=== PATIENT | female | born 1945 | race Caucasian/White ===

== ENCOUNTER 2019-05-08 01:31 | Inpatient (IN) | payer MEDICARE, MEDICAID, SELFPAY ==
[2019-05-08] VITALS (20 sets, daily range): BP systolic 103–153; BP diastolic 54–97; PULSE 61–120; RESP 16–25; TEMP 36.4–37.5; O2SAT 92–98; BMI 39.3
--- NOTE | 2019-05-08 01:41 | XR_ITS ---
WS: [id number] ONE VIEW CHEST HISTORY: 74 years old Female with SOB AP upright chest comparison 11/25/2018 FINDINGS: Interval left perihilar and lower lung zone consolidation and small pleural thickening and/or effusio n. No pneumothorax or right pleural effusion. Lung hyperexpansion. Cardiomegaly and pulmonary venous congestion unchanged. Thoracic or atherosclerosis. No subdiaphragmatic free air seen. XR/XR chest 1V portable [id number] IMPRESSION: 1. Interval left perihilar and lower lung zone consolidation with small effusio n. Differential considerations include left perihilar and lower lung zone pneum onia or neoplasm with postobstructive pneumonia. Suggest continued radiographic follow-up to confirm resolution. 2. Chronic emphysema. 3. Cardiomegaly and atherosclerosis.
--- NOTE | 2019-05-08 01:42 | ECG_ITS ---
Measurements Intervals [place] Rate: 99 P: WI: 0 QRS: -10 QRSD: 82 T: 53 QT: 333 QTc: 427 ATRIAL FIBRILLATION ABNORMAL RHYTHM ECG Compared to ECG 12/10/2018 16:06:40 Sinus rhythm no longer present Electronically Signed On 05-08-2019 22:23:19 FINISH REPAIR WORKER by Eddie Avery M.D. [id number]
--- NOTE | 2019-05-08 01:43 | USCV_ITS ---
Michelle Becerra Age: 74 Gender: F : 1945 Exam Date: 05/08/2019 02:14 Ordering Phys: Sekou Navarro KNITTER OPERATOR Technologist: Agustín Antunez Exam Location: [facility] – [place] Indication: LT LEG PAIN AND SWELLING HISTORY: Lower extremity swelling. Lower extremity pain. PROCEDURES: The venous duplex Doppler examination of both lower extremities was performed in the standard fashion. The following venous structures were evaluated: common femoral vein, profunda vein, proximal portion of the greater saphenous vein, superficial femoral vein, and the popliteal vein. In addition, the posterior tibial and peroneal trunk were evaluated. Bilaterally, the common femoral, superficial femoral, profunda femoral, popliteal, posterior tibial, greater saphenous veins, and the peroneal trunk were identified and interrogated in the standard fashion. These veins were found to be easily compressible with spontaneous blood flow. No evidence of insufficiency or thrombus noted. FINDINGS: Normal 2-D Doppler and augmentation and compressibility throughout the lower extremity venous structures. Additional imaging through the proximal calf veins also reveals no thrombus. Limited evaluation of the greater saphenous vein is patent with no thrombus.. CONCLUSIONS 1. No evidence of bilateral lower extremity occlusive or obvious non occlusive DVT. 2. Extensive left calf edema and/or cellulitis. Hayder Britton MD (Electronically Signed) Final Date: 08 May 2019 08:37 S
--- NOTE | 2019-05-08 01:44 | ED_ITS ---
Documented by User: Sekou Navarro NP 05/09/19 00:56 HPI - SOB/Dyspnea General: Chief Complaint: Shortness of Breath/Dyspnea Stated Complaint: GENERAL ILLNESS Time Seen by Provider: 05/08/19 01:32 History of Present Illness: HPI Narrative: Patient is a 74-year-old female who presents to the emergency department complaint of shortness breath for 1 week. Worse laying on side. She denies any known fever. She does admit to increasing edema to the right lower extremity. She has chronic swelling to the left lower extremity ever since surgery. She admits to cough and body aches. Denies any new watering of the eyes. She denies any chest pain, pressure, tightness. She states she is ambulatory at home with a walker. EMS reports O2 sat was 92% she is a COPD patient and uses 2 L chronically. She states she did use her albute rol MDI prior to arrival. Denies history of CHF. History for DVT to the left lower extremity. She also has dyslipidemia diabetes and thyroid issues. Denies any hypertension. She denies ever smoking. Status post partial hysterectomy thyroid surgery. She is allergic to Zosyn but can take penicillin. Denies any pain currently. MD elicited complaint: shortness of breath and cough Pertinent past history: COPD Timing: progressively worsening Severity: moderate Exacerbating factors: lying flat, exertion, movement and coughing Relieving factors: nothing Known history of: COPD and DVT Associated symptoms: Reports cough; Deny abdominal pain, fever(s) or polyuria Review of Systems Const: Denies: fever Eyes: Denies: change in vision ENMT: Denies: dry mouth Card: Reports: edema and shortness of breath on exertion Resp: Reports: shortness of breath and productive cough GI: Denies: abdominal pain : Denies: flank pain, difficulty urinating or painful urination Musc: Denies: extremity swelling or redness Skin/Breast: Denies: rash or skin swelling Neuro: Denies: headache or weakness in extremities Psych: Denies: anxiety Endo: Denies: excessive urination Wai/Lymph: Denies: purpura All/Imm: Denies: hives PFS ED PFSH: Statuses (acute, chronic, etc) shown below reflect problem list status as previously entered and may not be historically accurate Medical History (Updated 05/08/19 @ 04:23 by Gagan Albright MD) GERD (gastroesophageal reflux disease) (Acute) Hypertension (Acute) Hypothyroidism (Acute) Lymphedema (Acute) Non-insulin dependent type 2 diabetes mellitus (Acute) Weight loss (Acute) Surgical History (Updated 05/08/19 @ 04:23 by Gagan Albright MD) H/O thyroidectomy (Acute) History of ankle surgery (Acute) Family History (Updated 05/08/19 @ 04:24 by Gagan Albright MD) Other Breast cancer CAD (coronary artery disease) Diabetes Hypertension Social History (Updated 05/08/19 @ 04:24 by Gagan Albright MD) Smoking and tobacco status: never smoked Alcohol intake: never Substance/Drug Use: never Physical Exam Const: COMMON NORMALS: no apparent distress, oriented x3 and alert ORIENTATION/CONSCIOUSNESS: Yes oriented to person and Yes oriented to place HENMT: COMMON NORMALS: normocephalic HEAD & SCALP: normal to inspection and normocephalic Eye: COMMON NORMALS: PERRL, EOMs intact bilaterally and conjunctivae normal GENERAL EYE: normal appearance of both eyes CONJUNCTIVA: Yes conjunctivae normal PUPIL: Yes PERRL Neck/C-Spine: COMMON NORMALS: full ROM, no lymphadenopathy, supple, no meningeal signs and no JVD GENERAL: Yes normal visual inspection and Yes trachea midline Lymph: LYMPHATIC: no lymphadenopathy noted Chest: COMMONS NORMALS: inspection of chest normal Resp: COMMON NORMALS: no retractions EFFORT & INSPECTION: Yes able to speak in complete sentences and Yes respiratory distress (Mild labored breathing) AUSCULTATION: diminished lung sounds Cardio: COMMON NORMALS: no JVD, regular rate and regular rhythm RATE: regular rate RHYTHM: regular rhythm GI: INSPECTION: Yes normal to inspection AUSCULTATION: Yes normoactive bowel sounds : COMMON NORMALS: Yes no CVA tenderness BLADDER/KIDNEY EXAM: Yes no CVA tenderness Back/Pelvis: COMMON NORMALS: no CVA tenderness THORACIC SPINE/UPPER BACK: Yes normal to inspection LUMBAR SPINE/LOWER BACK: Yes normal to inspection Extremity: COMMON NORMALS: full ROM and normal capillary refill GENERAL: Yes normal exam except as noted and Yes edema (2+ edema right lower extremity 4+ edema to left lower extremity) Neuro: COMMON NORMALS: oriented x3, CN's II-XII intact bilaterally, moves all extremities, no focal motor deficits and no sensory deficits noted SENSORIUM/ORIENTATION: Yes alert, Yes oriented to person and Yes oriented to place MENINGEAL SIGNS: Yes no meningeal signs SPEECH: speech normal GAI T: Yes normal gait Psych: COMMON NORMALS: mental status grossly normal, thought process normal, cooperative, affect normal and speech normal APPEARANCE: Yes grossly normal SPEECH: Yes normal speech THOUGHT PROCESS: normal thought process Skin: COMMON NORMALS: no rashes or lesions noted, no wounds and skin turgor normal GENERAL SKIN EXAM: no rashes or lesions noted, elasticity normal and turgor normal Course ED course: Medical screening examination initiated. Will obtain bilateral lower extremity venous ultrasound and evaluate for COPD exacerbation versus CHF. Vital Signs: Vital signs: Vital Signs Temperature 98 F 05/09/19 00:00 Pulse Rate 88 05/09/19 00:31 Respiratory Rate 22 H 05/09/19 00:31 Blood Pressure 146/69 05/09/19 00:00 Pulse Oximetry 95 05/09/19 00:31 MDM - SOB/Dyspnea Lab Data: Labs: Lab Results 05/08/19 05/08/19 05/08/19 Range/Units 02:05 02:05 02:05 WBC 5.4 (4.0-10.0) 10^3/ uL RBC 2.46 L (4.1-5.3) 10^6/u L Hgb 8.1 L (11.5-15.3) g/dL Hct 26.0 L (37.0-47.0) % MCV 105.7 H (81-99) fL MCH 32.9 (28.0-34.0) pg MCHC 31.2 (30.0-36.0) g/dL RDW 19.6 H (12.1-15.1) % Plt Count 240 (130-400) 10^3/c mm MPV 9.5 (7.4-10.4) fL Neut % (Auto) 88.5 % Lymph % (Auto) 5.6 % [place] % (Auto) 4.7 % Eos % (Auto) 0.6 % Baso % (Auto) 0.0 % Reticulocyte % (Au to) % Neut # (Auto) 4.7 (1.8-7.7) 10^3/u L Lymph # (Auto) 0.3 L (0.8-4.8) 10^3/u L [place] # (Auto) 0.3 (0.2-0.9) 10^3/u L Eos # (Auto) 0.0 (0.0-0.8) 10^3/u L Baso # (Auto) 0.0 (0.0-0.1) 10^3/u L Nucleated RBC % (a uto) 0 % Nucleated RBCs # 0.0 /100WBC D-Dimer 2.27 H (0-0.59) ug/mIFE U Sodium 135 L (136-145) mmol/L Potassium 3.6 (3.5-5.1) mmol/L Chloride 101 (98-107) mmol/L Carbon Dioxide 22 (22-29) mmol/L Anion Gap 15.6 (5-19) BUN 8 (8-23) mg/dL Creatinine 1.2 H (0.5-0.9) mg/dL Glucose 107 (65-115) mg/dL Lactic Acid (Sepsi s) (0.5-2.2) mmol/L Calcium 7.4 L (8.5-10.5) mg/dL Magnesium 1.6 L (1.7-2.3) mg/dL Iron (37-145) ug/dL TIBC mcg/dl % Saturation (20-50) % Unsat Iron Binding (112-347) ug/dL Ferritin (15-150) ng/mL Total Bilirubin 0.6 (0.15-1.2) mg/dL AST 13 (0-32) U/L ALT < 5 (0-33) U/L Alkaline Phosphata se 55 (35-105) IU/L Troponin T Baselin e (0-10) ng/mL Troponin T 120 Min [place] (0-10) ng/mL Delta Troponin T (0-10) ABS# NT-Pro-B Natriuret Pep 1382 H (0-450) pg/mL Total Protein 5.6 L (6.6-8.7) g/dL Albumin 2.7 L (3.5-5.2) g/dL Globulin 2.9 (1.3-4.6) g/dL Vitamin B12 (232-1245) pg/mL Folate (4.8-37.3) ng/mL Procalcitonin (0-0.5) ng/mL TSH (0.27-4.20) uIU/ mL Influenza Type A A g (Negative) POC Influenza B Ag (Negative) 05/08/19 05/08/19 05/08/19 Range/Units 02:05 02:05 02:05 WBC (4.0-10.0) 10^3/ uL RBC (4.1-5.3) 10^6/u L Hgb (11.5-15.3) g/dL Hct (37.0-47.0) % MCV (81-99) fL MCH (28.0-34.0) pg MCHC (30.0-36.0) g/dL RDW (12.1-15.1) % Plt Count (130-400) 10^3/c mm MPV (7.4-10.4) fL Neut % (Auto) % Lymph % (Auto) % [place] % (Auto) % Eos % (Auto) % Baso % (Auto) % Reticulocyte % (Au to) 3.4200 % Neut # (Auto) (1.8-7.7) 10^3/u L Lymph # (Auto) (0.8-4.8) 10^3/u L [place] # (Auto) (0.2-0.9) 10^3/u L Eos # (Auto) (0.0-0.8) 10^3/u L Baso # (Auto) (0.0-0.1) 10^3/u L Nucleated RBC % (a uto) % Nucleated RBCs # /100WBC D-Dimer (0-0.59) ug/mIFE U Sodium (136-145) mmol/L Potassium (3.5-5.1) mmol/L Chloride (98-107) mmol/L Carbon Dioxide (22-29) mmol/L Anion Gap (5-19) BUN (8-23) mg/dL Creatinine (0.5-0.9) mg/dL Glucose (65-115) mg/dL Lactic Acid (Sepsi s) 0.9 (0.5-2.2) mmol/L Calcium (8.5-10.5) mg/dL Magnesium (1.7-2.3) mg/dL Iron (37-145) ug/dL TIBC mcg/dl % Saturation (20-50) % Unsat Iron Binding (112-347) ug/dL Ferritin (15-150) ng/mL Total Bilirubin (0.15-1.2) mg/dL AST (0-32) U/L ALT (0-33) U/L Alkaline Phosphata se (35-105) IU/L Troponin T Baselin e 34 H (0-10) ng/mL Troponin T 120 Min [place] (0-10) ng/mL Delta Troponin T (0-10) ABS# NT-Pro-B Natriuret Pep (0-450) pg/mL Total Protein (6.6-8.7) g/dL Albumin (3.5-5.2) g/dL Globulin (1.3-4.6) g/dL Vitamin B12 (232-1245) pg/mL Folate (4.8-37.3) ng/mL Procalcitonin (0-0.5) ng/mL TSH (0.27-4.20) uIU/ mL Influenza Type A A g (Negative) POC Influenza B Ag (Negative) 05/08/19 05/08/19 05/08/19 Range/Units 02:05 02:05 02:05 WBC (4.0-10.0) 10^3/ uL RBC (4.1-5.3) 10^6/u L Hgb (11.5-15.3) g/dL Hct (37.0-47.0) % MCV (81-99) fL MCH (28.0-34.0) pg MCHC (30.0-36.0) g/dL RDW (12.1-15.1) % Plt Count (130-400) 10^3/c mm MPV (7.4-10.4) fL Neut % (Auto) % Lymph % (Auto) % [place] % (Auto) % Eos % (Auto) % Baso % (Auto) % Reticulocyte % (Au to) % Neut # (Auto) (1.8-7.7) 10^3/u L Lymph # (Auto) (0.8-4.8) 10^3/u L [place] # (Auto) (0.2-0.9) 10^3/u L Eos # (Auto) (0.0-0.8) 10^3/u L Baso # (Auto) (0.0-0.1) 10^3/u L Nucleated RBC % (a uto) % Nucleated RBCs # /100WBC D-Dimer (0-0.59) ug/mIFE U Sodium (136-145) mmol/L Potassium (3.5-5.1) mmol/L Chloride (98-107) mmol/L Carbon Dioxide (22-29) mmol/L Anion Gap (5-19) BUN (8-23) mg/dL Creatinine (0.5-0.9) mg/dL Glucose (65-115) mg/dL Lactic Acid (Sepsi s) (0.5-2.2) mmol/L Calcium (8.5-10.5) mg/dL Magnesium (1.7-2.3) mg/dL Iron 17 L (37-145) ug/dL TIBC 180 mcg/dl % Saturation 9.4 L (20-50) % Unsat Iron Binding 163 (112-347) ug/dL Ferritin 94 (15-150) ng/mL Total Bilirubin (0.15-1.2) mg/dL AST (0-32) U/L ALT (0-33) U/L Alkaline Phosphata se (35-105) IU/L Troponin T Baselin e (0-10) ng/mL Troponin T 120 Min [place] (0-10) ng/mL Delta Troponin T (0-10) ABS# NT-Pro-B Natriuret Pep (0-450) pg/mL Total Protein (6.6-8.7) g/dL Albumin (3.5-5.2) g/dL Globulin (1.3-4.6) g/dL Vitamin B12 150 L (232-1245) pg/mL Folate 3.9 L (4.8-37.3) ng/mL Procalcitonin 0.20 (0-0.5) ng/mL TSH 0.50 (0.27-4.20) uIU/ mL Influenza Type A A g (Negative) POC Influenza B Ag (Negative) 05/08/19 05/08/19 Range/Units 03:27 04:04 WBC (4.0-10.0) 10^3/ uL RBC (4.1-5.3) 10^6/u L Hgb (11.5-15.3) g/dL Hct (37.0-47.0) % MCV (81-99) fL MCH (28.0-34.0) pg MCHC (30.0-36.0) g/dL RDW (12.1-15.1) % Plt Count (130-400) 10^3/c mm MPV (7.4-10.4) fL Neut % (Auto) % Lymph % (Auto) % [place] % (Auto) % Eos % (Auto) % Baso % (Auto) % Reticulocyte % (Au to) % Neut # (Auto) (1.8-7.7) 10^3/u L Lymph # (Auto) (0.8-4.8) 10^3/u L [place] # (Auto) (0.2-0.9) 10^3/u L Eos # (Auto) (0.0-0.8) 10^3/u L Baso # (Auto) (0.0-0.1) 10^3/u L Nucleated RBC % (a uto) % Nucleated RBCs # /100WBC D-Dimer (0-0.59) ug/mIFE U Sodium (136-145) mmol/L Potassium (3.5-5.1) mmol/L Chloride (98-107) mmol/L Carbon Dioxide (22-29) mmol/L Anion Gap (5-19) BUN (8-23) mg/dL Creatinine (0.5-0.9) mg/dL Glucose (65-115) mg/dL Lactic Acid (Sepsi s) (0.5-2.2) mmol/L Calcium (8.5-10.5) mg/dL Magnesium (1.7-2.3) mg/dL Iron (37-145) ug/dL TIBC mcg/dl % Saturation (20-50) % Unsat Iron Binding (112-347) ug/dL Ferritin (15-150) ng/mL Total Bilirubin (0.15-1.2) mg/dL AST (0-32) U/L ALT (0-33) U/L Alkaline Phosphata se (35-105) IU/L Troponin T Baselin e (0-10) ng/mL Troponin T 120 Min [place] 35.90 H (0-10) ng/mL Delta Troponin T 1.90 (0-10) ABS# NT-Pro-B Natriuret Pep (0-450) pg/mL Total Protein (6.6-8.7) g/dL Albumin (3.5-5.2) g/dL Globulin (1.3-4.6) g/dL Vitamin B12 (232-1245) pg/mL Folate (4.8-37.3) ng/mL Procalcitonin (0-0.5) ng/mL TSH (0.27-4.20) uIU/ mL Influenza Type A A g Negative (Negative) POC Influenza B Ag Negative (Negative) Discharge Plan Discharge Admit Provider: Gagan Albright Discharge Date/Time: 05/08/19 05:29 Coding Level of Care Code ED Commercial 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 Documented by User: Juwan Garcia DO 05/08/19 19:49 HPI - SOB/Dyspnea General: Chief Complaint: Shortness of Breath/Dyspnea Stated Complaint: GENERAL ILLNESS Time Seen by Provider: 05/08/19 01:32 PFSH ED PFSH: Statuses (acute, chronic, etc) shown below reflect problem list status as previously entered and may not be historically accurate Medical History (Updated 05/08/19 @ 04:23 by Gagan Albright MD) GERD (gastroesophageal reflux disease) (Acute) Hypertension (Acute) Hypothyroidism (Acute) Lymphedema (Acute) Non-insulin dependent type 2 diabetes mellitus (Acute) Weight loss (Acute) Surgical History (Updated 05/08/19 @ 04:23 by Gagan Albright MD) H/O thyroidectomy (Acute) History of ankle surgery (Acute) Family History (Updated 05/08/19 @ 04:24 by Gagan Albright MD) Other Breast cancer CAD (coronary artery disease) Diabetes Hypertension Social History (Updated 05/08/19 @ 04:24 by Gagan Albright MD) Smoking and tobacco status: never smoked Alcohol intake: never Substance/Drug Use: never Course Vital Signs: Vital signs: Vital Signs Temperature 98 F 05/09/19 00:00 Pulse Rate 88 05/09/19 00:31 Respiratory Rate 22 H 05/09/19 00:31 Blood Pressure 146/69 05/09/19 00:00 Pulse Oximetry 95 05/09/19 00:31 MDM - SOB/Dyspnea MDM Narrative: Medical decision making narrative: This patient was originally seen by JAIDA Walters. I agree with his history, evaluation, and work-up. He checked her out to me. She was a 74-year-old female presenting with shortness of breath. Her blood pressure was low initially, but improved. She has a significant left-sided pleural effusion. Her BNP is elevated. There is no leukocytosis. She does have an elevated d-dimer as well. CTA has been ordered and is pending. She will go to the floor Lab Data: Labs: Lab Results 05/08/19 05/08/19 05/08/19 Range/Units 02:05 02:05 02:05 WBC 5.4 (4.0-10.0) 10^3/ uL RBC 2.46 L (4.1-5.3) 10^6/u L Hgb 8.1 L (11.5-15.3) g/dL Hct 26.0 L (37.0-47.0) % MCV 105.7 H (81-99) fL MCH 32.9 (28.0-34.0) pg MCHC 31.2 (30.0-36.0) g/dL RDW 19.6 H (12.1-15.1) % Plt Count 240 (130-400) 10^3/c mm MPV 9.5 (7.4-10.4) fL Neut % (Auto) 88.5 % Lymph % (Auto) 5.6 % [place] % (Auto) 4.7 % Eos % (Auto) 0.6 % Baso % (Auto) 0.0 % Reticulocyte % (Au to) % Neut # (Auto) 4.7 (1.8-7.7) 10^3/u L Lymph # (Auto) 0.3 L (0.8-4.8) 10^3/u L [place] # (Auto) 0.3 (0.2-0.9) 10^3/u L Eos # (Auto) 0.0 (0.0-0.8) 10^3/u L Baso # (Auto) 0.0 (0.0-0.1) 10^3/u L Nucleated RBC % (a uto) 0 % Nucleated RBCs # 0.0 /100WBC D-Dimer 2.27 H (0-0.59) ug/mIFE U Sodium 135 L (136-145) mmol/L Potassium 3.6 (3.5-5.1) mmol/L Chloride 101 (98-107) mmol/L Carbon Dioxide 22 (22-29) mmol/L Anion Gap 15.6 (5-19) BUN 8 (8-23) mg/dL Creatinine 1.2 H (0.5-0.9) mg/dL Glucose 107 (65-115) mg/dL Lactic Acid (Sepsi s) (0.5-2.2) mmol/L Calcium 7.4 L (8.5-10.5) mg/dL Magnesium 1.6 L (1.7-2.3) mg/dL Iron (37-145) ug/dL TIBC mcg/dl % Saturation (20-50) % Unsat Iron Binding (112-347) ug/dL Ferritin (15-150) ng/mL Total Bilirubin 0.6 (0.15-1.2) mg/dL AST 13 (0-32) U/L ALT < 5 (0-33) U/L Alkaline Phosphata se 55 (35-105) IU/L Troponin T Baselin e (0-10) ng/mL Troponin T 120 Min [place] (0-10) ng/mL Delta Troponin T (0-10) ABS# NT-Pro-B Natriuret Pep 1382 H (0-450) pg/mL Total Protein 5.6 L (6.6-8.7) g/dL Albumin 2.7 L (3.5-5.2) g/dL Globulin 2.9 (1.3-4.6) g/dL Vitamin B12 (232-1245) pg/mL Folate (4.8-37.3) ng/mL Procalcitonin (0-0.5) ng/mL TSH (0.27-4.20) uIU/ mL Influenza Type A A g (Negative) POC Influenza B Ag (Negative) 05/08/19 05/08/19 05/08/19 Range/Units 02:05 02:05 02:05 WBC (4.0-10.0) 10^3/ uL RBC (4.1-5.3) 10^6/u L Hgb (11.5-15.3) g/dL Hct (37.0-47.0) % MCV (81-99) fL MCH (28.0-34.0) pg MCHC (30.0-36.0) g/dL RDW (12.1-15.1) % Plt Count (130-400) 10^3/c mm MPV (7.4-10.4) fL Neut % (Auto) % Lymph % (Auto) % [place] % (Auto) % Eos % (Auto) % Baso % (Auto) % Reticulocyte % (Au to) 3.4200 % Neut # (Auto) (1.8-7.7) 10^3/u L Lymph # (Auto) (0.8-4.8) 10^3/u L [place] # (Auto) (0.2-0.9) 10^3/u L Eos # (Auto) (0.0-0.8) 10^3/u L Baso # (Auto) (0.0-0.1) 10^3/u L Nucleated RBC % (a uto) % Nucleated RBCs # /100WBC D-Dimer (0-0.59) ug/mIFE U Sodium (136-145) mmol/L Potassium (3.5-5.1) mmol/L Chloride (98-107) mmol/L Carbon Dioxide (22-29) mmol/L Anion Gap (5-19) BUN (8-23) mg/dL Creatinine (0.5-0.9) mg/dL Glucose (65-115) mg/dL Lactic Acid (Sepsi s) 0.9 (0.5-2.2) mmol/L Calcium (8.5-10.5) mg/dL Magnesium (1.7-2.3) mg/dL Iron (37-145) ug/dL TIBC mcg/dl % Saturation (20-50) % Unsat Iron Binding (112-347) ug/dL Ferritin (15-150) ng/mL Total Bilirubin (0.15-1.2) mg/dL AST (0-32) U/L ALT (0-33) U/L Alkaline Phosphata se (35-105) IU/L Troponin T Baselin e 34 H (0-10) ng/mL Troponin T 120 Min [place] (0-10) ng/mL Delta Troponin T (0-10) ABS# NT-Pro-B Natriuret Pep (0-450) pg/mL Total Protein (6.6-8.7) g/dL Albumin (3.5-5.2) g/dL Globulin (1.3-4.6) g/dL Vitamin B12 (232-1245) pg/mL Folate (4.8-37.3) ng/mL Procalcitonin (0-0.5) ng/mL TSH (0.27-4.20) uIU/ mL Influenza Type A A g (Negative) POC Influenza B Ag (Negative) 05/08/19 05/08/19 05/08/19 Range/Units 02:05 02:05 02:05 WBC (4.0-10.0) 10^3/ uL RBC (4.1-5.3) 10^6/u L Hgb (11.5-15.3) g/dL Hct (37.0-47.0) % MCV (81-99) fL MCH (28.0-34.0) pg MCHC (30.0-36.0) g/dL RDW (12.1-15.1) % Plt Count (130-400) 10^3/c mm MPV (7.4-10.4) fL Neut % (Auto) % Lymph % (Auto) % [place] % (Auto) % Eos % (Auto) % Baso % (Auto) % Reticulocyte % (Au to) % Neut # (Auto) (1.8-7.7) 10^3/u L Lymph # (Auto) (0.8-4.8) 10^3/u L [place] # (Auto) (0.2-0.9) 10^3/u L Eos # (Auto) (0.0-0.8) 10^3/u L Baso # (Auto) (0.0-0.1) 10^3/u L Nucleated RBC % (a uto) % Nucleated RBCs # /100WBC D-Dimer (0-0.59) ug/mIFE U Sodium (136-145) mmol/L Potassium (3.5-5.1) mmol/L Chloride (98-107) mmol/L Carbon Dioxide (22-29) mmol/L Anion Gap (5-19) BUN (8-23) mg/dL Creatinine (0.5-0.9) mg/dL Glucose (65-115) mg/dL Lactic Acid (Sepsi s) (0.5-2.2) mmol/L Calcium (8.5-10.5) mg/dL Magnesium (1.7-2.3) mg/dL Iron 17 L (37-145) ug/dL TIBC 180 mcg/dl % Saturation 9.4 L (20-50) % Unsat Iron Binding 163 (112-347) ug/dL Ferritin 94 (15-150) ng/mL Total Bilirubin (0.15-1.2) mg/dL AST (0-32) U/L ALT (0-33) U/L Alkaline Phosphata se (35-105) IU/L Troponin T Baselin e (0-10) ng/mL Troponin T 120 Min [place] (0-10) ng/mL Delta Troponin T (0-10) ABS# NT-Pro-B Natriuret Pep (0-450) pg/mL Total Protein (6.6-8.7) g/dL Albumin (3.5-5.2) g/dL Globulin (1.3-4.6) g/dL Vitamin B12 150 L (232-1245) pg/mL Folate 3.9 L (4.8-37.3) ng/mL Procalcitonin 0.20 (0-0.5) ng/mL TSH 0.50 (0.27-4.20) uIU/ mL Influenza Type A A g (Negative) POC Influenza B Ag (Negative) 05/08/19 05/08/19 Range/Units 03:27 04:04 WBC (4.0-10.0) 10^3/ uL RBC (4.1-5.3) 10^6/u L Hgb (11.5-15.3) g/dL Hct (37.0-47.0) % MCV (81-99) fL MCH (28.0-34.0) pg MCHC (30.0-36.0) g/dL RDW (12.1-15.1) % Plt Count (130-400) 10^3/c mm MPV (7.4-10.4) fL Neut % (Auto) % Lymph % (Auto) % [place] % (Auto) % Eos % (Auto) % Baso % (Auto) % Reticulocyte % (Au to) % Neut # (Auto) (1.8-7.7) 10^3/u L Lymph # (Auto) (0.8-4.8) 10^3/u L [place] # (Auto) (0.2-0.9) 10^3/u L Eos # (Auto) (0.0-0.8) 10^3/u L Baso # (Auto) (0.0-0.1) 10^3/u L Nucleated RBC % (a uto) % Nucleated RBCs # /100WBC D-Dimer (0-0.59) ug/mIFE U Sodium (136-145) mmol/L Potassium (3.5-5.1) mmol/L Chloride (98-107) mmol/L Carbon Dioxide (22-29) mmol/L Anion Gap (5-19) BUN (8-23) mg/dL Creatinine (0.5-0.9) mg/dL Glucose (65-115) mg/dL Lactic Acid (Sepsi s) (0.5-2.2) mmol/L Calcium (8.5-10.5) mg/dL Magnesium (1.7-2.3) mg/dL Iron (37-145) ug/dL TIBC mcg/dl % Saturation (20-50) % Unsat Iron Binding (112-347) ug/dL Ferritin (15-150) ng/mL Total Bilirubin (0.15-1.2) mg/dL AST (0-32) U/L ALT (0-33) U/L Alkaline Phosphata se (35-105) IU/L Troponin T Baselin e (0-10) ng/mL Troponin T 120 Min [place] 35.90 H (0-10) ng/mL Delta Troponin T 1.90 (0-10) ABS# NT-Pro-B Natriuret Pep (0-450) pg/mL Total Protein (6.6-8.7) g/dL Albumin (3.5-5.2) g/dL Globulin (1.3-4.6) g/dL Vitamin B12 (232-1245) pg/mL Folate (4.8-37.3) ng/mL Procalcitonin (0-0.5) ng/mL TSH (0.27-4.20) uIU/ mL Influenza Type A A g Negative (Negative) POC Influenza B Ag Negative (Negative) Discharge Plan Discharge Admit Provider: Gagan Albright Discharge Date/Time: 05/08/19 05:29 Coding Level of Care Code ED [employer] 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
[2019-05-08 02:14] LABS: Eosinophils % 0.6 %; Hemoglobin 8.1 g/dL (11.5-15.3); Lymphocytes # 0.3 10^3/uL (0.8-4.8); Lymphocytes % 5.6 %; Mean Corpuscular HGB Conc 31.2 g/dL (30.0-36.0); Mean Corpuscular Hemoglobin 32.9 pg (28.0-34.0); Mean Corpuscular Volume 105.7 fL (81-99); Mean Platelet Volume 9.5 fL (7.4-10.4); Monocytes # 0.3 10^3/uL (0.2-0.9); Monocytes % 4.7 %; Neutrophils # 4.7 10^3/uL (1.8-7.7); Neutrophils % 88.5 %; Nucleated Red Blood Cells % 0 %; Platelet Count 240 10^3/cmm (130-400); Red Blood Count 2.46 10^6/uL (4.1-5.3); Red Cell Distribution Width 19.6 % (12.1-15.1); White Blood Count 5.4 10^3/uL (4.0-10.0)
--- NOTE | 2019-05-08 02:39 | PC.NURSE ---
Before performing the EKG stated she needed to use the restroom, I had already placed a bedside commode in the room for her. I assisted her to and from the commode with little assistance. Hooked patient up to the quality coordinator, patient stated that she felt more comfortable sitting and that she would like to sit in a chair. I assisted the patient to the chair and put call light in reach and informed her that if she needed help moving at anytime to call for me or the nurse. Patient understood this.
[2019-05-08 02:40] LABS: D Dimer 2.27 ug/mIFEU (0-0.59)
[2019-05-08 02:55] LABS: Alanine Aminotransferase < 5 U/L (0-33); Albumin Level 2.7 g/dL (3.5-5.2); Alkaline Phosphatase 55 IU/L (35-105); Anion Gap 15.6 (5-19); Aspartate Amino Transferase 13 U/L (0-32); Blood Urea Nitrogen 8 mg/dL (8-23); Calcium 7.4 mg/dL (8.5-10.5); Carbon Dioxide 22 mmol/L (22-29); Chloride 101 mmol/L (98-107); Globulin 2.9 g/dL (1.3-4.6); Glucose 107 mg/dL (65-115); Magnesium 1.6 mg/dL (1.7-2.3); NT Pro B Type Natriuretic Pept 1382 pg/mL (0-450); Potassium 3.6 mmol/L (3.5-5.1); Sodium 135 mmol/L (136-145); Total Bilirubin 0.6 mg/dL (0.15-1.2); Total Protein 5.6 g/dL (6.6-8.7)
[2019-05-08] MEDS: FUROsemide 10 mg/mL SDV 4mL 40 MG IVP ×3 (02:58→20:38)
--- NOTE | 2019-05-08 02:59 | CTR_ITS ---
PROCEDURE INFORMATION: Exam: CT Angiography Chest With Contrast Exam date and time: 05/08/2019 3:17 AM Age: 74 years old Clinical indication: Dyspnea; Additional info: SOB, + d dimer, left pleural effusion TECHNIQUE: Imaging protocol: Computed tomographic angiography of the chest with intravenous contrast. 3D rendering: MIP and/or 3D reconstructed images were created by the technologist. Total DLP: 1912.55 mGy-cm Radiation optimization: All CT scans at this facility use at least one of these dose optimization techniques: automated exposure control; mA and/or kV adjustment per patient size (includes targeted exams where dose is matched to clinical indication); or iterative reconstruction. Contrast material: VISI; Contrast volume: 95 ml; Contrast route: IV; COMPARISON: CTA Chest-Pulmonary Emb [id number] 10/05/2018 11:55 AM FINDINGS: Pulmonary arteries: Normal. No pulmonary emboli. Aorta: Unremarkable. No aortic aneurysm. No aortic dissection. Lungs: There are patchy and strandy opacities and some consolidation seen within the lingula compatible with atelectasis. Superimposed pneumonia cannot be excluded. Pleural space: There is a tiny left pleural effusion. Heart: Unremarkable. No cardiomegaly. No pericardial effusion. Stomach and bowel: The there is a small hiatal hernia containing a small portion of the proximal stomach. Lymph nodes: Unremarkable. No enlarged lymph nodes. Bones/joints: Unremarkable. No acute fracture. Soft tissues: Unremarkable. CT/CT angio chest w abd pel w con IMPRESSION: 1. There is no evidence for pulmonary emboli. 2. Strandy and patchy opacities and some consolidation is seen within the lingula compatible with atelectasis. Superimposed pneumonia cannot be excluded. 3. Small hiatal hernia Radiation Dose CTDIVOL = (mGy): DLP = 1912.55 (mGy-cm)
[2019-05-08] MEDS: magnesium sulfate premix 2 GM/50 ML PIGGYBACK IV (03:01)
[2019-05-08 03:02] LABS: Lactic Acid level (Lactate) 0.9 mmol/L (0.5-2.2)
[2019-05-08] MEDS: ipratropium-albuterol 3 mL Neb INHALATION ×5 (03:07→19:30)
[2019-05-08 03:11] LABS: Troponin(5th) Baseline 34 ng/mL (0-10)
--- NOTE | 2019-05-08 03:34 | PC.NURSE ---
Assisted patient to the commode and back to chair. Patient did soil herself, with the help of the nurse we cleaned her up, cleaned the chair and placed a kirby on the chair. Patient had a spare pair of pants and was promptly changed.
--- NOTE | 2019-05-08 03:42 | ECG_ITS ---
Measurements Intervals [place] Rate: 101 P: 56 SC: 141 QRS: -2 QRSD: 77 T: 52 QT: 351 QTc: 456 SINUS TACHYCARDIA WITH FREQUENT SUPRAVENTRICULAR PREMATURE COMPLEXES ABNORMAL RHYTHM ECG Compared to ECG 12/10/2018 16:06:40 Sinus rhythm no longer present Electronically Signed On 05-08-2019 22:25:08 ASSOCIATE DIRECTOR FINANCE by Eddie Avery M.D. [id number]
[2019-05-08 03:52] LABS: Influenza A by IFA Negative (Negative); Influenza B by IFA Negative (Negative)
--- NOTE | 2019-05-08 04:13 | PM.HP ---
Providers/Chief Complaint Chief Complaint: GENERAL ILLNESS History of Present Illness Michelle Becerra is a 74 year old female with a past medical history of thyroid cancer status post thyroidectomy, hypothyroidism, type 2 diabetes mellitus, hypertension, obstructive sleep apnea not on any medications, GERD, who presents to the emergency room due to complaints of a 1-1/2-week history of shortness of breath, cough, orthopnea, paroxysmal nocturnal dyspnea. Patient states that she lives in a independent care living facility, ambulates with a walker, had a has a daughter who helps her out. Patient states that she has been doing well, but for the last week and a half she is felt more short of breath with minimal exertion, shortness of breath at rest, has orthopnea, paroxysmal nocturnal dyspnea, she has to sit up in a chair or lie on her side in order to fall asleep. She denies a history of CAD, denies a history of CHF, but does have lower extremity edema on top of lymphedema. Denies chest pain, denies palpitations, does report lightheadedness and dizziness at times. Denies a history of lung disease, denies a history of smoking, denies history of hemoptysis. Patient states the cough is nonproductive. No fevers. No chills. No sick contacts. No recent travel. She did have PFTs in 12/17/2014 which showed an FEV1 over FVC of 67.92, FEV1 of 1.09, FVC of 1.6. Patient states that also for the last week and a half she has had severe constipation, has had only one bowel movement, no bloody stools, but has had black stools, she also reports that she is lost over 70 pounds in the last year or so, without trying, she originally was 293 pounds, she is down to 216 pounds. She also reports weakness, fatigue. Does have a history of thyroid cancer status post thyroidectomy. No history of breast cancer. No history of colon cancer. Review of Systems Const: Denies: fever, chills, fatigue or malaise Eyes: Denies: change in vision or blurry vision ENMT: Denies: nasal congestion Resp: Reports: shortness of breath and non-productive cough; Denies: productive cough or wheezing GI: Reports: change in bowel habits; Denies: abdominal pain, nausea, vomiting, vomiting blood, diarrhea, constipation, blood in stool or black tarry stool : Denies: flank pain, painful urination or urinary frequency Musc: Denies: neck pain or back pain Skin/Breast: Denies: rash Neuro: Denies: headache, dizziness or vertigo Psych: Denies: anxiety or depression Endo: Denies: excessive urination or excessive thirst Medications/Allergies Home Medications Medication Instructions Recorded Confirmed Last Taken Type Aspir-81 81 mg PO DAILY 05/08/19 05/08/19 Unknown History Januvia 100 mg PO DAILY 05/08/19 05/08/19 Unknown History acetaminophen 500 mg PO 05/08/19 Unknown History fenofibrate 48 mg PO DAILY 05/08/19 05/08/19 Unknown History levothyroxine 175 mcg PO DAILY 05/08/19 05/08/19 Unknown History omeprazole 40 mg PO DAILY 05/08/19 05/08/19 Unknown History Allergies Allergy/AdvReac Type Severity Reaction Status Date / Time piperacillin [From Zosyn] Allergy ALGY-Rash Verified 05/08/19 01:41 tazobactam [From Zosyn] Allergy ALGY-Rash Verified 05/08/19 01:41 PFSH Acute PFSH: Statuses (acute, chronic, etc) shown below reflect problem list status as previously entered and may not be historically accurate Medical History (Updated 05/08/19 @ 04:23 by Gagan Albright MD) GERD (gastroesophageal reflux disease) (Acute) Hypertension (Acute) Hypothyroidism (Acute) Lymphedema (Acute) Non-insulin dependent type 2 diabetes mellitus (Acute) Weight loss (Acute) Surgical History (Updated 05/08/19 @ 04:23 by Gagan Albright MD) H/O thyroidectomy (Acute) History of ankle surgery (Acute) Family History (Updated 05/08/19 @ 04:24 by Gagan Albright MD) Other Breast cancer CAD (coronary artery disease) Diabetes Hypertension Social History (Updated 05/08/19 @ 04:24 by Gagan Albright MD) Smoking and tobacco status: never smoked Alcohol intake: never Substance/Drug Use: never Vitals/I&O/Wt Last Vital Signs Temp 99.5 F 05/08/19 01:32 Pulse 81 05/08/19 03:10 Resp 20 H 05/08/19 03:10 BP 149/97 05/08/19 02:44 Pulse Ox 93 05/08/19 03:10 Weight last 48 hrs Weight 97.522 kg Physical Exam Const: COMMON NORMALS: no apparent distress and oriented x3 GENERAL APPEARANCE: cooperative and comfortable HENMT: COMMON NORMALS: normocephalic HEAD & SCALP: normocephalic Eye: COMMON NORMALS: PERRL and EOMs intact bilaterally GENERAL EYE: normal appearance of both eyes PUPIL: Yes PERRL Neck/C-Spine: COMMON NORMALS: full ROM, no lymphadenopathy and no JVD Lymph: LYMPHATIC: no lymphadenopathy noted Resp: COMMON NORMALS: normal respiratory effort, no retractions, no use of accessory muscles and clear to auscultation bilaterally AUSCULTATION: breath sounds absent on th left Cardio: COMMON NORMALS: no JVD, regular rate, regular rhythm, S1 normal heart sound, S2 normal heart sound, no gallops, no clicks and no murmurs RATE: regular rate RHYTHM: regular rhythm HEART SOUNDS: S1 normal and S2 normal GI: COMMON NORMALS: normal to inspection, nondistended, normoactive bowel sounds, soft to palpation, non-tender and no hepatosplenomegaly PALPATION: Yes soft and Yes no hepatosplenomegaly : COMMON NORMALS: Yes no CVA tenderness Back/Pelvis: COMMON NORMALS: no CVA tenderness and thoracic and lumbar spine normal to inspection Extremity: COMMON NORMALS: normal to inspection and full ROM NARRATIVE EXTREMITY EXAM: Bilateral lower extremity lymphedema Bilateral 1+ pitting edema Neuro: COMMON NORMALS: oriented x3, CN's II-XII intact bilaterally, moves all extremities and no focal motor deficits Psych: COMMON NORMALS: mental status grossly normal, thought process normal and cooperative THOUGHT PROCESS: normal thought process Skin: COMMON NORMALS: no rashes or lesions noted Data : 05/08/19 02:05 05/08/19 02:05 Micro: Microbiology 05/08/19 02:08 Blood Culture - Preliminary Blood SPECIMEN COLLECTED 05/08/19 02:05 Blood Culture - Preliminary Blood SPECIMEN COLLECTED A&P Assessment and plan (1) Acute respiratory failure with hypoxia: -Chest x-ray shows large left pleural effusion -BNP 1382, with 1+ pitting edema, no JVD, no crackles -Findings concerning for CHF exacerbation -Possible malignant pleural effusion? Given weight loss, fatigue, malaise anemia -Patient has been afebrile, no leukocytosis, lactic acid 0.9, flu negative, unlikely pneumonia Plan: -CT chest abdomen pending -Received 1 dose of 40 mg Lasix, will leave up to the morning team to daily dose -Echocardiogram pending -Continue oxygen therapy -Duo nebs -Follow blood cultures -Pro-Sterling -Continue doxycycline until CT findings become available Status: Acute Code(s): J96.01 - Acute respiratory failure with hypoxia (2) Weight loss: Status: Acute Code(s): R63.4 - Abnormal weight loss (3) Macrocytic anemia: -B12, folate, iron, TIBC, reticulocyte, ferritin, Hemoccult stool -Trend hemoglobins Status: Acute Code(s): D53.9 - Nutritional anemia, unspecified (4) Non-insulin dependent type 2 diabetes mellitus: Low-dose sliding scale Status: Acute Code(s): E11.9 - Type 2 diabetes mellitus without complications (5) Lymphedema: Status: Acute Code(s): I89.0 - Lymphedema, not elsewhere classified (6) GERD (gastroesophageal reflux disease): Status: Acute Code(s): K21.9 - Gastro-esophageal reflux disease without esophagitis (7) Hypertension: Status: Acute Code(s): I10 - Essential (primary) hypertension (8) Hypothyroidism: Status: Acute Code(s): E03.9 - Hypothyroidism, unspecified Attestations Medical Necessity Statement*: Patient requires hospitalization, inpatient, greater than 2 midnights, for acute respiratory failure Coding Level of Care Code Acute High 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
[2019-05-08] MEDS: azithromycin 500 MG in sodium chloride 0.9% 250 ML 250 MG IV (04:48)
--- NOTE | 2019-05-08 05:56 | USCV_ITS ---
Michelle Becerra Age: 74 Gender: F : 1945 Exam Date: 05/08/2019 14:58 Ordering Phys: Gagan Albright MD Technologist: Agustín Antunez Exam Location: [facility] [place] Indication: SOB BP: 143 / 74 HR: 89 Rhythm: Sinus Technical Quality: Fair MEASUREMENTS (Male / Female) Normal Values 2D ECHO LV Diastolic Diameter PLAX 5.0 cm 4.2 - 5.9 / 3.9 - 5.3 cm LV Systolic Diameter PLAX 2.9 cm IVS Diastolic Thickness 1.0 cm 0.6 - 1.0 / 0.6 - 0.9 cm IVS Systolic Thickness 1.5 cm LVPW Diastolic Thickness 1.0 cm 0.6 - 1.0 / 0.6 - 0.9 cm LVPW Systolic Thickness 1.5 cm LVOT Diameter 2.0 cm LV Ejection Fraction 2D Teich 74.0 % LV Ejection Fraction MOD 2C 73.2 % LV Ejection Fraction 2C AL 75.0 % LA Diameter 4.8 cm LA Width 3.4 cm LA Height 3.9 cm RA Width 2.8 cm RA Height 4.7 cm M-MODE LV Diastolic Diameter MM 4.9 cm 4.2 - 5.9 / 3.9 - 5.3 cm LV Systolic Diameter MM 3.2 cm LV Ejection Fraction MM Teich 64.6 % IVS Diastolic Thickness MM 1.3 cm 0.6 - 1.0 / 0.6 - 0.9 cm IVS Systolic Thickness MM 1.8 cm LVPW Diastolic Thickness MM 1.0 cm 0.6 - 1.0 / 0.6 - 0.9 cm LVPW Systolic Thickness MM 1.8 cm RV Diastolic Diameter MM 1.5 cm Aortic Annulus Diameter 2.9 cm LA Ao Ratio MM 1.6 MV E Point Septal Separation 0.8 cm DOPPLER AV Peak Velocity 247.0 cm/s LVOT Peak Velocity 121.0 cm/s AV Area Cont Eq vti 2.0 cm squared AV Area Cont Eq pk 1.6 cm squared MV Area PHT 5.0 cm squared Mitral E to A Ratio 1.0 MV E' Velocity 9.0 cm/s Mitral E to MV E' Ratio 13.3 Mitral E to LV E' Lateral Ratio 15.9 Mitral E to LV E' Septal Ratio 11.5 TR Peak Velocity 289.0 cm/s TR Peak Gradient 33.4 mmHg TV Peak E Velocity 94.0 cm/s Right Atrial Pressure 3.0 mmHg Pulmonary Artery Systolic Pressu 36.4 mmHg PV Peak Velocity 104.0 cm/s FINDINGS Left Ventricle Normal left ventricular cavity size. Normal left ventricular systolic function. No regional wall motion abnormalities. Left ventricular ejection fraction is estimated at 64 %. Grade I/IV diastolic dysfunction (abnormal relaxation filling pattern), normal to mildly elevated filling pressures. Right Ventricle The right ventricle is normal in size and function. Right Atrium The right atrium is normal in size. Left Atrium Moderately increased left atrial size. Mitral Valve Moderately thickened mitral valve. No mitral valve stenosis. Mild mitral valve regurgitation. Aortic Valve Mild aortic valve calcification. No aortic valve stenosis. Trace aortic valve regurgitation. Tricuspid Valve Trace tricuspid valve regurgitation. Pulmonic Valve Structurally normal pulmonic valve without significant stenosis. There is no pulmonic regurgitation. Pericardium Normal pericardium without effusion. Aorta Normal ascending aorta dimension. CONCLUSIONS 1-Normal left ventricular cavity size. Normal left ventricular systolic function. No regional wall motion abnormalities. Left ventricular ejection fraction is estimated at 64 %. Grade I/IV diastolic dysfunction (abnormal relaxation filling pattern), normal to mildly elevated filling pressures. 2-Moderately increased left atrial size. 3-Moderately thickened mitral valve. No mitral valve stenosis. Mild mitral valve regurgitation. 4-Mild aortic valve calcification. No aortic valve stenosis. Trace aortic valve regurgitation. 5-Trace tricuspid valve regurgitation. 6-There is no pericardial effusion. 7-Pulmonary artery systolic pressure is within normal limits. 8-No significant change since the prior echocardiogram study of 06/22/2014. Eddie Avery MD (Electronically Signed) Final Date: 08 May 2019 17:09 S
[2019-05-08 06:25] LABS: Vitamin B12 150 pg/mL (232-1245)
[2019-05-08 06:35] LABS: Ferritin 94 ng/mL (15-150); Iron 17 ug/dL (37-145); Percent Saturation 9.4 % (20-50); Total Iron Binding Capacity 180 mcg/dl; Unsaturated Iron Binding 163 ug/dL (112-347)
[2019-05-08] MEDS: pantoprazole 40 mg SDV IVP ×2 (07:13→20:38)
[2019-05-08 07:20] LABS: Folate Level 3.9 ng/mL (4.8-37.3)
--- NOTE | 2019-05-08 07:42 | ECG_ITS ---
Measurements Intervals [place] Rate: 84 P: 70 CA: 139 QRS: 19 QRSD: 84 T: 72 QT: 359 QTc: 425 SINUS RHYTHM WITH OCCASIONAL ECTOPIC PREMATURE COMPLEXES Compared to ECG 12/10/2018 16:06:40 No significant changes Electronically Signed On 05-08-2019 22:24:58 MACHINE FANCY STITCHER by Eddie Avery M.D. [email or web address]
[2019-05-08 08:15] LABS: Glucose Point of Care 175 mg/dL (70-110)
[2019-05-08] MEDS: levothyroxine 150 mcg Tablet PO (08:33)
[2019-05-08] MEDS: heparin 5,000 unit/mL INJ 1 mL 5000 UNIT SUBCUT ×2 (08:33→17:33)
[2019-05-08] MEDS: levothyroxine 25 mcg Tablet PO (08:34)
[2019-05-08] MEDS: levofloxacin-dextrose 5 % 750 MG/150 ML PREMIX 150 MG IV (08:34)
[2019-05-08 09:07] LABS: Troponin 5 6HR 33.09 ng/L (0-10)
[2019-05-08 09:09] LABS: Troponin 5 6HR Delta -0.91 ng/L (0-12)
[2019-05-08 09:37] LABS: Erythrocyte Sedimentation Rate 74 mm/hr (0-15)
--- NOTE | 2019-05-08 09:53 | PM.PN ---
Subjective Subjective: Interval history: Chart reviewed, including labs, imaging, [facility] records. Patient seen and examined, family member at bedside, sitting up at the edge of the bed, reports feeling better compared to when she first got to the hospital. Still has shortness of breath with exertion and when trying to lay down. Medications: Reviewed: Yes Medication Review Details: Current Medications Generic Name Dose Route Start Last Admin Trade Name Willamq PRN Reason Stop Dose Admin Albuterol/Ipratrop ium 3 ml 05/08/19 05:56 05/08/19 09:02 Duoneb INHALATION 3 ml Q4H KELLY Administration Furosemide 40 mg 05/08/19 09:00 05/08/19 08:34 Lasix IVP 40 mg Q12H KELLY Administration Heparin Sodium (Be ef Lung) 5,000 unit 05/08/19 08:00 05/08/19 08:33 Heparin SUBCUT 5,000 unit Q8H KELLY Administration Levofloxacin/Dextr ose 750 mg in 150 mls @ 150 mls/hr 05/08/19 09:00 05/08/19 08:34 Levaquin-D5w IV 150 mls/hr Q24H KELLY Administration Protocol Insulin Aspart 0 unit 05/08/19 08:00 05/08/19 08:32 Novolog SUBCUT 2 unit TIDWM KELLY Administration Protocol Levothyroxine Sodi um 150 mcg 05/08/19 09:00 05/08/19 08:33 Synthroid PO 150 mcg DAILY KELLY Administration Levothyroxine Sodi um 25 mcg 05/08/19 09:00 05/08/19 08:34 Synthroid PO 25 mcg DAILY KELLY Administration Pantoprazole Sodiu m 40 mg 05/08/19 07:00 05/08/19 07:13 Protonix IVP 40 mg Q12H KELLY Administration Vitals/I&O/Wt Last Vital Signs Temp 98.3 F 05/08/19 07:51 Pulse 80 05/08/19 09:09 Resp 18 05/08/19 09:04 BP 153/65 05/08/19 07:51 Pulse Ox 97 05/08/19 09:04 05/07/19 05/08/19 05/08/19 22:59 06:59 14:59 Intake Total 250 / 250 240 / 240 Balance 250 / 250 240 / 240 Weight last 48 hrs Weight 97.522 kg Physical Exam Const: COMMON NORMALS: no apparent distress and oriented x3 GENERAL APPEARANCE: cooperative, comfortable and disheveled NUTRITIONAL APPEARANCE: obese morbidly obese ORIENTATION/CONSCIOUSNESS: Yes awake HENMT: COMMON NORMALS: normocephalic, head/scalp atraumatic, hearing grossly normal bilaterally and moist oral mucous membranes HEAD & SCALP: normocephalic and atraumatic Eye: COMMON NORMALS: PERRL, EOMs intact bilaterally and conjunctivae normal CONJUNCTIVA: Yes conjunctivae normal PUPIL: Yes PERRL Neck/C-Spine: COMMON NORMALS: full ROM GENERAL: Yes normal visual inspection and Yes trachea midline Lymph: LYMPHATIC: lymphedema bilateral lower extremity severe Resp: COMMON NORMALS: normal respiratory effort, no retractions, no use of accessory muscles and clear to auscultation bilaterally EFFORT & INSPECTION: Yes able to speak in complete sentences, Yes symmetric chest movement and No tachypneic AUSCULTATION: clear to auscultation bilaterally Cardio: COMMON NORMALS: regular rate, regular rhythm, S1 normal heart sound, S2 normal heart sound and no murmurs RATE: regular rate RHYTHM: regular rhythm HEART SOUNDS: S1 normal and S2 normal GI: COMMON NORMALS: normal to inspection, nondistended, normoactive bowel sounds, soft to palpation and non-tender INSPECTION: Yes central obesity PALPATION: Yes soft Extremity: COMMON NORMALS: normal to inspection and full ROM GENERAL: Yes edema Neuro: COMMON NORMALS: oriented x3, moves all extremities, no focal motor deficits and no sensory deficits noted Psych: COMMON NORMALS: mental status grossly normal, thought process normal, cooperative, affect normal and speech normal SPEECH: Yes normal speech THOUGHT PROCESS: normal thought process Skin: COMMON NORMALS: no rashes or lesions noted, no jaundice, no petechiae and no mottling GENERAL SKIN EXAM: no rashes or lesions noted Data : 05/08/19 12:02 05/08/19 02:05 Micro: Microbiology 05/08/19 02:08 Blood Culture - Preliminary Blood SPECIMEN COLLECTED 05/08/19 02:05 Blood Culture - Preliminary Blood SPECIMEN COLLECTED A&P Assessment and plan (1) Acute respiratory failure with hypoxia: -likely secondary to acute diastolic CHF exacerbation as evidenced by SOB, orthopnea, PND, elevated BNP (1382), evidence of fluid overload on imaging; as well as pneumonia -continue IV diuresis with Lasix -monitor renal function, lytes with diuresis -monitor Is & Os, daily weights -telemetry monitoring -reviewed imaging, showing evidence of small L pleural effusion, possible consolidation within lingula which could be atelectasis with superimposed pneumonia -on abx with Levaquin -no leukocytosis, afebrile -f/u blood cx -lactic acid, pro-calcitonin negative -last Echo on record (2014): EF=62%, G1DD, moderate LVH. Repeat Echo: EF=64%, no RWMA, G1DD, mild MR, trace AR -continue to monitor respiratory status -supplemental oxygen as needed -Neb treatments as needed -noted D-dimer elevation, negative PE, negative DVT Status: Acute Code(s): J96.01 - Acute respiratory failure with hypoxia (2) Macrocytic anemia: -has chronic macrocytic anemia; has evidence of vitamin B12 and folate deficiency -replace vitamin B12, folate -also noted evidence of low iron though ferritin is normal -f/u FOBT; had reported black stools -baseline Hg is around 11; continue to monitor H/H closely -on PPI Status: Acute Code(s): D53.9 - Nutritional anemia, unspecified Additional A&P Information -Morbid obesity: BMI-39 kg/m2 -Hx of thyroid cancer s/p thyroidectomy with acquired hypothyroidism; continue levothyroxine -HTN -GEOVANNI -GERD; on PPI -NIDDM type II; A1c in AM; accuchecks, ISS -has significant bilateral LE lymphedema; ask PT about lymphedema wraps -cardiac diet as tolerated -PT/OT evaluations -GI ppx with PPI -DVT ppx with SCDs; no AC due to bleeding risk -Dispo: home -Code status: FULL code Attestations Medical Necessity Statement*: Patient requires hospitalization for continued IV diuresis, IV antibiotics, monitoring of H/H. Time Spent in Patient Care: Greater than 35 minutes (>than 50% of time spent in counselling and/or direct pt care on unit). 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
[2019-05-08 10:56] LABS: Glucose Point of Care 338 mg/dL (70-110)
[2019-05-08] MEDS: folic acid 1 mg Tablet PO (11:27)
[2019-05-08] MEDS: cyanocobalamin 1,000 mcg Tablet 1000 MCG PO (11:27)
[2019-05-08 12:12] LABS: Hematocrit 29.7 % (37.0-47.0); Hemoglobin 9.7 g/dL (11.5-15.3)
--- NOTE | 2019-05-08 15:00 | PC.CHAP ---
Pastoral Care Encounter/Spiritual Assessment Type of Contact [] Declined building trades instructor visit [] Patient/Family/Request visit [] Outpatient visit [] Follow-up visit [] Physician referral [] Code/Alert [] Routine visit [] Staff referral [] Actively dying [] Patient sleeping [] Family support [] [] Out of room [] Palliative care [] [] Receiving care in room [] Pre-surgical visit [] Trauma [] Long length of stay [] ICU visit [] Other: Relational/Emotional Strength [] Patient feels connected with others/family/visitors/staff [] Distress [] Loneliness/isolation [] Abandonment Spirituality of Patient [x] Person of Jaky [] Attends Cheondoism of their Jaky [] Believes in Prayer [] Reads Bible or Sikh materials [] There are Spiritual issues to be addressed Inventory Worker Interventions [x] Prayer [x] Active listening [x] Non-anxious presence [] Spiritual/emotional support [] Crisis/trauma care [] Spiritual counseling [] Bereavement support [] Provided bereavement packet [] Provided Bible/devotional materials [] Provided toy/stuffed animal, coloring book to patient or family member [] Provided Communion [] Anointing/Elmo [] Salvation [x] Completed spiritual assessment [] Other: Impact on Illness or Injury [] Angry [] Fearful [] Anxious [] Often cries [] Exhaustion [] Unable to work [] Unable to attend adventism [] Unable to walk/stand [] Unable to read [] Unable to drive [] Unable to eat/drink [] Unable to sleep [] Unable to be with family [] Patient intubated [] Other: Summary \feeling better Time spent with patient 10 min
[2019-05-08 16:44] LABS: Glucose Point of Care 179 mg/dL (70-110)
[2019-05-08 18:51] LABS: Hematocrit 26.4 % (37.0-47.0); Hemoglobin 8.5 g/dL (11.5-15.3)
[2019-05-09] VITALS (17 sets, daily range): BP systolic 112–146; BP diastolic 47–69; PULSE 84–112; RESP 17–24; TEMP 36.4–37.1; O2SAT 90–98
[2019-05-09] MEDS: ipratropium-albuterol 3 mL Neb INHALATION ×6 (00:24→20:44)
[2019-05-09 07:23] LABS: Basophils % 0.1 %; Hematocrit 26.3 % (37.0-47.0); Hemoglobin 8.6 g/dL (11.5-15.3); Lymphocytes # 0.2 10^3/uL (0.8-4.8); Lymphocytes % 2.7 %; Mean Corpuscular HGB Conc 32.7 g/dL (30.0-36.0); Mean Corpuscular Volume 100.8 fL (81-99); Mean Platelet Volume 9.7 fL (7.4-10.4); Monocytes # 0.3 10^3/uL (0.2-0.9); Neutrophils # 8.3 10^3/uL (1.8-7.7); Neutrophils % 93.9 %; Nucleated Red Blood Cells % 0 %; Platelet Count 296 10^3/cmm (130-400); Red Blood Count 2.61 10^6/uL (4.1-5.3); Red Cell Distribution Width 19.7 % (12.1-15.1); White Blood Count 8.8 10^3/uL (4.0-10.0)
[2019-05-09 07:34] LABS: INR 1.24 (0.8-1.2)
[2019-05-09 07:43] LABS: Alanine Aminotransferase 6 U/L (0-33); Alkaline Phosphatase 57 IU/L (35-105); Anion Gap 20.3 (5-19); Aspartate Amino Transferase 16 U/L (0-32); Blood Urea Nitrogen 12 mg/dL (8-23); Calcium 7.8 mg/dL (8.5-10.5); Carbon Dioxide 24 mmol/L (22-29); Chloride 97 mmol/L (98-107); Globulin 3.1 g/dL (1.3-4.6); Glucose 121 mg/dL (65-115); Magnesium 1.8 mg/dL (1.7-2.3); Phosphorus 4.2 mg/dL (2.5-4.5); Potassium 3.3 mmol/L (3.5-5.1); Sodium 138 mmol/L (136-145); Total Bilirubin 0.5 mg/dL (0.15-1.2); Total Protein 6.1 g/dL (6.6-8.7)
[2019-05-09 07:45] LABS: Chol HDL Ratio 2.92 mg/dL (0.0-4.40); Cholesterol 140 mg/dL (0-200); HDL Cholesterol 48 mg/dL (60-100); LDL Cholesterol Calculated 66 mg/dL (50-129); LDL HDL Ratio 1.38 RATIO (0.00-3.22); Triglycerides 128 mg/dL (0-150)
[2019-05-09] MEDS: cyanocobalamin 1,000 mcg Tablet 1000 MCG PO (08:04)
[2019-05-09] MEDS: FUROsemide 10 mg/mL SDV 4mL 40 MG IVP ×2 (08:04→20:16)
[2019-05-09] MEDS: levothyroxine 25 mcg Tablet PO (08:04)
[2019-05-09] MEDS: folic acid 1 mg Tablet PO (08:04)
[2019-05-09] MEDS: levothyroxine 150 mcg Tablet PO (08:04)
[2019-05-09] MEDS: heparin 5,000 unit/mL INJ 1 mL 5000 UNIT SUBCUT ×2 (08:04→15:38)
[2019-05-09] MEDS: levofloxacin-dextrose 5 % 750 MG/150 ML PREMIX 150 MG IV (08:05)
[2019-05-09 08:08] LABS: Glucose Point of Care 100 mg/dL (70-110)
[2019-05-09] MEDS: pantoprazole 40 mg SDV IVP ×2 (08:10→20:16)
[2019-05-09 08:48] LABS: Estmated Average Glucose 111; Hemoglobin A1C 5.5 % (4.0-6.0)
--- NOTE | 2019-05-09 10:20 | PM.PN ---
Subjective Subjective: Interval history: Had 650 mL urine output overnight. AM labs noted. Isi Bari. Patient seen and examined, seems to be able to lay supine, currently complaining of some nausea. Feels like she has increased swelling in her left lower extremity today. Medications: Reviewed: Yes Medication Review Details: Current Medications Generic Name Dose Route Start Last Admin Trade Name Freq PRN Reason Stop Dose Admin Albuterol/Ipratrop ium 3 ml 05/08/19 05:56 05/09/19 00:24 Duoneb INHALATION 3 ml Q2H PRN Administration SHORTNESS OF BELINDA TH Albuterol/Ipratrop ium 3 ml 05/09/19 00:00 05/09/19 08:14 Duoneb INHALATION 3 ml Q4H.RESPIRATORY S CH Administration Cyanocobalamin 1,000 mcg 05/08/19 10:00 05/09/19 08:04 Vitamin B-12 PO 1,000 mcg DAILY KELLY Administration Folic Acid 1 mg 05/08/19 10:00 05/09/19 08:04 Folic Acid PO 1 mg DAILY KELLY Administration Furosemide 40 mg 05/08/19 09:00 05/09/19 08:04 Lasix IVP 40 mg Q12H KELLY Administration Heparin Sodium (Be ef Lung) 5,000 unit 05/08/19 08:00 05/09/19 08:04 Heparin SUBCUT 5,000 unit Q8H KELLY Administration Levofloxacin/Dextr ose 750 mg in 150 mls @ 150 mls/hr 05/08/19 09:00 05/09/19 08:05 Levaquin-D5w IV 150 mls/hr Q24H KELLY Administration Protocol Insulin Aspart 0 unit 05/08/19 08:00 05/09/19 08:03 Novolog SUBCUT Not Given TIDWM KELLY Protocol Levothyroxine Sodi um 150 mcg 05/08/19 09:00 05/09/19 08:04 Synthroid PO 150 mcg DAILY KELLY Administration Levothyroxine Sodi um 25 mcg 05/08/19 09:00 05/09/19 08:04 Synthroid PO 25 mcg DAILY KELLY Administration Pantoprazole Sodiu m 40 mg 05/08/19 07:00 05/09/19 08:10 Protonix IVP 40 mg Q12H KELLY Administration Vitals/I&O/Wt Last Vital Signs Temp 98.6 F 05/09/19 07:16 Pulse 85 05/09/19 08:20 Resp 18 05/09/19 08:16 BP 120/67 05/09/19 07:16 Pulse Ox 94 05/09/19 08:16 05/08/19 05/09/19 05/09/19 22:59 06:59 14:59 Intake Total 30 / 660 200 / 860 300 / 300 Output Total 650 / 650 Balance 30 / 660 -450 / 210 300 / 300 Weight last 48 hrs Weight 102.603 kg Weight 97.522 kg Physical Exam Const: COMMON NORMALS: no apparent distress and oriented x3 GENERAL APPEARANCE: cooperative, comfortable and disheveled NUTRITIONAL APPEARANCE: obese morbidly obese ORIENTATION/CONSCIOUSNESS: Yes awake HENMT: COMMON NORMALS: normocephalic, head/scalp atraumatic, hearing grossly normal bilaterally and moist oral mucous membranes HEAD & SCALP: normocephalic and atraumatic Eye: COMMON NORMALS: PERRL, EOMs intact bilaterally and conjunctivae normal CONJUNCTIVA: Yes conjunctivae normal PUPIL: Yes PERRL Neck/C-Spine: COMMON NORMALS: full ROM GENERAL: Yes normal visual inspection and Yes trachea midline Lymph: LYMPHATIC: lymphedema Resp: COMMON NORMALS: normal respiratory effort, no retractions, no use of accessory muscles and clear to auscultation bilaterally EFFORT & INSPECTION: Yes able to speak in complete sentences, Yes symmetric chest movement and No tachypneic AUSCULTATION: clear to auscultation bilaterally Cardio: COMMON NORMALS: regular rate, regular rhythm, S1 normal heart sound, S2 normal heart sound and no murmurs RATE: regular rate RHYTHM: regular rhythm HEART SOUNDS: S1 normal and S2 normal GI: COMMON NORMALS: normal to inspection, nondistended, normoactive bowel sounds, soft to palpation and non-tender INSPECTION: Yes central obesity PALPATION: Yes soft Extremity: COMMON NORMALS: normal to inspection and full ROM GENERAL: Yes edema Neuro: COMMON NORMALS: oriented x3, moves all extremities, no focal motor deficits and no sensory deficits noted Psych: COMMON NORMALS: mental status grossly normal, thought process normal, cooperative, affect normal and speech normal SPEECH: Yes normal speech THOUGHT PROCESS: normal thought process Skin: COMMON NORMALS: no rashes or lesions noted, no jaundice, no petechiae and no mottling GENERAL SKIN EXAM: no rashes or lesions noted Data : 05/09/19 06:59 05/09/19 06:59 Micro: Microbiology 05/08/19 02:08 Blood Culture - Preliminary Blood NEGATIVE TO DATE 05/08/19 02:05 Blood Culture - Preliminary Blood NEGATIVE TO DATE A&P Assessment and plan (1) Acute respiratory failure with hypoxia: -likely secondary to acute diastolic CHF exacerbation as evidenced by SOB, orthopnea, PND, elevated BNP (1382), evidence of fluid overload on imaging; as well as pneumonia -continue IV diuresis with Lasix -continue to monitor renal function, lytes with diuresis -continue to monitor Is & Os, daily weights -telemetry monitoring -reviewed imaging, showing evidence of small L pleural effusion, possible consolidation within lingula which could be atelectasis with superimposed pneumonia -on abx with Levaquin -no leukocytosis, afebrile -blood cx: prelim negative -lactic acid, pro-calcitonin negative -last Echo on record (2014): EF=62%, G1DD, moderate LVH. Repeat Echo: EF=64%, no RWMA, G1DD, mild MR, trace AR -continue to monitor respiratory status -supplemental oxygen as needed -Neb treatments as needed -noted D-dimer elevation, negative PE, negative DVT Status: Acute Code(s): J96.01 - Acute respiratory failure with hypoxia (2) Macrocytic anemia: -has chronic macrocytic anemia; has evidence of vitamin B12 and folate deficiency -replace vitamin B12, folate -also noted evidence of low iron though ferritin is normal -f/u FOBT; had reported black stools -baseline Hg is around 11; continue to monitor H/H closely; has been stable so far -on PPI Status: Acute Code(s): D53.9 - Nutritional anemia, unspecified Additional A&P Information -Morbid obesity: BMI-41 kg/m2 -Hx of thyroid cancer s/p thyroidectomy with acquired hypothyroidism; continue levothyroxine -HTN -GEOVANNI -GERD; on PPI -NIDDM type II; A1c-5.5; accuchecks, ISS -has significant bilateral LE lymphedema; ask PT about lymphedema wraps -cardiac diet as tolerated -PT/OT evaluations -GI ppx with PPI -DVT ppx with SCDs; no AC due to bleeding risk -Dispo: home -Code status: FULL code Attestations Medical Necessity Statement*: Patient requires hospitalization for continued IV diuresis for acutely decompensated CHF. Time Spent in Patient Care: Greater than 35 minutes (>than 50% of time spent in counselling and/or direct pt care on unit). Coding Level of Care Code Acute Registered Clinical Dietitian for Babarg Fwd Exam Problem Focused Diagnoses Acute respiratory failure with hypoxia J96.01 Macrocytic anemia D53.9
--- NOTE | 2019-05-09 10:39 | PC.CHAP ---
Pastoral Care Encounter/Spiritual Assessment Type of Contact [] Declined leather goods i assembler visit [] Patient/Family/Request visit [] Outpatient visit [] Follow-up visit [] Physician referral [] Code/Alert [xx] Routine visit [] Staff referral [] Actively dying [] Patient sleeping [] Family support [] [] Out of room [] Palliative care [] [] Receiving care in room [] Pre-surgical visit [] Trauma [] Long length of stay [] ICU visit [] Other: Relational/Emotional Strength [x] Patient feels connected with others/family/visitors/staff [] Distress [] Loneliness/isolation [] Abandonment Spirituality of Patient [x] Person of Jaky [x] Attends Denominational of their Jaky [x] Believes in Prayer [] Reads Bible or Protestant materials [] There are Spiritual issues to be addressed Inspector Rag Sorting Interventions [x] Prayer [x] Active listening [x] Non-anxious presence [x] Spiritual/emotional support [] Crisis/trauma care [] Spiritual counseling [] Bereavement support [] Provided bereavement packet [] Provided Bible/devotional materials [] Provided toy/stuffed animal, coloring book to patient or family member [] Provided Communion [] Anointing/[place] [] Salvation [x] Completed spiritual assessment [] Other: Impact on Illness or Injury [] Angry [] Fearful [] Anxious [] Often cries [] Exhaustion [] Unable to work [] Unable to attend buddhism [] Unable to walk/stand [] Unable to read [] Unable to drive [] Unable to eat/drink [] Unable to sleep [] Unable to be with family [] Patient intubated [x] Other: older retired lady who has age-related weaknesses Summary Pt stated she has had lots of company yesterday and this AM and is tired. Her b ack hurts and she stays chilled. She wanted prayer but not conversation. Inspector Rag Sorting Ester De La Rosa Time spent with patient 5 minutes
[2019-05-09 11:32] LABS: Glucose Point of Care 248 mg/dL (70-110)
[2019-05-09] MEDS: acetaminophen 325 mg Tablet 650 MG PO ×2 (11:46→19:15)
[2019-05-09 16:18] LABS: Glucose Point of Care 204 mg/dL (70-110)
[2019-05-09 20:39] LABS: Glucose Point of Care 97 mg/dL (70-110)
[2019-05-10] VITALS (26 sets, daily range): BP systolic 89–147; BP diastolic 36–75; PULSE 90–121; RESP 16–32; TEMP 36.9–38.8; O2SAT 90–100
[2019-05-10] MEDS: heparin 5,000 unit/mL INJ 1 mL 5000 UNIT SUBCUT ×3 (00:01→15:38)
[2019-05-10] MEDS: ipratropium-albuterol 3 mL Neb INHALATION ×3 (00:54→20:03)
[2019-05-10 04:19] LABS: Basophils % 0.1 %; Eosinophils % 0.1 %; Hematocrit 40.3 % (37.0-47.0); Hemoglobin 13.2 g/dL (11.5-15.3); Lymphocytes # 0.2 10^3/uL (0.8-4.8); Lymphocytes % 2.4 %; Mean Corpuscular HGB Conc 32.8 g/dL (30.0-36.0); Mean Corpuscular Hemoglobin 33.7 pg (28.0-34.0); Mean Corpuscular Volume 102.8 fL (81-99); Mean Platelet Volume 9.8 fL (7.4-10.4); Monocytes # 0.2 10^3/uL (0.2-0.9); Monocytes % 2.1 %; Neutrophils # 7.8 10^3/uL (1.8-7.7); Neutrophils % 94.9 %; Nucleated Red Blood Cells % 0 %; Platelet Count 169 10^3/cmm (130-400); Red Blood Count 3.92 10^6/uL (4.1-5.3); Red Cell Distribution Width 19.9 % (12.1-15.1); White Blood Count 8.2 10^3/uL (4.0-10.0)
[2019-05-10] MEDS: acetaminophen 325 mg Tablet 650 MG PO ×2 (04:22→13:00)
[2019-05-10 07:09] LABS: Glucose Point of Care 123 mg/dL (70-110)
[2019-05-10] MEDS: FUROsemide 10 mg/mL SDV 4mL 40 MG IVP (08:09)
[2019-05-10] MEDS: pantoprazole 40 mg SDV IVP ×2 (08:09→21:29)
[2019-05-10] MEDS: levothyroxine 25 mcg Tablet PO (08:10)
[2019-05-10] MEDS: levothyroxine 150 mcg Tablet PO (08:10)
[2019-05-10] MEDS: cyanocobalamin 1,000 mcg Tablet 1000 MCG PO (08:10)
[2019-05-10] MEDS: folic acid 1 mg Tablet PO (08:10)
[2019-05-10 10:27] LABS: Alanine Aminotransferase 9 U/L (0-33); Albumin Level 3.3 g/dL (3.5-5.2); Alkaline Phosphatase 56 IU/L (35-105); Anion Gap 20.7 (5-19); Blood Urea Nitrogen 16 mg/dL (8-23); Calcium 7.5 mg/dL (8.5-10.5); Carbon Dioxide 24 mmol/L (22-29); Chloride 98 mmol/L (98-107); Globulin 3.4 g/dL (1.3-4.6); Glucose 117 mg/dL (65-115); Potassium 3.7 mmol/L (3.5-5.1); Sodium 139 mmol/L (136-145); Total Bilirubin 0.4 mg/dL (0.15-1.2); Total Protein 6.7 g/dL (6.6-8.7)
[2019-05-10 10:58] LABS: Aspartate Amino Transferase 28 U/L (0-32)
--- NOTE | 2019-05-10 11:12 | P.PN_ITS ---
Subjective Subjective: Interval history: AM labs noted, had 1050 mL urine output overnight. Worsening renal function so will discontinue Lasix. Patient seen and examined, at bedside, sitting in chair, complains of shortness of breath even while at rest. Lymphedema wraps placed on left. Medications: Reviewed: Yes Medication Review Details: Current Medications Generic Name Dose Route Start Last Admin Trade Name Freq PRN Reason Stop Dose Admin Acetaminophen 650 mg 05/08/19 05:56 05/10/19 04:22 Tylenol PO 650 mg Q6H PRN Administration Mild/Mod Pain Or Temp >/= 101 Albuterol/Ipratrop ium 3 ml 05/09/19 15:00 05/10/19 10:55 Duoneb INHALATION 3 ml Q6H.RESPIRATORY P RN Administration SHORTNESS OF BELINDA TH Cyanocobalamin 1,000 mcg 05/08/19 10:00 05/10/19 08:10 Vitamin B-12 PO 1,000 mcg DAILY KELLY Administration Folic Acid 1 mg 05/08/19 10:00 05/10/19 08:10 Folic Acid PO 1 mg DAILY KELLY Administration Heparin Sodium (Be ef Lung) 5,000 unit 05/08/19 08:00 05/10/19 08:09 Heparin SUBCUT 5,000 unit Q8H KELLY Administration Insulin Aspart 0 unit 05/08/19 08:00 05/10/19 08:09 Novolog SUBCUT Not Given TIDWM [facility] Protocol Levothyroxine Sodi um 150 mcg 05/08/19 09:00 05/10/19 08:10 Synthroid PO 150 mcg DAILY KELLY Administration Levothyroxine Sodi um 25 mcg 05/08/19 09:00 05/10/19 08:10 Synthroid PO 25 mcg DAILY KELLY Administration Pantoprazole Sodiu m 40 mg 05/08/19 07:00 05/10/19 08:09 Protonix IVP 40 mg Q12H KELLY Administration Potassium Chloride 40 meq 05/10/19 09:00 05/10/19 08:10 Potassium Chlori de Oral Liquid PO Not Given DAILY KELLY Vitals/I&O/Wt Last Vital Signs Temp 98.7 F 05/10/19 08:00 Pulse 90 05/10/19 10:50 Resp 18 05/10/19 10:50 BP 123/69 05/10/19 08:00 Pulse Ox 95 05/10/19 10:50 05/09/19 05/10/19 05/10/19 22:59 06:59 14:59 Intake Total 90 / 390 30 / 420 460 / 460 Output Total 700 / 700 850 / 1550 100 / 100 Balance -610 / -310 -820 / -1130 360 / 360 Weight last 48 hrs Weight 99.875 kg Weight 99.926 kg Weight 102.603 kg Physical Exam Const: COMMON NORMALS: no apparent distress and oriented x3 GENERAL APPEARANCE: cooperative, comfortable and appears older than stated age NUTRITIONAL APPEARANCE: obese morbidly obese ORIENTATION/CONSCIOUSNESS: Yes awake HENMT: COMMON NORMALS: normocephalic, head/scalp atraumatic, hearing grossly normal bilaterally and moist oral mucous membranes HEAD & SCALP: normocephalic and atraumatic Eye: COMMON NORMALS: PERRL, EOMs intact bilaterally and conjunctivae normal CONJUNCTIVA: Yes conjunctivae normal PUPIL: Yes PERRL Neck/C-Spine: COMMON NORMALS: full ROM GENERAL: Yes normal visual inspection and Yes trachea midline Lymph: LYMPHATIC: lymphedema Resp: COMMON NORMALS: normal respiratory effort, no retractions, no use of accessory muscles and clear to auscultation bilaterally EFFORT & INSPECTION: Yes able to speak in complete sentences, Yes symmetric chest movement and No tachypneic AUSCULTATION: clear to auscultation bilaterally Cardio: COMMON NORMALS: regular rate, regular rhythm, S1 normal heart sound, S2 normal heart sound and no murmurs RATE: regular rate RHYTHM: regular rhythm HEART SOUNDS: S1 normal and S2 normal GI: COMMON NORMALS: normal to inspection, nondistended, normoactive bowel sounds, soft to palpation and non-tender INSPECTION: Yes central obesity PALPATION: Yes soft Extremity: COMMON NORMALS: normal to inspection and full ROM GENERAL: Yes edema Neuro: COMMON NORMALS: oriented x3, moves all extremities, no focal motor deficits and no sensory deficits noted Psych: COMMON NORMALS: mental status grossly normal, thought process normal, c ooperative, affect normal and speech normal SPEECH: Yes normal speech THOUGHT PROCESS: normal thought process Skin: COMMON NORMALS: no rashes or lesions noted, no jaundice, no petechiae and no mottling GENERAL SKIN EXAM: no rashes or lesions noted Data : 05/10/19 02:45 05/10/19 09:13 A&P Assessment and plan (1) Acute respiratory failure with hypoxia: -likely secondary to acute diastolic CHF exacerbation as evidenced by SOB, orthopnea, PND, elevated BNP (1382), evidence of fluid overload on imaging; as well as pneumonia -hold diuretics due to noted renal impairment today; due to complaints of persistent SOB, will give dose of Bumex -continue to monitor renal function, lytes with diuresis -continue to monitor Is & Os, daily weights -telemetry monitoring -reviewed imaging, showing evidence of small L pleural effusion, possible consolidation within lingula which could be atelectasis with superimposed pneumonia -on abx with Levaquin -no leukocytosis, afebrile -blood cx: prelim negative -lactic acid, pro-calcitonin negative -last Echo on record (2014): EF=62%, G1DD, moderate LVH. Repeat Echo: EF=64%, no RWMA, G1DD, mild MR, trace AR -continue to monitor respiratory status -supplemental oxygen as needed -Neb treatments as needed -noted D-dimer elevation, negative PE, negative DVT Status: Acute Code(s): J96.01 - Acute respiratory failure with hypoxia (2) Macrocytic anemia: -has chronic macrocytic anemia; has evidence of vitamin B12 and folate deficiency -replacing vitamin B12, folate -also noted evidence of low iron though ferritin is normal -f/u FOBT; had reported black stools -baseline Hg is around 11; continue to monitor H/H closely; has been stable so far -on PPI Status: Acute Code(s): D53.9 - Nutritional anemia, unspecified Additional A&P Information -Morbid obesity: BMI-41 kg/m2 -Hx of thyroid cancer s/p thyroidectomy with acquired hypothyroidism; continue levothyroxine -HTN -GEOVANNI -GERD; on PPI -NIDDM type II; A1c-5.5; accuchecks, ISS -has significant bilateral LE lymphedema; lymphedema wraps -DELLA on CKD stage 2; baseline Cr around 0.9; likely due to diuresis. Continue to monitor renal function -cardiac diet as tolerated -PT/OT evaluations appreciated -GI ppx with PPI -DVT ppx with SCDs; no AC due to bleeding risk -Dispo: home -Code status: FULL code Attestations Medical Necessity Statement*: Patient requires hospitalization for continued management of DELLA, needs continued monitoring of renal function. Time Spent in Patient Care: Greater than 35 minutes (>than 50% of time spent in counselling and/or direct pt care on unit) . Coding Level of Care Code Acute Rn Cardiovascular for Idania Allison Exam Problem Focused Diagnoses Acute respiratory failure with hypoxia J96.01 Macrocytic anemia D53.9
[2019-05-10 12:02] LABS: Glucose Point of Care 138 mg/dL (70-110)
--- NOTE | 2019-05-10 15:02 | XR_ITS ---
WS: [id number] Portable AP upright chest, 05/10/2019 Clinical Data: follow up on pleural effusion and pneumonia Comparison: Portable chest, 05/08/2019 Findings: The left lower lobe consolidation has partly cleared. Right lung remains clear. The heart i s at the upper limits of normal. The aortic arch and descending aorta show calcification and tortuosi ty. No pneumothorax is seen. The pulmonary vascularity is not increased. XR/XR chest 1V portable [id number] Impression: 1. Decrease in amount of left lower lobe consolidation. 2. No change in cardiomegaly and atherosclerosis.
[2019-05-10] MEDS: metoprolol tartrate 25 mg Tablet PO (15:38)
[2019-05-10] MEDS: polyethylene glycol 3350 Pkt 17 gm PO (15:38)
[2019-05-10] MEDS: succinylcholine 20 mg/mL SDV 10mL IVP (18:30)
[2019-05-10] MEDS: propofol 1,000 MG/100 ML INJ 30.3 MG IV ×2 (18:50→21:43)
--- NOTE | 2019-05-10 18:54 | XRR_ITS ---
PROCEDURE INFORMATION: Exam: XR Chest, 1 View Exam date and time: 05/10/2019 6:55 PM Age: 74 years old Clinical indication: Other: Post code; Additional info: S/P code TECHNIQUE: Imaging protocol: XR of the chest Views: 1 view. COMPARISON: CR XR chest 1V portable [id number] 05/10/2019 3:50 PM FINDINGS: Tubes, catheters and devices: There is an ET tube with tip below the clavicular heads but above the carmen an orogastric tube with tip off the film. Lungs: There is vascular congestion with cephalization of flow, interstitial edema and ground-glass opacities compatible with CHF. Patchy airspace opacities are also noted in the perihilar lung parenchyma concerning for early airspace edema versus pneumonic infiltrates. Pleural space: Unremarkable. No pleural effusion. No pneumothorax. Heart/Mediastinum: The heart is enlarged. Bones/joints: No acute abnormality. XR/XR chest 1V portable [id number] IMPRESSION: 1. There is an ET tube with tip below the clavicular heads but above the carmen an orogastric tube with tip off the film. 2. There is vascular congestion with cephalization of flow, interstitial edema and ground-glass opacities compatible with CHF. Patchy airspace opacities are also noted in the perihilar lung parenchyma concerning for early airspace edema versus pneumonic infiltrates.
--- NOTE | 2019-05-10 19:05 | PM.MISC ---
Miscellaneous Note Purpose of Documentation: Angie gonsalez called at approximately 1828 due to patient being noted to have decreased responsiveness. I arrived at bedside quickly after the code was called, patient was lying in bed, being bagged by Dr. Parra, noted mottling of face, not verbally responsive, tachycardic on monitor with heart rates in the 120s to 140s; agonal breathing. Unable to get blood pressure with an automatic cuff; on manual cuff blood pressure is 184/102. Patient intubated shortly thereafter by Dr. Simms from the ER. Additional peripheral IV access established. Patient received an 80 mg dose of IV Lasix secondary to suspicion for fluid overload. Patient had a pulse throughout the entire event so no need for chest compressions. Mann catheter placed. Patient then promptly moved to ICU once bed available. NG tube placed, blood pressure remains high, started on sedation with propofol due to noted movement, stat chest x-ray ordered. Also ordered d-dimer, troponin and EKG. Unclear what may have precipitated the event at this time. We will continue Levaquin though changed to IV route, add vancomycin for increased coverage. Per my review of chest x-ray looks like pulmonary vascular congestion and decreased consolidation of the left lower lobe, overall aeration appears to be better than on comparison chest x-ray from 05/08. Patient received etomidate 20 mg and rocuronium pre-intubation. I was present during the entire event including accompanying the patient down to ICU. Patient started on sedation with propofol; vent settings: 100%/450/8; ETT-26 cm Current BP 108/52, HR-110 ABG pending. contacted by nursing staff.
--- NOTE | 2019-05-10 19:37 | ECG_ITS ---
Measurements Intervals [place] Rate: 95 P: 62 ID: [id number] QRS: -23 QRSD: 96 T: 44 QT: 363 QTc: 458 SINUS RHYTHM BORDERLINE LEFT AXIS DEVIATION [QRS AXIS < -20] WARNING: DATA QUALITY MAY AFFECT INTERPRETATION Compared to ECG 05/08/2019 10:10:20 Atrial fibrillation no longer present Electronically Signed On 05-11-2019 20:52:48 ELECTRIC KNIFE OPERATOR by Yulissa Colon M.D. [email or web address]
[2019-05-10] MEDS: bumetanide 0.25 mg/mL SDV 10 mL 1 MG IV (20:13)
--- NOTE | 2019-05-10 20:19 | PC.NURSE ---
Patient was found non responsive and blue in color by aid and the Code Blue button was pressed. A Code blue was called overhead and a code team responded comprising of house cleaner supervisor, ER doctor , respitory therapist, ER nurse, ICU nurse and attending physician, DR. Goodman as well as Dr. Parra. Patient was found to have a pulse but not breathing. Ventilation with the ambu bag was initiated. ER doctor intubated and patient was transferred to ICU bed 9. Report was called to ICU nurse JOSEFINA. was notified and stated he was on the way.
[2019-05-10 20:59] LABS: Troponin T (5th) Once 286 ng/mL (0-10)
[2019-05-10 21:15] LABS: Glucose Point of Care 146 mg/dL (70-110)
[2019-05-10 21:18] LABS: Glucose Point of Care 144 mg/dL (70-110)
[2019-05-10 21:33] LABS: D Dimer 3.99 ug/mIFEU (0-0.59)
--- NOTE | 2019-05-10 22:38 | P.EN_ITS ---
Event Note Event Note: limited in ability to evaluate. Troponin is elevated. Given the events not surprising. Review of EKG from earlier did not show ST segment elevation though there were some nonspecific changes. I will go on and switch her over to a heparin drip from the subcutaneous heparin that she has been rec eiving. Current hemoglobin and platelet count are stable. PE is within the differential though she had a CTA of her chest on May 08 that did not show any evidence of PE. Will go on and treat as an NSTEMI and order aspirin, statin, lipid panel in the morning and Plavix. She is already on beta-blockade per current medication list. Echocardiogram was done a couple of days ago. Ejection fraction was 64% with no regional wall motion abnormalities identified.
[2019-05-10] MEDS: clopidogrel 300 mg Tablet PO (23:16)
[2019-05-10] MEDS: atorvastatin 40 mg Tablet 20 MG PO (23:16)
[2019-05-10] MEDS: heparin 5,000 unit/mL INJ 1 mL IV (23:16)
[2019-05-10] MEDS: aspirin 325 mg Tablet PO (23:16)
[2019-05-10] MEDS: heparin drip 25,000 UNIT/500 ML PREMIX 29 UNIT IV (23:17)
[2019-05-11] VITALS (31 sets, daily range): BP systolic 89–113; BP diastolic 43–75; PULSE 82–105; RESP 16–29; TEMP 37.1–37.3; O2SAT 84–100
--- NOTE | 2019-05-11 00:21 | ECG_ITS ---
Measurements Intervals [place] Rate: 81 P: 84 AK: 143 QRS: 19 QRSD: 86 T: 48 QT: 421 QTc: 490 SINUS RHYTHM WITH FREQUENT SUPRAVENTRICULAR PREMATURE COMPLEXES MODERATE ST DEPRESSION [0.05+ mV ST DEPRESSION] Compared to ECG 05/08/2019 10:10:20 ST (T wave) deviation now present Atrial fibrillation no longer present Electronically Signed On 05-11-2019 20:58:04 BUSINESS OBJECTS CONSULTANT by Yulissa Colon M.D. [email or web address]
[2019-05-11 01:21] LABS: Troponin(5th) Baseline 1007 ng/mL (0-10)
[2019-05-11] MEDS: propofol 1,000 MG/100 ML INJ 21.2 MG IV ×3 (02:06→23:35)
[2019-05-11] MEDS: ipratropium-albuterol 3 mL Neb INHALATION ×4 (02:45→20:07)
--- NOTE | 2019-05-11 04:21 | ECG_ITS ---
Measurements Intervals [place] Rate: 93 P: 88 DC: 128 QRS: -15 QRSD: 94 T: 39 QT: 386 QTc: 482 SINUS RHYTHM WITH FREQUENT SUPRAVENTRICULAR PREMATURE COMPLEXES ABNORMAL RHYTHM ECG Compared to ECG 05/08/2019 10:10:20 Atrial fibrillation no longer present Electronically Signed On 05-11-2019 20:57:33 INSTALLER HELPER by Yulissa Colon M.D. [id number]
[2019-05-11 05:51] LABS: ABG PCO2 41.6 mmHg (35-45); ABG PH Result 7.42 (7.35-7.45); Arterial Blood Gas Hematocrit 26.5 % (37-47); Base Excess ABG 2.3 mmol/L (-2.0-2.0); Blood Gas Sample Site Brachial, left; Blood Gas Sample Type Arterial; Blood Gas Tidal Volume 0.45; Oxygen Device VENT; PO2 ABG 88.2 mmHg (80.0-100.0)
[2019-05-11 06:43] LABS: Basophils % 0.2 %; Eosinophils % 0.6 %; Hematocrit 27.4 % (37.0-47.0); Hemoglobin 8.6 g/dL (11.5-15.3); Lymphocytes # 0.3 10^3/uL (0.8-4.8); Lymphocytes % 4.5 %; Mean Corpuscular HGB Conc 31.4 g/dL (30.0-36.0); Mean Corpuscular Hemoglobin 33.5 pg (28.0-34.0); Mean Corpuscular Volume 106.6 fL (81-99); Mean Platelet Volume 9.8 fL (7.4-10.4); Monocytes # 0.1 10^3/uL (0.2-0.9); Monocytes % 2.2 %; Neutrophils # 5.9 10^3/uL (1.8-7.7); Neutrophils % 92.2 %; Nucleated Red Blood Cells % 0 %; Platelet Count 229 10^3/cmm (130-400); Red Blood Count 2.57 10^6/uL (4.1-5.3); Red Cell Distribution Width 19.8 % (12.1-15.1); White Blood Count 6.4 10^3/uL (4.0-10.0)
[2019-05-11 06:55] LABS: Alanine Aminotransferase 9 U/L (0-33); Albumin Level 2.7 g/dL (3.5-5.2); Alkaline Phosphatase 57 IU/L (35-105); Anion Gap 20.3 (5-19); Aspartate Amino Transferase 35 U/L (0-32); Blood Urea Nitrogen 20 mg/dL (8-23); Carbon Dioxide 23 mmol/L (22-29); Chloride 96 mmol/L (98-107); Globulin 3.1 g/dL (1.3-4.6); Glucose 99 mg/dL (65-115); Potassium 3.3 mmol/L (3.5-5.1); Sodium 136 mmol/L (136-145); Total Bilirubin 0.4 mg/dL (0.15-1.2); Total Protein 5.8 g/dL (6.6-8.7)
[2019-05-11 06:57] LABS: Chol HDL Ratio 2.21 mg/dL (0.0-4.40); Cholesterol 104 mg/dL (0-200); HDL Cholesterol 47 mg/dL (60-100); LDL Cholesterol Calculated 35 mg/dL (50-129); LDL HDL Ratio 0.74 RATIO (0.00-3.22); Triglycerides 109 mg/dL (0-150)
[2019-05-11 07:00] LABS: Troponin 5 6HR 730.5 ng/L (0-10)
--- NOTE | 2019-05-11 07:27 | PC.NURSE ---
gross abd. breathing. responds to command to squeeze my fingers
[2019-05-11 07:30] LABS: Partial Thromboplastin Time > 250.0 SECONDS (23.9-36.7)
[2019-05-11] MEDS: pantoprazole 40 mg SDV IVP ×2 (07:48→19:37)
--- NOTE | 2019-05-11 08:15 | PC.NURSE ---
dr. denise high
[2019-05-11] MEDS: levothyroxine 25 mcg Tablet PO (09:11)
[2019-05-11] MEDS: folic acid 1 mg Tablet PO (09:11)
[2019-05-11] MEDS: levothyroxine 150 mcg Tablet PO (09:11)
[2019-05-11] MEDS: clopidogrel 75 mg Tablet PO (09:11)
[2019-05-11] MEDS: potassium chloride oral liq 20 mEq/15 mL UDC 40 MEQ PO (09:11)
[2019-05-11] MEDS: polyethylene glycol 3350 Pkt 17 gm PO (09:12)
[2019-05-11] MEDS: sennosides-docusate Tablet 2 TAB PO ×2 (09:12→17:12)
[2019-05-11] MEDS: levofloxacin-dextrose 5 % 750 MG/150 ML PREMIX 150 MG IV (09:13)
--- NOTE | 2019-05-11 09:19 | PC.CHAP ---
Pastoral Care Encounter/Spiritual Assessment Type of Contact [] Declined x ray consultant visit [] Patient/Family/Request visit [] Outpatient visit [] Follow-up visit [] Physician referral [] Code/Alert [x] Routine visit [] Staff referral [] Actively dying [x] Patient sleeping [] Family support [] [] Out of room [] Palliative care [] [] Receiving care in room [] Pre-surgical visit [] Trauma [] Long length of stay [x] ICU visit [] Other: Relational/Emotional Strength [] Patient feels connected with others/family/visitors/staff [] Distress [] Loneliness/isolation [] Abandonment Spirituality of Patient [] Person of Jaky [] Attends Mosque of their Jaky [] Believes in Prayer [] Reads Bible or Faith materials [] There are Spiritual issues to be addressed Cash Office Worker Interventions [] Prayer [] Active listening [] Non-anxious presence [] Spiritual/emotional support [] Crisis/trauma care [] Spiritual counseling [] Bereavement support [] Provided bereavement packet [] Provided Bible/devotional materials [] Provided toy/stuffed animal, coloring book to patient or family member [] Provided Communion [] Anointing/[place] [] Salvation [x] Completed spiritual assessment [] Other: Impact on Illness or Injury [] Angry [] Fearful [] Anxious [] Often cries [] Exhaustion [] Unable to work [] Unable to attend baptist [] Unable to walk/stand [] Unable to read [] Unable to drive [] Unable to eat/drink [] Unable to sleep [] Unable to be with family [] Patient intubated [] Other: Summary patient resting. Patient on ventilator. Time spent with patient
--- NOTE | 2019-05-11 09:42 | PC.OT ---
OT NOTE: OT TREATMENT HELD DUE TO INTUBATION AND SEDATION
[2019-05-11] MEDS: propofol 1,000 MG/100 ML INJ 30.3 MG IV ×4 (10:39→19:35)
[2019-05-11] MEDS: aspirin 325 mg Tablet PO (10:42)
[2019-05-11] MEDS: cyanocobalamin 1,000 mcg Tablet 1000 MCG PO (10:43)
--- NOTE | 2019-05-11 10:54 | PC.NURSE ---
resting quietly. abd. breathing not as exaggerated as she was.
--- NOTE | 2019-05-11 11:30 | PM.PN ---
Subjective Subjective: Interval history: Follow-up labs sent during code indicate significantly elevated troponin with a delta over 90, no acute ischemic changes noted on EKG. started on medical treatment with heparin drip, full dose aspirin, statin and Plavix. Noted ABG, FiO2 down to 40%. My initial evaluation earlier this morning patient noted to have abdominal breathing with respiratory rates in the 30s to 40s. Requested increase in sedation. Due to noted to be over 250 so heparin drip on hold until repeat this afternoon. Febrile with a temp of 101.8 yesterday, currently afebrile. Had urine output of 600 mL. Noted continued renal impairment likely due to diuretics given during code. Poor peripheral IV access requested PICC line placement. Patient's blood pressure trending down with increase in sedation but she still somewhat restless and abdominal breathing continues so we will need to increase this with addition of Precedex. Anticipate need for pressor support for maintenance of map above 65. Medications: Reviewed: Yes Medication Review Details: Current Medications Generic Name Dose Route Start Last Admin Trade Name Freq PRN Reason Stop Dose Admin Acetaminophen 650 mg 05/08/19 05:56 05/10/19 13:00 Tylenol PO 650 mg Q6H PRN Administration Mild/Mod Pain Or Temp >/= 101 Albuterol/Ipratrop ium 3 ml 05/09/19 15:00 05/11/19 14:07 Duoneb INHALATION 3 ml Q6H.RESPIRATORY P RN Administration SHORTNESS OF BELINDA TH Aspirin 325 mg 05/10/19 22:40 05/11/19 10:42 Aspirin PO 325 mg DAILY KELLY Administration Atorvastatin Calci um 20 mg 05/10/19 22:40 05/10/19 23:16 Lipitor PO 20 mg BEDTIME KELLY Administration Clopidogrel Bisulf ate 75 mg 05/11/19 09:00 05/11/19 09:11 Plavix PO 75 mg DAILY KELLY Administration Cyanocobalamin 1,000 mcg 05/08/19 10:00 05/11/19 10:43 Vitamin B-12 PO 1,000 mcg DAILY KELLY Administration Folic Acid 1 mg 05/08/19 10:00 05/11/19 09:11 Folic Acid PO 1 mg DAILY KELLY Administration Heparin Sodium (Be ef Lung) 0 unit 05/10/19 22:35 05/10/19 23:16 Heparin IV 5,300 unit PRN PRN Administration Heparin weight-ba se protocol Protocol Levofloxacin/Dextr ose 750 mg in 150 mls @ 150 mls/hr 05/11/19 09:00 05/11/19 09:13 Levaquin-D5w IV 150 mls/hr Q48H KELLY Administration Protocol Propofol 1,000 mg in 100 m ls @ 0 mls/hr 05/10/19 19:37 05/11/19 16:42 Diprivan IV 50 mcg/kg/min .Q0M KELLY 30.3 mls/hr Administration Protocol Per Protocol Vancomycin HCl 1,5 00 mg/ 250 mls @ 166.667 mls/hr 05/10/19 22:00 05/10/19 22:10 Sodium Chloride IV 166.7 mls/hr Q24H KELLY Administration Heparin Sodium/Sod ium Chloride 25,000 unit in 50 0 mls @ 0 mls/hr 05/10/19 22:45 05/11/19 16:37 Heparin Drip IV 9.89 unit/kg/hr .Q0M KELLY 20 mls/hr Titration Protocol Per Protocol Dexmedetomidine HC l 400 mcg/ 104 mls @ 0 mls/h r 05/11/19 16:15 05/11/19 16:26 Sodium Chloride IV 0.2 mcg/kg/hr .Q0M KELLY 5.3 mls/hr Administration Protocol Per Protocol Insulin Aspart 0 unit 05/08/19 08:00 05/11/19 18:09 Novolog SUBCUT Not Given TIDWM KELLY Protocol Levothyroxine Sodi um 150 mcg 05/08/19 09:00 05/11/19 09:11 Synthroid PO 150 mcg DAILY KELLY Administration Levothyroxine Sodi um 25 mcg 05/08/19 09:00 05/11/19 09:11 Synthroid PO 25 mcg DAILY KELLY Administration Metoprolol Tartrat e 25 mg 05/10/19 14:45 05/11/19 14:12 Lopressor PO Not Given BID KELLY Pantoprazole Sodiu m 40 mg 05/08/19 07:00 05/11/19 07:48 Protonix IVP 40 mg Q12H KELLY Administration Polyethylene Glyco l 17 gm 05/10/19 15:05 05/11/19 09:12 Miralax PO 17 gm DAILY KELLY Administration Potassium Chloride 40 meq 05/10/19 09:00 05/11/19 09:11 Potassium Chlori de Oral Liquid PO 40 meq DAILY KELLY Administration Senna/Docusate Sod ium 2 tab 05/10/19 18:00 05/11/19 17:12 Senna-S PO 2 tab BID KELLY Administration Vitals/I&O/Wt Last Vital Signs Temp 99.2 F 05/11/19 06:00 Pulse 94 05/11/19 07:53 Resp 19 H 05/11/19 10:20 BP 101/75 05/11/19 06:00 Pulse Ox 96 05/11/19 07:53 05/10/19 05/11/19 05/11/19 22:59 06:59 14:59 Intake Total 87.870 / 787.870 193.128 / 980.998 338.283 / 338.283 Output Total 600 / 700 Balance 87.870 / 687.870 -406.872 / 280.998 338.283 / 338.283 Weight last 48 hrs Weight 101.106 kg Weight 99.875 kg Physical Exam Const: COMMON NORMALS: no apparent distress GENERAL APPEARANCE: appears older than stated age NUTRITIONAL APPEARANCE: obese morbidly obese OTHER: -Sedated but awakens easily to verbal and tactile stimulation HENMT: COMMON NORMALS: normocephalic and head/scalp atraumatic HEAD & SCALP: normocephalic and atraumatic OTHER: -Orally intubated Eye: COMMON NORMALS: PERRL, EOMs intact bilaterally and conjunctivae normal CONJUNCTIVA: Yes conjunctivae normal PUPIL: Yes PERRL Neck/C-Spine: COMMON NORMALS: full ROM GENERAL: Yes normal visual inspection and Yes trachea midline Lymph: LYMPHATIC: lymphedema Resp: OTHER: -Abdominal breathing with tachypnea; intubated (40%/450/8) and breathing over vent. Coarse breath sounds bilaterally though improved air entry today; ETT-26 cm at lip Cardio: COMMON NORMALS: regular rate, regular rhythm, S1 normal heart sound, S2 normal heart sound and no murmurs RATE: regular rate RHYTHM: regular rhythm HEART SOUNDS: S1 normal and S2 normal GI: COMMON NORMALS: normal to inspection, nondistended, normoactive bowel sounds, soft to palpation and non-tender INSPECTION: Yes central obesity PALPATION: Yes soft : BLADDER/KIDNEY EXAM: Yes catheter in place Catheter type (Female): urethral Extremity: COMMON NORMALS: normal to inspection and full ROM GENERAL: Yes edema Neuro: OTHER: sedated Psych: COMMON NORMALS: mental status grossly normal, thought process normal, cooperative, affect normal and speech normal SPEECH: Yes normal speech THOUGHT PROCESS: normal thought process Skin: COMMON NORMALS: no rashes or lesions noted, no jaundice, no petechiae and no mottling GENERAL SKIN EXAM: no rashes or lesions noted Urinary Catheter Management^: Mann: Cath Placed During This Visit: yes Urethral Indwelling: Yes Reason for Continuing Indwelling Catheter: Accurate Measurement of Urinary Output in Critically Ill Patients Urinary Catheter Date of Insertion: 05/10/19 Urinary Catheter Time of Insertion: 18:00 Data : 05/11/19 06:30 05/11/19 06:30 Micro: Microbiology 05/10/19 21:10 Gram Stain - Final Sputum - Expectorated Sputum A&P Assessment and plan (1) NSTEMI (non-ST elevated myocardial infarction): -Noted to have significantly elevated troponins with a delta over 90 which may have precipitated code from yesterday -Given current need for continued ventilator support will continue medical management, was already started on a heparin drip, statin, full dose aspirin and Plavix -No acute ischemic changes noted on EKG -Echo done previously as noted below with no noted regional wall motion abnormalities -Continue telemetry monitoring -Will need cardiology evaluation Status: Acute Code(s): I21.4 - Non-ST elevation (NSTEMI) myocardial infarction (2) Acute respiratory failure with hypoxia: -Required intubation following CODE BLUE yesterday, remains on vent support. Not ready for weaning trial today -ABG appropriate; daily ABGs while on vent -Continue sedation, currently on propofol, requested increase in rate this morning due to noted tachypnea and abdominal breathing -Hold off on diuresis given noted continued renal impairment -Has Mann catheter in place, continue to monitor urine output -Continue antibiotic treatment with vancomycin and Levaquin; has noted allergy to Zosyn -Imaging consistent with fluid overload; repeat chest x-ray in a.m. -Echo: EF=64%, no RWMA, G1DD, mild MR, trace AR -febrile with Tmax-101.8 F yesterday; currently afebrile -Vital signs otherwise stable -continue to monitor renal function, lytes with diuresis -continue to monitor Is & Os, daily weights -telemetry monitoring -f/u sputum cx; gram stain negative, noted WBCs -blood cx: prelim negative -continue to monitor respiratory status closely -supplemental oxygen as needed -Neb treatments as needed -noted D-dimer elevation, negative PE, negative DVT Status: Acute Code(s): J96.01 - Acute respiratory failure with hypoxia (3) Macrocytic anemia: -has chronic macrocytic anemia; has evidence of vitamin B12 and folate deficiency -replacing vitamin B12, folate -also noted evidence of low iron though ferritin is normal -f/u FOBT; had reported black stools -baseline Hg is around 11; continue to monitor H/H closely; has been stable so far -on PPI Status: Acute Code(s): D53.9 - Nutritional anemia, unspecified Additional A&P Information -Morbid obesity: BMI-41 kg/m2 -Hx of thyroid cancer s/p thyroidectomy with acquired hypothyroidism; continue levothyroxine -HTN -GEOVANNI -GERD; on PPI -NIDDM type II; A1c-5.5; accuchecks, ISS -has significant bilateral LE lymphedema; lymphedema wraps -DELLA on CKD stage 2; baseline Cr around 0.9; likely due to diuresis. Continue to monitor renal function -cardiac diet as tolerated -PT/OT evaluations appreciated -GI ppx with PPI -DVT ppx with SCDs; no AC due to bleeding risk -Dispo: home -Code status: FULL code -continue ICU care due to vent support Attestations Medical Necessity Statement*: Patient requires hospitalization for continued management of acute hypoxic respiratory failure, on vent support, management of NSTEMI. Time Spent in Patient Care: Greater than 35 minutes (>than 50% of time spent in counselling and/or direct pt care on unit). Critical Care Time: The high probability of a clinically significant, sudden or life threatening deterioration of the patient's [cardiovascular, respiratory] system(s) required my full and direct attention, intervention and personal management. The critical care time is as shown. This time is in addition to time spent performing any reported procedures but includes the following: [x] Data and vital sign review and interpretation [x] Patient assessment, examination and intervention [x] Documentation [x] Medication orders and management Critical Care Time (min): 30 Coding Level of Care Code Acute Renal Dialysis Technician for Chg Fwd Exam Problem Focused Diagnoses NSTEMI (non-ST elevated myocardial infarction) I21.4 Acute respiratory failure with hypoxia J96.01 Macrocytic anemia D53.9
--- NOTE | 2019-05-11 15:28 | XR_ITS ---
WS: [id number] PORTABLE CHEST HISTORY: picc placement COMPARISON: 05/10/2019 Right-sided PICC line terminates in the mid SVC. Hyperexpanded lungs. Multifocal consolidations throughout the LEFT lung. Consistent with pneumonia. P atient is intubated. Nasogastric tube in good position. Cardiac size: Normal. Mediastinum/Aorta: Normal mediastinum. No osseous abnormality seen. XR/XR chest 1V portable [id number] IMPRESSION: 1. RIGHT PICC line terminates in the mid SVC in good position. 2. Nasogastric and endotracheal tubes in good position. 3. Multifocal LEFT lung pneumonia.
--- NOTE | 2019-05-11 16:04 | PC.NURSE ---
picc line inserted by michael. deep abd. breathing started. notified. will start precedex.
--- NOTE | 2019-05-11 17:21 | PC.PT ---
PT note; patient coded last evening, now intubated and sedated, PT on hold awaiting improvements, will follow
[2019-05-11 17:29] LABS: ABG PCO2 37.4 mmHg (35-45); ABG PH Result 7.44 (7.35-7.45); Arterial Blood Gas Hematocrit 26.5 % (37-47); Base Excess ABG 1.5 mmol/L (-2.0-2.0); Blood Gas Allen Test Pos; Blood Gas Sample Site Radial, right; Blood Gas Sample Type Arterial; Blood Gas Tidal Volume 0.45; HCO3 ABG 25.7 mmol/L (22-26); Oxygen Device VENT; PO2 ABG 71.2 mmHg (80.0-100.0)
[2019-05-11 18:19] LABS: Glucose Point of Care 64 mg/dL (70-110)
[2019-05-11 18:19] LABS: Glucose Point of Care 82 mg/dL (70-110)
[2019-05-11 18:19] LABS: Glucose Point of Care 80 mg/dL (70-110)
[2019-05-11 18:19] LABS: Glucose Point of Care 84 mg/dL (70-110)
[2019-05-11 18:19] LABS: Glucose Point of Care 119 mg/dL (70-110)
[2019-05-11] MEDS: atorvastatin 40 mg Tablet 20 MG PO (19:38)
[2019-05-11 23:08] LABS: Partial Thromboplastin Time 101.3 SECONDS (23.9-36.7)
[2019-05-12] VITALS (36 sets, daily range): BP systolic 83–125; BP diastolic 41–71; PULSE 70–96; RESP 14–22; TEMP 36.7–38; O2SAT 93–98
[2019-05-12] MEDS: ipratropium-albuterol 3 mL Neb INHALATION ×4 (02:11→20:11)
[2019-05-12] MEDS: propofol 1,000 MG/100 ML INJ 21.2 MG IV (03:53)
[2019-05-12 04:43] LABS: Eosinophils % 0.3 %; Hematocrit 24.1 % (37.0-47.0); Hemoglobin 7.4 g/dL (11.5-15.3); Lymphocytes # 0.2 10^3/uL (0.8-4.8); Lymphocytes % 6.2 %; Mean Corpuscular HGB Conc 30.7 g/dL (30.0-36.0); Mean Corpuscular Hemoglobin 32.7 pg (28.0-34.0); Mean Corpuscular Volume 106.6 fL (81-99); Monocytes # 0.1 10^3/uL (0.2-0.9); Monocytes % 2.9 %; Neutrophils # 3.4 10^3/uL (1.8-7.7); Neutrophils % 89.8 %; Nucleated Red Blood Cells % 0 %; Platelet Count 222 10^3/cmm (130-400); Red Blood Count 2.26 10^6/uL (4.1-5.3); White Blood Count 3.7 10^3/uL (4.0-10.0)
[2019-05-12 04:59] LABS: Anion Gap 20.4 (5-19); Blood Urea Nitrogen 29 mg/dL (8-23); Calcium 6.6 mg/dL (8.5-10.5); Carbon Dioxide 21 mmol/L (22-29); Chloride 95 mmol/L (98-107); Glucose 123 mg/dL (65-115); Osmolality Calculated 274 mOsm/kg (285-295); Potassium 3.4 mmol/L (3.5-5.1); Sodium 133 mmol/L (136-145)
[2019-05-12 05:35] LABS: ABG PCO2 39.3 mmHg (35-45); ABG PH Result 7.42 (7.35-7.45); Arterial Blood Gas Hematocrit 25.9 % (37-47); Base Excess ABG 1.1 mmol/L (-2.0-2.0); Blood Gas Allen Test Pos; Blood Gas Sample Site Radial, right; Blood Gas Sample Type Arterial; Blood Gas Tidal Volume 0.45; HCO3 ABG 25.6 mmol/L (22-26); Oxygen Device VENT; PO2 ABG 74.7 mmHg (80.0-100.0)
--- NOTE | 2019-05-12 06:00 | XRR_ITS ---
PROCEDURE INFORMATION: Exam: XR Chest, 1 View Exam date and time: 05/12/2019 5:11 AM Age: 74 years old Clinical indication: Shortness of breath; Additional info: Patient on vent support, SOB, cough TECHNIQUE: Imaging protocol: XR of the chest Views: Frontal portable supine view of the chest. COMPARISON: CR XR chest 1V portable [id number] 05/11/2019 3:27 PM FINDINGS: Tubes, catheters and devices: The RIGHT upper extremity PICC line tip is in the mid SVC. The endotracheal tube tip is approximately 3.5 cm above the carmen. The feeding tube enters the stomach with the tip off the limits of the image. EKG leads are present overlying the chest. Lungs: Left-sided pulmonary infiltrates, stable. Mild RIGHT lateral basilar subsegmental atelectasis. The pulmonary vasculature is slightly more congested and ill-defined. Pleural space: No definite pleural effusion. No pneumothorax. Heart/Mediastinum: Stable borderline cardiomegaly. Mediastinum: Stable. Bones/joints: Stable. XR/XR chest 1V portable [id number] IMPRESSION: 1. Left-sided pulmonary infiltrates, stable. 2. Mild RIGHT lateral basilar subsegmental atelectasis. 3. Slightly increased pulmonary vascular congestion.
[2019-05-12 07:19] LABS: Partial Thromboplastin Time 71.8 SECONDS (23.9-36.7)
[2019-05-12] MEDS: propofol 1,000 MG/100 ML INJ 24.3 MG IV ×2 (08:55→13:24)
[2019-05-12] MEDS: heparin drip 25,000 UNIT/500 ML PREMIX 14 UNIT IV (08:57)
[2019-05-12] MEDS: sennosides-docusate Tablet 2 TAB PO ×2 (08:59→21:03)
[2019-05-12] MEDS: levothyroxine 25 mcg Tablet PO (08:59)
[2019-05-12] MEDS: potassium chloride oral liq 20 mEq/15 mL UDC 40 MEQ PO (08:59)
[2019-05-12] MEDS: pantoprazole 40 mg SDV IVP ×2 (08:59→21:03)
[2019-05-12] MEDS: polyethylene glycol 3350 Pkt 17 gm PO (08:59)
[2019-05-12] MEDS: levothyroxine 150 mcg Tablet PO (09:00)
[2019-05-12] MEDS: folic acid 1 mg Tablet PO (09:00)
[2019-05-12] MEDS: clopidogrel 75 mg Tablet PO (09:00)
[2019-05-12] MEDS: aspirin 325 mg Tablet PO (09:00)
[2019-05-12] MEDS: cyanocobalamin 1,000 mcg Tablet 1000 MCG PO (09:07)
--- NOTE | 2019-05-12 10:08 | PM.PN ---
Subjective Subjective: Interval history: AM labs noted, remains on vent support, noted low grade temp of 100.4 F this AM. Had 300 mL urine output overnight. Noted continued renal impairment and worsening anemia. Will repeat H/H this afternoon to determine if need for transfusion. Urine output has been mediocre though she does look a little less edematous in her bilateral lower extremities particularly on the right. Has been tolerating tube feeds appropriately, currently requiring dual sedation with Precedex and propofol. Blood pressure has continued to be low normal, MAP is down to 53 so we will start on pressor support. Medications: Reviewed: Yes Medication Review Details: Current Medications Generic Name Dose Route Start Last Admin Trade Name Freq PRN Reason Stop Dose Admin Acetaminophen 650 mg 05/08/19 05:56 05/10/19 13:00 Tylenol PO 650 mg Q6H PRN Administration Mild/Mod Pain Or Temp >/= 101 Albuterol/Ipratrop ium 3 ml 05/09/19 15:00 05/12/19 07:47 Duoneb INHALATION 3 ml Q6H.RESPIRATORY P RN Administration SHORTNESS OF BELINDA TH Aspirin 325 mg 05/10/19 22:40 05/12/19 09:00 Aspirin PO 325 mg DAILY KELLY Administration Atorvastatin Calci um 20 mg 05/10/19 22:40 05/11/19 19:38 Lipitor PO 20 mg BEDTIME KELLY Administration Clopidogrel Bisulf ate 75 mg 05/11/19 09:00 05/12/19 09:00 Plavix PO 75 mg DAILY KELLY Administration Cyanocobalamin 1,000 mcg 05/08/19 10:00 05/12/19 09:07 Vitamin B-12 PO 1,000 mcg DAILY KELLY Administration Folic Acid 1 mg 05/08/19 10:00 05/12/19 09:00 Folic Acid PO 1 mg DAILY KELLY Administration Heparin Sodium (Be ef Lung) 0 unit 05/10/19 22:35 05/10/19 23:16 Heparin IV 5,300 unit PRN PRN Administration Heparin weight-ba se protocol Protocol Levofloxacin/Dextr ose 750 mg in 150 mls @ 150 mls/hr 05/11/19 09:00 05/11/19 18:10 Levaquin-D5w IV Infused Q48H KELLY Infusion Protocol Propofol 1,000 mg in 100 m ls @ 0 mls/hr 05/10/19 19:37 05/12/19 08:55 Diprivan IV 40 mcg/kg/min .Q0M KELLY 24.3 mls/hr Administration Protocol Per Protocol Vancomycin HCl 1,5 00 mg/ 250 mls @ 166.667 mls/hr 05/10/19 22:00 05/12/19 00:36 Sodium Chloride IV Infused Q24H KELLY Infusion Heparin Sodium/Sod ium Chloride 25,000 unit in 50 0 mls @ 0 mls/hr 05/10/19 22:45 05/12/19 08:57 Heparin Drip IV 6.92 unit/kg/hr .Q0M KELLY 14 mls/hr Administration Protocol Per Protocol Dexmedetomidine HC l 400 mcg/ 104 mls @ 0 mls/h r 05/11/19 16:15 05/12/19 06:20 Sodium Chloride IV 0.3 mcg/kg/hr .Q0M KELLY 7.9 mls/hr Administration Protocol Per Protocol Insulin Aspart 0 unit 05/08/19 08:00 05/12/19 07:26 Novolog SUBCUT Not Given TIDWM KELLY Protocol Levothyroxine Sodi um 150 mcg 05/08/19 09:00 05/12/19 09:00 Synthroid PO 150 mcg DAILY KELLY Administration Levothyroxine Sodi um 25 mcg 05/08/19 09:00 05/12/19 08:59 Synthroid PO 25 mcg DAILY KELLY Administration Metoprolol Tartrat e 25 mg 05/10/19 14:45 05/11/19 19:02 Lopressor PO Not Given BID KELLY Pantoprazole Sodiu m 40 mg 05/08/19 07:00 05/12/19 08:59 Protonix IVP 40 mg Q12H KELLY Administration Polyethylene Glyco l 17 gm 05/10/19 15:05 05/12/19 08:59 Miralax PO 17 gm DAILY KELLY Administration Potassium Chloride 40 meq 05/10/19 09:00 05/12/19 08:59 Potassium Chlori de Oral Liquid PO 40 meq DAILY KELLY Administration Senna/Docusate Sod ium 2 tab 05/10/19 18:00 05/12/19 08:59 Senna-S PO 2 tab BID KELLY Administration Vitals/I&O/Wt Last Vital Signs Temp 100.4 F H 05/12/19 07:35 Pulse 96 05/12/19 08:15 Resp 21 H 05/12/19 09:47 BP 83/46 05/12/19 07:35 Pulse Ox 97 05/12/19 07:48 05/11/19 05/12/19 05/12/19 22:59 06:59 14:59 Intake Total 679.490 / 1094.533 602.504 / 1697.037 381.117 / 381.117 Output Total 650 / 650 300 / 950 Balance 29.490 / 444.533 302.504 / 747.037 381.117 / 381.117 Weight last 48 hrs Weight 101.106 kg Physical Exam Const: COMMON NORMALS: no apparent distress GENERAL APPEARANCE: appears older than stated age NUTRITIONAL APPEARANCE: obese morbidly obese ORIENTATION/CONSCIOUSNESS: Yes awake OTHER: -Sedated HENMT: COMMON NORMALS: normocephalic and head/scalp atraumatic HEAD & SCALP: normocephalic and atraumatic OTHER: -Orally intubated Eye: COMMON NORMALS: PERRL, EOMs intact bilaterally and conjunctivae normal CONJUNCTIVA: Yes conjunctivae normal PUPIL: Yes PERRL Neck/C-Spine: COMMON NORMALS: full ROM GENERAL: Yes normal visual inspection and Yes trachea midline Lymph: LYMPHATIC: lymphedema Resp: COMMON NORMALS: normal respiratory effort, no retractions, no use of accessory muscles and clear to auscultation bilaterally EFFORT & INSPECTION: Yes able to speak in complete sentences, Yes symmetric chest movement and No tachypneic AUSCULTATION: clear to auscultation bilaterally OTHER: -Abdominal breathing with tachypnea; intubated (35%/450/8) and breathing over vent. Coarse breath sounds bilaterally ; ETT-26 cm at lip Cardio: COMMON NORMALS: regular rate, regular rhythm, S1 normal heart sound, S2 normal heart sound and no murmurs RATE: regular rate RHYTHM: regular rhythm HEART SOUNDS: S1 normal and S2 normal GI: COMMON NORMALS: normal to inspection, nondistended, normoactive bowel sounds, soft to palpation and non-tender INSPECTION: Yes central obesity PALPATION: Yes soft : BLADDER/KIDNEY EXAM: Yes catheter in place Catheter type (Female): urethral Extremity: COMMON NORMALS: normal to inspection and full ROM GENERAL: Yes edema Neuro: COMMON NORMALS: moves all extremities, no focal motor deficits and no sensory deficits noted OTHER: sedated Psych: OTHER: sedated Skin: COMMON NORMALS: no jaundice, no petechiae and no mottling OTHER: -Noted intertrigo in pannus, bilateral inguinal areas, gluteal cleft Urinary Catheter Management^: Mann: Cath Placed During This Visit: yes Urethral Indwelling: Yes Reason for Continuing Indwelling Catheter: Accurate Measurement of Urinary Output in Critically Ill Patients Urinary Catheter Date of Insertion: 05/10/19 Urinary Catheter Time of Insertion: 18:00 Data : 05/12/19 13:03 05/12/19 04:00 A&P Assessment and plan (1) Acute respiratory failure with hypoxia: -Required intubation following CODE BLUE, remains on vent support. Not ready for weaning trial today -ABG appropriate; daily ABGs while on vent -Continue sedation, currently on propofol and precedex, requested increase in rate this morning due to noted tachypnea and abdominal breathing -Hold off on diuresis given continued renal impairment -Has Mann catheter in place, continue to monitor urine output -Continue antibiotic treatment with vancomycin and Levaquin; has noted allergy to Zosyn -Imaging consistent with fluid overload; repeat chest x-ray in a.m. showed slightly increased pulmonary vascular congestion and stable left-sided pulmonary infiltrates -Echo: EF=64%, no RWMA, G1DD, mild MR, trace AR -febrile with Tmax-101.8 F yesterday; currently afebrile -Vital signs otherwise stable -continue to monitor renal function, lytes with diuresis -continue to monitor Is & Os, daily weights -telemetry monitoring -f/u sputum cx; gram stain negative, noted WBCs -blood cx: prelim negative -continue to monitor respiratory status closely -supplemental oxygen as needed -Neb treatments as needed -noted D-dimer elevation, negative PE, negative DVT -very low suspicion for possible aspiration but if continued fever and/or hemodynamic instability may need to include anaerobic coverage Status: Acute Code(s): J96.01 - Acute respiratory failure with hypoxia (2) NSTEMI (non-ST elevated myocardial infarction): -Noted to have significantly elevated troponins with a delta over 90 which may have precipitated code -Given current need for continued ventilator support, will continue medical management, was already started on a heparin drip, statin, full dose aspirin and Plavix -No acute ischemic changes noted on EKG -Echo done previously as noted below with no noted regional wall motion abnormalities -Continue telemetry monitoring -Will need cardiology evaluation once more stable Status: Acute Code(s): I21.4 - Non-ST elevation (NSTEMI) myocardial infarction (3) Macrocytic anemia: -has chronic macrocytic anemia; has evidence of vitamin B12 and folate deficiency -replacing vitamin B12, folate -also noted evidence of low iron though ferritin is normal -f/u FOBT; had reported black stools -baseline Hg is around 11; continue to monitor H/H closely; has been stable so far -on PPI Status: Acute Code(s): D53.9 - Nutritional anemia, unspecified Additional A&P Information -Morbid obesity: BMI-41 kg/m2 -Hx of thyroid cancer s/p thyroidectomy with acquired hypothyroidism; continue levothyroxine -HTN -GEOVANNI -GERD; on PPI -NIDDM type II; A1c-5.5; accuchecks, ISS -has significant bilateral LE lymphedema; lymphedema wraps -DELLA on CKD stage 2; baseline Cr around 0.9; likely due to diuresis. Continue to monitor renal function -Intertrigo involving pannus, bilateral inguinal areas, gluteal cleft; interdry, frequent repositioning, keep areas clean and dry -cardiac diet as tolerated -PT/OT evaluations appreciated -GI ppx with PPI -DVT ppx with SCDs; no AC due to bleeding risk -Dispo: home -Code status: FULL code -continue ICU care due to vent support Attestations Medical Necessity Statement*: Patient requires hospitalization for continued management of acute hypoxic respiratory failure, on vent support, as well as medical management of NSTEMI. Time Spent in Patient Care: Greater than 35 minutes (>than 50% of time spent in counselling and/or direct pt care on unit). Critical Care Time: The high probability of a clinically significant, sudden or life threatening deterioration of the patient's [cardiovascular, respiratory] system(s) required my full and direct attention, intervention and personal management. The critical care time is as shown. This time is in addition to time spent performing any reported procedures but includes the following: [x] Data and vital sign review and interpretation [x] Patient assessment, examination and intervention [x] Documentation [x] Medication orders and management Critical Care Time (min): 15 Coding Level of Care Code Acute Quality Checker for Idanai Allison Exam Problem Focused Diagnoses Acute respiratory failure with hypoxia J96.01 NSTEMI (non-ST elevated myocardial infarction) I21.4 Macrocytic anemia D53.9
--- NOTE | 2019-05-12 10:13 | PC.OT ---
OT TREATMENT WITHHELD DUE TO PATIENT INTUBATION AND SEDATION
[2019-05-12 13:10] LABS: Hematocrit 22.9 % (37.0-47.0); Hemoglobin 7.4 g/dL (11.5-15.3)
--- NOTE | 2019-05-12 13:49 | PC.PT ---
PT note; patient remains intubated and sedated, PT on hold awaiting improvements, will follow
[2019-05-12] MEDS: heparin 5,000 unit/mL INJ 1 mL IV (13:54)
[2019-05-12 16:54] LABS: Glucose Point of Care 121 mg/dL (70-110)
[2019-05-12 16:54] LABS: Glucose Point of Care 155 mg/dL (70-110)
[2019-05-12 16:54] LABS: Glucose Point of Care 159 mg/dL (70-110)
[2019-05-12] MEDS: propofol 1,000 MG/100 ML INJ 18.2 MG IV ×2 (17:00→21:15)
[2019-05-12 19:04] LABS: Partial Thromboplastin Time 58.4 SECONDS (23.9-36.7)
--- NOTE | 2019-05-12 19:08 | PC.NURSE ---
lab notified about PTT due. Brigette RN
[2019-05-12 20:59] LABS: Vancomycin Trough 23.3 ug/mL (10-15)
[2019-05-12] MEDS: atorvastatin 40 mg Tablet 20 MG PO (21:04)
[2019-05-12 21:22] LABS: Glucose Point of Care 146 mg/dL (70-110)
--- NOTE | 2019-05-12 22:39 | PC.NURSE ---
VANC TROUGH OF 23.3, 2200 DOSE OF VANCOMYCIN HELD PER PHARMACY. MMORGAN RN
[2019-05-13] VITALS (55 sets, daily range): BP systolic 84–178; BP diastolic 41–125; PULSE 71–93; RESP 14–27; TEMP 36.8; O2SAT 94–100; BMI 41.9
[2019-05-13] MEDS: propofol 1,000 MG/100 ML INJ 18.2 MG IV (01:53)
[2019-05-13 02:17] LABS: Eosinophils # 0.1 10^3/uL (0.0-0.8); Eosinophils % 2.1 %; Hematocrit 24.7 % (37.0-47.0); Hemoglobin 7.9 g/dL (11.5-15.3); Lymphocytes # 0.2 10^3/uL (0.8-4.8); Lymphocytes % 5.7 %; Mean Corpuscular Hemoglobin 32.2 pg (28.0-34.0); Mean Corpuscular Volume 100.8 fL (81-99); Mean Platelet Volume 10.3 fL (7.4-10.4); Monocytes # 0.2 10^3/uL (0.2-0.9); Monocytes % 4.1 %; Neutrophils # 3.4 10^3/uL (1.8-7.7); Neutrophils % 87.6 %; Nucleated Red Blood Cells % 0 %; Platelet Count 252 10^3/cmm (130-400); Red Blood Count 2.45 10^6/uL (4.1-5.3); Red Cell Distribution Width 19.9 % (12.1-15.1); White Blood Count 3.9 10^3/uL (4.0-10.0)
[2019-05-13 02:38] LABS: Partial Thromboplastin Time 62.1 SECONDS (23.9-36.7)
[2019-05-13 02:48] LABS: Anion Gap 18.9 (5-19); Blood Urea Nitrogen 36 mg/dL (8-23); Calcium 6.8 mg/dL (8.5-10.5); Carbon Dioxide 24 mmol/L (22-29); Chloride 97 mmol/L (98-107); Glucose 130 mg/dL (65-115); Osmolality Calculated 281 mOsm/kg (285-295); Potassium 3.9 mmol/L (3.5-5.1); Sodium 136 mmol/L (136-145)
[2019-05-13] MEDS: ipratropium-albuterol 3 mL Neb INHALATION ×4 (03:01→20:24)
[2019-05-13 04:51] LABS: ABG PCO2 39.7 mmHg (35-45); ABG PH Result 7.41 (7.35-7.45); Arterial Blood Gas Hematocrit 34.7 % (37-47); Base Excess ABG 0.7 mmol/L (-2.0-2.0); Blood Gas Allen Test Pos; Blood Gas Sample Site Radial, right; Blood Gas Sample Type Arterial; Blood Gas Tidal Volume 0.45; HCO3 ABG 25.3 mmol/L (22-26); Oxygen Device VENT; PO2 ABG 82.1 mmHg (80.0-100.0)
[2019-05-13] MEDS: propofol 1,000 MG/100 ML INJ 21.2 MG IV ×2 (06:30→13:10)
[2019-05-13 07:18] LABS: Glucose Point of Care 139 mg/dL (70-110)
[2019-05-13] MEDS: potassium chloride oral liq 20 mEq/15 mL UDC 40 MEQ PO (08:59)
[2019-05-13] MEDS: levofloxacin-dextrose 5 % 750 MG/150 ML PREMIX 150 MG IV (08:59)
[2019-05-13] MEDS: sennosides-docusate Tablet 2 TAB PO ×2 (09:00→17:43)
[2019-05-13] MEDS: pantoprazole 40 mg SDV IVP ×2 (09:00→21:02)
[2019-05-13] MEDS: folic acid 1 mg Tablet PO (09:00)
[2019-05-13] MEDS: metoprolol tartrate 25 mg Tablet PO ×2 (09:00→17:43)
[2019-05-13] MEDS: aspirin 325 mg Tablet PO (09:00)
[2019-05-13] MEDS: levothyroxine 25 mcg Tablet PO (09:00)
[2019-05-13] MEDS: levothyroxine 150 mcg Tablet PO (09:01)
[2019-05-13] MEDS: clopidogrel 75 mg Tablet PO (09:01)
[2019-05-13] MEDS: cyanocobalamin 1,000 mcg Tablet 1000 MCG PO (09:08)
--- NOTE | 2019-05-13 10:05 | PC.NURSE ---
patient weined off of levophed, maintaing blood pressure
--- NOTE | 2019-05-13 10:18 | PC.NUTR ---
NUTR TF RECOMMENDATIONS: Glucerna with goal rate of 55 ml/hr providing 1584 kcal (64%), 77 g PRO (97%), and 1063 ml fluid (43%)(%NEEDS). Suggest increasing TF by 10 ml as tolerated until goal is reached. Suggest 200 ml H2O flushes Q4H to approach fluid needs or per physician.
--- NOTE | 2019-05-13 11:05 | PC.NURSE ---
tube feeding decreased and sedation decreased attempting to wean ventilator
--- NOTE | 2019-05-13 11:18 | P.PN_ITS ---
Subjective Subjective: Interval history: Mildly improved urine output overnight of 700 mL, AM labs noted, creatinine stable, ABG appropriate. Afebrile overnight. Chest x-ray shows mild improvement. Able to wean off levo fed. Remains on Precedex and propofol for sedation though rates have been decreased. Patient is easily arousable to verbal and tactile stimulation. Family at bedside updated. Down to FiO2 of 30% on the ventilator. Attempted to decrease sedation and patient caught quite anxious and noted increase in respiratory rate. Medications: Reviewed: Yes Medication Review Details: Current Medications Generic Name Dose Route Start Last Admin Trade Name Freq PRN Reason Stop Dose Admin Acetaminophen 650 mg 05/08/19 05:56 05/10/19 13:00 Tylenol PO 650 mg Q6H PRN Administration Mild/Mod Pain Or Temp >/= 101 Albuterol/Ipratrop ium 3 ml 05/09/19 15:00 05/13/19 08:13 Duoneb INHALATION 3 ml Q6H.RESPIRATORY P RN Administration SHORTNESS OF BELINDA TH Aspirin 325 mg 05/10/19 22:40 05/13/19 09:00 Aspirin PO 325 mg DAILY KELLY Administration Atorvastatin Calci um 20 mg 05/10/19 22:40 05/12/19 21:04 Lipitor PO 20 mg BEDTIME KELLY Administration Clopidogrel Bisulf ate 75 mg 05/11/19 09:00 05/13/19 09:01 Plavix PO 75 mg DAILY KELLY Administration Cyanocobalamin 1,000 mcg 05/08/19 10:00 05/13/19 09:08 Vitamin B-12 PO 1,000 mcg DAILY KELLY Administration Folic Acid 1 mg 05/08/19 10:00 05/13/19 09:00 Folic Acid PO 1 mg DAILY KELLY Administration Heparin Sodium (Be ef Lung) 0 unit 05/10/19 22:35 05/12/19 13:54 Heparin IV 2,100 unit PRN PRN Administration Heparin weight-ba se protocol Protocol Levofloxacin/Dextr ose 750 mg in 150 mls @ 150 mls/hr 05/11/19 09:00 05/13/19 08:59 Levaquin-D5w IV 150 mls/hr Q48H KELLY Administration Protocol Propofol 1,000 mg in 100 m ls @ 0 mls/hr 05/10/19 19:37 05/13/19 06:30 Diprivan IV 35 mcg/kg/min .Q0M KELLY 21.2 mls/hr Administration Protocol Per Protocol Heparin Sodium/Sod ium Chloride 25,000 unit in 50 0 mls @ 0 mls/hr 05/10/19 22:45 05/12/19 13:50 Heparin Drip IV 7.91 unit/kg/hr .Q0M KELLY 16 mls/hr Titration Protocol Per Protocol Dexmedetomidine HC l 400 mcg/ 104 mls @ 0 mls/h r 05/11/19 16:15 05/13/19 06:41 Sodium Chloride IV 0.4 mcg/kg/hr .Q0M KELLY 10.5 mls/hr Administration Protocol Per Protocol Norepinephrine Bit artrate 4 mg 254 mls @ 0 mls/h r 05/11/19 18:15 05/13/19 04:30 / Dextrose IV 4 mcg/min .Q0M KELLY 15.2 mls/hr Titration Protocol Per Protocol Insulin Aspart 0 unit 05/08/19 08:00 05/13/19 11:03 Novolog SUBCUT Not Given TIDWM KELLY Protocol Levothyroxine Sodi um 150 mcg 05/08/19 09:00 05/13/19 09:01 Synthroid PO 150 mcg DAILY KELLY Administration Levothyroxine Sodi um 25 mcg 05/08/19 09:00 05/13/19 09:00 Synthroid PO 25 mcg DAILY KELLY Administration Metoprolol Tartrat e 25 mg 05/10/19 14:45 05/13/19 09:00 Lopressor PO 25 mg BID KELLY Administration Pantoprazole Sodiu m 40 mg 05/08/19 07:00 05/13/19 09:00 Protonix IVP 40 mg Q12H KELLY Administration Polyethylene Glyco l 17 gm 05/10/19 15:05 05/13/19 09:20 Miralax PO Not Given DAILY KELLY Potassium Chloride 40 meq 05/10/19 09:00 05/13/19 08:59 Potassium Chlori de Oral Liquid PO 40 meq DAILY KELLY Administration Senna/Docusate Sod ium 2 tab 05/10/19 18:00 05/13/19 09:00 Senna-S PO 2 tab BID KELLY Administration Vitals/I&O/Wt Last Vital Signs Temp 98.2 F 05/13/19 04:00 Pulse 93 05/13/19 10:00 Resp 19 H 05/13/19 08:14 BP 112/56 05/13/19 10:00 Pulse Ox 96 05/13/19 10:00 05/12/19 05/13/19 05/13/19 22:59 06:59 14:59 Intake Total 618.533 / 1246.497 534.983 / 1781.480 0 / 0 Output Total 250 / 250 700 / 950 Balance 368.533 / 996.497 -165.017 / 831.480 0 / 0 Weight last 48 hrs Weight 103.958 kg Weight 103.958 kg Physical Exam Const: COMMON NORMALS: no apparent distress GENERAL APPEARANCE: appears older than stated age and grossly edematous NUTRITIONAL APPEARANCE: obese morbidly obese ORIENTATION/CONSCIOUSNESS: Yes awake OTHER: -Sedated HENMT: COMMON NORMALS: normocephalic and head/scalp atraumatic HEAD & SCALP: normocephalic and atraumatic OTHER: -Orally intubated Eye: COMMON NORMALS: PERRL, EOMs intact bilaterally and conjunctivae normal CONJUNCTIVA: Yes conjunctivae normal PUPIL: Yes PERRL Neck/C-Spine: COMMON NORMALS: full ROM GENERAL: Yes normal visual inspection and Yes trachea midline Lymph: LYMPHATIC: lymphedema Resp: COMMON NORMALS: normal respiratory effort, no retractions, no use of accessory muscles and clear to auscultation bilaterally EFFORT & INSPECTION: Yes able to speak in complete sentences, Yes symmetric chest movement and No tachypneic AUSCULTATION: clear to auscultation bilaterally OTHER: - intubated (30%/450/8) and breathing over vent. Coarse breath sounds bilaterally though improving air entry; ETT-26 cm at lip Cardio: COMMON NORMALS: regular rate, regular rhythm, S1 normal heart sound, S2 normal heart sound and no murmurs RATE: regular rate RHYTHM: regular rhythm HEART SOUNDS: S1 normal and S2 normal GI: COMMON NORMALS: normal to inspection, nondistended, normoactive bowel sounds, soft to palpation and non-tender INSPECTION: Yes central obesity PALPATION: Yes soft : BLADDER/KIDNEY EXAM: Yes catheter in place Catheter type (Female): urethral Extremity: COMMON NORMALS: normal to inspection and full ROM GENERAL: Yes edema ( chronic lymphedema, worse on L; gradually improving) Neuro: COMMON NORMALS: moves all extremities, no focal motor deficits and no sensory deficits noted OTHER: sedated Psych: COMMON NORMALS: mental status grossly normal, thought process normal, cooperative, affect normal and speech normal SPEECH: Yes normal speech THOUGHT PROCESS: normal thought process OTHER: sedated Skin: COMMON NORMALS: no jaundice, no petechiae and no mottling OTHER: - Noted intertrigo in pannus, bilateral inguinal areas, gluteal cleft Urinary Catheter Management^: Mann: Cath Placed During This Visit: yes Urethral Indwelling: Yes Reason for Continuing Indwelling Catheter: Chronic Indwelling Urinary Catheter on Admission Urinary Catheter Date of Insertion: 05/10/19 Urinary Catheter Time of Insertion: 18:00 Data : 05/13/19 01:50 05/13/19 01:50 Micro: Microbiology 05/10/19 21:10 Gram Stain - Final Sputum - Expectorated Sputum Sputum Culture - Final 05/08/19 02:08 Blood Culture - Final Blood NO GROWTH AFTER 5 DAYS 05/08/19 02:05 Blood Culture - Final Blood NO GROWTH AFTER 5 DAYS A&P Assessment and plan (1) Acute respiratory failure with hypoxia: -Required intubation following CODE BLUE, remains on vent support. Not ready for weaning trial today -ABG appropriate; daily ABGs while on vent -Continue sedation, currently on propofol and precedex, requested increase in rate this morning due to noted tachypnea and abdominal breathing -Hold off on diuresis given continued renal impairment -Has Mann catheter in place, continue to monitor urine output -Continue antibiotic treatment with vancomycin and Levaquin; has noted allergy to Zosyn -Imaging consistent with L lung opacity suggestive of pneumonia; repeat chest x- ray in a.m. -Echo: EF=64%, no RWMA, G1DD, mild MR, trace AR -febrile with Tmax-100.4 F yesterday; currently afebrile -Vital signs otherwise stable -continue to monitor renal function, lytes with diuresis -continue to monitor Is & Os, daily weights -telemetry monitoring -sputum cx: mixed nicho; gram stain negative, noted WBCs -blood cx: prelim negative -continue to monitor respiratory status closely -supplemental oxygen as needed -Neb treatments as needed -noted D-dimer elevation, negative PE, negative DVT -very low suspicion for possible aspiration but if continued fever and/or hemodynamic instability may need to include anaerobic coverage Status: Acute Code(s): J96.01 - Acute respiratory failure with hypoxia (2) NSTEMI (non-ST elevated myocardial infarction): -Noted to have significantly elevated troponins with a delta over 90 which may have precipitated code -Given current need for continued ventilator support, will continue medical management, was already started on a heparin drip, statin, full dose aspirin and Plavix -No acute ischemic changes noted on EKG -Echo done previously as noted below with no noted regional wall motion abnormalities -Continue telemetry monitoring -Will need cardiology evaluation once more stable Status: Acute Code(s): I21.4 - Non-ST elevation (NSTEMI) myocardial infarction (3) Macrocytic anemia: -has chronic macrocytic anemia; has evidence of vitamin B12 and folate deficiency -replacing vitamin B12, folate -also noted evidence of low iron though ferritin is normal -f/u FOBT; had reported black stools -baseline Hg is around 11; continue to monitor H/H closely; has been stable so far -on PPI Status: Acute Code(s): D53.9 - Nutritional anemia, unspecified Additional A&P Information -Morbid obesity: BMI-42 kg/m2 -Hx of thyroid cancer s/p thyroidectomy with acquired hypothyroidism; continue levothyroxine -HTN -GEOVANNI -GERD; on PPI -NIDDM type II; A1c-5.5; accuchecks, ISS -has significant bilateral LE lymphedema; lymphedema wraps -DELLA on CKD stage 2; baseline Cr around 0.9; likely due to diuresis. Continue to monitor renal function -Intertrigo involving pannus, bilateral inguinal areas, gluteal cleft; interdry, frequent repositioning, keep areas clean and dry -cardiac diet as tolerated -PT/OT evaluations appreciated -GI ppx with PPI -DVT ppx with SCDs; no AC due to bleeding risk -Dispo: home -Code status: FULL code -continue ICU care due to vent support Attestations Medical Necessity Statement*: Patient requires hospitalization for continued management of acute hypoxic respiratory failure, remains on ventilator support, IV antibiotics, intermittent IV diuresis. Time Spent in Patient Care: Greater than 35 minutes (>than 50% of time spent in counselling and/or direct pt care on unit) . Critical Care Time: The high probability of a clinically significant, sudden or life threatening deterioration of the patient's [cardiovascular, respiratory] system(s) required my full and direct attention, intervention and personal management. The critical care time is as shown. This time is in addition to time spent performing any reported procedures but includes the following: [x] Data and vital sign review and interpretation [x] Patient assessment, examination and intervention [x] Documentation [x] Medication orders and management Critical Care Time (min): 25 Coding Level of Care Code Acute Insurance Account Manager for Idania Fwmarysol Exam Problem Focused Diagnoses Acute respiratory failure with hypoxia J96.01 NSTEMI (non-ST elevated myocardial infarction) I21.4 Macrocytic anemia D53.9
--- NOTE | 2019-05-13 11:21 | XR_ITS ---
WS: [id number] Portable AP upright chest, 05/13/2019 Clinical Data: progression of infiltrates, vascular congestion Comparison: Portable chest, 05/12/2019 Findings: The endotracheal tube, right PICC line, nasogastric tube and monitor leads remain the same. There is a patchy opacity in the left lung which is unchanged. The atelectasis in the right lower lo be has cleared. The heart is at the upper limits of normal. The pulmonary vascularity is not remarkab le. The aortic arch shows mild calcification. XR/XR chest 1V portable [id number] Impression: 1. Right basilar atelectasis has cleared. 2. No change in left lung opacity which may represent pneumonia. 3. No change in multiple tubes.
[2019-05-13] MEDS: bumetanide 0.25 mg/mL SDV 10 mL 1 MG IV (11:38)
[2019-05-13] MEDS: vancomycin 1,000 MG in sodium chloride 0.9% 250 ML 250 MG IV (13:49)
--- NOTE | 2019-05-13 15:38 | PC.SOCIAL ---
IMM Update IMM given and explained to patient's Benjamin, as patient remains on the vent. verbalized understanding. Copy provided to patient.
--- NOTE | 2019-05-13 15:44 | PC.CHAP ---
Pastoral Care Encounter/Spiritual Assessment Type of Contact [] Declined tub rider visit [] Patient/Family/Request visit [] Outpatient visit [] Follow-up visit [] Physician referral [] Code/Alert [x] Routine visit [] Staff referral [] Actively dying [] Patient sleeping [] Family support [] [] Out of room [] Palliative care [] [] Receiving care in room [] Pre-surgical visit [] Trauma [] Long length of stay [x] ICU visit [] Other: Relational/Emotional Strength [] Patient feels connected with others/family/visitors/staff [] Distress [] Loneliness/isolation [] Abandonment Spirituality of Patient [] Person of Jaky [] Attends Pentecostal of their Jaky [] Believes in Prayer [] Reads Bible or Hindu materials [] There are Spiritual issues to be addressed Policy Advisor Interventions [] Prayer [] Active listening [] Non-anxious presence [] Spiritual/emotional support [] Crisis/trauma care [] Spiritual counseling [] Bereavement support [] Provided bereavement packet [] Provided Bible/devotional materials [] Provided toy/stuffed animal, coloring book to patient or family member [] Provided Communion [] Anointing/[place] [] Salvation [] Completed spiritual assessment [] Other: Impact on Illness or Injury [] Angry [] Fearful [] Anxious [] Often cries [] Exhaustion [] Unable to work [] Unable to attend episcopal [] Unable to walk/stand [] Unable to read [] Unable to drive [] Unable to eat/drink [] Unable to sleep [] Unable to be with family [] Patient intubated [] Other: Summary Follow up is requested Time spent with patient
[2019-05-13 16:07] LABS: Partial Thromboplastin Time 60.1 SECONDS (23.9-36.7)
[2019-05-13 17:13] LABS: Glucose Point of Care 141 mg/dL (70-110)
[2019-05-13 17:30] LABS: Glucose Point of Care 123 mg/dL (70-110)
[2019-05-13] MEDS: heparin drip 25,000 UNIT/500 ML PREMIX 16 UNIT IV (17:51)
--- NOTE | 2019-05-13 18:48 | PC.PT ---
Patient remains on hold per nursing, hoping to extubate soon
[2019-05-13] MEDS: atorvastatin 40 mg Tablet 20 MG PO (21:03)
[2019-05-14] VITALS (61 sets, daily range): BP systolic 70–149; BP diastolic 45–88; PULSE 74–97; RESP 18–40; TEMP 36.6; O2SAT 87–100; BMI 41.9
--- NOTE | 2019-05-14 00:37 | PC.NURSE ---
PATIENT IS CURRENTLY ON VENT SUPPORT. VACATION SEDATION DONE AND PATIENT DID FOLLOW COMMANDS . LUNGS STILL HAVE CRACKLES BILATERAL TELE SHOWS SR SATS WNL. ON Q 2 HOUR TURN SCHEDULE, SOFT LIMB RESTRAINTS INTACT RELEASED FOR CHECK TO SEE IF ABLE TO RELEASE. FAILED PATIENT TRIED TOPULL VENT AND LINES OUT.
[2019-05-14] MEDS: ipratropium-albuterol 3 mL Neb INHALATION ×4 (02:41→20:38)
[2019-05-14 06:29] LABS: Eosinophils # 0.1 10^3/uL (0.0-0.8); Eosinophils % 2.6 %; Hematocrit 23.5 % (37.0-47.0); Hemoglobin 7.4 g/dL (11.5-15.3); Lymphocytes # 0.3 10^3/uL (0.8-4.8); Lymphocytes % 9.9 %; Mean Corpuscular HGB Conc 31.5 g/dL (30.0-36.0); Mean Corpuscular Hemoglobin 32.2 pg (28.0-34.0); Mean Corpuscular Volume 102.2 fL (81-99); Monocytes # 0.2 10^3/uL (0.2-0.9); Monocytes % 6.4 %; Neutrophils # 2.8 10^3/uL (1.8-7.7); Neutrophils % 80.8 %; Nucleated Red Blood Cells % 0 %; Platelet Count 243 10^3/cmm (130-400); Red Cell Distribution Width 20.6 % (12.1-15.1); White Blood Count 3.4 10^3/uL (4.0-10.0)
[2019-05-14 06:48] LABS: Anion Gap 18.7 (5-19); Blood Urea Nitrogen 32 mg/dL (8-23); Calcium 6.7 mg/dL (8.5-10.5); Carbon Dioxide 23 mmol/L (22-29); Chloride 102 mmol/L (98-107); Glucose 100 mg/dL (65-115); Osmolality Calculated 285 mOsm/kg (285-295); Potassium 4.7 mmol/L (3.5-5.1); Sodium 139 mmol/L (136-145)
[2019-05-14 07:37] LABS: Glucose Point of Care 107 mg/dL (70-110)
--- NOTE | 2019-05-14 08:51 | PC.PT ---
Patient remains on hold per nursing as she remains intubated.
[2019-05-14] MEDS: levothyroxine 25 mcg Tablet PO (08:53)
[2019-05-14] MEDS: clopidogrel 75 mg Tablet PO (08:53)
[2019-05-14] MEDS: folic acid 1 mg Tablet PO (08:53)
[2019-05-14] MEDS: aspirin 325 mg Tablet PO (08:53)
[2019-05-14] MEDS: sennosides-docusate Tablet 2 TAB PO (08:53)
[2019-05-14] MEDS: metoprolol tartrate 25 mg Tablet PO ×2 (08:53→17:22)
[2019-05-14] MEDS: pantoprazole 40 mg SDV IVP ×2 (08:54→21:01)
[2019-05-14] MEDS: potassium chloride oral liq 20 mEq/15 mL UDC 40 MEQ PO (08:54)
[2019-05-14] MEDS: levothyroxine 150 mcg Tablet PO (08:54)
[2019-05-14] MEDS: cyanocobalamin 1,000 mcg Tablet 1000 MCG PO (08:59)
--- NOTE | 2019-05-14 09:24 | PC.OT ---
OT note: Will hold at this time, discussed with nursing and they are working on weaning from vent.
--- NOTE | 2019-05-14 09:33 | PC.CHAP ---
Pastoral Care Encounter/Spiritual Assessment Type of Contact [] Declined university counselor visit [] Patient/Family/Request visit [] Outpatient visit [] Follow-up visit [] Physician referral [] Code/Alert [x] Routine visit [] Staff referral [] Actively dying [] Patient sleeping [] Family support [] [] Out of room [] Palliative care [] [] Receiving care in room [] Pre-surgical visit [] Trauma [] Long length of stay [x ICU visit [x] Other:patient on respirator Relational/Emotional Strength [] Patient feels connected with others/family/visitors/staff [] Distress [] Loneliness/isolation [] Abandonment Spirituality of Patient [] Person of Jaky [] Attends Amish of their Jaky [x Believes in Prayer [] Reads Bible or Yarsani materials [] There are Spiritual issues to be addressed Assistant In Nursing Interventions [x] Prayer [] Active listening [] Non-anxious presence [] Spiritual/emotional support [] Crisis/trauma care [] Spiritual counseling [] Bereavement support [] Provided bereavement packet [] Provided Bible/devotional materials [] Provided toy/stuffed animal, coloring book to patient or family member [] Provided Communion [] Anointing/[place] [] Salvation [x] Completed spiritual assessment [] Other: Impact on Illness or Injury [] Angry [] Fearful [] Anxious [] Often cries [] Exhaustion [] Unable to work [] Unable to attend sikhism [] Unable to walk/stand [] Unable to read [] Unable to drive [] Unable to eat/drink [] Unable to sleep [] Unable to be with family [] Patient intubated [] Other: Summary present Time spent with patient 5min
--- NOTE | 2019-05-14 10:05 | P.PN_ITS ---
Subjective Subjective: Interval history: Remains on vent support, weaning trial today. Had 2100 mL urine output overnight. AM labs noted. Patient seen and examined, at bedside, weaning trial ongoing. Has done well with weaning trial, able to consistently follow commands. Extubated to BiPAP. Seems a little anxious so may need anxiolytics particularly to maintain BiPAP. Medications: Reviewed: Yes Medication Review Details: Current Medications Generic Name Dose Route Start Last Admin Trade Name Freq PRN Reason Stop Dose Admin Acetaminophen 650 mg 05/08/19 05:56 05/10/19 13:00 Tylenol PO 650 mg Q6H PRN Administration Mild/Mod Pain Or Temp >/= 101 Albuterol/Ipratrop ium 3 ml 05/09/19 15:00 05/14/19 08:02 Duoneb INHALATION 3 ml Q6H.RESPIRATORY P RN Administration SHORTNESS OF BELINDA TH Aspirin 325 mg 05/10/19 22:40 05/14/19 08:53 Aspirin PO 325 mg DAILY KELLY Administration Atorvastatin Calci um 20 mg 05/10/19 22:40 05/13/19 21:03 Lipitor PO 20 mg BEDTIME KELLY Administration Clopidogrel Bisulf ate 75 mg 05/11/19 09:00 05/14/19 08:53 Plavix PO 75 mg DAILY KELLY Administration Cyanocobalamin 1,000 mcg 05/08/19 10:00 05/14/19 08:59 Vitamin B-12 PO 1,000 mcg DAILY KELLY Administration Folic Acid 1 mg 05/08/19 10:00 05/14/19 08:53 Folic Acid PO 1 mg DAILY KELLY Administration Heparin Sodium (Be ef Lung) 0 unit 05/10/19 22:35 05/12/19 13:54 Heparin IV 2,100 unit PRN PRN Administration Heparin weight-ba se protocol Protocol Levofloxacin/Dextr ose 750 mg in 150 mls @ 150 mls/hr 05/11/19 09:00 05/13/19 18:57 Levaquin-D5w IV Infused Q48H KELLY Infusion Protocol Propofol 1,000 mg in 100 m ls @ 0 mls/hr 05/10/19 19:37 05/13/19 13:10 Diprivan IV 35 mcg/kg/min .Q0M KELLY 21.2 mls/hr Administration Protocol Per Protocol Heparin Sodium/Sod ium Chloride 25,000 unit in 50 0 mls @ 0 mls/hr 05/10/19 22:45 05/13/19 17:51 Heparin Drip IV 7.91 unit/kg/hr .Q0M KELLY 16 mls/hr Administration Protocol Per Protocol Dexmedetomidine HC l 400 mcg/ 104 mls @ 0 mls/h r 05/11/19 16:15 05/13/19 20:59 Sodium Chloride IV 0.4 mcg/kg/hr .Q0M KELLY 10.5 mls/hr Administration Protocol Per Protocol Norepinephrine Bit artrate 4 mg 254 mls @ 0 mls/h r 05/11/19 18:15 05/13/19 04:30 / Dextrose IV 4 mcg/min .Q0M KELLY 15.2 mls/hr Titration Protocol Per Protocol Vancomycin HCl 1,0 00 mg/ 250 mls @ 250 mls /hr 05/13/19 14:00 05/13/19 18:57 Sodium Chloride IV Infused Q24H KELLY Infusion Insulin Aspart 0 unit 05/08/19 08:00 05/14/19 09:05 Novolog SUBCUT Not Given [facility]ID[facility]1983 Protocol Levothyroxine Sodi um 150 mcg 05/08/19 09:00 05/14/19 08:54 Synthroid PO 150 mcg DAILY KELLY Administration Levothyroxine Sodi um 25 mcg 05/08/19 09:00 05/14/19 08:53 Synthroid PO 25 mcg DAILY KELLY Administration Metoprolol Tartrat e 25 mg 05/10/19 14:45 05/14/19 08:53 Lopressor PO 25 mg BID KELLY Administration Pantoprazole Sodiu m 40 mg 05/08/19 07:00 05/14/19 08:54 Protonix IVP 40 mg Q12H KELLY Administration Polyethylene Glyco l 17 gm 05/10/19 15:05 05/14/19 09:05 Miralax PO Not Given DAILY KELLY Potassium Chloride 40 meq 05/10/19 09:00 05/14/19 08:54 Potassium Chlori de Oral Liquid PO 40 meq DAILY KELLY Administration Senna/Docusate Sod ium 2 tab 05/10/19 18:00 05/14/19 08:53 Senna-S PO 2 tab BID KELLY Administration Vitals/I&O/Wt Last Vital Signs Temp 98.2 F 05/13/19 18:00 Pulse 81 05/14/19 08:00 Resp 20 H 05/14/19 09:31 BP 113/57 05/14/19 08:00 Pulse Ox 97 05/14/19 08:00 05/13/19 05/14/19 05/14/19 22:59 06:59 14:59 Intake Total 1696.008 / 1796.008 200 / 1996.008 400 / 400 Output Total 1900 / 1900 1000 / 2900 600 / 600 Balance -203.992 / -103.992 -800 / -903.992 -200 / -200 Weight last 48 hrs Weight 103.958 kg Weight 103.958 kg Physical Exam Const: COMMON NORMALS: no apparent distress and alert GENERAL APPEARANCE: appears older than stated age, grossly edematous and patient mechanically ventilated NUTRITIONAL APPEARANCE: obese morbidly obese ORIENTATI ON/CONSCIOUSNESS: Yes awake OTHER: -Able to consistently follow commands HENMT: COMMON NORMALS: normocephalic and head/scalp atraumatic HEAD & SCA LP: normocephalic and atraumatic OTHER: -Orally intubated Eye: COMMON NORMALS: PERRL, EOMs intact bilaterally and conjunctivae normal CONJUNCTIVA: Yes conjunctivae normal PUPIL: Yes PERRL Neck/C-Spine: COMMON NORMALS: full ROM GENERAL: Yes normal visual inspection and Yes trachea midline Lymph: LYMPHATIC: lymphedema Resp: COMMON NORMALS: normal respiratory effort, no retractions, no use of accessory muscles and clear to auscultation bilaterally EFFORT & INSPECTION: Yes able to speak in complete sentences, Yes symmetric chest movement and No tachypneic AUSCULTATION: clear to auscultation bilaterally OTHER: - intubated (30%/450/8) and breathing over vent. Coarse breath sounds bilaterally though improving air entry; ETT-26 cm at lip Cardio: COMMON NORMALS: regular rate, regular rhythm, S1 normal heart sound, S 2 normal heart sound and no murmurs RATE: regular rate RHYTHM: regular rhythm HEART SOUNDS: S1 normal and S2 normal GI: COMMON NORMALS: normal to inspection, nondistended, normoactive bowel sounds, soft to palpation and non-tender INSPECTION: Yes central obesity PALPATION: Yes soft : BLADDER/KIDNEY EXAM: Yes catheter in place Catheter type (Female): urethra l Extremity: COMMON NORMALS: normal to inspection and full ROM GENERAL: Yes edema ( chronic lymphedema, worse on L; gradually improving) Neuro: COMMON NORMALS: moves all extremities, no focal motor deficits and no sensory deficits noted SENSORIUM/ORIENTATION: Yes alert OTHER: sedated Psych: COMMON NORMALS: mental status grossly normal, thought process normal, cooperative, affect normal and speech normal SPEECH: Yes normal speech THOUGHT PROCESS: normal thought process OTHER: sedated Skin: COMMON NORMALS: no jaundice, no petechiae and no mottling OTHER: - Noted intertrigo in pannus, bilateral inguinal areas, gluteal cleft Urinary Catheter Management^: Mann: Cath Placed During This Visit: yes Urethral Indwelling: Yes Reason for Continuing Indwelling Catheter: Chronic Indwelling Urinary Catheter on Admission Urinary Catheter Date of Insertion: 05/10/19 Urinary Catheter Time of Insertion: 18:00 Data : 05/14/19 06:12 05/14/19 06:12 Micro: Microbiology 05/10/19 21:10 Gram Stain - Final Sputum - Expectorated Sputum Sputum Culture - Final A&P Assessment and plan (1) Acute respiratory failure with hypoxia: -Required intubation following CODE BLUE, remains on vent support. Not ready for weaning trial today -ABG appropriate; daily ABGs while on vent -Continue sedation, currently on propofol and precedex, requested increase in rate this morning due to noted tachypnea and abdominal breathing -resume gentle diuresis given continued renal impairment -Has Mann catheter in place, continue to monitor urine output -Continue antibiotic treatment with vancomycin and Levaquin; has noted allergy to Zosyn -Imaging consistent with L lung opacity suggestive of pneumonia -Echo: EF=64%, no RWMA, G1DD, mild MR, trace AR -afebrile x >24 hrs, vital signs otherwise stable; continue to monitor -continue to monitor renal function, lytes with diuresis -continue to monitor Is & Os, daily weights -telemetry monitoring -sputum cx: mixed nicho; gram stain negative, noted WBCs -blood cx: prelim negative -continue to monitor respiratory status closely -supplemental oxygen as needed -Neb treatments as needed -noted D-dimer elevation, negative PE, negative DVT -very low suspicion for possible aspiration but if continued fever and/or h emodynamic instability may need to include anaerobic coverage Status: Acute Code(s): J96.01 - Acute respiratory failure with hypoxia (2) NSTEMI (non-ST elevated myocardial infarction): -Noted to have significantly elevated troponins with a delta over 90 which may have precipitated code -Given current need for continued ventilator support, will continue medical management, was already started on a heparin drip, statin, full dose aspirin and Plavix -No acute ischemic changes noted on EKG -Echo done previously as noted below with no noted regional wall motion abnormalities -Continue telemetry monitoring -Will need cardiology evaluation once more stable Status: Acute Code(s): I21.4 - Non-ST elevation (NSTEMI) myocardial infarction (3) Macrocytic anemia: -has chronic macrocytic anemia; has evidence of vitamin B12 and folate deficiency -replacing vitamin B12, folate -also noted evidence of low iron though ferritin is normal -f/u FOBT; had reported black stools -baseline Hg is around 11; continue to monitor H/H closely; has been gradually trending down -on PPI Status: Acute Code(s): D53.9 - Nutritional anemia, unspecified Additional A&P Information -Morbid obesity: BMI-42 kg/m2 -Hx of thyroid cancer s/p thyroidectomy with acquired hypothyroidism; continue levothyroxine -HTN -GEOVANNI -GERD; on PPI -NIDDM type II; A1c-5.5; accuchecks, ISS -has significant bilateral LE lymphedema; lymphedema wraps -DELLA on CKD stage 2; baseline Cr around 0.9; likely due to diuresis. Continue to monitor renal function -Intertrigo involving pannus, bilateral inguinal areas, gluteal cleft; interdry, frequent repositioning, keep areas clean and dry -has been on tube feeding while intubated; if extubated, will have bedside dysphagia screening done then sips and chips can be started -PT/OT evaluations appreciated -GI ppx with PPI -DVT ppx with SCDs; no AC due to bleeding risk -Dispo: home -Code status: FULL code -continue ICU care due to vent support Attestations Medical Necessity Statement*: Patient requires hospitalization for continued management of NSTEMI, acute respiratory failure, on vent support, weaning trial today. Time Spent in Patient Care: Greater than 35 minutes (>than 50% of time spent in counselling and/or direct pt care on unit) . Critical Care Time: The high probability of a clinically significant, sudden or life threatening deterioration of the patient's [cardiovascular, respiratory] system(s) required my full and direct attention, intervention and personal management. The critical care time is as shown. This time is in addition to time spent performing any reported procedures but includes the following: [x] Data and vital sign review and interpretation [x] Patient assessment, examination and intervention [x] Documentation [x] Medication orders and management Critical Care Time (min): 30 Coding Level of Care Code Acute [facility] Cal[facility]ator for [facility] Fwd Exam Comprehensive Diagnoses Acute respiratory failure with hypoxia J96.01 NSTEMI (non-ST elevated myocardial infarction) I21.4 Macrocytic anemia D53.9
[2019-05-14] MEDS: bumetanide 0.25 mg/mL SDV 10 mL 1 MG IV ×2 (10:30→21:02)
[2019-05-14 11:57] LABS: Glucose Point of Care 104 mg/dL (70-110)
--- NOTE | 2019-05-14 13:23 | PC.RESP ---
extubated pt extubated and placed on 4lpm nc tolerated well
--- NOTE | 2019-05-14 13:50 | PC.NURSE ---
extabation placed on o2 2 liters, patient used the bathroom in bed, patient got upset breathing stats went down to 82 and heart rate went to 103 cleaned her up and changed bed linens, patient didnt handle it very well, went to bipap , heart rate is now at 97 and o2 is at 95
[2019-05-14] MEDS: vancomycin 1,000 MG in sodium chloride 0.9% 250 ML 250 MG IV (14:27)
[2019-05-14 18:14] LABS: Glucose Point of Care 103 mg/dL (70-110)
--- NOTE | 2019-05-14 19:18 | PC.NURSE ---
bedside report rcvd at this time. vss per cm. pt wearing bipap at this time . no distress noted. fariba lopez.
[2019-05-14] MEDS: atorvastatin 40 mg Tablet 20 MG PO (21:01)
[2019-05-15] VITALS (26 sets, daily range): BP systolic 107–194; BP diastolic 48–156; PULSE 73–102; RESP 19–40; TEMP 36.2–37.6; O2SAT 88–98; BMI 40.8
[2019-05-15] MEDS: ipratropium-albuterol 3 mL Neb INHALATION ×4 (01:58→20:19)
[2019-05-15] MEDS: heparin drip 25,000 UNIT/500 ML PREMIX 16 UNIT IV (03:58)
--- NOTE | 2019-05-15 04:01 | PC.NURSE ---
turned and positioned oral care done at this time. pt encouraged to t/c/d wet non productive cough noted. assessment per flowsheet. fariba lopez.
[2019-05-15 05:41] LABS: Anion Gap 24.8 (5-19); Blood Urea Nitrogen 34 mg/dL (8-23); Calcium 6.9 mg/dL (8.5-10.5); Carbon Dioxide 20 mmol/L (22-29); Chloride 103 mmol/L (98-107); Glucose 75 mg/dL (65-115); Osmolality Calculated 292 mOsm/kg (285-295); Partial Thromboplastin Time 40.2 SECONDS (23.9-36.7); Potassium 4.8 mmol/L (3.5-5.1); Sodium 143 mmol/L (136-145)
[2019-05-15 05:54] LABS: Basophils % 0.2 %; Eosinophils # 0.1 10^3/uL (0.0-0.8); Hematocrit 28.3 % (37.0-47.0); Hemoglobin 8.6 g/dL (11.5-15.3); Lymphocytes # 0.4 10^3/uL (0.8-4.8); Mean Corpuscular HGB Conc 30.4 g/dL (30.0-36.0); Mean Corpuscular Hemoglobin 33.5 pg (28.0-34.0); Mean Corpuscular Volume 110.1 fL (81-99); Monocytes # 0.3 10^3/uL (0.2-0.9); Monocytes % 5.8 %; Neutrophils # 4.2 10^3/uL (1.8-7.7); Neutrophils % 84.8 %; Nucleated Red Blood Cells % 0 %; Platelet Count 291 10^3/cmm (130-400); Red Blood Count 2.57 10^6/uL (4.1-5.3); Red Cell Distribution Width 20.9 % (12.1-15.1)
[2019-05-15] MEDS: heparin 5,000 unit/mL INJ 1 mL IV (06:07)
--- NOTE | 2019-05-15 10:25 | P.PN_ITS ---
Subjective Subjective: Interval history: Extubated yesterday, remains on BiPAP. Tachypneic with respiratory rates in the 20-30 range. Had 2200 mL urine output overnight. Patient seen and examined, will trial her on nasal cannula later today and see how she does. No acute overnight events reported. Medications: Reviewed: Yes Medication Review Details: Current Medications Generic Name Dose Route Start Last Admin Trade Name Freq PRN Reason Stop Dose Admin Acetaminophen 650 mg 05/08/19 05:56 05/10/19 13:00 Tylenol PO 650 mg Q6H PRN Administration Mild/Mod Pain Or Temp >/= 101 Albuterol/Ipratrop ium 3 ml 05/09/19 15:00 05/15/19 08:21 Duoneb INHALATION 3 ml Q6H.RESPIRATORY P RN Administration SHORTNESS OF BELINDA TH Aspirin 325 mg 05/10/19 22:40 05/14/19 08:53 Aspirin PO 325 mg DAILY KELLY Administration Atorvastatin Calci um 20 mg 05/10/19 22:40 05/14/19 21:01 Lipitor PO 20 mg BEDTIME KELLY Administration Bumetanide 1 mg 05/14/19 10:15 05/14/19 21:02 Bumex IV 1 mg Q12H KELLY Administration Clopidogrel Bisulf ate 75 mg 05/11/19 09:00 05/14/19 08:53 Plavix PO 75 mg DAILY KELLY Administration Cyanocobalamin 1,000 mcg 05/08/19 10:00 05/14/19 08:59 Vitamin B-12 PO 1,000 mcg DAILY KELLY Administration Folic Acid 1 mg 05/08/19 10:00 05/14/19 08:53 Folic Acid PO 1 mg DAILY KELLY Administration Heparin Sodium (Be ef Lung) 0 unit 05/10/19 22:35 05/15/19 06:07 Heparin IV 4,200 unit PRN PRN Administration Heparin weight-ba se protocol Protocol Levofloxacin/Dextr ose 750 mg in 150 mls @ 150 mls/hr 05/11/19 09:00 05/13/19 18:57 Levaquin-D5w IV Infused Q48H KELLY Infusion Protocol Propofol 1,000 mg in 100 m ls @ 0 mls/hr 05/10/19 19:37 05/13/19 13:10 Diprivan IV 35 mcg/kg/min .Q0M KELLY 21.2 mls/hr Administration Protocol Per Protocol Heparin Sodium/Sod ium Chloride 25,000 unit in 50 0 mls @ 0 mls/hr 05/10/19 22:45 05/15/19 06:12 Heparin Drip IV 9.89 unit/kg/hr .Q0M KELLY 20 mls/hr Titration Protocol Per Protocol Dexmedetomidine HC l 400 mcg/ 104 mls @ 0 mls/h r 05/11/19 16:15 05/13/19 20:59 Sodium Chloride IV 0.4 mcg/kg/hr .Q0M KELLY 10.5 mls/hr Administration Protocol Per Protocol Norepinephrine Bit artrate 4 mg 254 mls @ 0 mls/h r 05/11/19 18:15 05/13/19 04:30 / Dextrose IV 4 mcg/min .Q0M KELLY 15.2 mls/hr Titration Protocol Per Protocol Vancomycin HCl 1,0 00 mg/ 250 mls @ 250 mls /hr 05/13/19 14:00 05/14/19 14:27 Sodium Chloride IV 250 mls/hr Q24H KELLY Administration Insulin Aspart 0 unit 05/08/19 08:00 05/15/19 08:17 Novolog SUBCUT Not Given TIDWM KELLY Protocol Levothyroxine Sodi um 150 mcg 05/08/19 09:00 05/14/19 08:54 Synthroid PO 150 mcg DAILY KELLY Administration Levothyroxine Sodi um 25 mcg 05/08/19 09:00 05/14/19 08:53 Synthroid PO 25 mcg DAILY KELLY Administration Metoprolol Tartrat e 25 mg 05/10/19 14:45 05/14/19 17:22 Lopressor PO 25 mg BID KELLY Administration Pantoprazole Sodiu m 40 mg 05/08/19 07:00 05/14/19 21:01 Protonix IVP 40 mg Q12H KELLY Administration Polyethylene Glyco l 17 gm 05/10/19 15:05 05/14/19 09:05 Miralax PO Not Given DAILY KELLY Potassium Chloride 40 meq 05/10/19 09:00 05/14/19 08:54 Potassium Chlori de Oral Liquid PO 40 meq DAILY KELLY Administration Senna/Docusate Sod ium 2 tab 05/10/19 18:00 05/14/19 17:22 Senna-S PO Not Given BID KELLY Vitals/I&O/Wt Last Vital Signs Temp 98.4 F 05/15/19 08:00 Pulse 90 05/15/19 08:00 Resp 34 H 05/15/19 08:00 BP 155/68 05/15/19 08:00 Pulse Ox 97 05/15/19 08:00 05/14/19 05/15/19 05/15/19 22:59 06:59 14:59 Intake Total 0 / 800 535.733 / 1335.733 Output Total 1350 / 2550 2200 / 4750 Balance -1350 / -1750 -1664.267 / -3414.267 Weight last 48 hrs Weight 103.958 kg Physical Exam Const: COMMON NORMALS: no apparent distress, oriented x3 and alert GENERAL APPEARANCE: appears older than stated age and grossly edematous (Improving) NUTRITIONAL APPEARANCE: obese morbidly obese ORIENTATION/CONSCIOUSNESS: Yes awake HENMT: COMMON NORMALS: normocephalic and head/scalp atraumatic HEAD & SCALP: normocephalic and atraumatic Eye: COMMON NORMALS: PERRL, EOMs intact bilaterally and conjunctivae normal CONJUNCTIVA: Yes conjunctivae normal PUPIL: Yes PERRL Neck/C-Spine: COMMON NORMALS: full ROM GENERAL: Yes normal visual inspection and Yes trachea midline Lymph: LYMPHATIC: lymphedema Resp: COMMON NORMALS: normal respiratory effort, no retractions, no use of accessory muscles and clear to auscultation bilaterally EFFORT & INSPECTION: Yes symmetric chest movement and Yes tachypneic AUSCULTATION: clear to auscultation bilaterally Cardio: COMMON NORMALS: regular rate, regular rhythm, S1 normal heart sound, S2 normal heart sound and no murmurs RATE: regular rate RHYTHM: regular rhythm HEART SOUNDS: S1 normal and S2 normal GI: COMMON NORMALS: normal to inspection, nondistended, normoactive bowel sounds, soft to palpation and non-tender INSPECTION: Yes central obesity PALPATION: Yes soft : BLADDER/KIDNEY EXAM: Yes catheter in place Catheter type (Female): urethral Extremity: COMMON NORMALS: normal to inspection and full ROM GENERAL: Yes edema ( chronic lymphedema, worse on L; gradually improving) Neuro: COMMON NORMALS: oriented x3, moves all extremities, no focal motor deficits and no sensory deficits noted SENSORIUM/ORIENTATION: Yes alert Psych: COMMON NORMALS: mental status grossly normal, thought process normal, cooperative, affect normal and speech normal SPEECH: Yes normal speech THOUGHT PROCESS: normal thought process Skin: COMMON NORMALS: no jaundice, no petechiae and no mottling OTHER: - Noted intertrigo in pannus, bilateral inguinal areas, gluteal cleft Urinary Catheter Management^: Mann: Cath Placed During This Visit: yes Urethral Indwelling: Yes Reason for Continuing Indwelling Catheter: Accurate Measurement of Urinary Output in Critically Ill Patients Urinary Catheter Date of Insertion: 05/10/19 Urinary Catheter Time of Insertion: 18:00 Data : 05/15/19 04:40 05/15/19 04:40 A&P Assessment and plan (1) Acute respiratory failure with hypoxia: -Required intubation following CODE BLUE, extubated on 05/14 -on diuresis due to anasarca -Has Mann catheter in place, continue to monitor urine output; assess daily for removal -Continue antibiotic treatment with vancomycin and Levaquin; has noted allergy to Zosyn -Imaging consistent with L lung opacity suggestive of pneumonia -Echo: EF=64%, no RWMA, G1DD, mild MR, trace AR -afebrile x >24 hrs, vital signs otherwise stable; continue to monitor -continue to monitor renal function, lytes with diuresis -continue to monitor Is & Os, daily weights -telemetry monitoring -sputum cx: mixed nicho; gram stain negative, noted WBCs -blood cx: prelim negative -continue to monitor respiratory status closely -supplemental oxygen as needed -Neb treatments as needed -noted D-dimer elevation, negative PE, negative DVT -very low suspicion for possible aspiration but if continued fever and/or hemodynamic instability may need to include anaerobic coverage Status: Acute Code(s): J96.01 - Acute respiratory failure with hypoxia (2) NSTEMI (non-ST elevated myocardial infarction): -Noted to have significantly elevated troponins with a delta over 90 which may have precipitated code -Given current need for continued ventilator support, will continue medical man agement, was already started on a heparin drip, statin, full dose aspirin and Plavix -No acute ischemic changes noted on EKG -Echo done previously as noted below with no noted regional wall motion abn ormalities -Continue telemetry monitoring -Will need cardiology evaluation once more stable Status: Acute Code(s): I21.4 - Non-ST elevation (NSTEMI) myocardial infarction (3) Macrocytic anemia: -has chronic macrocytic anemia; has evidence of vitamin B12 and folate deficiency -replacing vitamin B12, folate -also noted evidence of low iron though ferritin is normal -f/u FOBT; had reported black stools -baseline Hg is around 11; continue to monitor H/H closely; has been gradually trending down -on PPI Status: Acute Code(s): D53.9 - Nutritional anemia, unspecified Additional A&P Information -Morbid obesity: BMI-42 kg/m2 -Hx of thyroid cancer s/p thyroidectomy with acquired hypothyroidism; continue levothyroxine -HTN -GEOVANNI -GERD; on PPI -NIDDM type II; A1c-5.5; accuchecks, ISS -has significant bilateral LE lymphedema; lymphedema wraps -DELLA on CKD stage 2; baseline Cr around 0.9; likely due to diuresis. Continue to monitor renal function -Intertrigo involving pannus, bilateral inguinal areas, gluteal cleft; interdry, frequent repositioning, keep areas clean and dry -has been on tube feeding while intubated; if extubated, will have bedside dysphagia screening done then sips and chips can be started -PT/OT evaluations appreciated -GI ppx with PPI -DVT ppx with SCDs; no AC due to bleeding risk -Dispo: home -Code status: FULL code -continue ICU care due to need for continued close monitoring of respiratory status; low threshold for decompensation Attestations Medical Necessity Statement*: Patient requires hospitalization for continued management of pneumonia, IV diuresis, treatment of NSTEMI. Time Spent in Patient Care: Greater than 35 minutes (>than 50% of time spent in counselling and/or direct pt care on unit) . Coding Level of Care Code Acute Accordion Maker for [facility] Fwd Exam Comprehensive Diagnoses Acute respiratory failure with hypoxia J96.01 NSTEMI (non-ST elevated myocardial infarction) I21.4 Macrocytic anemia D53.9
[2019-05-15 10:41] LABS: Glucose Point of Care 70 mg/dL (70-110)
[2019-05-15] MEDS: sennosides-docusate Tablet 2 TAB PO ×2 (10:51→16:43)
[2019-05-15] MEDS: clopidogrel 75 mg Tablet PO (10:52)
[2019-05-15] MEDS: metoprolol tartrate 25 mg Tablet PO ×2 (10:52→16:43)
[2019-05-15] MEDS: aspirin 325 mg Tablet PO (10:52)
[2019-05-15] MEDS: folic acid 1 mg Tablet PO (10:52)
[2019-05-15] MEDS: levothyroxine 25 mcg Tablet PO (10:52)
[2019-05-15] MEDS: pantoprazole 40 mg SDV IVP ×2 (10:53→21:05)
[2019-05-15] MEDS: levothyroxine 150 mcg Tablet PO (10:53)
[2019-05-15] MEDS: bumetanide 0.25 mg/mL SDV 10 mL 1 MG IV ×2 (10:53→21:05)
[2019-05-15] MEDS: levofloxacin-dextrose 5 % 750 MG/150 ML PREMIX 150 MG IV (10:54)
--- NOTE | 2019-05-15 10:54 | PC.SOCIAL ---
IMM Updated Updated pt on Pg 2 IMM. Pt verbally understands, no question voiced. Provided a copy to pt & left on bedside table. Signed, dated, & timed original in chart.
[2019-05-15 11:38] LABS: Partial Thromboplastin Time > 250.0 SECONDS (23.9-36.7)
[2019-05-15 13:14] LABS: Vancomycin Trough 19.9 ug/mL (10-15)
[2019-05-15 16:03] LABS: Partial Thromboplastin Time 33.7 SECONDS (23.9-36.7)
[2019-05-15] MEDS: vancomycin 1,000 MG in sodium chloride 0.9% 250 ML 250 MG IV (16:15)
[2019-05-15] MEDS: LORazepam 2 mg/mL INJ 1 mL 0.5 MG IVP ×2 (16:43→21:05)
[2019-05-15 17:01] LABS: Glucose Point of Care 69 mg/dL (70-110)
[2019-05-15 17:45] LABS: Glucose Point of Care 76 mg/dL (70-110)
[2019-05-15 17:45] LABS: Glucose Point of Care 85 mg/dL (70-110)
[2019-05-15 17:45] LABS: Glucose Point of Care 76 mg/dL (70-110)
[2019-05-15] MEDS: atorvastatin 40 mg Tablet 20 MG PO (21:05)
[2019-05-15 22:44] LABS: Partial Thromboplastin Time 51.7 SECONDS (23.9-36.7)
[2019-05-16] VITALS (25 sets, daily range): BP systolic 101–176; BP diastolic 52–105; PULSE 74–98; RESP 6–39; TEMP 36.3–36.8; O2SAT 85–99
[2019-05-16] MEDS: ipratropium-albuterol 3 mL Neb INHALATION ×4 (02:07→21:36)
[2019-05-16] MEDS: LORazepam 2 mg/mL INJ 1 mL 0.5 MG IVP ×2 (04:19→21:51)
--- NOTE | 2019-05-16 04:24 | PC.NURSE ---
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 sips given frequently . spo2 drops when bipap removed . 0.5 mg ativan given per may. yuko lopez.
[2019-05-16 05:34] LABS: Eosinophils # 0.1 10^3/uL (0.0-0.8); Eosinophils % 1.3 %; Hemoglobin 8.4 g/dL (11.5-15.3); Lymphocytes # 0.3 10^3/uL (0.8-4.8); Lymphocytes % 6.8 %; Mean Corpuscular Hemoglobin 31.9 pg (28.0-34.0); Mean Corpuscular Volume 106.5 fL (81-99); Mean Platelet Volume 9.3 fL (7.4-10.4); Monocytes # 0.3 10^3/uL (0.2-0.9); Monocytes % 7.2 %; Neutrophils % 83.2 %; Nucleated Red Blood Cells % 0 %; Platelet Count 290 10^3/cmm (130-400); Red Blood Count 2.63 10^6/uL (4.1-5.3); Red Cell Distribution Width 20.4 % (12.1-15.1); White Blood Count 4.7 10^3/uL (4.0-10.0)
[2019-05-16 05:45] LABS: Partial Thromboplastin Time 46.4 SECONDS (23.9-36.7)
[2019-05-16 05:50] LABS: Anion Gap 23.4 (5-19); Blood Urea Nitrogen 34 mg/dL (8-23); Calcium 7.1 mg/dL (8.5-10.5); Carbon Dioxide 22 mmol/L (22-29); Chloride 103 mmol/L (98-107); Glucose 109 mg/dL (65-115); Osmolality Calculated 296 mOsm/kg (285-295); Potassium 4.4 mmol/L (3.5-5.1); Sodium 144 mmol/L (136-145)
[2019-05-16] MEDS: heparin 5,000 unit/mL INJ 1 mL IV (06:00)
[2019-05-16 07:23] LABS: Glucose Point of Care 99 mg/dL (70-110)
[2019-05-16] MEDS: pantoprazole 40 mg SDV IVP ×2 (09:17→21:34)
[2019-05-16] MEDS: bumetanide 0.25 mg/mL SDV 10 mL 1 MG IV ×2 (09:17→21:33)
[2019-05-16] MEDS: metoprolol tartrate 25 mg Tablet PO ×2 (09:18→18:44)
[2019-05-16] MEDS: sennosides-docusate Tablet 2 TAB PO ×2 (09:18→18:45)
[2019-05-16] MEDS: aspirin 325 mg Tablet PO (09:18)
[2019-05-16] MEDS: folic acid 1 mg Tablet PO (09:19)
[2019-05-16] MEDS: clopidogrel 75 mg Tablet PO (09:19)
[2019-05-16] MEDS: levothyroxine 150 mcg Tablet PO (09:19)
[2019-05-16] MEDS: polyethylene glycol 3350 Pkt 17 gm PO (09:19)
[2019-05-16] MEDS: levothyroxine 25 mcg Tablet PO (09:19)
[2019-05-16 09:27] LABS: ABG PCO2 36.2 mmHg (35-45); ABG PH Result 7.45 (7.35-7.45); Alveolar-Arterial Oxygen Gradi 90.5 mmHg (5-10); Base Excess ABG 1.4 mmol/L (-2.0-2.0); Blood Gas Allen Test Pos; Blood Gas Sample Site Radial, right; Blood Gas Sample Type Arterial; Blood Gas Tidal Volume 0.45; HCO3 ABG 25.3 mmol/L (22-26); HGB O2 Sat 94.6 % (95-100); Ionized Calcium Level - ABG 0.9 mmol/L (1.1-1.4); Methemoglobin 0.9 % (0.4-1.5); Oxygen Device VENT; Oxygen Saturation ABG 96.4; PO2 ABG 77.6 mmHg (80.0-100.0); Potassium Level - ABG 4.4 mmol/L (3.5-5.0); Total Hemoglobin 7.8 g/dL (12-16)
[2019-05-16 11:14] LABS: Glucose Point of Care 128 mg/dL (70-110)
[2019-05-16] MEDS: heparin drip 25,000 UNIT/500 ML PREMIX 22 UNIT IV (11:14)
--- NOTE | 2019-05-16 11:18 | PC.NURSE ---
patient left AMA Patient left AMA, nurse instructed on risk of leaving AMA, patient refused to sign paperwork. IV removed from left hand. Patient left with significant other Amie.
--- NOTE | 2019-05-16 11:40 | P.PN_ITS ---
Subjective Subjective: Interval history: Was on BiPAP overnight, is on 5 L currently saturating at 96%, a.m. labs noted with continued improvement in renal function. Slight drop in hemoglobin to 8.4. Had 1500 mL urine output overnight. Patient seen and examined, seen by physical therapy, quite weak. Continues to complain of pain in her bottom, requiring frequent repositioning. Medications: Reviewed: Yes Medication Review Details: Current Medications Generic Name Dose Route Start Last Admin Trade Name Freq PRN Reason Stop Dose Admin Acetaminophen 650 mg 05/08/19 05:56 05/10/19 13:00 Tylenol PO 650 mg Q6H PRN Administration Mild/Mod Pain Or Temp >/= 101 Albuterol/Ipratrop ium 3 ml 05/09/19 15:00 05/16/19 09:48 Duoneb INHALATION 3 ml Q6H.RESPIRATORY P RN Administration SHORTNESS OF BELINDA TH Aspirin 325 mg 05/10/19 22:40 05/16/19 09:18 Aspirin PO 325 mg DAILY KELLY Administration Atorvastatin Calci um 20 mg 05/10/19 22:40 05/15/19 21:05 Lipitor PO 20 mg BEDTIME KELLY Administration Bumetanide 1 mg 05/14/19 10:15 05/16/19 09:17 Bumex IV 1 mg Q12H KELLY Administration Clopidogrel Bisulf ate 75 mg 05/11/19 09:00 05/16/19 09:19 Plavix PO 75 mg DAILY KELLY Administration Cyanocobalamin 1,000 mcg 05/08/19 10:00 05/16/19 09:53 Vitamin B-12 PO Not Given DAILY KELLY Folic Acid 1 mg 05/08/19 10:00 05/16/19 09:19 Folic Acid PO 1 mg DAILY KELLY Administration Heparin Sodium (Be ef Lung) 0 unit 05/10/19 22:35 05/16/19 06:00 Heparin IV 2,100 unit PRN PRN Administration Heparin weight-ba se protocol Protocol Levofloxacin/Dextr ose 750 mg in 150 mls @ 150 mls/hr 05/11/19 09:00 05/15/19 12:42 Levaquin-D5w IV Infused Q48H KELLY Infusion Protocol Heparin Sodium/Sod ium Chloride 25,000 unit in 50 0 mls @ 0 mls/hr 05/10/19 22:45 05/16/19 11:14 Heparin Drip IV 10.88 unit/kg/hr .Q0M KELLY 22 mls/hr Administration Protocol Per Protocol Dexmedetomidine HC l 400 mcg/ 104 mls @ 0 mls/h r 05/11/19 16:15 05/13/19 20:59 Sodium Chloride IV 0.4 mcg/kg/hr .Q0M KELLY 10.5 mls/hr Administration Protocol Per Protocol Norepinephrine Bit artrate 4 mg 254 mls @ 0 mls/h r 05/11/19 18:15 05/13/19 04:30 / Dextrose IV 4 mcg/min .Q0M KELLY 15.2 mls/hr Titration Protocol Per Protocol Vancomycin HCl 1,0 00 mg/ 250 mls @ 250 mls /hr 05/13/19 14:00 05/15/19 21:32 Sodium Chloride IV Infused Q24H KELLY Infusion Insulin Aspart 0 unit 05/08/19 08:00 05/16/19 11:31 Novolog SUBCUT Not Given TIDWM KELLY Protocol Levothyroxine Sodi um 150 mcg 05/08/19 09:00 05/16/19 09:19 Synthroid PO 150 mcg DAILY KELLY Administration Levothyroxine Sodi um 25 mcg 05/08/19 09:00 05/16/19 09:19 Synthroid PO 25 mcg DAILY KELLY Administration Lorazepam 0.5 mg 05/14/19 16:01 05/16/19 04:19 Ativan IVP 0.5 mg Q4H PRN Administration ANXIETY Metoprolol Tartrat e 25 mg 05/10/19 14:45 05/16/19 09:18 Lopressor PO 25 mg BID KELLY Administration Pantoprazole Sodiu m 40 mg 05/08/19 07:00 05/16/19 09:17 Protonix IVP 40 mg Q12H KELLY Administration Polyethylene Glyco l 17 gm 05/10/19 15:05 05/16/19 09:19 Miralax PO 17 gm DAILY KELLY Administration Potassium Chloride 40 meq 05/10/19 09:00 05/16/19 09:54 Potassium Chlori de Oral Liquid PO Not Given DAILY KELLY Senna/Docusate Sod ium 2 tab 05/10/19 18:00 05/16/19 09:18 Senna-S PO 2 tab BID KELLY Administration Vitals/I&O/Wt Last Vital Signs Temp 97.3 F L 05/16/19 09:03 Pulse 81 05/16/19 10:00 Resp 34 H 05/16/19 10:00 BP 101/52 05/16/19 10:00 Pulse Ox 96 05/16/19 10:00 05/15/19 05/16/19 05/16/19 22:59 06:59 14:59 Intake Total 1097.667 / 1307.667 256.6 / 1564.267 120 / 120 Output Total 1000 / 1000 1500 / 2500 Balance 97.667 / 307.667 -1243.4 / -935.733 120 / 120 Weight last 48 hrs Weight 102.058 kg Weight 101.151 kg Physical Exam Const: COMMON NORMALS: no apparent distress, oriented x3 and alert GENERAL APPEARANCE: appears older than stated age and grossly edematous (Improving) NUTRITIONAL APPEARANCE: obese morbidly obese ORIENTATION/CONSCIOUSNESS: Yes awake OTHER: HENMT: COMMON NORMALS: normocephalic and head/scalp atraumatic HEAD & S CALP: normocephalic and atraumatic Eye: COMMON NORMALS: PERRL, EOMs intact bilaterally and conjunctivae normal CONJUNCTIVA: Yes conjunctivae normal PUPIL: Yes PERRL Neck/C-Spine: COMMON NORMALS: full ROM GENERAL: Yes normal visual inspection and Yes trachea midline Lymph: LYMPHATIC: lymphedema Resp: COMMON NORMALS: normal respiratory effort, no retractions, no use of accessory muscles and clear to auscultation bilaterally EFFORT & INSPECTION: Yes symmetric chest movement and Yes tachypneic AUSCULTATION: clear to auscultation bilaterally Cardio: COMMON NORMALS: regular rate, regular rhythm, S1 normal heart sound and S2 normal heart sound RATE: regular rate RHYTHM: regular rhythm HEART SOUNDS: S1 normal, S2 normal and murmur GI: COMMON NORMALS: normal to inspection, nondistended, normoactive bowel sounds, soft to palpation and non-tender INSPECTION: Yes central obesity PALPATION: Yes soft : BLADDER/KIDNEY EXAM: Yes catheter in place Catheter type (Female): urethral Extremity: COMMON NORMALS: normal to inspection and full ROM GENERAL: Yes edema ( chronic lymphedema, worse on L; gradually improving) Neuro: COMMON NORMALS: oriented x3, moves all extremities, no focal motor deficits and no sensory deficits noted SENSORIUM/ORIENTATION: Yes alert OTHER: -Generally quite weak Psych: COMMON NORMALS: mental status grossly normal, thought process normal, cooperative, affect normal and speech normal SPEECH: Yes normal speech THOUGHT PROCESS: normal thought process Skin: COMMON NORMALS: no jaundice, no petechiae and no mottling OTHER: - Noted intertrigo in pannus, bilateral inguinal areas, gluteal cleft Urinary Catheter Management^: Mann: Cath Placed During This Visit: yes Urethral Indwelling: Yes Reason for Continuing Indwelling Catheter: Accurate Measurement of Urinary Output in Critically Ill Patients Urinary Catheter Date of Insertion: 05/10/19 Urinary Catheter Time of Insertion: 18:00 Data : 05/16/19 05:20 05/16/19 05:20 A&P Assessment and plan (1) Acute respiratory failure with hypoxia: -Required intubation following CODE BLUE, extubated on 05/14 -on diuresis due to anasarca -Has Mann catheter in place, continue to monitor urine output; assess daily for removal -Continue antibiotic treatment with vancomycin and Levaquin; has noted allergy to Zosyn -Imaging consistent with L lung opacity suggestive of pneumonia -Echo: EF=64%, no RWMA, G1DD, mild MR, trace AR -afebrile x >24 hrs, vital signs otherwise stable; continue to monitor -continue to monitor renal function, lytes with diuresis -continue to monitor Is & Os, daily weights -telemetry monitoring -sputum cx: mixed nicho; gram stain negative, noted WBCs -blood cx: prelim negative -continue to monitor respiratory status closely -supplemental oxygen as needed -Neb treatments as needed -noted D-dimer elevation, negative PE, negative DVT -very low suspicion for possible aspiration but if continued fever and/or hemodynamic instability may need to include anaerobic coverage Status: Acute Code(s): J96.01 - Acute respiratory failure with hypoxia (2) NSTEMI (non-ST elevated myocardial infarction): -Noted to have significantly elevated troponins with a delta over 90 which may have precipitated code -Given current need for continued ventilator support, will continue medical management, was already started on a heparin drip, statin, full dose aspirin and Plavix -No acute ischemic changes noted on EKG -Echo done previously as noted below with no noted regional wall motion abnormalities -Continue telemetry monitoring -Will need cardiology evaluation now that she is more stable Status: Acute Code(s): I21.4 - Non-ST elevation (NSTEMI) myocardial infarction (3) Macrocytic anemia: -has chronic macrocytic anemia; has evidence of vitamin B12 and folate deficiency -replacing vitamin B12, folate -also noted evidence of low iron though ferritin is normal -f/u FOBT; had reported black stools -baseline Hg is around 11; continue to monitor H/H closely; has been gradually trending down -on PPI Status: Acute Code(s): D53.9 - Nutritional anemia, unspecified Additional A&P Information -Morbid obesity: BMI-41 kg/m2 -Hx of thyroid cancer s/p thyroidectomy with acquired hypothyroidism; continue levothyroxine -HTN -GEOVANNI -GERD; on PPI -NIDDM type II; A1c-5.5; accuchecks, ISS -has significant bilateral LE lymphedema; lymphedema wraps -DELLA on CKD stage 2; baseline Cr around 0.9; likely due to diuresis. Continue to monitor renal function -Intertrigo involving pannus, bilateral inguinal areas, gluteal cleft; interdry, frequent repositioning, keep areas clean and dry -ST evaluation done for swallow; on mechanical soft diet with thin liquids -PT/OT evaluations appreciated -GI ppx with PPI -DVT ppx with SCDs; no AC due to bleeding risk -Dispo: home vs. SNF -Code status: FULL code -continue ICU care due to need for continued close monitoring of respiratory status; low threshold for decompensation Attestations Medical Necessity Statement*: Patient requires hospitalization for continued management of acute CHF exacerbation, pneumonia, NSTEMI. Time Spent in Patient Care: Greater than 35 minutes (>than 50% of time spent in counselling and/or direct pt care on unit) . Coding Level of Care Code Acute Lunch Truck Driver for Idania Fwd Exam Comprehensive Diagnoses Acute respiratory failure with hypoxia J96.01 NSTEMI (non-ST elevated myocardial infarction) I21.4 Macrocytic anemia D53.9
[2019-05-16 12:23] LABS: Partial Thromboplastin Time 55.4 SECONDS (23.9-36.7)
--- NOTE | 2019-05-16 13:43 | PC.CHAP ---
Pastoral Care Encounter/Spiritual Assessment Type of Contact [] Declined quick sketch artist visit [] Patient/Family/Request visit [] Outpatient visit [] Follow-up visit [] Physician referral [] Code/Alert [x] Routine visit [] Staff referral [] Actively dying [] Patient sleeping [] Family support [] [] Out of room [] Palliative care [] [] Receiving care in room [] Pre-surgical visit [] Trauma [x] Long length of stay [x] ICU visit [] Other: Relational/Emotional Strength [x] Patient feels connected with others/family/visitors/staff [] Distress [] Loneliness/isolation [] Abandonment Spirituality of Patient [] Person of Jaky [] Attends Latter-Day of their Jaky [] Believes in Prayer [] Reads Bible or Cheondoism materials [] There are Spiritual issues to be addressed Investment Representative Interventions [] Prayer [x] Active listening [x] Non-anxious presence [x] Spiritual/emotional support [] Crisis/trauma care [] Spiritual counseling [] Bereavement support [] Provided bereavement packet [] Provided Bible/devotional materials [] Provided toy/stuffed animal, coloring book to patient or family member [] Provided Communion [] Anointing/[place] [] Salvation [x] Completed spiritual assessment [] Other: Impact on Illness or Injury [] Angry [] Fearful [] Anxious [] Often cries [] Exhaustion [] Unable to work [] Unable to attend pentecostalism [] Unable to walk/stand [] Unable to read [] Unable to drive [] Unable to eat/drink [] Unable to sleep [] Unable to be with family [] Patient intubated [] Other: Summary Patient was being fed by a family member when quick sketch artist entered the room. She stated that her clinical research specialist had been there yesterday and prayed for her. Family also stated that they didn't need anything from the chaplains. Time spent with patient 8 minutes
[2019-05-16] MEDS: vancomycin 1,000 MG in sodium chloride 0.9% 250 ML 250 MG IV (13:49)
[2019-05-16 16:49] LABS: Glucose Point of Care 326 mg/dL (70-110)
[2019-05-16 17:33] LABS: Partial Thromboplastin Time 60.3 SECONDS (23.9-36.7)
[2019-05-16] MEDS: atorvastatin 40 mg Tablet 20 MG PO (21:33)
[2019-05-17] VITALS (19 sets, daily range): BP systolic 116–182; BP diastolic 49–105; PULSE 79–98; RESP 6–43; TEMP 36.6–36.8; O2SAT 93–100
[2019-05-17 00:08] LABS: Partial Thromboplastin Time 52.1 SECONDS (23.9-36.7)
[2019-05-17] MEDS: heparin 5,000 unit/mL INJ 1 mL IV (02:36)
--- NOTE | 2019-05-17 02:46 | PC.NURSE ---
pt refusing to wear bipap, requesting to go home of snf. respiratory at bedside. pt placed on 5 L nc at this time . nahed canela rn.
[2019-05-17] MEDS: LORazepam 2 mg/mL INJ 1 mL 0.5 MG IVP ×2 (03:02→20:57)
--- NOTE | 2019-05-17 03:02 | PC.ADMIT ---
NO [id number] Admission Note: The patient,Michelle Becerra,74 y/o, was given written information regarding hospital policies, unit procedures and contact persons. Patient's smoking status: never smoked. Vital Signs - 8 hr 05/16/19 20:00 05/16/19 21:37 05/16/19 22:00 Temperature 98.1 F Pulse Rate 83 82 78 Respiratory Rate 36 H 25 H 22 H Blood Pressure 153/54 134/82 Pulse Oximetry 93 97 98 05/16/19 23:30 05/17/19 00:00 05/17/19 02:00 Temperature 98.1 F 97.9 F Pulse Rate 98 98 88 Respiratory Rate 22 H 34 H Blood Pressure 134/82 157/105 Pulse Oximetry 98 98 98 [id number]
[2019-05-17] MEDS: ipratropium-albuterol 3 mL Neb INHALATION ×4 (04:23→20:38)
[2019-05-17 04:59] LABS: Basophils % 0.2 %; Eosinophils # 0.1 10^3/uL (0.0-0.8); Eosinophils % 2.2 %; Hematocrit 27.1 % (37.0-47.0); Hemoglobin 8.1 g/dL (11.5-15.3); Lymphocytes # 0.3 10^3/uL (0.8-4.8); Lymphocytes % 6.1 %; Mean Corpuscular HGB Conc 29.9 g/dL (30.0-36.0); Mean Corpuscular Hemoglobin 31.9 pg (28.0-34.0); Mean Corpuscular Volume 106.7 fL (81-99); Mean Platelet Volume 9.6 fL (7.4-10.4); Monocytes # 0.4 10^3/uL (0.2-0.9); Monocytes % 8.1 %; Neutrophils % 81.8 %; Nucleated Red Blood Cells % 0 %; Platelet Count 337 10^3/cmm (130-400); Red Blood Count 2.54 10^6/uL (4.1-5.3); Red Cell Distribution Width 20.3 % (12.1-15.1); White Blood Count 4.9 10^3/uL (4.0-10.0)
[2019-05-17 05:10] LABS: Blood Urea Nitrogen 26 mg/dL (8-23); Calcium 7.1 mg/dL (8.5-10.5); Carbon Dioxide 29 mmol/L (22-29); Chloride 105 mmol/L (98-107); Glucose 126 mg/dL (65-115); Osmolality Calculated 300 mOsm/kg (285-295); Sodium 146 mmol/L (136-145)
[2019-05-17 05:53] LABS: Partial Thromboplastin Time 88.4 SECONDS (23.9-36.7)
[2019-05-17 07:11] LABS: Glucose Point of Care 111 mg/dL (70-110)
[2019-05-17] MEDS: sennosides-docusate Tablet 2 TAB PO ×2 (08:01→17:24)
[2019-05-17] MEDS: bumetanide 0.25 mg/mL SDV 10 mL 1 MG IV ×2 (08:01→20:57)
[2019-05-17] MEDS: metoprolol tartrate 25 mg Tablet PO ×2 (08:01→17:24)
[2019-05-17] MEDS: folic acid 1 mg Tablet PO (08:01)
[2019-05-17] MEDS: levothyroxine 150 mcg Tablet PO (08:01)
[2019-05-17] MEDS: clopidogrel 75 mg Tablet PO (08:01)
[2019-05-17] MEDS: polyethylene glycol 3350 Pkt 17 gm PO (08:01)
[2019-05-17] MEDS: aspirin 325 mg Tablet PO (08:01)
[2019-05-17] MEDS: levothyroxine 25 mcg Tablet PO (08:01)
[2019-05-17] MEDS: pantoprazole 40 mg SDV IVP ×2 (08:02→20:56)
[2019-05-17] MEDS: levofloxacin-dextrose 5 % 750 MG/150 ML PREMIX 150 MG IV (08:15)
[2019-05-17] MEDS: cyanocobalamin 1,000 mcg Tablet 1000 MCG PO (09:21)
[2019-05-17 09:24] LABS: Partial Thromboplastin Time 72.7 SECONDS (23.9-36.7)
[2019-05-17 11:10] LABS: Glucose Point of Care 137 mg/dL (70-110)
--- NOTE | 2019-05-17 12:18 | P.PN_ITS ---
Subjective Subjective: Interval history: Patient had 1100 mL urine output overnight, has been maintained on 5 L nasal cannula with saturation in the high 90s. A.m. labs noted, renal function slowly improving. Slight drop in hemoglobin from 8.4-8.1 today. Patient seen earlier this morning, sitting in chair, family at bedside, seems to be in good spirits, appetite remains mediocre. Worked better with physical therapy today. Agreeable to SNF placement. Seen later in the afternoon, seems to be struggling to catch her breath, switched to BiPAP and breathing more comfortably. Case discussed with Dr. Turner who will see the patient later today. Medications: Reviewed: Yes Medication Review Details: Current Medications Generic Name Dose Route Start Last Admin Trade Name Freq PRN Reason Stop Dose Admin Acetaminophen 650 mg 05/08/19 05:56 05/10/19 13:00 Tylenol PO 650 mg Q6H PRN Administration Mild/Mod Pain Or Temp >/= 101 Albuterol/Ipratrop ium 3 ml 05/09/19 15:00 05/17/19 08:33 Duoneb INHALATION 3 ml Q6H.RESPIRATORY P RN Administration SHORTNESS OF BELINDA TH Aspirin 325 mg 05/10/19 22:40 05/17/19 08:01 Aspirin PO 325 mg DAILY KELLY Administration Atorvastatin Calci um 20 mg 05/10/19 22:40 05/16/19 21:33 Lipitor PO 20 mg BEDTIME KELLY Administration Bumetanide 1 mg 05/14/19 10:15 05/17/19 08:01 Bumex IV 1 mg Q12H KELLY Administration Clopidogrel Bisulf ate 75 mg 05/11/19 09:00 05/17/19 08:01 Plavix PO 75 mg DAILY KELLY Administration Cyanocobalamin 1,000 mcg 05/08/19 10:00 05/17/19 09:21 Vitamin B-12 PO 1,000 mcg DAILY KELLY Administration Folic Acid 1 mg 05/08/19 10:00 05/17/19 08:01 Folic Acid PO 1 mg DAILY KELLY Administration Heparin Sodium (Be ef Lung) 0 unit 05/10/19 22:35 05/17/19 02:36 Heparin IV 2,100 unit PRN PRN Administration Heparin weight-ba se protocol Protocol Levofloxacin/Dextr ose 750 mg in 150 mls @ 150 mls/hr 05/11/19 09:00 05/17/19 08:15 Levaquin-D5w IV 150 mls/hr Q48H KELLY Administration Protocol Heparin Sodium/Sod ium Chloride 25,000 unit in 50 0 mls @ 0 mls/hr 05/10/19 22:45 05/17/19 02:44 Heparin Drip IV 11.87 unit/kg/hr .Q0M KELLY 24 mls/hr Titration Protocol Per Protocol Dexmedetomidine HC l 400 mcg/ 104 mls @ 0 mls/h r 05/11/19 16:15 05/13/19 20:59 Sodium Chloride IV 0.4 mcg/kg/hr .Q0M KELLY 10.5 mls/hr Administration Protocol Per Protocol Norepinephrine Bit artrate 4 mg 254 mls @ 0 mls/h r 05/11/19 18:15 05/13/19 04:30 / Dextrose IV 4 mcg/min .Q0M KELLY 15.2 mls/hr Titration Protocol Per Protocol Vancomycin HCl 1,0 00 mg/ 250 mls @ 250 mls /hr 05/13/19 14:00 05/16/19 14:49 Sodium Chloride IV Infused Q24H KELLY Infusion Insulin Aspart 0 unit 05/08/19 08:00 05/17/19 11:09 Novolog SUBCUT Not Given TIDWM KELLY Protocol Levothyroxine Sodi um 150 mcg 05/08/19 09:00 05/17/19 08:01 Synthroid PO 150 mcg DAILY KELLY Administration Levothyroxine Sodi um 25 mcg 05/08/19 09:00 05/17/19 08:01 Synthroid PO 25 mcg DAILY KELLY Administration Lorazepam 0.5 mg 05/14/19 16:01 05/17/19 03:02 Ativan IVP 0.5 mg Q4H PRN Administration ANXIETY Metoprolol Tartrat e 25 mg 05/10/19 14:45 05/17/19 08:01 Lopressor PO 25 mg BID KELLY Administration Pantoprazole Sodiu m 40 mg 05/08/19 07:00 05/17/19 08:02 Protonix IVP 40 mg Q12H KELLY Administration Polyethylene Glyco l 17 gm 05/10/19 15:05 05/17/19 08:01 Miralax PO 17 gm DAILY KELLY Administration Potassium Chloride 40 meq 05/10/19 09:00 05/17/19 08:14 Potassium Chlori de Oral Liquid PO Not Given DAILY KELLY Senna/Docusate Sod ium 2 tab 05/10/19 18:00 05/17/19 08:01 Senna-S PO 2 tab BID KELLY Administration Vitals/I&O/Wt Last Vital Signs Temp 98.3 F 05/17/19 08:00 Pulse 83 05/17/19 10:00 Resp 28 H 05/17/19 10:00 BP 128/61 05/17/19 10:00 Pulse Ox 96 05/17/19 10:00 05/16/19 05/17/19 05/17/19 22:59 06:59 14:59 Intake Total 341 / 711 240 / 240 Output Total 750 / 750 1100 / 1850 Balance -750 / -380 -759 / -1139 240 / 240 Weight last 48 hrs Weight 101.877 kg Weight 102.058 kg Physical Exam Const: COMMON NORMALS: no apparent distress, oriented x3 and alert GENERAL APPEARANCE: appears older than stated age and grossly edematous (Improving) NUTRITIONAL APPEARANCE: obese morbidly obese ORIENTATION/CONSCIOUSNESS: Yes awake OTHER: HENMT: COMMON NORMALS: normocephalic and head/scalp atraumatic HEAD & SCALP: normocephalic and atraumatic Eye: COMMON NORMALS: PERRL, EOMs intact bilaterally and conjunctivae normal CONJUNCTIVA: Yes conjunctivae normal PUPIL: Yes PERRL Neck/C-Spine: COMMON NORMALS: full ROM GENERAL: Yes normal visual inspection and Yes trachea midline Lymph: LYMPHATIC: lymphedema Resp: COMMON NORMALS: normal respiratory effort, no retractions, no use of accessory muscles and clear to auscultation bilaterally EFFORT & INSPECTION: Yes symmetric chest movement and Yes tachypneic AUSCULTATION: clear to auscultation bilaterally and crackles Cardio: COMMON NORMALS: regular rate, regular rhythm, S1 normal heart sound and S2 normal heart sound RATE: regular rate RHYTHM: regular rhythm HEART SOUNDS: S1 normal, S2 normal and murmur GI: COMMON NORMALS: normal to inspection, nondistended, normoactive bowel sounds, soft to palpation and non-tender INSPECTION: Yes central obesity PALPATION: Yes soft : BLADDER/KIDNEY EXAM: Yes catheter in place Catheter type (Female): urethral Extremity: COMMON NORMALS: normal to inspection and full ROM GENERAL: Yes edema ( chronic lymphedema, worse on L; gradually improving) Neuro: COMMON NORMALS: oriented x3, moves all extremities, no focal motor deficits and no sensory deficits noted SENSORIUM/ORIENTATION: Yes alert OTHER: -Generally quite weak Psych: COMMON NORMALS: mental status grossly normal, thought process normal, cooperative, affect normal and speech normal SPEECH: Yes normal speech THOUGHT PROCESS: normal thought process Skin: COMMON NORMALS: no jaundice, no petechiae and no mottling OTHER: - Noted intertrigo in pannus, bilateral inguinal areas, gluteal cleft Urinary Catheter Management^: Mann: Cath Placed During This Visit: yes Urethral Indwelling: Yes Reason for Continuing Indwelling Catheter: Accurate Measurement of Urinary Output in Critically Ill Patients Urinary Catheter Date of Insertion: 05/10/19 Urinary Catheter Time of Insertion: 18:00 Data : 05/17/19 04:20 05/17/19 04:20 A&P Assessment and plan (1) Acute respiratory failure with hypoxia: -Required intubation following CODE BLUE, extubated on 05/14 -on diuresis due to anasarca -Has Mann catheter in place, continue to monitor urine output; assess daily for removal -Continue antibiotic treatment with vancomycin and Levaquin; has noted allergy to Zosyn -Imaging consistent with L lung opacity suggestive of pneumonia -Echo: EF=64%, no RWMA, G1DD, mild MR, trace AR -afebrile x >24 hrs, vital signs otherwise stable; continue to monitor -continue to monitor renal function, lytes with diuresis -continue to monitor Is & Os, daily weights -telemetry monitoring -sputum cx: mixed nicho; gram stain negative, noted WBCs -blood cx: prelim negative -continue to monitor respiratory status closely -supplemental oxygen as needed -Neb treatments as needed -noted D-dimer elevation, negative PE, negative DVT -very low suspicion for possible aspiration but if continued fever and/or hemodynamic instability may need to include anaerobic coverage Status: Acute Code(s): J96.01 - Acute respiratory failure with hypoxia (2) NSTEMI (non-ST elevated myocardial infarction): -Noted to have significantly elevated troponins with a delta over 90 which may have precipitated code -Given current need for continued ventilator support, will continue medical management, was already started on a heparin drip, statin, full dose aspirin and Plavix -No acute ischemic changes noted on EKG -Echo done previously as noted below with no noted regional wall motion abnormalities -Continue telemetry monitoring -Will need cardiology evaluation now that she is more stable Status: Acute Code(s): I21.4 - Non-ST elevation (NSTEMI) myocardial infarction (3) Macrocytic anemia: -has chronic macrocytic anemia; has evidence of vitamin B12 and folate deficiency -replacing vitamin B12, folate -also noted evidence of low iron though ferritin is normal -f/u FOBT; had reported black stools -baseline Hg is around 11; continue to monitor H/H closely; has been gradually trending down -on PPI Status: Acute Code(s): D53.9 - Nutritional anemia, unspecified Additional A&P Information -Morbid obesity: BMI-41 kg/m2 -Hx of thyroid cancer s/p thyroidectomy with acquired hypothyroidism; continue levothyroxine -HTN -GEOVANNI -GERD; on PPI -NIDDM type II; A1c-5.5; accuchecks, ISS -has significant bilateral LE lymphedema; lymphedema wraps -DELLA on CKD stage 2; baseline Cr around 0.9; likely due to diuresis. Continue to monitor renal function -Intertrigo involving pannus, bilateral inguinal areas, gluteal cleft; interdry, frequent repositioning, keep areas clean and dry -ST evaluation done for swallow; on mechanical soft diet with thin liquids -PT/OT evaluations appreciated -GI ppx with PPI -DVT ppx with SCDs; no AC due to bleeding risk -Dispo: home vs. SNF -Code status: FULL code -continue ICU care due to need for continued close monitoring of respiratory status; low threshold for decompensation Attestations Medical Necessity Statement*: Patient requires hospitalization for continued management of NSTEMI, pending cardiology evaluation, continue diuresis. Time Spent in Patient Care: Greater than 35 minutes (>than 50% of time spent in counselling and/or direct pt care on unit) . Critical Care Time: The high probability of a clinically significant, sudden or life threatening deterioration of the patient's [cardiovascular, respiratory] system(s) required my full and direct attention, intervention and personal management. The critical care time is as shown. This time is in addition to time spent performing any reported procedures but includes the following: [x] Data and vital sign review and interpretation [x] Patient assessment, examination and intervention [x] Documentation [x] Medication orders and management Critical Care Time (min): 20 Coding Level of Care Code Acute Customer Insight Analyst for g Fwd Exam Comprehensive Diagnoses Acute respiratory failure with hypoxia J96.01 NSTEMI (non-ST elevated myocardial infarction) I21.4 Macrocytic anemia D53.9
[2019-05-17] MEDS: heparin drip 25,000 UNIT/500 ML PREMIX 24 UNIT IV (13:20)
[2019-05-17] MEDS: vancomycin 1,000 MG in sodium chloride 0.9% 250 ML 250 MG IV (13:26)
[2019-05-17 15:00] LABS: Partial Thromboplastin Time 57.8 SECONDS (23.9-36.7)
--- NOTE | 2019-05-17 15:19 | DCPLANNER ---
Pg 2 of IM updated and reviewed with pt. She seems more concerned with going back to bed. Copy provided.
--- NOTE | 2019-05-17 15:21 | PC.CHAP ---
Pastoral Care Encounter/Spiritual Assessment Type of Contact [] Declined center medical and lab director visit [] Patient/Family/Request visit [] Outpatient visit [] Follow-up visit [] Physician referral [] Code/Alert [] Routine visit [] Staff referral [] Actively dying [x] Patient sleeping [] Family support [] [] Out of room [] Palliative care [] [] Receiving care in room [] Pre-surgical visit [] Trauma [] Long length of stay [] ICU visit [] Other: Relational/Emotional Strength [] Patient feels connected with others/family/visitors/staff [] Distress [] Loneliness/isolation [] Abandonment Spirituality of Patient [] Person of Jaky [] Attends Roman Catholic of their Jaky [] Believes in Prayer [] Reads Bible or Druze materials [] There are Spiritual issues to be addressed 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 [] Prayer [] Active listening [] Non-anxious presence [] Spiritual/emotional support [] Crisis/trauma care [] Spiritual counseling [] Bereavement support [] Provided bereavement packet [] Provided Bible/devotional materials [] Provided toy/stuffed animal, coloring book to patient or family member [] Provided Communion [] Anointing/[place] [] Salvation [] Completed spiritual assessment [] Other: Impact on Illness or Injury [] Angry [] Fearful [] Anxious [] Often cries [] Exhaustion [] Unable to work [] Unable to attend religious [] Unable to walk/stand [] Unable to read [] Unable to drive [] Unable to eat/drink [] Unable to sleep [] Unable to be with family [] Patient intubated [] Other: Summary Time spent with patient
[2019-05-17 17:20] LABS: Glucose Point of Care 125 mg/dL (70-110)
--- NOTE | 2019-05-17 19:52 | PC.NURSE ---
bedside report rcvd at this time. vss per cm . dr. castillo at bedside for assessment . pt encouraged to wear bipap per md. lungs c coarse wheezes and crackles noted. guillen to csd c dark yellow urine. fariba lopez.
--- NOTE | 2019-05-17 19:57 | PM.CONSULT ---
Providers/Reason For Consult Consulting Physican/Specialty*: Dr. Turner, Cardiology Reason for Consult*: NSTEMI Attending Physician: Maxine Edge MD History of Present Illness History of Present Illness Michelle Becerra is a 74 year old female with past medical history of thyroid cancer status post thyroidectomy, post surgical hypothyroidism, type 2 diabetes mellitus, hypertension, obstructive sleep apnea, GERD. She presented to the emergency room with complaints of shortness of breath, cough, orthopnea, paroxysmal nocturnal dyspnea. No past history of CAD, ME or CHF. CTA was negative for PE. She was admitted for CHF exacerbation and pneumonia. On 05/10/19, she went into respiratory distress. She was not verbally responsive, tachycardic on monitor with heart rates in the 120s to 140's with agonal breathing. Patient intubated shortly thereafter and was emperically started on ACS protocol. CXR with pulmonary congestion. She was moved to ICU and eventually extubated on 05/14/19. She is still requiring BiPaP and is volume overloaded. I have been asked to assisst in further management. Denies chest pain, denies palpitations. Patient lived in a independent care living facility prior to arrival, ambulates with a walker, had a has a daughter who helps her out.No significant ST-T wave changes on EKG. Review of Systems General: Reports: 10 or more systems reviewed and unremarkable except in HPI and below Resp: Reports: shortness of breath, non-productive cough and wheezing Meds/Allergies Home Medications and Allergies Home Medications Medication Instructions Recorded Confirmed Type Aspir-81 81 mg PO DAILY 05/08/19 05/08/19 History Januvia 100 mg PO DAILY 05/08/19 05/08/19 History acetaminophen 500 mg PO Q6H 05/08/19 05/09/19 History fenofibrate 48 mg PO DAILY 05/08/19 05/08/19 History levothyroxine 175 mcg PO DAILY 05/08/19 05/08/19 History omeprazole 40 mg PO DAILY 05/08/19 05/08/19 History Allergies Allergy/AdvReac Type Severity Reaction Status Date / Time piperacillin [From Zosyn] Allergy ALGY-Rash Verified 05/08/19 01:41 tazobactam [From Zosyn] Allergy ALGY-Rash Verified 05/08/19 01:41 Current Medications Current Medications Generic Name Dose Route Start Last Admin Trade Name Freq PRN Reason Stop Dose Admin Acetaminophen 650 mg 05/08/19 05:56 05/10/19 13:00 Tylenol PO 650 mg Q6H PRN Administration Mild/Mod Pain Or Temp >/= 101 Albuterol/Ipratropium 3 ml 05/09/19 15:00 05/17/19 14:30 Duoneb INHALATION 3 ml Q6H.RESPIRATORY PRN Administration SHORTNESS OF BREATH Aspirin 325 mg 05/10/19 22:40 05/17/19 08:01 Aspirin PO 325 mg DAILY KELLY Administration Atorvastatin Calcium 20 mg 05/10/19 22:40 05/16/19 21:33 Lipitor PO 20 mg BEDTIME KELLY Administration Bumetanide 1 mg 05/14/19 10:15 05/17/19 08:01 Bumex IV 1 mg Q12H KELLY Administration Clopidogrel Bisulfate 75 mg 05/11/19 09:00 05/17/19 08:01 Plavix PO 75 mg DAILY KELLY Administration Cyanocobalamin 1,000 mcg 05/08/19 10:00 05/17/19 09:21 Vitamin B-12 PO 1,000 mcg DAILY KELLY Administration Folic Acid 1 mg 05/08/19 10:00 05/17/19 08:01 Folic Acid PO 1 mg DAILY KELLY Administration Heparin Sodium (Beef Lung) 0 unit 05/10/19 22:35 05/17/19 02:36 Heparin IV 2,100 unit PRN PRN Administration Heparin weight-base protocol Protocol Levofloxacin/Dextrose 750 mg in 150 mls @ 150 mls/hr 05/11/19 09:00 05/17/19 08:15 Levaquin-D5w IV 150 mls/hr Q48H KELLY Administration Protocol Heparin Sodium/Sodium Chloride 25,000 unit in 500 mls @ 0 mls/hr 05/10/19 22:45 05/17/19 13:20 Heparin Drip IV 11.87 unit/kg/hr .Q0M KELLY 24 mls/hr Administration Protocol Per Protocol Dexmedetomidine HCl 400 mcg/ 104 mls @ 0 mls/hr 05/11/19 16:15 05/13/19 20:59 Sodium Chloride IV 0.4 mcg/kg/hr .Q0M KELLY 10.5 mls/hr Administration Protocol Per Protocol Norepinephrine Bitartrate 4 mg 254 mls @ 0 mls/hr 05/11/19 18:15 05/13/19 04:30 / Dextrose IV 4 mcg/min .Q0M KELLY 15.2 mls/hr Titration Protocol Per Protocol Vancomycin HCl 1,000 mg/ 250 mls @ 250 mls/hr 05/13/19 14:00 05/17/19 13:26 Sodium Chloride IV 250 mls/hr Q24H KELLY Administration Insulin Aspart 0 unit 05/08/19 08:00 05/17/19 17:18 Novolog SUBCUT Not Given TIDWM KELLY Protocol Levothyroxine Sodium 150 mcg 05/08/19 09:00 05/17/19 08:01 Synthroid PO 150 mcg DAILY KELLY Administration Levothyroxine Sodium 25 mcg 05/08/19 09:00 05/17/19 08:01 Synthroid PO 25 mcg DAILY KELLY Administration Lorazepam 0.5 mg 05/14/19 16:01 05/17/19 03:02 Ativan IVP 0.5 mg Q4H PRN Administration ANXIETY Metoprolol Tartrate 25 mg 05/10/19 14:45 05/17/19 17:24 Lopressor PO 25 mg BID KELLY Administration Pantoprazole Sodium 40 mg 05/08/19 07:00 05/17/19 08:02 Protonix IVP 40 mg Q12H KELLY Administration Polyethylene Glycol 17 gm 05/10/19 15:05 05/17/19 08:01 Miralax PO 17 gm DAILY KELLY Administration Potassium Chloride 40 meq 05/10/19 09:00 05/17/19 08:14 Potassium Chloride Oral Liquid PO Not Given DAILY KELLY Senna/Docusate Sodium 2 tab 05/10/19 18:00 05/17/19 17:24 Senna-S PO 2 tab BID KELLY Administration PFSH Acute PFSH: Social History Smoking and tobacco status: never smoked Alcohol intake: never Substance/Drug Use: never Vitals/I&O/Wt Last Vital Signs Temp 98.3 F 05/17/19 08:00 Pulse 91 05/17/19 18:00 Resp 34 H 05/17/19 18:00 BP 127/87 05/17/19 18:00 Pulse Ox 96 05/17/19 18:00 0205/17/19 05/17/19 06:59 14:59 22:59 Intake Total 341 / 711 499 / 499 Output Total 1100 / 1850 700 / 700 Balance -759 / -1139 499 / 499 -700 / -201 Weight last 48 hrs Weight 224 lb 9.6 oz Weight 225 lb Physical Exam Const: COMMON NORMALS: alert (in respiratory distress with frequent coughing and tachypnia) GENERAL APPEARANCE: cooperative and comfortable HENMT: COMMON NORMALS: normocephalic, head/scalp atraumatic and moist oral mucous membranes HEAD & SCALP: normocephalic and atraumatic FACE & SINUS: no facial edema NOSE: septum normal and no nasal discharge; no epistaxis Eye: COMMON NORMALS: PERRL, EOMs intact bilaterally, conjunctivae normal and no scleral icterus GENERAL EYE: normal appearance of both eyes CONJUNCTIVA: Yes conjunctivae normal SCLERA: sclerae normal PUPIL: Yes PERRL Neck/C-Spine: COMMON NORMALS: supple and no JVD GENERAL: No mass CAROTIDS: Yes normal carotid upstroke Chest: CHEST: No rash Resp: EFFORT & INSPECTION: Yes tachypneic, Yes respiratory distress, No pursed lip breathing, No labored and Yes actively coughing AUSCULTATION: no crackles, no rales, no rhonchi, no wheezes and vesicular breath sounds Cardio: COMMON NORMALS: no JVD, regular rate, regular rhythm, S1 normal heart sound, S2 normal heart sound and peripheral pulses 2+ throughout PALPATION: normal PMI RATE: regular rate RHYTHM: regular rhythm HEART SOUNDS: S1 normal, S2 normal, no click, no gallops and no murmurs BRUITS: no carotid bruits PERIPHERAL PULSES: pulses 2+ throughout, radial pulses present, posterior tibial pulses present and dorsalis pedis pulses present GI: COMMON NORMALS: soft to palpation AUSCULTATION: Yes normoactive bowel sounds PALPATION: Yes soft, No tender, No guarding, No rigid and No ascites present PERCUSSION: tympanic to percussion Extremity: GENERAL: No calf tenderness, No clubbing, No cyanosis, Yes edema and No pallor Neuro: COMMON NORMALS: CN's II-XII intact bilaterally and no focal motor deficits SENSORIUM/ORIENTATION: Yes alert (in respiratory distress with frequent coughing and tachypnia) Psych: COMMON NORMALS: speech normal SPEECH: Yes normal speech Urinary Catheter Management^: Mann: Cath Placed During This Visit: yes Urethral Indwelling: Yes Reason for Continuing Indwelling Catheter: Accurate Measurement of Urinary Output in Critically Ill Patients Urinary Catheter Date of Insertion: 05/10/19 Urinary Catheter Time of Insertion: 18:00 Data Other Data: Other data: PFTs in 12/17/2014 which showed an FEV1 over FVC of 67.92, FEV1 of 1.09, FVC of 1.6. Laboratory Tests 05/08/19 05/08/19 05/08/19 02:05 02:05 04:04 Hemoglobin A1c Troponin T Gen 5 n g/L Troponin T Baselin e 34 H Troponin T 120 Min [place] 35.90 H NT-Pro-B Natriuret Pep 1382 H Triglycerides Cholesterol LDL Cholesterol, C alc HDL Cholesterol 05/09/19 05/09/19 05/10/19 06:59 06:59 20:04 Hemoglobin A1c 5.5 Troponin T Gen 5 n g/L 286 H* Troponin T Baselin e Troponin T 120 Min [place] NT-Pro-B Natriuret Pep Triglycerides 128 Cholesterol 140 LDL Cholesterol, C alc 66 HDL Cholesterol 48 L 05/11/19 05/11/19 00:50 02:40 Hemoglobin A1c Troponin T Gen 5 n g/L Troponin T Baselin e 1007 H* Troponin T 120 Min [place] 915.00 H NT-Pro-B Natriuret Pep Triglycerides Cholesterol LDL Cholesterol, C alc HDL Cholesterol TTE (05/08/2019) CONCLUSIONS 1-Normal left ventricular cavity size. Normal left ventricular systolic function. No regional wall motion abnormalities. Left ventricular ejection fraction is estimated at 64 %. Grade I/IV diastolic dysfunction (abnormal relaxation filling pattern), normal to mildly elevated filling pressures. 2-Moderately increased left atrial size. 3-Moderately thickened mitral valve. No mitral valve stenosis. Mild mitral valve regurgitation. 4-Mild aortic valve calcification. No aortic valve stenosis. Trace aortic valve regurgitation. 5-Trace tricuspid valve regurgitation. 6-There is no pericardial effusion. 7-Pulmonary artery systolic pressure is within normal limits. 8-No significant change since the prior echocardiogram study of 06/22/2014. CXR (05/13/19) 1. Right basilar atelectasis has cleared. 2. No change in left lung opacity which may represent pneumonia. 3. No change in multiple tubes. EKG SINUS RHYTHM WITH FREQUENT SUPRAVENTRICULAR PREMATURE COMPLEXES MODERATE ST DEPRESSION [0.05+ mV ST DEPRESSION] Compared to ECG 05/08/2019 10:10:20 ST (T wave) deviation now present Atrial fibrillation no longer present A&P Assessment and plan (1) Acute respiratory failure with hypoxia: Extubated to BiPaP. BiPaP dependent presently. -Management as per Dr. edge. Status: Acute Code(s): J96.01 - Acute respiratory failure with hypoxia (2) NSTEMI (non-ST elevated myocardial infarction): She has already been treated for NSTEMI for last 9-10 days. In setting of significant respiratory distress type 2 NSTEMI is a possibility as well. -Continue ASA, plavix, statin and beta masha. May stop heparin now (already been on it for a week now). -Plan for stress test as an outpatient. Status: Acute Code(s): I21.4 - Non-ST elevation (NSTEMI) myocardial infarction (3) Hypertension: Status: Acute Qualifiers: Hypertension type: essential hypertension Qualified Code(s): I10 - Essential (primary) hypertension Code(s): I10 - Essential (primary) hypertension (4) Hypothyroidism: Status: Acute Qualifiers: Hypothyroidism type: postoperative Qualified Code(s): E89.0 - Postprocedural hypothyroidism Code(s): E03.9 - Hypothyroidism, unspecified (5) Macrocytic anemia: Hb dropped from 11.7 to 8.3. -No active bleed. Status: Acute Code(s): D53.9 - Nutritional anemia, unspecified (6) Acute kidney injury: Renal function worsened and is improving now. Status: Acute Code(s): N17.9 - Acute kidney failure, unspecified Additional A&P Information Thank you for allowing me to participate in patient's care. Please feel free to call with questions or concerns. Consult Attestations Medical Necessity Statement: Discharge planning as per primary team. Coding Level of Care Code Acute Strategic Analyst for Chg Fwd Exam Comprehensive Diagnoses Acute respiratory failure with hypoxia J96.01 NSTEMI (non-ST elevated myocardial infarction) I21.4 Hypertension I10 Hypertension type: essential hypertension Hypothyroidism E89.0 Hypothyroidism type: postoperative Macrocytic anemia D53.9 Acute kidney injury N17.9
[2019-05-17 20:33] LABS: Partial Thromboplastin Time 69.6 SECONDS (23.9-36.7)
[2019-05-17 20:34] LABS: Glucose Point of Care 231 mg/dL (70-110)
[2019-05-17] MEDS: atorvastatin 40 mg Tablet 20 MG PO (20:57)
[2019-05-18] VITALS (21 sets, daily range): BP systolic 109–151; BP diastolic 40–95; PULSE 75–95; RESP 18–42; TEMP 36.6–37; O2SAT 91–100
[2019-05-18] MEDS: ipratropium-albuterol 3 mL Neb INHALATION ×4 (01:49→21:14)
[2019-05-18] MEDS: LORazepam 2 mg/mL INJ 1 mL 0.5 MG IVP ×2 (01:50→23:36)
[2019-05-18 03:14] LABS: Anion Gap 15.6 (5-19); Blood Urea Nitrogen 23 mg/dL (8-23); Calcium 7.1 mg/dL (8.5-10.5); Carbon Dioxide 30 mmol/L (22-29); Chloride 104 mmol/L (98-107); Glucose 133 mg/dL (65-115); Osmolality Calculated 301 mOsm/kg (285-295); Potassium 3.6 mmol/L (3.5-5.1); Sodium 146 mmol/L (136-145)
[2019-05-18 03:20] LABS: Partial Thromboplastin Time 64.7 SECONDS (23.9-36.7)
[2019-05-18 03:26] LABS: Basophils % 0.4 %; Eosinophils # 0.1 10^3/uL (0.0-0.8); Eosinophils % 1.9 %; Hemoglobin 8.2 g/dL (11.5-15.3); Lymphocytes # 0.2 10^3/uL (0.8-4.8); Lymphocytes % 5.1 %; Mean Corpuscular HGB Conc 30.4 g/dL (30.0-36.0); Mean Corpuscular Hemoglobin 31.9 pg (28.0-34.0); Mean Corpuscular Volume 105.1 fL (81-99); Mean Platelet Volume 9.9 fL (7.4-10.4); Monocytes # 0.3 10^3/uL (0.2-0.9); Monocytes % 7.1 %; Neutrophils # 3.9 10^3/uL (1.8-7.7); Neutrophils % 82.9 %; Nucleated Red Blood Cells % 0 %; Platelet Count 325 10^3/cmm (130-400); Red Blood Count 2.57 10^6/uL (4.1-5.3); Red Cell Distribution Width 20.1 % (12.1-15.1); White Blood Count 4.7 10^3/uL (4.0-10.0)
[2019-05-18 09:12] LABS: Glucose Point of Care 120 mg/dL (70-110)
[2019-05-18] MEDS: levothyroxine 150 mcg Tablet PO (09:23)
[2019-05-18] MEDS: sennosides-docusate Tablet 2 TAB PO ×2 (09:23→17:20)
[2019-05-18] MEDS: cyanocobalamin 1,000 mcg Tablet 1000 MCG PO (09:23)
[2019-05-18] MEDS: folic acid 1 mg Tablet PO (09:23)
[2019-05-18] MEDS: metoprolol tartrate 25 mg Tablet PO ×2 (09:23→17:20)
[2019-05-18] MEDS: aspirin 325 mg Tablet PO (09:23)
[2019-05-18] MEDS: polyethylene glycol 3350 Pkt 17 gm PO (09:24)
[2019-05-18] MEDS: clopidogrel 75 mg Tablet PO (09:24)
[2019-05-18] MEDS: levothyroxine 25 mcg Tablet PO (09:24)
[2019-05-18] MEDS: pantoprazole 40 mg SDV IVP (09:26)
[2019-05-18] MEDS: bumetanide 0.25 mg/mL SDV 10 mL 1 MG IV (09:26)
--- NOTE | 2019-05-18 11:01 | P.PN_ITS ---
Subjective Subjective: Interval history: AM labs noted, had 900 mL urine output overnight, discontinue heparin drip, vancomycin. Renal function continues to improve. Hemoglobin stable. Patient seen and examined, has maintained her saturation on nasal cannula through most of the day. Appetite has improved today, seems to be in better spirits. Seems excited about prospect of going to SNF. Will switch to oral diuretics. Medications: Reviewed: Yes Medication Review Details: Current Medications Generic Name Dose Route Start Last Admin Trade Name Freq PRN Reason Stop Dose Admin Acetaminophen 650 mg 05/08/19 05:56 05/10/19 13:00 Tylenol PO 650 mg Q6H PRN Administration Mild/Mod Pain Or Temp >/= 101 Albuterol/Ipratrop ium 3 ml 05/09/19 15:00 05/18/19 09:59 Duoneb INHALATION 3 ml Q6H.RESPIRATORY P RN Administration SHORTNESS OF BELINDA TH Aspirin 325 mg 05/10/19 22:40 05/18/19 09:23 Aspirin PO 325 mg DAILY KELLY Administration Atorvastatin Calci um 20 mg 05/10/19 22:40 05/17/19 20:57 Lipitor PO 20 mg BEDTIME KELLY Administration Bumetanide 1 mg 05/14/19 10:15 05/18/19 09:26 Bumex IV 1 mg Q12H KELLY Administration Clopidogrel Bisulf ate 75 mg 05/11/19 09:00 05/18/19 09:24 Plavix PO 75 mg DAILY KELLY Administration Cyanocobalamin 1,000 mcg 05/08/19 10:00 05/18/19 09:23 Vitamin B-12 PO 1,000 mcg DAILY KELLY Administration Folic Acid 1 mg 05/08/19 10:00 05/18/19 09:23 Folic Acid PO 1 mg DAILY KELLY Administration Levofloxacin/Dextr ose 750 mg in 150 mls @ 150 mls/hr 05/11/19 09:00 05/17/19 08:15 Levaquin-D5w IV 150 mls/hr Q48H KELLY Administration Protocol Insulin Aspart 0 unit 05/08/19 08:00 05/18/19 08:56 Novolog SUBCUT Not Given TIDWM KELLY Protocol Levothyroxine Sodi um 150 mcg 05/08/19 09:00 05/18/19 09:23 Synthroid PO 150 mcg DAILY KELLY Administration Levothyroxine Sodi um 25 mcg 05/08/19 09:00 05/18/19 09:24 Synthroid PO 25 mcg DAILY KELLY Administration Lorazepam 0.5 mg 05/14/19 16:01 05/18/19 01:50 Ativan IVP 0.5 mg Q4H PRN Administration ANXIETY Metoprolol Tartrat e 25 mg 05/10/19 14:45 05/18/19 09:23 Lopressor PO 25 mg BID KELLY Administration Pantoprazole [place] m 40 mg 05/08/19 07:00 05/18/19 09:26 Protonix IVP 40 mg Q12H KELLY Administration Polyethylene Glyco l 17 gm 05/10/19 15:05 05/18/19 09:24 Miralax PO 17 gm DAILY KELLY Administration Potassium Chloride 40 meq 05/10/19 09:00 05/17/19 08:14 Potassium Chlori de Oral Liquid PO Not Given DAILY KELLY Senna/Docusate Sod ium 2 tab 05/10/19 18:00 05/18/19 09:23 Senna-S PO 2 tab BID KELLY Administration Vitals/I&O/Wt Last Vital Signs Temp 98 F 05/18/19 08:00 Pulse 95 05/18/19 10:01 Resp 22 H 05/18/19 09:58 BP 128/56 05/18/19 08:00 Pulse Ox 96 05/18/19 09:58 05/17/19 05/18/19 05/18/19 22:59 06:59 14:59 Intake Total 120 / 619 60 / 60 Output Total 700 / 700 900 / 1600 Balance -580 / -81 -900 / -981 60 / 60 Weight last 48 hrs Weight 101.877 kg Physical Exam Const: COMMON NORMALS: no apparent distress, oriented x3 and alert GENERAL APPEARANCE: appears older than stated age NUTRITIONAL APPEARANCE: obese morbidly obese ORIENTATION/CONSCIOUSNESS: Yes awake OTHER: HENMT: COMMON NORMALS: normocephalic and head/scalp atraumatic HEAD & SCALP: normocephalic and atraumatic Eye: COMMON NORMALS: PERRL, EOMs intact bilaterally and conjunctivae normal CONJUNCTIVA: Yes conjunctivae normal PUPIL: Yes PERRL Neck/C-Spine: COMMON NORMALS: full ROM GENERAL: Yes normal visual inspection and Yes trachea midline Lymph: LYMPHATIC: lymphedema Resp: COMMON NORMALS: normal respiratory effort, no retractions and no use of accessory muscles EFFORT & INSPECTION: Yes symmetric chest movement and Yes tachypneic AUSCULTATION: diminished lung sounds Cardio: COMMON NORMALS: regular rate, regular rhythm, S1 normal heart sound and S2 normal heart sound RATE: regular rate RHYTHM: regular rhythm HEART SOUNDS: S1 normal, S2 normal and murmur systolic GI: COMMON NORMALS: normal to inspection, nondistended, normoactive bowel sounds, soft to palpation and non-tender INSPECTION: Yes central obesity PALPATION: Yes soft : BLADDER/KIDNEY EXAM: Yes catheter in place Catheter type (Female): urethral Extremity: COMMON NORMALS: normal to inspection and full ROM GENERAL: Yes edema ( chronic lymphedema, worse on L; gradually improving) Neuro: COMMON NORMALS: oriented x3, moves all extremities, no focal motor deficits and no sensory deficits noted SENSORIUM/ORIENTATION: Yes alert OTHER: -Generally quite weak Psych: COMMON NORMALS: mental status grossly normal, thought process normal, cooperative, affect normal and speech normal SPEECH: Yes normal speech THOUGHT PROCESS: normal thought process Skin: COMMON NORMALS: no jaundice, no petechiae and no mottling OTHER: - Noted intertrigo in pannus, bilateral inguinal areas, gluteal cleft (improving) Urinary Catheter Management^: Mann: Cath Placed During This Visit: yes Urethral Indwelling: Yes Reason for Continuing Indwelling Catheter: Accurate Measurement of Urinary Output in Critically Ill Patients Urinary Catheter Date of Insertion: 05/10/19 Urinary Catheter Time of Insertion: 18:00 Data : 05/18/19 02:40 05/18/19 02:40 A&P Assessment and plan (1) Acute respiratory failure with hypoxia: -Required intubation following CODE BLUE, extubated on 05/14 -on diuresis due to anasarca; switch to oral diuretics -Has Mann catheter in place, continue to monitor urine output; removal today -Continue antibiotic treatment with vancomycin and Levaquin; has noted allergy to Zosyn; d/c Vanc, switch to oral Levaquin -Imaging consistent with L lung opacity suggestive of pneumonia -Echo: EF=64%, no RWMA, G1DD, mild MR, trace AR -afebrile x >24 hrs, vital signs otherwise stable; continue to monitor -continue to monitor renal function, lytes with diuresis -continue to monitor Is & Os, daily weights -telemetry monitoring -sputum cx: mixed nicho; gram stain negative, noted WBCs -blood cx: prelim negative -continue to monitor respiratory status closely -supplemental oxygen as needed -Neb treatments as needed -noted D-dimer elevation, negative PE, negative DVT -very low suspicion for possible aspiration but if continued fever and/or hemodynamic instability may need to include anaerobic coverage; not needed Status: Acute Code(s): J96.01 - Acute respiratory failure with hypoxia (2) NSTEMI (non-ST elevated myocardial infarction): -Noted to have significantly elevated troponins with a delta over 90 which may have precipitated code -Given current need for continued ventilator support, will continue medical management, was already started on a heparin drip, statin, full dose aspirin and Plavix; d/c heparin drip -No acute ischemic changes noted on EKG -Echo done previously as noted below with no noted regional wall motion abnormalities -Continue telemetry monitoring -Cardiology consult by Dr. Turner appreciated; will need outpatient stress testing Status: Acute Code(s): I21.4 - Non-ST elevation (NSTEMI) myocardial infarction (3) Macrocytic anemia: -has chronic macrocytic anemia; has evidence of vitamin B12 and folate deficiency -replacing vitamin B12, folate -also noted evidence of low iron though ferritin is normal -f/u FOBT; had reported black stools -baseline Hg is around 11; continue to monitor H/H closely; has been gradually trending down -on PPI Status: Acute Code(s): D53.9 - Nutritional anemia, unspecified Additional A&P Information -Morbid obesity: BMI-41 kg/m2 -Hx of thyroid cancer s/p thyroidectomy with acquired hypothyroidism; continue levothyroxine -HTN -GEOVANNI -GERD; on PPI -NIDDM type II; A1c-5.5; accuchecks, ISS -has significant bilateral LE lymphedema; lymphedema wraps -DELLA on CKD stage 2; baseline Cr around 0.9; likely due to diuresis. Continue to monitor renal function -Intertrigo involving pannus, bilateral inguinal areas, gluteal cleft; interdry, frequent repositioning, keep areas clean and dry -Deconditioning and generalized weakness; prolonged hospitalization much of which she has spent in bed have led to significant generalized weakness -ST evaluation done for swallow; on mechanical soft diet with thin liquids -PT/OT evaluations appreciated: SNF recommended -GI ppx with PPI -DVT ppx with SCDs; had been on heparin drip which is discontinued -Dispo: has been accepted at [facility] -Code status: FULL code -may consider transfer to floor later today Attestations Medical Necessity Statement*: Patient requires hospitalization for continued management of CHF exacerbation, switched to oral diuretics today; pending appropriate disposition. Time Spent in Patient Care: Greater than 35 minutes (>than 50% of time spent in counselling and/or direct pt care on unit) . Coding Level of Care Code Acute Feed Crusher for g Fwd Exam Comprehensive Diagnoses Acute respiratory failure with hypoxia J96.01 NSTEMI (non-ST elevated myocardial infarction) I21.4 Macrocytic anemia D53.9
--- NOTE | 2019-05-18 11:07 | XR_ITS ---
WS: [id number] XR chest 1V portable [id number] REASON FOR EXAM: f/u on progression of pneumonia FINDINGS: Comparison to previous exam of May 13, 2019 the pneumonia in the left lower lung has c ompletely resolved. There is mild chronic changes from the infiltrates seen. This involves the lingul a segment but no acute pneumonia is noted. The endotracheal tube has been removed as well as the feeding tube. The heart is borderline enlarged with arteriosclerotic changes. A PICC line is seen with the tip in the upper superior vena cava. XR/XR chest 1V portable [id number] IMPRESSION: PICC line seen in the superior vena cava. Resolution of the pneumonia on the left with/residual chronic changes. Arteriosclerotic changes in the arch of the aorta. The endotracheal tube and the feeding tube have been removed.
[2019-05-18 11:18] LABS: Partial Thromboplastin Time 59.8 SECONDS (23.9-36.7)
[2019-05-18 11:51] LABS: Glucose Point of Care 108 mg/dL (70-110)
--- NOTE | 2019-05-18 12:06 | PC.CHAP ---
Pastoral Care Encounter/Spiritual Assessment Type of Contact [] Declined water main inspector visit [] Patient/Family/Request visit [] Outpatient visit [] Follow-up visit [] Physician referral [] Code/Alert [x] Routine visit [] Staff referral [] Actively dying [] Patient sleeping [] Family support [] [] Out of room [] Palliative care [] [] Receiving care in room [] Pre-surgical visit [] Trauma [] Long length of stay [x] ICU visit [] Other: Relational/Emotional Strength [] Patient feels connected with others/family/visitors/staff [] Distress [] Loneliness/isolation [] Abandonment Spirituality of Patient [] Person of Jaky [] Attends Mandaen of their Jaky [] Believes in Prayer [] Reads Bible or Voodoo materials [] There are Spiritual issues to be addressed 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 Interventions [x] Prayer [] Active listening [] Non-anxious presence [] Spiritual/emotional support [] Crisis/trauma care [] Spiritual counseling [] Bereavement support [] Provided bereavement packet [] Provided Bible/devotional materials [] Provided toy/stuffed animal, coloring book to patient or family member [] Provided Communion [] Anointing/Amonate [] Salvation [x] Completed spiritual assessment [] Other: Impact on Illness or Injury [] Angry [] Fearful [] Anxious [] Often cries [] Exhaustion [] Unable to work [] Unable to attend anglican [] Unable to walk/stand [] Unable to read [] Unable to drive [] Unable to eat/drink [] Unable to sleep [] Unable to be with family [] Patient intubated [] Other: Summary Patient looking stronger. Patients spouse on his way for visit. Time spent with patient 15min
[2019-05-18 13:56] LABS: Vancomycin Trough 20.1 ug/mL (10-15)
[2019-05-18] MEDS: FUROsemide 40 mg Tablet PO (15:52)
[2019-05-18 17:04] LABS: Glucose Point of Care 190 mg/dL (70-110)
[2019-05-18] MEDS: pantoprazole DR 40 mg Tablet PO (17:19)
--- NOTE | 2019-05-18 19:46 | P.PN_ITS ---
Subjective Subjective: Interval history: Doing better today, Used NC mostly today, short run of atrial tachycardia on telemetry Vitals/I&O/Wt Last Vital Signs Temp 98.6 F 05/18/19 18:00 Pulse 81 05/18/19 18:00 Resp 42 H 05/18/19 18:00 BP 110/63 05/18/19 18:00 Pulse Ox 93 05/18/19 18:00 05/18/19 05/18/19 05/18/19 06:59 14:59 22:59 Intake Total 300 / 300 240 / 540 Output Total 900 / 1600 Balance -900 / -981 300 / 300 240 / 540 Weight last 48 hrs Weight 216 lb 1.6 oz Weight 224 lb 9.6 oz Physical Exam Narrative: EXAM NARRATIVE: Const COMMON NORMALS: alert (in respiratory distress with frequent coughing and tachypnia) GENERAL APPEARANCE: cooperative and comfortable HENWI COMMON NORMALS: normocephalic, head/scalp atraumatic and moist oral mucous membranes HEAD & SCALP: normocephalic and atraumatic FACE & SINUS: no facial edema NOSE: septum normal and no nasal discharge; no epistaxis Eye COMMON NORMALS: PERRL, EOMs intact bilaterally, conjunctivae normal and no scleral icterus GENERAL EYE: normal appearance of both eyes CONJUNCTIVA: Yes conjunctivae normal SCLERA: sclerae normal PUPIL: Yes PERRL Neck/C-Spine COMMON NORMALS: supple and no JVD GENERAL: No mass CAROTIDS: Yes normal carotid upstroke Chest CHEST: No rash Resp EFFORT & INSPECTION: Yes tachypneic, Yes respiratory distress, No pursed lip breathing, No labored and Yes actively coughing AUSCULTATION: no crackles, no rales, no rhonchi, no wheezes and vesicular breath sounds, decreased bilateral breath sounds at bases Cardio COMMON NORMALS: no JVD, regular rate, regular rhythm, S1 normal heart sound, S2 normal heart sound and peripheral pulses 2+ throughout PALPATION: normal PMI RATE: regular rate RHYTHM: regular rhythm HEART SOUNDS: S1 normal, S2 normal, no click, no gallops and no murmurs BRUITS: no carotid bruits PERIPHERAL PULSES: pulses 2+ throughout, radial pulses present, posterior tibial pulses present and dorsalis pedis pulses present Extremity GENERAL: No calf tenderness, No clubbing, No cyanosis, Yes edema and No pallor Neuro COMMON NORMALS: CN's II-XII intact bilaterally and no focal motor deficits Urinary Catheter Management^: Mann: Cath Placed During This Visit: yes, but has since been removed by the nurse Urethral Indwelling: Yes Reason for Continuing Indwelling Catheter: Decision to DC Catheter Urinary Catheter Date of Insertion: 05/10/19 Urinary Catheter Time of Insertion: 18:00 Date Urinary Catheter Removed: 05/18/19 Time Urinary Catheter Discontinued: 17:12 Data : 05/18/19 02:40 05/18/19 02:40 A&P Assessment and plan (1) Acute respiratory failure with hypoxia: Extubated to BiPaP. BiPaP requirement improved. -Management as per Dr. edge. Status: Acute Code(s): J96.01 - Acute respiratory failure with hypoxia (2) NSTEMI (non-ST elevated myocardial infarction): She has already been treated for NSTEMI for last 9-10 days. In setting of significant respiratory distress type 2 NSTEMI is a possibility as well. -Continue ASA, plavix, statin and beta masha. May stop heparin now (already been on it for a week now). -Plan for stress test as an outpatient. -I will sign off. Follow up outpatient in 3-4 weeks. Status: Acute Code(s): I21.4 - Non-ST elevation (NSTEMI) myocardial infarction (3) Hypertension: Status: Acute Qualifiers: Hypertension type: essential hypertension Qualified Code(s): I10 - Essential (primary) hypertension Code(s): I10 - Essential (primary) hypertension (4) Hypothyroidism: Status: Acute Qualifiers: Hypothyroidism type: postoperative Qualified Code(s): E89.0 - Postp rocedural hypothyroidism Code(s): E03.9 - Hypothyroidism, unspecified (5) Macrocytic anemia: Hb dropped from 11.7 to 8.3. -No active bleed. Status: Acute Code(s): D53.9 - Nutritional anemia, unspecified (6) Acute kidney injury: Renal function worsened and is improving now. Status: Acute Code(s): N17.9 - Acute kidney failure, unspecified Additional A&P Information Thank you for allowing me to participate in patient's care. Please feel free to call with questions or concerns. Attestations Medical Necessity Statement*: Discharge planning as per primary team Coding Level of Care Code Acute Barrel Reamer for g Fwd Diagnoses Acute respiratory failure with hypoxia J96.01 NSTEMI (non-ST elevated myocardial infarction) I21.4 Hypertension I10 Hypertension type: essential hypertension Hypothyroidism E89.0 Hypothyroidism type: postoperative Macrocytic anemia D53.9 Acute kidney injury N17.9
[2019-05-18 20:21] LABS: Glucose Point of Care 116 mg/dL (70-110)
[2019-05-19] VITALS (18 sets, daily range): BP systolic 107–160; BP diastolic 46–88; PULSE 74–102; RESP 15–37; TEMP 36.8; O2SAT 86–99
--- NOTE | 2019-05-19 03:18 | PC.NURSE ---
Dr. Quiroz notified of PICC insertion site being bruised and arm swollen. Notified doctor that PICC line will not flush. Doppler ordered. Will continue to monitor.
--- NOTE | 2019-05-19 03:38 | USCV_ITS ---
Hernan Michelle Age: 74 Gender: F : 1945 Exam Date: 05/19/2019 06:12 Ordering Phys: Sultana Quiroz MD Technologist: Tammy Pineda [place] [facility] [place]ication: PICC OCCLUDED HISTORY: PICC occlusion. PROCEDURES: Examined were the right jugular, subclavian, axillary, brachial, basilic, radial, ulnar and cephalic veins. Serial compression, augmentation maneuvers, and spectral Doppler flow evaluation were performed. FINDINGS: SVT noted in the RIGHT basilic vein at PICC insertion site. All other vessels examined appear free of thrombus at this time. CONCLUSIONS Prelim called to Dr. Quiroz. Also gave verbal prelim to Tony BARROW. SVT RIGHT basilic vein at PICC insertion site. All other vessels RUE are patent. Valdemar Coleman MD (Electronically Signed) Final Date: 19 May 2019 10:23 S
[2019-05-19] MEDS: LORazepam 2 mg/mL INJ 1 mL 0.5 MG IVP ×2 (04:53→22:31)
[2019-05-19 05:49] LABS: Anion Gap 17.5 (5-19); Blood Urea Nitrogen 17 mg/dL (8-23); Calcium 7.2 mg/dL (8.5-10.5); Carbon Dioxide 31 mmol/L (22-29); Chloride 104 mmol/L (98-107); Glucose 112 mg/dL (65-115); Osmolality Calculated 305 mOsm/kg (285-295); Potassium 3.5 mmol/L (3.5-5.1); Sodium 149 mmol/L (136-145)
[2019-05-19 07:32] LABS: Glucose Point of Care 96 mg/dL (70-110)
[2019-05-19] MEDS: ipratropium-albuterol 3 mL Neb INHALATION ×3 (07:55→20:34)
[2019-05-19] MEDS: metoprolol tartrate 25 mg Tablet PO ×2 (09:22→17:42)
[2019-05-19] MEDS: cyanocobalamin 1,000 mcg Tablet 1000 MCG PO (09:22)
[2019-05-19] MEDS: levothyroxine 25 mcg Tablet PO (09:23)
[2019-05-19] MEDS: folic acid 1 mg Tablet PO (09:23)
[2019-05-19] MEDS: sennosides-docusate Tablet 2 TAB PO ×2 (09:23→17:43)
[2019-05-19] MEDS: polyethylene glycol 3350 Pkt 17 gm PO (09:23)
[2019-05-19] MEDS: pantoprazole DR 40 mg Tablet PO ×2 (09:23→17:42)
[2019-05-19] MEDS: aspirin 325 mg Tablet PO (09:23)
[2019-05-19] MEDS: clopidogrel 75 mg Tablet PO (09:23)
[2019-05-19] MEDS: levothyroxine 150 mcg Tablet PO (09:23)
[2019-05-19] MEDS: FUROsemide 40 mg Tablet PO ×2 (09:24→17:42)
--- NOTE | 2019-05-19 10:27 | PC.SOCIAL ---
IMM Updated Updated pt on Pg 2 IMM. Pt verbally understands, no questions voiced. Provided pt a copy & left on pt's bedside table. Signed, dated, & timed original in chart.
--- NOTE | 2019-05-19 11:29 | PM.PN ---
Subjective Subjective: Interval history: Overnight was noted to have non-functioning PICC line, ultrasound done revealing DVT in right basilic vein. Will start on anticoagulation with Eliquis. Discontinue PICC line. Documented urine output of 100 mL overnight though has been voiding and is incontinent per nursing staff. Sitting up in chair by bedside during my visit. Seems to be in good spirits. No complaints currently. Will transfer to floor. Medications: Reviewed: Yes Medication Review Details: Active Medications Generic Name Dose Route Start Last Admin Trade Name Freq PRN Reason Stop Dose Admin Acetaminophen 650 mg 05/08/19 05:56 05/10/19 13:00 Tylenol PO 650 mg Q6H PRN Administration Mild/Mod Pain Or Temp >/= 101 Albuterol/Ipratrop ium 3 ml 05/09/19 15:00 05/19/19 07:55 Duoneb INHALATION 3 ml Q6H.RESPIRATORY P RN Administration SHORTNESS OF BELINDA TH Apixaban 10 mg 05/19/19 11:30 Eliquis PO BID KELLY Aspirin 325 mg 05/10/19 22:40 05/19/19 09:23 Aspirin PO 325 mg DAILY KELLY Administration Atorvastatin Calci um 20 mg 05/10/19 22:40 05/18/19 20:24 Lipitor PO Not Given BEDTIME KELLY Cyanocobalamin 1,000 mcg 05/08/19 10:00 05/19/19 09:22 Vitamin B-12 PO 1,000 mcg DAILY KELLY Administration Dextrose 25 ml 05/08/19 05:56 D50w IVP ONCE PRN hypoglycemia prot ocol Protocol Dextrose 50 ml 05/08/19 05:56 D50w IVP PRN PRN hypoglycemia prot ocol Protocol Folic Acid 1 mg 05/08/19 10:00 05/19/19 09:23 Folic Acid PO 1 mg DAILY KELLY Administration Furosemide 40 mg 05/18/19 16:00 05/19/19 09:24 Lasix PO 40 mg BID@08,16 KELLY Administration Glucagon 1 mg 05/08/19 05:56 Glucagen IM ONCE PRN Adult Acute Hypog lycemia Prot. Protocol Dextrose 500 mls @ 100 mls /hr 05/08/19 05:56 D5w IV ONCE PRN Adult Acute Hypog lycemia Prot Protocol Insulin Aspart 0 unit 05/08/19 08:00 05/19/19 08:04 Novolog SUBCUT Not Given TIDWM [facility] Protocol Levothyroxine Sodi um 150 mcg 05/08/19 09:00 05/19/19 09:23 Synthroid PO 150 mcg DAILY KELLY Administration Levothyroxine Sodi um 25 mcg 05/08/19 09:00 05/19/19 09:23 Synthroid PO 25 mcg DAILY KELLY Administration Lorazepam 0.5 mg 05/14/19 16:01 05/19/19 04:53 Ativan IVP 0.5 mg Q4H PRN Administration ANXIETY Metoprolol Tartrat e 25 mg 05/10/19 14:45 05/19/19 09:22 Lopressor PO 25 mg BID KELLY Administration Ondansetron HCl 4 mg 05/08/19 05:56 Zofran IVP Q8H PRN vomiting, or N/V if npo Pantoprazole Sodiu m 40 mg 05/18/19 18:00 05/19/19 09:23 Protonix PO 40 mg BID KELLY Administration Polyethylene Glyco l 17 gm 05/10/19 15:05 05/19/19 09:23 Miralax PO 17 gm DAILY KELLY Administration Potassium Chloride 40 meq 05/10/19 09:00 05/19/19 10:06 Potassium Chlori de Oral Liquid PO Not Given DAILY KELLY Senna/Docusate Sod ium 2 tab 05/10/19 18:00 05/19/19 09:23 Senna-S PO 2 tab BID KELLY Administration piperacillin [From Zosyn] Allergy (Verified 05/08/19 01:41) ALGY-Rash tazobactam [From Zosyn] Allergy (Verified 05/08/19 01:41) ALGY-Rash Vitals/I&O/Wt Last Vital Signs Temp 98.4 F 05/18/19 20:00 Pulse 94 05/19/19 10:00 Resp 25 H 05/19/19 10:00 BP 138/73 05/19/19 10:00 Pulse Ox 94 05/19/19 10:00 05/18/19 05/19/19 05/19/19 22:59 06:59 14:59 Intake Total 240 / 540 100 / 100 Output Total 100 / 100 Balance 140 / 440 100 / 100 Weight last 48 hrs Weight 98.021 kg Physical Exam Const: COMMON NORMALS: no apparent distress, oriented x3 and alert GENERAL APPEARANCE: cooperative, comfortable and appears older than stated age; not ill appearing NUTRITIONAL APPEARANCE: obese morbidly obese ORIENTATION/CONSCIOUSNESS: Yes awake OTHER: HENMT: COMMON NORMALS: normocephalic and head/scalp atraumatic HEAD & SCALP: normocephalic and atraumatic Eye: COMMON NORMALS: PERRL, EOMs intact bilaterally and conjunctivae normal CONJUNCTIVA: Yes conjunctivae normal PUPIL: Yes PERRL Neck/C-Spine: COMMON NORMALS: full ROM GENERAL: Yes normal visual inspection and Yes trachea midline Lymph: LYMPHATIC: lymphedema Resp: COMMON NORMALS: normal respiratory effort, no retractions and no use of accessory muscles EFFORT & INSPECTION: Yes symmetric chest movement and Yes tachypneic AUSCULTATION: diminished lung sounds Cardio: COMMON NORMALS: regular rate, regular rhythm, S1 normal heart sound and S2 normal heart sound RATE: regular rate RHYTHM: regular rhythm HEART SOUNDS: S1 normal, S2 normal and murmur systolic GI: COMMON NORMALS: normal to inspection, nondistended, normoactive bowel sounds, soft to palpation and non-tender INSPECTION: Yes central obesity PALPATION: Yes soft Extremity: COMMON NORMALS: normal to inspection and full ROM GENERAL: Yes edema ( chronic lymphedema, worse on L; gradually improving) OTHER: -RUE: PICC line in place, clean dressing, some non-pitting edema noted, minimal erythema, no tenderness Neuro: COMMON NORMALS: oriented x3, moves all extremities, no focal motor deficits and no sensory deficits noted SENSORIUM/ORIENTATION: Yes alert OTHER: -Generally quite weak Psych: COMMON NORMALS: mental status grossly normal, thought process normal, cooperative, affect normal and speech normal SPEECH: Yes normal speech THOUGHT PROCESS: normal thought process OTHER: sedated Skin: COMMON NORMALS: no jaundice, no petechiae and no mottling OTHER: -Noted intertrigo in pannus, bilateral inguinal areas, gluteal cleft (improving) Urinary Catheter Management^: Mann: Cath Placed During This Visit: yes, but has since been removed by the nurse Urethral Indwelling: Yes Reason for Continuing Indwelling Catheter: Decision to DC Catheter Urinary Catheter Date of Insertion: 05/10/19 Urinary Catheter Time of Insertion: 18:00 Date Urinary Catheter Removed: 05/18/19 Time Urinary Catheter Discontinued: 17:12 Data : 05/18/19 02:40 05/19/19 05:15 A&P Assessment and plan (1) Acute respiratory failure with hypoxia: -Required intubation following CODE BLUE, extubated on 05/14 -on diuresis due to anasarca; switch to oral diuretics -Has Mann catheter in place, continue to monitor urine output; removal today -off antibiotic treatment; had been on vancomycin and Levaquin; has noted allergy to Zosyn -CXR (05/18) shows resolution of pneumonia -Echo: EF=64%, no RWMA, G1DD, mild MR, trace AR -afebrile x >24 hrs, vital signs otherwise stable; continue to monitor -continue to monitor renal function, lytes with diuresis -continue to monitor Is & Os, daily weights -telemetry monitoring -sputum cx: mixed nicho; gram stain negative, noted WBCs -blood cx: prelim negative -continue to monitor respiratory status closely -supplemental oxygen as needed -Neb treatments as needed -noted D-dimer elevation, negative PE, negative DVT -very low suspicion for possible aspiration but if continued fever and/or hemodynamic instability may need to include anaerobic coverage; not needed Status: Acute Code(s): J96.01 - Acute respiratory failure with hypoxia (2) NSTEMI (non-ST elevated myocardial infarction): -Noted to have significantly elevated troponins with a delta over 90 which may have precipitated code -Given current need for continued ventilator support, will continue medical management, was already started on a heparin drip, statin, full dose aspirin and Plavix; d/c heparin drip -No acute ischemic changes noted on EKG -Echo done previously as noted below with no noted regional wall motion abnormalities -Continue telemetry monitoring -Cardiology consult by Dr. Turner appreciated; will need outpatient stress testing Status: Acute Code(s): I21.4 - Non-ST elevation (NSTEMI) myocardial infarction (3) Macrocytic anemia: -has chronic macrocytic anemia; has evidence of vitamin B12 and folate deficiency -replacing vitamin B12, folate -also noted evidence of low iron though ferritin is normal -f/u FOBT; had reported black stools -baseline Hg is around 11; continue to monitor H/H closely; has been gradually trending down -on PPI Status: Chronic Code(s): D53.9 - Nutritional anemia, unspecified (4) DVT (deep venous thrombosis): -overnight, noted to have non-functioning PICC line -venous duplex: + DVT in R basilic vein at PICC line insertion site -d/c PICC line -RUE elevation -start on therapeutic anticoagulation with Eliquis; she does have baseline anemia but was on approximately 7 days of a heparin drip with minimal change in her hemoglobin -Will monitor for bleeding and continue to monitor her H&H Status: Acute Code(s): I82.409 - Acute embolism and thrombosis of unspecified deep veins of unspecified lower extremity Additional A&P Information -Morbid obesity: BMI-40 kg/m2 -Hx of thyroid cancer s/p thyroidectomy with acquired hypothyroidism; continue levothyroxine -HTN -GEOVANNI -GERD; on PPI -NIDDM type II; A1c-5.5; accuchecks, ISS -has significant bilateral LE lymphedema; lymphedema wraps -DELLA on CKD stage 2; baseline Cr around 0.9; likely due to diuresis. DELLA resolved -Intertrigo involving pannus, bilateral inguinal areas, gluteal cleft; interdry, frequent repositioning, keep areas clean and dry -Deconditioning and generalized weakness; prolonged hospitalization much of which she has spent in bed have led to significant generalized weakness -ST evaluation done for swallow; on mechanical soft diet with thin liquids -PT/OT evaluations appreciated: SNF recommended -GI ppx with PPI -DVT ppx with SCDs; had been on heparin drip which is discontinued -Dispo: has been accepted at [facility] -Code status: FULL code -transfer to floor once bed available Attestations Medical Necessity Statement*: Patient requires hospitalization for continued optimization of her medications and initiation of anticoagulation given right upper extremity DVT. Time Spent in Patient Care: Greater than 35 minutes (>than 50% of time spent in counselling and/or direct pt care on unit). Coding Level of Care Code Acute Hoop Maker Machine for Babarg Fwd Exam Comprehensive Diagnoses Acute respiratory failure with hypoxia J96.01 NSTEMI (non-ST elevated myocardial infarction) I21.4 Macrocytic anemia D53.9 DVT (deep venous thrombosis) I82.409
[2019-05-19] MEDS: apixaban 5 mg Tablet 10 MG PO ×2 (12:27→17:42)
[2019-05-19 18:25] LABS: Glucose Point of Care 157 mg/dL (70-110)
[2019-05-19 18:25] LABS: Glucose Point of Care 166 mg/dL (70-110)
[2019-05-19 20:55] LABS: Glucose Point of Care 132 mg/dL (70-110)
[2019-05-20] VITALS (12 sets, daily range): BP systolic 104–149; BP diastolic 50–70; PULSE 74–90; RESP 18–38; TEMP 36.4–36.9; O2SAT 90–97
[2019-05-20] MEDS: ipratropium-albuterol 3 mL Neb INHALATION ×2 (02:26→07:47)
[2019-05-20 04:55] LABS: Basophils % 0.4 %; Eosinophils # 0.1 10^3/uL (0.0-0.8); Eosinophils % 2.3 %; Hematocrit 28.9 % (37.0-47.0); Hemoglobin 8.8 g/dL (11.5-15.3); Lymphocytes # 0.3 10^3/uL (0.8-4.8); Lymphocytes % 5.7 %; Mean Corpuscular HGB Conc 30.4 g/dL (30.0-36.0); Mean Corpuscular Hemoglobin 33.2 pg (28.0-34.0); Mean Corpuscular Volume 109.1 fL (81-99); Monocytes # 0.4 10^3/uL (0.2-0.9); Monocytes % 6.8 %; Neutrophils # 4.4 10^3/uL (1.8-7.7); Neutrophils % 82.5 %; Nucleated Red Blood Cells % 0 %; Platelet Count 298 10^3/cmm (130-400); Red Blood Count 2.65 10^6/uL (4.1-5.3); Red Cell Distribution Width 19.9 % (12.1-15.1); White Blood Count 5.3 10^3/uL (4.0-10.0)
[2019-05-20 06:25] LABS: Glucose Point of Care 108 mg/dL (70-110)
--- NOTE | 2019-05-20 09:44 | P.DS_ITS ---
Discharge Providers Date of Admission: 05/08/19 04:37 Date of Discharge: May 20, 2019 Attending Provider at Admission: Gagan Albright MD Attending Provider at Discharge: Maxine Leroy MD Diagnoses at Discharge Discharge Diagnosis (1) Acute respiratory failure with hypoxia: Status: Acute Problem details: -Required intubation following CODE BLUE, extubated on 05/14 -on diuresis due to anasarca; switch to oral diuretics -Has Mann catheter in place, continue to monitor urine output; removal today -off antibiotic treatment; had been on vancomycin and Levaquin; has noted allergy to Zosyn -CXR (05/18) shows resolution of pneumonia -Echo: EF=64%, no RWMA, G1DD, mild MR, trace AR -afebrile x >24 hrs, vital signs otherwise stable; continue to monitor -continue to monitor renal function, lytes with diuresis -continue to monitor Is & Os, daily weights -telemetry monitoring -sputum cx: mixed nicho; gram stain negative, noted WBCs -blood cx: prelim negative -continue to monitor respiratory status closely -supplemental oxygen as needed -Neb treatments as needed -noted D-dimer elevation, negative PE, negative DVT -very low suspicion for possible aspiration but if continued fever and/or hemod ynamic instability may need to include anaerobic coverage; not needed (2) NSTEMI (non-ST elevated myocardial infarction): Status: Acute Problem details: -Noted to have significantly elevated troponins with a delta over 90 which may have precipitated code -Given current need for continued ventilator support, will continue medical management, was already started on a heparin drip, statin, full dose aspirin and Plavix; d/c heparin drip -No acute ischemic changes noted on EKG -Echo done previously as noted below with no noted regional wall motion abnormalities -Continue telemetry monitoring -Cardiology consult by Dr. Turner appreciated; will need outpatient stress testing (3) Macrocytic anemia: Status: Chronic Problem details: -has chronic macrocytic anemia; has evidence of vitamin B12 and folate de ficiency -replacing vitamin B12, folate -also noted evidence of low iron though ferritin is normal -had reported black stools -baseline Hg is around 11; continue to monitor H/H closely; has been gradually trending down -on PPI (4) DVT (deep venous thrombosis): Status: Acute Problem details: -overnight, noted to have non-functioning PICC line -venous duplex: + DVT in R basilic vein at PICC line insertion site -d/c PICC line -RUE elevation -started on therapeutic anticoagulation with Eliquis; she does have baseline anemia but was on approximately 7 days of a heparin drip with minimal change in her hemoglobin -Will monitor for bleeding and continue to monitor her H&H; hemoglobin stable Other Information Additional DC diagnoses/information: -Morbid obesity: BMI-40 kg/m2 -Hx of thyroid cancer s/p thyroidectomy with acquired hypothyroidism; continue levothyroxine -HTN -GEOVANNI -GERD; on PPI -NIDDM type II; A1c-5.5; accuchecks, ISS -has significant bilateral LE lymphedema; lymphedema wraps -DELLA on CKD stage 2; baseline Cr around 0.9; likely due to diuresis. DELLA resolved -Intertrigo involving pannus, bilateral inguinal areas, gluteal cleft; interdry, frequent repositioning, keep areas clean and dry -Deconditioning and generalized weakness; prolonged hospitalization much of which she has spent in bed have led to significant generalized weakness Reason for Visit Reason for Visit: Reason For Visit: SOB, COUGH Hospital Course Hospital Course: Patient was originally admitted to the medical surgical floor and started on IV diuretics secondary to acutely decompensated CHF. Diuresis was initially quite modest and medications were titrated as needed to optimize response. Unfortunately on day 2 of her admission her respiratory status decompensated and she became unresponsive. She was subsequently intubated and transferred to ICU. She did not lose her pulse so no CPR or medications were required. She remained intubated with continued diuresis and broad-spectrum IV antibiotics as well. She was found to have an NSTEMI that likely occurred during the aforementioned episode of decreased responsiveness. She was started on anticoagulation with a heparin drip, aspirin, Plavix, beta-masha, statin and remained on medical management while intubated. Due to anasarca she required mechanical ventilation for a few days then was successfully extubated on 05/14. She has intermittently required BiPAP versus supplemental oxygen since then. She has diuresed well and I have switched her from IV to oral diuretics. Once more stable cardiology was consulted and recommended outpatient stress testing to allow for complete recovery and as patient cannot tolerate procedure at this time. She has completed her antibiotic course and follow-up imaging has shown resolution of pneumonia. Due to poor peripheral IV access particularly while on mechanical ventilation patient had a PICC line placed. Unfortunately, she was noted to develop a left upper extremity basilic vein DVT at which point the PICC line was discontinued and she was started on therapeutic anticoa gulation. Patient has baseline macrocytic anemia, and has been getting replacement of folate and B12 as well as close monitoring of her hemoglobin. Her hemoglobin remained stable even while on heparin drip for over a week. It remained stable even with introduction of Eliquis though due to bleeding risk I have discontinued Plavix while she is on therapeutic Eliquis. She is to continue aspirin at this time. Mann catheter has been discontinued and she has been able to void independently. She was evaluated by speech therapy following extubation and has been on a mechanical soft diet with thin liquids. She is to continue aspiration precautions. She will continue supplemental oxygen, she is currently on 3 L nasal cannula which can be titrated to maintain her saturation at or above 92% or for symptomatic relief. She will also require BiPAP particularly at night. Due to her prolonged hospitalization she has become quite deconditioned and weak and physical therapy has been working with her. Patient is agreeable to SNF placement and once stabilized has been discharged to [facility] for continued therapy. She will follow-up with cardiology in about 2 weeks to determine timing of outpatient stress testing. Physical Exam Const: COMMON NORMALS: no apparent distress, oriented x3 and alert GENERAL APPEARANCE: cooperative, comfortable and appears older than stated age; not ill appearing NUTRITIONAL APPEARANCE: obese morbidly obese ORIENTATION/CONSCIOUSNESS: Yes awake OTHER: HENMT: COMMON NORMALS: normocephalic and head/scalp atraumatic HEAD & SCALP: normocephalic and atraumatic Eye: COMMON NORMALS: PERRL, EOMs intact bilaterally and conjunctivae normal CONJUNCTIVA: Yes conjunctivae normal PUPIL: Yes PERRL Neck/C-Spine: COMMON NORMALS: full ROM GENERAL: Yes normal visual inspection and Yes trachea midline Lymph: LYMPHATIC: lymphedema Resp: COMMON NORMALS: normal respiratory effort, no retractions and no use of accessory muscles EFFORT & INSPECTION: Yes symmetric chest movement and Yes tachypneic AUSCULTATION: diminished lung sounds Cardio: COMMON NORMALS: regular rate, regular rhythm, S1 normal heart sound and S2 normal heart sound RATE: regular rate RHYTHM: regular rhythm HEART SOUNDS: S1 normal, S2 normal and murmur systolic GI: COMMON NORMALS: normal to inspection, nondistended, normoactive bowel sounds, soft to palpation and non-tender INSPECTION: Yes central obesity PALPATION: Yes soft : BLADDER/KIDNEY EXAM: Yes catheter in place Catheter type (Female): urethral Extremity: COMMON NORMALS: normal to inspection and full ROM GENERAL: Yes edema ( chronic lymphedema, worse on L; gradually improving) OTHER: -RUE: some non-pitting edema noted, minimal erythema, no tenderness Neuro: COMMON NORMALS: oriented x3, moves all extremities, no focal motor deficits and no sensory deficits noted SENSORIUM/ORIENTATION: Yes alert OTHER: -Generally quite weak Psych: COMMON NORMALS: mental status grossly normal, thought process normal, cooperative, affect normal and speech normal SPEECH: Yes normal speech THOUGHT PROCESS: normal thought process Skin: COMMON NORMALS: no jaundice, no petechiae and no mottling OTHER: - Noted intertrigo in pannus, bilateral inguinal areas, gluteal cleft (improving) Urinary Catheter Management^: Mann: Cath Placed During This Visit: yes, but has since been removed by the nurse Urethral Indwelling: Yes Reason for Continuing Indwelling Catheter: Decision to DC Catheter Urinary Catheter Date of Insertion: 05/10/19 Urinary Catheter Time of Insertion: 18:00 Date Urinary Catheter Removed: 05/18/19 Time Urinary Catheter Discontinued: 17:12 Discharge Data Data Completed and Pending: Completed Studies During Hospitalization Category Date Time Status CT angio chest w abd pel w con Urge nt Cat Scan 05/08/19 02:59 Completed CXRP [XR chest 1V portable [id number]] S tat Exams 05/10/19 18:54 Completed CXRP [XR chest 1V portable [id number]] S tat Exams 05/11/19 15:28 Completed XR chest 1V elsa ble [id number] Routine Exams 05/10/19 15:02 Completed XR chest 1V elsa ble [id number] Routine Exams 05/12/19 06:00 Completed XR chest 1V elsa ble [id number] Routine Exams 05/13/19 11:21 Completed XR chest 1V elsa ble [id number] Routine Exams 05/18/19 11:07 Completed XR chest 1V elsa ble [id number] Urgent Exams 05/08/19 01:41 Completed CV echo complete* [id number] Routine Ultrasound 05/08/19 05:56 [place] [id number] Urgent Ultrasound 05/08/19 01:43 Completed US venous duplex upper extremity RT [CV venous duplex Ultrasound 05/19/19 03:38 [place] [id number]] Rout ine Pending at discharge Category Date Time Status Immunochemical Fe christina OCB Stat Lab 05/08/19 04:22 Uncollected Labs from last 24 hours 05/20/19 05/20/19 05/19/19 06:12 04:15 20:51 WBC 5.3 RBC 2.65 L Hgb 8.8 L Hct 28.9 L MCV 109.1 H MCH 33.2 MCHC 30.4 RDW 19.9 H Plt Count 298 MPV 10.0 Neut % (Auto) 82.5 Lymph % (Auto) 5.7 Bailey % (Auto) 6.8 Eos % (Auto) 2.3 Baso % (Auto) 0.4 Neut # (Auto) 4.4 Lymph # (Auto) 0.3 L Bailey # (Auto) 0.4 Eos # (Auto) 0.1 Baso # (Auto) 0.0 Nucleated RBC % (a uto) 0 Nucleated RBCs # 0.0 POC Glucose 108 132 05/19/19 05/19/19 17:28 11:27 WBC RBC Hgb Hct MCV MCH MCHC RDW Plt Count MPV Neut % (Auto) Lymph % (Auto) Bailey % (Auto) Eos % (Auto) Baso % (Auto) Neut # (Auto) Lymph # (Auto) Bailey # (Auto) Eos # (Auto) Baso # (Auto) Nucleated RBC % (a uto) Nucleated RBCs # POC Glucose 166 157 Vitals: Last Vital Signs Temp 97.6 F 05/20/19 07:34 Pulse 86 05/20/19 07:52 Resp 18 05/20/19 07:47 BP 149/65 05/20/19 07:34 Pulse Ox 96 05/20/19 07:47 Discharge Plan Discharge Patient Disposition: Xfer SNF Condition: Stable Prescriptions: New furosemide 40 mg Tablet 40 mg PO BID@08,16 30 Days Qty: 60 RF: 0 atorvastatin 40 mg Tablet 40 mg PO BEDTIME 30 Days Qty: 30 RF: 0 acetaminophen 325 mg Tablet 650 mg PO Q6H PRN (Reason: Mild/Mod Pain Or Temp >/= 101) Qty: 30 RF: 0 aspirin 325 mg Tablet 325 mg PO DAILY 30 Days Qty: 30 RF: 0 sennosides-docusate sodium 8.6-50 mg Tablet 2 tab PO BID 30 Days Qty: 120 RF: 0 Vitamin B-12 1,000 mcg Tablet 1,000 mcg PO DAILY 30 Days Qty: 30 RF: 0 folic acid 1 mg Tablet 1 mg PO DAILY 30 Days Qty: 30 RF: 0 metoprolol tartrate 25 mg Tablet 25 mg PO BID 30 Days Qty: 60 RF: 0 Eliquis DVT-PE Treat 30D Start 5 mg (74 tabs) tablets,dose pack See Rx Instructions .ROUTE .COMPLEX Qty: 74 RF: 0 potassium chloride 10 mEq capsule, extended release 10 meq PO BID 30 Days Qty: 60 RF: 0 Continued levothyroxine 175 mcg Tablet 175 mcg PO DAILY 30 Days Qty: 30 RF: 0 Januvia 100 mg PO DAILY 30 Days Qty: 30 RF: 0 fenofibrate 48 mg PO DAILY 30 Days Qty: 30 RF: 0 omeprazole 40 mg PO DAILY 30 Days Qty: 30 RF: 0 Discontinued Aspir-81 81 mg PO DAILY RF: 0 acetaminophen 500 mg PO Q6H RF: 0 Discharge Orders: Discharge Order (Routine); Ordered 05/20/19 Ordered By: Maxine Leroy Referrals: Viktor Baker MD [Family Provider] - 4-7 days (Post-hospital discharge follow up) Shawna Turner MD [Physician] - 2 weeks (Post-NSTEMI follow up. ) Discharge Diet: Cardiac and Diabetic Discharge Activity: Increase activity as tolerated, Oxygen as instructed and Cpap/Bipap as instructed Patient Instructions: Acute Kidney Injury (DC), Deep Venous Thrombosis (DC) Activity Restrictions/Additional Instructions: -Patient uses BiPAP at night or if symptomatically short of breath. Settings are FiO2-40%, Inspiratory pressure of 16 cm H2O, Expiratory pressure of 8 cm H2O -Patient uses supplemental oxygen, currently at 3 L NC, can be titrated as needed to maintain her saturation at or above 92% or for symptomatic relief -Patient should be maintained on a mechanical soft diet with thin liquids and be sitting up for all meals to avoid aspiration Discharge Date/Time: 05/20/19 14:00 Discharge Attestations Time Spent in Discharge Care*: greater than 30 min Specific Discharge Activities: Specific discharge activities: educating patient, educating and/or supporting family/caregiver, discussing with bilingual patient support caseworker/social workers/dc planners, documenting/other paperwork and evaluating patient/reviewing data Status at Discharge: Cognitive status at discharge: cognitively intact , Behavioral status at discharge: cooperative , Functional status at discharge: other assisted ambulation Overall status at discharge: patient is back to baseline Quality Metrics Clinical Quality Measures During this hospital stay, did patient experience: AMI (NSTEMI) Clinical Trial Participant: No Contraindication to aspirin (AMI): Aspirin given Contraindication to statin: Statin prescribed Coding Level of Care Code Acute [employer] Manager for [facility] Fwd Exam Comprehensive Diagnoses Acute respiratory failure with hypoxia J96.01 NSTEMI (non-ST elevated myocardial infarction) I21.4 Macrocytic anemia D53.9 DVT (deep venous thrombosis) I82.409
[2019-05-20] MEDS: sennosides-docusate Tablet 2 TAB PO (10:20)
[2019-05-20] MEDS: metoprolol tartrate 25 mg Tablet PO (10:21)
[2019-05-20] MEDS: FUROsemide 40 mg Tablet PO (10:21)
[2019-05-20] MEDS: levothyroxine 25 mcg Tablet PO (10:21)
[2019-05-20] MEDS: levothyroxine 150 mcg Tablet PO (10:21)
[2019-05-20] MEDS: cyanocobalamin 1,000 mcg Tablet 1000 MCG PO (10:22)
[2019-05-20] MEDS: folic acid 1 mg Tablet PO (10:22)
[2019-05-20] MEDS: pantoprazole DR 40 mg Tablet PO (10:22)
[2019-05-20] MEDS: apixaban 5 mg Tablet 10 MG PO (10:22)
[2019-05-20] MEDS: aspirin 325 mg Tablet PO (10:23)
[2019-05-20] MEDS: polyethylene glycol 3350 Pkt 17 gm PO (10:29)
[2019-05-20 10:58] LABS: Glucose Point of Care 196 mg/dL (70-110)
== END 2019-05-20 14:00 | disposition skilled nursing facility (03) | DRG 208 ==
LOC: ER 05:05 → MEDSURG 05:06 → ICU 05-10 19:11 → MEDSURG 05-20 04:16
PROVIDERS: Hospitalist; Admitting Provider Family Medicine; Emergency Provider Nurse Practitioner; Family Provider Family Medicine; Visit Provider Family Medicine
DX: J96.01 Acute respiratory failure with hypoxia (principal); I21.4 Non-ST elevation (NSTEMI) myocardial infarction; J18.9 Pneumonia, unspecified organism; I13.0 Hypertensive heart and chronic kidney disease with heart failure and stage 1 through stage 4 chronic kidney disease, or unspecified chronic kidney disease; Z68.41 Body mass index [BMI] 40.0-44.9, adult; N17.9 Acute kidney failure, unspecified; T82.514A Breakdown (mechanical) of infusion catheter, initial encounter; I82.621 Acute embolism and thrombosis of deep veins of right upper extremity; Z85.850 Personal history of malignant neoplasm of thyroid; E89.0 Postprocedural hypothyroidism; I50.9 Heart failure, unspecified; N18.2 Chronic kidney disease, stage 2 (mild); E11.22 Type 2 diabetes mellitus with diabetic chronic kidney disease; Z79.84 Long term (current) use of oral hypoglycemic drugs; G47.33 Obstructive sleep apnea (adult) (pediatric); K21.9 Gastro-esophageal reflux disease without esophagitis; K59.00 Constipation, unspecified; R63.4 Abnormal weight loss; D53.9 Nutritional anemia, unspecified; I89.0 Lymphedema, not elsewhere classified; E66.01 Morbid (severe) obesity due to excess calories; Y80.1 Therapeutic (nonsurgical) and rehabilitative physical medicine devices associated with adverse incidents
CPT/HCPCS: 12345; 36415; 36416; 36592; 36600; 51702; 71045; 71275; 74177; 80048; 80051; 80053; 80061; 80202; 82607; 82728; 82746; 82803; 82810; 82962; 83036; 83540; 83550; 83605; 83735; 83880; 83986; 84100; 84145; 84443; 84484; 85014; 85018; 85025; 85045; 85378; 85610; 85651; 85730; 86850; 86900; 87040; 87070; 87205; 87804; 92610; 93005; 93306; 93970; 93971; 94002; 94003; 94640; 94660; 94799; 96365; 96372; 96375; 97110; 97140; 97161; 97163; 97165; 97530; 97535; 99283; C1751; C9113; J0330; J0456; J1644; J1815; J1940; J1956; J2060; J2704; J2930; J3370; J3475; J3490; J7050

== ENCOUNTER 2019-06-17 00:59 | Inpatient (IN) | payer MEDICARE, MEDICAID, SELFPAY ==
[2019-06-17] VITALS (15 sets, daily range): BP systolic 94–146; BP diastolic 48–76; PULSE 69–90; RESP 10–29; TEMP 36.3–36.9; O2SAT 94–100; BMI 36.2; BMI 33.0
--- NOTE | 2019-06-17 00:58 | XR_ITS ---
WS: [id number] XR chest 1V portable [id number] REASON FOR EXAM: cough FINDINGS: The left lingula segment shows an infiltrate. The remaining lung mascorro are mildly hyper aerated. There is arteriosclerotic changes in the arch of the aorta. The hilum and apices normal. XR/XR chest 1V portable [id number] IMPRESSION: Low-grade lingula interstitial pneumonia.
--- NOTE | 2019-06-17 00:59 | ECG_ITS ---
Measurements Intervals [place] Rate: 91 P: 82 ME: 134 QRS: 25 QRSD: 86 T: 57 QT: 390 QTc: 480 SINUS RHYTHM WITH OCCASIONAL VENTRICULAR PREMATURE COMPLEXES WITH OCCASIONAL SUP SUPRAVENTRICULAR PREMATURE COMPLEXES MINIMAL ST DEPRESSION [0.025+ mV ST DEPRESSION] Compared to ECG 05/11/2019 04:19:34 Ventricular premature complex(es) now present ST (T wave) deviation still present Electronically Signed On 06-17-2019 8:46:03 CDT by Apollo Avery [email or web address]
--- NOTE | 2019-06-17 01:06 | ED_ITS ---
Entered by Jessica eLe, acting as scribe for Danielle Ramirez HPI - SOB/Dyspnea General: Chief Complaint: Shortness of Breath/Dyspnea Stated Complaint: SOB Time Seen by Provider: 06/17/19 01:06 Source: EMS Mode of arrival: EMS ([facility] ) Limitations: no limitations History of Present Illness: HPI Narrative: 74 yo f came to the er by [facility] for shortness of breath. Onset was 2 days ago. EMS states that she has had some increase of shortness of breath the last couple of days and has not improved. She has increasing leg edema and per EMS report rales on exam. She was given 80 mg of Lasix and placed on CPAP in route. EMS reports the CPAP seems to have helped more than anything. 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) Exacerbating factors: lying flat and exertion Relieving factors: oxygen and rest Associated symptoms: Reports no associated symptoms; Deny abdominal pain, chest pain, dizziness, extremity pain, fever(s), nausea, polydipsia or vomiting Treatment prior to arrival: none Related Data: Home oxygen amount: none Review of Systems General: Reports: other (negative unless marked) Const: Denies: fever Eyes: Denies: change in vision ENMT: Denies: throat pain, painful swallowing, hoarseness, ear pain, ear discharge, Change in hearing or nasal discharge Card: Denies: chest pain Resp: Reports: shortness of breath GI: Denies: abdominal pain, nausea, vomiting, vomiting blood, coffee grounds in vomit, diarrhea, constipation, cramping, blood in stool or black tarry stool : Denies: flank pain, painful urination, urinary frequency, urinary urgency, decreased urine ouput, urinary incontinence or blood in urine Musc: Denies: neck pain, back pain, extremity pain, extremity swelling, joint pain, joint swelling, joint warmth or joint stiffness Skin/Breast: Denies: rash, skin tenderness or yellow skin Neuro: Denies: headache, numbness in extremities, weakness in extremities, changes in sensation, lack of coordination, difficulty walking, dizziness, verti go or confusion Endo: Denies: excessive thirst, tired all the time, cold intolerance, excessive sweating, flushing or hot flashes Wai/Lymph: Denies: easy bruising, easy bleeding, petechiae or enlarged lymph nodes All/Imm: Denies: hives, throat swelling, tongue swelling, facial swelling or acute wheezing PFSH ED PFSH: Medical History GERD (gastroesophageal reflux disease) Hypertension Hypothyroidism Lymphedema Non-insulin dependent type 2 diabetes mellitus Weight loss Surgical History H/O thyroidectomy History of ankle surgery Family History Other Breast cancer CAD (coronary artery disease) Diabetes Hypertension Social History Smoking and tobacco status: never smoked Alcohol intake: never Physical Exam Const: COMMON NORMALS: oriented x3, no limitations, healthy appearing and well nourished EXAM LIMITATIONS: no altered mental status GENERAL APPEARANCE: cooperative, well kempt, well developed and in distress (Respiratory) ORIENTATION/CONSCIOUSNESS: Yes awake HENMT: COMMON NORMALS: normocephalic, head/scalp atraumatic, hearing grossly normal bilaterally, external ears normal, EAC's normal, external nose normal and moist oral mucous membranes HEAD & SCALP: normal to inspection, normocephalic and atraumatic FACE & SINUS: normal facial exam and face symmetric NOSE: external nose normal and nares normal EXTERNAL EAR: Yes external ears normal EXTERNAL AUDITORY CANAL: EAC's normal MOUTH: oral and palatal mucosa normal and tongue normal Eye: COMMON NORMALS: PERRL, EOMs intact bilaterally, conjunctivae normal and no scleral icterus GENERAL EYE: normal appearance of both eyes and normal light reflex CONJUNCTIVA: Yes conjunctivae normal SCLERA: sclerae normal CORNEA: Yes corneas normal PUPIL: Yes PERRL DIRECT OPHTHALMOSCOPY: Yes normal light reflex Neck/C-Spine: COMMON NORMALS: full ROM, no lymphadenopathy, supple, no meningeal signs and no JVD GENERAL: Yes normal visual inspection and Yes trachea midline CERVICAL SPINE: Yes cervical ROM normal Chest: COMMONS NORMALS: inspection of chest normal and palpation of chest normal Resp: EFFORT & INSPECTION: Yes tachypneic, Yes respiratory distress, Yes labored and Yes uses accessory muscles AUSCULTATION: rhonchi and wheezes Cardio: COMMON NORMALS: no JVD, regular rate, regular rhythm, S1 normal heart sound, S2 normal heart sound, no gallops, no clicks, no murmurs and no rub JUGULAR VENOUS DISTENTION: no JVD RATE: regular rate RHYTHM: regular rhythm HEART SOUNDS: S1 normal and S2 normal GI: COMMON NORMALS: soft to palpation, non-tender, no hepatosplenomegaly and no masses INSPECTION: Yes normal to inspection PALPATION: Yes soft and Yes no hepatosplenomegaly : COMMON NORMALS: Yes no CVA tenderness BLADDER/KIDNEY EXAM: Yes no CVA tenderness Back/Pelvis: COMMON NORMALS: no CVA tenderness, thoracic and lumbar spine normal to inspection, no thoracic nor lumbar tenderness and thoraco-lumbar ROM normal Extremity: COMMON NORMALS: normal to inspection, full ROM, normal capillary r efill, no joint enlargement, no clubbing, cyanosis or edema and no calf tenderness Neuro: COMMON NORMALS: oriented x3, CN's II-XII intact bilaterally, moves all extremities, no focal motor deficits and no sensory deficits noted MENINGEAL SIGNS: Yes no meningeal signs Psych: COMMON NORMALS: mental status grossly normal, thought process normal, cooperative, affect normal, speech normal and activity/motor behavior normal APPEARANCE: Yes well kempt SPEECH: Yes normal speech THOUGHT PROCESS: normal thought process Skin: COMMON NORMALS: no rashes or lesions noted, skin turgor normal, no jaundice, no petechiae and no mottling GENERAL SKIN EXAM: no rashes or lesions noted and turgor normal Course Vital Signs: Vital signs: Vital Signs Temperature 97.9 F 06/17/19 00:58 Pulse Rate 79 06/17/19 01:37 Respiratory Rate 20 H 06/17/19 01:37 Blood Pressure 133/53 06/17/19 00:58 Pulse Oximetry 100 06/17/19 01:37 MDM - SOB/Dyspnea MDM Narrative: Medical decision making narrative: The patient's chest x-ray appears clear. I see no sign of pneumothorax, pneumonia or severe congestive heart failure. I do not think that she has a pulmonary embolism as she is on Eliquis already. He does not have chest pain. The patient has improved with CHF treatment primarily initiated by EMS. I believe she will need to come in as she has continue diuresis that will be needed as well as multiple electrolyte abnormalities including hypocalcemia, hypokalemia and hypomagnesemia. The case was endorsed to Dr. Quiroz and she is agreeable to admission. Lab Data: Attestation: I reviewed the patient's lab results. Labs: Lab Results 06/17/19 06/17/19 06/17/19 Range/Units 01:03 01:17 01:17 WBC 5.7 (4.0-10.0) 10^3/ uL RBC 3.50 L (4.1-5.3) 10^6/u L Hgb 10.4 L (11.5-15.3) g/dL Hct 33.3 L (37.0-47.0) % MCV 95.1 (81-99) fL MCH 29.7 (28.0-34.0) pg MCHC 31.2 (30.0-36.0) g/dL RDW 15.9 H (12.1-15.1) % Plt Count 286 (130-400) 10^3/c mm MPV 9.8 (7.4-10.4) fL Neut % (Auto) 76.3 % Lymph % (Auto) 15.4 % [place] % (Auto) 6.7 % Eos % (Auto) 1.2 % Baso % (Auto) 0.2 % Neut # (Auto) 4.4 (1.8-7.7) 10^3/u L Lymph # (Auto) 0.9 (0.8-4.8) 10^3/u L [place] # (Auto) 0.4 (0.2-0.9) 10^3/u L Eos # (Auto) 0.1 (0.0-0.8) 10^3/u L Baso # (Auto) 0.0 (0.0-0.1) 10^3/u L Nucleated RBC % (a uto) 0 % Nucleated RBCs # 0.0 /100WBC PT (10.5-13.3) SECO NDS INR (0.8-1.2) Specimen Type Arterial Sample Site Radial, right ABG pH 7.47 H (7.35-7.45) ABG pCO2 38.6 (35-45) mmHg ABG pO2 156.0 H* (80.0-100.0) mmH g ABG HCO3 28.0 H (22-26) mmol/L ABG Base Excess 4.1 H (-2.0-2.0) mmol/ L Jordan Test Pos Hematocrit 31.4 L (37-47) % O2 Delivery Device Bipap FiO2 40.0 % Golf Club Manager ID yamila Sodium 136 (136-145) mmol/L Potassium 3.2 L (3.5-5.1) mmol/L Chloride 93 L (98-107) mmol/L Carbon Dioxide 27 (22-29) mmol/L Anion Gap 19.2 H (5-19) BUN 6 L (8-23) mg/dL Creatinine 1.2 H (0.5-0.9) mg/dL Glucose 111 (65-115) mg/dL Calculated Osmolal ity 278 L (285-295) mOsm/k g Calcium 5.9 L (8.5-10.5) mg/dL Magnesium 1.1 L (1.7-2.3) mg/dL Total Bilirubin 0.6 (0.15-1.2) mg/dL AST 15 (0-32) U/L ALT 7 (0-33) U/L Alkaline Phosphata se 82 (35-105) IU/L Troponin T Baselin e (0-10) ng/mL NT-Pro-B Natriuret Pep 625 H (0-450) pg/mL Total Protein 6.6 (6.6-8.7) g/dL Albumin 3.1 L (3.5-5.2) g/dL Globulin 3.5 (1.3-4.6) g/dL Urine Color (Yellow) Urine Appearance (CLEAR) Urine pH (5-7) Ur Specific Gravit y (1.005-1.030) Urine Protein (Negative) Urine Glucose (UA) (Normal) Urine Ketones (Negative) Urine Blood (Negative) Urine Nitrate (Negative) Urine Bilirubin (NEGATIVE) Urine Urobilinogen (Negative) mg/dL Ur Leukocyte Lisa ase (Negative) Urine RBC (0-2) /hpf Urine WBC (0-5) /hpf Ur Squamous Epith Cells (0-5) Urine Bacteria (NONE) Hyaline Casts 06/17/19 06/17/19 06/17/19 Range/Units 01:17 01:17 02:06 WBC (4.0-10.0) 10^3/ uL RBC (4.1-5.3) 10^6/u L Hgb (11.5-15.3) g/dL Hct (37.0-47.0) % MCV (81-99) fL MCH (28.0-34.0) pg MCHC (30.0-36.0) g/dL RDW (12.1-15.1) % Plt Count (130-400) 10^3/c mm MPV (7.4-10.4) fL Neut % (Auto) % Lymph % (Auto) % [place] % (Auto) % Eos % (Auto) % Baso % (Auto) % Neut # (Auto) (1.8-7.7) 10^3/u L Lymph # (Auto) (0.8-4.8) 10^3/u L [place] # (Auto) (0.2-0.9) 10^3/u L Eos # (Auto) (0.0-0.8) 10^3/u L Baso # (Auto) (0.0-0.1) 10^3/u L Nucleated RBC % (a uto) % Nucleated RBCs # /100WBC PT 19.80 H (10.5-13.3) SECO NDS INR 1.62 H (0.8-1.2) Specimen Type Sample Site ABG pH (7.35-7.45) ABG pCO2 (35-45) mmHg ABG pO2 (80.0-100.0) mmH g ABG HCO3 (22-26) mmol/L ABG Base Excess (-2.0-2.0) mmol/ L Jordan Test Hematocrit (37-47) % O2 Delivery Device FiO2 % Golf Club Manager ID Sodium (136-145) mmol/L Potassium (3.5-5.1) mmol/L Chloride (98-107) mmol/L Carbon Dioxide (22-29) mmol/L Anion Gap (5-19) BUN (8-23) mg/dL Creatinine (0.5-0.9) mg/dL Glucose (65-115) mg/dL Calculated Osmolal ity (285-295) mOsm/k g Calcium (8.5-10.5) mg/dL Magnesium (1.7-2.3) mg/dL Total Bilirubin (0.15-1.2) mg/dL AST (0-32) U/L ALT (0-33) U/L Alkaline Phosphata se (35-105) IU/L Troponin T Baselin e 66 H (0-10) ng/mL NT-Pro-B Natriuret Pep (0-450) pg/mL Total Protein (6.6-8.7) g/dL Albumin (3.5-5.2) g/dL Globulin (1.3-4.6) g/dL Urine Color Yellow (Yellow) Urine Appearance Hazy A (CLEAR) Urine pH 6 (5-7) Ur Specific Gravit y 1.010 (1.005-1.030) Urine Protein Neg (Negative) Urine Glucose (UA) Norm (Normal) Urine Ketones Negative (Negative) Urine Blood Neg (Negative) Urine Nitrate Negative (Negative) Urine Bilirubin Neg (NEGATIVE) Urine Urobilinogen Norm (Negative) mg/dL Ur Leukocyte Lisa ase Negative (Negative) Urine RBC 0-4 H (0-2) /hpf Urine WBC None (0-5) /hpf Ur Squamous Epith Cells 5-10 H (0-5) Urine Bacteria 2+ H (NONE) Hyaline Casts 0-4 H Imaging Data^: CXR: My impression: No acute cardiopulmonary findings. EKG Data^: EKG 1: Attestation: I personally reviewed and interpreted this EKG as follows: EKG Interpretation Date: 06/17/19 EKG interpretation time: 01:03 Interpretation: Normal sinus rhythm at 91 beats a minute, nonspecific ST and T wave changes. Baseline artifact present. PACs. Discharge Plan Discharge Patient Disposition: Placed in Observation Clinical Impression: Congestive heart failure Condition: Stable Prescriptions: No Action furosemide 40 mg Tablet 40 mg PO BID@08,16 30 Days Qty: 60 RF: 0 atorvastatin 40 mg Tablet 40 mg PO BEDTIME 30 Days Qty: 30 RF: 0 acetaminophen 325 mg Tablet 650 mg PO Q6H PRN (Reason: Mild/Mod Pain Or Temp >/= 101) Qty: 30 RF: 0 aspirin 325 mg Tablet 325 mg PO DAILY 30 Days Qty: 30 RF: 0 sennosides-docusate sodium 8.6-50 mg Tablet 2 tab PO BID 30 Days Qty: 120 RF: 0 Vitamin B-12 1,000 mcg Tablet 1,000 mcg PO DAILY 30 Days Qty: 30 RF: 0 folic acid 1 mg Tablet 1 mg PO DAILY 30 Days Qty: 30 RF: 0 metoprolol tartrate 25 mg Tablet 25 mg PO BID 30 Days Qty: 60 RF: 0 Eliquis DVT-PE Treat 30D Start 5 mg (74 tabs) tablets,dose pack See Rx Instructions .ROUTE .COMPLEX Qty: 74 RF: 0 potassium chloride 10 mEq capsule, extended release 10 meq PO BID 30 Days Qty: 60 RF: 0 levothyroxine 175 mcg Tablet 175 mcg PO DAILY 30 Days Qty: 30 RF: 0 Januvia 100 mg PO DAILY 30 Days Qty: 30 RF: 0 fenofibrate 48 mg PO DAILY 30 Days Qty: 30 RF: 0 omeprazole 40 mg PO DAILY 30 Days Qty: 30 RF: 0 Referrals: Viktor Baker MD [Family Provider] - Coding Level of Care Code ED Retail Asset Protection Specialist for Chg Fwd Exam Comprehensive The documentation recorded by the Jesus rodriguez Stephanie Lyn, accurately reflects the service I personally performed and the decisions made by Ashley mckeon Eli N Jun 17, 2019 00:59
[2019-06-17 01:15] LABS: ABG PCO2 38.6 mmHg (35-45); ABG PH Result 7.47 (7.35-7.45); Arterial Blood Gas Hematocrit 31.4 % (37-47); Base Excess ABG 4.1 mmol/L (-2.0-2.0); Blood Gas Allen Test Pos; Blood Gas Sample Site Radial, right; Blood Gas Sample Type Arterial; Oxygen Device BIPAP
[2019-06-17 01:30] LABS: Basophils % 0.2 %; Eosinophils # 0.1 10^3/uL (0.0-0.8); Eosinophils % 1.2 %; Hematocrit 33.3 % (37.0-47.0); Hemoglobin 10.4 g/dL (11.5-15.3); Lymphocytes # 0.9 10^3/uL (0.8-4.8); Lymphocytes % 15.4 %; Mean Corpuscular HGB Conc 31.2 g/dL (30.0-36.0); Mean Corpuscular Hemoglobin 29.7 pg (28.0-34.0); Mean Corpuscular Volume 95.1 fL (81-99); Mean Platelet Volume 9.8 fL (7.4-10.4); Monocytes # 0.4 10^3/uL (0.2-0.9); Monocytes % 6.7 %; Neutrophils # 4.4 10^3/uL (1.8-7.7); Neutrophils % 76.3 %; Nucleated Red Blood Cells % 0 %; Platelet Count 286 10^3/cmm (130-400); Red Cell Distribution Width 15.9 % (12.1-15.1); White Blood Count 5.7 10^3/uL (4.0-10.0)
[2019-06-17] MEDS: ipratropium-albuterol 3 mL Neb INHALATION ×4 (01:35→21:19)
[2019-06-17 01:50] LABS: INR 1.62 (0.8-1.2)
[2019-06-17] MEDS: diphenhydrAMINE 50 mg/mL SDV 1mL 25 MG IVP (01:58)
[2019-06-17 02:03] LABS: Troponin(5th) Baseline 66 ng/mL (0-10)
[2019-06-17 02:11] LABS: Alanine Aminotransferase 7 U/L (0-33); Albumin Level 3.1 g/dL (3.5-5.2); Alkaline Phosphatase 82 IU/L (35-105); Anion Gap 19.2 (5-19); Aspartate Amino Transferase 15 U/L (0-32); Blood Urea Nitrogen 6 mg/dL (8-23); Carbon Dioxide 27 mmol/L (22-29); Chloride 93 mmol/L (98-107); Creatinine Clr Calc Pharmacy 42.1949; Globulin 3.5 g/dL (1.3-4.6); Glucose 111 mg/dL (65-115); Magnesium 1.1 mg/dL (1.7-2.3); NT Pro B Type Natriuretic Pept 625 pg/mL (0-450); Osmolality Calculated 278 mOsm/kg (285-295); Potassium 3.2 mmol/L (3.5-5.1); Sodium 136 mmol/L (136-145); Total Bilirubin 0.6 mg/dL (0.15-1.2); Total Protein 6.6 g/dL (6.6-8.7)
[2019-06-17] MEDS: nitroglycerin 1 gm/inch oint Pkt 1 INCH TOPICAL (02:12)
[2019-06-17 02:16] LABS: Calcium 5.9 mg/dL (8.5-10.5)
--- NOTE | 2019-06-17 02:17 | PC.NURSE ---
Calcium 5.9, notified DR. Ramirez, no orders given at this time
[2019-06-17] MEDS: calcium gluconate 0.1 gm/mL 10% SDV 10mL 1 GM IVP (02:21)
[2019-06-17 02:36] LABS: Urine Appearance Hazy (CLEAR); Urine Color Yellow (Yellow)
[2019-06-17 02:37] LABS: Bilirubin Urine Neg (NEGATIVE); Blood Urine Neg (Negative); Glucose Urine UA Norm (Normal); Ketones Urine Negative (Negative); Leukocyte Esterase Urine Negative (Negative); Nitrate Urine Negative (Negative); Protein Urine Neg (Negative); Urobilinogen Urine Norm (Negative); pH Urine 6 (5-7)
[2019-06-17 02:38] LABS: RBC Urine 0-4 /hpf (0-2)
[2019-06-17 02:39] LABS: Add Urine Culture? No; Bacteria Urine 2+; Hyaline Casts Urine 0-4
--- NOTE | 2019-06-17 02:41 | PC.NURSE ---
Patient complained of itching and redness after IV solu-medrol, dr harper notified, verbal order for Benadryl 25 mg IVP
--- NOTE | 2019-06-17 02:59 | ECG_ITS ---
Measurements Intervals [place] Rate: 64 P: 79 VA: 158 QRS: 13 QRSD: 85 T: 57 QT: 465 QTc: 481 SINUS RHYTHM PROLONGED QT INTERVAL Compared to ECG 05/11/2019 04:19:34 Prolonged QT interval now present ST (T wave) deviation no longer present Electronically Signed On 06-17-2019 8:49:48 CDT by Apollo Avery [id number] f
[2019-06-17] MEDS: magnesium sulfate premix 2 GM/50 ML PIGGYBACK IV (03:20)
[2019-06-17 03:25] LABS: Troponin 5 2HR 61.45 ng/mL (0-10)
[2019-06-17 03:46] LABS: Troponin 5 2HR Delta -4.55 ABS# (0-10)
--- NOTE | 2019-06-17 06:09 | PM.HP ---
Providers/Chief Complaint Admitting Physician: Sultana Quiroz MD Chief Complaint: SOB History of Present Illness Michelle Becerra is a 74 year old female with recent admission between 05/08-05/20. 74 year old female with a past medical history of thyroid cancer status post thyroidectomy, hypothyroidism, type 2 diabetes mellitus, hypertension, obstructive sleep apnea not on any medications, GERD recently admitted for decompensated CHF. Unfortunately on day 2 of her admission her respiratory status decompensated and she became unresponsive. She was subsequently intubated and transferred to ICU. She remained intubated with continued diuresis and broad-spectrum IV antibiotics as well. She was found to have an NSTEMI that likely occurred during the aforementioned episode of decreased responsiveness. She was started on anticoagulation with a heparin drip, aspirin, Plavix, beta-masha, statin and remained on medical management while intubated. She was extubated 05/14. Cardiology was consulted and recommended outpatient stress testing to allow for complete recovery and as patient cannot tolerate procedure at this time. She has completed her antibiotic course and follow-up imaging has shown resolution of pneumonia. Due to poor peripheral IV access particularly while on mechanical ventilation patient had a PICC line placed. Unfortunately, she was noted to develop a left upper extremity basilic vein DVT at which point the PICC line was discontinued and she was started on therapeutic anticoagulation. She was evaluated by speech therapy following extubation and has been on a mechanical soft diet with thin liquids. She is to continue aspiration precautions. She was discharged with 3 L nasal cannula and was discharged to SNF. She returns today brought by EMS with worsening SOB and leg swelling. She has received 80mg iv lasix by EMS en route. She is currently on 2lpm NC and saturating 98%. She had some chest pain and received topical nitro with relief of symptoms. ABG shows pH of 7.47/CO2 30.6/PO2 156/28 on bipap, hypokalemia K 3.2, cr 1.2, ca 5.9, mag 1.1. Hypokalemia, hypomagnesemia and hypocalcemia has been supplemented in the ED. Baseline troponin is 66, of note on May 11 this was greater than 1000. BNP 625, better than previous admission. Review of Systems General: Reports: 10 or more systems reviewed and unremarkable except in HPI and below Const: Denies: fever, chills or body aches Eyes: Denies: change in vision, blurry vision or photophobia ENMT: Reports: hoarseness; Denies: throat pain, enlarged tonsils, painful swallowing or nasal congestion Card: Reports: chest pain, swelling of feet/ankles, shortness of breath on exertion and shortness of breath when lying down; Denies: palpitations, irregular heart rhythm, edema, lightheadedness or pre-syncope Resp: Denies: shortness of breath, productive cough, non-productive cough, wheezing, stridor, pain on inspiration, change in phlegm color, coughing up blood or chest congestion GI: Denies: abdominal pain, nausea, vomiting, vomiting blood, coffee grounds in vomit, difficulty swallowing, heartburn/indigestion, diarrhea, constipation, cramping, change in stool character, blood in stool or black tarry stool : Denies: flank pain, difficulty urinating, painful urination, urinary frequency, urinary urgency, urinary hesitancy or blood in urine Musc: Denies: neck pain, back pain, extremity pain, joint swelling, joint warmth or deformity Neuro: Denies: headache, numbness in extremities, weakness in extremities, changes in sensation, difficulty walking, frequent falls, dizziness, vertigo, behavioral changes, slurred speech or seizure-like activity Psych: Denies: anxiety, depression, suicidal ideation or homicidal ideation Endo: Denies: excessive urination, excessive thirst, tired all the time, cold intolerance or hot flashes Wai/Lymph: Denies: easy bruising or easy bleeding Medications/Allergies Allergies Allergy/AdvReac Type Severity Reaction Status Date / Time methylprednisolone Allergy ALGY-Rash Verified 06/17/19 02:42 [From Solu-Medrol] piperacillin [From Zosyn] Allergy ALGY-Rash Verified 05/08/19 01:41 tazobactam [From Zosyn] Allergy ALGY-Rash Verified 05/08/19 01:41 PFSH Acute PFSH: Medical History GERD (gastroesophageal reflux disease) Hypertension Hypothyroidism Lymphedema Non-insulin dependent type 2 diabetes mellitus Weight loss Surgical History H/O thyroidectomy History of ankle surgery Family History Other Breast cancer CAD (coronary artery disease) Diabetes Hypertension Social History Smoking and tobacco status: never smoked Alcohol intake: never Vitals/I&O/Wt Last Vital Signs Temp 97.9 F 06/17/19 00:58 Pulse 84 06/17/19 03:58 Resp 20 H 06/17/19 03:58 BP 133/53 06/17/19 00:58 Pulse Ox 96 06/17/19 03:58 Weight last 48 hrs Weight 89.811 kg Physical Exam Narrative: EXAM NARRATIVE: GEN: Awake, alert and oriented, no acute distress CVS: S1S2 N RS: B/L basal crepts on exam. Abd: Soft, nt/nd , bs+ GOVERNMENT SERVICES PROFESSIONAL: no focal neuro deficits EXT: Data : 06/17/19 01:17 06/17/19 01:17 A&P Assessment and plan (1) Congestive heart failure: Status: Acute Qualifiers: Heart failure chronicity: acute on chronic Heart failure type: unspecified Qualified Code(s): I50.9 - Heart failure, unspecified Code(s): I50.9 - Heart failure, unspecified (2) Non-insulin dependent type 2 diabetes mellitus: Status: Acute Code(s): E11.9 - Type 2 diabetes mellitus without complications (3) Hypertension: Status: Acute Qualifiers: Hypertension type: essential hypertension Qualified Code(s): I10 - Essential (primary) hypertension Code(s): I10 - Essential (primary) hypertension (4) Hypothyroidism: Status: Acute Qualifiers: Hypothyroidism type: postoperative Qualified Code(s): E89.0 - Postprocedural hypothyroidism Code(s): E03.9 - Hypothyroidism, unspecified (5) Lymphedema: Status: Acute Code(s): I89.0 - Lymphedema, not elsewhere classified (6) Hypokalemia: Status: Acute Code(s): E87.6 - Hypokalemia (7) Hypomagnesemia: Status: Acute Code(s): E83.42 - Hypomagnesemia (8) Hypocalcemia: Status: Acute Code(s): E83.51 - Hypocalcemia Additional A&P Information Admit to [facility] Acute respiratory failure likely 2/2 CHf exacerbation: -Received 1 dose of 80 mg iv Lasix, will order 40mg iv q12h for now, to be titrated based on urine output. - supplemental 02 -Duo nebs - elevated troponin, trending down from previous, doubt current ACS, however patient still endorsing chest pain yesterday, may need stress test now - continue ASA and eliquis Doubt PE since patient on eliquis, improved respiratory status after giving lasix - h/o sleep apnea, does not use CPAP anymore Dvt ppx: eliquis Full code Attestations Medical Necessity Statement*: anticpate >2midnight admission for above Coding Level of Care Code Acute Box Car Loader for [facility] Fwd Diagnoses Congestive heart failure I50.9 Heart failure chronicity: acute on chronic Heart failure type: unspecified Non-insulin dependent type 2 diabetes mellitus E11.9 Hypertension I10 Hypertension type: essential hypertension Hypothyroidism E89.0 Hypothyroidism type: postoperative Lymphedema I89.0 Hypokalemia E87.6 Hypomagnesemia E83.42 Hypocalcemia E83.51
--- NOTE | 2019-06-17 06:53 | PC.NURSE ---
EKG done at 0650 and shown to ER doctor
--- NOTE | 2019-06-17 06:59 | ECG_ITS ---
Measurements Intervals [place] Rate: 68 P: 86 UT: 148 QRS: 26 QRSD: 77 T: 63 QT: 449 QTc: 478 SINUS RHYTHM Compared to ECG 05/11/2019 04:19:34 ST (T wave) deviation no longer present Electronically Signed On 06-17-2019 8:49:35 CDT by Apollo Avery [id number]
[2019-06-17 07:38] LABS: Troponin 5 6HR 49.08 ng/mL (0-10)
[2019-06-17 08:16] LABS: Ionized Calcium 0.7 mmol/L (1.1-1.4)
[2019-06-17] MEDS: enoxaparin 40 mg/0.4 mL Syringe SUBCUT (09:37)
[2019-06-17] MEDS: FUROsemide 10 mg/mL SDV 4mL 40 MG IVP ×2 (09:38→21:27)
[2019-06-17] MEDS: apixaban 5 mg Tablet PO ×2 (09:40→17:18)
[2019-06-17] MEDS: fenofibrate 48 mg Tablet PO (09:41)
[2019-06-17] MEDS: metoprolol tartrate 25 mg Tablet PO ×2 (09:41→17:14)
[2019-06-17] MEDS: levothyroxine 50 mcg Tablet PO (09:41)
[2019-06-17] MEDS: aspirin 325 mg Tablet PO (09:41)
[2019-06-17] MEDS: sennosides-docusate Tablet 2 TAB PO ×2 (09:42→17:13)
[2019-06-17] MEDS: levothyroxine 125 mcg Tablet PO (09:42)
[2019-06-17] MEDS: pantoprazole DR 40 mg Tablet PO (09:42)
--- NOTE | 2019-06-17 10:31 | ECG_ITS ---
Measurements Intervals [place] Rate: 72 P: 97 AR: 156 QRS: -12 QRSD: 90 T: 66 QT: 451 QTc: 495 SINUS RHYTHM PROLONGED QT INTERVAL Compared to ECG 06/17/2019 06:55:48 Prolonged QT interval now present Electronically Signed On 06-17-2019 10:59:46 CDT by Apollo Avery [id number]
--- NOTE | 2019-06-17 10:46 | PC.RESP ---
Patient does not have a qualifying hx of lung disease at this time.
--- NOTE | 2019-06-17 11:33 | P.PN_ITS ---
Subjective Subjective: Interval history: Patient was examined this morning, daughters at bedside, patient stated that she was discharged from [facility] on June 01, states that she lives at home by herself, but her daughter lives in the same apartment complex. Patient states for the last few days she has been having more shortness of breath with exertion, more orthopnea, paroxysmal nocturnal dyspnea, her bilateral lower extremity swelling is minimal today, Patient was found to be hypocalcemic, hypokalemic, hypomagnesemia, patient states that she had a thyroidectomy many years ago for thyroid cancer, she is not sure about of parathyroid gland transplantation, states that she has been having diarrhea for the last few days, has had a poor appetite Vitals/I&O/Wt Last Vital Signs Temp 98.5 F 06/17/19 08:00 Pulse 80 06/17/19 11:27 Resp 20 H 06/17/19 11:27 BP 138/64 06/17/19 11:27 Pulse Ox 94 06/17/19 11:27 06/16/19 06/17/19 06/17/19 22:59 06:59 14:59 Intake Total 150 / 150 140 / 140 Balance 150 / 150 140 / 140 Weight last 48 hrs Weight 89.811 kg Physical Exam Const: COMMON NORMALS: no apparent distress and oriented x3 HENMT: COMMON NORMALS: normocephalic HEAD & SCALP: normocephalic Neck/C-Spine: COMMON NORMALS: no JVD Resp: COMMON NORMALS: normal respiratory effort, no retractions, no use of accessory muscles and clear to auscultation bilaterally AUSCULTATION: clear to auscultation bilaterally Cardio: COMMON NORMALS: no JVD, regular rate, regular rhythm, S1 normal heart sound and S2 normal heart sound RATE: regular rate RHYTHM: regular rhythm HEART SOUNDS: S1 normal and S2 normal GI: COMMON NORMALS: normal to inspection, nondistended, normoactive bowel sounds, soft to palpation, non-tender, no hepatosplenomegaly, no masses and no bruits PALPATION: Yes soft and Yes no hepatosplenomegaly Extremity: COMMON NORMALS: normal capillary refill, no clubbing, cyanosis or edema, no calf tenderness and no pedal edema Neuro: COMMON NORMALS: oriented x3 Psych: COMMON NORMALS: mental status grossly normal Data : 06/17/19 01:17 06/17/19 01:17 A&P Assessment and plan (1) Congestive heart failure: -BNP is elevated, at 625, chest x-ray shows minimal pulmonary vascular congestion, minimal lower extremity edema -Continue Lasix 40 mg every 12 hours, monitor urine output Status: Acute Qualifiers: Heart failure chronicity: acute on chronic Heart failure type: unspecified Qualified Code(s): I50.9 - Heart failure, unspecified Code(s): I50.9 - Heart failure, unspecified (2) Non-insulin dependent type 2 diabetes mellitus: Continue sliding-scale Status: Acute Code(s): E11.9 - Type 2 diabetes mellitus without complications (3) Hypertension: Status: Acute Qualifiers: Hypertension type: essential hypertension Qualified Code(s): I10 - E ssential (primary) hypertension Code(s): I10 - Essential (primary) hypertension (4) Hypothyroidism: Will check TSH, continue levothyroxine 175 Status: Acute Qualifiers: Hypothyroidism type: postoperative Qualified Code(s): E89.0 - Postprocedural hypothyroidism Code(s): E03.9 - Hypothyroidism, unspecified (5) Lymphedema: Status: Acute Code(s): I89.0 - Lymphedema, not elsewhere classified (6) Hypokalemia: Received potassium replacement, recheck potassium Status: Acute Code(s): E87.6 - Hypokalemia (7) Hypomagnesemia: QTC 475 ms, received magnesium replacement, recheck magnesium levels Status: Acute Code(s): E83.42 - Hypomagnesemia (8) Hypocalcemia: Calcium levels 5.9, QTC 475 ms, prolonged, received calcium replacement, repeat calcium levels pending, PTH, vitamin D Status: Acute Code(s): E83.51 - Hypocalcemia (9) NSTEMI (non-ST elevated myocardial infarction): -No active chest pain, baseline troponin 66, 6-hour 49.08, negative delta -No acute ST-T wave changes -Patient was supposed to have a stress test 2 weeks ago, for new onset CHF, however no appointment was made -Depending on how long patient's hospitalization, I will plan on keeping her till Thursday for her stress test -Continue aspirin, statin, Eliquis Status: Acute Code(s): I21.4 - Non-ST elevation (NSTEMI) myocardial infarction (10) DVT (deep venous thrombosis): Is on Eliquis Status: Acute Code(s): I82.409 - Acute embolism and thrombosis of unspecified deep veins of unspecified lower extremity Additional A&P Information Dvt ppx: eliquis Full code Attestations Medical Necessity Statement*: Patient requires continued hospitalization for CHF exacerbation, hypokalemia, hypomagnesemia, hypocalcemia Coding Level of Care Code Acute Quality Control Tester for Chg Fwd Diagnoses Congestive heart failure I50.9 Heart failure chronicity: acute on chronic Heart failure type: unspecified Non-insulin dependent type 2 diabetes mellitus E11.9 Hypertension I10 Hypertension type: essential hypertension Hypothyroidism E89.0 Hypothyroidism type: postoperative Lymphedema I89.0 Hypokalemia E87.6 Hypomagnesemia E83.42 Hypocalcemia E83.51 NSTEMI (non-ST elevated myocardial infarction) I21.4 DVT (deep venous thrombosis) I82.409
[2019-06-17 11:38] LABS: Glucose Point of Care 384 mg/dL (70-110)
[2019-06-17 12:32] LABS: Magnesium 1.6 mg/dL (1.7-2.3)
[2019-06-17 12:54] LABS: Erythrocyte Sedimentation Rate 83 mm/hr (0-15)
[2019-06-17 14:15] LABS: 25 Hydroxy Vitamin D 26 ng/mL (30-100)
--- NOTE | 2019-06-17 14:52 | PC.CHAP ---
Pastoral Care Encounter/Spiritual Assessment Type of Contact [] Declined supervisor reactor fueling visit [] Patient/Family/Request visit [] Outpatient visit [] Follow-up visit [] Physician referral [] Code/Alert [x] Routine visit [] Staff referral [] Actively dying [] Patient sleeping [] Family support [] [] Out of room [] Palliative care [] [] Receiving care in room [] Pre-surgical visit [] Trauma [] Long length of stay [] ICU visit [] Other: Relational/Emotional Strength [x] Patient feels connected with others/family/visitors/staff [] Distress [] Loneliness/isolation [] Abandonment Spirituality of Patient [x] Person of Jaky [] Attends Druze of their Jaky [] Believes in Prayer [] Reads Bible or Jain materials [] There are Spiritual issues to be addressed Live In Caregiver Interventions [x] Prayer [x] Active listening [x] Non-anxious presence [x] Spiritual/emotional support [] Crisis/trauma care [] Spiritual counseling [] Bereavement support [] Provided bereavement packet [] Provided Bible/devotional materials [] Provided toy/stuffed animal, coloring book to patient or family member [] Provided Communion [] Anointing/[place] [] Salvation [x] Completed spiritual assessment [] Other: Impact on Illness or Injury [] Angry [] Fearful [] Anxious [] Often cries [] Exhaustion [] Unable to work [] Unable to attend christianity [] Unable to walk/stand [] Unable to read [] Unable to drive [] Unable to eat/drink [] Unable to sleep [] Unable to be with family [] Patient intubated [x] Other: Patient is short of breath Summary Patient is doing well and catching her breath easier. Time spent with patient 10 min
[2019-06-17 16:58] LABS: Glucose Point of Care 186 mg/dL (70-110)
[2019-06-17 18:11] LABS: Alanine Aminotransferase 7 U/L (0-33); Albumin Level 3.3 g/dL (3.5-5.2); Alkaline Phosphatase 89 IU/L (35-105); Anion Gap 19.3 (5-19); Aspartate Amino Transferase 15 U/L (0-32); Blood Urea Nitrogen 10 mg/dL (8-23); Calcium 6.2 mg/dL (8.5-10.5); Carbon Dioxide 28 mmol/L (22-29); Chloride 90 mmol/L (98-107); Glucose 182 mg/dL (65-115); Lipase 62 U/L (13-60); Magnesium 1.7 mg/dL (1.7-2.3); Osmolality Calculated 279 mOsm/kg (285-295); Phosphorus 3.8 mg/dL (2.5-4.5); Potassium 3.3 mmol/L (3.5-5.1); Sodium 134 mmol/L (136-145); Thyroid Stimulating Hormone 0.39 uIU/mL (0.27-4.20); Total Bilirubin 0.4 mg/dL (0.15-1.2); Total Protein 7.3 g/dL (6.6-8.7)
[2019-06-17] MEDS: potassium chloride oral liq 20 mEq/15 mL UDC 10 MEQ PO (18:26)
[2019-06-17 18:48] LABS: Parathyroid Hormone 33.8 pg/mL (15-65)
[2019-06-17 20:46] LABS: Glucose Point of Care 149 mg/dL (70-110)
[2019-06-17] MEDS: atorvastatin 40 mg Tablet PO (21:27)
[2019-06-17] MEDS: calcium carbonate 500 mg Chew Tablet 1000 MG PO (21:27)
--- NOTE | 2019-06-17 23:27 | PC.NURSE ---
Patient refused K-rider due to burning to IV site. Informed Dr Quiroz and received order for one time dose of potassium 40mEq oral solution. K-rider wasted.
[2019-06-17] MEDS: potassium chloride oral liq 20 mEq/15 mL UDC 40 MEQ PO (23:32)
[2019-06-18] VITALS (15 sets, daily range): BP systolic 102–132; BP diastolic 38–73; PULSE 67–83; RESP 16–69; TEMP 36.5–36.8; O2SAT 96–100
[2019-06-18] MEDS: calcium carbonate 500 mg Chew Tablet 1000 MG PO ×4 (01:48→17:23)
[2019-06-18] MEDS: ipratropium-albuterol 3 mL Neb INHALATION ×4 (02:23→20:51)
[2019-06-18 05:04] LABS: Eosinophils % 0.1 %; Hemoglobin 10.3 g/dL (11.5-15.3); Lymphocytes # 0.5 10^3/uL (0.8-4.8); Lymphocytes % 5.8 %; Mean Corpuscular HGB Conc 31.2 g/dL (30.0-36.0); Mean Corpuscular Hemoglobin 29.8 pg (28.0-34.0); Mean Corpuscular Volume 95.4 fL (81-99); Mean Platelet Volume 10.1 fL (7.4-10.4); Monocytes # 0.4 10^3/uL (0.2-0.9); Monocytes % 4.4 %; Neutrophils # 8.2 10^3/uL (1.8-7.7); Neutrophils % 89.2 %; Nucleated Red Blood Cells % 0 %; Platelet Count 300 10^3/cmm (130-400); Red Blood Count 3.46 10^6/uL (4.1-5.3); Red Cell Distribution Width 15.8 % (12.1-15.1); White Blood Count 9.2 10^3/uL (4.0-10.0)
[2019-06-18 05:20] LABS: Alanine Aminotransferase 6 U/L (0-33); Albumin Level 3.3 g/dL (3.5-5.2); Alkaline Phosphatase 87 IU/L (35-105); Anion Gap 16.7 (5-19); Aspartate Amino Transferase 13 U/L (0-32); Blood Urea Nitrogen 12 mg/dL (8-23); Calcium 6.3 mg/dL (8.5-10.5); Carbon Dioxide 31 mmol/L (22-29); Chloride 93 mmol/L (98-107); Globulin 3.9 g/dL (1.3-4.6); Glucose 129 mg/dL (65-115); Magnesium 1.6 mg/dL (1.7-2.3); Osmolality Calculated 282 mOsm/kg (285-295); Phosphorus 4.5 mg/dL (2.5-4.5); Potassium 3.7 mmol/L (3.5-5.1); Sodium 137 mmol/L (136-145); Total Bilirubin 0.4 mg/dL (0.15-1.2); Total Protein 7.2 g/dL (6.6-8.7)
[2019-06-18] MEDS: FUROsemide 10 mg/mL SDV 4mL 40 MG IVP (06:24)
[2019-06-18] MEDS: enoxaparin 40 mg/0.4 mL Syringe SUBCUT (06:24)
[2019-06-18] MEDS: potassium chloride oral liq 20 mEq/15 mL UDC 10 MEQ PO (08:38)
[2019-06-18] MEDS: levothyroxine 125 mcg Tablet PO (08:40)
[2019-06-18] MEDS: metoprolol tartrate 25 mg Tablet PO ×2 (08:40→17:23)
[2019-06-18] MEDS: levothyroxine 50 mcg Tablet PO (08:40)
[2019-06-18] MEDS: apixaban 5 mg Tablet PO ×2 (08:40→17:23)
[2019-06-18] MEDS: pantoprazole DR 40 mg Tablet PO (08:40)
[2019-06-18] MEDS: sennosides-docusate Tablet 2 TAB PO ×2 (08:40→17:23)
[2019-06-18] MEDS: aspirin 325 mg Tablet PO (08:40)
[2019-06-18] MEDS: fenofibrate 48 mg Tablet PO (08:40)
[2019-06-18] MEDS: magnesium sulfate premix 2 GM/50 ML PIGGYBACK IV (09:58)
[2019-06-18 11:21] LABS: Glucose Point of Care 148 mg/dL (70-110)
--- NOTE | 2019-06-18 15:25 | PC.CHAP ---
Pastoral Care Encounter/Spiritual Assessment Type of Contact [] Declined student affairs vice president visit [] Patient/Family/Request visit [] Outpatient visit [] Follow-up visit [] Physician referral [] Code/Alert [X] Routine visit [] Staff referral [] Actively dying [] Patient sleeping [] Family support [] [] Out of room [] Palliative care [] [] Receiving care in room [] Pre-surgical visit [] Trauma [] Long length of stay [] ICU visit [] Other: Relational/Emotional Strength [] Patient feels connected with others/family/visitors/staff [] Distress [] Loneliness/isolation [] Abandonment Spirituality of Patient [] Person of Jaky [] Attends Tenriism of their Jaky [] Believes in Prayer [] Reads Bible or Baptist materials [] There are Spiritual issues to be addressed Manager Enterprise Content Management Interventions [] Prayer [] Active listening [] Non-anxious presence [] Spiritual/emotional support [] Crisis/trauma care [] Spiritual counseling [] Bereavement support [] Provided bereavement packet [] Provided Bible/devotional materials [] Provided toy/stuffed animal, coloring book to patient or family member [] Provided Communion [] Anointing/[place] [] Salvation [] Completed spiritual assessment [] Other: Impact on Illness or Injury [] Angry [] Fearful [] Anxious [] Often cries [] Exhaustion [] Unable to work [] Unable to attend restoration [] Unable to walk/stand [] Unable to read [] Unable to drive [] Unable to eat/drink [] Unable to sleep [] Unable to be with family [] Patient intubated [] Other: Summary Time spent with patient
--- NOTE | 2019-06-18 15:58 | PM.PN ---
Subjective Subjective: Interval history: Patient is sitting up into a chair today, states that she is doing well, is requiring 2 L oxygen, states that she only uses oxygen at night, no fevers, no chills, no cough, no chest pain Vitals/I&O/Wt Last Vital Signs Temp 97.9 F 06/18/19 15:34 Pulse 76 06/18/19 15:34 Resp 23 H 06/18/19 15:34 BP 130/73 06/18/19 15:34 Pulse Ox 99 06/18/19 15:34 06/18/19 06/18/19 06/18/19 06:59 14:59 22:59 Intake Total 120 / 760 720 / 720 Output Total 100 / 350 450 / 450 Balance 20 / 410 270 / 270 Weight last 48 hrs Weight 83.098 kg Weight 8392.366 kg Weight 82.01 kg Weight 89.811 kg Physical Exam Const: COMMON NORMALS: no apparent distress and oriented x3 HENMT: COMMON NORMALS: normocephalic HEAD & SCALP: normocephalic Neck/C-Spine: COMMON NORMALS: no JVD Resp: COMMON NORMALS: normal respiratory effort, no retractions, no use of accessory muscles and clear to auscultation bilaterally AUSCULTATION: clear to auscultation bilaterally Cardio: COMMON NORMALS: no JVD, regular rate, regular rhythm, S1 normal heart sound and S2 normal heart sound RATE: regular rate RHYTHM: regular rhythm HEART SOUNDS: S1 normal and S2 normal GI: COMMON NORMALS: normal to inspection, nondistended, normoactive bowel sounds, soft to palpation, non-tender, no hepatosplenomegaly, no masses and no bruits PALPATION: Yes soft and Yes no hepatosplenomegaly Extremity: COMMON NORMALS: normal capillary refill, no clubbing, cyanosis or edema, no calf tenderness and no pedal edema Neuro: COMMON NORMALS: oriented x3 Psych: COMMON NORMALS: mental status grossly normal Data : 06/18/19 04:24 06/18/19 04:24 Micro: Microbiology 06/17/19 14:16 C.difficile Toxin B Gene (PCR) - Final Stool A&P Assessment and plan (1) Congestive heart failure: -BNP is elevated, at 625, chest x-ray shows minimal pulmonary vascular congestion, minimal lower extremity edema -Continue Lasix 40 mg every 12 hours, monitor urine output Status: Acute Qualifiers: Heart failure chronicity: acute on chronic Heart failure type: unspecified Qualified Code(s): I50.9 - Heart failure, unspecified Code(s): I50.9 - Heart failure, unspecified (2) Non-insulin dependent type 2 diabetes mellitus: Continue sliding-scale Status: Acute Code(s): E11.9 - Type 2 diabetes mellitus without complications (3) Hypertension: Status: Acute Qualifiers: Hypertension type: essential hypertension Qualified Code(s): I10 - Essential (primary) hypertension Code(s): I10 - Essential (primary) hypertension (4) Hypothyroidism: Will check TSH, continue levothyroxine 175 Status: Acute Qualifiers: Hypothyroidism type: postoperative Qualified Code(s): E89.0 - Postprocedural hypothyroidism Code(s): E03.9 - Hypothyroidism, unspecified (5) Lymphedema: Status: Acute Code(s): I89.0 - Lymphedema, not elsewhere classified (6) Hypokalemia: Received potassium replacement, recheck potassium Status: Acute Code(s): E87.6 - Hypokalemia (7) Hypomagnesemia: QTC 475 ms, received magnesium replacement, recheck magnesium levels Status: Acute Code(s): E83.42 - Hypomagnesemia (8) Hypocalcemia: Calcium levels 5.9, QTC 475 ms, prolonged, received calcium replacement, repeat calcium levels pending, PTH, vitamin D Status: Acute Code(s): E83.51 - Hypocalcemia (9) NSTEMI (non-ST elevated myocardial infarction): -No active chest pain, baseline troponin 66, 6-hour 49.08, negative delta -No acute ST-T wave changes -Patient was supposed to have a stress test 2 weeks ago, for new onset CHF, however no appointment was made -Depending on how long patient's hospitalization, I will plan on keeping her till Thursday for her stress test -Continue aspirin, statin, Eliquis Status: Acute Code(s): I21.4 - Non-ST elevation (NSTEMI) myocardial infarction (10) DVT (deep venous thrombosis): Is on Eliquis Status: Acute Code(s): I82.409 - Acute embolism and thrombosis of unspecified deep veins of unspecified lower extremity Additional A&P Information Dvt ppx: eliquis Full code Attestations Medical Necessity Statement*: Patient requires continued hospitalization due to hypocalcemia, hypomagnesemia, CHF, and NSTEMI Coding Level of Care Code Acute Materials And Corrosion Engineer for Chg Fwd Diagnoses Congestive heart failure I50.9 Heart failure chronicity: acute on chronic Heart failure type: unspecified Non-insulin dependent type 2 diabetes mellitus E11.9 Hypertension I10 Hypertension type: essential hypertension Hypothyroidism E89.0 Hypothyroidism type: postoperative Lymphedema I89.0 Hypokalemia E87.6 Hypomagnesemia E83.42 Hypocalcemia E83.51 NSTEMI (non-ST elevated myocardial infarction) I21.4 DVT (deep venous thrombosis) I82.409
[2019-06-18 17:00] LABS: Glucose Point of Care 117 mg/dL (70-110)
[2019-06-18] MEDS: potassium chloride oral liq 20 mEq/15 mL UDC PO (17:22)
[2019-06-18] MEDS: magnesium oxide 400 mg tablet PO (17:23)
[2019-06-18] MEDS: doxycycline 100 mg Tablet PO (17:23)
[2019-06-18 20:45] LABS: Glucose Point of Care 172 mg/dL (70-110)
[2019-06-18] MEDS: atorvastatin 40 mg Tablet PO (21:01)
[2019-06-19] VITALS (11 sets, daily range): BP systolic 110–149; BP diastolic 52–64; PULSE 77–87; RESP 16–27; TEMP 36.6–37; O2SAT 94–99
[2019-06-19] MEDS: calcium carbonate 500 mg Chew Tablet 1000 MG PO ×4 (01:47→18:32)
[2019-06-19] MEDS: ipratropium-albuterol 3 mL Neb INHALATION ×4 (02:24→20:12)
[2019-06-19 05:41] LABS: Magnesium 2.1 mg/dL (1.7-2.3); Phosphorus 4.1 mg/dL (2.5-4.5)
[2019-06-19 05:42] LABS: Alanine Aminotransferase 6 U/L (0-33); Albumin Level 3.2 g/dL (3.5-5.2); Alkaline Phosphatase 77 IU/L (35-105); Anion Gap 19.1 (5-19); Aspartate Amino Transferase 13 U/L (0-32); Blood Urea Nitrogen 13 mg/dL (8-23); Calcium 6.5 mg/dL (8.5-10.5); Carbon Dioxide 25 mmol/L (22-29); Chloride 91 mmol/L (98-107); Globulin 3.4 g/dL (1.3-4.6); Glucose 109 mg/dL (65-115); Osmolality Calculated 269 mOsm/kg (285-295); Potassium 4.1 mmol/L (3.5-5.1); Sodium 131 mmol/L (136-145); Total Bilirubin 0.5 mg/dL (0.15-1.2); Total Protein 6.6 g/dL (6.6-8.7)
[2019-06-19 06:18] LABS: Glucose Point of Care 117 mg/dL (70-110)
[2019-06-19] MEDS: enoxaparin 40 mg/0.4 mL Syringe SUBCUT (06:30)
--- NOTE | 2019-06-19 08:41 | ECG_ITS ---
Measurements Intervals [place] Rate: 87 P: 69 TX: 139 QRS: -3 QRSD: 85 T: 53 QT: 370 QTc: 447 SINUS RHYTHM WARNING: DATA QUALITY MAY AFFECT INTERPRETATION Compared to ECG 06/17/2019 09:05:33 Prolonged QT interval no longer present Electronically Signed On 06-19-2019 9:11:44 CDT by Apollo Avery [email or web address]
[2019-06-19] MEDS: FUROsemide 10 mg/mL SDV 4mL 40 MG IVP (09:49)
[2019-06-19] MEDS: sennosides-docusate Tablet 2 TAB PO ×2 (09:49→18:32)
[2019-06-19] MEDS: cholecalciferol (vitamin D3) 1,000 unit Tablet 2000 UNIT PO (09:49)
[2019-06-19] MEDS: levothyroxine 125 mcg Tablet PO (09:49)
[2019-06-19] MEDS: magnesium oxide 400 mg tablet PO ×2 (09:49→18:32)
[2019-06-19] MEDS: levothyroxine 50 mcg Tablet PO (09:50)
[2019-06-19] MEDS: apixaban 5 mg Tablet PO ×2 (09:50→18:32)
[2019-06-19] MEDS: fenofibrate 48 mg Tablet PO (09:50)
[2019-06-19] MEDS: metoprolol tartrate 25 mg Tablet PO ×2 (09:50→18:32)
[2019-06-19] MEDS: aspirin 325 mg Tablet PO (09:50)
[2019-06-19] MEDS: doxycycline 100 mg Tablet PO ×2 (09:50→18:32)
[2019-06-19] MEDS: potassium chloride oral liq 20 mEq/15 mL UDC PO (09:50)
[2019-06-19] MEDS: pantoprazole DR 40 mg Tablet PO (09:50)
[2019-06-19 11:35] LABS: Glucose Point of Care 119 mg/dL (70-110)
--- NOTE | 2019-06-19 12:55 | PM.PN ---
Subjective Subjective: Interval history: This morning patient states that she is feeling well, shortness of breath is minimal, no chest pain, is off oxygen Vitals/I&O/Wt Last Vital Signs Temp 98.2 F 06/19/19 12:00 Pulse 82 06/19/19 12:00 Resp 19 H 06/19/19 12:00 BP 116/57 06/19/19 12:00 Pulse Ox 97 06/19/19 12:00 06/18/19 06/19/19 06/19/19 22:59 06:59 14:59 Intake Total 290 / 1010 220 / 1230 480 / 480 Output Total 600 / 1050 350 / 1400 500 / 500 Balance -310 / -40 -130 / -170 -20 / -20 Weight last 48 hrs Weight 85.729 kg Weight 83.098 kg Weight 8392.366 kg Physical Exam Const: COMMON NORMALS: no apparent distress and oriented x3 HENMT: COMMON NORMALS: normocephalic HEAD & SCALP: normocephalic Neck/C-Spine: COMMON NORMALS: no JVD Resp: COMMON NORMALS: normal respiratory effort, no retractions, no use of accessory muscles and clear to auscultation bilaterally AUSCULTATION: clear to auscultation bilaterally Cardio: COMMON NORMALS: no JVD, regular rate, regular rhythm, S1 normal heart sound and S2 normal heart sound RATE: regular rate RHYTHM: regular rhythm HEART SOUNDS: S1 normal and S2 normal GI: COMMON NORMALS: normal to inspection, nondistended, normoactive bowel sounds, soft to palpation, non-tender, no hepatosplenomegaly, no masses and no bruits PALPATION: Yes soft and Yes no hepatosplenomegaly Extremity: COMMON NORMALS: normal capillary refill, no clubbing, cyanosis or edema, no calf tenderness and no pedal edema Neuro: COMMON NORMALS: oriented x3 Psych: COMMON NORMALS: mental status grossly normal Data : 06/18/19 04:24 06/19/19 02:45 A&P Assessment and plan (1) Congestive heart failure: -BNP is elevated, at 625, chest x-ray shows minimal pulmonary vascular congestion, minimal lower extremity edema -Creatinine has increased to 1.5, decrease Lasix to 40 mg once daily, monitor urine output Status: Acute Qualifiers: Heart failure chronicity: acute on chronic Heart failure type: unspecified Qualified Code(s): I50.9 - Heart failure, unspecified Code(s): I50.9 - Heart failure, unspecified (2) Non-insulin dependent type 2 diabetes mellitus: Continue sliding-scale Status: Acute Code(s): E11.9 - Type 2 diabetes mellitus without complications (3) Hypertension: Status: Acute Qualifiers: Hypertension type: essential hypertension Qualified Code(s): I10 - Essential (primary) hypertension Code(s): I10 - Essential (primary) hypertension (4) Hypothyroidism: Will check TSH, continue levothyroxine 175 Status: Acute Qualifiers: Hypothyroidism type: postoperative Qualified Code(s): E89.0 - Postprocedural hypothyroidism Code(s): E03.9 - Hypothyroidism, unspecified (5) Lymphedema: Status: Acute Code(s): I89.0 - Lymphedema, not elsewhere classified (6) Hypokalemia: Received potassium replacement, recheck potassium Status: Acute Code(s): E87.6 - Hypokalemia (7) Hypomagnesemia: received magnesium replacement, recheck magnesium levels Status: Acute Code(s): E83.42 - Hypomagnesemia (8) Hypocalcemia: -Calcium levels remain 6.5 -Vitamin D levels are low -Interestingly patient's PTH levels 33.8 -Patient status post thyroidectomy for thyroid cancer, I presume she had transposition of her parathyroid glands -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 midnight, cardiac stress test tomorrow -Continue aspirin, statin, Eliquis Status: Acute Code(s): I21.4 - Non-ST elevation (NSTEMI) myocardial infarction (10) DVT (deep venous thrombosis): Is on Eliquis Status: Acute Code(s): I82.409 - Acute embolism and thrombosis of unspecified deep veins of unspecified lower extremity Additional A&P Information Dvt ppx: eliquis Full code Attestations Medical Necessity Statement*: Requesting hospitalization for chest pain, requiring stress test tomorrow, hypocalcemia, hypokalemia, hypomagnesemia Coding Level of Care Code Acute Printing And Stamping Supervisor for Chg Fwd Diagnoses Congestive heart failure I50.9 Heart failure chronicity: acute on chronic Heart failure type: unspecified Non-insulin dependent type 2 diabetes mellitus E11.9 Hypertension I10 Hypertension type: essential hypertension Hypothyroidism E89.0 Hypothyroidism type: postoperative Lymphedema I89.0 Hypokalemia E87.6 Hypomagnesemia E83.42 Hypocalcemia E83.51 NSTEMI (non-ST elevated myocardial infarction) I21.4 DVT (deep venous thrombosis) I82.409
--- NOTE | 2019-06-19 12:59 | ECG_ITS ---
NAME OF STUDY: LEXISCAN SESTAMIBI STRESS TEST INDICATION: Chest Pain, NOTE: Please note that this is the electrocardiogram portion of the Lexiscan/Sestamibi stress test. The perfusion scan will be documented separately. DATA: Baseline heart rate was 78 beats per minute. Baseline blood pressure was 121/53 millimeters of mercury. Target heart rate was 145. Maximum heart rate achieved was 112. which was 77 % of the predicted target heart rate. Maximum blood pressure was 179/81 millimeters of mercury. The reason for ending the test was completion of the protocol. The patient did not experience any symptoms. ELECTROCARDIOGRAM: BASELINE: Sinus rhythm. Normal axis. Otherwise, no ST-T changes suggestive of ischemia noted. No arrhythmia noted. EXERCISE: After Lexiscan injection, no ST-T changes suggestive of ischemic noted. No arrhythmia noted. Conclusion: 1. EKG not suggestive of ischemia 2. Lexiscan injection unremarkable. 3. Perfusion scan will be documented separately. Electronically Signed On 06-20-2019 21:04:25 CDT by Eddie Avery M.D. [id number]
[2019-06-19 16:26] LABS: Glucose Point of Care 132 mg/dL (70-110)
[2019-06-19 20:42] LABS: Glucose Point of Care 155 mg/dL (70-110)
[2019-06-19] MEDS: atorvastatin 40 mg Tablet PO (21:01)
[2019-06-20] VITALS (13 sets, daily range): BP systolic 101–157; BP diastolic 43–65; PULSE 67–92; RESP 16–31; TEMP 36.6–37; O2SAT 92–99
[2019-06-20] MEDS: calcium carbonate 500 mg Chew Tablet 1000 MG PO ×4 (01:19→18:12)
[2019-06-20] MEDS: ipratropium-albuterol 3 mL Neb INHALATION ×2 (02:13→14:13)
[2019-06-20 04:20] LABS: Alanine Aminotransferase < 5 U/L (0-33); Albumin Level 3.2 g/dL (3.5-5.2); Alkaline Phosphatase 71 IU/L (35-105); Anion Gap 15.6 (5-19); Aspartate Amino Transferase 12 U/L (0-32); Blood Urea Nitrogen 15 mg/dL (8-23); Calcium 6.9 mg/dL (8.5-10.5); Carbon Dioxide 30 mmol/L (22-29); Chloride 95 mmol/L (98-107); Globulin 3.2 g/dL (1.3-4.6); Glucose 120 mg/dL (65-115); Osmolality Calculated 279 mOsm/kg (285-295); Potassium 4.6 mmol/L (3.5-5.1); Sodium 136 mmol/L (136-145); Total Bilirubin 0.5 mg/dL (0.15-1.2); Total Protein 6.4 g/dL (6.6-8.7)
[2019-06-20] MEDS: enoxaparin 40 mg/0.4 mL Syringe SUBCUT (06:37)
[2019-06-20 06:46] LABS: Glucose Point of Care 116 mg/dL (70-110)
[2019-06-20] MEDS: regadenoson 0.4 Mg/5 ml Syringe IVP (07:58)
[2019-06-20] MEDS: ondansetron 2 mg/ML SDV 2 mL 4 MG IVP (08:15)
--- NOTE | 2019-06-20 08:51 | NMCV_ITS ---
NM leonidas perf SPECT r/s* [id number] Becerra Age: 74 Gender: F : 1945 Exam Date: 06/20/2019 07:07 Ordering Phys: Gagan Albright MD Technologist: KRYSTEN Don Exam Location: [facility] Indications: SOB STRESS TEST Please see separate stress test report in [facility] for full findings IMAGE PROTOCOL Rest/Stress 1 Lexiscan Day Radiopharmaceutical Dose (mCi) Administration Site Administered by Rest: Tc-99m 10.7 IV KRYSTEN Mccracken Sestamibi Stress:Tc-99m 33.0 IV KRYSTEN Don Sestamiclarke Rest: 20-Jun-2019 60 Discovery 630 Stress: 20-Jun-2019 30 Discovery 630 0.4mg Lexiscan. Supine position only as patient was unable to lay prone. SPECT RESULTS Technical Quality: Good Raw Data Analysis: Subdiaphragmatic activity Image Corrections: No attenuation or motion correction applied Summed Stress Score: 8 Summed Rest Score: 5 Summed Difference Score: 3 PERFUSION FINDINGS Moderate area for mildly decreased tracer uptake in the basal and mid inferolateral, mid and apical inferior, apical lateral and LV apex. There is some reversibility in the mid and apical inferior wall region. FUNCTIONAL RESULTS (calculated via Gated SPECT) Stress Image LV EF (%): 80 Stress EDV (mL):71 TID: 1.06 Stress ESV (mL):14 FUNCTIONAL FINDINGS: (Abnormal urinalysis revealing no gross wall motion abnormalities. IMPRESSIONS #1. Myocardial perfusion imaging revealing a moderate area of moderately decreased tracer uptake in the inferior, inferolateral and apical regions with some reversibility in the inferior wall region, suggestive of myocardial scarring in the distribution of the right coronary artery and circumflex artery with a small area of possible vi-infarction ischemia. #2. Normal LV ejection fraction of 80%. #3. LV wall motion analysis revealing no gross wall motion abnormalities. #4. Normal LV volume. No similar previous studies are available for comparison Dr Yulissa Colon MD FACC (Electronically Signed) Final Date: 20 June 2019 16:51 S
--- NOTE | 2019-06-20 09:08 | PC.NURSE ---
cardiac stress test completed.
[2019-06-20] MEDS: potassium chloride oral liq 20 mEq/15 mL UDC PO (09:16)
[2019-06-20] MEDS: FUROsemide 10 mg/mL SDV 4mL 40 MG IVP ×2 (09:16→17:15)
[2019-06-20] MEDS: levothyroxine 125 mcg Tablet PO (09:17)
[2019-06-20] MEDS: acetaminophen 325 mg Tablet 650 MG PO (09:17)
[2019-06-20] MEDS: levothyroxine 50 mcg Tablet PO (09:17)
[2019-06-20] MEDS: pantoprazole DR 40 mg Tablet PO (09:17)
[2019-06-20] MEDS: aspirin 325 mg Tablet PO (09:18)
[2019-06-20] MEDS: doxycycline 100 mg Tablet PO ×2 (09:18→17:14)
[2019-06-20] MEDS: apixaban 5 mg Tablet PO ×2 (09:18→17:12)
[2019-06-20] MEDS: cholecalciferol (vitamin D3) 1,000 unit Tablet 2000 UNIT PO (09:18)
[2019-06-20] MEDS: metoprolol tartrate 25 mg Tablet PO ×2 (09:18→17:12)
[2019-06-20] MEDS: fenofibrate 48 mg Tablet PO (09:18)
[2019-06-20] MEDS: magnesium oxide 400 mg tablet PO ×2 (09:18→17:12)
--- NOTE | 2019-06-20 10:08 | PC.SOCIAL ---
IMM Update. Pg 2 of IMM given and explained to patient who verbalized understanding. Copy provided to patient and copy in chart updated.
[2019-06-20 11:15] LABS: Glucose Point of Care 196 mg/dL (70-110)
[2019-06-20] MEDS: sennosides-docusate Tablet 2 TAB PO (17:12)
[2019-06-20 17:16] LABS: Glucose Point of Care 132 mg/dL (70-110)
--- NOTE | 2019-06-20 17:24 | P.DS_ITS ---
Discharge Providers Date of Admission: 06/17/19 06:25 Date of Discharge: June 20, 2019 Attending Provider at Admission: Sultana Quiroz MD Attending Provider at Discharge: Claude Parra MD Diagnoses at Discharge Discharge Diagnosis (1) Congestive heart failure: Status: Acute Problem details: Compensated currently. Qualifiers: Heart failure chronicity: acute on chronic Heart failure type: unspecified Qualified Code(s): I50.9 - Heart failure, unspecified (2) Non-insulin dependent type 2 diabetes mellitus: Status: Acute (3) Hypertension: Status: Acute Qualifiers: Hypertension type: essential hypertension Qualified Code(s): I10 - Essential (primary) hypertension (4) Hypothyroidism: Status: Acute Problem details: Well-controlled Qualifiers: Hypothyroidism type: postoperative Qualified Code(s): E89.0 - Postprocedural hypothyroidism (5) Lymphedema: Status: Acute (6) Hypokalemia: Status: Acute (7) Hypomagnesemia: Status: Acute (8) Hypocalcemia: Status: Acute Problem details: Consider outpatient follow-up (9) NSTEMI (non-ST elevated myocardial infarction): Status: Acute (10) DVT (deep venous thrombosis): Status: Acute Problem details: -overnight, noted to have non-functioning PICC line -venous duplex: + DVT in R basilic vein at PICC line insertion site -d/c PICC line -RUE elevation -started on therapeutic anticoagulation with Eliquis; she does have baseline anemia but was on approximately 7 days of a heparin drip with minimal change in her hemoglobin -Will monitor for bleeding and continue to monitor her H&H; hemoglobin stable Reason for Visit Reason for Visit: Reason For Visit: SOB Hospital Course Hospital Course: Michelle is a 74-year-old white female who presented to the hospital with shortness of breath. She had had a previous hospital stay for pneumonia, where non-ST elevation myocardial infarction was noted that was treated medically. During this hospitalization she received IV diuresis, seco ndary to acute diastolic heart failure. During her hospital stay she gradually improved. A nuclear stress test was performed on June 19, and follow-up to her last hospital stay. This demonstrated a normal ejection fraction, myocardial scarring in the region of the inferior wall, and a small area of vi-infarct ischemia. As she was not having any chest discomfort or EKG changes and was clinically stable it was thought she could follow-up as an outpatient for this with cardiology. During her hospital stay a low magnesium and calcium were also noted and she had previous history of thyroid surgery. Primary care provider can evaluate this further as an outpatient, and/or have endocrinology/ENT follow-up. Magnesium level was also low during her hospital stay and this was supplemented. Her Lasix dose was increased while in the hospital. Physical Exam Narrative: EXAM NARRATIVE: General exam is no apparent distress Cardiovascular regular in rhythm without murmur Lungs clear Abdomen is soft with positive bowel sounds Extremities no cyanosis clubbing or edema Discharge Data Data Completed and Pending: Completed Studies During Hospitalization Category Date Time Status XR chest 1V elsa ble [id number] Stat Exams 06/17/19 00:58 Completed NM leonidas perf SPECT r/s* [id number] Routin e Nuc Med 06/20/19 08:51 Completed Pending at discharge Category Date Time Status Sestamibi Stress Test Request Routi ne Exams 06/17/19 08:55 Ordered Sestamibi Stress Test Request Routi ne Exams 06/19/19 12:59 Ordered Comprehensive Met abolic Panel AM LA BS Lab 06/21/19 04:00 Ordered Labs from last 24 hours 06/20/19 06/20/19 06/20/19 16:58 11:10 06:41 Sodium Potassium Chloride Carbon Dioxide Anion Gap BUN Creatinine Glucose POC Glucose 132 196 116 Calculated Osmolal ity Calcium Phosphorus Magnesium Total Bilirubin AST ALT Alkaline Phosphata se Total Protein Albumin Globulin 06/20/19 06/20/19 06/19/19 03:32 03:32 20:35 Sodium 136 Potassium 4.6 Chloride 95 L Carbon Dioxide 30 H Anion Gap 15.6 BUN 15 Creatinine 1.4 H Glucose 120 H POC Glucose 155 Calculated Osmolal ity 279 L Calcium 6.9 L Phosphorus 4.0 Magnesium 2.0 Total Bilirubin 0.5 AST 12 ALT < 5 Alkaline Phosphata se 71 Total Protein 6.4 L Albumin 3.2 L Globulin 3.2 Vitals: Last Vital Signs Temp 97.9 F 06/20/19 16:00 Pulse 72 06/20/19 16:00 Resp 18 06/20/19 16:00 BP 119/55 06/20/19 16:00 Pulse Ox 95 06/20/19 16:00 Discharge Plan Discharge Patient Disposition: Home Health Service Condition: Stable Prescriptions: New calcium carbonate 390 mg calcium (1,000 mg) tablet 390 mg PO TID Qty: 90 RF: 0 magnesium oxide 400 mg magnesium capsule 400 mg PO BID Qty: 60 RF: 0 doxycycline monohydrate 100 mg Tablet 100 mg PO BID Qty: 14 RF: 0 furosemide [Lasix] 40 mg tablet 60 mg PO BID Qty: 90 RF: 0 Continued furosemide 40 mg Tablet 40 mg PO BID@08,16 30 Days Qty: 60 RF: 0 atorvastatin 40 mg Tablet 40 mg PO BEDTIME 30 Days Qty: 30 RF: 0 acetaminophen 325 mg Tablet 650 mg PO Q6H PRN (Reason: Mild/Mod Pain Or Temp >/= 101) Qty: 30 RF: 0 aspirin 325 mg Tablet 325 mg PO DAILY 30 Days Qty: 30 RF: 0 sennosides-docusate sodium 8.6-50 mg Tablet 2 tab PO BID 30 Days Qty: 120 RF: 0 Vitamin B-12 1,000 mcg Tablet 1,000 mcg PO DAILY 30 Days Qty: 30 RF: 0 folic acid 1 mg Tablet 1 mg PO DAILY 30 Days Qty: 30 RF: 0 metoprolol tartrate 25 mg Tablet 25 mg PO BID 30 Days Qty: 60 RF: 0 Eliquis DVT-PE Treat 30D Start 5 mg (74 tabs) tablets,dose pack See Rx Instructions .ROUTE .COMPLEX Qty: 74 RF: 0 potassium chloride 10 mEq capsule, extended release 10 meq PO BID 30 Days Qty: 60 RF: 0 levothyroxine 175 mcg Tablet 175 mcg PO DAILY 30 Days Qty: 30 RF: 0 Januvia 100 mg PO DAILY 30 Days Qty: 30 RF: 0 fenofibrate 48 mg PO DAILY 30 Days Qty: 30 RF: 0 omeprazole 40 mg PO DAILY 30 Days Qty: 30 RF: 0 Discharge Orders: Discharge Order (Routine); Ordered 06/20/19 Ordered By: Claude Parra Referrals: Viktor Baker MD [Family Provider] - 4-7 days Shawna Turner MD [Physician] - 7-10 days (Follow-up hospitalization for CHF) Discharge Diet: Cardiac Discharge Activity: Increase activity as tolerated Activity Restrictions/Additional Instructions: Home oxygen evaluation prior to discharge Follow-up with cardiology in 1 week BMP in 3 days, magnesium level in 3 days, with primary care provider. Consider further evaluation for hypocalcemia Discharge Attestations Time Spent in Discharge Care*: greater than 30 min Status at Discharge: Cognitive status at discharge: cognitively intact , Behavioral status at discharge: cooperative , Quality Metrics Clinical Quality Measures During this hospital stay, did patient experience: None Coding Level of Care Code Acute Spray Painter for Chg Fwd Diagnoses Congestive heart failure I50.9 Heart failure chronicity: acute on chronic Heart failure type: unspecified Non-insulin dependent type 2 diabetes mellitus E11.9 Hypertension I10 Hypertension type: essential hypertension Hypothyroidism E89.0 Hypothyroidism type: postoperative Lymphedema I89.0 Hypokalemia E87.6 Hypomagnesemia E83.42 Hypocalcemia E83.51 NSTEMI (non-ST elevated myocardial infarction) I21.4 DVT (deep venous thrombosis) I82.409
== END 2019-06-20 18:46 | disposition home health service (06) | DRG 280 ==
LOC: ER 07:28 → CSU 08:03
PROVIDERS: Family Medicine; Admitting Provider Student in an Organized Health Care Education/Training Program; Emergency Provider Emergency Medicine; Family Provider Family Medicine; Visit Provider Internal Medicine
DX: I11.0 Hypertensive heart disease with heart failure (principal); I21.4 Non-ST elevation (NSTEMI) myocardial infarction; I50.33 Acute on chronic diastolic (congestive) heart failure; J96.00 Acute respiratory failure, unspecified whether with hypoxia or hypercapnia; I82.409 Acute embolism and thrombosis of unspecified deep veins of unspecified lower extremity; E11.9 Type 2 diabetes mellitus without complications; E89.0 Postprocedural hypothyroidism; E87.6 Hypokalemia; E83.42 Hypomagnesemia; E83.51 Hypocalcemia; I99.8 Other disorder of circulatory system; Z79.82 Long term (current) use of aspirin; Z79.890 Hormone replacement therapy; Z99.81 Dependence on supplemental oxygen
CPT/HCPCS: 12345; 36415; 36416; 71045; 78452; 80053; 81001; 82306; 82310; 82330; 82803; 82962; 83690; 83735; 83880; 83970; 84100; 84443; 84484; 85025; 85610; 85651; 87493; 93005; 93010; 93017; 94640; 94660; 96372; 96374; 96375; 99283; A9270; A9500; J0610; J1200; J1650; J1815; J1940; J2405; J2785; J2930; J3475; J3480

== ENCOUNTER 2019-07-11 10:33 | Inpatient (IN) | payer MEDICARE, MEDICAID, SELFPAY ==
[2019-07-11] VITALS (14 sets, daily range): BP systolic 108–157; BP diastolic 45–84; PULSE 65–99; RESP 16–24; TEMP 36.6–36.8; O2SAT 96–100; BMI 32.7
--- NOTE | 2019-07-11 10:40 | ED_ITS ---
HPI - SOB/Dyspnea General: Chief Complaint: Shortness of Breath/Dyspnea Stated Complaint: SOB Time Seen by Provider: 07/11/19 10:35 History of Present Illness: HPI Narrative: 74yo female presents with shortness of breath and nonproductive cough. No fever at home she has had some swelling in her legs denies chest pain denies abdominal pain dysuria urgency or frequency. MD elicited complaint: shortness of breath Pertinent past history: COPD Associated symptoms: Reports chest pain; Deny abdominal pain, fever(s), nausea, orthopnea or vomiting Review of Systems Const: Denies: fever, chills, body aches, change in appetite, fatigue or malaise ENMT: Denies: throat pain, ear pain, nasal discharge or nasal congestion Card: Reports: chest pain; Denies: edema, shortness of breath on exertion or shortness of breath when lying down Resp: Reports: shortness of breath; Denies: productive cough or non-productive cough GI: Denies: abdominal pain, nausea, vomiting, vomiting blood, coffee grounds in vomit, diarrhea, constipation, bloating, blood in stool or black tarry stool : Denies: flank pain, difficulty urinating, painful urination, urinary frequency or urinary urgency Skin/Breast: Denies: rash or itching PFSH ED PFSH: Medical History Acute respiratory failure with hypoxia -Required intubation following CODE BLUE, extubated on 05/14 -on diuresis due to anasarca; switch to oral diuretics -Has Mann catheter in place, continue to monitor urine output; removal today -off antibiotic treatment; had been on vancomycin and Levaquin; has noted allergy to Zosyn -CXR (05/18) shows resolution of pneumonia -Echo: EF=64%, no RWMA, G1DD, mild MR, trace AR -afebrile x >24 hrs, vital signs otherwise stable; continue to monitor -continue to monitor renal function, lytes with diuresis -continue to monitor Is & Os, daily weights -telemetry monitoring -sputum cx: mixed nicho; gram stain negative, noted WBCs -blood cx: prelim negative -continue to monitor respiratory status closely -supplemental oxygen as needed -Neb treatments as needed -noted D-dimer elevation, negative PE, negative DVT -very low suspicion for possible aspiration but if continued fever and/or hemodynamic instability may need to include anaerobic coverage; not needed CAD (coronary artery disease) Hypertension Hypothyroidism Well-controlled Lymphedema Macrocytic anemia -has chronic macrocytic anemia; has evidence of vitamin B12 and folate deficiency -replacing vitamin B12, folate -also noted evidence of low iron though ferritin is normal -had reported black stools -baseline Hg is around 11; continue to monitor H/H closely; has been gradually trending down -on PPI Non-insulin dependent type 2 diabetes mellitus NSTEMI (non-ST elevated myocardial infarction) -Noted to have significantly elevated troponins with a delta over 90 which may have precipitated code -Given current need for continued ventilator support, will continue medical management, was already started on a heparin drip, statin, full dose aspirin and Plavix; d/c heparin drip -No acute ischemic changes noted on EKG -Echo done previously as noted below with no noted regional wall motion abnormalities -Continue telemetry monitoring -Cardiology consult by Dr. Turner appreciated; will need outpatient stress testing Surgical History H/O thyroidectomy History of ankle surgery Family History Other Breast cancer CAD (coronary artery disease) Diabetes Hypertension Social History Smoking and tobacco status: never smoked Alcohol intake: never Lives independently: Yes Household members: none Housing: Apartment Current occupational status: disabled History of recent travel: No Current gender identity: Female Physical Exam Const: COMMON NORMALS: no apparent distress GENERAL APPEARANCE: cooperative and comfortable ORIENTATION/CONSCIOUSNESS: Yes awake, Yes oriented to person, Yes oriented to place and Yes oriented to time HENMT: COMMON NORMALS: normocephalic, head/scalp atraumatic, hearing grossly normal bilaterally, external ears normal, EAC's normal, TM's normal bilaterally, nasal mucous membranes and turbinates normal, moist oral mucous membranes and oropharynx normal HEAD & SCALP: normocephalic and atraumatic NOSE: nasal mucous membranes and turbinates normal EXTERNAL EAR: Yes external ears normal EXTERNAL AUDITORY CANAL: EAC's normal TYMPANIC MEMBRANE: TM's normal bilaterally Eye: COMMON NORMALS: PERRL, EOMs intact bilaterally, conjunctivae normal and no scleral icterus CONJUNCTIVA: Yes conjunctivae normal PUPIL: Yes PERRL Neck/C-Spine: COMMON NORMALS: full ROM, no lymphadenopathy, supple and no JVD Lymph: LYMPHATIC: no lymphadenopathy noted and no lymphedema noted Resp: EFFORT & INSPECTION: Yes decreased respiratory effort AUSCULTATION: diminished lung sounds Cardio: COMMON NORMALS: no JVD, regular rate, regular rhythm and no murmurs RATE: regular rate RHYTHM: regular rhythm GI: COMMON NORMALS: soft to palpation and no hepatosplenomegaly AUSCULTATION: Yes normoactive bowel sounds PALPATION: Yes soft, No tender, No guarding and Yes no hepatosplenomegaly Extremity: COMMON NORMALS: normal to inspection, normal capillary refill, no clubbing, cyanosis or edema, no calf tenderness and no pedal edema Neuro: SENSORIUM/ORIENTATION: Yes oriented to person, Yes oriented to place and Yes oriented to time Skin: COMMON NORMALS: no rashes or lesions noted GENERAL SKIN EXAM: no rashes or lesions noted Course Vital Signs: Vital signs: Vital Signs Temperature 97.6 F 07/12/19 12:00 Pulse Rate 71 07/12/19 12:00 Respiratory Rate 21 H 07/12/19 12:00 Blood Pressure 128/68 07/12/19 12:00 Pulse Oximetry 96 07/12/19 12:00 MDM - SOB/Dyspnea MDM Narrative: Medical decision making narrative: Some shortness of breath with exertion. Recently she did have a nuclear stress test that showed some myocardial scarring with some question of vi-infarct ischemia and they decided to do medical management. She is having symptoms again now we will go ahead and put her in and reevaluate. She also little bit of mild congestive heart failure cardiology will see the patient and advise discussed Dr. Person. Lab Data: Labs: Lab Results 07/11/19 07/11/19 07/11/19 Range/Units 10:49 10:55 10:55 WBC 6.3 (4.0-10.0) 10^3/ uL RBC 3.63 L (4.1-5.3) 10^6/u L Hgb 10.4 L (11.5-15.3) g/dL Hct 32.8 L (37.0-47.0) % MCV 90.4 (81-99) fL MCH 28.7 (28.0-34.0) pg MCHC 31.7 (30.0-36.0) g/dL RDW 15.6 H (12.1-15.1) % Plt Count 352 (130-400) 10^3/c mm MPV 9.2 (7.4-10.4) fL Neut % (Auto) 83.5 % Lymph % (Auto) 7.9 % [place] % (Auto) 7.1 % Eos % (Auto) 0.8 % Baso % (Auto) 0.2 % Neut # (Auto) 5.3 (1.8-7.7) 10^3/u L Lymph # (Auto) 0.5 L (0.8-4.8) 10^3/u L [place] # (Auto) 0.5 (0.2-0.9) 10^3/u L Eos # (Auto) 0.1 (0.0-0.8) 10^3/u L Baso # (Auto) 0.0 (0.0-0.1) 10^3/u L Nucleated RBC % (a uto) 0 % Nucleated RBCs # 0.0 /100WBC Specimen Type Arterial Sample Site Brachial, left ABG pH 7.47 H (7.35-7.45) ABG pCO2 36.8 (35-45) mmHg ABG pO2 78.3 L (80.0-100.0) mmH g ABG HCO3 26.7 H (22-26) mmol/L ABG O2 Saturation 96.8 ABG Base Excess 2.9 H (-2.0-2.0) mmol/ L Jordan Test Pos A-a O2 Gradient 25.2 H (5-10) mmHg Hematocrit 32.4 L (37-47) % Hgb O2 Saturation 95.3 (95-100) % Carboxyhemoglobin 0.6 (0.4-20.1) %THgb Methemoglobin 0.9 (0.4-1.5) % Total Hemoglobin 10.6 L (12-16) g/dL Sodium 128.0 L 123 L (131-143) mmol/L Potassium 3.1 L 3.1 L (3.5-5.0) mmol/L Glucose 143.0 H 156 H (70-115) mg/dL Ionized Calcium 0.9 L (1.1-1.4) mmol/L O2 Delivery Device Room air FiO2 21.0 % Dance Therapist ID cak Chloride 83 L (98-107) mmol/L Carbon Dioxide 24 (22-29) mmol/L Anion Gap 19.1 H (5-19) BUN 5 L (8-23) mg/dL Creatinine 1.3 H (0.5-0.9) mg/dL Calculated Osmolal ity 255 L (285-295) mOsm/k g Calcium 7.5 L (8.5-10.5) mg/dL Total Bilirubin 0.4 (0.15-1.2) mg/dL AST 11 (0-32) U/L ALT < 5 (0-33) U/L Alkaline Phosphata se 71 (35-105) IU/L Troponin T Baselin e (0-10) ng/mL Troponin T 120 Min [place] (0-10) ng/mL Delta Troponin T (0-10) ABS# NT-Pro-B Natriuret Pep (0-450) pg/mL Total Protein 6.6 (6.6-8.7) g/dL Albumin 3.1 L (3.5-5.2) g/dL Globulin 3.5 (1.3-4.6) g/dL Lipase 36 (13-60) U/L Procalcitonin (0-0.5) ng/mL TSH (0.27-4.20) uIU/ mL Urine Color (Yellow) Urine Appearance (CLEAR) Urine pH (5-7) Ur Specific Gravit y (1.005-1.030) Urine Protein (Negative) Urine Glucose (UA) (Normal) Urine Ketones (Negative) Urine Blood (Negative) Urine Nitrate (Negative) Urine Bilirubin (NEGATIVE) Urine Urobilinogen (Negative) mg/dL Ur Leukocyte Lisa ase (Negative) Influenza Type A A g (Negative) Influenza Type B A g (Negative) 07/11/19 07/11/19 07/11/19 Range/Units 10:55 11:00 11:40 WBC (4.0-10.0) 10^3/ uL RBC (4.1-5.3) 10^6/u L Hgb (11.5-15.3) g/dL Hct (37.0-47.0) % MCV (81-99) fL MCH (28.0-34.0) pg MCHC (30.0-36.0) g/dL RDW (12.1-15.1) % Plt Count (130-400) 10^3/c mm MPV (7.4-10.4) fL Neut % (Auto) % Lymph % (Auto) % [place] % (Auto) % Eos % (Auto) % Baso % (Auto) % Neut # (Auto) (1.8-7.7) 10^3/u L Lymph # (Auto) (0.8-4.8) 10^3/u L [place] # (Auto) (0.2-0.9) 10^3/u L Eos # (Auto) (0.0-0.8) 10^3/u L Baso # (Auto) (0.0-0.1) 10^3/u L Nucleated RBC % (a uto) % Nucleated RBCs # /100WBC Specimen Type Sample Site ABG pH (7.35-7.45) ABG pCO2 (35-45) mmHg ABG pO2 (80.0-100.0) mmH g ABG HCO3 (22-26) mmol/L ABG O2 Saturation ABG Base Excess (-2.0-2.0) mmol/ L Jordan Test A-a O2 Gradient (5-10) mmHg Hematocrit (37-47) % Hgb O2 Saturation (95-100) % Carboxyhemoglobin (0.4-20.1) %THgb Methemoglobin (0.4-1.5) % Total Hemoglobin (12-16) g/dL Sodium (131-143) mmol/L Potassium (3.5-5.0) mmol/L Glucose (70-115) mg/dL Ionized Calcium (1.1-1.4) mmol/L O2 Delivery Device FiO2 % Dance Therapist ID Chloride (98-107) mmol/L Carbon Dioxide (22-29) mmol/L Anion Gap (5-19) BUN (8-23) mg/dL Creatinine (0.5-0.9) mg/dL Calculated Osmolal ity (285-295) mOsm/k g Calcium (8.5-10.5) mg/dL Total Bilirubin (0.15-1.2) mg/dL AST (0-32) U/L ALT (0-33) U/L Alkaline Phosphata se (35-105) IU/L Troponin T Baselin e 47 H (0-10) ng/mL Troponin T 120 Min [place] (0-10) ng/mL Delta Troponin T (0-10) ABS# NT-Pro-B Natriuret Pep (0-450) pg/mL Total Protein (6.6-8.7) g/dL Albumin (3.5-5.2) g/dL Globulin (1.3-4.6) g/dL Lipase (13-60) U/L Procalcitonin (0-0.5) ng/mL TSH (0.27-4.20) uIU/ mL Urine Color Straw (Yellow) Urine Appearance Clear (CLEAR) Urine pH 6 (5-7) Ur Specific Gravit y 1.005 (1.005-1.030) Urine Protein Neg (Negative) Urine Glucose (UA) Norm (Normal) Urine Ketones Negative (Negative) Urine Blood Neg (Negative) Urine Nitrate Negative (Negative) Urine Bilirubin Neg (NEGATIVE) Urine Urobilinogen Norm (Negative) mg/dL Ur Leukocyte Lisa ase Negative (Negative) Influenza Type A A g Negative (Negative) Influenza Type B A g Negative (Negative) 07/11/19 07/11/19 Range/Units 12:56 12:56 WBC (4.0-10.0) 10^3/ uL RBC (4.1-5.3) 10^6/u L Hgb (11.5-15.3) g/dL Hct (37.0-47.0) % MCV (81-99) fL MCH (28.0-34.0) pg MCHC (30.0-36.0) g/dL RDW (12.1-15.1) % Plt Count (130-400) 10^3/c mm MPV (7.4-10.4) fL Neut % (Auto) % Lymph % (Auto) % [place] % (Auto) % Eos % (Auto) % Baso % (Auto) % Neut # (Auto) (1.8-7.7) 10^3/u L Lymph # (Auto) (0.8-4.8) 10^3/u L [place] # (Auto) (0.2-0.9) 10^3/u L Eos # (Auto) (0.0-0.8) 10^3/u L Baso # (Auto) (0.0-0.1) 10^3/u L Nucleated RBC % (a uto) % Nucleated RBCs # /100WBC Specimen Type Sample Site ABG pH (7.35-7.45) ABG pCO2 (35-45) mmHg ABG pO2 (80.0-100.0) mmH g ABG HCO3 (22-26) mmol/L ABG O2 Saturation ABG Base Excess (-2.0-2.0) mmol/ L Jordan Test A-a O2 Gradient (5-10) mmHg Hematocrit (37-47) % Hgb O2 Saturation (95-100) % Carboxyhemoglobin (0.4-20.1) %THgb Methemoglobin (0.4-1.5) % Total Hemoglobin (12-16) g/dL Sodium (131-143) mmol/L Potassium (3.5-5.0) mmol/L Glucose (70-115) mg/dL Ionized Calcium (1.1-1.4) mmol/L O2 Delivery Device FiO2 % Dance Therapist ID Chloride (98-107) mmol/L Carbon Dioxide (22-29) mmol/L Anion Gap (5-19) BUN (8-23) mg/dL Creatinine (0.5-0.9) mg/dL Calculated Osmolal ity (285-295) mOsm/k g Calcium (8.5-10.5) mg/dL Total Bilirubin (0.15-1.2) mg/dL AST (0-32) U/L ALT (0-33) U/L Alkaline Phosphata se (35-105) IU/L Troponin T Baselin e (0-10) ng/mL Troponin T 120 Min [place] 49.10 H (0-10) ng/mL Delta Troponin T 2.10 (0-10) ABS# NT-Pro-B Natriuret Pep 570 H (0-450) pg/mL Total Protein (6.6-8.7) g/dL Albumin (3.5-5.2) g/dL Globulin (1.3-4.6) g/dL Lipase (13-60) U/L Procalcitonin 0.16 (0-0.5) ng/mL TSH 0.74 (0.27-4.20) uIU/ mL Urine Color (Yellow) Urine Appearance (CLEAR) Urine pH (5-7) Ur Specific Gravit y (1.005-1.030) Urine Protein (Negative) Urine Glucose (UA) (Normal) Urine Ketones (Negative) Urine Blood (Negative) Urine Nitrate (Negative) Urine Bilirubin (NEGATIVE) Urine Urobilinogen (Negative) mg/dL Ur Leukocyte Lisa ase (Negative) Influenza Type A A g (Negative) Influenza Type B A g (Negative) Discharge Plan Discharge Patient Disposition: Admitted As Inpatient Admit Provider: Kishan Riddle Clinical Impression: Congestive heart failure, CAD (coronary artery disease), Hyponatremia, SOB (shortness of breath) Condition: Stable Interventions: ED Discharge Assessment Last Done: 07/11/19 15:04 Discharge Date/Time: 07/11/19 15:24 Coding Level of Care Code ED Manager Part for Chg Fwd Exam Comprehensive
--- NOTE | 2019-07-11 10:42 | XR_ITS ---
WS: [id number] PORTABLE CHEST HISTORY: dyspnea/cough COMPARISON: 06/17/2019, 05/12/2019. Mild hyperinflated lungs. Lingular area of increasing opacification since 06/17/2019. Significant impr ovement in aeration as compared to 05/13/2019. No pleural effusion or pneumothorax. Cardiac size: Normal. Mediastinum/Aorta: Mild atherosclerosis aorta. No osseous abnormality seen. XR/XR chest 1V portable [id number] IMPRESSION: 1. Increasing opacification at the lingula. Mild progression of pneumonia or a telectasis. 2. Partially calcified aorta.
--- NOTE | 2019-07-11 10:43 | ECG_ITS ---
Measurements Intervals [place] Rate: 84 P: 104 [place]: 147 QRS: 15 QRSD: 97 T: 73 QT: 373 QTc: 443 SINUS RHYTHM WITH FREQUENT SUPRAVENTRICULAR PREMATURE COMPLEXES ABNORMAL RHYTHM ECG Compared to ECG 06/19/2019 08:47:48 No significant changes Electronically Signed On 07-11-2019 15:35:26 CDT by Adeel Barrios M.D. [id number] f
[2019-07-11 11:00] LABS: ABG PCO2 36.8 mmHg (35-45); ABG PH Result 7.47 (7.35-7.45); Alveolar-Arterial Oxygen Gradi 25.2 mmHg (5-10); Arterial Blood Gas Hematocrit 32.4 % (37-47); Base Excess ABG 2.9 mmol/L (-2.0-2.0); Blood Gas Allen Test Pos; Blood Gas Sample Site Brachial, left; Blood Gas Sample Type Arterial; Carboxyhemoglobin 0.6 %THgb (0.4-20.1); HCO3 ABG 26.7 mmol/L (22-26); HGB O2 Sat 95.3 % (95-100); Ionized Calcium Level - ABG 0.9 mmol/L (1.1-1.4); Methemoglobin 0.9 % (0.4-1.5); Oxygen Device ROOM AIR; Oxygen Saturation ABG 96.8; PO2 ABG 78.3 mmHg (80.0-100.0); Potassium Level - ABG 3.1 mmol/L (3.5-5.0); Total Hemoglobin 10.6 g/dL (12-16)
[2019-07-11 11:02] LABS: Basophils % 0.2 %; Eosinophils # 0.1 10^3/uL (0.0-0.8); Eosinophils % 0.8 %; Hematocrit 32.8 % (37.0-47.0); Hemoglobin 10.4 g/dL (11.5-15.3); Lymphocytes # 0.5 10^3/uL (0.8-4.8); Lymphocytes % 7.9 %; Mean Corpuscular HGB Conc 31.7 g/dL (30.0-36.0); Mean Corpuscular Hemoglobin 28.7 pg (28.0-34.0); Mean Corpuscular Volume 90.4 fL (81-99); Mean Platelet Volume 9.2 fL (7.4-10.4); Monocytes # 0.5 10^3/uL (0.2-0.9); Monocytes % 7.1 %; Neutrophils # 5.3 10^3/uL (1.8-7.7); Neutrophils % 83.5 %; Nucleated Red Blood Cells % 0 %; Platelet Count 352 10^3/cmm (130-400); Red Blood Count 3.63 10^6/uL (4.1-5.3); Red Cell Distribution Width 15.6 % (12.1-15.1); White Blood Count 6.3 10^3/uL (4.0-10.0)
[2019-07-11 11:22] LABS: Alanine Aminotransferase < 5 U/L (0-33); Albumin Level 3.1 g/dL (3.5-5.2); Alkaline Phosphatase 71 IU/L (35-105); Anion Gap 19.1 (5-19); Aspartate Amino Transferase 11 U/L (0-32); Blood Urea Nitrogen 5 mg/dL (8-23); Calcium 7.5 mg/dL (8.5-10.5); Carbon Dioxide 24 mmol/L (22-29); Chloride 83 mmol/L (98-107); Globulin 3.5 g/dL (1.3-4.6); Glucose 156 mg/dL (65-115); Lipase 36 U/L (13-60); Osmolality Calculated 255 mOsm/kg (285-295); Potassium 3.1 mmol/L (3.5-5.1); Sodium 123 mmol/L (136-145); Total Bilirubin 0.4 mg/dL (0.15-1.2); Total Protein 6.6 g/dL (6.6-8.7)
[2019-07-11 11:26] LABS: Troponin(5th) Baseline 47 ng/mL (0-10)
[2019-07-11 11:32] LABS: Influenza A by IFA Negative (Negative); Influenza B by IFA Negative (Negative)
[2019-07-11 11:52] LABS: Add Urine Microscopic? NO
[2019-07-11 11:55] LABS: Bilirubin Urine Neg (NEGATIVE); Blood Urine Neg (Negative); Glucose Urine UA Norm (Normal); Ketones Urine Negative (Negative); Leukocyte Esterase Urine Negative (Negative); Nitrate Urine Negative (Negative); Protein Urine Neg (Negative); Specific Gravity, Urine 1.005 (1.005-1.030); Urine Appearance Clear (CLEAR); Urine Color Straw (Yellow); Urobilinogen Urine Norm (Negative); pH Urine 6 (5-7)
--- NOTE | 2019-07-11 12:43 | ECG_ITS ---
Measurements Intervals [place] Rate: 87 P: 87 [place]: 158 QRS: 10 QRSD: 96 T: 51 QT: 374 QTc: 451 SINUS RHYTHM WITH OCCASIONAL SUPRAVENTRICULAR PREMATURE COMPLEXES Compared to ECG 07/11/2019 13:30:30 No significant changes Electronically Signed On 07-12-2019 10:59:11 CDT by Shawna Turner M.D. [email or web address]
[2019-07-11] MEDS: nitroglycerin 1 gm/inch oint Pkt 0.5 INCH TOPICAL (14:18)
--- NOTE | 2019-07-11 15:07 | CT_ITS ---
WS: [id number] CT CHEST WITHOUT INTRAVENOUS CONTRAST HISTORY: Lingular pneumonia. TECHNIQUE: Contiguous 5 mm axial imaging performed on the thorax. Coronal and sagittal reformats are submitted. All CT scans at [facility] use at least one of these dose optimization techniq ues: automated exposure control; mA and/or kV adjustment per patient size (includes targeted exams wh ere dose is matched to clinical indication); or iterative reconstruction. CONTRAST: None DLP: 724.81 mGy.cm COMPARISON: 05/08/2019, 10/05/2018 Lungs and central airway: Pulmonary hyperinflation. Groundglass attenuation centrally in the LEFT upp er lobe. Increased density seen in the lingula on the prior radiograph corresponds to an area of atel ectasis. The area of atelectasis has been present over multiple prior studies but appears slightly mo re prominent in size. Pleura: Normal. No pleural effusion. Heart and pericardium: Moderately enlarged cardiac silhouette. Increased pericardial fat. Mediastinum and carleen: No mediastinum or hilar adenopathy. Vessels: Mild atherosclerosis aorta. Pulmonary artery size is equal to the aorta. Chest wall and lower neck: No soft tissue masses. Upper abdomen: Negative. Osseous structures: Moderate increase in thoracic kyphosis. No osteoblastic or osteolytic bone diseas e. CT/CT chest wo con [id number] IMPRESSION: 1. Increased consolidation at the lingula corresponds to chronic atelectasis w hich has been previous the described. Appeared more prominent on the chest radi ograph as compared to prior studies. May be slight progression of atelectasis. 2. Groundglass attenuation LEFT upper lobe. Consider viral pneumonitis.
[2019-07-11 16:00] LABS: NT Pro B Type Natriuretic Pept 570 pg/mL (0-450); Procalcitonin 0.16 ng/mL (0-0.5); Thyroid Stimulating Hormone 0.74 uIU/mL (0.27-4.20)
--- NOTE | 2019-07-11 16:43 | ECG_ITS ---
Measurements Intervals [place] Rate: 89 P: 92 [place]: 149 QRS: 22 QRSD: 88 T: 68 QT: 363 QTc: 444 SINUS RHYTHM WITH OCCASIONAL SUPRAVENTRICULAR PREMATURE COMPLEXES Compared to ECG 06/19/2019 08:47:48 No significant changes Electronically Signed On 07-11-2019 15:36:19 CDT by Adeel Barrios M.D. [email or web address]
[2019-07-11 17:21] LABS: Troponin 5 6HR 47.13 ng/mL (0-10); Troponin 5 6HR Delta 0.13 ng/L (0-12)
[2019-07-11] MEDS: FUROsemide 40 mg Tablet 60 MG PO (17:47)
[2019-07-11] MEDS: metoprolol tartrate 25 mg Tablet PO (17:47)
[2019-07-11] MEDS: apixaban 5 mg Tablet PO (17:47)
--- NOTE | 2019-07-11 18:43 | P.HP_ITS ---
Providers/Chief Complaint Admitting Physician: Kishan Riddle MD Primary Care Provider: Viktor Baker MD Chief Complaint: CHEST PAIN, DYSPNEA History of Present Illness Michelle Becerra is a 74 year old female with PMH of thyroid cancer status post thyroidectomy, hypothyroidism, type 2 diabetes mellitus, hypertension, obstructive sleep apnea not on any medications, GERD, left upper limb DVT due to PICC line, on chronic eliquis, NSTEMI, A nuclear stress test was performed on M arch 23, that demonstrated a normal ejection fraction, myocardial scarring in the region of the inferior, inferolateral and apical regions, and a small area of vi-infarct ischemia on medical management f/u with Dr. Turner thrjulia tele consult on 06/30/2019, most recent ECHO showing an EF of 64% and grade 1 DD in 05/08/2019 presents to ER today complaining of difficulty in breathing that started today morning when she woke up along with sharp left-sided chest discomfort. She stated chest discomfort was more in the left side radiating to the arm. Patient states usually she is out of breath only on walking small distances but today morning she got out of breath at rest. This is what prompted her to come to the ER. Symptoms are also associated with mild nausea but no vomiting. She denies of having any dizziness, headache, palpitations, cough, flulike symptoms, fever. She thinks she was exposed to 1 of her friends who was having runny nose but is not really sure of the patient was exposed to anybody having flulike symptoms. Review of Systems Const: Denies: fever, chills, body aches, change in appetite, malaise, night sweats, diaphoresis, change in sleep pattern, daytime sleepiness or snoring Eyes: Denies: change in vision, blurry vision, photophobia, eye discomfort or eye discharge ENMT: Denies: throat pain, enlarged tonsils, hoarseness, mouth pain, oral sores/lesions, dry mouth, tinnitus, nasal congestion or post nasal drip Card: Denies: chest pain, palpitations, irregular heart rhythm, edema, swelling of feet/ankles, lightheadedness, syncope, pre-syncope, shortness of breath on exertion, shortness of breath when lying down, leg pain with exertion or bluish discoloration of hands/feet Resp: Denies: shortness of breath, productive cough, non-productive cough, wheezing, stridor, pain on inspiration, change in phlegm color, coughing up blood or chest congestion GI: Denies: abdominal pain, nausea, vomiting, vomiting blood, coffee grounds in vomit, difficulty swallowing, heartburn/indigestion, diarrhea, constipation, bloating, cramping, change in bowel habits, painful bowel movements, blood in stool or black tarry stool : Denies: flank pain, painful urination, urinary frequency, urinary urgency, urinary hesitancy, nighttime urination or blood in urine Musc: Denies: neck pain, back pain, extremity pain, joint pain, joint swelling, redness, joint stiffness or limited range of motion Neuro: Denies: headache, numbness in extremities, weakness in extremities, changes in sensation, lack of coordination, difficulty walking, frequent falls, dizziness, vertigo, confusion, slurred speech, difficulty communicating thoughts or seizure-like activity Psych: Denies: anxiety, depression, mood swings, panic attacks, hopelessness or irritability Endo: Denies: excessive urination, excessive thirst, tired all the time, cold intolerance, excessive sweating, flushing or heat intolerance Wai/Lymph: Denies: easy bruising or easy bleeding All/Imm: Denies: tongue swelling, facial swelling or acute wheezing Medications/Allergies Home Medications Medication Instructions Recorded Confirmed Last Taken Type apixaban [Eliquis] 5 mg PO BID 07/11/19 07/11/19 Unknown History mirabegron [Myrbetriq] 25 mg PO DAILY 07/11/19 07/11/19 Unknown History polyethylene glycol 3350 [Miralax] 17 g PO DAILY PRN 07/11/19 07/11/19 Unknown History simvastatin 40 mg PO DAILY 07/11/19 07/11/19 Unknown History Allergies Allergy/AdvReac Type Severity Reaction Status Date / Time methylprednisolone Allergy ALGY-Rash Verified 07/11/19 10:43 [From Solu-Medrol] piperacillin [From Zosyn] Allergy ALGY-Rash Verified 07/11/19 10:43 tazobactam [From Zosyn] Allergy ALGY-Rash Verified 07/11/19 10:43 PFSH Acute PFSH: Medical History Acute respiratory failure with hypoxia -Required intubation following CODE BLUE, extubated on 05/14 -on diuresis due to anasarca; switch to oral diuretics -Has Mann catheter in place, continue to monitor urine output; removal today -off antibiotic treatment; had been on vancomycin and Levaquin; has noted allergy to Zosyn -CXR (05/18) shows resolution of pneumonia -Echo: EF=64%, no RWMA, G1DD, mild MR, trace AR -afebrile x >24 hrs, vital signs otherwise stable; continue to monitor -continue to monitor renal function, lytes with diuresis -continue to monitor Is & Os, daily weights -telemetry monitoring -sputum cx: mixed nicho; gram stain negative, noted WBCs -blood cx: prelim negative -continue to monitor respiratory status closely -supplemental oxygen as needed -Neb treatments as needed -noted D-dimer elevation, negative PE, negative DVT -very low suspicion for possible aspiration but if continued fever and/or hemodynamic instability may need to include anaerobic coverage; not needed CAD (coronary artery disease) Hypertension Hypothyroidism Well-controlled Lymphedema Macrocytic anemia -has chronic macrocytic anemia; has evidence of vitamin B12 and folate deficiency -replacing vitamin B12, folate -also noted evidence of low iron though ferritin is normal -had reported black stools -baseline Hg is around 11; continue to monitor H/H closely; has been gradually trending down -on PPI Non-insulin dependent type 2 diabetes mellitus NSTEMI (non-ST elevated myocardial infarction) -Noted to have significantly elevated troponins with a delta over 90 which may have precipitated code -Given current need for continued ventilator support, will continue medical management, was already started on a heparin drip, statin, full dose aspirin and Plavix; d/c heparin drip -No acute ischemic changes noted on EKG -Echo done previously as noted below with no noted regional wall motion abnormalities -Continue telemetry monitoring -Cardiology consult by Dr. Turner appreciated; will need outpatient stress testing Surgical History H/O thyroidectomy History of ankle surgery Family History Other Breast cancer CAD (coronary artery disease) Diabetes Hypertension Social History Smoking and tobacco status: never smoked Alcohol intake: never Lives independently: Yes Household members: none Housing: Apartment Current occupational status: disabled History of recent travel: No Current gender identity: Female Vitals/I&O/Wt Last Vital Signs Temp 97.8 F 07/11/19 16:02 Pulse 99 07/11/19 16:02 Resp 18 07/11/19 16:02 BP 134/77 07/11/19 16:02 Pulse Ox 96 07/11/19 16:07 07/11/19 07/11/19 07/11/19 06:59 14:59 22:59 Intake Total 240 / 240 Balance 240 / 240 Weight last 48 hrs Weight 81.193 kg Physical Exam Narrative: EXAM NARRATIVE: General: No acute distress, AO x3 HEENT: PERRLA, pupils bilaterally equal and reactive Chest: Normal vesicular breath sounds, no added sounds, equal good air entry bilaterally CVS: S1-S2 regular, no murmurs, no tachycardia, no gallops, no rubs Abdomen: Soft, nontender, no organomegaly, bowel sounds present Neuro: No focal deficits, no facial deformity, AO x3, power 5/5 in all limbs Data : 07/12/19 03:35 07/12/19 03:35 A&P Assessment and plan (1) SOB (shortness of breath): Status: Acute (2) Congestive heart failure: Status: Acute Qualifiers: Heart failure chronicity: acute on chronic Heart failure type: unspecified Qualified Code(s): I50.9 - Heart failure, unspecified (3) CAD (coronary artery disease): Status: Acute Qualifiers: Associated angina: without angina Coronary Disease-Associated Artery/Lesion type: [place] artery [place] vs. transplanted heart: [place] heart Qualified Code(s): I25.10 - Atherosclerotic heart disease of [place] coronary artery without angina pectoris (4) Hyponatremia: Status: Acute (5) Hypertension: Status: Acute Qualifiers: Hypertension type: essential hypertension Qualified Code(s): I10 - Essential (primary) hypertension (6) Hypothyroidism: Status: Acute Qualifiers: Hypothyroidism type: postoperative Qualified Code(s): E89.0 - Postprocedural hypothyroidism (7) Non-insulin dependent type 2 diabetes mellitus: Status: Acute (8) DVT (deep venous thrombosis): Status: Acute (9) Acute kidney injury: Status: Acute (10) Lymphedema: Status: Acute Additional A&P Information Shortness of breath: Most likely because of congestive heart failure. Most recent echo done in April showed grade 1 diastolic dysfunction. Patient symptomatically on clinical examination looks a little fluid overloaded. We will change her home dose of Lasix from 60 mg twice daily to IV Lasix 40 twice daily. Strict input output charting. Daily weights. Head and elevation. Fluid restriction up to 1.5 L. We will check CT chest to rule out any infiltrate. Chest x-ray confirmed concerning for possible infiltrate in the left lingula. We will hold off on antibiotics for now as patient is not febrile. Check procalcitonin. For now we will hold off on COVID testing and will reassess after CT chest results. For now there are no concern of viral pneumonitis. Oxygen supplementation keeping saturation over 92%. ABG noted for mild alkalosis and mild hypoxia with PO2 of 78 while saturation is 95% on room air. CAD: With recent history of NSTEMI and most recent myocardial perfusion test as below. MPI (06/20/19) IMPRESSIONS #1. Myocardial perfusion imaging revealing a moderate area of moderately decreased tracer uptake in the inferior, inferolateral and apical regions with some reversibility in the inferior wall region, suggestive of myocardial scarring in the distribution of the right coronary artery and circumflex artery with a small area of possible vi-infarction ischemia. #2. Normal LV ejection fraction of 80%. #3. LV wall motion analysis revealing no gross wall motion abnormalities. #4. Normal LV volume. Troponins 47 at baseline. Seems to be trending down from her troponins in the past going up to thousand with 66 on her last admission in May. We will continue to monitor troponins at 2 hours and 6 hours. It is likely patient is having symptoms because of small area of vi-infarct ischemia. We will consult cardiology for further assistance. Continue with aspirin, statins, fenofibrate at current dose. Continue with home dose of Lopressor. Telemetry. Lipid panel recently checked in April so will not repeat. Nitrates as needed. Left upper arm DVT: Continue with Eliquis. Patient does not give any concerns for bleeding. Hemoglobin at baseline. CKD: Creatinine is better than baseline. 1.3 today. It seems her baseline creatinine seems to be running around 1.5. Medical reconciliation done for nephrotoxic drugs. Continue to monitor BMP daily. Hyponatremia: Most likely dilutional given mild CHF. Check urine lites, urine osmolarity. Calculated osmolality 255. Check BMP daily. Fluid restriction. Patient does not seem to be having any symptoms because of acute hyponatremia at present. Check TSH. Type 2 diabetes mellitus: A1c recently checked. Insulin sliding scale at moderate dose. Check a blood sugars before meals and at bedtime. Full code. Heparin for DVT prophylaxis. Cardiac diet. Attestations Medical Necessity Statement*: 2 midnights for CAD under evaluation and diastolic heart failure Time Spent in Patient Care: Greater than 35 minutes Coding Level of Care Code Acute Compensation And Benefits Analyst for [facility] Fwd Diagnoses SOB (shortness of breath) R06.02 Congestive heart failure I50.9 Heart failure chronicity: acute on chronic Heart failure type: unspecified CAD (coronary artery disease) I25.10 Associated angina: without angina Coronary Disease-Associated Artery/Lesion type: [place] artery [place] vs. transplanted heart: [place] heart Hyponatremia E87.1 Hypertension I10 Hypertension type: essential hypertension Hypothyroidism E89.0 Hypothyroidism type: postoperative Non-insulin dependent type 2 diabetes mellitus E11.9 DVT (deep venous thrombosis) I82.409 Acute kidney injury N17.9 Lymphedema I89.0
--- NOTE | 2019-07-11 19:36 | PC.NURSE ---
handoff report given to Davy BARROW to room 105.
[2019-07-11] MEDS: FUROsemide 10 mg/mL SDV 4mL 40 MG IVP (20:48)
[2019-07-12] VITALS (8 sets, daily range): BP systolic 102–128; BP diastolic 41–82; PULSE 65–82; RESP 18–24; TEMP 36.4–36.9; O2SAT 96–100
[2019-07-12 02:08] LABS: Potassium, Radom Urine 13 mmol/L; Urine Random Chloride 46 mmol/L; Urine Random Sodium 45 mmol/L
[2019-07-12 04:09] LABS: Basophils % 0.2 %; Eosinophils # 0.1 10^3/uL (0.0-0.8); Eosinophils % 1.4 %; Hematocrit 32.8 % (37.0-47.0); Hemoglobin 10.6 g/dL (11.5-15.3); Lymphocytes # 0.4 10^3/uL (0.8-4.8); Lymphocytes % 8.2 %; Mean Corpuscular HGB Conc 32.3 g/dL (30.0-36.0); Mean Corpuscular Hemoglobin 28.9 pg (28.0-34.0); Mean Corpuscular Volume 89.4 fL (81-99); Mean Platelet Volume 9.4 fL (7.4-10.4); Monocytes # 0.3 10^3/uL (0.2-0.9); Monocytes % 6.8 %; Neutrophils # 4.1 10^3/uL (1.8-7.7); Nucleated Red Blood Cells % 0 %; Platelet Count 333 10^3/cmm (130-400); Red Blood Count 3.67 10^6/uL (4.1-5.3); Red Cell Distribution Width 15.6 % (12.1-15.1)
[2019-07-12 04:31] LABS: Blood Urea Nitrogen 6 mg/dL (8-23); Calcium 7.7 mg/dL (8.5-10.5); Carbon Dioxide 30 mmol/L (22-29); Chloride 89 mmol/L (98-107); Glucose 142 mg/dL (65-115); Osmolality Calculated 274 mOsm/kg (285-295); Sodium 133 mmol/L (136-145)
[2019-07-12] MEDS: FUROsemide 10 mg/mL SDV 4mL 40 MG IVP ×2 (06:26→18:04)
[2019-07-12] MEDS: potassium chloride premix 40 MEQ/100 ML PREMIX 25 MEQ IV ×2 (06:26→10:46)
[2019-07-12] MEDS: atorvastatin 40 mg Tablet 20 MG PO (08:40)
[2019-07-12] MEDS: aspirin 81 mg EC Tablet PO (08:40)
[2019-07-12] MEDS: levothyroxine 125 mcg Tablet PO (08:40)
[2019-07-12] MEDS: fenofibrate 48 mg Tablet PO (08:40)
[2019-07-12] MEDS: apixaban 5 mg Tablet PO ×2 (08:40→18:04)
[2019-07-12] MEDS: metoprolol tartrate 25 mg Tablet PO ×2 (08:40→18:04)
--- NOTE | 2019-07-12 13:37 | PM.PN ---
Subjective Subjective: Interval history: No acute events overnight. Patient was tested for COVID [address] chest was concerning for possible viral pneumonitis. Today morning COVID-19 came back negative. Patient has not had any further chest pain since admission. States she is feeling better from her breathlessness point of view. Denies of having any cough, palpitations. Telemetry, labs noted. Vitals/I&O/Wt Last Vital Signs Temp 97.6 F 07/12/19 12:00 Pulse 71 07/12/19 12:00 Resp 21 H 07/12/19 12:00 BP 128/68 07/12/19 12:00 Pulse Ox 96 07/12/19 12:00 07/11/19 07/12/19 07/12/19 22:59 06:59 14:59 Intake Total 240 / 240 240 / 480 812 / 812 Output Total 950 / 950 550 / 1500 700 / 700 Balance -710 / -710 -310 / -1020 112 / 112 Weight last 48 hrs Weight 81.193 kg Physical Exam Narrative: EXAM NARRATIVE: General: No acute distress, AO x3 HEENT: PERRLA, pupils bilaterally equal and reactive Chest: Normal vesicular breath sounds, bilateral occasional fine crackles , equal good air entry bilaterally CVS: S1-S2 regular, no murmurs, no tachycardia, no gallops, no rubs Abdomen: Soft, nontender, no organomegaly, bowel sounds present Neuro: No focal deficits, no facial deformity, AO x3, power 5/5 in all limbs Extremities: Lymphedema present. Bilaterally equal. Data : 07/12/19 03:35 07/12/19 03:35 A&P Assessment and plan (1) SOB (shortness of breath): Status: Acute (2) Congestive heart failure: Status: Acute (3) CAD (coronary artery disease): Status: Acute (4) Hyponatremia: Status: Acute (5) Hypertension: Status: Acute Qualifiers: Hypertension type: essential hypertension Qualified Code(s): I10 - Essential (primary) hypertension (6) Hypothyroidism: Status: Acute Qualifiers: Hypothyroidism type: postoperative Qualified Code(s): E89.0 - Postprocedural hypothyroidism (7) Non-insulin dependent type 2 diabetes mellitus: Status: Acute (8) DVT (deep venous thrombosis): Status: Acute (9) Acute kidney injury: Status: Acute (10) Lymphedema: Status: Acute Additional A&P Information Shortness of breath: Most likely because of congestive heart failure. Most recent echo done in April showed grade 1 diastolic dysfunction. Patient symptomatically on clinical examination looks a little fluid overloaded. We will change her home dose of Lasix from 60 mg twice daily to IV Lasix 40 twice daily. Strict input output charting. Daily weights. Head and elevation. Fluid restriction up to 1.5 L. Oxygen supplementation keeping saturation over 92%. COVID-19 negative Continue with home dose of Advair twice daily, Spiriva daily along with albuterol as needed every 4 hourly. CAD/unstable angina: With recent history of NSTEMI and most recent myocardial perfusion test as below. MPI (06/20/19) IMPRESSIONS #1. Myocardial perfusion imaging revealing a moderate area of moderately decreased tracer uptake in the inferior, inferolateral and apical regions with some reversibility in the inferior wall region, suggestive of myocardial scarring in the distribution of the right coronary artery and circumflex artery with a small area of possible vi-infarction ischemia. #2. Normal LV ejection fraction of 80%. #3. LV wall motion analysis revealing no gross wall motion abnormalities. #4. Normal LV volume. Troponin trend have been stable. It is likely patient is having symptoms because of small area of vi-infarct ischemia. We will consult cardiology for further assistance because this is patient's third admission for similar symptoms.. Continue with aspirin, statins, fenofibrate at current dose. Continue with home dose of Lopressor. Telemetry. Lipid panel recently checked in April so will not repeat. Nitrates as needed. Left upper arm DVT: Continue with Eliquis. Patient does not give any concerns for bleeding. Hemoglobin at baseline. CKD: Creatinine is better than baseline. Went to today. It seems her baseline creatinine seems to be running around 1.5. Medical reconciliation done for nephrotoxic drugs. Continue to monitor BMP daily. Hyponatremia: Resolved. Most likely dilutional given mild CHF. Check BMP daily. Fluid restriction. Patient does not seem to be having any symptoms because of acute hyponatremia at present. TSH noted Type 2 diabetes mellitus: A1c recently checked. Insulin sliding scale at moderate dose. Check a blood sugars before meals and at bedtime. Full code. Heparin for DVT prophylaxis. Cardiac diet. Potassium repleted Attestations Medical Necessity Statement*: Diastolic heart failure, unstable angina Time Spent in Patient Care: 16 - 35 minutes Coding Level of Care Code Acute Senior Supplier Quality Engineer for [employer] Fwd Diagnoses SOB (shortness of breath) R06.02 Congestive heart failure I50.9 CAD (coronary artery disease) I25.10 Hyponatremia E87.1 Hypertension I10 Hypertension type: essential hypertension Hypothyroidism E89.0 Hypothyroidism type: postoperative Non-insulin dependent type 2 diabetes mellitus E11.9 DVT (deep venous thrombosis) I82.409 Acute kidney injury N17.9 Lymphedema I89.0
[2019-07-12 15:27] LABS: Coronavirus Lab Test PTC Negative
[2019-07-13] VITALS (9 sets, daily range): BP systolic 101–125; BP diastolic 51–69; PULSE 62–79; RESP 16–22; TEMP 36.4–36.6; O2SAT 96–100
[2019-07-13 04:29] LABS: Basophils % 0.2 %; Eosinophils # 0.1 10^3/uL (0.0-0.8); Eosinophils % 2.3 %; Hematocrit 29.1 % (37.0-47.0); Hemoglobin 9.3 g/dL (11.5-15.3); Lymphocytes # 0.4 10^3/uL (0.8-4.8); Lymphocytes % 9.5 %; Mean Corpuscular Hemoglobin 28.3 pg (28.0-34.0); Mean Corpuscular Volume 88.4 fL (81-99); Mean Platelet Volume 9.3 fL (7.4-10.4); Monocytes # 0.4 10^3/uL (0.2-0.9); Monocytes % 8.4 %; Neutrophils # 3.4 10^3/uL (1.8-7.7); Neutrophils % 79.1 %; Nucleated Red Blood Cells % 0 %; Platelet Count 289 10^3/cmm (130-400); Red Blood Count 3.29 10^6/uL (4.1-5.3); Red Cell Distribution Width 15.4 % (12.1-15.1); White Blood Count 4.3 10^3/uL (4.0-10.0)
[2019-07-13 04:49] LABS: Alanine Aminotransferase < 5 U/L (0-33); Alkaline Phosphatase 61 IU/L (35-105); Anion Gap 15.6 (5-19); Aspartate Amino Transferase 12 U/L (0-32); Blood Urea Nitrogen 8 mg/dL (8-23); Calcium 7.1 mg/dL (8.5-10.5); Carbon Dioxide 29 mmol/L (22-29); Chloride 89 mmol/L (98-107); Globulin 2.8 g/dL (1.3-4.6); Glucose 108 mg/dL (65-115); Osmolality Calculated 266 mOsm/kg (285-295); Potassium 3.6 mmol/L (3.5-5.1); Sodium 130 mmol/L (136-145); Total Bilirubin 0.5 mg/dL (0.15-1.2); Total Protein 5.8 g/dL (6.6-8.7)
[2019-07-13] MEDS: FUROsemide 10 mg/mL SDV 4mL 40 MG IVP ×2 (06:50→14:50)
--- NOTE | 2019-07-13 08:58 | P.PN_ITS ---
Subjective Subjective: Interval history: Michelle reports she is doing okay. Her shortness of breath is improved. She wonders when she will be able to go home. She does report she had significant chest discomfort at home associated with shortness of breath. She denies any discomfort now. Records reviewed. Medications: Reviewed: Yes Vitals/I&O/Wt Last Vital Signs Temp 97.5 F L 07/13/19 07:25 Pulse 79 07/13/19 08:15 Resp 16 07/13/19 08:13 BP 108/51 07/13/19 07:25 Pulse Ox 99 07/13/19 08:13 07/12/19 07/13/19 07/13/19 22:59 06:59 14:59 Intake Total 360 / 1272 240 / 1512 120 / 120 Output Total 50 / 750 Balance 310 / 522 240 / 762 120 / 120 Weight last 48 hrs Weight 81.465 kg Weight 81.193 kg Physical Exam Narrative: EXAM NARRATIVE: General exam is no apparent distress Cardiovascular regular rate and rhythm without murmur Lungs clear Abdomen is soft, positive bowel sounds Extremities no cyanosis clubbing. 1+ to 2+ lymphedema noted lower extremities Data : 07/13/19 03:55 07/13/19 03:55 A&P Assessment and plan (1) SOB (shortness of breath): Secondary to congestive heart failure, improved. Had concomitant chest discomfort. Cardiology consultation ordered. Status: Acute (2) Congestive heart failure: Status: Acute (3) CAD (coronary artery disease): Cardiology consultation. Continue aspirin, beta-masha, statin. Blood pressure under control. Previous nuclear stress testing May 2019 demonstrated normal EF, some reversibility inferior wall region with scar in this region as well. Troponin with no significant delta. Status: Acute (4) Hyponatremia: Still present. Secondary to CHF. Continue diuresis. Fluid restriction to 1200 cc Status: Acute (5) Hypertension: Status: Acute Qualifiers: Hypertension type: essential hypertension Qualified Code(s): I10 - Essential (primary) hypertension (6) Hypothyroidism: Status: Acute Qualifiers: Hypothyroidism type: postoperative Qualified Code(s): E89.0 - Postprocedural hypothyroidism (7) Non-insulin dependent type 2 diabetes mellitus: Status: Acute (8) DVT (deep venous thrombosis): On Eliquis for left upper extremity DVT. Will discontinue, in case cardiac procedure may be done tomorrow. Status: Acute (9) Acute kidney injury: Status: Acute (10) Lymphedema: Unchanged Status: Acute Additional A&P Information Hypocalcemia, to get outpatient endocrine follow-up Concern of Covid 19. Testing is negative. Chronic kidney disease, creatinine stable. Anemia, stable Type 2 diabetes. Sliding scale insulin. Full code Eliquis for DVT prophylaxis, but holding for potential procedure tomorrow Attestations Medical Necessity Statement*: Needs continued hospitalization for definitive evaluation of chest discomfort, and cardiology consultation regarding CHF. Coding Level of Care Code Acute Processing Analyst for [employer] Fwd Diagnoses SOB (shortness of breath) R06.02 Congestive heart failure I50.9 CAD (coronary artery disease) I25.10 Hyponatremia E87.1 Hypertension I10 Hypertension type: essential hypertension Hypothyroidism E89.0 Hypothyroidism type: postoperative Non-insulin dependent type 2 diabetes mellitus E11.9 DVT (deep venous thrombosis) I82.409 Acute kidney injury N17.9 Lymphedema I89.0
[2019-07-13] MEDS: atorvastatin 40 mg Tablet 20 MG PO (09:12)
[2019-07-13] MEDS: levothyroxine 125 mcg Tablet PO (09:12)
[2019-07-13] MEDS: aspirin 81 mg EC Tablet PO (09:12)
[2019-07-13] MEDS: fenofibrate 48 mg Tablet PO (09:13)
[2019-07-13] MEDS: metoprolol tartrate 25 mg Tablet PO ×2 (09:13→21:09)
[2019-07-13] MEDS: pantoprazole DR 40 mg Tablet PO ×2 (09:13→21:11)
[2019-07-13 09:35] LABS: Magnesium 1.6 mg/dL (1.7-2.3)
[2019-07-13 11:25] LABS: Glucose Point of Care 111 mg/dL (70-110)
[2019-07-13] MEDS: heparin 5,000 unit/mL INJ 1 mL 5000 UNIT SUBCUT ×2 (13:26→21:09)
--- NOTE | 2019-07-13 13:36 | P.CONIM_ITS ---
Providers/Reason For Consult Consulting Physican/Specialty*: Dr. Turner, cardiology Reason for Consult*: Chest pain elevated troponin and decompensated congestive heart failure Attending Physician: Claude Parra MD Primary Care Provider: Viktor Baker MD History of Present Illness History of Present Illness Michelle Becerra is a 74 year old female with past medical history of thyroid cancer status post thyroidectomy, post surgical hypothyroidism, type 2 diabetes mellitus, hypertension, obstructive sleep apnea, GERD. She was in the hospital with complaints of shortness of breath, cough, orthopnea, paroxysmal nocturnal dyspnea and recent right UE DVT. She was admitted for CHF exacerbation and pneumonia on 05/10/19 and went into respiratory distress and had to be intubated. She was emperically started on ACS protocol for elevated troponin. She was hospitalized again with decompensated CHF and diuresed. A nuclear stress test was performed on June 19, that demonstrated a normal ejection fraction, myocardial scarring in the region of the inferior, inferolateral and apical regions, and a small area of vi-infarct ischemia. She was hospitalized again for worsening chest discomfort and exertional shortness of breath and last to 3 days. On the day of presentation she woke up with sharp left-sided chest discomfort with radiation to her arm. She has diuresed well with IV Lasix. There was concern for viral pneumonitis on CT scan of her chest and she was tested and found to be COVID-19 negative. Influenza testing was negative as well. At the time of evaluation she is chest pain free and her breathing has improved. She does complain of some abdominal cramping and loose stool. No active bleeding. Review of Systems Const: Denies: fever, chills, body aches or malaise Eyes: Denies: change in vision ENMT: Denies: throat pain or hoarseness Card: Denies: palpitations, irregular heart rhythm, lightheadedness, syncope, shortness of breath on exertion or leg pain with exertion Resp: Denies: shortness of breath, productive cough, non-productive cough or pain on inspiration GI: Denies: abdominal pain, nausea, vomiting, heartburn/indigestion, diarrhea, constipation or blood in stool : Denies: flank pain, painful urination, urinary frequency, urinary urgency, urinary hesitancy or blood in urine Musc: Denies: joint pain or joint swelling Neuro: Denies: headache, numbness in extremities, weakness in extremities, changes in sensation, frequent falls, dizziness, vertigo, confusion or slurred speech Psych: Denies: anxiety, depression or panic attacks Endo: Denies: excessive thirst Wai/Lymph: Denies: easy bruising All/Imm: Denies: facial swelling or acute wheezing Meds/Allergies Home Medications and Allergies Home Medications Medication Instructions Recorded Confirmed Type Januvia 100 mg PO DAILY 30 Days #30 tab 05/20/19 07/11/19 Rx acetaminophen 650 mg PO Q6H PRN #30 tab 05/20/19 07/11/19 Rx fenofibrate 48 mg PO DAILY 30 Days #30 tab 05/20/19 07/11/19 Rx levothyroxine 175 mcg PO DAILY 30 Days #30 tab 05/20/19 07/11/19 Rx omeprazole 40 mg PO DAILY 30 Days #30 tab 05/20/19 07/11/19 Rx calcium carbonate 390 mg PO TID #90 tab 06/20/19 07/11/19 Rx furosemide [Lasix] 60 mg PO BID #90 tab 06/20/19 07/11/19 Rx magnesium oxide 400 mg PO BID #60 cap 06/20/19 07/11/19 Rx albuterol sulfate 2.5 mg/0.5 mL 2.5 mg INHALATION Q6H PRN each 06/30/19 07/11/19 History solution for nebulization aspirin 81 mg tablet,delayed 81 mg PO DAILY 06/30/19 07/11/19 History release cyanocobalamin (vitamin B-12) 500 1,000 mcg PO DAILY 06/30/19 07/11/19 History mcg tablet folic acid 1 mg tablet 1 mg PO DAILY 06/30/19 07/11/19 History metoprolol tartrate 25 mg tablet 25 mg PO BID 06/30/19 07/11/19 History potassium chloride 20 mEq 10 meq PO BID 06/30/19 07/11/19 History tablet,extended release albuterol sulfate 90 mcg/actuation 2 puff INHALATION Q6H PRN 07/06/19 07/11/19 History aerosol inhaler umeclidinium 62.5 mcg-vilanterol 1 inh INHALATION DAILY 07/06/19 07/11/19 History 25 mcg/actuation powdr for inhalation apixaban [Eliquis] 5 mg PO BID 07/11/19 07/11/19 History mirabegron [Myrbetriq] 25 mg PO DAILY 07/11/19 07/11/19 History polyethylene glycol 3350 [Miralax] 17 g PO DAILY PRN 07/11/19 07/11/19 History simvastatin 40 mg PO DAILY 07/11/19 07/11/19 History Allergies Allergy/AdvReac Type Severity Reaction Status Date / Time methylprednisolone Allergy ALGY-Rash Verified 07/11/19 10:43 [From Solu-Medrol] piperacillin [From Zosyn] Allergy ALGY-Rash Verified 07/11/19 10:43 tazobactam [From Zosyn] Allergy ALGY-Rash Verified 07/11/19 10:43 Current Medications Current Medications Generic Name Dose Route Start Last Admin Trade Name Freq PRN Reason Stop Dose Admin Aspirin 81 mg 07/12/19 09:00 07/13/19 09:12 Aspirin Ec PO 81 mg DAILY KELLY Administration Atorvastatin Calcium 20 mg 07/12/19 09:00 07/13/19 09:12 Lipitor PO 20 mg DAILY KELLY Administration Fenofibrate 48 mg 07/12/19 09:00 07/13/19 09:13 Tricor PO 48 mg DAILY KELLY Administration Furosemide 40 mg 07/11/19 19:00 07/13/19 06:50 Lasix IVP 40 mg Q12H KELLY Administration Heparin Sodium (Beef Lung) 5,000 unit 07/13/19 13:00 07/13/19 13:26 Heparin SUBCUT 5,000 unit Q8H KELLY Administration Insulin Aspart 0 unit 07/13/19 12:00 07/13/19 11:33 Novolog SUBCUT Not Given TIDWM [facility] Protocol Levothyroxine Sodium 125 mcg 07/12/19 09:00 07/13/19 09:12 Synthroid PO 125 mcg DAILY KELLY Administration Metoprolol Tartrate 25 mg 07/11/19 18:00 07/13/19 09:13 Lopressor PO 25 mg BID KELLY Administration Non-Formulary Medication 390 mg 07/11/19 21:00 07/13/19 09:18 Calcium Carbonate PO Not Given TID KELLY Pantoprazole Sodium 40 mg 07/13/19 09:00 07/13/19 09:13 Protonix PO 40 mg DAILY KELLY Administration Fluticasone/Salmeterol 1 puff 07/11/19 20:00 07/13/19 08:09 Advair Diskus 500-50 INHALATION 1 puff BID.RESPIRATORY KELLY Administration Tiotropium [place] 18 mcg 07/12/19 08:00 07/13/19 08:09 Spiriva INHALATION 18 mcg DAILY.RESPIRATORY KELLY Administration PFSH Acute PFSH: Medical History Acute respiratory failure with hypoxia -Required intubation following CODE BLUE, extubated on 05/14 -on diuresis due to anasarca; switch to oral diuretics -Has Mann catheter in place, continue to monitor urine output; removal today -off antibiotic treatment; had been on vancomycin and Levaquin; has noted allergy to Zosyn -CXR (05/18) shows resolution of pneumonia -Echo: EF=64%, no RWMA, G1DD, mild MR, trace AR -afebrile x >24 hrs, vital signs otherwise stable; continue to monitor -continue to monitor renal function, lytes with diuresis -continue to monitor Is & Os, daily weights -telemetry monitoring -sputum cx: mixed nicho; gram stain negative, noted WBCs -blood cx: prelim negative -continue to monitor respiratory status closely -supplemental oxygen as needed -Neb treatments as needed -noted D-dimer elevation, negative PE, negative DVT -very low suspicion for possible aspiration but if continued fever and/or hemodynamic instability may need to include anaerobic coverage; not needed CAD (coronary artery disease) Hypertension Hypothyroidism Well-controlled Lymphedema Macrocytic anemia -has chronic macrocytic anemia; has evidence of vitamin B12 and folate deficiency -replacing vitamin B12, folate -also noted evidence of low iron though ferritin is normal -had reported black stools -baseline Hg is around 11; continue to monitor H/H closely; has been gradually trending down -on PPI Non-insulin dependent type 2 diabetes mellitus NSTEMI (non-ST elevated myocardial infarction) -Noted to have significantly elevated troponins with a delta over 90 which may have precipitated code -Given current need for continued ventilator support, will continue medical management, was already started on a heparin drip, statin, full dose aspirin and Plavix; d/c heparin drip -No acute ischemic changes noted on EKG -Echo done previously as noted below with no noted regional wall motion abnormalities -Continue telemetry monitoring -Cardiology consult by Dr. Turner appreciated; will need outpatient stress testing Surgical History H/O thyroidectomy History of ankle surgery Family History Other Breast cancer CAD (coronary artery disease) Diabetes Hypertension Social History Smoking and tobacco status: never smoked Alcohol intake: never Lives independently: Yes Household members: none Housing: Apartment Current occupational status: disabled History of recent travel: No Current gender identity: Female Vitals/I&O/Wt Last Vital Signs Temp 97.6 F 07/13/19 11:18 Pulse 71 07/13/19 11:18 Resp 20 H 07/13/19 11:18 BP 105/67 07/13/19 11:18 Pulse Ox 100 07/13/19 11:18 07/12/19 07/13/19 07/13/19 22:59 06:59 14:59 Intake Total 360 / 1272 240 / 1512 120 / 120 Output Total 50 / 750 Balance 310 / 522 240 / 762 120 / 120 Weight last 48 hrs Weight 179 lb 9.6 oz Physical Exam Narrative: EXAM NARRATIVE: GENERAL: obese woman in no acute distress HEENT: Extraocular movement intact. Pupils equal round reactive to light. No icterus. NECK: central trachea, no JVD. CARDIOVASCULAR SYSTEM: S1-S2 regular. No murmur rubs or gallops. RESPIRATORY SYSTEM: Chest clear to auscultation. No wheezes rhonchi or rubs heard. ABDOMEN: Soft, nontender and nondistended. Normal bowel sounds present. EXTREMITIES: No cyanosis or clubbing. No pitting edema. No signs of chronic venous insufficiency. WOOD TECHNOLOGIST: Patient is alert oriented ?3. No focal neurological deficits. Cranial nerves intact. SKIN: Normal turgor and temperature. No breakdown, Data Labs: Other Labs: Baseline troponin T of 47, 2-hour troponin T of 49 and 6 are troponin I of 47. Imaging^: Other Imaging: Radiologist's impression: MPI (06/20/19) IMPRESSIONS #1. Myocardial perfusion imaging revealing a moderate area of moderately decreased tracer uptake in the inferior, inferolateral and apical regions with some reversibility in the inferior wall region, suggestive of myocardial scarring in the distribution of the right coronary artery and circumflex artery with a small area of possible vi-infarction ischemia. #2. Normal LV ejection fraction of 80%. #3. LV wall motion analysis revealing no gross wall motion abnormalities. #4. Normal LV volume. No similar previous studies are available for comparison CT chest (07/11/19) IMPRESSION: 1. Increased consolidation at the lingula corresponds to chronic atelectasis which has been previous the described. Appeared more prominent on the chest radiograph as compared to prior studies. May be slight progression of atelectasis. 2. Groundglass attenuation LEFT upper lobe. Consider viral pneumonitis. CXR (07/11/19) IMPRESSION: 1. Increasing opacification at the lingula. Mild progression of pneumonia or atelectasis. 2. Partially calcified aorta. TTE (05/08/19) CONCLUSIONS 1-Normal left ventricular cavity size. Normal left ventricular systolic function. No regional wall motion abnormalities. Left ventricular ejection fraction is estimated at 64 %. Grade I/IV diastolic dysfunction (abnormal relaxation filling pattern), normal to mildly elevated filling pressures. 2-Moderately increased left atrial size. 3-Moderately thickened mitral valve. No mitral valve stenosis. Mild mitral valve regurgitation. 4-Mild aortic valve calcification. No aortic valve stenosis. Trace aortic valve regurgitation. 5-Trace tricuspid valve regurgitation. 6-There is no pericardial effusion. 7-Pulmonary artery systolic pressure is within normal limits. 8-No significant change since the prior echocardiogram study of 06/22/2014. EKG^: EKG 1: I personally reviewed and interpreted this EKG as follows: My Interpretation: EKG showed sinus rhythm with occasional supraventricular complexes. A&P Assessment and plan (1) Chest pain: Patient has had recurrent episodes of chest pains as well as CHF exacerbations requiring hospitalization in spite of compliance with medications. -Stress test with moderate sized area of decreased tracer uptake in inferior inferolateral and apical regions with mild reversibility inferior wall. -Continue aspirin, statin and metoprolol tartrate. -No active bleeding. I will load her with 300 mg p.o. of Plavix and plan for coronary angiogram tomorrow with Dr. Avery. -Risks and benefits were discussed with the patient in detail. She expresses her understanding and would like to proceed with the same. Status: Acute Qualifiers: Ischemic chest pain type: unstable angina pectoris (2) Congestive heart failure: Currently on 40 mg IV every 12 hr. I do not think urine output has been adequately documented. Status: Acute Qualifiers: Heart failure type: diastolic Heart failure chronicity: acute on chronic Qualified Code(s): I50.33 - Acute on chronic diastolic (congestive) heart failure (3) CAD (coronary artery disease): Recent NSTEMI, initially treated medically. However, she continues to have recurrent CHF exacerbation and chest pains. -I will plan for [facility]. continue current medications. Status: Acute Qualifiers: Coronary Disease-Associated Artery/Lesion type: [place] artery [place] vs. transplanted heart: [place] heart Associated angina: with unstable angina Qualified Code(s): I25.110 - Atherosclerotic heart disease of [place] coronary artery with unstable angina pectoris (4) DVT (deep venous thrombosis): Venous duplex (05/19/19): SVT RIGHT basilic vein at PICC insertion site. On Eliquis at home Status: Acute Qualifiers: DVT location: upper extremity Affected thrombotic vein of extremity: other upper extremity vein Chronicity: unspecified Laterality: right Qualified Code(s): I82.621 - Acute embolism and thrombosis of deep veins of right upper extremity (5) Non-insulin dependent type 2 diabetes mellitus: Status: Acute (6) Hypertension: BP running low normal. continue to closely monitor. Status: Acute Qualifiers: Hypertension type: essential hypertension Qualified Code(s): I10 - Essential (primary) hypertension (7) Hypothyroidism: Status: Acute Qualifiers: Hypothyroidism type: postoperative Qualified Code(s): E89.0 - Postprocedural hypothyroidism Additional A&P Information Hyponatremia Anemia: No active bleed hemoglobin dropped from 10.6-9.3 today. However, her Hbhas ranged from 7.4-10.6 in last few weeks. Lymphedema Thank you for allowing me to participate in patient's care. Please feel free to call with questions or concerns. Consult Attestations Medical Necessity Statement: Needs hospital stay for management of CHF and CP. Coding Level of Care Code Acute [place] for Idania Allison Diagnoses Chest pain R07.9 Ischemic chest pain type: unstable angina pectoris Congestive heart failure I50.33 Heart failure type: diastolic Heart failure chronicity: acute on chronic CAD (coronary artery disease) I25.110 Coronary Disease-Associated Artery/Lesion type: [place] artery [place] vs. transplanted heart: [place] heart Associated angina: with unstable angina DVT (deep venous thrombosis) I82.621 DVT location: upper extremity Affected thrombotic vein of extremity: other upper extremity vein Chronicity: unspecified Laterality: right Non-insulin dependent type 2 diabetes mellitus E11.9 Hypertension I10 Hypertension type: essential hypertension Hypothyroidism E89.0 Hypothyroidism type: postoperative
[2019-07-13] MEDS: magnesium sulfate premix 2 GM/50 ML PIGGYBACK IV (14:50)
[2019-07-13] MEDS: clopidogrel 300 mg Tablet PO (14:50)
[2019-07-13] MEDS: potassium chloride oral liq 20 mEq/15 mL UDC PO (14:50)
[2019-07-13 15:35] LABS: Osmolality Urine 138 mOsm/kg (50-1200)
[2019-07-13 16:58] LABS: Glucose Point of Care 127 mg/dL (70-110)
--- NOTE | 2019-07-13 17:46 | PC.NURSE ---
called dr manley patient refusing medications at this time instructions given to change schedule of protonix and metoprolol to 0900,2100 and attempt to given meds later
[2019-07-13 21:26] LABS: Glucose Point of Care 134 mg/dL (70-110)
[2019-07-13] MEDS: acetaminophen 325 mg Tablet 650 MG PO (22:27)
[2019-07-14] VITALS (22 sets, daily range): BP systolic 82–116; BP diastolic 49–74; PULSE 63–89; RESP 16–22; TEMP 36.4–37.1; O2SAT 91–100
[2019-07-14 05:21] LABS: Anion Gap 18.4 (5-19); Blood Urea Nitrogen 8 mg/dL (8-23); Calcium 7.4 mg/dL (8.5-10.5); Carbon Dioxide 27 mmol/L (22-29); Chloride 85 mmol/L (98-107); Glucose 118 mg/dL (65-115); Osmolality Calculated 261 mOsm/kg (285-295); Potassium 3.4 mmol/L (3.5-5.1); Sodium 127 mmol/L (136-145)
[2019-07-14] MEDS: heparin 5,000 unit/mL INJ 1 mL 5000 UNIT SUBCUT ×2 (05:43→20:56)
[2019-07-14 06:54] LABS: Glucose Point of Care 104 mg/dL (70-110)
[2019-07-14 07:10] LABS: PROTEIN, TOTAL 5.2 g/dL (6.1-8.1)
--- NOTE | 2019-07-14 07:46 | PM.PN ---
Subjective Subjective: Interval history: Michelle reports she feels okay currently. No chest discomfort at this point. Shortness of breath is less. Medications: Reviewed: Yes Vitals/I&O/Wt Last Vital Signs Temp 97.5 F L 07/14/19 07:15 Pulse 67 07/14/19 07:15 Resp 20 H 07/14/19 07:15 BP 116/73 07/14/19 07:15 Pulse Ox 100 07/14/19 07:15 07/13/19 07/14/19 07/14/19 22:59 06:59 14:59 Intake Total 410 / 530 100 / 630 Output Total 500 / 500 300 / 800 Balance -90 / 30 -200 / -170 Weight last 48 hrs Weight 81.647 kg Weight 81.465 kg Physical Exam Narrative: EXAM NARRATIVE: General exam is no apparent distress Cardiovascular regular rate and rhythm without murmur Lungs clear Abdomen is soft, positive bowel sounds Extremities no cyanosis clubbing. 1+ to 2+ lymphedema noted lower extremities Data : 07/13/19 03:55 07/14/19 04:15 A&P Assessment and plan (1) SOB (shortness of breath): Secondary to congestive heart failure, improved. Had concomitant chest discomfort. Cardiology consultation ordered. Angiogram being considered today. Status: Acute (2) Congestive heart failure: Better compensated but sodium slightly lower. She did receive some saline yesterday in preparation for the angiogram and her evening dose of Lasix was held. Overall she is only about 500 cc down from admission and may require further diuresis. Her Lasix may need to be increased to 60 mg twice daily following the angiogram. Status: Acute Qualifiers: Heart failure chronicity: acute on chronic Heart failure type: diastolic Qualified Code(s): I50.33 - Acute on chronic diastolic (congestive) heart failure (3) CAD (coronary artery disease): Cardiology consultation. Continue aspirin, beta-masha, statin. Blood pressure under control. Previous nuclear stress testing May 2019 demonstrated normal EF, some reversibility inferior wall region with scar in this region as well. Troponin with no significant delta. Consideration of angiogram today Status: Acute Qualifiers: Coronary Disease-Associated Artery/Lesion type: [place] artery [place] vs. transplanted heart: [place] Associated angina: with unstable angina Qualified Code(s): I25.110 - Atherosclerotic heart disease of [place] coronary artery with unstable angina pectoris (4) Hyponatremia: Slightly worse. Continue fluid restriction to 1200 cc. May need increase in Lasix dose. See notation above, regarding CHF Status: Acute (5) Hypertension: Stable Status: Acute Qualifiers: Hypertension type: essential hypertension Qualified Code(s): I10 - Essential (primary) hypertension (6) Hypothyroidism: Status: Acute Qualifiers: Hypothyroidism type: postoperative Qualified Code(s): E89.0 - Postprocedural hypothyroidism (7) Non-insulin dependent type 2 diabetes mellitus: Status: Acute (8) DVT (deep venous thrombosis): On Eliquis for left upper extremity DVT. Eliquis currently held pending angiogram Status: Acute Qualifiers: DVT location: upper extremity Affected thrombotic vein of extremity: other upper extremity vein Chronicity: unspecified Laterality: right Qualified Code(s): I82.621 - Acute embolism and thrombosis of deep veins of right upper extremity (9) Acute kidney injury: Status: Acute (10) Lymphedema: Unchanged Status: Acute Additional A&P Information Hypocalcemia, to get outpatient endocrine follow-up Hypokalemia, will supplement Concern of Covid 19. Testing is negative. Chronic kidney disease, creatinine stable. Anemia, stable. Slight decrease likely delusional Type 2 diabetes. Sliding scale insulin. Full code Eliquis for DVT prophylaxis, but holding for potential procedure tomorrow. SCDs currently. Attestations Medical Necessity Statement*: Needs continued hospitalization for further exploration of chest pain and positive stress test Coding Level of Care Code Acute Roofing Layer for Chg Fwd Diagnoses SOB (shortness of breath) R06.02 Congestive heart failure I50.33 Heart failure chronicity: acute on chronic Heart failure type: diastolic CAD (coronary artery disease) I25.110 Coronary Disease-Associated Artery/Lesion type: [place] artery [place] vs. transplanted heart: [place] Associated angina: with unstable angina Hyponatremia E87.1 Hypertension I10 Hypertension type: essential hypertension Hypothyroidism E89.0 Hypothyroidism type: postoperative Non-insulin dependent type 2 diabetes mellitus E11.9 DVT (deep venous thrombosis) I82.621 DVT location: upper extremity Affected thrombotic vein of extremity: other upper extremity vein Chronicity: unspecified Laterality: right Acute kidney injury N17.9 Lymphedema I89.0
--- NOTE | 2019-07-14 08:00 | XACV_ITS ---
Exam Room: [facility] Ht: 157 cm Wt: 82 kg BSA: 1.92 m2 Gender: Female : 1945 Exam Priority: Routine Procedure(s): Procedure Description: Diagnostic procedure Procedure Description: Left Heart Catheterization Procedure Description: Coronary Angiography Diagnostic Cath Status: Elective Diagnostic Findings No significant disease noted in the Left Main, LAD, Circumflex, or RCA coronary arteries. Coronary angiography shows right dominance. Conclusions Reason and indication for left heart: Worsening of chest pain, worsening of heart failure, abnormal stress test. No significant disease noted in the Left Main, LAD, Circumflex, or RCA coronary arteries. Recommendations Continue current medical management and risk factor modification. Diagnostic RX Recommendation: none LV EDP: 15 mmHg Pressures Phase:Rest AO : 116 mmHg / 68 mmHg ( 88 mmHg ) @ 8:20:00 AM 165 mmHg / 94 mmHg ( 71 mmHg ) @ 8:21:00 AM 121 mmHg / 58 mmHg ( 82 mmHg ) @ 8:32:00 AM 119 mmHg / 57 mmHg ( 80 mmHg ) @ 8:33:00 AM LV : 1 mmHg / -4 mmHg / @ 8:30:00 AM 105 mmHg / 14 mmHg / @ 8:32:00 AM 123 mmHg / -3 mmHg / @ 8:32:00 AM 122 mmHg / -7 mmHg / @ 8:32:00 AM Valves Phase:DefaultPhase AV : 0.0 mmHg @ 1:45:42 PM AV Mean Gradient: 0.0 mmHg @ 1:45:42 PM Clinical Evaluation EBL: 5mL-10mL Procedural Details Procedure Consent Obtained. Pre-Procedure Time Out. Identified patient by full name and date of as verbalized by the patient/guarantor. Does the consent match the physician's order: Yes. Accurate & Complete Informed Consent: Yes. Inpatient/Outpatient History & Physical on Chart: Yes. The risks, benefits, and alternatives of sedation and/or procedure were discussed by physician. The patient agrees to continue. Procedure started. Correct patient, site and procedure confirmed by cath team. PERRLA. Strong, equal hand machine learning intern bilaterally. Lungs clear x 5 lobes. IV Site on Arrival: 20 gauge in the right anticubital. IV Fluids: 0.9% NaCl at KVO. 250 mL infused prior to mobile lab technician. Pre Procedural Pulses: bilateral dorsalis pedis was Doppled. Pre Procedural Pulses: right radial was 2+. Oxygen started at 2liters/min via nasal canula. bilateral groins was prepped with chloroprep then draped in the usual sterile fashion. right radial was prepped with chloroprep then draped in the usual sterile fashion. Physician notified. Baseline sample Acquired. HR: 76 BPM. Patient's family unavailable. Equipment: 6F - Radial. Physician arrived. Physician scrubbed in. [facility] Clinical Fraility Score: 4: Vulnerable. Csr Indications: Other recurrent CHF. Chest Pain Symptom Assessment: Atypical Angina. Current diagnosis: Unstable angina. Immediate Pre-Procedure Time Out. Correct Patient: Yes; Correct Procedure: Yes; Correct Site: Yes; Correct Patient Position: Yes; Correct Supplies: Yes; Dried Flammable Prep: Yes; Blood Products Available: N/A;. Lidocaine 1% infiltrated to the right radial. Allergies: Zosyn, methylpredisolone. Arterial access obtained. A 6 cypriot TIG catheter in over wire. Catheter inserted over the exchange wire. Multiple views taken of left coronary artery. Catheter redirected to the RCA. Multiple views taken of right coronary artery. Catheter out. A 5 cypriot Angled Pig catheter in over wire. EDP Sample taken: LV 105/14,15; HR: 72 BPM; SpO2: 100%. LV EDP: 15. EDP Sample taken: LV 123/-4,14; HR: 71 BPM; SpO2: 100%. Pullback taken: LV 122/-8,14; AO 121/58(82); Mean: 0mmHg, Peak to Peak: 0mmHg, SEP: 7sec/min; HR: 73 BPM; SpO2: 100%. TR band placed. Hemostasis obtained. Post Procedure: Pulses reassessed and unchanged. PERRLA. Strong, equal hand machine learning intern bilaterally. No VTE prophylaxis required. Medication's Wasted: Lidocaine 1% = 18 mL. Medication's Wasted: Nitro = 49.8 mL. Medication's Wasted: Versed = 4 mg. Medication's Wasted: Fentnyl = 50 mg. Medication's Wasted: Heparin = 2000 Units. Total IV fluids: 50 mL. Fluoro: 5:01. Contrast type used: Omnipaque 300 mgI/mL, 500 mL bottle. Contrast Material : Omnipaque 51 ml. Post-op diagnosis: normal coronaries. Complications: none. Estimated blood loss: 5mL-10mL. Procedure completed. Patient transferred by wheelchair to [address] [place] [address]. Site: Right Radial artery Sheath Size: 6 Fr Hemostasis Success: Unsuccessful Procedure Medications Start: 1:00 PM Stop: 1:00 PM Medication: Versed Amount: 1 mg Route: I.V. Start: 1:00 PM Stop: 1:00 PM Medication: Fentanyl Amount: 25 mcg Route: I.V. Start: 1:11 PM Stop: 1:11 PM Medication: Versed Amount: 1 mg Route: I.V. Start: 1:19 PM Stop: 1:19 PM Medication: Versed 1 mg and Fentanyl 25 mcg Amount: 1 Route: I.V. Start: 1:19 PM Stop: 1:19 PM Medication: Nitrogylcerin Amount: 200 mcg Route: I.A. Start: 1:20 PM Stop: 1:20 PM Medication: Heparin Amount: 4000 units Route: I.V. I, the attending physician, have reviewed and verified all procedure medications. Yes, all medications given per verbal order History/Risk Factors Hypertension: Yes Dyslipidemia: Yes Diabetic Therapy: Insulin Peripheral Arterial Disease (PAD): Yes Obesity: Yes Tobacco Use: Never Report Signatures Finalized by:Eddie Avery MD on 07/24/2019 5:40:03 PM
[2019-07-14 08:37] LABS: Basophils % 0.2 %; Eosinophils # 0.1 10^3/uL (0.0-0.8); Eosinophils % 1.4 %; Hematocrit 32.3 % (37.0-47.0); Hemoglobin 10.3 g/dL (11.5-15.3); Lymphocytes # 0.5 10^3/uL (0.8-4.8); Lymphocytes % 10.4 %; Mean Corpuscular HGB Conc 31.9 g/dL (30.0-36.0); Mean Corpuscular Hemoglobin 28.6 pg (28.0-34.0); Mean Corpuscular Volume 89.7 fL (81-99); Mean Platelet Volume 9.7 fL (7.4-10.4); Monocytes # 0.4 10^3/uL (0.2-0.9); Monocytes % 7.3 %; Neutrophils # 3.9 10^3/uL (1.8-7.7); Neutrophils % 80.3 %; Nucleated Red Blood Cells % 0 %; Platelet Count 375 10^3/cmm (130-400); Red Cell Distribution Width 15.6 % (12.1-15.1); White Blood Count 4.9 10^3/uL (4.0-10.0)
--- NOTE | 2019-07-14 08:58 | PC.SOCIAL ---
IM initialed, explained and copy provided. Pt verbalized understanding no questions.
[2019-07-14 09:11] LABS: Magnesium 2.3 mg/dL (1.7-2.3)
--- NOTE | 2019-07-14 09:40 | PC.CHAP ---
Pastoral Care Encounter/Spiritual Assessment Type of Contact [] Declined research and development chemist visit [] Patient/Family/Request visit [] Outpatient visit [] Follow-up visit [] Physician referral [] Code/Alert [x] Routine visit [] Staff referral [] Actively dying [] Patient sleeping [] Family support [] [] Out of room [] Palliative care [] [] Receiving care in room [] Pre-surgical visit [] Trauma [] Long length of stay [] ICU visit [] Other: Relational/Emotional Strength x[] Patient feels connected with others/family/visitors/staff [] Distress [] Loneliness/isolation [] Abandonment Spirituality of Patient [x] Person of Jaky [x] Attends Anglican of their Jaky [x] Believes in Prayer [] Reads Bible or Orthodox materials [] There are Spiritual issues to be addressed Rnp Interventions [x] Prayer [x] Active listening [x] Non-anxious presence [x] Spiritual/emotional support [] Crisis/trauma care [x] Spiritual counseling [] Bereavement support [] Provided bereavement packet [] Provided Bible/devotional materials [] Provided toy/stuffed animal, coloring book to patient or family member [] Provided Communion [] Anointing/[place] [] Salvation [] Completed spiritual assessment [] Other: Impact on Illness or Injury [] Angry [] Fearful [] Anxious [] Often cries [] Exhaustion [] Unable to work [] Unable to attend episcopalian [] Unable to walk/stand [] Unable to read [] Unable to drive [] Unable to eat/drink [] Unable to sleep [] Unable to be with family [] Patient intubated [x] Other: Summary Time spent with patient 5 minutes
[2019-07-14 10:59] LABS: Glucose Point of Care 105 mg/dL (70-110)
[2019-07-14] MEDS: sodium chloride 0.9% 1,000 ML 50 ML IV (11:32)
[2019-07-14] MEDS: diphenhydrAMINE 50 mg Capsule PO (11:44)
[2019-07-14] MEDS: aspirin 325 mg Tablet PO (11:44)
[2019-07-14] MEDS: clopidogrel 75 mg Tablet PO (11:44)
[2019-07-14 11:46] LABS: KAPPA LIGHT CHAIN, FREE, SERUM 33.9 mg/L (3.3-19.4); KAPPA/LAMBDA LIGHT CHAINS FREE 1.19 (0.26-1.65); LAMBDA LIGHT CHAIN, FREE, SERU 28.5 mg/L (5.7-26.3)
--- NOTE | 2019-07-14 12:39 | PC.NURSE ---
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
--- NOTE | 2019-07-14 13:04 | W.PM.OPSUD ---
Surgery/Procedure H&P Update DATE OF PROCEDURE: July 14, 2019 DATE H&P PERFORMED: 07/14/19 H&P UPDATE INFORMATION: I have reviewed H&P completed within last 30 days, I have examined patient prior to procedure and No changes to prior documentation PREOP DIAGNOSIS: Recurrent heart failure, angina PRIMARY INDICATION FOR PROCEDURE: Recurrent admission for worsening of heart failure, angina despite of optimization of medicine. PLANNED PROCEDURE: Operation Date: 07/14/19 12:30 Proposed Procedures p Cardiac Catheterization(Left) - Eddie Avery MD PATIENT REASSESSED PRIOR TO SEDATION, WITH NO CHANGE NOTED: Yes PHYSICAL EXAM: alert, oriented x 3 and clear to auscultation bilaterally AIRWAY EVAL/ANESTHESIA PLAN: ASA II
--- NOTE | 2019-07-14 13:43 | P.PN_ITS ---
Subjective Subjective: Interval history: No acute events. She underwent cath earlier today Medications: Reviewed: Yes Medication Review Details: Current Medications Acetaminophen (Tylenol) 650 mg PO Q6H PRN PRN Reason: Mild/Mod Pain Or Temp >/= 101 Last Admin: 07/13/19 22:27 Dose: 650 mg Documented by: Albuterol Sulfate (Albuterol) 2.5 mg INHALATION Q4H.RESPIRATORY PRN PRN Reason: SHORTNESS OF BREATH Last Admin: 07/14/19 08:37 Dose: 2.5 mg Documented by: Aspirin (Aspirin Ec) 81 mg PO DAILY [facility] Last Admin: 07/14/19 10:24 Dose: Not Given Documented by: Atorvastatin Calcium (Lipitor) 20 mg PO DAILY [facility] Last Admin: 07/14/19 10:23 Dose: Not Given Documented by: Bisacodyl (Dulcolax) 10 mg PO DAILY PRN PRN Reason: CONSTIPATION Dextrose (D50w) 25 ml IVP ONCE PRN; Protocol PRN Reason: hypoglycemia protocol Dextrose (D50w) 50 ml IVP PRN PRN; Protocol PRN Reason: hypoglycemia protocol Fenofibrate (Tricor) 48 mg PO DAILY [facility] Last Admin: 07/14/19 10:24 Dose: Not Given Documented by: Furosemide (Lasix) 40 mg IVP Q12H [facility] Last Admin: 07/13/19 06:50 Dose: 40 mg Documented by: Glucagon (Glucagen) 1 mg IM ONCE PRN; Protocol PRN Reason: Adult Acute Hypoglycemia Prot. Heparin Sodium (Beef Lung) (Heparin) 5,000 unit SUBCUT Q8H [facility] Last Admin: 07/14/19 05:43 Dose: 5,000 unit Documented by: Dextrose (D5w) 500 mls @ 100 mls/hr IV ONCE PRN; Protocol PRN Reason: Adult Acute Hypoglycemia Prot Sodium Chloride (Sodium Chloride 0.9%) 1,000 mls @ 50 mls/hr IV .Q20H ONE Stop: 07/15/19 03:59 Last Admin: 07/14/19 11:32 Dose: 50 mls/hr Documented by: Insulin Aspart (Novolog) 0 unit SUBCUT TIDWM KELLY; Protocol Last Admin: 07/14/19 12:35 Dose: Not Given Documented by: Levothyroxine Sodium (Synthroid) 125 mcg PO DAILY [facility] Last Admin: 07/14/19 10:24 Dose: Not Given Documented by: Metoprolol Tartrate (Lopressor) 25 mg PO 0900,2099 [facility] Last Admin: 07/14/19 10:23 Dose: Not Given Documented by: Non-Formulary Medication (Calcium Carbonate) 390 mg PO TID [facility] Last Admin: 07/14/19 10:19 Dose: Not Given Documented by: Pantoprazole Sodium (Protonix) 40 mg PO 0900,2099 [facility] Last Admin: 07/14/19 10:23 Dose: Not Given Documented by: Fluticasone/Salmeterol (Advair Diskus 500-50) 1 puff INHALATION BID.RESPIRATORY [facility] Last Admin: 07/14/19 08:37 Dose: 1 inhalation Documented by: Tiotropium [place] (Spiriva) 18 mcg INHALATION DAILY.RESPIRATORY [facility] Last Admin: 07/14/19 08:37 Dose: 18 mcg Documented by: Vitals/I&O/Wt Last Vital Signs Temp 98.5 F 07/14/19 11:11 Pulse 89 07/14/19 11:11 Resp 22 H 07/14/19 11:11 BP 108/58 07/14/19 11:11 Pulse Ox 91 07/14/19 11:11 07/13/19 07/14/19 07/14/19 22:59 06:59 14:59 Intake Total 410 / 530 100 / 630 Output Total 500 / 500 300 / 800 Balance -90 / 30 -200 / -170 Weight last 48 hrs Weight 180 lb Weight 179 lb 9.6 oz Physical Exam Narrative: EXAM NARRATIVE: GENERAL: obese woman in no acute distress HEENT: Extraocular movement intact. Pupils equal round reactive to light. No icterus. NECK: central trachea, no JVD. CARDIOVASCULAR SYSTEM: S1-S2 regular. No murmur rubs or gallops. RESPIRATORY SYSTEM: Chest clear to auscultation. No wheezes rhonchi or rubs heard. EXTREMITIES: No cyanosis or clubbing. trace leg pitting edema. + non pitting edema CHIP UNLOADER: Patient is alert oriented ?3. No focal neurological deficits. Cranial nerves intact. Data : 07/14/19 04:15 07/14/19 04:15 A&P Assessment and plan (1) Chest pain: Patient has had recurrent episodes of chest pains as well as CHF exacerbations requiring hospitalization in spite of compliance with medications. -Stress test with moderate sized area of decreased tracer uptake in inferior inferolateral and apical regions with mild reversibility inferior wall. -Continue aspirin, statin and metoprolol tartrate. -Normal coronaries on coronary angiogram today; LVEDP 15 mm Hg. Status: Acute Qualifiers: Ischemic chest pain type: unstable angina pectoris (2) Congestive heart failure: She did receive lasix 40 mg IV x 2 yesterday. No doses held. Clinically she does not look overtly fluid overloaded. I do not think urine output has been adequately documented. -As contrast use was just 50 ml, possibly will give her lasix 60 mg IV later this afternoon. - LVEDP of 15 on [facility]. Status: Acute Qualifiers: Heart failure chronicity: acute on chronic Heart failure type: diastolic Qualified Code(s): I50.33 - Acute on chronic diastolic (congestive) heart failure (3) CAD (coronary artery disease): Clean coronaries by [facility]. -continue ASA and statin for now. No plavix. Status: Acute Qualifiers: Coronary Disease-Associated Artery/Lesion type: [place] artery [place] vs. transplanted heart: [place] heart Associated angina: with unstable angina Qualified Code(s): I25.110 - Atherosclerotic heart disease of [place] coronary artery with unstable angina pectoris (4) DVT (deep venous thrombosis): Venous duplex (05/19/19): SVT RIGHT basilic vein at PICC insertion site. On Eliquis at home -was held for cath. Status: Acute Qualifiers: DVT location: upper extremity Affected thrombotic vein of extremity: other upper extremity vein Chronicity: unspecified Laterality: right Qualified Code(s): I82.621 - Acute embolism and thrombosis of deep veins of right upper extremity (5) Non-insulin dependent type 2 diabetes mellitus: Status: Acute (6) Hypertension: BP running low normal. continue to closely monitor. 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 However, her Hbhas ranged from 7.4-10.6 in last few weeks. Lymphedema Thank you for allowing me to participate in patient's care. Please feel free to call with questions or concerns. Attestations Medical Necessity Statement*: For CHF and DELLA Coding Level of Care Code Acute Broadcast Systems Engineer for Chg Fwd Diagnoses Chest pain R07.9 Ischemic chest pain type: unstable angina pectoris Congestive heart failure I50.33 Heart failure chronicity: acute on chronic Heart failure type: diastolic CAD (coronary artery disease) I25.110 Coronary Disease-Associated Artery/Lesion type: [place] artery [place] vs. transplanted heart: [place] heart Associated angina: with unstable angina DVT (deep venous thrombosis) I82.621 DVT location: upper extremity Affected thrombotic vein of extremity: other upper extremity vein Chronicity: unspecified Laterality: right Non-insulin dependent type 2 diabetes mellitus E11.9 Hypertension I10 Hypertension type: essential hypertension Hypothyroidism E89.0 Hypothyroidism type: postoperative
[2019-07-14 14:30] LABS: ALBUMIN 2.4 g/dL (3.8-4.8); ALPHA 1 GLOBULIN 0.4 g/dL (0.2-0.3); BETA 1 GLOBULIN 0.4 g/dL (0.4-0.6); BETA 2 GLOBULIN 0.3 g/dL (0.2-0.5); GAMMA GLOBULIN 0.8 g/dL (0.8-1.7)
[2019-07-14 16:31] LABS: Glucose Point of Care 109 mg/dL (70-110)
[2019-07-14] MEDS: FUROsemide 10 mg/mL SDV 10mL 60 MG IVP (17:35)
[2019-07-14 20:35] LABS: Glucose Point of Care 137 mg/dL (70-110)
[2019-07-14] MEDS: metoprolol tartrate 25 mg Tablet PO (20:57)
[2019-07-14] MEDS: pantoprazole DR 40 mg Tablet PO (20:57)
[2019-07-15] VITALS (8 sets, daily range): BP systolic 95–126; BP diastolic 50–84; PULSE 75–87; RESP 16–18; TEMP 36.6–36.8; O2SAT 85–99
[2019-07-15 05:42] LABS: Basophils % 0.2 %; Eosinophils % 0.8 %; Hematocrit 31.9 % (37.0-47.0); Hemoglobin 9.8 g/dL (11.5-15.3); Lymphocytes # 0.4 10^3/uL (0.8-4.8); Lymphocytes % 6.8 %; Mean Corpuscular HGB Conc 30.7 g/dL (30.0-36.0); Mean Corpuscular Hemoglobin 27.8 pg (28.0-34.0); Mean Corpuscular Volume 90.4 fL (81-99); Mean Platelet Volume 9.5 fL (7.4-10.4); Monocytes # 0.3 10^3/uL (0.2-0.9); Monocytes % 6.4 %; Neutrophils # 4.5 10^3/uL (1.8-7.7); Neutrophils % 85.4 %; Nucleated Red Blood Cells % 0 %; Platelet Count 337 10^3/cmm (130-400); Red Blood Count 3.53 10^6/uL (4.1-5.3); Red Cell Distribution Width 15.5 % (12.1-15.1); White Blood Count 5.3 10^3/uL (4.0-10.0)
[2019-07-15] MEDS: heparin 5,000 unit/mL INJ 1 mL 5000 UNIT SUBCUT ×2 (05:54→11:21)
[2019-07-15 06:28] LABS: Alanine Aminotransferase < 5 U/L (0-33); Albumin Level 3.1 g/dL (3.5-5.2); Alkaline Phosphatase 68 IU/L (35-105); Anion Gap 19.6 (5-19); Aspartate Amino Transferase 11 U/L (0-32); Blood Urea Nitrogen 8 mg/dL (8-23); Calcium 7.2 mg/dL (8.5-10.5); Carbon Dioxide 26 mmol/L (22-29); Chloride 86 mmol/L (98-107); Globulin 3.5 g/dL (1.3-4.6); Glucose 104 mg/dL (65-115); Osmolality Calculated 262 mOsm/kg (285-295); Potassium 3.6 mmol/L (3.5-5.1); Sodium 128 mmol/L (136-145); Total Bilirubin 0.4 mg/dL (0.15-1.2); Total Protein 6.6 g/dL (6.6-8.7)
[2019-07-15 06:41] LABS: Glucose Point of Care 126 mg/dL (70-110)
[2019-07-15] MEDS: FUROsemide 10 mg/mL SDV 4mL 40 MG IVP (08:10)
[2019-07-15] MEDS: aspirin 81 mg EC Tablet PO (08:10)
[2019-07-15] MEDS: levothyroxine 125 mcg Tablet PO (08:11)
[2019-07-15] MEDS: pantoprazole DR 40 mg Tablet PO (08:11)
[2019-07-15] MEDS: fenofibrate 48 mg Tablet PO (08:12)
[2019-07-15] MEDS: atorvastatin 40 mg Tablet 20 MG PO (08:12)
[2019-07-15 10:44] LABS: Glucose Point of Care 143 mg/dL (70-110)
--- NOTE | 2019-07-15 11:06 | PM.DCS ---
Discharge Providers Date of Admission: 07/11/19 13:48 Date of Discharge: July 15, 2019 Attending Provider at Admission: Kishan Riddle MD Attending Provider at Discharge: Claude Parra MD Primary Care Provider: Viktor Baker MD Diagnoses at Discharge Discharge Diagnosis (1) Chest pain: Status: Acute Problem details: Resolved. Angiogram negative. Qualifiers: Ischemic chest pain type: unstable angina pectoris (2) Congestive heart failure: Status: Acute Problem details: Diastolic type. Appears to be well compensated currently Qualifiers: Heart failure chronicity: acute on chronic Heart failure type: diastolic Qualified Code(s): I50.33 - Acute on chronic diastolic (congestive) heart failure (3) CAD (coronary artery disease): Status: Acute Problem details: Coronaries appeared normal on angiogram Qualifiers: Coronary Disease-Associated Artery/Lesion type: [place] artery [place] vs. transplanted heart: [place] heart Associated angina: with unstable angina Qualified Code(s): I25.110 - Atherosclerotic heart disease of [place] coronary artery with unstable angina pectoris (4) DVT (deep venous thrombosis): Status: Acute Problem details: Resume anticoagulant on discharge Qualifiers: DVT location: upper extremity Affected thrombotic vein of extremity: other upper extremity vein Chronicity: unspecified Laterality: right Qualified Code(s): I82.621 - Acute embolism and thrombosis of deep veins of right upper extremity (5) Non-insulin dependent type 2 diabetes mellitus: Status: Acute (6) Hypertension: Status: Acute Qualifiers: Hypertension type: essential hypertension Qualified Code(s): I10 - Essential (primary) hypertension (7) Hypothyroidism: Status: Acute Problem details: Well-controlled Qualifiers: Hypothyroidism type: postoperative Qualified Code(s): E89.0 - Postprocedural hypothyroidism Reason for Visit Reason for Visit: Reason For Visit: CHEST PAIN, DYSPNEA Hospital Course Hospital Course: Michelle presented to the hospital with shortness of breath, and chest discomfort. There was concern on admission that she had some acute diastolic heart failure. Previous echocardiogram demonstrated preserved EF. Diuresis was started with IV Lasix. Hyponatremia was noted on admission. She had had a previous myocardial perfusion scan that had mild abnormality. A CT of her chest was done while in the hospital, demonstrating possible chronic atelectasis and left upper lobe attenuation possible viral pneumonitis. Influenza a and COVID testing were done which were both negative. Secondary to her previous mild abnormality and stress testing cardiology consultation was obtained. Patient underwent a coronary angiogram, on July 13 demonstrating normal coronary arteries. The following day the patient wished to go home. During her hospital stay she did struggle with some hyponatremia, treated with fluid restriction and Lasix. This was thought to be mainly secondary to her diastolic heart failure. On day of discharge her sodium was 128, creatinine 1.2. She had no obvious confusion, was feeling strong, on her baseline oxygen, afebrile, and chest pain-free. Therefore she was sent home for further follow-up with cardiology and her outpatient physician. Her Eliquis for her upper extremity DVT which is been on hold for angiogram will be resumed. She has approximately 1 more month of therapy left. She will need a BMP on follow-up with her primary care provider. I also discussed with her primary her current laboratory and plans. There will be consideration of colonoscopy as her last one was in 2010 and she has anemia. However, when I mentioned this to patient on discharge she reported she did not want to have another colonoscopy done. She will also continue her fluid restriction at home, a 1500 cc. Physical Exam Narrative: EXAM NARRATIVE: General exam no apparent distress Cardiovascular regular rate and rhythm without murmur Lungs clear Abdomen is soft with positive bowel sounds Extremities no cyanosis clubbing or edema Discharge Data Data Completed and Pending: Completed Studies During Hospitalization Category Date Time Status CT chest wo con 7 1250 Urgent Cat Scan 07/11/19 15:07 Completed XR chest 1V elsa ble [id number] Stat Exams 07/11/19 10:42 Completed Pending at discharge Category Date Time Status POST ACUTE CARE NURSE request for service Routin e Exams 07/14/19 08:00 Taken Immunochemical Fe christina OCB Routine Lab 07/13/19 14:18 Uncollected Labs from last 24 hours 07/15/19 07/15/19 07/15/19 10:29 06:19 05:04 WBC RBC Hgb Hct MCV MCH MCHC RDW Plt Count MPV Neut % (Auto) Lymph % (Auto) [place] % (Auto) Eos % (Auto) Baso % (Auto) Neut # (Auto) Lymph # (Auto) [place] # (Auto) Eos # (Auto) Baso # (Auto) Nucleated RBC % (a uto) Nucleated RBCs # Sodium 128 L Potassium 3.6 Chloride 86 L Carbon Dioxide 26 Anion Gap 19.6 H BUN 8 Creatinine 1.2 H Glucose 104 POC Glucose 143 126 Calculated Osmolal ity 262 L Calcium 7.2 L Total Bilirubin 0.4 AST 11 ALT < 5 Alkaline Phosphata se 68 Total Protein 6.6 Albumin 3.1 L Globulin 3.5 Nkvzf-5-Vrzmfasqv Thcit-0-Nljksgvlu Nrjc-5-Uvabowjs Kbod-4-Nrbtbubj Gamma Globulins Pro Electrophoresi s Int Free [place]to[place] Light C hains Free Lambda Light Chain Free [place]/Lambda Ratio 07/15/19 07/14/19 07/14/19 05:04 20:16 16:16 WBC 5.3 RBC 3.53 L Hgb 9.8 L Hct 31.9 L MCV 90.4 MCH 27.8 L MCHC 30.7 RDW 15.5 H Plt Count 337 MPV 9.5 Neut % (Auto) 85.4 Lymph % (Auto) 6.8 [place] % (Auto) 6.4 Eos % (Auto) 0.8 Baso % (Auto) 0.2 Neut # (Auto) 4.5 Lymph # (Auto) 0.4 L [place] # (Auto) 0.3 Eos # (Auto) 0.0 Baso # (Auto) 0.0 Nucleated RBC % (a uto) 0 Nucleated RBCs # 0.0 Sodium Potassium Chloride Carbon Dioxide Anion Gap BUN Creatinine Glucose POC Glucose 137 109 Calculated Osmolal ity Calcium Total Bilirubin AST ALT Alkaline Phosphata se Total Protein Albumin Globulin Vepzl-7-Wpuflenpy Dokqi-5-Lpynpwiqv Afxu-0-Cjodmbvb Fjdc-9-Olkfxpfi Gamma Globulins Pro Electrophoresi s Int Free [place] Light C hains Free Lambda Light Chain Free [place]/Lambda Ratio 07/13/19 07/13/19 03:55 03:55 WBC RBC Hgb Hct MCV MCH MCHC RDW Plt Count MPV Neut % (Auto) Lymph % (Auto) [place] % (Auto) Eos % (Auto) Baso % (Auto) Neut # (Auto) Lymph # (Auto) [place] # (Auto) Eos # (Auto) Baso # (Auto) Nucleated RBC % (a uto) Nucleated RBCs # Sodium Potassium Chloride Carbon Dioxide Anion Gap BUN Creatinine Glucose POC Glucose Calculated Osmolal ity Calcium Total Bilirubin AST ALT Alkaline Phosphata se Total Protein Albumin 2.4 L Globulin Jtcik-2-Kbbxpujak 0.4 H Klmsu-4-Nxnnhjyfg 1.0 H Sikh-6-Qjnrbxjv 0.4 Meke-2-Yoqyjglk 0.3 Gamma Globulins 0.8 Pro Electrophoresi s Int See note Free [place] Light C hains 33.9 H Free Lambda Light Chain 28.5 H Free [place]/Lambda Ratio 1.19 Vitals: Last Vital Signs Temp 97.8 F 07/15/19 07:26 Pulse 82 07/15/19 08:07 Resp 18 07/15/19 08:03 BP 96/58 07/15/19 07:26 Pulse Ox 98 07/15/19 08:03 Discharge Plan Discharge Patient Disposition: Home Health Service Condition: Stable Prescriptions: Continued potassium chloride 20 mEq tablet extended release 10 meq PO BID RF: 0 cyanocobalamin (vitamin B-12) [B-12 DOTS] 500 mcg tablet 1,000 mcg PO DAILY RF: 0 metoprolol tartrate 25 mg tablet 25 mg PO BID RF: 0 folic acid 1 mg tablet 1 mg PO DAILY RF: 0 albuterol sulfate 2.5 mg/0.5 mL solution for nebulization 2.5 mg INHALATION Q6H PRN (Reason: unknown) RF: 0 Anoro Ellipta 62.5-25 mcg/actuation blister with device 1 inh INHALATION DAILY RF: 0 albuterol sulfate [Ventolin HFA] 90 mcg/actuation HFA aerosol inhaler 2 puff INHALATION Q6H PRN (Reason: unknown) RF: 0 acetaminophen 325 mg Tablet 650 mg PO Q6H PRN (Reason: Mild/Mod Pain Or Temp >/= 101) Qty: 30 RF: 0 levothyroxine 175 mcg Tablet 175 mcg PO DAILY 30 Days Qty: 30 RF: 0 Januvia 100 mg PO DAILY 30 Days Qty: 30 RF: 0 fenofibrate 48 mg PO DAILY 30 Days Qty: 30 RF: 0 omeprazole 40 mg PO DAILY 30 Days Qty: 30 RF: 0 furosemide [Lasix] 40 mg tablet 60 mg PO BID Qty: 90 RF: 0 magnesium oxide 400 mg magnesium capsule 400 mg PO BID Qty: 60 RF: 0 calcium carbonate 390 mg calcium (1,000 mg) tablet 390 mg PO TID Qty: 90 RF: 0 simvastatin 40 mg Tablet 40 mg PO DAILY RF: 0 Myrbetriq 25 mg tablet extended release 24 hr 25 mg PO DAILY RF: 0 Miralax 17 gram/dose Powder 17 g PO DAILY PRN (Reason: Constipation) RF: 0 Eliquis 5 mg Tablet 5 mg PO BID RF: 0 Discontinued aspirin 81 mg tablet,delayed release (DR/EC) 81 mg PO DAILY RF: 0 Discharge Orders: Discharge Order (Routine); Ordered 07/15/19 Ordered By: Claude Parra Referrals: Viktor Baker MD [Primary Care Provider] - 4-7 days (With CBC, BMP) Shawna Turner MD [Physician] - 1 week Discharge Diet: Cardiac and Diabetic Discharge Activity: Resume usual activity Activity Restrictions/Additional Instructions: Take all medicine as prescribed Resume her home oxygen Fluid restrict to 1500 cc Follow-up with Dr. Baker regarding other testing done at the hospital such as serum protein electrophoresis, further work-up of anemia including possible colonoscopy. Discharge Attestations Time Spent in Discharge Care*: greater than 30 min Status at Discharge: Cognitive status at discharge: cognitively intact, Behavioral status at discharge: cooperative, Quality Metrics Clinical Quality Measures During this hospital stay, did patient experience: None Coding Level of Care Code Acute Certified Medication Technician for Chg Fwd Diagnoses Chest pain R07.9 Ischemic chest pain type: unstable angina pectoris Congestive heart failure I50.33 Heart failure chronicity: acute on chronic Heart failure type: diastolic CAD (coronary artery disease) I25.110 Coronary Disease-Associated Artery/Lesion type: [place] artery [place] vs. transplanted heart: [place] heart Associated angina: with unstable angina DVT (deep venous thrombosis) I82.621 DVT location: upper extremity Affected thrombotic vein of extremity: other upper extremity vein Chronicity: unspecified Laterality: right Non-insulin dependent type 2 diabetes mellitus E11.9 Hypertension I10 Hypertension type: essential hypertension Hypothyroidism E89.0 Hypothyroidism type: postoperative
--- NOTE | 2019-07-15 12:52 | P.PN_ITS ---
Subjective Subjective: Interval history: No acute events overnight. Urine output 1.6 L and she is -6.7 mL from yesterday. Medications: Reviewed: Yes Vitals/I&O/Wt Last Vital Signs Temp 98.1 F 07/15/19 11:19 Pulse 78 07/15/19 11:19 Resp 16 07/15/19 11:19 BP 95/62 07/15/19 11:19 Pulse Ox 90 07/15/19 12:11 07/14/19 07/15/19 07/15/19 22:59 06:59 14:59 Intake Total 720 / 720 240 / 240 Output Total 730 / 730 350 / 1080 550 / 550 Balance -10 / -10 -350 / -360 -310 / -310 Weight last 48 hrs Weight 182 lb Weight 180 lb Physical Exam Narrative: EXAM NARRATIVE: GENERAL: obese woman in no acute distress HEENT: Extraocular movement intact. Pupils equal round reactive to light. No icterus. NECK: central trachea, no JVD. CARDIOVASCULAR SYSTEM: S1-S2 regular. No murmur rubs or gallops. RESPIRATORY SYSTEM: Chest clear to auscultation. No wheezes rhonchi or rubs heard. EXTREMITIES: No cyanosis or clubbing. trace lower leg pitting edema. + non pitting edema. Right wrist bruising noted however 2+ radial no hematoma. HYDRO STATION OPERATOR: Patient is alert oriented ?3. No focal neurological deficits. Cranial nerves intact. Data : 07/15/19 05:04 07/15/19 05:04 A&P Assessment and plan (1) Chest pain: Patient has had recurrent episodes of chest pains as well as CHF exacerbations requiring hospitalization in spite of compliance with medications. -Stress test with moderate sized area of decreased tracer uptake in inferior inferolateral and apical regions with mild reversibility inferior wall. -Continue aspirin, statin and metoprolol tartrate. -Normal coronaries on coronary angiogram today; LVEDP 15 mm Hg. Chest pains likely in setting of decompensated congestive heart failure and they have resolved. Status: Acute Qualifiers: Ischemic chest pain type: unstable angina pectoris (2) Congestive heart failure: She did receive lasix 60 mg IV yesterday and 40 mg IV this morning. No doses held. - LVEDP of 15 on [facility]. -Patient is to be discharged later today plan to discharge her on Lasix 80 mg p.o. every 12. -Follow-up in heart care services in 1 week for post cath follow-up Status: Acute Qualifiers: Heart failure chronicity: acute on chronic Heart failure type: diastolic Qualified Code(s): I50.33 - Acute on chronic diastolic (congestive) heart failure (3) CAD (coronary artery disease): Clean coronaries by [facility]. -continue ASA and statin for now. No plavix. Status: Acute Qualifiers: Coronary Disease-Associated Artery/Lesion type: [place] artery [place] vs. transplanted heart: [place] heart Associated angina: with unstable angina Qualified Code(s): I25.110 - Atherosclerotic heart disease of [place] coronary artery with unstable angina pectoris (4) DVT (deep venous thrombosis): Venous duplex (05/19/19): SVT RIGHT basilic vein at PICC insertion site. On Eliquis at home -was held for cath. Status: Acute Qualifiers: DVT location: upper extremity Affected thrombotic vein of extremity: other upper extremity vein Chronicity: unspecified Laterality: right Qualified Code(s): I82.621 - Acute embolism and thrombosis of deep veins of right upper extremity (5) Non-insulin dependent type 2 diabetes mellitus: Status: Acute (6) Hypertension: BP running low normal. continue to closely monitor. Status: Acute Qualifiers: Hypertension type: essential hypertension Qualified Code(s): I10 - Essential (primary) hypertension (7) Hypothyroidism: Status: Acute Qualifiers: Hypothyroidism type: postoperative Qualified Code(s): E89.0 - Postprocedural hypothyroidism Additional A&P Information DELLA: Cardiorenal in etiology; improving with diuresis Hyponatremia: Anemia: No active bleed, hemoglobin stable. Lymphedema Thank you for allowing me to participate in patient's care. Please feel free to call with questions or concerns. Attestations Medical Necessity Statement*: As per primary team. Coding Level of Care Code Acute Checking Department Supervisor for Idania Fwmarysol Diagnoses Chest pain R07.9 Ischemic chest pain type: unstable angina pectoris Congestive heart failure I50.33 Heart failure chronicity: acute on chronic Heart failure type: diastolic CAD (coronary artery disease) I25.110 Coronary Disease-Associated Artery/Lesion type: [place] artery [place] vs. transplanted heart: [place] heart Associated angina: with unstable angina DVT (deep venous thrombosis) I82.621 DVT location: upper extremity Affected thrombotic vein of extremity: other upper extremity vein Chronicity: unspecified Laterality: right Non-insulin dependent type 2 diabetes mellitus E11.9 Hypertension I10 Hypertension type: essential hypertension Hypothyroidism E89.0 Hypothyroidism type: postoperative
== END 2019-07-15 13:56 | disposition home health service (06) | DRG 286 ==
LOC: ER 14:47 → MEDSURG 14:48 → CSU 20:24 → MEDSURG 07-12 16:57
PROVIDERS: Internal Medicine Cardiovascular Disease; Admitting Provider Student in an Organized Health Care Education/Training Program; Emergency Provider Family Medicine; Family Provider Family Medicine; PCP Family Medicine; Visit Provider Internal Medicine
PROC: 4A023N7 Measurement of Cardiac Sampling and Pressure, Left Heart, Percutaneous Approach (ICD-10-PCS; principal; 2019-07-14 12:30)
DX: I13.0 Hypertensive heart and chronic kidney disease with heart failure and stage 1 through stage 4 chronic kidney disease, or unspecified chronic kidney disease (principal); I50.33 Acute on chronic diastolic (congestive) heart failure; I82.702 Chronic embolism and thrombosis of unspecified veins of left upper extremity; N17.9 Acute kidney failure, unspecified; E87.1 Hypo-osmolality and hyponatremia; N18.9 Chronic kidney disease, unspecified; E11.22 Type 2 diabetes mellitus with diabetic chronic kidney disease; Z85.850 Personal history of malignant neoplasm of thyroid; E89.0 Postprocedural hypothyroidism; G47.33 Obstructive sleep apnea (adult) (pediatric); K21.9 Gastro-esophageal reflux disease without esophagitis; Z79.01 Long term (current) use of anticoagulants; I25.2 Old myocardial infarction; I25.110 Atherosclerotic heart disease of native coronary artery with unstable angina pectoris; I89.0 Lymphedema, not elsewhere classified; D64.9 Anemia, unspecified; E53.8 Deficiency of other specified B group vitamins; Z87.01 Personal history of pneumonia (recurrent)
CPT/HCPCS: 12345; 36415; 36416; 36600; 71045; 71250; 80048; 80051; 80053; 81003; 82436; 82810; 82962; 83690; 83735; 83880; 83883; 83935; 83986; 84133; 84145; 84155; 84165; 84300; 84443; 84484; 85025; 87635; 87804; 93005; 93452; 94640; 94664; 96372; 96375; 99284; C1769; C1887; C1894; J1644; J1756; J1815; J1940; J2001; J2250; J3010; J3475; J3480; J3490; J7030; J7611; Q0163; Q9967

== ENCOUNTER 2019-07-26 10:36 | Emergency (ER) | payer MEDICARE, MEDICAID, SELFPAY ==
[2019-07-26 10:41] VITALS: BMI 30.5
--- NOTE | 2019-07-26 10:54 | XR_ITS ---
WS: [id number] PORTABLE CHEST HISTORY: angina COMPARISON: 07/11/2019 Hyperinflated lungs. Focal subsegmental opacification at the RIGHT lung base. Additional mild interstitial thickening at t he lingula similar to the prior study. No pleural effusion or pneumothorax. Cardiac size: Normal. Mediastinum/Aorta: Mild atherosclerosis aorta. AC joint arthritis. XR/XR chest 1V portable [id number] IMPRESSION: 1. New subsegmental opacification at the RIGHT lung base is probably an area o f atelectasis. 2. Mild thickening at the lingula is unchanged since the prior study.
--- NOTE | 2019-07-26 10:54 | ECG_ITS ---
Measurements Intervals [place] Rate: 76 P: 43 TN: 147 QRS: 0 QRSD: 96 T: 73 QT: 401 QTc: 454 SINUS RHYTHM NONSPECIFIC T-WAVE ABNORMALITY Compared to ECG 07/11/2019 17:00:55 T-wave abnormality now present Electronically Signed On 07-26-2019 13:37:46 CDT by Shawna Turner M.D. [email or web address]
--- NOTE | 2019-07-26 11:01 | ED_ITS ---
HPI - Chest Pain General: Chief Complaint: Chest Pain Stated Complaint: CHEST PAIN Time Seen by Provider: 07/26/19 10:39 Review of Systems General: Reports: 10 or more systems reviewed and unremarkable except in HPI and below Card: Reports: chest pain [facility] ED PFSH: Medical History Acute respiratory failure with hypoxia -Required intubation following CODE BLUE, extubated on 05/14 -on diuresis due to anasarca; switch to oral diuretics -Has Mann catheter in place, continue to monitor urine output; removal today -off antibiotic treatment; had been on vancomycin and Levaquin; has noted allergy to Zosyn -CXR (05/18) shows resolution of pneumonia -Echo: EF=64%, no RWMA, G1DD, mild MR, trace AR -afebrile x >24 hrs, vital signs otherwise stable; continue to monitor -continue to monitor renal function, lytes with diuresis -continue to monitor Is & Os, daily weights -telemetry monitoring -sputum cx: mixed nicho; gram stain negative, noted WBCs -blood cx: prelim negative -continue to monitor respiratory status closely -supplemental oxygen as needed -Neb treatments as needed -noted D-dimer elevation, negative PE, negative DVT -very low suspicion for possible aspiration but if continued fever and/or hemodynamic instability may need to include anaerobic coverage; not needed CAD (coronary artery disease) Coronaries appeared normal on angiogram Hypertension Hypothyroidism Well-controlled Lymphedema Macrocytic anemia -has chronic macrocytic anemia; has evidence of vitamin B12 and folate deficiency -replacing vitamin B12, folate -also noted evidence of low iron though ferritin is normal -had reported black stools -baseline Hg is around 11; continue to monitor H/H closely; has been gradually trending down -on PPI Non-insulin dependent type 2 diabetes mellitus NSTEMI (non-ST elevated myocardial infarction) -Noted to have significantly elevated troponins with a delta over 90 which may have precipitated code -Given current need for continued ventilator support, will continue medical management, was already started on a heparin drip, statin, full dose aspirin and Plavix; d/c heparin drip -No acute ischemic changes noted on EKG -Echo done previously as noted below with no noted regional wall motion abnormalities -Continue telemetry monitoring -Cardiology consult by Dr. Turner appreciated; will need outpatient stress testing Surgical History H/O thyroidectomy History of ankle surgery Family History Other Breast cancer CAD (coronary artery disease) Diabetes Hypertension Social History Smoking and tobacco status: never smoked Alcohol intake: never Lives independently: Yes Household members: none Housing: Apartment Current occupational status: disabled History of recent travel: No Current gender identity: Female Physical Exam Const: COMMON NORMALS: no apparent distress, oriented x3, alert and well nourished Neck/C-Spine: COMMON NORMALS: no JVD Resp: COMMON NORMALS: normal respiratory effort, no retractions and no use of accessory muscles AUSCULTATION: rales Cardio: COMMON NORMALS: no JVD Extremity: GENERAL: Yes edema Neuro: COMMON NORMALS: oriented x3 SENSORIUM/ORIENTATION: Yes alert Course Vital Signs: Vital signs: Vital Signs Pulse Rate 77 07/26/19 12:24 Respiratory Rate 20 H 07/26/19 12:24 Blood Pressure 114/55 07/26/19 12:24 Pulse Oximetry 100 07/26/19 12:24 MDM - Chest Pain Lab Data: Labs: Lab Results 07/26/19 07/26/19 07/26/19 Range/Units 11:25 11:25 11:25 WBC 7.9 (4.0-10.0) 10^3/ uL RBC 3.88 L (4.1-5.3) 10^6/u L Hgb 10.6 L (11.5-15.3) g/dL Hct 33.1 L (37.0-47.0) % MCV 85.3 (81-99) fL MCH 27.3 L (28.0-34.0) pg MCHC 32.0 (30.0-36.0) g/dL RDW 15.9 H (12.1-15.1) % Plt Count 406 H (130-400) 10^3/c mm MPV 9.3 (7.4-10.4) fL Neut % (Auto) 87.1 % Lymph % (Auto) 5.3 % [place] % (Auto) 6.3 % Eos % (Auto) 0.5 % Baso % (Auto) 0.3 % Neut # (Auto) 6.9 (1.8-7.7) 10^3/u L Lymph # (Auto) 0.4 L (0.8-4.8) 10^3/u L [place] # (Auto) 0.5 (0.2-0.9) 10^3/u L Eos # (Auto) 0.0 (0.0-0.8) 10^3/u L Baso # (Auto) 0.0 (0.0-0.1) 10^3/u L Nucleated RBC % (a uto) 0 % Nucleated RBCs # 0.0 /100WBC PT 21.90 H (10.5-13.3) SECO NDS INR 1.89 H (0.8-1.2) Sodium 129 L (136-145) mmol/L Potassium 3.1 L (3.5-5.1) mmol/L Chloride 84 L (98-107) mmol/L Carbon Dioxide 27 (22-29) mmol/L Anion Gap 21.1 H (5-19) BUN 12 (8-23) mg/dL Creatinine 1.1 H (0.5-0.9) mg/dL Glucose 138 H (65-115) mg/dL Calculated Osmolal ity 266 L (285-295) mOsm/k g Calcium 8.1 L (8.5-10.5) mg/dL Total Bilirubin 0.6 (0.15-1.2) mg/dL AST 12 (0-32) U/L ALT < 5 (0-33) U/L Alkaline Phosphata se 80 (35-105) IU/L Troponin T Baselin e (0-10) ng/mL Troponin T 120 Min natali[place] (0-10) ng/mL Delta Troponin T (0-10) ABS# NT-Pro-B Natriuret Pep 564 H (0-450) pg/mL Total Protein 7.1 (6.6-8.7) g/dL Albumin 3.5 (3.5-5.2) g/dL Globulin 3.6 (1.3-4.6) g/dL 07/26/19 07/26/19 Range/Units 11:25 13:24 WBC (4.0-10.0) 10^3/ uL RBC (4.1-5.3) 10^6/u L Hgb (11.5-15.3) g/dL Hct (37.0-47.0) % MCV (81-99) fL MCH (28.0-34.0) pg MCHC (30.0-36.0) g/dL RDW (12.1-15.1) % Plt Count (130-400) 10^3/c mm MPV (7.4-10.4) fL Neut % (Auto) % Lymph % (Auto) % [place] % (Auto) % Eos % (Auto) % Baso % (Auto) % Neut # (Auto) (1.8-7.7) 10^3/u L Lymph # (Auto) (0.8-4.8) 10^3/u L [place] # (Auto) (0.2-0.9) 10^3/u L Eos # (Auto) (0.0-0.8) 10^3/u L Baso # (Auto) (0.0-0.1) 10^3/u L Nucleated RBC % (a uto) % Nucleated RBCs # /100WBC PT (10.5-13.3) SECO NDS INR (0.8-1.2) Sodium (136-145) mmol/L Potassium (3.5-5.1) mmol/L Chloride (98-107) mmol/L Carbon Dioxide (22-29) mmol/L Anion Gap (5-19) BUN (8-23) mg/dL Creatinine (0.5-0.9) mg/dL Glucose (65-115) mg/dL Calculated Osmolal ity (285-295) mOsm/k g Calcium (8.5-10.5) mg/dL Total Bilirubin (0.15-1.2) mg/dL AST (0-32) U/L ALT (0-33) U/L Alkaline Phosphata se (35-105) IU/L Troponin T Baselin e 57 H (0-10) ng/mL Troponin T 120 Min nataliia 52.78 H (0-10) ng/mL Delta Troponin T -4.22 L (0-10) ABS# NT-Pro-B Natriuret Pep (0-450) pg/mL Total Protein (6.6-8.7) g/dL Albumin (3.5-5.2) g/dL Globulin (1.3-4.6) g/dL Discharge Plan Discharge Patient Disposition: Home, Self-Care Clinical Impression: Hyponatremia Chest pain Qualifiers: Chest pain type: unspecified Qualified Code(s): R07.9 - Chest pain, unspecified Condition: Stable Prescriptions: No Action potassium chloride 20 mEq tablet extended release 10 meq PO BID RF: 0 cyanocobalamin (vitamin B-12) [B-12 DOTS] 500 mcg tablet 1,000 mcg PO DAILY RF: 0 metoprolol tartrate 25 mg tablet 25 mg PO BID RF: 0 folic acid 1 mg tablet 1 mg PO DAILY RF: 0 albuterol sulfate 2.5 mg/0.5 mL solution for nebulization 2.5 mg INHALATION Q6H PRN (Reason: unknown) RF: 0 Anoro Ellipta 62.5-25 mcg/actuation blister with device 1 inh INHALATION DAILY RF: 0 albuterol sulfate [Ventolin HFA] 90 mcg/actuation HFA aerosol inhaler 2 puff INHALATION Q6H PRN (Reason: Shortness Of Breath) RF: 0 Eliquis 5 mg tablet 5 mg PO BID Qty: 180 RF: 3 magnesium oxide 400 mg magnesium capsule 400 mg PO BID Qty: 60 RF: 0 acetaminophen 325 mg Tablet 650 mg PO Q6H PRN (Reason: Mild/Mod Pain Or Temp >/= 101) Qty: 30 RF: 0 levothyroxine 175 mcg Tablet 175 mcg PO DAILY 30 Days Qty: 30 RF: 0 Januvia 100 mg PO DAILY 30 Days Qty: 30 RF: 0 fenofibrate 48 mg PO DAILY 30 Days Qty: 30 RF: 0 omeprazole 40 mg PO DAILY 30 Days Qty: 30 RF: 0 calcium carbonate 390 mg calcium (1,000 mg) tablet 390 mg PO TID Qty: 90 RF: 0 nitroglycerin 0.4 mg tablet, sublingual 0.4 mg SUBLINGUAL Q5M PRN (Reason: Chest Pain) RF: 0 simvastatin 40 mg Tablet 40 mg PO DAILY RF: 0 Myrbetriq 25 mg tablet extended release 24 hr 25 mg PO DAILY RF: 0 polyethylene glycol 3350 [Miralax] 17 gram/dose Powder 17 g PO DAILY PRN (Reason: Constipation) RF: 0 furosemide [Lasix] 80 mg tablet 80 mg PO BID Qty: 60 RF: 0 Referrals: Viktor Baker MD [Primary Care Provider] - Coding Level of Care Code ED Street Contractor for Chg Fwd Exam Detailed
[2019-07-26 11:38] LABS: Basophils % 0.3 %; Eosinophils % 0.5 %; Hematocrit 33.1 % (37.0-47.0); Hemoglobin 10.6 g/dL (11.5-15.3); Lymphocytes # 0.4 10^3/uL (0.8-4.8); Lymphocytes % 5.3 %; Mean Corpuscular Hemoglobin 27.3 pg (28.0-34.0); Mean Corpuscular Volume 85.3 fL (81-99); Mean Platelet Volume 9.3 fL (7.4-10.4); Monocytes # 0.5 10^3/uL (0.2-0.9); Monocytes % 6.3 %; Neutrophils # 6.9 10^3/uL (1.8-7.7); Neutrophils % 87.1 %; Nucleated Red Blood Cells % 0 %; Platelet Count 406 10^3/cmm (130-400); Red Blood Count 3.88 10^6/uL (4.1-5.3); Red Cell Distribution Width 15.9 % (12.1-15.1); White Blood Count 7.9 10^3/uL (4.0-10.0)
[2019-07-26 11:59] LABS: INR 1.89 (0.8-1.2)
[2019-07-26 12:09] LABS: Troponin(5th) Baseline 57 ng/mL (0-10)
[2019-07-26 12:16] LABS: Alanine Aminotransferase < 5 U/L (0-33); Albumin Level 3.5 g/dL (3.5-5.2); Alkaline Phosphatase 80 IU/L (35-105); Anion Gap 21.1 (5-19); Aspartate Amino Transferase 12 U/L (0-32); Blood Urea Nitrogen 12 mg/dL (8-23); Calcium 8.1 mg/dL (8.5-10.5); Carbon Dioxide 27 mmol/L (22-29); Chloride 84 mmol/L (98-107); Globulin 3.6 g/dL (1.3-4.6); Glucose 138 mg/dL (65-115); NT Pro B Type Natriuretic Pept 564 pg/mL (0-450); Osmolality Calculated 266 mOsm/kg (285-295); Potassium 3.1 mmol/L (3.5-5.1); Sodium 129 mmol/L (136-145); Total Bilirubin 0.6 mg/dL (0.15-1.2); Total Protein 7.1 g/dL (6.6-8.7)
[2019-07-26 12:24] VITALS: BP 114/55; PULSE 77; RESP 20; O2SAT 100
--- NOTE | 2019-07-26 12:33 | PC.NURSE ---
Pt sitting up on the side of the bed with legs in a chair doing a crossword puzzle, no chest pain or needs at this time.
--- NOTE | 2019-07-26 12:54 | ECG_ITS ---
Measurements Intervals [place] Rate: 69 P: 89 [place]: 140 QRS: 16 QRSD: 97 T: 80 QT: 407 QTc: 436 SINUS RHYTHM WITH OCCASIONAL SUPRAVENTRICULAR PREMATURE COMPLEXES Compared to ECG 07/11/2019 17:00:55 No significant changes Electronically Signed On 07-26-2019 13:38:01 CDT by Shawna Turner M.D. [id number]
[2019-07-26 13:42] LABS: Troponin 5 2HR 52.78 ng/mL (0-10)
[2019-07-26 14:42] VITALS: BP 103/67; PULSE 70; RESP 17; O2SAT 97
== END 2019-07-26 14:31 | disposition home or self-care (01) ==
PROVIDERS: Emergency Provider Family Medicine; Family Provider Family Medicine; PCP Family Medicine
DX: R07.9 Chest pain, unspecified (principal); E87.1 Hypo-osmolality and hyponatremia; Z79.01 Long term (current) use of anticoagulants; I25.10 Atherosclerotic heart disease of native coronary artery without angina pectoris; I10 Essential (primary) hypertension; E03.9 Hypothyroidism, unspecified; E11.9 Type 2 diabetes mellitus without complications; I25.2 Old myocardial infarction
CPT/HCPCS: 12345; 36415; 71045; 80053; 83880; 84484; 85025; 85610; 93005; 99282; 99283

== ENCOUNTER 2019-07-30 06:19 | Emergency (ER) | payer MEDICARE, MEDICAID, SELFPAY ==
[2019-07-30 06:20] VITALS: BP 114/62; PULSE 82; RESP 16; TEMP 36.7; O2SAT 100; BMI 30.5
--- NOTE | 2019-07-30 06:49 | ED_ITS ---
HPI - General Adult General: Chief complaint: General Medical Stated complaint: FEELS WEIRD Time Seen by Provider: 07/30/19 06:27 History of Present Illness: HPI narrative: 74-year-old male presents emergency room via EMS stating she just does not feel good . She cannot really is particularly tell me anything beyond that. States she just feels weird. She denies dyspnea or fever denies abdominal pain denies chest pain denies urinary tract symptoms. Denies any lightheadedness or dizziness denies any speech or swallowing difficulty denies any weakness on one side or another. She states she felt pulled to the left side but never could really identify any weakness and does not have any now. Onset (ago): hour(s) Severity: mild Relieving factors: none Exacerbating factors: none Associated symptoms: Reports no associated symptoms; Deny chest pain, confusion, cough, diaphoresis, decreased appetite, dyspnea, fevers/chills, headache(s), malaise, nausea, rash, palpitations, seizures, short of breath, syncope, vomiting or weakness Treatments prior to arrival: none Review of Systems Const: Denies: malaise or diaphoresis ENMT: Denies: throat pain, ear pain, nasal discharge or nasal congestion Card: Denies: chest pain, palpitations or syncope Resp: Denies: shortness of breath GI: Denies: nausea or vomiting : Denies: flank pain, difficulty urinating, painful urination, urinary frequency or urinary urgency Skin/Breast: Denies: rash Neuro: Denies: headache or confusion PFS ED PFSH: Medical History Acute respiratory failure with hypoxia -Required intubation following CODE BLUE, extubated on 05/14 -on diuresis due to anasarca; switch to oral diuretics -Has Mann catheter in place, continue to monitor urine output; removal today -off antibiotic treatment; had been on vancomycin and Levaquin; has noted allergy to Zosyn -CXR (05/18) shows resolution of pneumonia -Echo: EF=64%, no RWMA, G1DD, mild MR, trace AR -afebrile x >24 hrs, vital signs otherwise stable; continue to monitor -continue to monitor renal function, lytes with diuresis -continue to monitor Is & Os, daily weights -telemetry monitoring -sputum cx: mixed nicho; gram stain negative, noted WBCs -blood cx: prelim negative -continue to monitor respiratory status closely -supplemental oxygen as needed -Neb treatments as needed -noted D-dimer elevation, negative PE, negative DVT -very low suspicion for possible aspiration but if continued fever and/or hemodynamic instability may need to include anaerobic coverage; not needed CAD (coronary artery disease) Coronaries appeared normal on angiogram Hypertension Hypothyroidism Well-controlled Lymphedema Macrocytic anemia -has chronic macrocytic anemia; has evidence of vitamin B12 and folate deficiency -replacing vitamin B12, folate -also noted evidence of low iron though ferritin is normal -had reported black stools -baseline Hg is around 11; continue to monitor H/H closely; has been gradually trending down -on PPI Non-insulin dependent type 2 diabetes mellitus NSTEMI (non-ST elevated myocardial infarction) -Noted to have significantly elevated troponins with a delta over 90 which may have precipitated code -Given current need for continued ventilator support, will continue medical management, was already started on a heparin drip, statin, full dose aspirin and Plavix; d/c heparin drip -No acute ischemic changes noted on EKG -Echo done previously as noted below with no noted regional wall motion abnormalities -Continue telemetry monitoring -Cardiology consult by Dr. Turner appreciated; will need outpatient stress testing Surgical History H/O thyroidectomy History of ankle surgery Family History Other Breast cancer CAD (coronary artery disease) Diabetes Hypertension Social History Smoking and tobacco status: never smoked Alcohol intake: never Lives independently: Yes Household members: none Housing: Apartment Current occupational status: disabled History of recent travel: No Current gender identity: Female Physical Exam Const: COMMON NORMALS: no apparent distress GENERAL APPEARANCE: cooperative and comfortable ORIENTATION/CONSCIOUSNESS: Yes awake, Yes oriented to person, Yes oriented to place and Yes oriented to time HENMT: COMMON NORMALS: normocephalic, head/scalp atraumatic, hearing grossly normal bilaterally, external ears normal, EAC's normal, TM's normal bilaterally, nasal mucous membranes and turbinates normal, moist oral mucous membranes and oropharynx normal HEAD & SCALP: normocephalic and atraumatic NOSE: nasal mucous membranes and turbinates normal EXTERNAL EAR: Yes external ears normal EXTERNAL AUDITORY CANAL: EAC's normal TYMPANIC MEMBRANE: TM's normal bilaterally Eye: COMMON NORMALS: PERRL, EOMs intact bilaterally, conjunctivae normal and no scleral icterus CONJUNCTIVA: Yes conjunctivae normal PUPIL: Yes PERRL Neck/C-Spine: COMMON NORMALS: full ROM, no lymphadenopathy, supple and no JVD Lymph: LYMPHATIC: no lymphadenopathy noted and no lymphedema noted Resp: COMMON NORMALS: normal respiratory effort, no retractions, no use of accessory muscles and clear to auscultation bilaterally AUSCULTATION: clear to auscultation bilaterally Cardio: COMMON NORMALS: no JVD, regular rate, regular rhythm and no murmurs RATE: regular rate RHYTHM: regular rhythm GI: COMMON NORMALS: soft to palpation and no hepatosplenomegaly AUSCULTATION: Yes normoactive bowel sounds PALPATION: Yes soft, No tender, No guarding and Yes no hepatosplenomegaly Extremity: COMMON NORMALS: normal to inspection, normal capillary refill, no clubbing, cyanosis or edema, no calf tenderness and no pedal edema Neuro: SENSORIUM/ORIENTATION: Yes oriented to person, Yes oriented to place and Yes oriented to time Skin: COMMON NORMALS: no rashes or lesions noted GENERAL SKIN EXAM: no rashes or lesions noted Course Vital Signs: Vital signs: Vital Signs Temperature 98.0 F 07/30/19 06:20 Pulse Rate 87 07/30/19 10:20 Respiratory Rate 18 07/30/19 10:20 Blood Pressure 114/62 07/30/19 06:20 Pulse Oximetry 96 07/30/19 10:20 [facility] - General Adult Differential Diagnosis: Differential Diagnosis: Patient states she is feeling much better work-up was negative with the exception of mild hyponatremia she generally does run a little bit low but today was lower than normal did give her infuse some IV normal saline she is feeling better after that she would prefer to go home I think that is reasonable. I asked her to follow-up with Dr. Baker next week for recheck of her sodium if she has any worsening or changes symptoms she should return immediately. Lab Data: Labs: Lab Results 07/30/19 07/30/19 07/30/19 Range/Units 06:45 06:45 06:45 WBC 6.4 (4.0-10.0) 10^3/ uL RBC 3.65 L (4.1-5.3) 10^6/u L Hgb 10.0 L (11.5-15.3) g/dL Hct 31.5 L (37.0-47.0) % MCV 86.3 (81-99) fL MCH 27.4 L (28.0-34.0) pg MCHC 31.7 (30.0-36.0) g/dL RDW 15.9 H (12.1-15.1) % Plt Count 355 (130-400) 10^3/c mm MPV 9.5 (7.4-10.4) fL Neut % (Auto) 85.0 % Lymph % (Auto) 6.2 % [place] % (Auto) 7.2 % Eos % (Auto) 0.6 % Baso % (Auto) 0.5 % Neut # (Auto) 5.5 (1.8-7.7) 10^3/u L Lymph # (Auto) 0.4 L (0.8-4.8) 10^3/u L [place] # (Auto) 0.5 (0.2-0.9) 10^3/u L Eos # (Auto) 0.0 (0.0-0.8) 10^3/u L Baso # (Auto) 0.0 (0.0-0.1) 10^3/u L Nucleated RBC % (a uto) 0 % Nucleated RBCs # 0.0 /100WBC Sodium 125 L (136-145) mmol/L Potassium 3.5 (3.5-5.1) mmol/L Chloride 84 L (98-107) mmol/L Carbon Dioxide 26 (22-29) mmol/L Anion Gap 18.5 (5-19) BUN 17 (8-23) mg/dL Creatinine 1.5 H (0.5-0.9) mg/dL Glucose 165 H (65-115) mg/dL Calculated Osmolal ity 260 L (285-295) mOsm/k g Calcium 8.2 L (8.5-10.5) mg/dL Magnesium (1.7-2.3) mg/dL Total Bilirubin 0.6 (0.15-1.2) mg/dL AST 11 (0-32) U/L ALT < 5 (0-33) U/L Alkaline Phosphata se 72 (35-105) IU/L Troponin T Baselin e 61 H (0-10) ng/mL Troponin T 120 Min [place] (0-10) ng/mL Delta Troponin T (0-10) ABS# Total Protein 6.4 L (6.6-8.7) g/dL Albumin 3.1 L (3.5-5.2) g/dL Globulin 3.3 (1.3-4.6) g/dL Lipase 40 (13-60) U/L Urine Color (Yellow) Urine Appearance (CLEAR) Urine pH (5-7) Ur Specific Gravit y (1.005-1.030) Urine Protein (Negative) Urine Glucose (UA) (Normal) Urine Ketones (Negative) Urine Blood (Negative) Urine Nitrate (Negative) Urine Bilirubin (NEGATIVE) Urine Urobilinogen (Negative) mg/dL Ur Leukocyte Lisa ase (Negative) 07/30/19 07/30/19 07/30/19 Range/Units 07:13 09:20 09:20 WBC (4.0-10.0) 10^3/ uL RBC (4.1-5.3) 10^6/u L Hgb (11.5-15.3) g/dL Hct (37.0-47.0) % MCV (81-99) fL MCH (28.0-34.0) pg MCHC (30.0-36.0) g/dL RDW (12.1-15.1) % Plt Count (130-400) 10^3/c mm MPV (7.4-10.4) fL Neut % (Auto) % Lymph % (Auto) % [place] % (Auto) % Eos % (Auto) % Baso % (Auto) % Neut # (Auto) (1.8-7.7) 10^3/u L Lymph # (Auto) (0.8-4.8) 10^3/u L [place] # (Auto) (0.2-0.9) 10^3/u L Eos # (Auto) (0.0-0.8) 10^3/u L Baso # (Auto) (0.0-0.1) 10^3/u L Nucleated RBC % (a uto) % Nucleated RBCs # /100WBC Sodium (136-145) mmol/L Potassium (3.5-5.1) mmol/L Chloride (98-107) mmol/L Carbon Dioxide (22-29) mmol/L Anion Gap (5-19) BUN (8-23) mg/dL Creatinine (0.5-0.9) mg/dL Glucose (65-115) mg/dL Calculated Osmolal ity (285-295) mOsm/k g Calcium (8.5-10.5) mg/dL Magnesium 2.0 (1.7-2.3) mg/dL Total Bilirubin (0.15-1.2) mg/dL AST (0-32) U/L ALT (0-33) U/L Alkaline Phosphata se (35-105) IU/L Troponin T Baselin e (0-10) ng/mL Troponin T 120 Min [place] 59.47 H (0-10) ng/mL Delta Troponin T -1.53 L (0-10) ABS# Total Protein (6.6-8.7) g/dL Albumin (3.5-5.2) g/dL Globulin (1.3-4.6) g/dL Lipase (13-60) U/L Urine Color Yellow (Yellow) Urine Appearance Clear (CLEAR) Urine pH 5 (5-7) Ur Specific Gravit y 1.015 (1.005-1.030) Urine Protein Neg (Negative) Urine Glucose (UA) Norm (Normal) Urine Ketones Negative (Negative) Urine Blood Neg (Negative) Urine Nitrate Negative (Negative) Urine Bilirubin Neg (NEGATIVE) Urine Urobilinogen Norm (Negative) mg/dL Ur Leukocyte Lisa ase Negative (Negative) Discharge Plan Discharge Patient Disposition: Home, Self-Care Clinical Impression: Chronic hyponatremia Condition: Stable Prescriptions: No Action potassium chloride 20 mEq tablet extended release 10 meq PO BID RF: 0 cyanocobalamin (vitamin B-12) [B-12 DOTS] 500 mcg tablet 1,000 mcg PO DAILY RF: 0 metoprolol tartrate 25 mg tablet 25 mg PO BID RF: 0 folic acid 1 mg tablet 1 mg PO DAILY RF: 0 albuterol sulfate 2.5 mg/0.5 mL solution for nebulization 2.5 mg INHALATION Q6H PRN (Reason: unknown) RF: 0 Anoro Ellipta 62.5-25 mcg/actuation blister with device 1 inh INHALATION DAILY RF: 0 albuterol sulfate [Ventolin HFA] 90 mcg/actuation HFA aerosol inhaler 2 puff INHALATION Q6H PRN (Reason: Shortness Of Breath) RF: 0 Eliquis 5 mg tablet 5 mg PO BID Qty: 180 RF: 3 magnesium oxide 400 mg magnesium capsule 400 mg PO BID Qty: 60 RF: 0 acetaminophen 325 mg Tablet 650 mg PO Q6H PRN (Reason: Mild/Mod Pain Or Temp >/= 101) Qty: 30 RF: 0 levothyroxine 175 mcg Tablet 175 mcg PO DAILY 30 Days Qty: 30 RF: 0 Januvia 100 mg PO DAILY 30 Days Qty: 30 RF: 0 fenofibrate 48 mg PO DAILY 30 Days Qty: 30 RF: 0 omeprazole 40 mg PO DAILY 30 Days Qty: 30 RF: 0 calcium carbonate 390 mg calcium (1,000 mg) tablet 390 mg PO TID Qty: 90 RF: 0 nitroglycerin 0.4 mg tablet, sublingual 0.4 mg SUBLINGUAL Q5M PRN (Reason: Chest Pain) RF: 0 simvastatin 40 mg Tablet 40 mg PO DAILY RF: 0 Myrbetriq 25 mg tablet extended release 24 hr 25 mg PO DAILY RF: 0 polyethylene glycol 3350 [Miralax] 17 gram/dose Powder 17 g PO DAILY PRN (Reason: Constipation) RF: 0 furosemide [Lasix] 80 mg tablet 80 mg PO BID Qty: 60 RF: 0 Discharge Orders: Discharge Order (Routine); Ordered 07/30/19 Ordered By: Ramsey Jansen Referrals: Viktor Baker MD [Primary Care Provider] - Discharge Diet: Usual diet Discharge Activity: Resume usual activity Activity Restrictions/Additional Instructions: Follow-up with Dr. Baker next week to have your sodium rechecked Discharge Date/Time: 07/30/19 10:21 Coding Level of Care Code ED Operator Receptionist for Chg Fwd Exam Comprehensive
[2019-07-30 07:18] VITALS: RESP 16
[2019-07-30 07:18] LABS: Add Urine Microscopic? NO
[2019-07-30 07:30] LABS: Basophils % 0.5 %; Eosinophils % 0.6 %; Hematocrit 31.5 % (37.0-47.0); Lymphocytes # 0.4 10^3/uL (0.8-4.8); Lymphocytes % 6.2 %; Mean Corpuscular HGB Conc 31.7 g/dL (30.0-36.0); Mean Corpuscular Hemoglobin 27.4 pg (28.0-34.0); Mean Corpuscular Volume 86.3 fL (81-99); Mean Platelet Volume 9.5 fL (7.4-10.4); Monocytes # 0.5 10^3/uL (0.2-0.9); Monocytes % 7.2 %; Neutrophils # 5.5 10^3/uL (1.8-7.7); Nucleated Red Blood Cells % 0 %; Platelet Count 355 10^3/cmm (130-400); Red Blood Count 3.65 10^6/uL (4.1-5.3); Red Cell Distribution Width 15.9 % (12.1-15.1); White Blood Count 6.4 10^3/uL (4.0-10.0)
[2019-07-30 07:31] LABS: Urine Appearance Clear (CLEAR); Urine Color Yellow (Yellow); pH Urine 5 (5-7)
[2019-07-30 07:32] LABS: Bilirubin Urine Neg (NEGATIVE); Blood Urine Neg (Negative); Glucose Urine UA Norm (Normal); Ketones Urine Negative (Negative); Leukocyte Esterase Urine Negative (Negative); Nitrate Urine Negative (Negative); Protein Urine Neg (Negative); Specific Gravity, Urine 1.015 (1.005-1.030); Urobilinogen Urine Norm (Negative)
[2019-07-30 07:40] LABS: Alanine Aminotransferase < 5 U/L (0-33); Albumin Level 3.1 g/dL (3.5-5.2); Alkaline Phosphatase 72 IU/L (35-105); Anion Gap 18.5 (5-19); Aspartate Amino Transferase 11 U/L (0-32); Blood Urea Nitrogen 17 mg/dL (8-23); Calcium 8.2 mg/dL (8.5-10.5); Carbon Dioxide 26 mmol/L (22-29); Chloride 84 mmol/L (98-107); Globulin 3.3 g/dL (1.3-4.6); Glucose 165 mg/dL (65-115); Lipase 40 U/L (13-60); Osmolality Calculated 260 mOsm/kg (285-295); Potassium 3.5 mmol/L (3.5-5.1); Sodium 125 mmol/L (136-145); Total Bilirubin 0.6 mg/dL (0.15-1.2); Total Protein 6.4 g/dL (6.6-8.7)
[2019-07-30 07:42] LABS: Troponin(5th) Baseline 61 ng/mL (0-10)
[2019-07-30] MEDS: sodium chloride 0.9% 1,000 ML 999 ML IV (08:20)
--- NOTE | 2019-07-30 09:33 | PC.NURSE ---
pt iv that was started before my shift infiltrated. no redness to area, only swelling. no numbeness or tingling according to pt. distal pulses intact. applied warm compress to affected area. pt not in pain at this time.
[2019-07-30 09:47] LABS: Troponin 5 2HR 59.47 ng/mL (0-10)
[2019-07-30 09:51] LABS: Troponin 5 2HR Delta -1.53 ABS# (0-10)
[2019-07-30 10:20] VITALS: PULSE 87; RESP 18; O2SAT 96
== END 2019-07-30 10:21 | disposition home or self-care (01) ==
PROVIDERS: Emergency Provider Family Medicine; Family Provider Family Medicine; PCP Family Medicine
DX: E87.1 Hypo-osmolality and hyponatremia (principal); Z79.01 Long term (current) use of anticoagulants; I25.10 Atherosclerotic heart disease of native coronary artery without angina pectoris; I10 Essential (primary) hypertension; E11.9 Type 2 diabetes mellitus without complications; I25.2 Old myocardial infarction; E03.9 Hypothyroidism, unspecified
CPT/HCPCS: 12345; 80053; 81003; 83690; 83735; 84484; 85025; 96360; 99283; A9270; J7030

== ENCOUNTER 2019-08-02 14:12 | Observation (INO) | payer MEDICARE, MEDICAID, SELFPAY ==
[2019-08-02 14:16] VITALS: BP 104/50; PULSE 72; RESP 16; TEMP 36.5; O2SAT 97; BMI 30.5
--- NOTE | 2019-08-02 14:21 | CT_ITS ---
WS: [id number] CT HEAD NONCONTRAST HISTORY: fall TECHNIQUE: Contiguous axial imaging performed through the brain in 2.5 mm imaging. Bone and soft tiss ue windows. Sagittal and coronal reformats reviewed. All CT scans at [facility] use at ast one of these dose optimization techniques: automated exposure control; mA and/or kV adjustment pe r patient size (includes targeted exams where dose is matched to clinical indication); or iterative r econstruction. DLP: 863.9 mGy.cm COMPARISON: 10/08/2018 No acute intracranial hemorrhage, midline shift or mass effect. Mild atrophy and mild chronic microvascular ischemic disease. No prior infarcts. Ventricles: Normal size with no hydrocephalus. No inferior displacement of the cerebellar tonsils. Clivus and pituitary gland are negative. Paranasal sinuses: As visualized are clear. Mastoid air cells: Well pneumatized. Calvarium and scalp: Skull is intact with no soft tissue edema or swelling. CT/CT head wo con* [id number] IMPRESSION: 1. No acute intracranial hemorrhage or edema. 2. Mild atrophy and mild chronic ischemic disease.
--- NOTE | 2019-08-02 14:21 | XR_ITS ---
WS: [id number] XR chest 1V portable [id number] REASON FOR EXAM: fall FINDINGS: The heart and mediastinal interfaces were normal. There is mild hyperaeration changes suggesting emphysema. No definite rib fractures are noted. The clavicles and shoulders appear to be normal. No lung contusion changes. XR/XR chest 1V portable [id number] IMPRESSION: Mild hyper aerated lung suggesting emphysema. Multiple viridiana are seen along the superior mediastinum.
--- NOTE | 2019-08-02 14:33 | ED_ITS ---
HPI - Fall General: Chief Complaint: Fall Stated Complaint: WEAKNESS, VERTIGO, FALL Time Seen by Provider: 08/02/19 14:17 History of Present Illness: HPI Narrative: Patient states she was sitting on the commode and slid forward off onto the floor. She states that she was unable to get up on her own power. Patient was on the floor for approximately 15 minutes. Patient denies any injury other than a hematoma to her left elbow. complaint: fall Onset (ago): minute(s) Fall from: chair Fall witnessed: no Place fall occurred: home Loss of consciousness: None Prolonged down time: minute(s) (15 mins) Review of Systems General: Reports: 10 or more systems reviewed and unremarkable except in HPI and below PFSH ED PFSH: Medical History Acute respiratory failure with hypoxia -Required intubation following CODE BLUE, extubated on 05/14 -on diuresis due to anasarca; switch to oral diuretics -Has Mann catheter in place, continue to monitor urine output; removal today -off antibiotic treatment; had been on vancomycin and Levaquin; has noted allergy to Zosyn -CXR (05/18) shows resolution of pneumonia -Echo: EF=64%, no RWMA, G1DD, mild MR, trace AR -afebrile x >24 hrs, vital signs otherwise stable; continue to monitor -continue to monitor renal function, lytes with diuresis -continue to monitor Is & Os, daily weights -telemetry monitoring -sputum cx: mixed nicho; gram stain negative, noted WBCs -blood cx: prelim negative -continue to monitor respiratory status closely -supplemental oxygen as needed -Neb treatments as needed -noted D-dimer elevation, negative PE, negative DVT -very low suspicion for possible aspiration but if continued fever and/or hemodynamic instability may need to include anaerobic coverage; not needed CAD (coronary artery disease) Coronaries appeared normal on angiogram Hypertension Hypothyroidism Well-controlled Lymphedema Macrocytic anemia -has chronic macrocytic anemia; has evidence of vitamin B12 and folate deficiency -replacing vitamin B12, folate -also noted evidence of low iron though ferritin is normal -had reported black stools -baseline Hg is around 11; continue to monitor H/H closely; has been gradually trending down -on PPI Non-insulin dependent type 2 diabetes mellitus NSTEMI (non-ST elevated myocardial infarction) -Noted to have significantly elevated troponins with a delta over 90 which may have precipitated code -Given current need for continued ventilator support, will continue medical management, was already started on a heparin drip, statin, full dose aspirin and Plavix; d/c heparin drip -No acute ischemic changes noted on EKG -Echo done previously as noted below with no noted regional wall motion abnormalities -Continue telemetry monitoring -Cardiology consult by Dr. Turner appreciated; will need outpatient stress testing Surgical History H/O thyroidectomy History of ankle surgery Family History Other Breast cancer CAD (coronary artery disease) Diabetes Hypertension Social History Smoking and tobacco status: never smoked Alcohol intake: never Lives independently: Yes Household members: none Housing: Apartment Current occupational status: disabled History of recent travel: No Current gender identity: Female Physical Exam HENMT: COMMON NORMALS: normocephalic and head/scalp atraumatic HEAD & SCALP: normocephalic and atraumatic Neck/C-Spine: COMMON NORMALS: full ROM, no lymphadenopathy, supple, no meningeal signs, no JVD and thyroid normal GENERAL: Yes normal visual inspection THYROID: thyroid normal CERVICAL SPINE: Yes cervical ROM normal and Yes normal cervical lordosis Resp: COMMON NORMALS: normal respiratory effort, no retractions, no use of accessory muscles and clear to auscultation bilaterally AUSCULTATION: clear to auscultation bilaterally Cardio: COMMON NORMALS: no JVD, regular rate and regular rhythm RATE: regular rate RHYTHM: regular rhythm GI: COMMON NORMALS: normal to inspection, nondistended, normoactive bowel sounds Extremity: COMMON NORMALS: normal to inspection, full ROM and normal capillary refill GENERAL: Yes edema Neuro: MENINGEAL SIGNS: Yes no meningeal signs Course Vital Signs: Vital signs: Vital Signs Temperature 97.7 F 08/02/19 14:16 Pulse Rate 72 08/02/19 14:16 Respiratory Rate 16 08/02/19 14:16 Blood Pressure 104/50 08/02/19 14:16 Pulse Oximetry 97 08/02/19 14:16 MDM - Fall Lab Data: Labs: Lab Results 08/02/19 08/02/19 08/02/19 Range/Units 14:29 14:48 14:48 WBC 9.4 (4.0-10.0) 10^3/ uL RBC 3.48 L (4.1-5.3) 10^6/u L Hgb 9.5 L (11.5-15.3) g/dL Hct 30.4 L (37.0-47.0) % MCV 87.4 (81-99) fL MCH 27.3 L (28.0-34.0) pg MCHC 31.3 (30.0-36.0) g/dL RDW 15.9 H (12.1-15.1) % Plt Count 307 (130-400) 10^3/c mm MPV 9.6 (7.4-10.4) fL Neut % (Auto) 91.4 % Lymph % (Auto) 3.7 % [place] % (Auto) 4.2 % Eos % (Auto) 0.3 % Baso % (Auto) 0.2 % Neut # (Auto) 8.6 H (1.8-7.7) 10^3/u L Lymph # (Auto) 0.4 L (0.8-4.8) 10^3/u L [place] # (Auto) 0.4 (0.2-0.9) 10^3/u L Eos # (Auto) 0.0 (0.0-0.8) 10^3/u L Baso # (Auto) 0.0 (0.0-0.1) 10^3/u L Nucleated RBC % (a uto) 0 % Nucleated RBCs # 0.0 /100WBC Sodium 124 L (136-145) mmol/L Potassium 3.8 (3.5-5.1) mmol/L Chloride 85 L (98-107) mmol/L Carbon Dioxide 23 (22-29) mmol/L Anion Gap 19.8 H (5-19) BUN 22 (8-23) mg/dL Creatinine 1.6 H (0.5-0.9) mg/dL Glucose 166 H (65-115) mg/dL Calculated Osmolal ity 258 L (285-295) mOsm/k g Lactate (0.5-2.2) mmol/L Calcium 7.7 L (8.5-10.5) mg/dL Total Bilirubin 0.4 (0.15-1.2) mg/dL AST 11 (0-32) U/L ALT 6 (0-33) U/L Alkaline Phosphata se 71 (35-105) IU/L Creatine Kinase 78 (26-192) U/L NT-Pro-B Natriuret Pep 1163 H (0-450) pg/mL Total Protein 6.2 L (6.6-8.7) g/dL Albumin 3.0 L (3.5-5.2) g/dL Globulin 3.2 (1.3-4.6) g/dL Lipase 49 (13-60) U/L Urine Color Yellow (Yellow) Urine Appearance Clear (CLEAR) Urine pH 5 (5-7) Ur Specific Gravit y 1.010 (1.005-1.030) Urine Protein Neg (Negative) Urine Glucose (UA) Norm (Normal) Urine Ketones Negative (Negative) Urine Blood Neg (Negative) Urine Nitrate Negative (Negative) Urine Bilirubin Neg (NEGATIVE) Urine Urobilinogen Norm (Negative) mg/dL Ur Leukocyte Lisa ase Negative (Negative) 08/02/19 Range/Units 14:48 WBC (4.0-10.0) 10^3/ uL RBC (4.1-5.3) 10^6/u L Hgb (11.5-15.3) g/dL Hct (37.0-47.0) % MCV (81-99) fL MCH (28.0-34.0) pg MCHC (30.0-36.0) g/dL RDW (12.1-15.1) % Plt Count (130-400) 10^3/c mm MPV (7.4-10.4) fL Neut % (Auto) % Lymph % (Auto) % [place] % (Auto) % Eos % (Auto) % Baso % (Auto) % Neut # (Auto) (1.8-7.7) 10^3/u L Lymph # (Auto) (0.8-4.8) 10^3/u L [place] # (Auto) (0.2-0.9) 10^3/u L Eos # (Auto) (0.0-0.8) 10^3/u L Baso # (Auto) (0.0-0.1) 10^3/u L Nucleated RBC % (a uto) % Nucleated RBCs # /100WBC Sodium (136-145) mmol/L Potassium (3.5-5.1) mmol/L Chloride (98-107) mmol/L Carbon Dioxide (22-29) mmol/L Anion Gap (5-19) BUN (8-23) mg/dL Creatinine (0.5-0.9) mg/dL Glucose (65-115) mg/dL Calculated Osmolal ity (285-295) mOsm/k g Lactate 4.1 H* (0.5-2.2) mmol/L Calcium (8.5-10.5) mg/dL Total Bilirubin (0.15-1.2) mg/dL AST (0-32) U/L ALT (0-33) U/L Alkaline Phosphata se (35-105) IU/L Creatine Kinase (26-192) U/L NT-Pro-B Natriuret Pep (0-450) pg/mL Total Protein (6.6-8.7) g/dL Albumin (3.5-5.2) g/dL Globulin (1.3-4.6) g/dL Lipase (13-60) U/L Urine Color (Yellow) Urine Appearance (CLEAR) Urine pH (5-7) Ur Specific Gravit y (1.005-1.030) Urine Protein (Negative) Urine Glucose (UA) (Normal) Urine Ketones (Negative) Urine Blood (Negative) Urine Nitrate (Negative) Urine Bilirubin (NEGATIVE) Urine Urobilinogen (Negative) mg/dL Ur Leukocyte Lisa ase (Negative) Discharge Plan Discharge Patient Disposition: Admitted As Inpatient Clinical Impression: Hyponatremia, Adult failure to thrive Congestive heart failure Qualifiers: Heart failure type: unspecified Heart failure chronicity: unspecified Qualified Code(s): I50.9 - Heart failure, unspecified Fall Qualifiers: Encounter type: initial encounter Qualified Code(s): W19.XXXA - Unspecified fall, initial encounter Condition: Fair Referrals: Viktor Baker MD [Primary Care Provider] - Coding Level of Care Code ED Hand Marker for [facility] Fwd Exam Detailed
[2019-08-02 15:02] LABS: Add Urine Microscopic? NO
[2019-08-02 15:09] LABS: Basophils % 0.2 %; Eosinophils % 0.3 %; Hematocrit 30.4 % (37.0-47.0); Hemoglobin 9.5 g/dL (11.5-15.3); Lymphocytes # 0.4 10^3/uL (0.8-4.8); Lymphocytes % 3.7 %; Mean Corpuscular HGB Conc 31.3 g/dL (30.0-36.0); Mean Corpuscular Hemoglobin 27.3 pg (28.0-34.0); Mean Corpuscular Volume 87.4 fL (81-99); Mean Platelet Volume 9.6 fL (7.4-10.4); Monocytes # 0.4 10^3/uL (0.2-0.9); Monocytes % 4.2 %; Neutrophils # 8.6 10^3/uL (1.8-7.7); Neutrophils % 91.4 %; Nucleated Red Blood Cells % 0 %; Platelet Count 307 10^3/cmm (130-400); Red Blood Count 3.48 10^6/uL (4.1-5.3); Red Cell Distribution Width 15.9 % (12.1-15.1); White Blood Count 9.4 10^3/uL (4.0-10.0)
[2019-08-02 15:22] LABS: Bilirubin Urine Neg (NEGATIVE); Blood Urine Neg (Negative); Glucose Urine UA Norm (Normal); Ketones Urine Negative (Negative); Leukocyte Esterase Urine Negative (Negative); Nitrate Urine Negative (Negative); Protein Urine Neg (Negative); Urine Appearance Clear (CLEAR); Urine Color Yellow (Yellow); Urobilinogen Urine Norm (Negative); pH Urine 5 (5-7)
[2019-08-02] MEDS: sodium chloride 0.9% 500 ML IV (15:26)
[2019-08-02 15:29] LABS: Alanine Aminotransferase 6 U/L (0-33); Alkaline Phosphatase 71 IU/L (35-105); Anion Gap 19.8 (5-19); Aspartate Amino Transferase 11 U/L (0-32); Blood Urea Nitrogen 22 mg/dL (8-23); Calcium 7.7 mg/dL (8.5-10.5); Carbon Dioxide 23 mmol/L (22-29); Chloride 85 mmol/L (98-107); Creatine Phosphokinase 78 U/L (26-192); Globulin 3.2 g/dL (1.3-4.6); Glucose 166 mg/dL (65-115); Lipase 49 U/L (13-60); NT Pro B Type Natriuretic Pept 1163 pg/mL (0-450); Osmolality Calculated 258 mOsm/kg (285-295); Potassium 3.8 mmol/L (3.5-5.1); Sodium 124 mmol/L (136-145); Total Bilirubin 0.4 mg/dL (0.15-1.2); Total Protein 6.2 g/dL (6.6-8.7)
[2019-08-02 15:36] LABS: Lactate (Lactic Acid level) 4.1 mmol/L (0.5-2.2)
[2019-08-02 17:30] VITALS: BP 136/57; PULSE 69; RESP 21; O2SAT 100
[2019-08-02 18:58] VITALS: BP 110/56; PULSE 68; RESP 18; O2SAT 97
[2019-08-02 20:00] VITALS: BP 96/50; PULSE 74; RESP 18; TEMP 36.4; O2SAT 97
--- NOTE | 2019-08-02 20:49 | PM.HP ---
Providers/Chief Complaint Admitting Physician: Stanley Vásquez Primary Care Provider: Viktor Baker MD Chief Complaint: WEAKNESS, VERTIGO, FALL History of Present Illness Michelle Becerra is a 74 year old female with chronic diastolic congestive heart failure, chronic lower extremity swelling, history of VTE, on chronic anticoagulation, DM 2, hypothyroidism, status post thyroidectomy due to thyroid cancer, HTN, GEOVANNI, GERD, with recent admission due to shortness of breath and chest discomfort, during which he underwent extensive cardiac assessment, treated for CHF, and during that time with hyponatremia as well treated with fluid restriction and Lasix. She is chronically on fluid restriction 1500 mL at home. Currently on Lasix 80 mg twice a day. Sodium at that time was 128, creatinine 1.2. She currently returned to the hospital due to a fall at home, where she says she fell off of the commode. She does not exactly remember how she did that. She did denies losing consciousness. She did not have chest pain, pressure, palpitations, or other issues. She denies more shortness of breath than usual. She is chronically on oxygen at home she states at 2 L for COPD. In ER she is noted with worsening hyponatremia, sodium 124, as well as chronic kidney disease with perhaps mild acute kidney injury with creatinine 1.6. Lactic acid is noted at 4.1. Head CT without acute intracranial hemorrhage or edema. Mild atrophy and chronic ischemic disease. Chest x-ray with emphysema. Because she lives alone observation is requested by the ER physician. When asked about it, she does state that she was having an episode of vertigo today, which is new, and lasted a short while. She first noticed it when she was looking at some thread and could not focus on it. She says while she was on the commode she could not look straight. She denies history of CVA. She denies persistent symptoms. Denies ear pain or discharge. She has had no fever, no chills, headache, no sick contacts, no travel. She was assessed for COVID-19 during last admission and was negative. Review of Systems Const: Denies: fever, chills, body aches or malaise Eyes: Denies: change in vision or eye redness ENMT: Denies: throat pain, oral sores/lesions or ear pain Card: Reports: edema (Chronic bilateral lower extremity edema without change.); Denies: chest pain, pre-syncope or shortness of breath on exertion Resp: Reports: productive cough (Intermittent, productive of clear sputum. Denies this is worse than usual.); Denies: shortness of breath, change in phlegm color or coughing up blood GI: Denies: abdominal pain, nausea, vomiting, diarrhea, constipation, blood in stool or black tarry stool : Denies: flank pain, urinary frequency or blood in urine Musc: Denies: back pain, joint swelling or redness Skin/Breast: Denies: rash, sores or new lesion Neuro: Reports: dizziness (episode); Denies: headache, numbness in extremities, weakness in extremities, confusion or seizure-like activity Endo: Denies: excessive urination or excessive thirst Wai/Lymph: Denies: easy bleeding or purpura All/Imm: Denies: hives, throat swelling or tongue swelling Medications/Allergies Home Medications Medication Instructions Recorded Confirmed Last Taken Type Januvia 100 mg PO DAILY 30 Days #30 tab 05/20/19 08/02/19 07/29/19 Rx acetaminophen 650 mg PO Q6H PRN #30 tab 05/20/19 08/02/19 Unknown Rx fenofibrate 48 mg PO DAILY 30 Days #30 tab 05/20/19 08/02/19 07/29/19 Rx levothyroxine 175 mcg PO DAILY 30 Days #30 tab 05/20/19 08/02/19 07/29/19 Rx omeprazole 40 mg PO DAILY 30 Days #30 tab 05/20/19 08/02/19 07/29/19 Rx albuterol sulfate 2.5 mg/0.5 mL 2.5 mg INHALATION Q6H PRN each 06/30/19 08/02/19 Unknown History solution for nebulization cyanocobalamin (vitamin B-12) 500 1,000 mcg PO DAILY 06/30/19 08/02/19 07/29/19 History mcg tablet folic acid 1 mg tablet 1 mg PO DAILY 06/30/19 08/02/19 07/29/19 History metoprolol tartrate 25 mg tablet 25 mg PO BID 06/30/19 08/02/19 07/29/19 History potassium chloride 20 mEq 10 meq PO BID 06/30/19 08/02/19 07/29/19 History tablet,extended release albuterol sulfate 90 mcg/actuation 2 puff INHALATION Q6H PRN 07/06/19 08/02/19 Unknown History aerosol inhaler umeclidinium 62.5 mcg-vilanterol 1 inh INHALATION DAILY 07/06/19 08/02/19 07/25/19 History 25 mcg/actuation powdr for inhalation Myrbetriq 25 mg PO DAILY 07/11/19 08/02/19 07/29/19 History polyethylene glycol 3350 [Miralax] 17 g PO DAILY PRN 07/11/19 08/02/19 07/25/19 History simvastatin 40 mg PO DAILY 07/11/19 08/02/19 07/25/19 History furosemide [Lasix] 80 mg PO BID #60 tab 07/15/19 08/02/19 07/29/19 Rx apixaban 5 mg tablet 5 mg PO BID #180 tab 07/25/19 08/02/19 07/29/19 Rx magnesium oxide 400 mg PO BID #60 cap 07/25/19 08/02/19 07/29/19 Rx nitroglycerin 0.4 mg SUBLINGUAL Q5M PRN 07/26/19 08/02/19 Unknown History calcium carbonate 600 mg PO BID 08/02/19 08/02/19 Unknown History fenofibrate 40 mg PO DAILY 08/02/19 08/02/19 Unknown History Allergies Allergy/AdvReac Type Severity Reaction Status Date / Time methylprednisolone Allergy ALGY-Rash Verified 08/02/19 14:32 [From Solu-Medrol] piperacillin [From Zosyn] Allergy ALGY-Rash Verified 08/02/19 14:32 tazobactam [From Zosyn] Allergy ALGY-Rash Verified 08/02/19 14:32 PFSH Acute PFSH: Medical History (Updated 08/02/19 @ 21:16 by Stanley Vásquez MD) Acute respiratory failure with hypoxia -Required intubation following CODE BLUE, extubated on 05/14 -on diuresis due to anasarca; switch to oral diuretics -Has Mann catheter in place, continue to monitor urine output; removal today -off antibiotic treatment; had been on vancomycin and Levaquin; has noted allergy to Zosyn -CXR (05/18) shows resolution of pneumonia -Echo: EF=64%, no RWMA, G1DD, mild MR, trace AR -afebrile x >24 hrs, vital signs otherwise stable; continue to monitor -continue to monitor renal function, lytes with diuresis -continue to monitor Is & Os, daily weights -telemetry monitoring -sputum cx: mixed nicho; gram stain negative, noted WBCs -blood cx: prelim negative -continue to monitor respiratory status closely -supplemental oxygen as needed -Neb treatments as needed -noted D-dimer elevation, negative PE, negative DVT -very low suspicion for possible aspiration but if continued fever and/or hemodynamic instability may need to include anaerobic coverage; not needed CAD (coronary artery disease) Coronaries appeared normal on angiogram Hypertension Hypothyroidism Well-controlled Lymphedema Macrocytic anemia -has chronic macrocytic anemia; has evidence of vitamin B12 and folate deficiency -replacing vitamin B12, folate -also noted evidence of low iron though ferritin is normal -had reported black stools -baseline Hg is around 11; continue to monitor H/H closely; has been gradually trending down -on PPI Non-insulin dependent type 2 diabetes mellitus NSTEMI (non-ST elevated myocardial infarction) -Noted to have significantly elevated troponins with a delta over 90 which may have precipitated code -Given current need for continued ventilator support, will continue medical management, was already started on a heparin drip, statin, full dose aspirin and Plavix; d/c heparin drip -No acute ischemic changes noted on EKG -Echo done previously as noted below with no noted regional wall motion abnormalities -Continue telemetry monitoring -Cardiology consult by Dr. Turner appreciated; will need outpatient stress testing Surgical History (Updated 08/02/19 @ 21:11 by Stanley Vásquez MD) H/O thyroidectomy History of ankle surgery S/P cholecystectomy Family History Other Breast cancer CAD (coronary artery disease) Diabetes Hypertension Social History Smoking and tobacco status: former smoker Quit status (tobacco): has quit using tobacco Former quit date comment: Smoked briefly in her teens. Alcohol intake: never Lives independently: Yes Household members: none Housing: Apartment Current occupational status: disabled History of recent travel: No Current gender identity: Female Vitals/I&O/Wt Last Vital Signs Temp 97.7 F 08/02/19 14:16 Pulse 68 08/02/19 18:58 Resp 18 08/02/19 18:58 BP 110/56 08/02/19 18:58 Pulse Ox 97 08/02/19 18:58 Weight last 48 hrs Weight 75.75 kg Physical Exam Const: COMMON NORMALS: no apparent distress and oriented x3 HENMT: OTHER: Dry mucous membrane Neck/C-Spine: COMMON NORMALS: no JVD Resp: COMMON NORMALS: normal respiratory effort and clear to auscultation bilaterally AUSCULTATION: clear to auscultation bilaterally Cardio: COMMON NORMALS: no JVD, regular rhythm, S1 normal heart sound, S2 normal heart sound and no murmurs RHYTHM: regular rhythm HEART SOUNDS: S1 normal and S2 normal GI: COMMON NORMALS: normal to inspection, nondistended, normoactive bowel sounds, soft to palpation and non-tender PALPATION: Yes soft Extremity: COMMON NORMALS: no joint enlargement GENERAL: Yes edema (3+ bilateral lower extremity edema which she states is chronic.) Neuro: COMMON NORMALS: oriented x3 and moves all extremities Skin: COMMON NORMALS: no rashes or lesions noted GENERAL SKIN EXAM: no rashes or lesions noted Data : 08/02/19 14:48 08/02/19 14:48 Micro: Microbiology 08/02/19 14:50 Blood Culture - Preliminary Blood SPECIMEN COLLECTED 08/02/19 14:48 Blood Culture - Preliminary Blood SPECIMEN COLLECTED A&P Assessment and plan (1) Fall: Fell off the commode at home. Initially without obvious reason, however, denied chest pain, palpitations, syncope. On closer questioning did state that he could not look straight, and things were shifting about side to side. First noticed that earlier in the day when looking at some thread. Appears follow-up was secondary to episode of vertigo, possibly also due to some worsening of hyponatremia. Vertigo is not persistent, she does not have other focal neurologic deficits to suggest CVA. Vertigo episode was short lasting. She denies any ear pain, discharge or other signs of infection. CT of the head without bleeding, or past CVA. Suspect benign positional vertigo episode, but will assess closer for hyponatremia, and initiate treatment under observation. Status: Acute Qualifiers: Encounter type: initial encounter Qualified Code(s): W19.XXXA - Unspecified fall, initial encounter (2) Chronic hyponatremia: Sodium is worse down to 124. She is on chronic fluid restriction 1500 mL, Lasix 80 mg twice daily. Persistent 3+ lower extremity edema, although otherwise no JVD, dry mucous membranes. She is pale, with some facial myxedema. She says she is constantly cold, gets constipated. Will check TSH, as she does present symptoms of hypothyroidism. With severe lower extremity edema, but otherwise no signs of fluid overload, her volume status is very difficult to magisterial district judge. Chest x-ray without fluid overload. BNP is elevated, but likely secondary to chronic lung disease and chronic kidney disease. She does not appear actively in CHF exacerbation. She is not dyspneic. Denies orthopnea. At this time will request for urine sodium, although this may be affected due to Lasix. Unfortunately urine osmolality is not available unless it is sent out. Will request. This may take a while to come back though. As she appears to be symptomatic, will start her on salt tablets. Monitor for any exacerbation of CHF, will recheck sodium tonight, and in the morning. Status: Acute (3) Vertigo: As above. Currently is not symptomatic. Status: Acute (4) Acute kidney injury: Creatinine is 1.6. She denies NSAID use at home. He is not on JOSEY inhibitor. We will check urine sodium, urea, creatinine. Monitor renal function. Status: Acute (5) Normocytic anemia: Hemoglobin is slightly down to 9.5. She is on chronic anticoagulation. Denies NSAID use. Denies hematochezia, melena. Does not have any abdominal pain. Does appear somewhat pale, with symptoms of hypo-thyroidism. Will assess thyroid function. Normocytic anemia, previously iron deficiency. Will request Hemoccult. Overall suspect this is anemia of chronic disease with her multiple medical comorbidities including CHF and chronic kidney disease. Recheck hemoglobin. Status: Acute Attestations Medical Necessity Statement*: Place in observation. Coding Level of Care Code Acute Splicing Supervisor for Chg Fwd Diagnoses Fall W19.XXXA Encounter type: initial encounter Chronic hyponatremia E87.1 Vertigo R42 Acute kidney injury N17.9 Normocytic anemia D64.9
[2019-08-02 22:22] LABS: Glucose Point of Care 137 mg/dL (70-110)
[2019-08-02] MEDS: sodium chloride 1 gm Tablet PO (22:45)
[2019-08-03] VITALS (11 sets, daily range): BP systolic 95–110; BP diastolic 46–62; PULSE 66–88; RESP 16–18; TEMP 36.3–36.7; O2SAT 92–100
[2019-08-03 00:08] LABS: Sodium 128 mmol/L (136-145)
[2019-08-03] MEDS: acetaminophen 325 mg Tablet 650 MG PO (00:46)
[2019-08-03 04:58] LABS: Thyroid Stimulating Hormone 0.27 uIU/mL (0.27-4.20)
[2019-08-03 05:11] LABS: Urine Creatinine 87 mg/dL (28-217)
[2019-08-03 05:18] LABS: Urea Nitrogen,Urine Random 287 mg/dL
[2019-08-03 06:13] LABS: Basophils % 0.1 %; Eosinophils % 0.4 %; Hematocrit 27.5 % (37.0-47.0); Hemoglobin 8.8 g/dL (11.5-15.3); Lymphocytes # 0.3 10^3/uL (0.8-4.8); Mean Corpuscular Volume 84.4 fL (81-99); Mean Platelet Volume 9.4 fL (7.4-10.4); Monocytes # 0.3 10^3/uL (0.2-0.9); Monocytes % 4.7 %; Neutrophils # 6.1 10^3/uL (1.8-7.7); Neutrophils % 89.5 %; Nucleated Red Blood Cells % 0 %; Platelet Count 271 10^3/cmm (130-400); Red Blood Count 3.26 10^6/uL (4.1-5.3); Red Cell Distribution Width 15.7 % (12.1-15.1); White Blood Count 6.8 10^3/uL (4.0-10.0)
[2019-08-03 06:28] LABS: Alanine Aminotransferase < 5 U/L (0-33); Albumin Level 2.8 g/dL (3.5-5.2); Alkaline Phosphatase 66 IU/L (35-105); Aspartate Amino Transferase 9 U/L (0-32); Blood Urea Nitrogen 22 mg/dL (8-23); Calcium 7.5 mg/dL (8.5-10.5); Carbon Dioxide 26 mmol/L (22-29); Chloride 88 mmol/L (98-107); Globulin 2.7 g/dL (1.3-4.6); Glucose 131 mg/dL (65-115); Osmolality Calculated 262 mOsm/kg (285-295); Sodium 127 mmol/L (136-145); Total Bilirubin 0.4 mg/dL (0.15-1.2); Total Protein 5.5 g/dL (6.6-8.7)
[2019-08-03 07:23] LABS: Glucose Point of Care 130 mg/dL (70-110)
[2019-08-03] MEDS: albuterol 8 gm MDI 2 PUFF INHALATION ×2 (08:19→14:16)
[2019-08-03] MEDS: magnesium oxide 400 mg tablet PO ×2 (09:49→16:57)
[2019-08-03] MEDS: folic acid 1 mg Tablet PO (09:49)
[2019-08-03] MEDS: atorvastatin 40 mg Tablet 20 MG PO (09:49)
[2019-08-03] MEDS: apixaban 5 mg Tablet PO ×2 (09:49→16:57)
[2019-08-03] MEDS: levothyroxine 150 mcg Tablet PO (09:49)
[2019-08-03] MEDS: pantoprazole DR 40 mg Tablet PO (09:49)
[2019-08-03] MEDS: metoprolol tartrate 25 mg Tablet PO ×2 (09:49→16:59)
[2019-08-03] MEDS: fenofibrate 48 mg Tablet PO (09:50)
[2019-08-03] MEDS: FUROsemide 40 mg Tablet PO (09:50)
[2019-08-03] MEDS: levothyroxine 25 mcg Tablet PO (09:51)
[2019-08-03] MEDS: sodium chloride 1 gm Tablet PO ×2 (09:51→16:57)
--- NOTE | 2019-08-03 10:04 | PC.CHAP ---
Pastoral Care Encounter/Spiritual Assessment Type of Contact [] Declined trench digger helper visit [] Patient/Family/Request visit [] Outpatient visit [] Follow-up visit [] Physician referral [] Code/Alert [x] Routine visit [] Staff referral [] Actively dying [] Patient sleeping [] Family support [] [] Out of room [] Palliative care [] [] Receiving care in room [] Pre-surgical visit [] Trauma [] Long length of stay [] ICU visit [] Other: Relational/Emotional Strength [] Patient feels connected with others/family/visitors/staff [] Distress [] Loneliness/isolation [] Abandonment Spirituality of Patient [] Person of Jaky [] Attends Orthodox of their Jaky [x] Believes in Prayer [] Reads Bible or Orthodoxy materials [] There are Spiritual issues to be addressed Sales Center Manager Interventions [x] Prayer [] Active listening [] Non-anxious presence [] Spiritual/emotional support [] Crisis/trauma care [] Spiritual counseling [] Bereavement support [] Provided bereavement packet [] Provided Bible/devotional materials [] Provided toy/stuffed animal, coloring book to patient or family member [] Provided Communion [] Anointing/[place] [] Salvation [x] Completed spiritual assessment [] Other: Impact on Illness or Injury [] Angry [] Fearful [] Anxious [] Often cries [] Exhaustion [] Unable to work [] Unable to attend sabianist [] Unable to walk/stand [] Unable to read [] Unable to drive [] Unable to eat/drink [] Unable to sleep [] Unable to be with family [] Patient intubated [] Other: Summary Patient working on feeling better Time spent with patient 10 min
[2019-08-03 12:01] LABS: Glucose Point of Care 170 mg/dL (70-110)
[2019-08-03 14:04] LABS: Sodium 126 mmol/L (136-145)
[2019-08-03 17:07] LABS: Glucose Point of Care 148 mg/dL (70-110)
--- NOTE | 2019-08-03 20:05 | PM.PN ---
Subjective Subjective: Interval history: She states she is still on and off getting vertigo. Vitals/I&O/Wt Last Vital Signs Temp 98.1 F 08/03/19 11:34 Pulse 80 08/03/19 15:47 Resp 18 08/03/19 15:47 BP 95/58 08/03/19 15:47 Pulse Ox 94 08/03/19 15:47 08/03/19 08/03/19 08/03/19 06:59 14:59 22:59 Intake Total 360 / 360 Output Total 400 / 400 Balance -400 / -400 360 / 360 Weight last 48 hrs Weight 75.75 kg Physical Exam Const: COMMON NORMALS: no apparent distress and oriented x3 Neck/C-Spine: COMMON NORMALS: no JVD Resp: COMMON NORMALS: normal respiratory effort and clear to auscultation bilaterally AUSCULTATION: clear to auscultation bilaterally Cardio: COMMON NORMALS: no JVD, regular rhythm, S1 normal heart sound, S2 normal heart sound and no murmurs RHYTHM: regular rhythm HEART SOUNDS: S1 normal and S2 normal GI: COMMON NORMALS: normal to inspection, nondistended, normoactive bowel sounds, soft to palpation and non-tender PALPATION: Yes soft Extremity: COMMON NORMALS: no joint enlargement GENERAL: Yes edema (3+ bilateral lower extremity edema which she states is chronic.) Neuro: COMMON NORMALS: oriented x3 and moves all extremities Skin: COMMON NORMALS: no rashes or lesions noted GENERAL SKIN EXAM: no rashes or lesions noted Data : 08/03/19 05:49 08/03/19 12:05 Micro: Microbiology 08/02/19 14:50 Blood Culture - Preliminary Blood NEGATIVE TO DATE 08/02/19 14:48 Blood Culture - Preliminary Blood NEGATIVE TO DATE A&P Assessment and plan (1) Fall: Today she states she has some persistent on and off vertigo. Will assess by MRI brain to rule out CVA. She does appear to have some nystagmus. States she would significantly prefer to return to the assisted living, and does not want to go to group home. States she may discuss with family members to arrange a rotation schedule to come and visit/stay with her in addition to home health. Fell off the commode at home. Initially without obvious reason, however, denied chest pain, palpitations, syncope. On closer questioning did state that he could not look straight, and things were shifting about side to side. First noticed that earlier in the day when looking at some thread. Appears follow-up was secondary to episode of vertigo, possibly also due to some worsening of hyponatremia. Vertigo is not persistent, she does not have other focal neurologic deficits to suggest CVA. Vertigo episode was short lasting. She denies any ear pain, discharge or other signs of infection. CT of the head without bleeding, or past CVA. Suspect benign positional vertigo episode, but will assess closer for hyponatremia, and initiate treatment under observation. Status: Acute Qualifiers: Encounter type: initial encounter Qualified Code(s): W19.XXXA - Unspecified fall, initial encounter (2) Normocytic anemia: Hemoglobin trended down again to 8.8. She is chronically on Eliquis. Requested for Hemoccult, although not collected yet. Today microcytic anemia. Requested B12, folic acid. Hemoglobin is slightly down to 9.5. She is on chronic anticoagulation. Denies NSAID use. Denies hematochezia, melena. Does not have any abdominal pain. Does appear somewhat pale, with symptoms of hypo-thyroidism. Will assess thyroid function. Normocytic anemia, previously iron deficiency. Will request Hemoccult. Overall suspect this is anemia of chronic disease with her multiple medical comorbidities including CHF and chronic kidney disease. Recheck hemoglobin. Status: Acute (3) Chronic hyponatremia: Moderate hyponatremia initially with mild improvement with sodium tablet, subsequently again down trended to 126. Will increase tablet dose to 2 g twice daily. Reassess sodium. Urine sodium is 45, urine osmolality is 138. I am not sure how to interpret this in the setting of Lasix use. Discussed with her, she appears may be symptomatic with balance issues. Discussed with her with recommend placement to group home for rehabilitation. She declines. She lives alone. She is on chronic fluid restriction 1500 mL, Lasix 80 mg twice daily. Persistent 3+ lower extremity edema, although otherwise no JVD, dry mucous membranes. She is pale, with some facial myxedema. At the same time dry skin, dry mucous membranes, no JVD. She says she is constantly cold, gets constipated. TSH is normal. With severe lower extremity edema, but otherwise no signs of fluid overload, her volume status is very difficult to brim edge trimmer. Chest x-ray without fluid overload. BNP is elevated, but likely secondary to chronic lung disease and chronic kidney disease. She does not appear actively in CHF exacerbation. She is not dyspneic. Denies orthopnea. As she appears to be symptomatic, will continue her on salt tablets. Monitor for any exacerbation of CHF. Status: Acute (4) Vertigo: As above. Currently is not symptomatic. Status: Acute (5) Acute kidney injury: Prerenal acute kidney injury by FE urea. She does have significant peripheral edema, but for now we will not escalate diuresis. Monitor renal function. She denies NSAID use at home. Is not on JOSEY inhibitor. Status: Acute Attestations Medical Necessity Statement*: Continue hospitalization due to persistent vertigo, rule out CVA as possible although less likely cause. Optimize medical management of symptomatic chronic hyponatremia. Coding Level of Care Code Acute Virtual Assistant For Advertisers for Chg Fwd Diagnoses Fall W19.XXXA Encounter type: initial encounter Normocytic anemia D64.9 Chronic hyponatremia E87.1 Vertigo R42 Acute kidney injury N17.9
[2019-08-03 22:16] LABS: Glucose Point of Care 144 mg/dL (70-110)
[2019-08-04] VITALS (7 sets, daily range): BP systolic 90–112; BP diastolic 48–70; PULSE 61–94; RESP 15–18; TEMP 36.3–36.7; O2SAT 90–99
[2019-08-04 06:15] LABS: Basophils % 0.1 %; Eosinophils % 0.6 %; Hematocrit 27.6 % (37.0-47.0); Hemoglobin 8.7 g/dL (11.5-15.3); Lymphocytes # 0.4 10^3/uL (0.8-4.8); Lymphocytes % 5.5 %; Mean Corpuscular HGB Conc 31.5 g/dL (30.0-36.0); Mean Corpuscular Hemoglobin 27.8 pg (28.0-34.0); Mean Corpuscular Volume 88.2 fL (81-99); Mean Platelet Volume 9.9 fL (7.4-10.4); Monocytes # 0.3 10^3/uL (0.2-0.9); Monocytes % 4.6 %; Neutrophils # 6.2 10^3/uL (1.8-7.7); Neutrophils % 88.9 %; Nucleated Red Blood Cells % 0 %; Platelet Count 257 10^3/cmm (130-400); Red Blood Count 3.13 10^6/uL (4.1-5.3); Red Cell Distribution Width 15.9 % (12.1-15.1)
[2019-08-04 06:28] LABS: Glucose Point of Care 119 mg/dL (70-110)
[2019-08-04 06:31] LABS: Alanine Aminotransferase < 5 U/L (0-33); Albumin Level 2.6 g/dL (3.5-5.2); Alkaline Phosphatase 67 IU/L (35-105); Anion Gap 17.2 (5-19); Aspartate Amino Transferase 11 U/L (0-32); Blood Urea Nitrogen 26 mg/dL (8-23); Calcium 7.5 mg/dL (8.5-10.5); Carbon Dioxide 24 mmol/L (22-29); Chloride 91 mmol/L (98-107); Globulin 3.2 g/dL (1.3-4.6); Glucose 121 mg/dL (65-115); Osmolality Calculated 264 mOsm/kg (285-295); Potassium 4.2 mmol/L (3.5-5.1); Sodium 128 mmol/L (136-145); Total Bilirubin 0.5 mg/dL (0.15-1.2); Total Protein 5.8 g/dL (6.6-8.7)
[2019-08-04] MEDS: fenofibrate 48 mg Tablet PO (08:17)
[2019-08-04] MEDS: apixaban 5 mg Tablet PO ×2 (08:17→17:04)
[2019-08-04] MEDS: levothyroxine 150 mcg Tablet PO (08:17)
[2019-08-04] MEDS: metoprolol tartrate 25 mg Tablet PO ×2 (08:17→17:04)
[2019-08-04] MEDS: magnesium oxide 400 mg tablet PO ×2 (08:17→17:04)
[2019-08-04] MEDS: atorvastatin 40 mg Tablet 20 MG PO (08:17)
[2019-08-04] MEDS: FUROsemide 40 mg Tablet PO (08:18)
[2019-08-04] MEDS: levothyroxine 25 mcg Tablet PO (08:18)
[2019-08-04] MEDS: folic acid 1 mg Tablet PO (08:18)
[2019-08-04] MEDS: pantoprazole DR 40 mg Tablet PO (08:31)
[2019-08-04] MEDS: sodium chloride 1 gm Tablet 2 GM PO ×2 (08:31→17:06)
[2019-08-04 11:40] LABS: Glucose Point of Care 136 mg/dL (70-110)
--- NOTE | 2019-08-04 12:45 | CT_ITS ---
WS: [id number] CT HEAD TECHNIQUE: Noncontrast CT of the head obtained from the skullbase to the vertex. CLINICAL INFORMATION: persistant vertigo/ cva? COMPARISON: August 02, 2019 DLP: 863.[address] scans at [facility] use at least one of these dose optimization techniques: automat ed exposure control; mA and/or kV adjustment per patient size (includes targeted exams where dose is matched to clinical indication); or iterative reconstruction. FINDINGS: No evidence of intracranial hemorrhage or mass effect. Ventricular system and basal cisterns are tenorio nt. Mild small vessel changes with mild parenchymal volume loss. No extra-axial fluid collections. No evidence of mass or mass effect. Normal mccoy-white differentiation. Paranasal sinuses and mastoid air cells are well aerated. .Normal visualized soft tissues. CT/CT head wo con* [id number] IMPRESSION: 1. No evidence of intracranial hemorrhage or mass effect. 2. Mild small vessel changes with mild parenchymal volume loss. 3. No acute intracranial findings.
--- NOTE | 2019-08-04 13:42 | PC.OT ---
OT EVALUATION ATTEMPTED. PATIENT REPORTS CONSTANT 2/10 MEDIAL CHEST PAIN; NURSING INFORMED. PATIENT VITALS: BP 95/60 HR 76 O2 SATURATION: 100% WILL HOLD EVALUATION UNTIL TOMORROW.
--- NOTE | 2019-08-04 14:03 | ECG_ITS ---
Measurements Intervals [place] Rate: 66 P: 30 GA: 167 QRS: 2 QRSD: 89 T: 42 QT: 412 QTc: 434 SINUS RHYTHM WITH OCCASIONAL SUPRAVENTRICULAR PREMATURE COMPLEXES Compared to ECG 07/26/2019 13:20:14 No significant changes Electronically Signed On 08-05-2019 15:24:31 CDT by Shawna Turner M.D. [id number]
[2019-08-04 14:41] LABS: Estmated Average Glucose 151; Hemoglobin A1C 6.9 % (4.0-6.0); Troponin(5th) Baseline 76 ng/mL (0-10)
[2019-08-04] MEDS: aspirin 81 mg EC Tablet 162 MG PO (15:14)
--- NOTE | 2019-08-04 16:03 | ECG_ITS ---
Measurements Intervals [place] Rate: 67 P: 35 [place]: 148 QRS: 3 QRSD: 91 T: 47 QT: 411 QTc: 436 SINUS RHYTHM Compared to ECG 07/26/2019 13:20:14 No significant changes Electronically Signed On 08-05-2019 15:28:49 CDT by Shawna Turner M.D. [id number]
--- NOTE | 2019-08-04 17:09 | PC.RESP ---
Pulmonary Rehab information to patient.
[2019-08-04 17:16] LABS: Glucose Point of Care 142 mg/dL (70-110)
[2019-08-04 17:43] LABS: Troponin 5 2HR 73.79 ng/mL (0-10)
[2019-08-04 17:51] LABS: Troponin 5 2HR Delta -2.21 ABS# (0-10)
--- NOTE | 2019-08-04 18:43 | PM.PN ---
Subjective Subjective: Interval history: Has been having persistent dizziness . On exam appears to have some persistent nystagmus which on closer evaluation appears to be changing direction. MRI of the brain was requested, however, she had declined to complete the study and was returned back to her room. She has been having some persistent chest discomfort today, 2/10, sometimes worse. To some of the staff had reported some pleuritic component, but to me was just saying I do not know, I do not know . She has worked with physical therapy, however, with poor mobility, almost fell on transfer to [facility]. Vitals/I&O/Wt Last Vital Signs Temp 98.1 F 08/04/19 16:00 Pulse 68 08/04/19 16:00 Resp 16 08/04/19 16:00 BP 102/65 08/04/19 16:00 Pulse Ox 96 08/04/19 16:00 08/04/19 08/04/19 08/04/19 06:59 14:59 22:59 Intake Total 100 / 920 240 / 240 240 / 480 Balance 100 / 920 240 / 240 240 / 480 Physical Exam Const: COMMON NORMALS: no apparent distress and oriented x3 HENMT: OTHER: Neck/C-Spine: COMMON NORMALS: no JVD Resp: COMMON NORMALS: normal respiratory effort and clear to auscultation bilaterally AUSCULTATION: clear to auscultation bilaterally Cardio: COMMON NORMALS: no JVD, regular rhythm, S1 normal heart sound, S2 normal heart sound and no murmurs RHYTHM: regular rhythm HEART SOUNDS: S1 normal and S2 normal GI: COMMON NORMALS: normal to inspection, nondistended, normoactive bowel sounds, soft to palpation and non-tender PALPATION: Yes soft Extremity: COMMON NORMALS: no joint enlargement GENERAL: Yes edema (3+ bilateral lower extremity edema which she states is chronic.) Neuro: COMMON NORMALS: oriented x3 and moves all extremities Skin: COMMON NORMALS: no rashes or lesions noted GENERAL SKIN EXAM: no rashes or lesions noted Data : 08/04/19 05:34 08/04/19 05:34 Micro: Microbiology 08/02/19 14:50 Blood Culture - Preliminary Blood NEGATIVE TO DATE 08/02/19 14:48 Blood Culture - Preliminary Blood NEGATIVE TO DATE A&P Assessment and plan (1) Fall: She had [facility] declined [facility] discussion, preferring to return back to her apartment. However, today again almost fell on transfer to MRI. Has been having some persistent dizziness. Subsequently refused to do the study. Today also having some chest pain, so we are assessing for possible acute IN, although this appears to have more pleuritic/musculoskeletal component. On examination she does have some persistent nystagmus which appears to reverse direction at the extremes of gaze. Head impulse maneuver not informative due to degree of nystagmus. Otoscopic evaluation with somewhat opaque tympanic membranes bilaterally, however, without any bulging, no erythema, no fluid/blood/pus. She denies any ear pain, tinnitus or other problems. Given persistence of symptoms, with her balance issues, reversible direction of nystagmus, and risk factors for CVA I believe she is had a stroke. Due to this we have started her on aspirin, she continues on statin. 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 I will assessed by carotid Doppler, TTE. A1c. She declined to do that requested MRI. CT head repeated, without bleeding, or large obvious CVA. Monitor blood pressures, although these have not been elevated. PT/OT assessment. Discussed briefly with our neurologist, she will be expecting her in clinic for additional assessment. Discussed with her that it would not be safe for her to return to the apartments at this time as she lives alone, with in-home service coming in 5 times a week, but all other time she is by herself. Her sister lives 5 floors below, however, per patient's statements herself sister barely ever comes over. Appreciate discharge planning arrangements for placement to SNF for rehabilitation. Status: Acute Qualifiers: Encounter type: initial encounter Qualified Code(s): W19.XXXA - Unspecified fall, initial encounter (2) Normocytic anemia: Hemoglobin 8.7. Hemoccult requested. Monitor hemoglobin as now aspirin is added. Back in April iron deficiency, B12 and folate deficiency for which she is receiving replacement. Possibly also anemia chronic disease. Does appear somewhat pale, with symptoms of hypo-thyroidism. TSH is within normal limits. Status: Acute (3) Chronic hyponatremia: With improvement today up to 128. Continue 2 tablets sodium chloride twice daily. Moderate hyponatremia Reassess sodium. Urine sodium is 45, urine osmolality is 138. I am not sure how to interpret this in the setting of Lasix use. Discussed with her, she appears may be symptomatic with balance issues. She is on chronic fluid restriction 1500 mL, Lasix 80 mg twice daily. Persistent 3+ lower extremity edema, although otherwise no JVD, dry mucous membranes. She is pale, with some facial myxedema. At the same time dry skin, dry mucous membranes, no JVD. She says she is constantly cold, gets constipated. TSH is normal. 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 Chest x-ray without fluid overload. BNP is elevated, but likely secondary to chronic lung disease and chronic kidney disease. She does not appear actively in CHF exacerbation. She is not dyspneic. Denies orthopnea. As she appears to be symptomatic, will continue her on salt tablets. Monitor for any exacerbation of CHF. Status: Acute (4) Vertigo: As above. 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 With persistent symptoms. Status: Acute (5) Acute kidney injury: Creatinine up to 1.9. Prerenal failure according to FE urea. For now we will hold off additional Lasix. Prerenal acute kidney injury by FE urea. She does have significant peripheral edema, but for now we will not escalate diuresis. Monitor renal function. She denies NSAID use at home. Is not on JOSEY inhibitor. Status: Acute Attestations Medical Necessity Statement*: Admission of over 2 midnights is needed for assessment and management of CVA, with persistent vertigo, acute on chronic hyponatremia, acute kidney injury, normocytic anemia, disposition arrangements. Coding Level of Care Code Acute Sleeve Setter Lockstitch for Chg Fwd Diagnoses Fall W19.XXXA Encounter type: initial encounter Normocytic anemia D64.9 Chronic hyponatremia E87.1 Vertigo R42 Acute kidney injury N17.9
[2019-08-04 20:33] LABS: Troponin 5 6HR 75.32 ng/mL (0-10)
[2019-08-04 20:40] LABS: Troponin 5 6HR Delta -0.68 ng/L (0-12)
[2019-08-04 21:29] LABS: Glucose Point of Care 161 mg/dL (70-110)
[2019-08-04] MEDS: atorvastatin 40 mg Tablet PO (21:37)
[2019-08-05] VITALS (8 sets, daily range): BP systolic 94–130; BP diastolic 50–76; PULSE 64–98; RESP 17–22; TEMP 36.3–36.8; O2SAT 93–100
[2019-08-05 06:02] LABS: Basophils % 0.3 %; Eosinophils # 0.1 10^3/uL (0.0-0.8); Eosinophils % 1.4 %; Hematocrit 29.5 % (37.0-47.0); Hemoglobin 9.3 g/dL (11.5-15.3); Lymphocytes # 0.4 10^3/uL (0.8-4.8); Lymphocytes % 6.2 %; Mean Corpuscular HGB Conc 31.5 g/dL (30.0-36.0); Mean Corpuscular Hemoglobin 26.9 pg (28.0-34.0); Mean Corpuscular Volume 85.3 fL (81-99); Mean Platelet Volume 9.5 fL (7.4-10.4); Monocytes # 0.4 10^3/uL (0.2-0.9); Monocytes % 5.5 %; Neutrophils # 5.6 10^3/uL (1.8-7.7); Neutrophils % 86.3 %; Nucleated Red Blood Cells % 0 %; Platelet Count 273 10^3/cmm (130-400); Red Blood Count 3.46 10^6/uL (4.1-5.3); Red Cell Distribution Width 15.8 % (12.1-15.1); White Blood Count 6.5 10^3/uL (4.0-10.0)
[2019-08-05 06:23] LABS: Anion Gap 17.3 (5-19); Blood Urea Nitrogen 30 mg/dL (8-23); Calcium 7.6 mg/dL (8.5-10.5); Carbon Dioxide 25 mmol/L (22-29); Chloride 93 mmol/L (98-107); Glucose 120 mg/dL (65-115); Osmolality Calculated 270 mOsm/kg (285-295); Potassium 4.3 mmol/L (3.5-5.1); Sodium 131 mmol/L (136-145)
[2019-08-05 06:52] LABS: Glucose Point of Care 169 mg/dL (70-110)
--- NOTE | 2019-08-05 09:20 | PC.SOCIAL ---
IMM Page 2 of IMM explained to patient. Initialed, dated, and timed and placed in chart.
[2019-08-05] MEDS: sodium chloride 1 gm Tablet 2 GM PO (09:24)
[2019-08-05] MEDS: metoprolol tartrate 25 mg Tablet 12.5 MG PO (09:25)
[2019-08-05] MEDS: aspirin 81 mg EC Tablet 162 MG PO (09:25)
[2019-08-05] MEDS: magnesium oxide 400 mg tablet PO (09:25)
[2019-08-05] MEDS: levothyroxine 25 mcg Tablet PO (09:25)
[2019-08-05] MEDS: fenofibrate 48 mg Tablet PO (09:25)
[2019-08-05] MEDS: folic acid 1 mg Tablet PO (09:25)
[2019-08-05] MEDS: atorvastatin 40 mg Tablet 20 MG PO (09:26)
[2019-08-05] MEDS: levothyroxine 150 mcg Tablet PO (09:26)
[2019-08-05] MEDS: pantoprazole DR 40 mg Tablet PO (09:26)
[2019-08-05] MEDS: apixaban 5 mg Tablet PO (09:26)
[2019-08-05 10:41] LABS: Glucose Point of Care 125 mg/dL (70-110)
--- NOTE | 2019-08-05 14:06 | USCV_ITS ---
Michelle Becerra Age: 74 Gender: F : 1945 Exam Date: 08/05/2019 08:01 Ordering Phys: Stanley áVsquez MD Technologist: Tammy Pineda Exam Location: [facility] [place] Indication: SUSPECTED CVA, ASSESS FOR ANY OBVIOUS THROMBUS OR VEGETATION BP: / HR: 65 Rhythm: Sinus Technical Quality: Adequate MEASUREMENTS (Male / Female) Normal Values 2D ECHO LV Diastolic Diameter PLAX 4.7 cm 4.2 - 5.9 / 3.9 - 5.3 cm LV Systolic Diameter PLAX 2.9 cm IVS Diastolic Thickness 0.9 cm 0.6 - 1.0 / 0.6 - 0.9 cm IVS Systolic Thickness 1.3 cm LVPW Diastolic Thickness 1.0 cm 0.6 - 1.0 / 0.6 - 0.9 cm LVPW Systolic Thickness 1.3 cm LV Ejection Fraction 2D Teich 69.0 % LV Ejection Fraction MOD 2C 62.6 % LV Ejection Fraction 2C AL 65.5 % LA Diameter 3.7 cm LA Width 3.3 cm LA Height 5.1 cm RA Width 3.2 cm RA Height 4.6 cm M-MODE LV Diastolic Diameter MM 5.3 cm 4.2 - 5.9 / 3.9 - 5.3 cm LV Systolic Diameter MM 3.2 cm LV Ejection Fraction MM Teich 69.1 % IVS Diastolic Thickness MM 1.0 cm 0.6 - 1.0 / 0.6 - 0.9 cm IVS Systolic Thickness MM 1.6 cm LVPW Diastolic Thickness MM 1.1 cm 0.6 - 1.0 / 0.6 - 0.9 cm LVPW Systolic Thickness MM 1.4 cm Aortic Annulus Diameter 2.5 cm LA Ao Ratio MM 1.5 FINDINGS Left Ventricle Normal left ventricular size and systolic function, EF 63 %. No regional wall motion abnormalities. Right Ventricle Normal right ventricular size and systolic function. Right Atrium Normal right atrial size. Left Atrium Normal left atrial size. Mitral Valve Thickened mitral valve. Mild mitral annular calcification. Aortic Valve Thickened aortic valve. Tricuspid Valve No gross abnormalities noted Pulmonic Valve Pulmonic valve not well visualized. Pericardium No pericardial effusion. Aorta Normal aorta. CONCLUSIONS Normal left ventricular size and systolic function, EF 63 %. No regional wall motion abnormalities. Thickened mitral valve. Mild mitral annular calcification. Thickened aortic valve. There is no pericardial effusion. There are no intracardiac masses. Compared to the previous study from 05/08/2019, there may not be a significant change in the 2D findings Dr Yulissa Colon MD [facility] (Electronically Signed) Final Date: 05 Aug 2019 11:04 S
--- NOTE | 2019-08-05 14:06 | USCV_ITS ---
Michelle Becerra Age: 74 Gender: F : 1945 Exam Date: 08/05/2019 07:32 Ordering Phys: Stanley Vásquez MD Technologist: Tammy Pineda Exam Location: [facility] [place] Indication: SUSPECTED CVA, ASSESS FOR ANY OBVIOUS THROMBUS OR VEGETATION Risk Factors: Previous Vascular Surgery: Right Brachial BP: / Left Brachial BP: / Right Left Velocity (cm/s) Spectral Plaque Velocity (cm/s) Spectral Plaque Syst/Diast Broadening Syst/Diast Broadening 60.70/ 11.10 Prox CCA 56.40 / 15.40 64.10/ 16.20 Mid CCA 76.90 / 16.20 48.70/ 13.70 Distal CCA 52.10 / 12.80 65.80/ 23.10 Prox ICA 65.80 / 20.50 67.50/ 23.90 Mid ICA 88.00 / 23.90 81.20/ 28.20 Distal ICA 109.20/ 34.20 79.50 ECA 70.10 1.27 ICA/CCA 1.42 Antegrade Vertebral Antegrade 41.90/ 15.40 cm/s 43.00/ 15.40 cm/s Tri Subclavian Tri 140.7 205.1 0 0 FINDINGS Mild to moderate scattered dense plaques at the right bifurcation and proximal internal carotid artery Moderate heterogeneous plaques at the left bifurcation and internal carotid artery Intimal thickening in the common carotid arteries bilaterally Antegrade flow in the vertebral arteries bilaterally CONCLUSIONS Moderate heterogeneous plaques at the left bifurcation and internal carotid artery with velocity elevation consistent with 16 to 49% stenosis. Mild to moderate scattered dense plaques at the right bifurcation and proximal internal carotid artery. No similar previous studies are available for comparison Dr Yulissa Colon MD [facility] (Electronically Signed) Final Date: 05 Aug 2019 10:33 S
[2019-08-05 16:16] LABS: Glucose Point of Care 121 mg/dL (70-110)
--- NOTE | 2019-08-05 16:30 | P.DS_ITS ---
Discharge Providers Date of Admission: 08/02/19 17:01 Date of Discharge: August 05, 2019 Attending Provider at Admission: Stanley Vásquez Attending Provider at Discharge: Stanley Vásquez Primary Care Provider: Viktor Baker MD Diagnoses at Discharge Discharge Diagnosis (1) Fall: Status: Acute Qualifiers: Encounter type: initial encounter Qualified Code(s): W19.XXXA - Unspecified fall, initial encounter (2) Vertigo: Status: Acute Problem details: Suspected central vertigo secondary to CVA. Unfortunately she had declined assessment by MRI. CT head without major abnormality. Moderate heterogenous plaques left internal carotid artery, 16-49% stenosis. Continues on anticoagulation. Aspirin added. Statin changed to high intensity. (3) Normocytic anemia: Status: Acute Problem details: Hemoglobin stabilized. Please follow-up with fecal immunochemical test, monitor hemoglobin level. (4) Chronic hyponatremia: Status: Acute (5) Acute kidney injury: Status: Acute Problem details: Acute kidney injury on chronic kidney disease. Renal function will be rechecked in 3 days. Please follow-up. Avoid NSAIDs. Monitor blood pressures. Reason for Visit Reason for Visit: Reason For Visit: WEAKNESS, VERTIGO, FALL Hospital Course Hospital Course: Very pleasant 74-year-old lady with chronic diastolic congestive heart failure, chronic lower extremity edema, history of VTE, on chronic anticoagulation with Eliquis, DM 2, hypothyroidism, status post thyroidectomy due to thyroid cancer, HTN, GEOVANNI, GERD, recent admission due to shortness of breath and chest discomfort, during which he underwent extensive cardiac assessment, treated for CHF, and during that time with hyponatremia as well treated with fluid restriction and Lasix, in April with cardiopulmonary arrest of unclear etiology, thought possibly non-STEMI related, however, with unremarkable coronary angiography later in June, was admitted for evaluation this time after she had fallen off the commode at home. On admission with noted worsened hyponatremia, sodium 124. On assessment with noted worsening of balance, difficulties with transfers. Initially on presentation on closer questioning also reported some episodes of vertigo, although at that time was asymptomatic, although did report having vertigo in the preceding days, including during the fall with things shifting about side to side . Subsequently having also recurrent episodes of vertigo in the hospital, persistent, mild to moderate, without any otological symptoms, and with unremarkable ear exam. When examined during episode, with noted nystagmus which reverses direction depending on where she is looking. Head impulse test, unfortunately unrevealing. She was assessed by CT head, without major abnormality noted, subsequently MRI was attempted, however, after getting to the room she had declined to go through with the study. CT head was repeated, and without noted changes. 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 She was started on aspirin, continued on anticoagulation as previously, and her statin was increased to high intensity. She just recently had an echocardiogram in April. Carotid Doppler was performed and she was found to have moderate plaque on the left side, with 16-49% stenosis. Her diabetes appears to be well controlled, with A1c of 6.9. Her blood pressures appear to be mostly at goal. She will continue on high intensity statin from here on, and at this time continue on antiplatelet in addition to anticoagulation, and we will have her following up with neurology in office for additional assessment and recommendation. While in the hospital her hyponatremia was also treated with oral sodium chloride tablets, with gradual improvement, as high as 131 today. At this time she will continue on 2 g twice daily tablets, and sodium will be rechecked in 3 days. Please adjust treatment as appropriate depending on levels going forward. She is having some symptoms of hypothyroidism, with being cold, constipation, and some chronic edema/myxedema. Thyroid function, however, was found to be within normal limits. Please reassess in case becoming more symptomatic. She was also being monitored with regards to hemoglobin, due to chronic anemia for which she is receiving supplementation with folic acid and B12. Hemoccult test was requested during this admission, however, could not be collected. Her hemoglobin appears stable, today at 9.3. However, with need for long-term anticoagulation, and currently antiplatelet medication as well, please monitor level, and follow-up fecal immunochemical investigations/other testing as appropriate. Given she has had persistent/on and off vertigo, as well as balance issues with hyponatremia, and increased risk of falls, difficulties with transfers, she would benefit from rehabilitation at SNF to which she has been agreeable, and was currently accepted to transfer to [place]. Of note her creatinine is seem to be worsening somewhat, perhaps secondary to chronic congestive heart failure. Follow-up is requested for 3 days from now. Please avoid NSAIDs or other potential injuries medications, and follow-up the renal function. Physical Exam Const: COMMON NORMALS: no apparent distress and oriented x3 HENMT: OTHER: Neck/C-Spine: COMMON NORMALS: no JVD Resp: COMMON NORMALS: normal respiratory effort and clear to auscultation bilaterally AUSCULTATION: clear to auscultation bilaterally Cardio: COMMON NORMALS: no JVD, regular rhythm, S1 normal heart sound, S2 normal heart sound and no murmurs RHYTHM: regular rhythm HEART SOUNDS: S1 normal and S2 normal GI: COMMON NORMALS: normal to inspection, nondistended, normoactive bowel sounds, soft to palpation and non-tender PALPATION: Yes soft Extremity: COMMON NORMALS: no joint enlargement GENERAL: Yes edema (3+ bilateral lower extremity edema which she states is chronic.) Neuro: COMMON NORMALS: oriented x3 and moves all extremities Skin: COMMON NORMALS: no rashes or lesions noted GENERAL SKIN EXAM: no rashes or lesions noted Discharge Data Data Completed and Pending: Completed Studies During Hospitalization Category Date Time Status CT head wo con* 7 0450 Routine Cat Scan 08/04/19 12:[address] head wo con* 7 0450 Urgent Cat Scan 08/02/19 14:21 Completed XR chest 1V elsa ble [id number] Urgent Exams 08/02/19 14:21 Completed CV carotid duplex BI* [id number] Routine Ultrasound 08/05/19 14:06 Completed CV echo limited 9 3308 Routine Ultrasound 08/05/19 14:06 Completed Pending at discharge Category Date Time Status Basic Metabolic P arnaldo AM LABS Lab 08/06/19 04:00 Ordered Basic Metabolic P arnaldo AM LABS Lab 08/07/19 04:00 Ordered Blood Culture Sta t Lab 08/02/19 14:50 Results Immunochemical Fe christina OCB Routine Lab 08/02/19 21:12 Uncollected UA w/Reflex to Mi croscope [Urinalys is] Routine Lab 08/05/19 05:04 Uncollected Urine Random Sodi um Routine Lab 08/02/19 20:53 Uncollected Labs from last 24 hours 08/05/19 08/05/19 08/05/19 16:10 10:30 06:41 WBC RBC Hgb Hct MCV MCH MCHC RDW Plt Count MPV Neut % (Auto) Lymph % (Auto) [place] % (Auto) Eos % (Auto) Baso % (Auto) Neut # (Auto) Lymph # (Auto) [place] # (Auto) Eos # (Auto) Baso # (Auto) Nucleated RBC % (a uto) Nucleated RBCs # Sodium Potassium Chloride Carbon Dioxide Anion Gap BUN Creatinine Glucose POC Glucose 121 125 169 Calculated Osmolal ity Calcium Troponin I 6 Hour Troponin I Hi Sens Del Troponin T [address] [place] Delta Troponin T 08/05/19 08/05/19 08/04/19 05:43 05:43 21:17 WBC 6.5 RBC 3.46 L Hgb 9.3 L Hct 29.5 L MCV 85.3 MCH 26.9 L MCHC 31.5 RDW 15.8 H Plt Count 273 MPV 9.5 Neut % (Auto) 86.3 Lymph % (Auto) 6.2 [place] % (Auto) 5.5 Eos % (Auto) 1.4 Baso % (Auto) 0.3 Neut # (Auto) 5.6 Lymph # (Auto) 0.4 L [place] # (Auto) 0.4 Eos # (Auto) 0.1 Baso # (Auto) 0.0 Nucleated RBC % (a uto) 0 Nucleated RBCs # 0.0 Sodium 131 L Potassium 4.3 Chloride 93 L Carbon Dioxide 25 Anion Gap 17.3 BUN 30 H Creatinine 1.9 H Glucose 120 H POC Glucose 161 Calculated Osmolal ity 270 L Calcium 7.6 L Troponin I 6 Hour Troponin I Hi Sens Del Troponin T 120 [address] [place] Troponin T 08/04/19 08/04/19 08/04/19 20:12 17:02 17:00 WBC RBC Hgb Hct MCV MCH MCHC RDW Plt Count MPV Neut % (Auto) Lymph % (Auto) [place] % (Auto) Eos % (Auto) Baso % (Auto) Neut # (Auto) Lymph # (Auto) [place] # (Auto) Eos # (Auto) Baso # (Auto) Nucleated RBC % (a uto) Nucleated RBCs # Sodium Potassium Chloride Carbon Dioxide Anion Gap BUN Creatinine Glucose POC Glucose 142 Calculated Osmolal ity Calcium Troponin I 6 Hour 75.32 H Troponin I Hi Sens Del -0.68 L Troponin T [address] [place] 73.79 H Delta Troponin T -2.21 L Vitals: Last Vital Signs Temp 97.9 F 08/05/19 15:57 Pulse 87 08/05/19 15:57 Resp 18 08/05/19 15:57 BP 130/76 08/05/19 15:57 Pulse Ox 96 08/05/19 15:57 Discharge Plan Discharge Patient Disposition: Xfer SNF Condition: Fair Prescriptions: New atorvastatin 40 mg Tablet 40 mg PO BEDTIME Qty: 30 RF: 0 sodium chloride 1 gram Tablet 2 g PO BID Qty: 120 RF: 0 aspirin 81 mg Tablet,Delayed Release (Dr/Ec) 162 mg PO DAILY Qty: 30 RF: 0 Continued potassium chloride 20 mEq tablet extended release 10 meq PO BID RF: 0 cyanocobalamin (vitamin B-12) [B-12 DOTS] 500 mcg tablet 1,000 mcg PO DAILY RF: 0 metoprolol tartrate 25 mg tablet 25 mg PO BID RF: 0 folic acid 1 mg tablet 1 mg PO DAILY RF: 0 albuterol sulfate 2.5 mg/0.5 mL solution for nebulization 2.5 mg INHALATION Q6H PRN (Reason: unknown) RF: 0 Anoro Ellipta 62.5-25 mcg/actuation blister with device 1 inh INHALATION DAILY RF: 0 albuterol sulfate [Ventolin HFA] 90 mcg/actuation HFA aerosol inhaler 2 puff INHALATION Q6H PRN (Reason: Shortness Of Breath) RF: 0 Eliquis 5 mg tablet 5 mg PO BID Qty: 180 RF: 3 magnesium oxide 400 mg magnesium capsule 400 mg PO BID Qty: 60 RF: 0 acetaminophen 325 mg Tablet 650 mg PO Q6H PRN (Reason: Mild/Mod Pain Or Temp >/= 101) Qty: 30 RF: 0 levothyroxine 175 mcg Tablet 175 mcg PO DAILY 30 Days Qty: 30 RF: 0 Januvia 100 mg PO DAILY 30 Days Qty: 30 RF: 0 fenofibrate 48 mg PO DAILY 30 Days Qty: 30 RF: 0 omeprazole 40 mg PO DAILY 30 Days Qty: 30 RF: 0 nitroglycerin 0.4 mg tablet, sublingual 0.4 mg SUBLINGUAL Q5M PRN (Reason: Chest Pain) RF: 0 Myrbetriq 25 mg tablet extended release 24 hr 25 mg PO DAILY RF: 0 polyethylene glycol 3350 [Miralax] 17 gram/dose Powder 17 g PO DAILY PRN (Reason: Constipation) RF: 0 furosemide [Lasix] 80 mg tablet 80 mg PO BID Qty: 60 RF: 0 calcium carbonate 390 mg calcium (1,000 mg) tablet 600 mg PO BID RF: 0 fenofibrate 40 mg Tablet 40 mg PO DAILY RF: 0 Discontinued simvastatin 40 mg Tablet 40 mg PO DAILY RF: 0 Discharge Orders: Discharge Order (Routine); Ordered 08/05/19 Ordered By: Stanley Vásquez Other Ambulatory Orders: Basic Metabolic Panel (Routine) Timeframe: 3 Days Facility: [facility] - Location: Lab - Main Lab Ordered By: Stanley Vásquez Complete Blood Count w/Auto (Routine) Timeframe: 3 Days Location: Determined by Patient Ordered By: Stanley Vásquez Immunochemical Fecal OCB (Routine) Timeframe: 3 Days Facility: [facility] - Location: Lab - Main Lab Ordered By: Stanley Vásquez Referrals: [facility] [place] [Outside] Zita Grant MD [Physician] - 1 week (Vertigo, suspected CVA) Viktor Baker MD [Primary Care Provider] - 4-7 days (Vertigo, suspected CVA, hyponatremia) Shawna Turner MD [Physician] - 08/11/19 Discharge Diet: Diabetic Discharge Activity: Increase activity as tolerated, Limit activity as instructed, As per PT/OT instructions and Oxygen as instructed Patient Instructions: Aspirin (By mouth), Atorvastatin (By mouth) Activity Restrictions/Additional Instructions: Strict fall precautions due to vertigo. Balance issues with hyponatremia. Please discuss with primary care doctor regarding follow-up for anemia, testing for fecal occult blood. Due to kidney injury, current kidney disease, avoid any NSAIDs. At this time continue 1500 mL fluid restriction as previously recommended. Continue oxygen by nasal cannula, 2.5 L, titrate as needed to maintain saturation 92%. Discharge Attestations Time Spent in Discharge Care*: greater than 30 min Status at Discharge: Cognitive status at discharge: cognitively intact , Behavioral status at discharge: cooperative , Quality Metrics Clinical Quality Measures During this hospital stay, did patient experience: Stroke Contraindication to Antithrombotic: Antithrombotic prescribed Contraindication to Anticoagulation: Anticoagulation prescribed Contraindication to Statin: Statin prescribed Coding Level of Care Code Acute Credit Analyst for Chg Fwd Diagnoses Fall W19.XXXA Encounter type: initial encounter Vertigo R42 Normocytic anemia D64.9 Chronic hyponatremia E87.1 Acute kidney injury N17.9
== END 2019-08-05 17:00 | disposition skilled nursing facility (03) ==
LOC: ER 16:59 → MEDSURG 18:11
PROVIDERS: Admitting Provider Internal Medicine; Emergency Provider Family Medicine; Family Provider Family Medicine; PCP Family Medicine; Visit Provider Internal Medicine
DX: E87.1 Hypo-osmolality and hyponatremia (principal); R42 Dizziness and giddiness; I65.23 Occlusion and stenosis of bilateral carotid arteries; N17.9 Acute kidney failure, unspecified; D64.9 Anemia, unspecified; Z91.81 History of falling; I11.0 Hypertensive heart disease with heart failure; I50.32 Chronic diastolic (congestive) heart failure; Z79.01 Long term (current) use of anticoagulants; E11.9 Type 2 diabetes mellitus without complications; Z85.850 Personal history of malignant neoplasm of thyroid; G47.33 Obstructive sleep apnea (adult) (pediatric); K21.9 Gastro-esophageal reflux disease without esophagitis; Z99.81 Dependence on supplemental oxygen; Z79.84 Long term (current) use of oral hypoglycemic drugs; I25.10 Atherosclerotic heart disease of native coronary artery without angina pectoris; Z82.49 Family history of ischemic heart disease and other diseases of the circulatory system; Z83.3 Family history of diabetes mellitus; Z87.891 Personal history of nicotine dependence
CPT/HCPCS: 12345; 36415; 36416; 70450; 71045; 80048; 80053; 81003; 82550; 82570; 82962; 83036; 83605; 83690; 83880; 84295; 84443; 84484; 84540; 84550; 85025; 87040; 93005; 93308; 93880; 94640; 94664; 96361; 96372; 96374; 97110; 97163; 97165; 99283; 99285; G0378; J1815; J7040

== ENCOUNTER 2019-08-12 15:55 | Inpatient (IN) | payer MEDICARE, MEDICAID, SELFPAY ==
[2019-08-12] VITALS (19 sets, daily range): BP systolic 92–113; BP diastolic 44–68; PULSE 65–78; RESP 12–25; TEMP 36.4–36.6; O2SAT 98–100; BMI 36.6
--- NOTE | 2019-08-12 16:08 | W.ED.GENADLT ---
HPI - General Adult General: Chief complaint: General Medical Stated complaint: LOW HGB / GENERAL WEAKNESS Time Seen by Provider: 08/12/19 16:05 History of Present Illness: HPI narrative: Patient is a pleasant 74 year old woman from a [place]. She does not know why she is here. She denies any complaints. History of dementia. She was recently here with complaints of feeling strange and was recently seen at the [facility] with anemia. Associated symptoms: Deny chest pain, dyspnea, headache(s), nausea or vomiting Review of Systems General: Reports: 10 or more systems reviewed and unremarkable except in HPI and below and Other (questionable reliability of history from this patient) Const: Denies: fever(s) or chills Card: Denies: chest pain Resp: Denies: dyspnea, productive cough or non-productive cough GI: Denies: abdominal pain, nausea or vomiting : Denies: difficulty voiding Neuro: Denies: headache(s) PFSH ED PFSH: Medical History Acute respiratory failure with hypoxia -Required intubation following CODE BLUE, extubated on 05/14 -on diuresis due to anasarca; switch to oral diuretics -Has Mann catheter in place, continue to monitor urine output; removal today -off antibiotic treatment; had been on vancomycin and Levaquin; has noted allergy to Zosyn -CXR (05/18) shows resolution of pneumonia -Echo: EF=64%, no RWMA, G1DD, mild MR, trace AR -afebrile x >24 hrs, vital signs otherwise stable; continue to monitor -continue to monitor renal function, lytes with diuresis -continue to monitor Is & Os, daily weights -telemetry monitoring -sputum cx: mixed nicho; gram stain negative, noted WBCs -blood cx: prelim negative -continue to monitor respiratory status closely -supplemental oxygen as needed -Neb treatments as needed -noted D-dimer elevation, negative PE, negative DVT -very low suspicion for possible aspiration but if continued fever and/or hemodynamic instability may need to include anaerobic coverage; not needed CAD (coronary artery disease) Coronaries appeared normal on angiogram Hypertension Hypothyroidism Well-controlled Lymphedema Macrocytic anemia -has chronic macrocytic anemia; has evidence of vitamin B12 and folate deficiency -replacing vitamin B12, folate -also noted evidence of low iron though ferritin is normal -had reported black stools -baseline Hg is around 11; continue to monitor H/H closely; has been gradually trending down -on PPI Non-insulin dependent type 2 diabetes mellitus NSTEMI (non-ST elevated myocardial infarction) -Noted to have significantly elevated troponins with a delta over 90 which may have precipitated code -Given current need for continued ventilator support, will continue medical management, was already started on a heparin drip, statin, full dose aspirin and Plavix; d/c heparin drip -No acute ischemic changes noted on EKG -Echo done previously as noted below with no noted regional wall motion abnormalities -Continue telemetry monitoring -Cardiology consult by Dr. Turner appreciated; will need outpatient stress testing Surgical History H/O thyroidectomy History of ankle surgery S/P cholecystectomy Family History Other Breast cancer CAD (coronary artery disease) Diabetes Hypertension Social History Smoking and tobacco status: former smoker Quit status (tobacco): has quit using tobacco Former quit date comment: Smoked briefly in her teens. Alcohol intake: never Lives independently: Yes Household members: none Housing: Apartment Current occupational status: disabled History of recent travel: No Current gender identity: Female Physical Exam Const: COMMON NORMALS: no acute distress, average body habitus, patient oriented x3 and alert GENERAL APPEARANCE: cooperative and comfortable ORIENTATION/CONSCIOUSNESS: Yes oriented to person, Yes oriented to place and Yes confused; not oriented to time Neck/C-Spine: COMMON NORMALS: full ROM and supple Chest: COMMONS NORMALS: normal inspection of the chest Resp: COMMON NORMALS: normal respiratory effort, No retractions, No use of accessory muscles and clear to auscultation bilaterally AUSCULTATION: clear to auscultation bilaterally Cardio: COMMON NORMALS: regular rate, regular rhythm and No murmurs present (Cardio) RATE: regular rate RHYTHM: regular rhythm GI: COMMON NORMALS: Normal to inspection, nondistended, normoactive bowel sounds present, Soft to palpation and no masses PALPATION: Yes Soft to palpation and Yes Tenderness to palpation present (GI) (mild diffuse) Back/Pelvis: COMMON NORMALS: thoracic and lumbar spine normal to inspection Extremity: COMMON NORMALS: normal to inspection Neuro: COMMON NORMALS: patient oriented x3 SENSORIUM/ORIENTATION: Yes alert, Yes oriented to person, Yes oriented to place and No oriented to time SPEECH: speech normal MOTOR EXAM: 5/5 motor strength present throughout Psych: COMMON NORMALS: mental status grossly normal, cooperative and activity/motor behavior normal Skin: COMMON NORMALS: no rashes or lesions noted GENERAL SKIN EXAM: no rashes or lesions noted Course ED course: Hgb 6.8 today, down from 9 a few days ago. No clear source of blood loss. She denies complaints to me. She is a poor historian. She will be admitted for transfusion and work up to determine the cause of her anemia. Vital Signs: Vital signs: Vital Signs Temperature 97.8 F 08/12/19 19:52 Pulse Rate 66 08/12/19 20:06 Respiratory Rate 18 08/12/19 20:06 Blood Pressure 95/49 08/12/19 20:06 Pulse Oximetry 100 08/12/19 20:06 [facility] - General Adult Lab Data: Labs: Lab Results 08/12/19 08/12/19 08/12/19 Range/Units 16:20 16:20 16:20 WBC 4.9 (4.0-10.0) 10^3/ uL RBC 2.50 L (4.1-5.3) 10^6/u L Hgb 6.8 L (11.5-15.3) g/dL Hct 22.4 L (37.0-47.0) % MCV 89.6 (81-99) fL MCH 27.2 L (28.0-34.0) pg MCHC 30.4 (30.0-36.0) g/dL RDW 17.1 H (12.1-15.1) % Plt Count 162 (130-400) 10^3/c mm MPV 10.2 (7.4-10.4) fL Neut % (Auto) 85.8 % Lymph % (Auto) 6.6 % [place] % (Auto) 6.0 % Eos % (Auto) 0.6 % Baso % (Auto) 0.2 % Neut # (Auto) 4.2 (1.8-7.7) 10^3/u L Lymph # (Auto) 0.3 L (0.8-4.8) 10^3/u L [place] # (Auto) 0.3 (0.2-0.9) 10^3/u L Eos # (Auto) 0.0 (0.0-0.8) 10^3/u L Baso # (Auto) 0.0 (0.0-0.1) 10^3/u L Nucleated RBC % (a uto) 0 % Nucleated RBCs # 0.0 /100WBC Sodium 139 (136-145) mmol/L Potassium 3.9 (3.5-5.1) mmol/L Chloride 97 L (98-107) mmol/L Carbon Dioxide 29 (22-29) mmol/L Anion Gap 16.9 (5-19) BUN 30 H (8-23) mg/dL Creatinine 2.1 H (0.5-0.9) mg/dL Glucose 123 H (65-115) mg/dL Calculated Osmolal ity 286 (285-295) mOsm/k g Calcium 7.9 L (8.5-10.5) mg/dL Total Bilirubin 0.4 (0.15-1.2) mg/dL AST 11 (0-32) U/L ALT 9 (0-33) U/L Alkaline Phosphata se 53 (35-105) IU/L Total Protein 5.8 L (6.6-8.7) g/dL Albumin 3.1 L (3.5-5.2) g/dL Globulin 2.7 (1.3-4.6) g/dL Blood Type B Negative Rho(D) Type Negaive Antibody Screen Negative Crossmatch See Detail Discharge Plan Discharge Admit Provider: Gagan Albright Coding Level of Care Code ED Apprentice Technician for g Fwd Exam Comprehensive
[2019-08-12 16:39] LABS: Basophils % 0.2 %; Eosinophils % 0.6 %; Hematocrit 22.4 % (37.0-47.0); Hemoglobin 6.8 g/dL (11.5-15.3); Lymphocytes # 0.3 10^3/uL (0.8-4.8); Lymphocytes % 6.6 %; Mean Corpuscular HGB Conc 30.4 g/dL (30.0-36.0); Mean Corpuscular Hemoglobin 27.2 pg (28.0-34.0); Mean Corpuscular Volume 89.6 fL (81-99); Mean Platelet Volume 10.2 fL (7.4-10.4); Monocytes # 0.3 10^3/uL (0.2-0.9); Neutrophils # 4.2 10^3/uL (1.8-7.7); Neutrophils % 85.8 %; Nucleated Red Blood Cells % 0 %; Platelet Count 162 10^3/cmm (130-400); Red Cell Distribution Width 17.1 % (12.1-15.1); White Blood Count 4.9 10^3/uL (4.0-10.0)
[2019-08-12 17:16] LABS: Alanine Aminotransferase 9 U/L (0-33); Albumin Level 3.1 g/dL (3.5-5.2); Alkaline Phosphatase 53 IU/L (35-105); Anion Gap 16.9 (5-19); Aspartate Amino Transferase 11 U/L (0-32); Blood Urea Nitrogen 30 mg/dL (8-23); Calcium 7.9 mg/dL (8.5-10.5); Carbon Dioxide 29 mmol/L (22-29); Chloride 97 mmol/L (98-107); Creatinine Clr Calc Pharmacy 24.2439; Globulin 2.7 g/dL (1.3-4.6); Glucose 123 mg/dL (65-115); Osmolality Calculated 286 mOsm/kg (285-295); Potassium 3.9 mmol/L (3.5-5.1); Sodium 139 mmol/L (136-145); Total Bilirubin 0.4 mg/dL (0.15-1.2); Total Protein 5.8 g/dL (6.6-8.7)
[2019-08-12] MEDS: morphine 4 mg/mL SDV 1 mL 2 MG IVP (17:30)
--- NOTE | 2019-08-12 18:35 | PM.HP ---
Providers/Chief Complaint Primary Care Provider: Viktor Baker MD Chief Complaint: LOW HGB / GENERAL WEAKNESS History of Present Illness Michelle Becerra is a 74 year old female with a past medical history of chronic diastolic congestive heart failure, recent history of coronary angiogram which showed normal coronary arteries, history of basilic vein venous thromboembolism in April 2019 on Eliquis, type 2 diabetes mellitus, hypothyroidism, status post thyroidectomy due to thyroid cancer, hypertension, GEOVANNI, GERD, who has had multiple hospital admissions in the last 3 months, chronically ill. According to long term, she is alert oriented x3, does have episodes of confusion, does have early form of dementia, is a two-person assist, can feed herself. According to the long term, patient has been feeling weak for the last few days, looked more pale, poor appetite, they yaron a hemoglobin it was 7.0 so she was brought to [facility]. Patient states that she does not know why she is here, she stated that the long term sent her over here, but does say for the last few weeks, she is felt more weak, much more pale, poor appetite, feels lightheaded, denies bloody stools, denies black stools, does state that she had a colonoscopy many years ago but cannot remember the results, cannot remember if she had an EGD. Denies chest pain, palpitations, shortness of breath, does have lightheadedness and dizziness, has a poor appetite, no weight loss. Review of Systems Const: Denies: fever(s), chills, fatigue or malaise Eyes: Denies: change in vision or blurry vision ENMT: Denies: nasal congestion Card: Reports: lightheadedness; Denies: chest pain, palpitations, irregular heart rhythm or syncope Resp: Denies: dyspnea, productive cough, non-productive cough or wheezing GI: Denies: abdominal pain, nausea, vomiting, hematemesis, diarrhea, constipation, hematochezia or melena : Denies: flank pain, dysuria or urinary frequency Musc: Denies: neck pain or back pain Skin/Breast: Denies: rash Neuro: Denies: headache(s), dizziness or vertigo Psych: Denies: anxiety or depression Endo: Denies: polyuria or polydipsia Medications/Allergies Home Medications Medication Instructions Recorded Confirmed Last Taken Type Januvia 100 mg PO DAILY 30 Days #30 tab 02/21/20 05/05/20 05/01/20 Rx acetaminophen 650 mg PO Q6H PRN #30 tab 05/20/19 08/02/19 Unknown Rx fenofibrate 48 mg PO DAILY 30 Days #30 tab 05/20/19 08/02/19 07/29/19 Rx levothyroxine 175 mcg PO DAILY 30 Days #30 tab 05/20/19 08/02/19 07/29/19 Rx omeprazole 40 mg PO DAILY 30 Days #30 tab 05/20/19 08/02/19 07/29/19 Rx albuterol sulfate 2.5 mg/0.5 mL 2.5 mg INHALATION Q6H PRN each 06/30/19 08/02/19 Unknown History solution for nebulization cyanocobalamin (vitamin B-12) 500 1,000 mcg PO DAILY 06/30/19 08/02/19 07/29/19 History mcg tablet folic acid 1 mg tablet 1 mg PO DAILY 06/30/19 08/02/19 07/29/19 History metoprolol tartrate 25 mg tablet 25 mg PO BID 06/30/19 08/02/19 07/29/19 History potassium chloride 20 mEq 10 meq PO BID 06/30/19 08/02/19 07/29/19 History tablet,extended release albuterol sulfate 90 mcg/actuation 2 puff INHALATION Q6H PRN 07/06/19 08/02/19 Unknown History aerosol inhaler umeclidinium 62.5 mcg-vilanterol 1 inh INHALATION DAILY 07/06/19 08/02/19 07/25/19 History 25 mcg/actuation powdr for inhalation Myrbetriq 25 mg PO DAILY 07/11/19 08/02/19 07/29/19 History polyethylene glycol 3350 [Miralax] 17 g PO DAILY PRN 07/11/19 08/02/19 07/25/19 History furosemide [Lasix] 80 mg PO BID #60 tab 07/15/19 08/02/19 07/29/19 Rx apixaban 5 mg tablet 5 mg PO BID #180 tab 07/25/19 08/02/19 07/29/19 Rx magnesium oxide 400 mg PO BID #60 cap 07/25/19 08/02/19 07/29/19 Rx nitroglycerin 0.4 mg SUBLINGUAL Q5M PRN 07/26/19 08/02/19 Unknown History calcium carbonate 600 mg PO BID 08/02/19 08/02/19 Unknown History fenofibrate 40 mg PO DAILY 08/02/19 08/02/19 Unknown History aspirin 162 mg PO DAILY #30 tab 08/05/19 Unknown Rx atorvastatin 40 mg PO BEDTIME #30 tab 08/05/19 Unknown Rx sodium chloride 2 g PO BID #120 tab 08/05/19 Unknown Rx Allergies Allergy/AdvReac Type Severity Reaction Status Date / Time methylprednisolone Allergy ALGY-Rash Verified 08/12/19 16:01 [From Solu-Medrol] piperacillin [From Zosyn] Allergy ALGY-Rash Verified 08/12/19 16:01 tazobactam [From Zosyn] Allergy ALGY-Rash Verified 08/12/19 16:01 PFSH Acute PFSH: Medical History Acute respiratory failure with hypoxia -Required intubation following CODE BLUE, extubated on 05/14 -on diuresis due to anasarca; switch to oral diuretics -Has Mann catheter in place, continue to monitor urine output; removal today -off antibiotic treatment; had been on vancomycin and Levaquin; has noted allergy to Zosyn -CXR (05/18) shows resolution of pneumonia -Echo: EF=64%, no RWMA, G1DD, mild MR, trace AR -afebrile x >24 hrs, vital signs otherwise stable; continue to monitor -continue to monitor renal function, lytes with diuresis -continue to monitor Is & Os, daily weights -telemetry monitoring -sputum cx: mixed nicho; gram stain negative, noted WBCs -blood cx: prelim negative -continue to monitor respiratory status closely -supplemental oxygen as needed -Neb treatments as needed -noted D-dimer elevation, negative PE, negative DVT -very low suspicion for possible aspiration but if continued fever and/or hemodynamic instability may need to include anaerobic coverage; not needed CAD (coronary artery disease) Coronaries appeared normal on angiogram Hypertension Hypothyroidism Well-controlled Lymphedema Macrocytic anemia -has chronic macrocytic anemia; has evidence of vitamin B12 and folate deficiency -replacing vitamin B12, folate -also noted evidence of low iron though ferritin is normal -had reported black stools -baseline Hg is around 11; continue to monitor H/H closely; has been gradually trending down -on PPI Non-insulin dependent type 2 diabetes mellitus NSTEMI (non-ST elevated myocardial infarction) -Noted to have significantly elevated troponins with a delta over 90 which may have precipitated code -Given current need for continued ventilator support, will continue medical management, was already started on a heparin drip, statin, full dose aspirin and Plavix; d/c heparin drip -No acute ischemic changes noted on EKG -Echo done previously as noted below with no noted regional wall motion abnormalities -Continue telemetry monitoring -Cardiology consult by Dr. Turner appreciated; will need outpatient stress testing Surgical History H/O thyroidectomy History of ankle surgery S/P cholecystectomy Family History Other Breast cancer CAD (coronary artery disease) Diabetes Hypertension Social History Smoking and tobacco status: former smoker Quit status (tobacco): has quit using tobacco Former quit date comment: Smoked briefly in her teens. Alcohol intake: never Lives independently: Yes Household members: none Housing: Apartment Current occupational status: disabled History of recent travel: No Current gender identity: Female Vitals/I&O/Wt Last Vital Signs Pulse 76 08/12/19 17:32 BP 100/50 08/12/19 17:32 Pulse Ox 100 08/12/19 17:32 Weight last 48 hrs Weight 90.718 kg Physical Exam Const: COMMON NORMALS: no acute distress and patient oriented x3 GENERAL APPEARANCE: cooperative and comfortable HENMT: COMMON NORMALS: normocephalic HEAD & SCALP: normocephalic Eye: COMMON NORMALS: Equal, round and reactive pupils present and EOMs intact bilaterally PUPIL: Yes Equal, round and reactive pupils present DIRECT OPHTHALMOSCOPY: Yes no papilledema OTHER: Conjunctival pallor Neck/C-Spine: COMMON NORMALS: full ROM, no lymphadenopathy, no JVD and Thyroid normal THYROID: Thyroid normal Lymph: LYMPHATIC: no lymphadenopathy noted Resp: COMMON NORMALS: normal respiratory effort, No retractions, No use of accessory muscles and clear to auscultation bilaterally AUSCULTATION: clear to auscultation bilaterally Cardio: COMMON NORMALS: no JVD, regular rate, regular rhythm, S1 normal heart sound present, S2 normal heart sound present, No gallops present (Cardio), No clicks present (Cardio) and No murmurs present (Cardio) RATE: regular rate RHYTHM: regular rhythm HEART SOUNDS: S1 normal heart sound present and S2 normal heart sound present GI: COMMON NORMALS: Normal to inspection, nondistended, normoactive bowel sounds present, Soft to palpation, non-tender and No hepatosplenomegaly present PALPATION: Yes Soft to palpation and Yes No hepatosplenomegaly present Extremity: COMMON NORMALS: normal to inspection, full ROM and no pedal edema Neuro: COMMON NORMALS: patient oriented x3, CN's II-XII intact bilaterally, moves all extremities and no focal motor deficits Psych: COMMON NORMALS: mental status grossly normal, Normal thought process present and cooperative THOUGHT PROCESS: Normal thought process present Data : 08/12/19 16:20 08/12/19 16:20 A&P Assessment and plan (1) GI bleed: -Has a chronic history of anemia -I cannot see any recent EGD or colonoscopy -Patient is on Eliquis for an upper extremity DVT, right basilic vein at PICC line insertion site, diagnosed on April 2019 -Has evidence of B12 and folate deficiency, in the past, not on replacement currently -Is on aspirin 162 mg daily Had a unremarkable coronary angiogram in June 2019, she was put on aspirin 162 for vertigo concerning for CVA on her discharge July 20192019 -Had reported black stools in the past, denies any currently -Has chronic anemia, she has been as low as 7.4 in the past, but in April 2019 her hemoglobin was within normal limits hemoglobin 6.8, BUN 30 -GI bleed secondary to Eliquis and or aspirin -Currently hemodynamically stable, looks fairly pale, has conjunctival pallor Plan: -Admit to ICU for closer monitoring -She will be transfused 2 unit PRBC -Serial hemoglobins every 4 hours after transfusion -Monitor hemodynamics closely -Keep n.p.o. -Protonix 40 IV twice daily -If patient's hemoglobin continues to drop we will add Carafate -Folate, B12 studies pending -Patient had a CT scan in April of this year had no acute intra-abdominal pathology, no large abdominal malignancy -We will repeat an ultrasound of the right upper extremity, to see if her basilic vein DVT has resolved, if it has resolved we will stop Eliquis, if blood clot is still present, anticoagulation is quite controversial depending on which society you read, and [place] generally recommends anticoagulation associated with central line placement, but is worthwhile to see if the blood clot is extending towards the axilla, and if so, there is increased evidence of anticoagulation -Is on aspirin 162 mg for concerns for vertigo secondary to CVA, will likely discharge on aspirin 81 mg once daily I spoke to Dr. Sapp of the case, he agrees to hold aspirin, Eliquis, no plans for EGD currently, but if patient's hemoglobin continues to to drop despite blood transfusion, agrees to perform EGD Status: Acute (2) DVT (deep venous thrombosis): -We will repeat ultrasound Status: Acute Qualifiers: DVT location: upper extremity Affected thrombotic vein of extremity: other upper extremity vein Chronicity: unspecified Laterality: right Qualified Code(s): I82.621 - Acute embolism and thrombosis of deep veins of right upper extremity (3) Congestive heart failure: Carefully hydrate Status: Acute Qualifiers: Heart failure chronicity: unspecified Heart failure type: unspecified Qualified Code(s): I50.9 - Heart failure, unspecified (4) CAD (coronary artery disease): Normal coronary arteries in June 2019 Status: Acute Qualifiers: Coronary Disease-Associated Artery/Lesion type: [place] artery [place] vs. transplanted heart: [place] heart Associated angina: with unstable angina Qualified Code(s): I25.110 - Atherosclerotic heart disease of [place] coronary artery with unstable angina pectoris (5) Fall: Status: Acute Qualifiers: Encounter type: initial encounter Qualified Code(s): W19.XXXA - Unspecified fall, initial encounter (6) Vertigo: -Concerns for stroke, is on aspirin 162 mg -We will likely decrease to aspirin 81 mg on discharge Status: Acute (7) Normocytic anemia: Status: Acute (8) Acute kidney injury: -Creatinine up to 2.1, IV hydration Status: Acute (9) Lymphedema: Status: Acute (10) Non-insulin dependent type 2 diabetes mellitus: Low-dose sliding scale Status: Acute (11) Hypertension: Labetalol PRN Status: Acute Qualifiers: Hypertension type: essential hypertension Qualified Code(s): I10 - Essential (primary) hypertension (12) Hypothyroidism: Levothyroxine 88 mcg daily IV Status: Acute Qualifiers: Hypothyroidism type: postoperative Qualified Code(s): E89.0 - Postprocedural hypothyroidism Additional A&P Information Full code SCDs for DVT prophylaxis, pharmacologic anticoagulation contraindicated Attestations Medical Necessity Statement*: Requires hospitalization, inpatient, ICU mission, greater than 2 midnights, for GI bleed Coding Level of Care Code Acute Geosciences Professor for Chg Fwd Diagnoses GI bleed K92.2 DVT (deep venous thrombosis) I82.621 DVT location: upper extremity Affected thrombotic vein of extremity: other upper extremity vein Chronicity: unspecified Laterality: right Congestive heart failure I50.9 Heart failure chronicity: unspecified Heart failure type: unspecified CAD (coronary artery disease) I25.110 Coronary Disease-Associated Artery/Lesion type: [place] artery [place] vs. transplanted heart: [place] heart Associated angina: with unstable angina Fall W19.XXXA Encounter type: initial encounter Vertigo R42 Normocytic anemia D64.9 Acute kidney injury N17.9 Lymphedema I89.0 Non-insulin dependent type 2 diabetes mellitus E11.9 Hypertension I10 Hypertension type: essential hypertension Hypothyroidism E89.0 Hypothyroidism type: postoperative
[2019-08-12] MEDS: sodium chloride 0.9% (100 ml) 100 ML 50 ML (19:24)
[2019-08-12 19:43] LABS: Blood Urine Neg (Negative); Glucose Urine UA Norm (Normal); Ketones Urine Negative (Negative); Nitrate Urine Positive (Negative); Protein Urine Neg (Negative); Specific Gravity, Urine 1.005 (1.005-1.030); Urine Appearance Cloudy (CLEAR); Urine Color Yellow (Yellow); pH Urine 6 (5-7)
[2019-08-12 19:44] LABS: Add Urine Culture? Yes; Add Urine Microscopic? YES; Bacteria Urine 3+; Bilirubin Urine Neg (NEGATIVE); Leukocyte Esterase Urine 1+ (Negative); Urobilinogen Urine Neg (Negative); WBC Urine 25-40 /hpf (0-5)
[2019-08-12] MEDS: dextrose 5%-sod chloride 0.45% 1,000 ML 50 ML IV (22:51)
[2019-08-12] MEDS: pantoprazole 40 mg SDV IVP (22:52)
[2019-08-12 23:41] LABS: INR 1.54 (0.8-1.2)
[2019-08-13] VITALS (34 sets, daily range): BP systolic 89–127; BP diastolic 43–66; PULSE 62–83; RESP 12–28; TEMP 36.8–37.1; O2SAT 91–100
[2019-08-13 00:13] LABS: Ferritin 298 ng/mL (15-150); Iron 46 ug/dL (37-145); Total Iron Binding Capacity 191 mcg/dl; Unsaturated Iron Binding 145 ug/dL (112-347); Vitamin B12 775 pg/mL (232-1245)
[2019-08-13 00:29] LABS: Folate Level > 20.0 ng/mL (4.8-37.3)
[2019-08-13] MEDS: sodium chloride 0.9% (100 ml) 100 ML 125 ML (00:45)
[2019-08-13] MEDS: morphine 4 mg/mL SDV 1 mL 2 MG IVP ×3 (04:00→19:59)
[2019-08-13 04:58] LABS: INR 1.33 (0.8-1.2)
[2019-08-13 05:04] LABS: Lactic Sepsis W/Reflex 0.9 mmol/L (0.5-2.2)
[2019-08-13 05:05] LABS: Alanine Aminotransferase 8 U/L (0-33); Albumin Level 2.6 g/dL (3.5-5.2); Alkaline Phosphatase 47 IU/L (35-105); Anion Gap 16.5 (5-19); Aspartate Amino Transferase 10 U/L (0-32); Blood Urea Nitrogen 26 mg/dL (8-23); Calcium 7.5 mg/dL (8.5-10.5); Carbon Dioxide 28 mmol/L (22-29); Chloride 101 mmol/L (98-107); Globulin 2.8 g/dL (1.3-4.6); Glucose 98 mg/dL (65-115); Magnesium 2.1 mg/dL (1.7-2.3); Osmolality Calculated 291 mOsm/kg (285-295); Potassium 3.5 mmol/L (3.5-5.1); Sodium 142 mmol/L (136-145); Total Bilirubin 0.4 mg/dL (0.15-1.2); Total Protein 5.4 g/dL (6.6-8.7)
[2019-08-13 05:11] LABS: Basophils % 0.4 %; Eosinophils # 0.1 10^3/uL (0.0-0.8); Eosinophils % 1.4 %; Hematocrit 28.1 % (37.0-47.0); Hemoglobin 8.8 g/dL (11.5-15.3); Lymphocytes # 0.3 10^3/uL (0.8-4.8); Lymphocytes % 5.7 %; Mean Corpuscular HGB Conc 31.3 g/dL (30.0-36.0); Mean Corpuscular Hemoglobin 27.7 pg (28.0-34.0); Mean Corpuscular Volume 88.4 fL (81-99); Mean Platelet Volume 10.3 fL (7.4-10.4); Monocytes # 0.3 10^3/uL (0.2-0.9); Monocytes % 6.4 %; Neutrophils # 4.2 10^3/uL (1.8-7.7); Neutrophils % 85.3 %; Nucleated Red Blood Cells % 0 %; Platelet Count 128 10^3/cmm (130-400); Red Blood Count 3.18 10^6/uL (4.1-5.3); Red Cell Distribution Width 15.4 % (12.1-15.1); White Blood Count 4.9 10^3/uL (4.0-10.0)
[2019-08-13 07:17] LABS: Glucose Point of Care 104 mg/dL (70-110)
[2019-08-13] MEDS: pantoprazole 40 mg SDV IVP ×2 (08:20→17:50)
[2019-08-13] MEDS: levothyroxine 100 mcg SDV 88 MCG IVP (08:20)
[2019-08-13 08:56] LABS: Hematocrit 28.8 % (37.0-47.0); Hemoglobin 9.1 g/dL (11.5-15.3)
--- NOTE | 2019-08-13 10:14 | PM.PN ---
Subjective Subjective: Interval history: Labs, vitals, H&P noted. No acute events overnight. Patient received 2 units of blood transfusion. Denies of having any nausea, vomiting, headache, diarrhea. Complaining of low back pain. Vitals/I&O/Wt Last Vital Signs Temp 98.3 F 08/13/19 08:00 Pulse 62 08/13/19 09:00 Resp 12 08/13/19 09:00 BP 98/59 08/13/19 09:00 Pulse Ox 97 08/13/19 09:00 08/12/19 08/13/19 08/13/19 22:59 06:59 14:59 Intake Total 0 / 0 900 / 900 Balance 0 / 0 900 / 900 Weight last 48 hrs Weight 90.718 kg Physical Exam Narrative: EXAM NARRATIVE: General: No acute distress, AO x3, dehydrated HEENT: PERRLA, pupils bilaterally equal and reactive Chest: Normal vesicular breath sounds, no added sounds, equal good air entry bilaterally CVS: S1-S2 regular, no murmurs, no tachycardia, no gallops, no rubs Abdomen: Soft, nontender, no organomegaly, bowel sounds present Neuro: No focal deficits, no facial deformity, AO x3, power 5/5 in all limbs Data : 08/13/19 08:50 08/13/19 04:40 A&P Assessment and plan (1) GI bleed: Status: Acute (2) DVT (deep venous thrombosis): -We will repeat ultrasound Status: Acute Qualifiers: Affected thrombotic vein of extremity: other upper extremity vein Chronicity: unspecified DVT location: upper extremity Laterality: right Qualified Code(s): I82.621 - Acute embolism and thrombosis of deep veins of right upper extremity (3) Congestive heart failure: Status: Acute Qualifiers: Heart failure chronicity: unspecified Heart failure type: unspecified Qualified Code(s): I50.9 - Heart failure, unspecified (4) CAD (coronary artery disease): Normal coronary arteries in June 2019 Status: Acute Qualifiers: Associated angina: with unstable angina Coronary Disease-Associated Artery/Lesion type: [place] artery [place] vs. transplanted heart: [place] heart Qualified Code(s): I25.110 - Atherosclerotic heart disease of [place] coronary artery with unstable angina pectoris (5) Fall: Status: Acute Qualifiers: Encounter type: initial encounter Qualified Code(s): W19.XXXA - Unspecified fall, initial encounter (6) Vertigo: Status: Acute (7) Normocytic anemia: Status: Acute (8) Acute kidney injury: Status: Acute (9) Lymphedema: Status: Acute (10) Non-insulin dependent type 2 diabetes mellitus: Low-dose sliding scale Status: Acute (11) Hypertension: Labetalol PRN Status: Acute Qualifiers: Hypertension type: essential hypertension Qualified Code(s): I10 - Essential (primary) hypertension (12) Hypothyroidism: Status: Acute Qualifiers: Hypothyroidism type: postoperative Qualified Code(s): E89.0 - Postprocedural hypothyroidism Additional A&P Information Anemia: GI bleed: Patient is on Eliquis for upper extremity DVT in right basilic vein due to a PICC line insertion since April 2019. Patient is on aspirin 162 mg for a possible CVA due to vertigo since May 2019. Post 2 units PRBC. Hemoglobin stable at 9.1 today. No melena, black-colored stool still admission. We will continue monitoring in ICU. We will check H&H in 12 hours at 6 PM. Continue holding Eliquis, aspirin. We will advance to clear liquid diet and see how she does. Protonix 40 mg IV twice daily. Stop IV fluids. Start patient on oral iron supplementation. Iron studies consistent with anemia of chronic disease and iron deficiency anemia. Start patient on oral iron supplementation. Continue with oral vitamin B12 supplementation Upper limb DVT: Doppler ordered but awaited. History of thrombosis in cephalic vein. Mostly patients need treatment for around 3 months. Patient's treatment should be ending in July. Most likely patient will not need Eliquis at discharge. Vertigo: There is a concern of stroke in the past but she had declined assessment by MRI and CT head was negative for any major abnormality with left ICA showing 16 to 49% stenosis. Patient is on aspirin 162 mg daily. Most likely will discharge patient on aspirin 81 mg. Continue high-dose statin. CAD/congestive heart failure: Normal coronaries in June 2019. Last echocardiogram in April shows EF of 64% with grade 1 diastolic dysfunction. Euvolemic right now. Stop IV fluids. DELLA: Creatinine 2. Baseline creatinine seems to be ranging from 1.6-2. Medically consider medical reconciliation done for nephrotoxic drugs. Continue to monitor BMP daily. Restart chronic home medications like levothyroxine, vitamin B12, magnesium oxide. Full code SCDs for DVT prophylaxis, pharmacologic anticoagulation contraindicated. Clear liquid diet. If patient continues to do well can plan to transfer to [facility] floor later in the day today. Attestations Medical Necessity Statement*: Acute blood loss anemia secondary to GI bleed while on anticoagulation. Time Spent in Patient Care: Greater than 35 minutes Coding Level of Care Code Acute It Application Development Manager for g Fwd Diagnoses GI bleed K92.2 DVT (deep venous thrombosis) I82.621 Affected thrombotic vein of extremity: other upper extremity vein Chronicity: unspecified DVT location: upper extremity Laterality: right Congestive heart failure I50.9 Heart failure chronicity: unspecified Heart failure type: unspecified CAD (coronary artery disease) I25.110 Associated angina: with unstable angina Coronary Disease-Associated Artery/Lesion type: [place] artery [place] vs. transplanted heart: [place] heart Fall W19.XXXA Encounter type: initial encounter Vertigo R42 Normocytic anemia D64.9 Acute kidney injury N17.9 Lymphedema I89.0 Non-insulin dependent type 2 diabetes mellitus E11.9 Hypertension I10 Hypertension type: essential hypertension Hypothyroidism E89.0 Hypothyroidism type: postoperative
[2019-08-13] MEDS: calcium carbonate 500 mg Chew Tablet PO ×2 (10:39→21:29)
[2019-08-13] MEDS: cefTRIAXone 1,000 MG in sodium chloride 0.9% (plus) 50 ML 100 MG IV (10:39)
[2019-08-13 11:46] LABS: Glucose Point of Care 112 mg/dL (70-110)
[2019-08-13] MEDS: ipratropium-albuterol 3 mL Neb INHALATION (14:32)
[2019-08-13 16:58] LABS: Glucose Point of Care 107 mg/dL (70-110)
[2019-08-13] MEDS: sodium chloride 1 gm Tablet PO (17:50)
[2019-08-13] MEDS: metoprolol tartrate 25 mg Tablet PO (17:50)
[2019-08-13 18:37] LABS: Hematocrit 29.4 % (37.0-47.0); Hemoglobin 9.4 g/dL (11.5-15.3)
--- NOTE | 2019-08-13 21:14 | USR_ITS ---
PROCEDURE INFORMATION: Exam: US Duplex Right Upper Extremity Veins, Limited Exam date and time: 08/13/2019 7:02 AM Age: 74 years old Clinical indication: Condition or disease; Phlebitis and thrombophlebitis; Superficial vessels of upper extremity; Right; Additional info: Evalaute for dvt at picc site TECHNIQUE: Imaging protocol: Real-time Duplex ultrasound of the Right Upper Extremity with 2-D mccoy scale, color Doppler flow and spectral waveform analysis with image documentation. Limited exam focused on the right upper extremity veins. COMPARISON: No relevant prior studies available. FINDINGS: Right deep veins: Unremarkable. Axillary and brachial veins are patent throughout without thrombus. Normal Doppler waveforms. Normal compressibility and/or augmentation response. Visualized internal jugular and subclavian veins are patent. Right superficial veins: Nonocclusive thrombus of the right cephalic vein distally. There is incomplete compression. Soft tissues: Unremarkable. US/[place] [id number] IMPRESSION: Partially occluding venous thrombosis right cephalic vein distally.
[2019-08-13] MEDS: atorvastatin 40 mg Tablet PO (21:29)
[2019-08-14] VITALS (14 sets, daily range): BP systolic 99–123; BP diastolic 49–65; PULSE 63–84; RESP 16–21; TEMP 36.6–38.1; O2SAT 95–99
[2019-08-14] MEDS: ipratropium-albuterol 3 mL Neb INHALATION ×4 (00:08→21:46)
[2019-08-14 05:59] LABS: Basophils % 0.1 %; Eosinophils % 0.3 %; Hemoglobin 8.8 g/dL (11.5-15.3); Lymphocytes # 0.2 10^3/uL (0.8-4.8); Lymphocytes % 3.3 %; Mean Corpuscular HGB Conc 31.4 g/dL (30.0-36.0); Mean Corpuscular Hemoglobin 27.6 pg (28.0-34.0); Mean Corpuscular Volume 87.8 fL (81-99); Mean Platelet Volume 9.7 fL (7.4-10.4); Monocytes # 0.3 10^3/uL (0.2-0.9); Monocytes % 4.9 %; Neutrophils # 6.3 10^3/uL (1.8-7.7); Nucleated Red Blood Cells % 0 %; Platelet Count 162 10^3/cmm (130-400); Red Blood Count 3.19 10^6/uL (4.1-5.3); Red Cell Distribution Width 16.1 % (12.1-15.1); White Blood Count 6.9 10^3/uL (4.0-10.0)
[2019-08-14 06:23] LABS: Alanine Aminotransferase 7 U/L (0-33); Albumin Level 2.5 g/dL (3.5-5.2); Alkaline Phosphatase 48 IU/L (35-105); Anion Gap 14.8 (5-19); Aspartate Amino Transferase 11 U/L (0-32); Blood Urea Nitrogen 23 mg/dL (8-23); Calcium 7.2 mg/dL (8.5-10.5); Carbon Dioxide 27 mmol/L (22-29); Chloride 99 mmol/L (98-107); Globulin 2.6 g/dL (1.3-4.6); Glucose 114 mg/dL (65-115); Osmolality Calculated 282 mOsm/kg (285-295); Potassium 3.8 mmol/L (3.5-5.1); Sodium 137 mmol/L (136-145); Total Bilirubin 0.5 mg/dL (0.15-1.2); Total Protein 5.1 g/dL (6.6-8.7)
[2019-08-14 06:52] LABS: Glucose Point of Care 104 mg/dL (70-110)
--- NOTE | 2019-08-14 08:34 | PC.NURSE ---
Patient daughter Kelsey called with request to find out patient current vital signs and status. Kelsey request for patient to be transferred to [facility]. Doctor Jose Ramon notified.
[2019-08-14] MEDS: metoprolol tartrate 25 mg Tablet PO ×2 (08:42→18:43)
[2019-08-14] MEDS: ferrous sulfate EC 325 mg Tablet PO ×2 (08:42→18:44)
[2019-08-14] MEDS: levothyroxine 25 mcg Tablet PO (08:43)
[2019-08-14] MEDS: cyanocobalamin 1,000 mcg Tablet 1000 MCG PO (08:43)
[2019-08-14] MEDS: levothyroxine 150 mcg Tablet PO (08:43)
[2019-08-14] MEDS: fenofibrate 48 mg Tablet PO (08:43)
[2019-08-14] MEDS: sodium chloride 1 gm Tablet PO ×2 (08:43→18:43)
[2019-08-14] MEDS: pantoprazole 40 mg SDV IVP ×2 (08:44→18:49)
[2019-08-14] MEDS: calcium carbonate 500 mg Chew Tablet PO ×2 (08:45→21:37)
[2019-08-14] MEDS: cefTRIAXone 1,000 MG in sodium chloride 0.9% (plus) 50 ML 100 MG IV (10:15)
[2019-08-14 10:59] LABS: Glucose Point of Care 155 mg/dL (70-110)
--- NOTE | 2019-08-14 14:27 | P.PN_ITS ---
Subjective Subjective: Interval history: No acute events overnight. Patient has not had any bowel movements. Is passing flatus. Denies of having any nausea, vomiting, abdominal pain. Patient is a lot more awake today. Vitals/I&O/Wt Last Vital Signs Temp 98.5 F 08/14/19 11:26 Pulse 63 08/14/19 11:26 Resp 19 H 08/14/19 11:26 BP 102/61 08/14/19 11:26 Pulse Ox 99 08/14/19 11:26 08/13/19 08/14/19 08/14/19 22:59 06:59 14:59 Intake Total 600 / 1687.5 540 / 540 Balance 600 / 1487.5 540 / 540 Weight last 48 hrs Weight 90.718 kg Physical Exam Narrative: EXAM NARRATIVE: General: No acute distress, AO x3, dehydrated HEENT: PERRLA, pupils bilaterally equal and reactive Chest: Normal vesicular breath sounds, no added sounds, equal good air entry bilaterally CVS: S1-S2 regular, no murmurs, no tachycardia, no gallops, no rubs Abdomen: Soft, nontender, no organomegaly, bowel sounds present Neuro: No focal deficits, no facial deformity, AO x3, power 5/5 in all limbs Data : 08/14/19 05:52 08/14/19 05:52 Micro: Microbiology 08/12/19 19:07 Urine Culture - Preliminary Urine,Clean Catch Gram Negative Rods A&P Assessment and plan (1) GI bleed: Status: Acute (2) DVT (deep venous thrombosis): Status: Acute Qualifiers: DVT location: upper extremity Affected thrombotic vein of extremity: other upper extremity vein Chronicity: unspecified Laterality: right Qualified Code(s): I82.621 - Acute embolism and thrombosis of deep veins of right upper extremity (3) Congestive heart failure: Status: Acute Qualifiers: Heart failure chronicity: unspecified Heart failure type: unspecified Qualified Code(s): I50.9 - Heart failure, unspecified (4) CAD (coronary artery disease): Normal coronary arteries in June 2019 Status: Acute Qualifiers: Coronary Disease-Associated Artery/Lesion type: [place] artery [place] vs. transplanted heart: [place] heart Associated angina: with unstable angina Qualified Code(s): I25.110 - Atherosclerotic heart disease of [place] coronary artery with unstable angina pectoris (5) Fall: Status: Acute Qualifiers: Encounter type: initial encounter Qualified Code(s): W19.XXXA - Unspecified fall, initial encounter (6) Vertigo: Status: Acute (7) Normocytic anemia: Status: Acute (8) Acute kidney injury: Status: Acute (9) Lymphedema: Status: Acute (10) Non-insulin dependent type 2 diabetes mellitus: Low-dose sliding scale Status: Acute (11) Hypertension: Labetalol PRN Status: Acute Qualifiers: Hypertension type: essential hypertension Qualified Code(s): I10 - Essential (primary) hypertension (12) Hypothyroidism: Status: Acute Qualifiers: Hypothyroidism type: postoperative Qualified Code(s): E89.0 - Postprocedural hypothyroidism (13) UTI (urinary tract infection): Status: Acute Additional A&P Information Anemia: GI bleed: Patient is on Eliquis for upper extremity DVT in right basilic vein due to a PICC line insertion since April 2019. Patient is on aspirin 162 mg for a possible CVA due to vertigo since May 2019. Post 2 units PRBC. Hemoglobin stable. No melena, black-colored stool still admission. CBC daily. Continue holding Eliquis, aspirin. Plan is to discontinue Eliquis as patient has finished 3-month course moreover thrombosis was on cephalic vein. Patient will hold aspirin for 2 more weeks after discharge and will start on 81 mg after that. We will advance to GI soft diet. Protonix 40 mg IV twice daily. Continue with oral iron supplementation. Iron studies consistent with anemia of chronic disease and iron deficiency anemia. Continue with oral vitamin B12 supplementation Upper limb DVT: Doppler shows distal cephalic vein thrombosis. Does not mention about extension into axilla History of thrombosis in cephalic vein. Mostly patients need treatment for around 3 months. Patient's treatment should be ending in July. No Eliquis on discharge. Vertigo: There is a concern of stroke in the past but she had declined assessment by MRI and CT head was negative for any major abnormality with left ICA showing 16 to 49% stenosis. Patient is on aspirin 162 mg daily. Most likely will discharge patient on aspirin 81 mg. Continue high-dose statin. UTI: UA on admission consistent with UTI. Most likely the cause of her back pain. Urine culture growing gram-negative rods. Continue with Rocephin for now. Day 2 of treatment. We will de-escalate antibiotics most likely to an oral supplementation after urine culture results tomorrow. CAD/congestive heart failure: Normal coronaries in June 2019. Last echocardiogram in April shows EF of 64% with grade 1 diastolic dysfunction. Euvolemic right now. DELLA: Creatinine 2. Baseline creatinine seems to be ranging from 1.6-2. Medically consider medical reconciliation done for nephrotoxic drugs. Continue to monitor BMP daily. Restart chronic home medications like levothyroxine, vitamin B12, magnesium oxide. Full code SCDs for DVT prophylaxis, pharmacologic anticoagulation contraindicated. GI soft diet. Attestations Medical Necessity Statement*: Anemia due to GI bleed, UTI Time Spent in Patient Care: Greater than 35 minutes Coding Level of Care Code Acute Production Operator for [facility] Fwd Diagnoses GI bleed K92.2 DVT (deep venous thrombosis) I82.621 DVT location: upper extremity Affected thrombotic vein of extremity: other upper extremity vein Chronicity: unspecified Laterality: right Congestive heart failure I50.9 Heart failure chronicity: unspecified Heart failure type: unspecified CAD (coronary artery disease) I25.110 Coronary Disease-Associated Artery/Lesion type: [place] artery [place] vs. transplanted heart: [place] heart Associated angina: with unstable angina Fall W19.XXXA Encounter type: initial encounter Vertigo R42 Normocytic anemia D64.9 Acute kidney injury N17.9 Lymphedema I89.0 Non-insulin dependent type 2 diabetes mellitus E11.9 Hypertension I10 Hypertension type: essential hypertension Hypothyroidism E89.0 Hypothyroidism type: postoperative UTI (urinary tract infection) N39.0
[2019-08-14] MEDS: dextrose 5%-sod chloride 0.45% 1,000 ML 50 ML IV (18:47)
[2019-08-14 21:28] LABS: Glucose Point of Care 113 mg/dL (70-110)
[2019-08-14] MEDS: atorvastatin 40 mg Tablet PO (21:37)
[2019-08-14] MEDS: morphine 4 mg/mL SDV 1 mL 2 MG IVP (21:37)
[2019-08-15] VITALS (8 sets, daily range): BP systolic 111–124; BP diastolic 65–69; PULSE 68–80; RESP 16–18; TEMP 36.4–36.5; O2SAT 96–100
--- NOTE | 2019-08-15 02:14 | PC.NURSE ---
Patient requests to lay on her back or left side only when changing positions.
[2019-08-15] MEDS: ipratropium-albuterol 3 mL Neb INHALATION ×3 (02:21→14:40)
[2019-08-15 06:21] LABS: Basophils % 0.2 %; Eosinophils % 0.6 %; Hematocrit 33.3 % (37.0-47.0); Hemoglobin 10.4 g/dL (11.5-15.3); Lymphocytes # 0.2 10^3/uL (0.8-4.8); Lymphocytes % 2.9 %; Mean Corpuscular HGB Conc 31.2 g/dL (30.0-36.0); Mean Corpuscular Hemoglobin 28.5 pg (28.0-34.0); Mean Corpuscular Volume 91.2 fL (81-99); Mean Platelet Volume 9.9 fL (7.4-10.4); Monocytes # 0.3 10^3/uL (0.2-0.9); Monocytes % 4.2 %; Neutrophils # 5.7 10^3/uL (1.8-7.7); Neutrophils % 91.6 %; Nucleated Red Blood Cells % 0 %; Platelet Count 193 10^3/cmm (130-400); Red Blood Count 3.65 10^6/uL (4.1-5.3); Red Cell Distribution Width 16.6 % (12.1-15.1); White Blood Count 6.2 10^3/uL (4.0-10.0)
[2019-08-15 06:37] LABS: Alanine Aminotransferase 9 U/L (0-33); Albumin Level 2.6 g/dL (3.5-5.2); Alkaline Phosphatase 60 IU/L (35-105); Anion Gap 19.4 (5-19); Aspartate Amino Transferase 14 U/L (0-32); Blood Urea Nitrogen 20 mg/dL (8-23); Calcium 7.7 mg/dL (8.5-10.5); Carbon Dioxide 23 mmol/L (22-29); Chloride 100 mmol/L (98-107); Globulin 3.3 g/dL (1.3-4.6); Glucose 112 mg/dL (65-115); Osmolality Calculated 285 mOsm/kg (285-295); Potassium 3.4 mmol/L (3.5-5.1); Sodium 139 mmol/L (136-145); Total Bilirubin 0.4 mg/dL (0.15-1.2); Total Protein 5.9 g/dL (6.6-8.7)
[2019-08-15 06:48] LABS: Glucose Point of Care 101 mg/dL (70-110)
[2019-08-15] MEDS: fenofibrate 48 mg Tablet PO (08:51)
[2019-08-15] MEDS: ferrous sulfate EC 325 mg Tablet PO (08:51)
[2019-08-15] MEDS: metoprolol tartrate 25 mg Tablet PO (08:52)
[2019-08-15] MEDS: calcium carbonate 500 mg Chew Tablet PO (08:52)
[2019-08-15] MEDS: levothyroxine 25 mcg Tablet PO (08:52)
[2019-08-15] MEDS: sodium chloride 1 gm Tablet PO (08:52)
[2019-08-15] MEDS: levothyroxine 150 mcg Tablet PO (08:52)
[2019-08-15] MEDS: cyanocobalamin 1,000 mcg Tablet 1000 MCG PO (08:52)
--- NOTE | 2019-08-15 11:23 | PC.SOCIAL ---
IMM Update Pg 2 of IMM updated. Initialed, dated, and timed and placed in chart. Copy provided to patient.
[2019-08-15 11:44] LABS: Glucose Point of Care 315 mg/dL (70-110)
[2019-08-15] MEDS: cefTRIAXone 1,000 MG in sodium chloride 0.9% (plus) 50 ML 100 MG IV (12:09)
--- NOTE | 2019-08-15 13:26 | P.PN_ITS ---
Subjective Subjective: Interval history: No acute events overnight. Patient had 1 or 2 bowel movements yesterday, with mild smears of blood. She is passing flatus. Denies of having abdominal pain. States she is feeling little better today. Denies of any nausea, vomiting, headache, palpitations. Urine culture suggestive of Klebsiella pneumonia. Labs and vitals noted. Vitals/I&O/Wt Last Vital Signs Temp 97.5 F L 08/15/19 11:13 Pulse 75 08/15/19 11:13 Resp 18 08/15/19 11:13 BP 112/67 08/15/19 11:13 Pulse Ox 100 08/15/19 11:13 08/14/19 08/15/19 08/15/19 22:59 06:59 14:59 Intake Total 270 / 810 340 / 1150 840 / 840 Balance 270 / 810 340 / 1150 840 / 840 Physical Exam Narrative: EXAM NARRATIVE: General: No acute distress, AO x3, dehydrated HEENT: PERRLA, pupils bilaterally equal and reactive Chest: Normal vesicular breath sounds, no added sounds, equal good air entry bilaterally CVS: S1-S2 regular, no murmurs, no tachycardia, no gallops, no rubs Abdomen: Soft, nontender, no organomegaly, bowel sounds present Neuro: No focal deficits, no facial deformity, AO x3, power 5/5 in all limbs Data : 08/15/19 06:09 08/15/19 06:09 Micro: Microbiology 08/12/19 19:07 Urine Culture - Final Urine,Clean Catch Klebsiella pneumoniae 08/12/19 23:55 Occult Blood (FIT) - Final Stool A&P Assessment and plan (1) GI bleed: Status: Acute (2) DVT (deep venous thrombosis): Status: Acute Qualifiers: DVT location: upper extremity Affected thrombotic vein of extremity: other upper extremity vein Chronicity: unspecified Laterality: right Qualified Code(s): I82.621 - Acute embolism and thrombosis of deep veins of [facility] upper extremity (3) Congestive heart failure: Status: Acute Qualifiers: Heart failure chronicity: unspecified Heart failure type: unspecified Qualified Code(s): I50.9 - Heart failure, unspecified (4) CAD (coronary artery disease): Normal coronary arteries in June 2019 Status: Acute Qualifiers: Coronary Disease-Associated Artery/Lesion type: [place] artery [place] vs. transplanted heart: [place] heart Associated angina: with unstable angina Qualified Code(s): I25.110 - Atherosclerotic heart disease of [place] coronary artery with unstable angina pectoris (5) Fall: Status: Acute Qualifiers: Encounter type: initial encounter Qualified Code(s): W19.XXXA - Unspecified fall, initial encounter (6) Vertigo: Status: Acute (7) Normocytic anemia: Status: Acute (8) Acute kidney injury: Status: Acute (9) Lymphedema: Status: Acute (10) Non-insulin dependent type 2 diabetes mellitus: Low-dose sliding scale Status: Acute (11) Hypertension: Labetalol PRN Status: Acute Qualifiers: Hypertension type: essential hypertension Qualified Code(s): I10 - Essential (primary) hypertension (12) Hypothyroidism: Status: Acute Qualifiers: Hypothyroidism type: postoperative Qualified Code(s): E89.0 - Postprocedural hypothyroidism (13) UTI (urinary tract infection): Status: Acute Additional A&P Information Anemia: GI bleed: Patient is on Eliquis for upper extremity DVT in right basilic vein due to a PICC line insertion since April 2019. Patient is on aspirin 162 mg for a possible CVA due to vertigo since May 2019. Post 2 units PRBC. Hemoglobin 10.4 today. Does not have any more bloody bowel movements. We will stop Eliquis on discharge as patient has finished 3-month course of cephalic vein thrombosis. It being superficial vein thrombosis most likely she will not need anymore treatment. We will ask her to follow-up with an ultrasound in 2 months. Patient is usually on aspirin 162 mg which was recently started for a possible stroke. We will ask her to hold off on aspirin for next 1 week to 10 days and start on 81 mg daily. Protonix p.o. 40 mg twice daily. Continue with GI soft diet. Continue with oral vitamin B12 and iron supplementations. Upper limb DVT: Doppler shows distal cephalic vein thrombosis. Does not mention about extension into axilla History of thrombosis in cephalic vein. Mostly patients need treatment for around 3 months. Patient's treatment should be ending in July. No Eliquis on discharge. Vertigo: There is a concern of stroke in the past but she had declined assessment by MRI and CT head was negative for any major abnormality with left ICA showing 16 to 49% stenosis. Patient is on aspirin 162 mg daily. Most likely will discharge patient on aspirin 81 mg. Continue high-dose statin. UTI: Urine cultures concerning for Klebsiella pneumonia. Sensitivity noted. Patient did not ceftriaxone for now. Day 3 of culture directed treatment. We will switch over to levofloxacin 750 mg tomorrow. Creatinine clearance 44. Patient will need only 1 dose of levofloxacin to finish a 5-day course for UTI. CAD/congestive heart failure: Normal coronaries in June 2019. Last echocardi ogram in April shows EF of 64% with grade 1 diastolic dysfunction. Euvolemic right now. DELLA: Creatinine baseline. Medically consider medical reconciliation done for nephrotoxic drugs. Continue to monitor BMP daily. Restart chronic home medications like levothyroxine, vitamin B12, magnesium oxid e. Full code SCDs for DVT prophylaxis, pharmacologic anticoagulation contraindicated. GI soft diet. Patient can be discharged today. Awaiting authorization from retirement. Attestations Medical Necessity Statement*: GI bleed, UTI, awaiting authorization from retirement. Time Spent in Patient Care: Greater than 35 minutes Coding Level of Care Code Acute Chief Librarian Branch for [facility] Fwd Diagnoses GI bleed K92.2 DVT (deep venous thrombosis) I82.621 DVT location: upper extremity Affected thrombotic vein of extremity: other upper extremity vein Chronicity: unspecified Laterality: right Congestive heart failure I50.9 Heart failure chronicity: unspecified Heart failure type: unspecified CAD (coronary artery disease) I25.110 Coronary Disease-Associated Artery/Lesion type: [place] artery [place] vs. transplanted heart: [place] heart Associated angina: with unstable angina Fall W19.XXXA Encounter type: initial encounter Vertigo R42 Normocytic anemia D64.9 Acute kidney injury N17.9 Lymphedema I89.0 Non-insulin dependent type 2 diabetes mellitus E11.9 Hypertension I10 Hypertension type: essential hypertension Hypothyroidism E89.0 Hypothyroidism type: postoperative UTI (urinary tract infection) N39.0
--- NOTE | 2019-08-15 14:16 | PM.DCS ---
Discharge Providers Date of Admission: 08/12/19 18:28 Date of Discharge: August 15, 2019 Attending Provider at Admission: Gagan Albright MD Attending Provider at Discharge: Kishan Riddle MD Primary Care Provider: Viktor Baker MD Diagnoses at Discharge Discharge Diagnosis (1) GI bleed: Status: Acute (2) DVT (deep venous thrombosis): Status: Acute Qualifiers: DVT location: upper extremity Affected thrombotic vein of extremity: other upper extremity vein Chronicity: unspecified Laterality: right Qualified Code(s): I82.621 - Acute embolism and thrombosis of deep veins of right upper extremity (3) Congestive heart failure: Status: Acute Problem details: April 2019: Diastolic type. EF 54% Qualifiers: Heart failure chronicity: unspecified Heart failure type: unspecified Qualified Code(s): I50.9 - Heart failure, unspecified (4) CAD (coronary artery disease): Status: Acute Problem details: Coronaries appeared normal on angiogram April 2019 Qualifiers: Coronary Disease-Associated Artery/Lesion type: [place] artery [place] vs. transplanted heart: [place] heart Associated angina: with unstable angina Qualified Code(s): I25.110 - Atherosclerotic heart disease of [place] coronary artery with unstable angina pectoris (5) Fall: Status: Acute Qualifiers: Encounter type: initial encounter Qualified Code(s): W19.XXXA - Unspecified fall, initial encounter (6) Vertigo: Status: Acute Problem details: Suspected central vertigo secondary to CVA. Unfortunately she had declined assessment by MRI. CT head without major abnormality. Moderate heterogenous plaques left internal carotid artery, 16-49% stenosis. (7) Normocytic anemia: Status: Acute (8) Acute kidney injury: Status: Acute (9) Lymphedema: Status: Acute (10) Non-insulin dependent type 2 diabetes mellitus: Status: Acute (11) Hypertension: Status: Acute Qualifiers: Hypertension type: essential hypertension Qualified Code(s): I10 - Essential (primary) hypertension (12) Hypothyroidism: Status: Acute Problem details: Well-controlled Qualifiers: Hypothyroidism type: postoperative Qualified Code(s): E89.0 - Postprocedural hypothyroidism (13) UTI (urinary tract infection): Status: Acute Reason for Visit Reason for Visit: Reason For Visit: ANEMIA Hospital Course Discharge Summary: Michelle Becerra is a 74 year old female with a past medical history of chronic diastolic congestive heart failure, recent history of coronary angiogram which showed normal coronary arteries, history of basilic vein venous thromboembolism in April 2019 on Eliquis, type 2 diabetes mellitus, hypothyroidism, status post thyroidectomy due to thyroid cancer, hypertension, GEOVANNI, GERD, who has had multiple hospital admissions in the last 3 months, chronically ill. According to senior living, she is alert oriented x3, does have episodes of confusion, does have early form of dementia, is a two-person assist, can feed herself. According to the senior living, patient has been feeling weak for the last few days, looked more pale, poor appetite, they yaron a hemoglobin it was 7.0 so she was brought to [facility]. Patient states that she does not know why she is here, she stated that the senior living sent her over here, but does say for the last few weeks, she is felt more weak, much more pale, poor appetite, feels lightheaded, denies bloody stools, denies black stools, does state that she had a colonoscopy many years ago but cannot remember the results, cannot remember if she had an EGD. Admission she was found to have a hemoglobin of 6.8. Her anticoagulation and aspirin was withheld. She was given 2 units of transfusion. Post transfusion her hemoglobin responded appropriately. She was gradually advanced on diet and presently on GI soft diet. Her hemoglobin stayed stable. Surgery was consulted but patient did not undergo any EGD or colonoscopy as patient recently was on anticoagulation and hemoglobin had been remained stable. Regarding anticoagulation patient has finished 3-month course of anticoagulation for superficial vein thrombosis of cephalic vein. Repeat ultrasound was done which showed distal cephalic vein thrombosis without any extension into her axilla. Patient can remain off anticoagulation for now and will need repeat ultrasound in 3 months. Regarding aspirin which was started recently for possible stroke and she had developed vertigo patient will need to be off aspirin for next 7 to 10 days and then start on baby aspirin rather than aspirin 162 mg daily. Patient was confirmed regarding the need of colonoscopy/EGD in future because of GI bleed to which she agreed. Patient would need to follow-up with Dr. Sapp in 2 weeks for same. Patient was found to have UTI with urine cultures growing Klebsiella. Patient was treated with IV ceftriaxone to which she responded well. Patient is been discharged on levofloxacin which he needs to take only once tomorrow as per her creatinine clearance of 44. Patient is been discharged in hemodynamically stable condition. For further details please review my note from today. Physical Exam Narrative: EXAM NARRATIVE: General: No acute distress, AO x3, dehydrated HEENT: PERRLA, pupils bilaterally equal and reactive Chest: Normal vesicular breath sounds, no added sounds, equal good air entry bilaterally CVS: S1-S2 regular, no murmurs, no tachycardia, no gallops, no rubs Abdomen: Soft, nontender, no organomegaly, bowel sounds present Neuro: No focal deficits, no facial deformity, AO x3, power 5/5 in all limbs Discharge Data Data Completed and Pending: Completed Studies During Hospitalization Category [place] [id number] Urgent Ultrasound 08/13/19 21:14 Completed Labs from last 24 hours 08/15/19 08/15/19 08/15/19 11:09 06:40 06:09 WBC RBC Hgb Hct MCV MCH MCHC RDW Plt Count MPV Neut % (Auto) Lymph % (Auto) Gonzales % (Auto) Eos % (Auto) Baso % (Auto) Neut # (Auto) Lymph # (Auto) Gonzales # (Auto) Eos # (Auto) Baso # (Auto) Nucleated RBC % (a uto) Nucleated RBCs # Sodium 139 Potassium 3.4 L Chloride 100 Carbon Dioxide 23 Anion Gap 19.4 H BUN 20 Creatinine 1.6 H Glucose 112 POC Glucose 315 101 Calculated Osmolal ity 285 Calcium 7.7 L Total Bilirubin 0.4 AST 14 ALT 9 Alkaline Phosphata se 60 Total Protein 5.9 L Albumin 2.6 L Globulin 3.3 08/15/19 08/14/19 06:09 21:23 WBC 6.2 RBC 3.65 L Hgb 10.4 L Hct 33.3 L MCV 91.2 MCH 28.5 MCHC 31.2 RDW 16.6 H Plt Count 193 MPV 9.9 Neut % (Auto) 91.6 Lymph % (Auto) 2.9 Gonzales % (Auto) 4.2 Eos % (Auto) 0.6 Baso % (Auto) 0.2 Neut # (Auto) 5.7 Lymph # (Auto) 0.2 L Gonzales # (Auto) 0.3 Eos # (Auto) 0.0 Baso # (Auto) 0.0 Nucleated RBC % (a uto) 0 Nucleated RBCs # 0.0 Sodium Potassium Chloride Carbon Dioxide Anion Gap BUN Creatinine Glucose POC Glucose 113 Calculated Osmolal ity Calcium Total Bilirubin AST ALT Alkaline Phosphata se Total Protein Albumin Globulin Vitals: Last Vital Signs Temp 97.5 F L 08/15/19 11:13 Pulse 75 08/15/19 11:13 Resp 18 08/15/19 11:13 BP 112/67 08/15/19 11:13 Pulse Ox 100 08/15/19 11:13 Discharge Plan Discharge Patient Disposition: Xfer SNF Condition: Stable Prescriptions: New ferrous sulfate 325 mg (65 mg iron) Tablet,Delayed Release (Dr/Ec) 325 mg PO BIDWM Qty: 60 RF: 0 aspirin [Adult Aspirin Regimen] 81 mg tablet,delayed release (DR/EC) 81 mg PO DAILY Qty: 30 RF: 0 Continued potassium chloride 20 mEq tablet extended release 10 meq PO BID RF: 0 cyanocobalamin (vitamin B-12) [B-12 DOTS] 500 mcg tablet 1,000 mcg PO DAILY RF: 0 metoprolol tartrate 25 mg tablet 25 mg PO BID RF: 0 folic acid 1 mg tablet 1 mg PO DAILY RF: 0 albuterol sulfate 2.5 mg/0.5 mL solution for nebulization 2.5 mg INHALATION Q6H PRN (Reason: unknown) RF: 0 Anoro Ellipta 62.5-25 mcg/actuation blister with device 1 inh INHALATION DAILY RF: 0 albuterol sulfate [Ventolin HFA] 90 mcg/actuation HFA aerosol inhaler 2 puff INHALATION Q6H PRN (Reason: Shortness Of Breath) RF: 0 magnesium oxide 400 mg magnesium capsule 400 mg PO BID Qty: 60 RF: 0 levothyroxine 175 mcg Tablet 175 mcg PO DAILY 30 Days Qty: 30 RF: 0 Januvia 100 mg PO DAILY 30 Days Qty: 30 RF: 0 fenofibrate 48 mg PO DAILY 30 Days Qty: 30 RF: 0 omeprazole 40 mg PO DAILY 30 Days Qty: 30 RF: 0 nitroglycerin 0.4 mg tablet, sublingual 0.4 mg SUBLINGUAL Q5M PRN (Reason: Chest Pain) RF: 0 Myrbetriq 25 mg tablet extended release 24 hr 25 mg PO DAILY RF: 0 polyethylene glycol 3350 [Miralax] 17 gram/dose Powder 17 g PO DAILY PRN (Reason: Constipation) RF: 0 calcium carbonate 390 mg calcium (1,000 mg) tablet 600 mg PO BID RF: 0 atorvastatin 40 mg Tablet 40 mg PO BEDTIME Qty: 30 RF: 0 Dulcolax (bisacodyl) 10 mg Suppository 10 mg DE DAILY PRN (Reason: constipation) RF: 0 Changed furosemide [Lasix] 80 mg tablet 40 mg PO BID Qty: 60 RF: 0 Discontinued Eliquis 5 mg tablet 5 mg PO BID Qty: 180 RF: 3 acetaminophen 325 mg Tablet 650 mg PO Q6H PRN (Reason: Mild/Mod Pain Or Temp >/= 101) Qty: 30 RF: 0 aspirin 81 mg Tablet,Delayed Release (Dr/Ec) 162 mg PO DAILY Qty: 30 RF: 0 Discharge Orders: Discharge Order (Routine); Ordered 08/15/19 Ordered By: Kishan Riddle Referrals: Luis A Sapp MD [Physician] - 2 weeks Viktor Baker MD [Primary Care Provider] - 7-10 days Discharge Diet: GI Soft Discharge Activity: Resume usual activity Activity Restrictions/Additional Instructions: GI soft/bland diet for next 1 week and then advance gradually. Please check upper limb Dopplers in 3 months. Stop Eliquis. Stop aspirin 162 mg. Patient can start aspirin 81 mg after 10 days. Check CBC in 7 days and follow-up with the primary care physician Please follow-up with Dr. Sapp in 2 weeks for possible EGD/colonoscopy. Discharge Attestations Time Spent in Discharge Care*: greater than 30 min Specific Discharge Activities: Specific discharge activities: educating patient, discussing with pcp/other providers, discussing with case management associate/social workers/dc planners, documenting/other paperwork and evaluating patient/reviewing data Status at Discharge: Cognitive status at discharge: cognitively intact, Behavioral status at discharge: cooperative, Functional status at discharge: independent ambulation Overall status at discharge: patient is back to baseline Quality Metrics Clinical Quality Measures During this hospital stay, did patient experience: None Coding Level of Care Code Acute [employer] for [employer] Diagnoses GI bleed K92.2 DVT (deep venous thrombosis) I82.621 DVT location: upper extremity Affected thrombotic vein of extremity: other upper extremity vein Chronicity: unspecified Laterality: right Congestive heart failure I50.9 Heart failure chronicity: unspecified Heart failure type: unspecified CAD (coronary artery disease) I25.110 Coronary Disease-Associated Artery/Lesion type: [place] artery [place] vs. transplanted heart: [place] heart Associated angina: with unstable angina Fall W19.XXXA Encounter type: initial encounter Vertigo R42 Normocytic anemia D64.9 Acute kidney injury N17.9 Lymphedema I89.0 Non-insulin dependent type 2 diabetes mellitus E11.9 Hypertension I10 Hypertension type: essential hypertension Hypothyroidism E89.0 Hypothyroidism type: postoperative UTI (urinary tract infection) N39.0
== END 2019-08-15 16:11 | disposition skilled nursing facility (03) | DRG 378 ==
LOC: ER 19:10 → ICU 19:11 → MEDSURG 08-14 02:11
PROVIDERS: Emergency Medicine; Admitting Provider Family Medicine; PCP Family Medicine; Visit Provider Student in an Organized Health Care Education/Training Program
DX: K92.2 Gastrointestinal hemorrhage, unspecified (principal); I25.110 Atherosclerotic heart disease of native coronary artery with unstable angina pectoris; N17.9 Acute kidney failure, unspecified; N39.0 Urinary tract infection, site not specified; I50.32 Chronic diastolic (congestive) heart failure; I11.0 Hypertensive heart disease with heart failure; D64.9 Anemia, unspecified; E11.9 Type 2 diabetes mellitus without complications; Z91.81 History of falling; E89.0 Postprocedural hypothyroidism; I89.0 Lymphedema, not elsewhere classified; Z86.73 Personal history of transient ischemic attack (TIA), and cerebral infarction without residual deficits; I65.22 Occlusion and stenosis of left carotid artery; Z86.718 Personal history of other venous thrombosis and embolism; Z79.01 Long term (current) use of anticoagulants; G47.33 Obstructive sleep apnea (adult) (pediatric); K21.9 Gastro-esophageal reflux disease without esophagitis; Z85.850 Personal history of malignant neoplasm of thyroid; B96.1 Klebsiella pneumoniae [K. pneumoniae] as the cause of diseases classified elsewhere; Z79.82 Long term (current) use of aspirin; I25.2 Old myocardial infarction; Z87.891 Personal history of nicotine dependence
CPT/HCPCS: 12345; 36415; 36416; 36430; 80053; 81001; 82274; 82607; 82728; 82746; 82962; 83540; 83550; 83605; 83735; 84100; 85014; 85018; 85025; 85610; 86850; 86900; 86920; 87077; 87086; 87186; 93971; 94640; 94664; 96372; 96375; 97161; 97165; 97530; 99283; C9113; J0696; J1815; J2270; J3490; J7799; P9016

== ENCOUNTER 2019-08-18 13:40 | Outpatient (CLI) | payer MEDICARE, MEDICAID, SELFPAY ==
[2019-08-18 14:03] LABS: Basophils % 0.2 %; Eosinophils % 0.7 %; Hemoglobin 9.4 g/dL (11.5-15.3); Lymphocytes # 0.3 10^3/uL (0.8-4.8); Mean Corpuscular HGB Conc 31.3 g/dL (30.0-36.0); Mean Corpuscular Hemoglobin 28.1 pg (28.0-34.0); Mean Corpuscular Volume 89.6 fL (81-99); Mean Platelet Volume 9.4 fL (7.4-10.4); Monocytes # 0.4 10^3/uL (0.2-0.9); Monocytes % 8.4 %; Neutrophils # 3.5 10^3/uL (1.8-7.7); Nucleated Red Blood Cells % 0 %; Platelet Count 313 10^3/cmm (130-400); Red Blood Count 3.35 10^6/uL (4.1-5.3); Red Cell Distribution Width 16.4 % (12.1-15.1); White Blood Count 4.2 10^3/uL (4.0-10.0)
[2019-08-18 14:26] LABS: Anion Gap 16.6 (5-19); Blood Urea Nitrogen 16 mg/dL (8-23); Calcium 7.6 mg/dL (8.5-10.5); Carbon Dioxide 26 mmol/L (22-29); Chloride 101 mmol/L (98-107); Glucose 103 mg/dL (65-115); Osmolality Calculated 285 mOsm/kg (285-295); Potassium 4.6 mmol/L (3.5-5.1); Sodium 139 mmol/L (136-145)
== END 2019-08-18 13:41 | disposition home or self-care (01) ==
LOC: LAB 13:44
PROVIDERS: PCP Family Medicine; Visit Provider Family Medicine
DX: D50.0 Iron deficiency anemia secondary to blood loss (chronic) (principal)
CPT/HCPCS: 80048; 85025

== ENCOUNTER 2019-09-03 15:55 | Inpatient (IN) | payer MEDICARE, MEDICAID, SELFPAY ==
[2019-09-03 16:00] VITALS: BP 128/47; PULSE 66; RESP 16; TEMP 36.3; O2SAT 97; BMI 41.0
--- NOTE | 2019-09-03 16:01 | XRR_ITS ---
PROCEDURE INFORMATION: Exam: XR Right Hip with Pelvis when Performed Exam date and time: 09/03/2019 4:02 PM Age: 74 years old Clinical indication: Injury or trauma; Fall; Initial encounter; Blunt trauma (contusions or hematomas); Right; Hip; Additional info: Fall/injury TECHNIQUE: Imaging protocol: XR Right hip with pelvis when performed. Views: 2 or 3 views. COMPARISON: CT abdomen pelvis w con* [id number] 11/21/2015 12:40 PM FINDINGS: Bones/joints: There is an angulated and overriding comminuted fracture of the subtrochanteric proximal right femur. The fracture is identified just distal to the intertrochanteric portion of the femur but does appear to involve the inferior edge of the lesser trochanter. There is osteopenia with moderate degenerative changes in the hip. Soft tissues: There is soft tissue edema. XR/XR hip RT 2-3V wo/w pel* [id number] IMPRESSION: There is an angulated and overriding comminuted fracture of the subtrochanteric proximal right femur.
--- NOTE | 2019-09-03 16:01 | XRR_ITS ---
PROCEDURE INFORMATION: Exam: XR Right Femur Exam date and time: 09/03/2019 4:48 PM Age: 74 years old Clinical indication: Injury or trauma; Fall; Initial encounter; Blunt trauma; Hip; Right; Additional info: Fall/injury TECHNIQUE: Imaging protocol: XR Right femur. Views: 2 views. COMPARISON: No relevant prior studies available. FINDINGS: Bones/joints: There is a comminuted/spiral fracture of the proximal right femur. This is a subtrochanteric fracture extending just inferior to the level of the lesser trochanter. There is an adjacent butterfly fragment. There are moderate degenerative changes in the hip and severe degenerative changes in the right knee. No right knee joint effusion. Soft tissues: Unremarkable. XR/XR femur RT min 2V* [id number] IMPRESSION: Comminuted fracture of the proximal right femur as above.
--- NOTE | 2019-09-03 16:11 | ED_ITS ---
HPI - Extremity Problem General: Chief complaint: Extremity Injury, Lower Stated complaint: RIGHT HIP PAIN S/P FALL Time Seen by Provider: 09/03/19 15:57 History of Present Illness: HPI Narrative: Michelle is a 74-year-old female brought in by EMS with a complaint of right hip pain. The patient normally does not ambulate but apparently today she tried to transfer herself from her bed to her chair. She fell landing on her right hip. She denies any headache or neck pain. She has gross deformity to her right hip with pain with any type of movement. Associated symptoms: Deny chest pain, fever(s) or rash Review of Systems Const: Denies: fever(s), chills, body aches, fatigue, malaise or diaphoresis Eyes: Denies: change in vision, blurry vision, blind spots or photophobia ENMT: Denies: throat pain, odynophagia, hoarseness, swelling of lips/tongue, ear or mastoid pain, ear discharge, change in hearing or nasal discharge Card: Denies: chest pain, palpitations, irregular heart rhythm, edema, lightheadedness, syncope, pre-syncope, dyspnea on exertion or orthopnea Resp: Denies: dyspnea, productive cough, non-productive cough, wheezing, hemoptysis or chest congestion GI: Denies: abdominal pain, nausea, vomiting, hematemesis, coffee ground emesis, heartburn, diarrhea, constipation, GI cramping, hematochezia or melena : Denies: flank pain, dysuria, urinary frequency, urinary urgency or hematuria Musc: Reports: joint pain; Denies: neck pain, back pain, extremity pain, extremity swelling, joint swelling, joint redness, joint warmth or joint stiffness Skin/Breast: Denies: rash, pruritus, erythema, skin tenderness or jaundice Neuro: Denies: headache(s), numbness in extremities, weakness in extremities, sensory changes, lack of coordination, difficulty walking, dizziness, vertigo, confusion or Slurred speech present Wai/Lymph: Denies: easy bruising, easy bleeding, petechiae, purpura or enlarged lymph nodes All/Imm: Denies: urticaria, throat swelling, tongue swelling, facial swelling or acute wheezing PFS ED PFSH: Medical History Acute respiratory failure with hypoxia -Required intubation following CODE BLUE, extubated on 05/14 -on diuresis due to anasarca; switch to oral diuretics -Has Mann catheter in place, continue to monitor urine output; removal today -off antibiotic treatment; had been on vancomycin and Levaquin; has noted allergy to Zosyn -CXR (05/18) shows resolution of pneumonia -Echo: EF=64%, no RWMA, G1DD, mild MR, trace AR -afebrile x >24 hrs, vital signs otherwise stable; continue to monitor -continue to monitor renal function, lytes with diuresis -continue to monitor Is & Os, daily weights -telemetry monitoring -sputum cx: mixed nicho; gram stain negative, noted WBCs -blood cx: prelim negative -continue to monitor respiratory status closely -supplemental oxygen as needed -Neb treatments as needed -noted D-dimer elevation, negative PE, negative DVT -very low suspicion for possible aspiration but if continued fever and/or hemodynamic instability may need to include anaerobic coverage; not needed CAD (coronary artery disease) Coronaries appeared normal on angiogram April 2019 Hypertension Hypothyroidism Well-controlled Lymphedema Macrocytic anemia -has chronic macrocytic anemia; has evidence of vitamin B12 and folate deficiency -replacing vitamin B12, folate -also noted evidence of low iron though ferritin is normal -had reported black stools -baseline Hg is around 11; continue to monitor H/H closely; has been gradually trending down -on PPI Non-insulin dependent type 2 diabetes mellitus NSTEMI (non-ST elevated myocardial infarction) -Noted to have significantly elevated troponins with a delta over 90 which may have precipitated code -Given current need for continued ventilator support, will continue medical management, was already started on a heparin drip, statin, full dose aspirin and Plavix; d/c heparin drip -No acute ischemic changes noted on EKG -Echo done previously as noted below with no noted regional wall motion abnormalities -Continue telemetry monitoring -Cardiology consult by Dr. Turner appreciated; will need outpatient stress testing Surgical History H/O thyroidectomy History of ankle surgery S/P cholecystectomy Family History Other Breast cancer CAD (coronary artery disease) Diabetes Hypertension Social History Smoking and tobacco status: former smoker Quit status (tobacco): has quit using tobacco Former quit date comment: Smoked briefly in her teens. Alcohol intake: never Lives independently: Yes Household members: none Housing: Apartment Current occupational status: disabled History of recent travel: No Current gender identity: Female Physical Exam Const: COMMON NORMALS: no acute distress, patient oriented x3, no limitations, healthy appearing and well nourished GENERAL APPEARANCE: cooperative, well kempt and well developed HENMT: COMMON NORMALS: normocephalic, atraumatic, external ears normal, EAC's normal and Normal external nose present HEAD & SCALP: normal to inspection, normocephalic and atraumatic FACE & SINUS: normal facial exam and face symmetric NOSE: Normal external nose present and Normal nares present EXTERNAL EAR: Yes external ears normal EXTERNAL AUDITORY CANAL: EAC's normal MOUTH: Normal oral and palatal mucosa present, lip normal and tongue normal Eye: COMMON NORMALS: Equal, round and reactive pupils present and conjunctivae normal GENERAL EYE: appearance normal, both eyes and all related structures ALIGNMENT: Yes alignment normal PERIORBITAL: periorbital findings normal EYELID: eyelids normal CONJUNCTIVA: Yes conjunctivae normal SCLERA: sclerae normal PUPIL: Yes Equal, round and reactive pupils present Neck/C-Spine: COMMON NORMALS: full ROM, no lymphadenopathy, supple, no meningeal signs and no JVD GENERAL: Yes normal visual inspection and Yes trachea midline Chest: COMMONS NORMALS: normal inspection of the chest and normal palpation of entire chest wall Resp: COMMON NORMALS: normal respiratory effort, No retractions and No use of accessory muscles EFFORT & INSPECTION: Yes able to speak in complete sentences and Yes symmetric chest movement AUSCULTATION: no crackles, no rales, no rhonchi and no wheezes Cardio: COMMON NORMALS: no JVD, regular rate, regular rhythm, S1 normal heart sound present and S2 normal heart sound present RATE: regular rate RHYTHM: regular rhythm HEART SOUNDS: S1 normal heart sound present, S2 normal heart sound present, no click, no gallops, no murmurs, no rubs and abnormal split S2 GI: COMMON NORMALS: Soft to palpation and No hepatosplenomegaly present PALPATION: Yes Soft to palpation, No Tenderness to palpation present (GI), No Guarding due to palpation present (GI), No Rigid due to palpation, Yes No hepatosplenomegaly present, No Hernia present, No Palpable mass present and No Pulsatile mass present : COMMON NORMALS: Yes no CVA tenderness BLADDER/KIDNEY EXAM: Yes no CVA tenderness EXTERNAL FEMALE EXAM: No Hernia present Back/Pelvis: COMMON NORMALS: no CVA tenderness, thoracic and lumbar spine normal to inspection, no thoracic nor lumbar tenderness and thoraco-lumbar ROM normal Extremity: COMMON NORMALS: normal to inspection, full ROM, capillary refill normal, no joint enlargement, no clubbing, cyanosis or edema and no calf tenderness Neuro: COMMON NORMALS: patient oriented x3, CN's II-XII intact bilaterally, moves all extremities, no focal motor deficits and no sensory deficits noted MENINGEAL SIGNS: Yes no meningeal signs SPEECH: speech normal Psych: COMMON NORMALS: mental status grossly normal, Normal thought process present, cooperative, normal affect, speech normal and activity/motor behavior normal APPEARANCE: Yes well kempt SPEECH: Yes normal speech THOUGHT PROCESS: Normal thought process present Skin: COMMON NORMALS: no rashes or lesions noted, turgor normal, no jaundice, no petechiae and no mottling GENERAL SKIN EXAM: no rashes or lesions noted and turgor normal Course Vital Signs: Vital signs: Vital Signs Temperature 97.4 F L 09/03/19 16:00 Pulse Rate 66 09/03/19 16:25 Respiratory Rate 18 09/03/19 16:57 Blood Pressure 183/105 09/03/19 16:25 Pulse Oximetry 99 09/03/19 16:57 MDM - Extremity (Nontraumatic) Lab Data: Labs: Lab Results 09/03/19 09/03/19 09/03/19 Range/Units 16:17 17:15 17:15 WBC 9.0 (4.0-10.0) 10^3/ uL RBC 3.01 L (4.1-5.3) 10^6/u L Hgb 8.3 L (11.5-15.3) g/dL Hct 27.1 L (37.0-47.0) % MCV 90.0 (81-99) fL MCH 27.6 L (28.0-34.0) pg MCHC 30.6 (30.0-36.0) g/dL RDW 17.6 H (12.1-15.1) % Plt Count 319 (130-400) 10^3/c mm MPV 9.0 (7.4-10.4) fL Neut % (Auto) 88.4 % Lymph % (Auto) 5.0 % Tama % (Auto) 5.3 % Eos % (Auto) 0.4 % Baso % (Auto) 0.2 % Neut # (Auto) 7.9 H (1.8-7.7) 10^3/u L Lymph # (Auto) 0.5 L (0.8-4.8) 10^3/u L Tama # (Auto) 0.5 (0.2-0.9) 10^3/u L Eos # (Auto) 0.0 (0.0-0.8) 10^3/u L Baso # (Auto) 0.0 (0.0-0.1) 10^3/u L Nucleated RBC % (a uto) 0 % Nucleated RBCs # 0.0 /100WBC Sodium (136-145) mmol/L Potassium (3.5-5.1) mmol/L Chloride (98-107) mmol/L Carbon Dioxide (22-29) mmol/L Anion Gap (5-19) BUN (8-23) mg/dL Creatinine (0.5-0.9) mg/dL Glucose (65-115) mg/dL Calculated Osmolal ity (285-295) mOsm/k g Calcium (8.5-10.5) mg/dL Magnesium (1.7-2.3) mg/dL Total Bilirubin (0.15-1.2) mg/dL AST (0-32) U/L ALT (0-33) U/L Alkaline Phosphata se (35-105) IU/L Total Protein (6.6-8.7) g/dL Albumin (3.5-5.2) g/dL Globulin (1.3-4.6) g/dL Urine Color Yellow (Yellow) Urine Appearance Sl cloudy A (CLEAR) Urine pH 6.5 (5-7) Ur Specific Gravit y 1.005 (1.005-1.030) Urine Protein Neg (Negative) Urine Glucose (UA) Norm (Normal) Urine Ketones Negative (Negative) Urine Blood Neg (Negative) Urine Nitrate Positive H (Negative) Urine Bilirubin Neg (NEGATIVE) Urine Urobilinogen Norm (Negative) mg/dL Ur Leukocyte Lisa ase 1+ H (Negative) Urine RBC 0-4 H (0-2) /hpf Urine WBC 80-100 H (0-5) /hpf Ur Squamous Epith Cells 5-10 H (0-5) Ur Transition Epit h Cell 0-4 /hpf Urine Bacteria 1+ H (NONE) Urine Mucus Trace Blood Type B Negative Rho(D) Type Negative Antibody Screen Negative 09/03/19 Range/Units 17:15 WBC (4.0-10.0) 10^3/ uL RBC (4.1-5.3) 10^6/u L Hgb (11.5-15.3) g/dL Hct (37.0-47.0) % MCV (81-99) fL MCH (28.0-34.0) pg MCHC (30.0-36.0) g/dL RDW (12.1-15.1) % Plt Count (130-400) 10^3/c mm MPV (7.4-10.4) fL Neut % (Auto) % Lymph % (Auto) % Tama % (Auto) % Eos % (Auto) % Baso % (Auto) % Neut # (Auto) (1.8-7.7) 10^3/u L Lymph # (Auto) (0.8-4.8) 10^3/u L Tama # (Auto) (0.2-0.9) 10^3/u L Eos # (Auto) (0.0-0.8) 10^3/u L Baso # (Auto) (0.0-0.1) 10^3/u L Nucleated RBC % (a uto) % Nucleated RBCs # /100WBC Sodium 131 L (136-145) mmol/L Potassium 3.9 (3.5-5.1) mmol/L Chloride 95 L (98-107) mmol/L Carbon Dioxide 25 (22-29) mmol/L Anion Gap 14.9 (5-19) BUN 20 (8-23) mg/dL Creatinine 1.5 H (0.5-0.9) mg/dL Glucose 156 H (65-115) mg/dL Calculated Osmolal ity 272 L (285-295) mOsm/k g Calcium 7.1 L (8.5-10.5) mg/dL Magnesium 2.1 (1.7-2.3) mg/dL Total Bilirubin 0.5 (0.15-1.2) mg/dL AST 17 (0-32) U/L ALT 8 (0-33) U/L Alkaline Phosphata se 51 (35-105) IU/L Total Protein 5.6 L (6.6-8.7) g/dL Albumin 3.2 L (3.5-5.2) g/dL Globulin 2.4 (1.3-4.6) g/dL Urine Color (Yellow) Urine Appearance (CLEAR) Urine pH (5-7) Ur Specific Gravit y (1.005-1.030) Urine Protein (Negative) Urine Glucose (UA) (Normal) Urine Ketones (Negative) Urine Blood (Negative) Urine Nitrate (Negative) Urine Bilirubin (NEGATIVE) Urine Urobilinogen (Negative) mg/dL Ur Leukocyte Lisa ase (Negative) Urine RBC (0-2) /hpf Urine WBC (0-5) /hpf Ur Squamous Epith Cells (0-5) Ur Transition Epit h Cell /hpf Urine Bacteria (NONE) Urine Mucus Blood Type Rho(D) Type Antibody Screen EKG Data^: EKG 1: Attestation: I personally reviewed and interpreted this EKG as follows: EKG interpretation date: 09/03/19 EKG interpretation time: 17:20 Interpretation: Normal sinus rhythm at 76 beats a minute, nonspecific ST and T wave changes. Discharge Plan Discharge Prescriptions: No Action potassium chloride 20 mEq tablet extended release 10 meq PO BID RF: 0 cyanocobalamin (vitamin B-12) [Vitamin B-12] 500 mcg tablet 1,000 mcg PO DAILY RF: 0 metoprolol tartrate 25 mg tablet 25 mg PO BID RF: 0 folic acid 1 mg tablet 1 mg PO DAILY RF: 0 albuterol sulfate 2.5 mg/0.5 mL solution for nebulization 2.5 mg INHALATION Q6H PRN (Reason: unknown) RF: 0 Anoro Ellipta 62.5-25 mcg/actuation blister with device 1 inh INHALATION DAILY RF: 0 albuterol sulfate [Ventolin HFA] 90 mcg/actuation HFA aerosol inhaler 2 puff INHALATION Q6H PRN (Reason: Shortness Of Breath) RF: 0 sertraline [Zoloft] 50 mg tablet 50 mg PO DAILY RF: 0 magnesium oxide 400 mg magnesium capsule 400 mg PO BID Qty: 60 RF: 0 levothyroxine 175 mcg Tablet 175 mcg PO DAILY 30 Days Qty: 30 RF: 0 Januvia 100 mg PO DAILY 30 Days Qty: 30 RF: 0 omeprazole 40 mg PO DAILY 30 Days Qty: 30 RF: 0 nitroglycerin 0.4 mg tablet, sublingual 0.4 mg SUBLINGUAL Q5M PRN (Reason: Chest Pain) RF: 0 calcium carbonate 600 mg calcium (1,500 mg) Tablet 600 mg PO BID RF: 0 fenofibrate nanocrystallized 48 mg Tablet 48 mg PO DAILY RF: 0 Tylenol 325 mg Tablet 650 mg PO Q6H PRN (Reason: Pain) RF: 0 nystatin 100,000 unit/gram Cream See Rx Instructions .ROUTE .COMPLEX RF: 0 magnesium citrate Solution See Rx Instructions .ROUTE .COMPLEX RF: 0 Dulcolax (bisacodyl) 5 mg Tablet,Delayed Release (Dr/Ec) 20 mg PO ONCE RF: 0 Culturelle 15 billion cell Capsule, Sprinkle 1 cap PO DAILY RF: 0 Myrbetriq 25 mg tablet extended release 24 hr 25 mg PO DAILY RF: 0 polyethylene glycol 3350 [Miralax] 17 gram/dose Powder 17 g PO DAILY PRN (Reason: Constipation) RF: 0 atorvastatin 40 mg Tablet 40 mg PO BEDTIME Qty: 30 RF: 0 ferrous sulfate 325 mg (65 mg iron) Tablet,Delayed Release (Dr/Ec) 325 mg PO BIDWM Qty: 60 RF: 0 aspirin [Adult Aspirin Regimen] 81 mg tablet,delayed release (DR/EC) 81 mg PO DAILY Qty: 30 RF: 0 furosemide [Lasix] 80 mg tablet 40 mg PO BID Qty: 60 RF: 0 Coding Level of Care Code ED Branding 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
[2019-09-03] MEDS: ondansetron 2 mg/ML SDV 2 mL 4 MG IVP (16:19)
[2019-09-03 16:20] VITALS: RESP 16
[2019-09-03] MEDS: morphine 4 mg/mL SDV 1 mL IVP ×2 (16:20→22:02)
[2019-09-03 16:25] VITALS: BP 183/105; PULSE 66; O2SAT 98
--- NOTE | 2019-09-03 16:49 | CTR_ITS ---
PROCEDURE INFORMATION: Exam: CT Cervical Spine Without Contrast Exam date and time: 09/03/2019 4:50 PM Age: 74 years old Clinical indication: Injury or trauma; Fall; Initial encounter; Blunt trauma; Additional info: Pain TECHNIQUE: Imaging protocol: Computed tomography images of the cervical spine without contrast. Radiation optimization: All CT scans at this facility use at least one of these dose optimization techniques: automated exposure control; mA and/or kV adjustment per patient size (includes targeted exams where dose is matched to clinical indication); or iterative reconstruction. COMPARISON: CT Cervical Spine wo* [id number] 04/05/2018 6:57 AM RADIATION DOSE METRICS: Total DLP: 365.79 mGy-cm FINDINGS: Vertebrae: No acute fracture. No subluxation. Discs/Spinal canal/Neural foramina: The there are severe diffuse degenerative changes. There is disc space narrowing with endplate osteophytes and sclerosis throughout the cervical spine greatest at C5-C6. This results in unchanged moderate spinal and foraminal stenosis. Soft tissues: Stable postoperative clips are noted in the neck. Lungs: There are moderate emphysematous changes. CT/CT cervical spin wo con* [id number] IMPRESSION: No acute abnormality. Stable degenerative changes. Radiation Dose CTDIVOL = (mGy): DLP = 365.79 (mGy-cm)
--- NOTE | 2019-09-03 16:49 | CTR_ITS ---
PROCEDURE INFORMATION: Exam: CT Head Without Contrast Exam date and time: 09/03/2019 4:50 PM Age: 74 years old Clinical indication: Injury or trauma; Fall TECHNIQUE: Imaging protocol: Computed tomography of the head without contrast. Radiation optimization: All CT scans at this facility use at least one of these dose optimization techniques: automated exposure control; mA and/or kV adjustment per patient size (includes targeted exams where dose is matched to clinical indication); or iterative reconstruction. COMPARISON: CT head wo con* [id number] 08/04/2019 12:55 PM RADIATION DOSE METRICS: Total DLP: 917.08 mGy-cm FINDINGS: Brain: Normal. Stable mild small vessel disease changes. No hemorrhage. Unremarkable white matter. No mass effect. Ventricles: Normal. No ventriculomegaly. Bones/joints: Unremarkable. No acute fracture. Sinuses: Visualized sinuses are unremarkable. No fluid levels. Mastoid air cells: Visualized mastoid air cells are well aerated. Soft tissues: Unremarkable. CT/CT head wo con* [id number] IMPRESSION: No acute intracranial abnormality. Radiation Dose CTDIVOL = (mGy): DLP = 917.08 (mGy-cm)
--- NOTE | 2019-09-03 16:49 | ECG_ITS ---
Measurements Intervals Brant Rate: 65 P: 89 MO: 151 QRS: -2 QRSD: 90 T: 66 QT: 429 QTc: 447 SINUS RHYTHM Compared to ECG 08/04/2019 17:07:55 No significant changes Electronically Signed On 09-03-2019 18:20:01 CDT by Eddie Avery M.D. [email or web address]
[2019-09-03 16:57] VITALS: RESP 18; O2SAT 99
[2019-09-03] MEDS: HYDROmorphone 1 mg/mL INJ 1 mL 0.5 MG IVP (16:57)
[2019-09-03 17:23] LABS: Basophils % 0.2 %; Eosinophils % 0.4 %; Hematocrit 27.1 % (37.0-47.0); Hemoglobin 8.3 g/dL (11.5-15.3); Lymphocytes # 0.5 10^3/uL (0.8-4.8); Mean Corpuscular HGB Conc 30.6 g/dL (30.0-36.0); Mean Corpuscular Hemoglobin 27.6 pg (28.0-34.0); Monocytes # 0.5 10^3/uL (0.2-0.9); Monocytes % 5.3 %; Neutrophils # 7.9 10^3/uL (1.8-7.7); Neutrophils % 88.4 %; Nucleated Red Blood Cells % 0 %; Platelet Count 319 10^3/cmm (130-400); Red Blood Count 3.01 10^6/uL (4.1-5.3); Red Cell Distribution Width 17.6 % (12.1-15.1)
[2019-09-03 17:48] LABS: Alanine Aminotransferase 8 U/L (0-33); Albumin Level 3.2 g/dL (3.5-5.2); Alkaline Phosphatase 51 IU/L (35-105); Anion Gap 14.9 (5-19); Aspartate Amino Transferase 17 U/L (0-32); Blood Urea Nitrogen 20 mg/dL (8-23); Calcium 7.1 mg/dL (8.5-10.5); Carbon Dioxide 25 mmol/L (22-29); Chloride 95 mmol/L (98-107); Globulin 2.4 g/dL (1.3-4.6); Glucose 156 mg/dL (65-115); Magnesium 2.1 mg/dL (1.7-2.3); Osmolality Calculated 272 mOsm/kg (285-295); Potassium 3.9 mmol/L (3.5-5.1); Sodium 131 mmol/L (136-145); Total Bilirubin 0.5 mg/dL (0.15-1.2); Total Protein 5.6 g/dL (6.6-8.7)
[2019-09-03 17:49] LABS: Bilirubin Urine Neg (NEGATIVE); Blood Urine Neg (Negative); Glucose Urine UA Norm (Normal); Ketones Urine Negative (Negative); Leukocyte Esterase Urine 1+ (Negative); Nitrate Urine Positive (Negative); Protein Urine Neg (Negative); Specific Gravity, Urine 1.005 (1.005-1.030); Urine Color Yellow (Yellow); Urobilinogen Urine Norm (Negative); pH Urine 6.5 (5-7)
[2019-09-03 18:15] LABS: Bacteria Urine 1+; Mucus Urine TRACE; RBC Urine 0-4 /hpf (0-2); Transitional Epi Cells Urine 0-4 /hpf; WBC Urine 80-100 /hpf (0-5)
[2019-09-03 18:16] LABS: Add Urine Culture? Yes
[2019-09-03] MEDS: cefTRIAXone 1,000 MG in sodium chloride 0.9% (plus) 50 ML 100 MG IV (19:24)
--- NOTE | 2019-09-03 20:36 | PM.HP ---
Providers/Chief Complaint Primary Care Provider: Viktor Baker MD Chief Complaint: RIGHT HIP PAIN S/P FALL History of Present Illness Patient: Michelle Becerra [facility]#: [id number] : 4Acc#:[id number] Age/Sex: 74 / FADM Date: 08/31/19 Loc: [facility] ER/Bed: Encounter Date: 09/03/[address]: Luis A Sapp MD Report Number: [id number] Providers/Chief Complaint Primary Care Provider: Viktor Bkaer MD Chief Complaint: GI Bleed History of Present Illness Michelle Becerra is a 74 year old female who carries a history of dementia, hypothyroidism secondary to thyroidectomy due to thyroid cancer, type 2 diabetes, preserved ejection fraction heart failure, hypertension, sleep apnea, GERD, GI bleed, anemia came in after sustaining a fall. Patient is not able to give any details. I called correction. Nurses stating that for last couple of days she has been trying to transfer herself from bed to the wheelchair, she is 1 person assist mostly, today when she was trying to transfer herself from bed to the wheelchair she fell on the floor, she was in excruciating pain and right leg was shorter as compared to the left. She was sent to the ED for further evaluation, x-ray revealed right hip fracture. Review of previous records revealed that she was intubated after CODE BLUE, she has full CODE STATUS, she was asked to follow-up with Dr. Sapp for EGD& colonoscopy, she was taken off anticoagulation because of her persistent anemia positive occult blood in stool Diagnosis in the ER revealed worsening anemia, she is hypertensive, not tachycardic, EKG revealed normal sinus rhythm, Review of Systems General: Reports: ROS unobtainable due to medical condition (Dementia and recently she was given opioid analgesics) Medications/Allergies Home Medications Medication Instructions Recorded Confirmed Last Taken Type Januvia 100 mg PO DAILY 30 Days #30 tab 05/20/19 09/03/19 09/03/19 Rx levothyroxine 175 mcg PO DAILY 30 Days #30 tab 05/20/19 09/03/19 09/03/19 Rx omeprazole 40 mg PO DAILY 30 Days #30 tab 05/20/19 09/03/19 09/03/19 Rx albuterol sulfate 2.5 mg/0.5 mL 2.5 mg INHALATION Q6H PRN each 06/30/19 09/03/19 Unknown History solution for nebulization cyanocobalamin (vitamin B-12) 500 1,000 mcg PO DAILY 06/30/19 09/03/19 09/03/19 History mcg tablet folic acid 1 mg tablet 1 mg PO DAILY 06/30/19 09/03/19 09/03/19 History metoprolol tartrate 25 mg tablet 25 mg PO BID 06/30/19 09/03/19 09/03/19 History potassium chloride 20 mEq 10 meq PO BID 06/30/19 09/03/19 09/03/19 History tablet,extended release albuterol sulfate 90 mcg/actuation 2 puff INHALATION Q6H PRN 07/06/19 09/03/19 Unknown History aerosol inhaler umeclidinium 62.5 mcg-vilanterol 1 inh INHALATION DAILY 07/06/19 09/03/19 09/03/19 History 25 mcg/actuation powdr for inhalation Myrbetriq 25 mg PO DAILY 07/11/19 09/03/19 09/03/19 History polyethylene glycol 3350 [Miralax] 17 g PO DAILY PRN 07/11/19 09/03/19 07/25/19 History magnesium oxide 400 mg PO BID #60 cap 07/25/19 09/03/19 09/03/19 Rx nitroglycerin 0.4 mg SUBLINGUAL Q5M PRN 07/26/19 09/03/19 Unknown History atorvastatin 40 mg PO BEDTIME #30 tab 08/05/19 09/03/19 09/02/19 Rx aspirin [Adult Aspirin Regimen] 81 mg PO DAILY #30 tab 08/15/19 09/03/19 09/03/19 Rx ferrous sulfate 325 mg PO BIDWM #60 tab 08/15/19 09/03/19 09/03/19 Rx furosemide [Lasix] 40 mg PO BID #60 tab 08/15/19 09/03/19 09/03/19 Rx sertraline 50 mg tablet 50 mg PO DAILY 08/30/19 09/03/19 09/03/19 History Lactobacillus rhamnosus GG 1 cap PO DAILY 09/03/19 09/03/19 09/03/19 History [Culturelle] acetaminophen [Tylenol] 650 mg PO Q6H PRN 09/03/19 09/03/19 Unknown History bisacodyl [Dulcolax (bisacodyl)] 20 mg PO ONCE 09/03/19 09/03/19 Unknown History calcium carbonate 600 mg PO BID 09/03/19 09/03/19 09/03/19 History fenofibrate nanocrystallized 48 mg PO DAILY 09/03/19 09/03/19 09/03/19 History magnesium citrate See Rx Instructions .ROUTE .COMPLEX 09/03/19 09/03/19 Unknown History nystatin See Rx Instructions .ROUTE .COMPLEX 09/03/19 09/03/19 Unknown History Allergies Allergy/AdvReac Type Severity Reaction Status Date / Time methylprednisolone Allergy ALGY-Rash Verified 08/30/19 13:53 [From Solu-Medrol] piperacillin [From Zosyn] Allergy ALGY-Rash Verified 08/30/19 13:53 tazobactam [From Zosyn] Allergy ALGY-Rash Verified 08/30/19 13:53 PFSH Acute PFSH: Medical History Acute respiratory failure with hypoxia -Required intubation following CODE BLUE, extubated on 05/14 CAD (coronary artery disease) Coronaries appeared normal on angiogram April 2019 Dementia Hypertension Hypothyroidism Well-controlled Lymphedema Macrocytic anemia -has chronic macrocytic anemia; has evidence of vitamin B12 and folate deficiency -replacing vitamin B12, folate -also noted evidence of low iron Non-insulin dependent type 2 diabetes mellitus NSTEMI (non-ST elevated myocardial infarction) Surgical History H/O thyroidectomy History of ankle surgery S/P cholecystectomy Family History Other Breast cancer CAD (coronary artery disease) Diabetes Hypertension Social History Smoking and tobacco status: former smoker Quit status (tobacco): has quit using tobacco Former quit date comment: Smoked briefly in her teens. Alcohol intake: never Lives independently: Yes Household members: none Housing: Apartment Current occupational status: disabled History of recent travel: No Current gender identity: Female Physical Exam Narrative: EXAM NARRATIVE: Head to toe examination Patient laying in her bed with distress due to pain She is able to understand my questions but most of the answers she is giving is she cannot recall She is able to follow my commands S1, S2 fluid overloaded clinically Hypertension systolic blood pressure 180s No active respiratory distress She is only oriented to herself Bilateral lower extremity edema 2+, pedal edema 2+ Right leg is shortened and rotated No vascular compromise Bilateral breath sounds diminished breath sounds, Skin shows mild hyperemia of left ankle area without cellulitis Venous stasis dermatitis Cognitive impairment A&P Assessment and plan (1) Closed right hip fracture: Status: Acute (2) Normocytic anemia: Status: Acute (3) GI bleed: Status: Acute (4) UTI (urinary tract infection): Status: Acute (5) Fall: Status: Acute Qualifiers: Encounter type: initial encounter Qualified Code(s): W19.XXXA - Unspecified fall, initial encounter Additional A&P Information Right hip fracture after sustaining a fall while getting out of bed Orthopedic consult N.p.o. after midnight Analgesic control with morphine with close monitoring to her vitals and respiratory status Her anticoagulants were discontinued because of GI bleed She has a history of cardiac arrest requiring intubation in April, she is very high risk for perioperative complications, her angiogram did not show any coronary ischemia, she has preserved ejection fraction, grade 1 diastolic dysfunction, considering urgent nature of the surgery no further testing is required, I would recommend monitoring her in ICU after the surgery Acute on chronic normocytic anemia Not on anticoagulation anymore Hemoglobin dropped from 10.4-8.3 in 1 month Would avoid DVT prophylaxis I do not see any recent EGD colonoscopy report however Dr. Sapp has seen her in his office Protonix 40 IV twice daily Preserved ejection fraction heart failure Because of her sedentary lifestyle her lower extremity edema seems to be her baseline Her creatinine is also at baseline Close monitoring perioperatively after she receives fluids in the morning We will check BNP UTI without sepsis Last urine culture was positive for Klebsiella, sensitive to ceftriaxone Type 2 diabetes: Last A1c 6.9 She will be n.p.o. after midnight, avoid insulin at this point, I rather have her hyperglycemic to avoid hypoglycemic episodes during surgery Dementia Patient is not a good historian Considering his multiple comorbid conditions, and active surgery she is high risk for cardiac arrest, [place], respiratory failure Full code DVT prophylaxis SCDs Attestations Medical Necessity Statement*: Anticipating stay in the hospital cross more than 2 nights she carries a guarded prognosis, high risk for [place] cardiac arrest and respiratory failure, need orthopedic evaluation in the ER Time Spent in Patient Care: 60mins, calledl correction to get the report Coding Level of Care Code Acute [employer] for [employer] Diagnoses Closed right hip fracture S72.001A Normocytic anemia D64.9 GI bleed K92.2 UTI (urinary tract infection) N39.0 Fall W19.XXXA Encounter type: initial encounter Dictated By:Eddie Spain MD Signed By:Eddie Spainigned Date/Time:09/03/192033 Medications/Allergies Home Medications Medication Instructions Recorded Confirmed Last Taken Type Januvia 100 mg PO DAILY 30 Days #30 tab 05/20/19 09/03/19 09/03/19 Rx levothyroxine 175 mcg PO DAILY 30 Days #30 tab 05/20/19 09/03/19 09/03/19 Rx omeprazole 40 mg PO DAILY 30 Days #30 tab 05/20/19 09/03/19 09/03/19 Rx albuterol sulfate 2.5 mg/0.5 mL 2.5 mg INHALATION Q6H PRN each 06/30/19 09/03/19 Unknown History solution for nebulization cyanocobalamin (vitamin B-12) 500 1,000 mcg PO DAILY 06/30/19 09/03/19 09/03/19 History mcg tablet folic acid 1 mg tablet 1 mg PO DAILY 06/30/19 09/03/19 09/03/19 History metoprolol tartrate 25 mg tablet 25 mg PO BID 06/30/19 09/03/19 09/03/19 History potassium chloride 20 mEq 10 meq PO BID 06/30/19 09/03/19 09/03/19 History tablet,extended release albuterol sulfate 90 mcg/actuation 2 puff INHALATION Q6H PRN 07/06/19 09/03/19 Unknown History aerosol inhaler umeclidinium 62.5 mcg-vilanterol 1 inh INHALATION DAILY 07/06/19 09/03/19 09/03/19 History 25 mcg/actuation powdr for inhalation Myrbetriq 25 mg PO DAILY 07/11/19 09/03/19 09/03/19 History polyethylene glycol 3350 [Miralax] 17 g PO DAILY PRN 07/11/19 09/03/19 07/25/19 History magnesium oxide 400 mg PO BID #60 cap 07/25/19 09/03/19 09/03/19 Rx nitroglycerin 0.4 mg SUBLINGUAL Q5M PRN 07/26/19 09/03/19 Unknown History atorvastatin 40 mg PO BEDTIME #30 tab 08/05/19 09/03/19 09/02/19 Rx aspirin [Adult Aspirin Regimen] 81 mg PO DAILY #30 tab 08/15/19 09/03/19 09/03/19 Rx ferrous sulfate 325 mg PO BIDWM #60 tab 08/15/19 09/03/19 09/03/19 Rx furosemide [Lasix] 40 mg PO BID #60 tab 08/15/19 09/03/19 09/03/19 Rx sertraline 50 mg tablet 50 mg PO DAILY 08/30/19 09/03/19 09/03/19 History Lactobacillus rhamnosus GG 1 cap PO DAILY 09/03/19 09/03/19 09/03/19 History [Culturelle] acetaminophen [Tylenol] 650 mg PO Q6H PRN 09/03/19 09/03/19 Unknown History bisacodyl [Dulcolax (bisacodyl)] 20 mg PO ONCE 09/03/19 09/03/19 Unknown History calcium carbonate 600 mg PO BID 09/03/19 09/03/19 09/03/19 History fenofibrate nanocrystallized 48 mg PO DAILY 09/03/19 09/03/19 09/03/19 History magnesium citrate See Rx Instructions .ROUTE .COMPLEX 09/03/19 09/03/19 Unknown History nystatin See Rx Instructions .ROUTE .COMPLEX 09/03/19 09/03/19 Unknown History Allergies Allergy/AdvReac Type Severity Reaction Status Date / Time methylprednisolone Allergy ALGY-Rash Verified 08/30/19 13:53 [From Solu-Medrol] piperacillin [From Zosyn] Allergy ALGY-Rash Verified 08/30/19 13:53 tazobactam [From Zosyn] Allergy ALGY-Rash Verified 08/30/19 13:53 PFSH Acute PFSH: Medical History Acute respiratory failure with hypoxia -Required intubation following CODE BLUE, extubated on 05/14 -on diuresis due to anasarca; switch to oral diuretics -Has Mann catheter in place, continue to monitor urine output; removal today -off antibiotic treatment; had been on vancomycin and Levaquin; has noted allergy to Zosyn -CXR (05/18) shows resolution of pneumonia -Echo: EF=64%, no RWMA, G1DD, mild MR, trace AR -afebrile x >24 hrs, vital signs otherwise stable; continue to monitor -continue to monitor renal function, lytes with diuresis -continue to monitor Is & Os, daily weights -telemetry monitoring -sputum cx: mixed nicho; gram stain negative, noted WBCs -blood cx: prelim negative -continue to monitor respiratory status closely -supplemental oxygen as needed -Neb treatments as needed -noted D-dimer elevation, negative PE, negative DVT -very low suspicion for possible aspiration but if continued fever and/or hemodynamic instability may need to include anaerobic coverage; not needed CAD (coronary artery disease) Coronaries appeared normal on angiogram April 2019 Hypertension Hypothyroidism Well-controlled Lymphedema Macrocytic anemia -has chronic macrocytic anemia; has evidence of vitamin B12 and folate deficiency -replacing vitamin B12, folate -also noted evidence of low iron though ferritin is normal -had reported black stools -baseline Hg is around 11; continue to monitor H/H closely; has been gradually trending down -on PPI Non-insulin dependent type 2 diabetes mellitus NSTEMI (non-ST elevated myocardial infarction) -Noted to have significantly elevated troponins with a delta over 90 which may have precipitated code -Given current need for continued ventilator support, will continue medical management, was already started on a heparin drip, statin, full dose aspirin and Plavix; d/c heparin drip -No acute ischemic changes noted on EKG -Echo done previously as noted below with no noted regional wall motion abnormalities -Continue telemetry monitoring -Cardiology consult by Dr. Turner appreciated; will need outpatient stress testing Surgical History H/O thyroidectomy History of ankle surgery S/P cholecystectomy Family History Other Breast cancer CAD (coronary artery disease) Diabetes Hypertension Social History Smoking and tobacco status: former smoker Quit status (tobacco): has quit using tobacco Former quit date comment: Smoked briefly in her teens. Alcohol intake: never Lives independently: Yes Household members: none Housing: Apartment Current occupational status: disabled History of recent travel: No Current gender identity: Female Vitals/I&O/Wt Last Vital Signs Temp 97.4 F L 09/03/19 16:00 Pulse 66 09/03/19 16:25 Resp 18 09/03/19 16:57 BP 183/105 09/03/19 16:25 Pulse Ox 99 09/03/19 16:57 09/03/19 09/03/19 09/03/19 06:59 14:59 22:59 Intake Total 100 / 100 Balance 100 / 100 Weight last 48 hrs Weight 95.254 kg Physical Exam Urinary Catheter Management^: Mann: Cath Placed During This Visit: yes Urinary Catheter Date of Insertion: 09/03/19 Urinary Catheter Time of Insertion: 16:30 Data : 09/03/19 17:15 09/03/19 17:15 Attestations Medical Necessity Statement*: Anticipating stay in the hospital cross more than 2 midnight currently require surgery, high risk for perioperative complications Coding Level of Care Code Acute [employer] for [employer] Allison
[2019-09-03 21:41] VITALS: BP 151/58; PULSE 75; RESP 18; TEMP 36.7; O2SAT 97
[2019-09-03 22:02] VITALS: RESP 16
[2019-09-03] MEDS: sodium chloride 0.9% 1,000 ML 100 ML IV (22:03)
[2019-09-04] VITALS (37 sets, daily range): BP systolic 96–169; BP diastolic 48–86; PULSE 60–84; RESP 12–20; TEMP 36.3–37.2; O2SAT 74–100
--- NOTE | 2019-09-04 | SCC_ITS ---
Procedure Done: Open reduction internal fixation right hip with intramedullary device 110.7 seconds of fluoroscopic guidance, for a cumulative dose of 12.77 mGy, was provided to Dr. Richard by the radiology department. C-arm images of the RIGHT hip were saved for the patient's permanent record. [facility]
--- NOTE | 2019-09-04 | SCC_ITS ---
Procedure Done: Open reduction internal fixation right hip with intramedullary device 110.7 seconds of fluoroscopic guidance, for a cumulative dose of 12.77 mGy, was provided to Dr. Richard by the radiology department. C-arm images of the RIGHT hip were saved for the patient's permanent record. [facility]
[2019-09-04 00:08] LABS: NT Pro B Type Natriuretic Pept 1548 pg/mL (0-450)
[2019-09-04] MEDS: morphine 4 mg/mL SDV 1 mL IVP ×3 (02:17→12:47)
[2019-09-04 05:29] LABS: Basophils % 0.2 %; Eosinophils % 0.2 %; Hematocrit 24.1 % (37.0-47.0); Hemoglobin 7.2 g/dL (11.5-15.3); Lymphocytes # 0.4 10^3/uL (0.8-4.8); Lymphocytes % 6.9 %; Mean Corpuscular HGB Conc 29.9 g/dL (30.0-36.0); Mean Corpuscular Hemoglobin 27.3 pg (28.0-34.0); Mean Corpuscular Volume 91.3 fL (81-99); Mean Platelet Volume 9.4 fL (7.4-10.4); Monocytes # 0.4 10^3/uL (0.2-0.9); Monocytes % 7.6 %; Neutrophils # 4.5 10^3/uL (1.8-7.7); Neutrophils % 84.5 %; Nucleated Red Blood Cells % 0 %; Platelet Count 253 10^3/cmm (130-400); Red Blood Count 2.64 10^6/uL (4.1-5.3); Red Cell Distribution Width 17.5 % (12.1-15.1); White Blood Count 5.4 10^3/uL (4.0-10.0)
[2019-09-04 05:46] LABS: Anion Gap 14.2 (5-19); Blood Urea Nitrogen 15 mg/dL (8-23); Calcium 7.4 mg/dL (8.5-10.5); Carbon Dioxide 27 mmol/L (22-29); Chloride 99 mmol/L (98-107); Glucose 109 mg/dL (65-115); Osmolality Calculated 279 mOsm/kg (285-295); Potassium 4.2 mmol/L (3.5-5.1); Sodium 136 mmol/L (136-145)
--- NOTE | 2019-09-04 06:07 | PC.NURSE ---
Addendum entered by Vickie Vora LPN 09/04/19 07:12: Had c/o numbness in right leg this am. Has palpable pedal pulse and leg/foot warm Original Note: SHIFT SUMMARY Has rested pretty well since admission. Received IV Morphine X2 for c/o right hip pain with good relief. Is confused but very pleasant. Forgets is to be seen by surgeon today for repair of fracture. Has been NPO since admission. IV infusing at 100ml/hr rate. Mann catheter intact and bed alarm on for safety.
[2019-09-04 06:28] LABS: Glucose Point of Care 103 mg/dL (70-110)
[2019-09-04] MEDS: sodium chloride 0.9% 1,000 ML 100 ML IV ×2 (08:35→22:16)
[2019-09-04] MEDS: levothyroxine 25 mcg Tablet PO (08:36)
[2019-09-04] MEDS: cefTRIAXone 1,000 MG in sodium chloride 0.9% (plus) 50 ML 100 MG IV (08:36)
[2019-09-04] MEDS: levothyroxine 150 mcg Tablet PO (08:36)
[2019-09-04] MEDS: metoprolol tartrate 25 mg Tablet PO (08:36)
[2019-09-04] MEDS: pantoprazole 40 mg SDV IVP (08:37)
[2019-09-04] MEDS: sodium chloride 0.9% (100 ml) 100 ML ×2 (10:21→13:57)
[2019-09-04 12:12] LABS: Glucose Point of Care 112 mg/dL (70-110)
--- NOTE | 2019-09-04 13:12 | PC.NURSE ---
pt bp 124/78, complaining of pain 8/10 IV morphine given per order. Bp now 97/60 pt resting in bad at this time, alert to self and responding well to staff.
--- NOTE | 2019-09-04 13:35 | P.PN_ITS ---
Subjective Subjective: Interval history: Admitted overnight. H&P and labs noted. On examination patient is lying comfortably in bed complaining of pain in her hip. She is asking how did she fall. She is wanting her family to be at bedside. She denies of having any nausea, vomiting, chest pain, headache. Patient is due for OR in the afternoon today for hip fracture with Dr. Richard. Vitals/I&O/Wt Last Vital Signs Temp 98.2 F 09/04/19 12:00 Pulse 68 09/04/19 12:00 Resp 18 09/04/19 12:47 BP 128/74 09/04/19 12:52 Pulse Ox 94 09/04/19 12:00 09/03/19 09/04/19 09/04/19 22:59 06:59 14:59 Intake Total 100 / 100 0 / 100 1000 / 1000 Output Total 400 / 400 Balance 100 / 100 -400 / -300 1000 / 1000 Weight last 48 hrs Weight 95.254 kg Physical Exam Narrative: EXAM NARRATIVE: General: In distress due to pain, AO x3, confused, pale HEENT: PERRLA, pupils bilaterally equal and reactive Chest: Normal vesicular breath sounds, no added sounds, equal good air entry bilaterally CVS: S1-S2 regular, no murmurs, no tachycardia, no gallops, no rubs Abdomen: Soft, nontender, no organomegaly, bowel sounds present Neuro: No focal deficits, no facial deformity, AO x3, power normal in all limbs except difficult to assess in lower limbs because of pain. Urinary Catheter Management^: Mann: Cath Placed During This Visit: yes Reason for Continuing Indwelling Catheter: Perioperative Use in Selected Surgeries Urinary Catheter Date of Insertion: 09/03/19 Urinary Catheter Time of Insertion: 16:30 Data : 09/04/19 04:55 09/04/19 04:55 Micro: Microbiology 09/03/19 16:17 Urine Culture - Preliminary Urine Catheterized Gram Negative Rods Gram Negative Rods#2 A&P Assessment and plan (1) Closed right hip fracture: Status: Acute (2) UTI (urinary tract infection): Status: Acute (3) GI bleed: Status: Acute (4) Normocytic anemia: Status: Acute (5) Non-insulin dependent type 2 diabetes mellitus: Status: Acute (6) Hypertension: Status: Acute Qualifiers: Hypertension type: essential hypertension Qualified Code(s): I10 - Essential (primary) hypertension (7) Hypothyroidism: Status: Acute Qualifiers: Hypothyroidism type: postoperative Qualified Code(s): E89.0 - Postprocedural hypothyroidism (8) CAD (coronary artery disease): Status: Acute Qualifiers: Coronary Disease-Associated Artery/Lesion type: [place] artery [place] vs. transplanted heart: [place] heart Associated angina: with unstable angina Qualified Code(s): I25.110 - Atherosclerotic heart disease of [place] coronary artery with unstable angina pectoris Additional A&P Information Right hip fracture after sustaining a fall while getting out of bed Continue n.p.o. Patient to go to the OR today with Dr. Richard in the afternoon. Perioperative antibiotics, physical therapy, postop anticoagulation as per Dr. Richard. Postop we will continue to monitor hemoglobin. She has a history of cardiac arrest requiring intubation in April, she is very high risk for perioperative complications, her angiogram did not show any coronary ischemia, she has preserved ejection fraction, grade 1 diastolic dysfunction, considering urgent nature of the surgery no further testing is required. Acute on chronic normocytic anemia: Patient was recently in hospital with upper GI bleed at that time her anticoagulation for upper limb DVT was stopped and dose of aspirin was changed to 81 mg daily. Since then she has seen Dr. Sapp on August 29. I do not see any results of endoscopy but was planned. Hemoglobin 7.2 today. Check stool for occult blood. Transfuse 2 unit of PRBC with 20 mg of IV Lasix in between. Continue with oral iron supplementation with ferrous sulfate twice daily. UTI: Recently patient was in hospital at that time had Klebsiella UTI. UA concerning for UTI again. Stat urine culture. For now start patient on Rocephin daily as patient will be going for OR today. Also check blood cultures. Preserved ejection fraction heart failure: Euvolemic right now. At home patient takes 40 mg of Lasix twice daily. We will continue to monitor fluid overload. Postprocedure plan continue patient on 40 mg twice daily. Hypertension: Blood pressure well controlled for now. Continue home dose of metoprolol. Type 2 diabetes: Last A1c 6.9. Stop oral hypoglycemics. Start patient on insulin sliding scale at mild dose protocol before meals and at bedtime. For now as patient is n.p.o. we will do every 6 hourly. Dementia Patient is not a good historian Considering her multiple comorbid conditions, and active surgery she is high risk for cardiac arrest, ME, respiratory failure Restart chronic medication like sertraline, folic acid, fenofibrate, atorvastatin, calcium carbonate, metoprolol 25 mg twice daily. Full code DVT prophylaxis SCDs N.p.o. for procedure today. Attestations Medical Necessity Statement*: Hip fracture, UTI, anemia. Time Spent in Patient Care: Greater than 35 minutes (>than 50% of time spent in counselling and/or direct pt care on unit) . Coding Level of Care Code Acute Dispatcher Tow Truck for g Fwd Diagnoses Closed right hip fracture S72.001A UTI (urinary tract infection) N39.0 GI bleed K92.2 Normocytic anemia D64.9 Non-insulin dependent type 2 diabetes mellitus E11.9 Hypertension I10 Hypertension type: essential hypertension Hypothyroidism E89.0 Hypothyroidism type: postoperative CAD (coronary artery disease) I25.110 Coronary Disease-Associated Artery/Lesion type: [place] artery [place] vs. transplanted heart: [place] heart Associated angina: with unstable angina
[2019-09-04] MEDS: FUROsemide 10 mg/mL SDV 2mL 20 MG IVP (13:58)
[2019-09-04 14:08] LABS: Iron 35 ug/dL (37-145); Percent Saturation 21.6 % (20-50); Total Iron Binding Capacity 162 mcg/dl; Unsaturated Iron Binding 127 ug/dL (112-347)
[2019-09-04] MEDS: ipratropium-albuterol 3 mL Neb INHALATION ×2 (14:58→20:16)
--- NOTE | 2019-09-04 16:09 | PM.CONSULT ---
Providers/Reason For Consult Consulting Physican/Specialty*: Talon Richard MD, orthopedic surgery Reason for Consult*: Right femur fracture Attending Physician: Kishan Riddle MD Primary Care Provider: Viktor Baker MD History of Present Illness History of Present Illness Michelle Becerra is a 74 year old female halfway resident who apparently fell attempted to transfer herself from bed to wheelchair. He typically is a 1 person assist. Yesterday she attempted to transfer herself on her own when she fell she had excruciating pain and deformity the right leg. She was sent to our emergency room where radiographs revealed a subtrochanteric hip fracture. The patient has multiple medical comorbidities and is admitted admitted to the medicine service for dissipated treatment of her femur fracture. Meds/Allergies Home Medications and Allergies Home Medications Medication Instructions Recorded Confirmed Last Taken Type Januvia 100 mg PO DAILY 30 Days #30 tab 05/20/19 09/03/19 09/03/19 Rx levothyroxine 175 mcg PO DAILY 30 Days #30 tab 05/20/19 09/03/19 09/03/19 Rx omeprazole 40 mg PO DAILY 30 Days #30 tab 05/20/19 09/03/19 09/03/19 Rx albuterol sulfate 2.5 mg/0.5 mL 2.5 mg INHALATION Q6H PRN each 06/30/19 09/03/19 Unknown History solution for nebulization cyanocobalamin (vitamin B-12) 500 1,000 mcg PO DAILY 06/30/19 09/03/19 09/03/19 History mcg tablet folic acid 1 mg tablet 1 mg PO DAILY 06/30/19 09/03/19 09/03/19 History metoprolol tartrate 25 mg tablet 25 mg PO BID 06/30/19 09/03/19 09/03/19 History potassium chloride 20 mEq 10 meq PO BID 06/30/19 09/03/19 09/03/19 History tablet,extended release albuterol sulfate 90 mcg/actuation 2 puff INHALATION Q6H PRN 07/06/19 09/03/19 Unknown History aerosol inhaler umeclidinium 62.5 mcg-vilanterol 1 inh INHALATION DAILY 07/06/19 09/03/19 09/03/19 History 25 mcg/actuation powdr for inhalation Myrbetriq 25 mg PO DAILY 07/11/19 09/03/19 09/03/19 History polyethylene glycol 3350 [Miralax] 17 g PO DAILY PRN 07/11/19 09/03/19 07/25/19 History magnesium oxide 400 mg PO BID #60 cap 07/25/19 09/03/19 09/03/19 Rx nitroglycerin 0.4 mg SUBLINGUAL Q5M PRN 07/26/19 09/03/19 Unknown History atorvastatin 40 mg PO BEDTIME #30 tab 08/05/19 09/03/19 09/02/19 Rx aspirin [Adult Aspirin Regimen] 81 mg PO DAILY #30 tab 08/15/19 09/03/19 09/03/19 Rx ferrous sulfate 325 mg PO BIDWM #60 tab 08/15/19 09/03/19 09/03/19 Rx furosemide [Lasix] 40 mg PO BID #60 tab 08/15/19 09/03/19 09/03/19 Rx sertraline 50 mg tablet 50 mg PO DAILY 08/30/19 09/03/19 09/03/19 History Lactobacillus rhamnosus GG 1 cap PO DAILY 09/03/19 09/03/19 09/03/19 History [Culturelle] acetaminophen [Tylenol] 650 mg PO Q6H PRN 09/03/19 09/03/19 Unknown History bisacodyl [Dulcolax (bisacodyl)] 20 mg PO ONCE 09/03/19 09/03/19 Unknown History calcium carbonate 600 mg PO BID 09/03/19 09/03/19 09/03/19 History fenofibrate nanocrystallized 48 mg PO DAILY 09/03/19 09/03/19 09/03/19 History magnesium citrate See Rx Instructions .ROUTE .COMPLEX 09/03/19 09/03/19 Unknown History nystatin See Rx Instructions .ROUTE .COMPLEX 09/03/19 09/03/19 Unknown History Allergies Allergy/AdvReac Type Severity Reaction Status Date / Time methylprednisolone Allergy ALGY-Rash Verified 08/30/19 13:53 [From Solu-Medrol] piperacillin [From Zosyn] Allergy ALGY-Rash Verified 08/30/19 13:53 tazobactam [From Zosyn] Allergy ALGY-Rash Verified 08/30/19 13:53 Current Medications Current Medications Generic Name Dose Route Start Last Admin Trade Name Freq PRN Reason Stop Dose Admin Albuterol/Ipratropium 3 ml 09/04/19 15:00 09/04/19 14:58 Duoneb INHALATION 3 ml Q6H.RESPIRATORY KELLY Administration Sodium Chloride 1,000 mls @ 100 mls/hr 09/03/19 21:39 09/04/19 08:35 Sodium Chloride 0.9% IV 100 mls/hr .Q10H KELLY Administration Ceftriaxone Sodium 1,000 mg/ 50 mls @ 100 mls/hr 09/04/19 09:00 09/04/19 08:36 Sodium Chloride IV 100 mls/hr DAILY KELLY Administration Protocol Insulin Aspart 0 unit 09/04/19 14:00 09/04/19 13:59 Novolog SUBCUT Not Given Q6H KELLY Protocol Levothyroxine Sodium 150 mcg 09/04/19 09:00 09/04/19 08:36 Synthroid PO 150 mcg DAILY KELLY Administration Levothyroxine Sodium 25 mcg 09/04/19 09:00 09/04/19 08:36 Synthroid PO 25 mcg DAILY KELLY Administration Metoprolol Tartrate 25 mg 09/04/19 09:00 09/04/19 08:36 Lopressor PO 25 mg BID KELLY Administration Morphine Sulfate 4 mg 09/03/19 21:39 09/04/19 12:47 Morphine IVP 4 mg Q4H PRN Administration SEVERE PAIN Pantoprazole Sodium 40 mg 09/04/19 08:00 09/04/19 08:37 Protonix IVP 40 mg BIDWM KELLY Administration PFSH Acute PFSH: Medical History Acute respiratory failure with hypoxia -Required intubation following CODE BLUE, extubated on 05/14 -on diuresis due to anasarca; switch to oral diuretics -Has Mann catheter in place, continue to monitor urine output; removal today -off antibiotic treatment; had been on vancomycin and Levaquin; has noted allergy to Zosyn -CXR (05/18) shows resolution of pneumonia -Echo: EF=64%, no RWMA, G1DD, mild MR, trace AR -afebrile x >24 hrs, vital signs otherwise stable; continue to monitor -continue to monitor renal function, lytes with diuresis -continue to monitor Is & Os, daily weights -telemetry monitoring -sputum cx: mixed nicho; gram stain negative, noted WBCs -blood cx: prelim negative -continue to monitor respiratory status closely -supplemental oxygen as needed -Neb treatments as needed -noted D-dimer elevation, negative PE, negative DVT -very low suspicion for possible aspiration but if continued fever and/or hemodynamic instability may need to include anaerobic coverage; not needed CAD (coronary artery disease) Coronaries appeared normal on angiogram April 2019 Hypertension Hypothyroidism Well-controlled Lymphedema Macrocytic anemia -has chronic macrocytic anemia; has evidence of vitamin B12 and folate deficiency -replacing vitamin B12, folate -also noted evidence of low iron though ferritin is normal -had reported black stools -baseline Hg is around 11; continue to monitor H/H closely; has been gradually trending down -on PPI Non-insulin dependent type 2 diabetes mellitus NSTEMI (non-ST elevated myocardial infarction) -Noted to have significantly elevated troponins with a delta over 90 which may have precipitated code -Given current need for continued ventilator support, will continue medical management, was already started on a heparin drip, statin, full dose aspirin and Plavix; d/c heparin drip -No acute ischemic changes noted on EKG -Echo done previously as noted below with no noted regional wall motion abnormalities -Continue telemetry monitoring -Cardiology consult by Dr. Turner appreciated; will need outpatient stress testing Surgical History H/O thyroidectomy History of ankle surgery S/P cholecystectomy Family History Other Breast cancer CAD (coronary artery disease) Diabetes Hypertension Social History Smoking and tobacco status: former smoker Quit status (tobacco): has quit using tobacco Former quit date comment: Smoked briefly in her teens. Alcohol intake: never Lives independently: Yes Household members: none Housing: Apartment Current occupational status: disabled History of recent travel: No Current gender identity: Female Vitals/I&O/Wt Last Vital Signs Temp 97.8 F 09/04/19 15:34 Pulse 69 09/04/19 15:34 Resp 18 09/04/19 15:34 BP 122/83 09/04/19 15:34 Pulse Ox 95 09/04/19 15:34 09/04/19 09/04/19 09/04/19 06:59 14:59 22:59 Intake Total 0 / 100 1350 / 1350 Output Total 400 / 400 Balance -400 / -300 1350 / 1350 Weight last 48 hrs Weight 210 lb Physical Exam Narrative: EXAM NARRATIVE: Patient is comfortable lying in bed. She has a clear deformity of her right lower extremity consisting of shortening and internal rotation. He is able to follow simple commands but is unable to recall specific answers to her questions. She has shortening and internal rotation of her right hip. I feel a palpable right dorsalis pedis pulse. She will flex and extend her toes and ankle on the right. Her sensation is grossly intact to light touch. There is no tenderness in her left lower extremity or either upper extremity. Urinary Catheter Management^: Mann: Cath Placed During This Visit: yes Reason for Continuing Indwelling Catheter: Perioperative Use in Selected Surgeries Urinary Catheter Date of Insertion: 09/03/19 Urinary Catheter Time of Insertion: 16:30 Data Micro: Micro: Microbiology 09/03/19 16:17 Urine Culture - Pr eliminary Urine Catheterize d Gram Negative R ods Gram Negative R ods#2 Imaging^: Xray Ortho: My impression: Radiographs are reviewed of the right hip revealed a spiral subtrochanteric/intertrochanteric hip fracture with a free lesser trochanter fragment A&P Assessment and plan (1) Fracture, subtrochanteric, right femur, closed: The patient is a unstable fracture of the right femur. I discussed options with the patient's daughter.. I told the patient's daughter we could treat this nonoperatively but certainly they would be at risk for medical problems without surgery. They would have problems with pain that would require narcotics for pain control. They would require a long period of bedrest field services analyst risk for pneumonia and skin breakdown. I discussed surgical intervention with the patient. I told them with open reduction internal fixation they should be able to be mobilized and resume ambulatory status. We can eliminate the problems associated with prolonged bed rest and would have better control of pain. Certainly there would be inherent risk with surgery. These would would include the risk of cardiac complications, stroke, infection, and even . I discussed risk of any orthopedic implant including nonunion, malunion, a component failure. I discussed the possible need for component removal. I discussed risk of deep venous thromboses and pulmonary emboli that are present with any treatment and the importance of DVT prophylaxis. The patient's daughter expressed good understanding of alternative treatments, seem to comprehend, and agrees to surgical intervention. Status: Acute Coding Level of Care Code Acute Deckhand Clam Dredge for Idania Allison Diagnoses Fracture, subtrochanteric, right femur, closed S72.21XA
[2019-09-04 16:43] LABS: Glucose Point of Care 101 mg/dL (70-110)
--- NOTE | 2019-09-04 16:54 | P.ANESASSM_ITS ---
Pre-Anesthetic Assessment Pre-Anesthetic Assessment: Height/Weight: Height 1.52 m Weight 95.254 kg Temp Pulse Resp BP Pulse Ox 97.8 F 69 18 122/83 95 09/04/19 15:34 09/04/19 15:34 09/04/19 15:34 09/04/19 15:34 09/04/19 15:34 Preop Diagnosis: Recurrent heart failure, angina Proposed Procedure: Operation Date: 09/04/19 13:10 Proposed Procedures p Trochanteric Femoral Nail(Left) - Talon Richard MD Last intake: Intake Last Liquid Date 09/04/19 Last Liquid Time 08:00 Last Solid Date 09/03/19 Last Solid Time 17:00 Meds/Allergies Current Medications: Current Medications Generic Name Dose Route Start Last Admin Trade Name Freq PRN Reason Stop Dose Admin Albuterol/Ipratrop ium 3 ml 09/04/19 15:00 09/04/19 14:58 Duoneb INHALATION 3 ml Q6H.RESPIRATORY S CH Administration Calcium Carbonate 1 each 09/04/19 18:00 09/04/19 16:51 Oyster Shell 600 mg-Vit D 400unit PO Not Given BID KELLY Ferrous Sulfate 325 mg 09/04/19 18:00 09/04/19 16:51 Ferrous Sulfate PO Not Given BIDWM KELLY Sodium Chloride 1,000 mls @ 100 m ls/hr 09/03/19 21:39 09/04/19 08:35 Sodium Chloride 0.9% IV 100 mls/hr .Q10H KELLY Administration Ceftriaxone Sodium 1,000 mg/ 50 mls @ 100 mls/ hr 09/04/19 09:00 09/04/19 08:36 Sodium Chloride IV 100 mls/hr DAILY KELLY Administration Protocol Insulin Aspart 0 unit 09/04/19 14:00 09/04/19 13:59 Novolog SUBCUT Not Given Q6H KELLY Protocol Levothyroxine Sodi um 150 mcg 09/04/19 09:00 09/04/19 08:36 Synthroid PO 150 mcg DAILY KELLY Administration Levothyroxine Sodi um 25 mcg 09/04/19 09:00 09/04/19 08:36 Synthroid PO 25 mcg DAILY KELLY Administration Metoprolol Tartrat e 25 mg 09/04/19 09:00 09/04/19 16:52 Lopressor PO Not Given BID KELLY Morphine Sulfate 4 mg 06/06/20 21:39 09/04/19 12:47 Morphine IVP 4 mg Q4H PRN Administration SEVERE PAIN Pantoprazole Sodiu m 40 mg 09/04/19 08:00 09/04/19 08:37 Protonix IVP 40 mg BIDWM KELLY Administration PFSH Anesthesia PFSH: Medical History Acute respiratory failure with hypoxia -Required intubation following CODE BLUE, extubated on 05/14 -on diuresis due to anasarca; switch to oral diuretics -Has Mann catheter in place, continue to monitor urine output; removal today -off antibiotic treatment; had been on vancomycin and Levaquin; has noted allergy to Zosyn -CXR (05/18) shows resolution of pneumonia -Echo: EF=64%, no RWMA, G1DD, mild MR, trace AR -afebrile x >24 hrs, vital signs otherwise stable; continue to monitor -continue to monitor renal function, lytes with diuresis -continue to monitor Is & Os, daily weights -telemetry monitoring -sputum cx: mixed nicho; gram stain negative, noted WBCs -blood cx: prelim negative -continue to monitor respiratory status closely -supplemental oxygen as needed -Neb treatments as needed -noted D-dimer elevation, negative PE, negative DVT -very low suspicion for possible aspiration but if continued fever and/or hemodynamic instability may need to include anaerobic coverage; not needed CAD (coronary artery disease) Coronaries appeared normal on angiogram April 2019 Hypertension Hypothyroidism Well-controlled Lymphedema Macrocytic anemia -has chronic macrocytic anemia; has evidence of vitamin B12 and folate deficiency -replacing vitamin B12, folate -also noted evidence of low iron though ferritin is normal -had reported black stools -baseline Hg is around 11; continue to monitor H/H closely; has been gradually trending down -on PPI Non-insulin dependent type 2 diabetes mellitus NSTEMI (non-ST elevated myocardial infarction) -Noted to have significantly elevated troponins with a delta over 90 which may have precipitated code -Given current need for continued ventilator support, will continue medical management, was already started on a heparin drip, statin, full dose aspirin and Plavix; d/c heparin drip -No acute ischemic changes noted on EKG -Echo done previously as noted below with no noted regional wall motion abnormalities -Continue telemetry monitoring -Cardiology consult by Dr. Turner appreciated; will need outpatient stress testing Surgical History H/O thyroidectomy History of ankle surgery S/P cholecystectomy Family History Other Breast cancer CAD (coronary artery disease) Diabetes Hypertension Social History Smoking and tobacco status: former smoker Quit status (tobacco): has quit using tobacco Former quit date comment: Smoked briefly in her teens. Alcohol intake: never Lives independently: Yes Household members: none Housing: Apartment Current occupational status: disabled History of recent travel: No Current gender identity: Female Data Anesthesia CBC & Chem 7: 09/04/19 04:55 09/04/19 04:55 Other Labs: Laboratory Results - last 48 hr 09/03/19 09/03/19 09/03/19 16:17 17:15 17:15 WBC 9.0 RBC 3.01 L Hgb 8.3 L Hct 27.1 L MCV 90.0 MCH 27.6 L MCHC 30.6 RDW 17.6 H Plt Count 319 MPV 9.0 Neut % (Auto) 88.4 Lymph % (Auto) 5.0 [place] % (Auto) 5.3 Eos % (Auto) 0.4 Baso % (Auto) 0.2 Neut # (Auto) 7.9 H Lymph # (Auto) 0.5 L [place] # (Auto) 0.5 Eos # (Auto) 0.0 Baso # (Auto) 0.0 Nucleated RBC % (auto) 0 Nucleated RBCs # 0.0 Sodium Potassium Chloride Carbon Dioxide Anion Gap BUN Creatinine Glucose POC Glucose Calculated Osmolality Calcium Magnesium Iron TIBC % Saturation Unsat Iron Binding Total Bilirubin AST ALT Alkaline Phosphatase NT-Pro-B Natriuret Pep Total Protein Albumin Globulin Urine Color Yellow Urine Appearance Sl cloudy A Urine pH 6.5 Ur Specific [place] 1.005 Urine Protein Neg Urine Glucose (UA) Norm Urine Ketones Negative Urine Blood Neg Urine Nitrate Positive H Urine Bilirubin Neg Urine Urobilinogen Norm Ur Leukocyte Esterase 1+ H Urine RBC 0-4 H Urine WBC 80-100 H Ur Squamous Epith Cells 5-10 H Ur Transition Epith Cell 0-4 Urine Bacteria 1+ H Urine Mucus Trace Blood Type B Negative Rho(D) Type Negative Antibody Screen Negative Crossmatch See Detail 09/03/19 09/03/19 09/04/19 17:15 17:15 04:55 WBC 5.4 RBC 2.64 L Hgb 7.2 L Hct 24.1 L MCV 91.3 MCH 27.3 L MCHC 29.9 L RDW 17.5 H Plt Count 253 MPV 9.4 Neut % (Auto) 84.5 Lymph % (Auto) 6.9 [place] % (Auto) 7.6 Eos % (Auto) 0.2 Baso % (Auto) 0.2 Neut # (Auto) 4.5 Lymph # (Auto) 0.4 L [place] # (Auto) 0.4 Eos # (Auto) 0.0 Baso # (Auto) 0.0 Nucleated RBC % (auto) 0 Nucleated RBCs # 0.0 Sodium 131 L Potassium 3.9 Chloride 95 L Carbon Dioxide 25 Anion Gap 14.9 BUN 20 Creatinine 1.5 H Glucose 156 H POC Glucose Calculated Osmolality 272 L Calcium 7.1 L Magnesium 2.1 Iron TIBC % Saturation Unsat Iron Binding Total Bilirubin 0.5 AST 17 ALT 8 Alkaline Phosphatase 51 NT-Pro-B Natriuret Pep 1548 H Total Protein 5.6 L Albumin 3.2 L Globulin 2.4 Urine Color Urine Appearance Urine pH Ur Specific [place] Urine Protein Urine Glucose (UA) Urine Ketones Urine Blood Urine Nitrate Urine Bilirubin Urine Urobilinogen Ur Leukocyte Esterase Urine RBC Urine WBC Ur Squamous Epith Cells Ur Transition Epith Cell Urine Bacteria Urine Mucus Blood Type Rho(D) Type Antibody Screen Crossmatch 09/04/19 09/04/19 09/04/19 04:55 04:55 06:21 WBC RBC Hgb Hct MCV MCH MCHC RDW Plt Count MPV Neut % (Auto) Lymph % (Auto) [place] % (Auto) Eos % (Auto) Baso % (Auto) Neut # (Auto) Lymph # (Auto) [place] # (Auto) Eos # (Auto) Baso # (Auto) Nucleated RBC % (auto) Nucleated RBCs # Sodium 136 Potassium 4.2 Chloride 99 Carbon Dioxide 27 Anion Gap 14.2 BUN 15 Creatinine 1.5 H Glucose 109 POC Glucose 103 Calculated Osmolality 279 L Calcium 7.4 L Magnesium Iron 35 L TIBC 162 % Saturation 21.6 Unsat Iron Binding 127 Total Bilirubin AST ALT Alkaline Phosphatase NT-Pro-B Natriuret Pep Total Protein Albumin Globulin Urine Color Urine Appearance Urine pH Ur Specific [place] Urine Protein Urine Glucose (UA) Urine Ketones Urine Blood Urine Nitrate Urine Bilirubin Urine Urobilinogen Ur Leukocyte Esterase Urine RBC Urine WBC Ur Squamous Epith Cells Ur Transition Epith Cell Urine Bacteria Urine Mucus Blood Type Rho(D) Type Antibody Screen Crossmatch 09/04/19 09/04/19 12:07 16:39 WBC RBC Hgb Hct MCV MCH MCHC RDW Plt Count MPV Neut % (Auto) Lymph % (Auto) [place] % (Auto) Eos % (Auto) Baso % (Auto) Neut # (Auto) Lymph # (Auto) [place] # (Auto) Eos # (Auto) Baso # (Auto) Nucleated RBC % (auto) Nucleated RBCs # Sodium Potassium Chloride Carbon Dioxide Anion Gap BUN Creatinine Glucose POC Glucose 112 101 Calculated Osmolality Calcium Magnesium Iron TIBC % Saturation Unsat Iron Binding Total Bilirubin AST ALT Alkaline Phosphatase NT-Pro-B Natriuret Pep Total Protein Albumin Globulin Urine Color Urine Appearance Urine pH Ur Specific [place] Urine Protein Urine Glucose (UA) Urine Ketones Urine Blood Urine Nitrate Urine Bilirubin Urine Urobilinogen Ur Leukocyte Esterase Urine RBC Urine WBC Ur Squamous Epith Cells Ur Transition Epith Cell Urine Bacteria Urine Mucus Blood Type Rho(D) Type Antibody Screen Crossmatch Micro: Microbiology 09/03/19 16:17 Urine Culture - Preliminary Urine Catheterized Gram Negative Rods Gram Negative Rods#2 Cardiac Studies: No Data to Display
--- NOTE | 2019-09-04 17:05 | ANES.PREANE2 ---
Pre-Anesthetic Assessment Pre-Anesthetic Assessment: Height/Weight: Height 1.52 m Weight 95.254 kg Temp Pulse Resp BP Pulse Ox 97.8 F 69 18 122/83 95 09/04/19 15:34 09/04/19 15:34 09/04/19 15:34 09/04/19 15:34 09/04/19 15:34 Preop Diagnosis: Recurrent heart failure, angina Proposed Procedure: Operation Date: 09/04/19 13:10 Proposed Procedures p Trochanteric Femoral Nail(Left) - Talon Richard MD Was Beta Kiya taken within 24 hours: Yes Last intake: Intake Last Liquid Date 09/04/19 Last Liquid Time 08:00 Last Solid Date 09/03/19 Last Solid Time 17:00 Social: Social History: No alcohol and No tobacco Airway: Submandibular: WNL Cervical ROM: WNL MP: 2 Additional comments: Edentulous Pulmonary: Pulmonary: PRESTON and SOB (Likely related to fluid overload) CV/HEM: CV/HEM: Anemia (transfused 2 units this AM) and CHF : : Chronic renal Insufficiency GI: Comments: GI Bleed Metabolic: Metabolic: Morbid obesity Neuropsych: Neuropsych: Dementia Comments: Globally Disoriented Anesthetic Plan: ASA status: 3E Anesthesia: General Other: GETA Risk of > 500 ml blood loss (7ml/kg in children): No Meds/Allergies Current Medications: Current Medications Generic Name Dose Route Start Last Admin Trade Name Freq PRN Reason Stop Dose Admin Albuterol/Ipratrop ium 3 ml 09/04/19 15:00 09/04/19 14:58 Duoneb INHALATION 3 ml Q6H.RESPIRATORY S CH Administration Calcium Carbonate 1 each 09/04/19 18:00 09/04/19 16:51 Oyster Shell 600 mg-Vit D 400unit PO Not Given BID KELLY Ferrous Sulfate 325 mg 09/04/19 18:00 09/04/19 16:51 Ferrous Sulfate PO Not Given BIDWM KELLY Sodium Chloride 1,000 mls @ 100 m ls/hr 09/03/19 21:39 09/04/19 08:35 Sodium Chloride 0.9% IV 100 mls/hr .Q10H KELLY Administration Ceftriaxone Sodium 1,000 mg/ 50 mls @ 100 mls/ hr 09/04/19 09:00 09/04/19 08:36 Sodium Chloride IV 100 mls/hr DAILY KELLY Administration Protocol Insulin Aspart 0 unit 09/04/19 14:00 09/04/19 13:59 Novolog SUBCUT Not Given Q6H [facility] Protocol Levothyroxine Sodi um 150 mcg 09/04/19 09:00 09/04/19 08:36 Synthroid PO 150 mcg DAILY KELLY Administration Levothyroxine Sodi um 25 mcg 09/04/19 09:00 09/04/19 08:36 Synthroid PO 25 mcg DAILY KELLY Administration Metoprolol Tartrat e 25 mg 09/04/19 09:00 09/04/19 16:52 Lopressor PO Not Given BID KELLY Morphine Sulfate 4 mg 09/03/19 21:39 09/04/19 12:47 Morphine IVP 4 mg Q4H PRN Administration SEVERE PAIN Pantoprazole Sodiu m 40 mg 09/04/19 08:00 09/04/19 08:37 Protonix IVP 40 mg BIDWM KELLY Administration PFSH Anesthesia PFSH: Medical History Acute respiratory failure with hypoxia -Required intubation following CODE BLUE, extubated on 05/14 -on diuresis due to anasarca; switch to oral diuretics -Has Mann catheter in place, continue to monitor urine output; removal today -off antibiotic treatment; had been on vancomycin and Levaquin; has noted allergy to Zosyn -CXR (05/18) shows resolution of pneumonia -Echo: EF=64%, no RWMA, G1DD, mild MR, trace AR -afebrile x >24 hrs, vital signs otherwise stable; continue to monitor -continue to monitor renal function, lytes with diuresis -continue to monitor Is & Os, daily weights -telemetry monitoring -sputum cx: mixed nicho; gram stain negative, noted WBCs -blood cx: prelim negative -continue to monitor respiratory status closely -supplemental oxygen as needed -Neb treatments as needed -noted D-dimer elevation, negative PE, negative DVT -very low suspicion for possible aspiration but if continued fever and/or hemodynamic instability may need to include anaerobic coverage; not needed CAD (coronary artery disease) Coronaries appeared normal on angiogram April 2019 Hypertension Hypothyroidism Well-controlled Lymphedema Macrocytic anemia -has chronic macrocytic anemia; has evidence of vitamin B12 and folate deficiency -replacing vitamin B12, folate -also noted evidence of low iron though ferritin is normal -had reported black stools -baseline Hg is around 11; continue to monitor H/H closely; has been gradually trending down -on PPI Non-insulin dependent type 2 diabetes mellitus NSTEMI (non-ST elevated myocardial infarction) -Noted to have significantly elevated troponins with a delta over 90 which may have precipitated code -Given current need for continued ventilator support, will continue medical management, was already started on a heparin drip, statin, full dose aspirin and Plavix; d/c heparin drip -No acute ischemic changes noted on EKG -Echo done previously as noted below with no noted regional wall motion abnormalities -Continue telemetry monitoring -Cardiology consult by Dr. Turner appreciated; will need outpatient stress testing Surgical History H/O thyroidectomy History of ankle surgery S/P cholecystectomy Family History Other Breast cancer CAD (coronary artery disease) Diabetes Hypertension Social History Smoking and tobacco status: former smoker Quit status (tobacco): has quit using tobacco Former quit date comment: Smoked briefly in her teens. Alcohol intake: never Lives independently: Yes Household members: none Housing: Apartment Current occupational status: disabled History of recent travel: No Current gender identity: Female Data Anesthesia CBC & Chem 7: 09/04/19 04:55 09/04/19 04:55 Other Labs: Laboratory Results - last 48 hr 09/03/19 09/03/19 09/03/19 16:17 17:15 17:15 WBC 9.0 RBC 3.01 L Hgb 8.3 L Hct 27.1 L MCV 90.0 MCH 27.6 L MCHC 30.6 RDW 17.6 H Plt Count 319 MPV 9.0 Neut % (Auto) 88.4 Lymph % (Auto) 5.0 [place] % (Auto) 5.3 Eos % (Auto) 0.4 Baso % (Auto) 0.2 Neut # (Auto) 7.9 H Lymph # (Auto) 0.5 L [place] # (Auto) 0.5 Eos # (Auto) 0.0 Baso # (Auto) 0.0 Nucleated RBC % (auto) 0 Nucleated RBCs # 0.0 Sodium Potassium Chloride Carbon Dioxide Anion Gap BUN Creatinine Glucose POC Glucose Calculated Osmolality Calcium Magnesium Iron TIBC % Saturation Unsat Iron Binding Total Bilirubin AST ALT Alkaline Phosphatase NT-Pro-B Natriuret Pep Total Protein Albumin Globulin Urine Color Yellow Urine Appearance Sl cloudy A Urine pH 6.5 Ur Specific [place] 1.005 Urine Protein Neg Urine Glucose (UA) Norm Urine Ketones Negative Urine Blood Neg Urine Nitrate Positive H Urine Bilirubin Neg Urine Urobilinogen Norm Ur Leukocyte Esterase 1+ H Urine RBC 0-4 H Urine WBC 80-100 H Ur Squamous Epith Cells 5-10 H Ur Transition Epith Cell 0-4 Urine Bacteria 1+ H Urine Mucus Trace Blood Type B Negative Rho(D) Type Negative Antibody Screen Negative Crossmatch See Detail 09/03/19 09/03/19 09/04/19 17:15 17:15 04:55 WBC 5.4 RBC 2.64 L Hgb 7.2 L Hct 24.1 L MCV 91.3 MCH 27.3 L MCHC 29.9 L RDW 17.5 H Plt Count 253 MPV 9.4 Neut % (Auto) 84.5 Lymph % (Auto) 6.9 [place] % (Auto) 7.6 Eos % (Auto) 0.2 Baso % (Auto) 0.2 Neut # (Auto) 4.5 Lymph # (Auto) 0.4 L [place] # (Auto) 0.4 Eos # (Auto) 0.0 Baso # (Auto) 0.0 Nucleated RBC % (auto) 0 Nucleated RBCs # 0.0 Sodium 131 L Potassium 3.9 Chloride 95 L Carbon Dioxide 25 Anion Gap 14.9 BUN 20 Creatinine 1.5 H Glucose 156 H POC Glucose Calculated Osmolality 272 L Calcium 7.1 L Magnesium 2.1 Iron TIBC % Saturation Unsat Iron Binding Total Bilirubin 0.5 AST 17 ALT 8 Alkaline Phosphatase 51 NT-Pro-B Natriuret Pep 1548 H Total Protein 5.6 L Albumin 3.2 L Globulin 2.4 Urine Color Urine Appearance Urine pH Ur Specific [place] Urine Protein Urine Glucose (UA) Urine Ketones Urine Blood Urine Nitrate Urine Bilirubin Urine Urobilinogen Ur Leukocyte Esterase Urine RBC Urine WBC Ur Squamous Epith Cells Ur Transition Epith Cell Urine Bacteria Urine Mucus Blood Type Rho(D) Type Antibody Screen Crossmatch 09/04/19 09/04/19 09/04/19 04:55 04:55 06:21 WBC RBC Hgb Hct MCV MCH MCHC RDW Plt Count MPV Neut % (Auto) Lymph % (Auto) [place] % (Auto) Eos % (Auto) Baso % (Auto) Neut # (Auto) Lymph # (Auto) [place] # (Auto) Eos # (Auto) Baso # (Auto) Nucleated RBC % (auto) Nucleated RBCs # Sodium 136 Potassium 4.2 Chloride 99 Carbon Dioxide 27 Anion Gap 14.2 BUN 15 Creatinine 1.5 H Glucose 109 POC Glucose 103 Calculated Osmolality 279 L Calcium 7.4 L Magnesium Iron 35 L TIBC 162 % Saturation 21.6 Unsat Iron Binding 127 Total Bilirubin AST ALT Alkaline Phosphatase NT-Pro-B Natriuret Pep Total Protein Albumin Globulin Urine Color Urine Appearance Urine pH Ur Specific [place] Urine Protein Urine Glucose (UA) Urine Ketones Urine Blood Urine Nitrate Urine Bilirubin Urine Urobilinogen Ur Leukocyte Esterase Urine RBC Urine WBC Ur Squamous Epith Cells Ur Transition Epith Cell Urine Bacteria Urine Mucus Blood Type Rho(D) Type Antibody Screen Crossmatch 09/04/19 09/04/19 12:07 16:39 WBC RBC Hgb Hct MCV MCH MCHC RDW Plt Count MPV Neut % (Auto) Lymph % (Auto) [place] % (Auto) Eos % (Auto) Baso % (Auto) Neut # (Auto) Lymph # (Auto) [place] # (Auto) Eos # (Auto) Baso # (Auto) Nucleated RBC % (auto) Nucleated RBCs # Sodium Potassium Chloride Carbon Dioxide Anion Gap BUN Creatinine Glucose POC Glucose 112 101 Calculated Osmolality Calcium Magnesium Iron TIBC % Saturation Unsat Iron Binding Total Bilirubin AST ALT Alkaline Phosphatase NT-Pro-B Natriuret Pep Total Protein Albumin Globulin Urine Color Urine Appearance Urine pH Ur Specific [place] Urine Protein Urine Glucose (UA) Urine Ketones Urine Blood Urine Nitrate Urine Bilirubin Urine Urobilinogen Ur Leukocyte Esterase Urine RBC Urine WBC Ur Squamous Epith Cells Ur Transition Epith Cell Urine Bacteria Urine Mucus Blood Type Rho(D) Type Antibody Screen Crossmatch Micro: Microbiology 09/03/19 16:17 Urine Culture - Preliminary Urine Catheterized Gram Negative Rods Gram Negative Rods#2 Cardiac Studies: No Data to Display
[2019-09-04] MEDS: clindamycin 600 MG/50 ML PREMIX 100 MG IV (17:22)
--- NOTE | 2019-09-04 18:41 | XR_ITS ---
WS: [id number] C-ARM RADIOGRAPHS RIGHT HIP; 6 IMAGES HISTORY: OR PICS COMPARISON: None available. Intraoperative imaging during intramedullary siena and screw fixation of a proximal RIGHT femur fractur e. Fracture in good position and alignment. XR/XR hip RT 2-3V wo/w pel* [id number] IMPRESSION: Intraoperative imaging during ORIF proximal RIGHT femur fracture now in good po sition and alignment.
--- NOTE | 2019-09-04 18:51 | PM.OP ---
Operative Report Date of procedure: September 04, 2019 Pre-op Diagnosis: Right subtrochanteric femur fracture Post-op diagnosis: same Post-op Findings: Same Procedure Done: Open reduction internal fixation right hip with intramedullary device Pathology: none sent Anesthesia: General Estimated blood loss (mL): 200 Complications: None Findings: The patient had a spiral subtrochanteric intertrochanteric hip fracture with a free lesser trochanteric fragment Condition: stable Disposition: PACU Procedure: The patient was taken to the operating room. He was given 1 g of Ancef. He was positioned on the fracture table with the right lower extremity in gentle traction. A timeout was performed. A 2 cm long incision was made proximal to the greater trochanter scalpel blade. Dissection was carried down to tip the greater trochanter. A guidepin was passed manually from the tip of the trochanter down the shaft. The 4 cm lateral incision was made. A reduction clamp was used to approximate the proximal to the distal fragment. The proximal reamer was utilized to open up the proximal canal. A ball-tipped guidewire was passed and sequential reaming accomplished up to 12.5 mm. An 11 mm 340 mm [employer] gamma nail was passed down the canal without difficulty. Under visualization of fluoroscopy a guidepin was driven up into the head and neck at 125? angle. It was measured at 100 mm in length. A 100 mm lag screw was then placed and locked into place with the proximal locking pole. The static guides were then used to pass the 40 mm distal locking screw. Intraoperative imaging was obtained verifying satisfactory position of the hardware and reduction of the fracture. Deep tissues were closed with 0 Vicryl as were subcutaneous tissues. The skin was closed with skin viridiana. Sterile dressings were applied. The patient was extubated and taken to recovery room in stable condition.
--- NOTE | 2019-09-04 18:54 | ANE.PACU2 ---
Inpatient post-anesthesia follow up: Airway intact: Yes Vital signs: Temperature 97.4 F Pulse Rate [Left R adial] 66 Pulse Rate 68 Respiratory Rate 18 Blood Pressure [Ri ght Arm] 128/47 Blood Pressure 125/48 Pulse Oximetry 97 Oxygen Delivery Me thod Room Air Oxygen Flow Rate 2 Fraction of Inspir ed Oxygen Hydration adequate: Yes Nausea and vomiting: No Pain level: 1 Mental status: Baseline
[2019-09-04] MEDS: fentaNYL 50 mcg/mL INJ 2mL IVP (19:00)
[2019-09-04] MEDS: HYDROcodone-acetaminophen 5-325 mg Tablet PO (19:58)
[2019-09-04] MEDS: morphine 4 mg/mL SDV 1 mL 2 MG IVP (20:05)
[2019-09-04 21:03] LABS: Glucose Point of Care 135 mg/dL (70-110)
[2019-09-04] MEDS: atorvastatin 40 mg Tablet PO (22:06)
[2019-09-05] VITALS (16 sets, daily range): BP systolic 91–117; BP diastolic 45–68; PULSE 78–111; RESP 16–20; TEMP 36.4–36.8; O2SAT 92–100
[2019-09-05] MEDS: HYDROcodone-acetaminophen 5-325 mg Tablet PO ×5 (01:21→21:13)
[2019-09-05] MEDS: clindamycin 600 MG/50 ML PREMIX 100 MG IV ×3 (01:31→17:09)
[2019-09-05] MEDS: ipratropium-albuterol 3 mL Neb INHALATION ×4 (02:05→20:12)
[2019-09-05 02:20] LABS: Glucose Point of Care 121 mg/dL (70-110)
[2019-09-05] MEDS: morphine 4 mg/mL SDV 1 mL 2 MG IVP ×2 (04:02→23:21)
[2019-09-05 05:40] LABS: Basophils % 0.4 %; Eosinophils % 0.2 %; Hematocrit 28.1 % (37.0-47.0); Hemoglobin 8.2 g/dL (11.5-15.3); Lymphocytes # 0.3 10^3/uL (0.8-4.8); Lymphocytes % 5.1 %; Mean Corpuscular HGB Conc 29.2 g/dL (30.0-36.0); Mean Corpuscular Hemoglobin 28.5 pg (28.0-34.0); Mean Corpuscular Volume 97.6 fL (81-99); Mean Platelet Volume 9.7 fL (7.4-10.4); Monocytes # 0.3 10^3/uL (0.2-0.9); Monocytes % 5.8 %; Neutrophils # 4.8 10^3/uL (1.8-7.7); Nucleated Red Blood Cells % 0 %; Platelet Count 186 10^3/cmm (130-400); Red Blood Count 2.88 10^6/uL (4.1-5.3); Red Cell Distribution Width 17.4 % (12.1-15.1); White Blood Count 5.5 10^3/uL (4.0-10.0)
[2019-09-05 06:01] LABS: Alanine Aminotransferase 9 U/L (0-33); Albumin Level 2.6 g/dL (3.5-5.2); Alkaline Phosphatase 44 IU/L (35-105); Anion Gap 16.5 (5-19); Aspartate Amino Transferase 17 U/L (0-32); Blood Urea Nitrogen 15 mg/dL (8-23); Calcium 6.2 mg/dL (8.5-10.5); Carbon Dioxide 21 mmol/L (22-29); Chloride 106 mmol/L (98-107); Globulin 1.7 g/dL (1.3-4.6); Glucose 139 mg/dL (65-115); Osmolality Calculated 289 mOsm/kg (285-295); Potassium 3.5 mmol/L (3.5-5.1); Sodium 140 mmol/L (136-145); Total Bilirubin 0.3 mg/dL (0.15-1.2); Total Protein 4.3 g/dL (6.6-8.7)
[2019-09-05 07:03] LABS: Glucose Point of Care 155 mg/dL (70-110)
[2019-09-05] MEDS: sertraline 50 mg Tablet PO (08:03)
[2019-09-05] MEDS: ferrous sulfate EC 325 mg Tablet PO ×2 (08:03→17:09)
[2019-09-05] MEDS: calcium carb-vit d 600mg/400unit 1 Tablet 1 EACH PO ×2 (08:03→17:09)
[2019-09-05] MEDS: levothyroxine 25 mcg Tablet PO (08:03)
[2019-09-05] MEDS: levothyroxine 150 mcg Tablet PO (08:03)
[2019-09-05] MEDS: folic acid 1 mg Tablet PO (08:03)
[2019-09-05] MEDS: fenofibrate 48 mg Tablet PO (08:03)
[2019-09-05] MEDS: cefTRIAXone 1,000 MG in sodium chloride 0.9% (plus) 50 ML 100 MG IV (08:04)
[2019-09-05] MEDS: pantoprazole 40 mg SDV IVP ×2 (08:04→17:09)
[2019-09-05] MEDS: budesonide 0.5 mg/2 mL Neb INHALATION ×2 (08:33→20:11)
--- NOTE | 2019-09-05 11:50 | PC.OT ---
OT note: Pt refused OT as she reported she was in too much pain to participate at this time. RN reported pt has had pain meds. Will attempt again later as able.
[2019-09-05] MEDS: sodium chloride 0.9% 1,000 ML 100 ML IV (12:06)
--- NOTE | 2019-09-05 13:22 | PM.PN ---
Subjective Subjective: Interval history: Patient confused. Still complains of pain right femur. Vitals/I&O/Wt Last Vital Signs Temp 97.7 F 09/05/19 11:52 Pulse 89 09/05/19 11:52 Resp 18 09/05/19 11:52 BP 106/66 09/05/19 11:52 Pulse Ox 92 09/05/19 11:52 09/04/19 09/05/19 09/05/19 22:59 06:59 14:59 Intake Total 1250 / 2650 530 / 3180 1480 / 1480 Output Total 1650 / 1650 325 / 1975 Balance -400 / 1000 205 / 1205 1480 / 1480 Weight last 48 hrs Weight 210 lb Physical Exam Narrative: EXAM NARRATIVE: Right hip dressing clean and dry. Expected swelling right thigh. Urinary Catheter Management^: Mann: Cath Placed During This Visit: yes, but has since been removed by the nurse Reason for Continuing Indwelling Catheter: Decision to DC Catheter Urinary Catheter Date of Insertion: 09/03/19 Urinary Catheter Time of Insertion: 16:30 Date Urinary Catheter Removed: 09/05/19 Time Urinary Catheter Discontinued: 06:30 Data : 09/05/19 05:22 09/05/19 05:22 Micro: Microbiology 09/03/19 16:17 Urine Culture - Final Urine Catheterized Enterobacter asburiae Citrobacter Freundii Complex 09/04/19 05:22 Blood Culture - Preliminary Blood SPECIMEN COLLECTED 09/04/19 22:09 Blood Culture - Preliminary Blood SPECIMEN COLLECTED A&P Assessment and plan (1) Postoperative state: Patient was transferred her only is from bed to chair in the intermediate. She had a very comminuted fracture and I think it would be best to continue with bed to chair transfers only. He is okay for transfer to the intermediate when cleared with medicine Status: Acute (2) Fracture, subtrochanteric, right femur, closed: Status: Acute Attestations Medical Necessity Statement*: As per medicine Coding Level of Care Code Acute Database Marketing Specialist for Idania Allison Diagnoses Postoperative state Z98.890 Fracture, subtrochanteric, right femur, closed S72.21XA
--- NOTE | 2019-09-05 13:22 | PM.PN ---
Subjective Subjective: Interval history: Chart reviewed, patient known to me from previous admission. She is POD # 1 s/p R ORIF secondary to comminuted R proximal femur fracture. VSS, afebrile, had 325 mL urine output overnight. Received 2 units of PRBCs with follow up hemoglobin up to 8.2 this AM. Mann catheter removed this morning. Is on clindamycin for vi-op prophylaxis. Urine cultures noted. Medications: Reviewed: Yes Medication Review Details: Active Medications Generic Name Dose Route Start Last Admin Trade Name Freq PRN Reason Stop Dose Admin Hydrocodone Bitart /Acetaminophen 1 - 2 tab 09/04/19 19:37 09/05/19 12:03 [place] 5-325 Mg PO 1 tab Q4H PRN Administration BREAKTHROUGH PAIN Albuterol/Ipratrop ium 3 ml 09/04/19 15:00 09/05/19 08:33 Duoneb INHALATION 3 ml Q6H.RESPIRATORY S CH Administration Atorvastatin Calci um 40 mg 09/04/19 21:00 09/04/19 22:06 Lipitor PO 40 mg BEDTIME KELLY Administration Budesonide 0.5 mg 09/04/19 18:00 09/05/19 08:33 Pulmicort INHALATION 0.5 mg BID KELLY Administration Calcium Carbonate 1 each 09/04/19 18:00 09/05/19 08:03 Oyster Shell 600 mg-Vit D 400unit PO 1 each BID KELLY Administration Dextrose 25 ml 09/04/19 13:48 D50w IVP ONCE PRN hypoglycemia prot ocol Protocol Dextrose 50 ml 09/04/19 13:48 D50w IVP PRN PRN hypoglycemia prot ocol Protocol Fenofibrate 48 mg 09/05/19 09:00 09/05/19 08:03 Tricor PO 48 mg DAILY KELLY Administration Ferrous Sulfate 325 mg 09/04/19 18:00 09/05/19 08:03 Ferrous Sulfate PO 325 mg BIDWM KELLY Administration Folic Acid 1 mg 09/05/19 09:00 09/05/19 08:03 Folic Acid PO 1 mg DAILY KELLY Administration Glucagon 1 mg 09/04/19 13:48 Glucagen IM ONCE PRN Adult Acute Hypog lycemia Prot. Protocol Sodium Chloride 1,000 mls @ 100 m ls/hr 09/03/19 21:39 09/05/19 12:06 Sodium Chloride 0.9% IV 100 mls/hr .Q10H KELLY Administration Dextrose 500 mls @ 100 mls /hr 09/04/19 13:48 D5w IV ONCE PRN Adult Acute Hypog lycemia Prot Protocol Clindamycin HCl/De xtrose 600 mg in 50 mls @ 100 mls/hr 09/05/19 01:00 09/05/19 09:46 Cleocin IV 09/05/19 17:29 100 mls/hr Q8H KELLY Administration Protocol Insulin Aspart 0 unit 09/04/19 14:00 09/05/19 08:04 Novolog SUBCUT 2 unit Q6H KELLY Administration Protocol Levofloxacin 750 mg 09/05/19 13:30 Levaquin PO DAILY KELLY Protocol Levothyroxine Sodi um 150 mcg 09/04/19 09:00 09/05/19 08:03 Synthroid PO 150 mcg DAILY KELLY Administration Levothyroxine Sodi um 25 mcg 09/04/19 09:00 09/05/19 08:03 Synthroid PO 25 mcg DAILY KELLY Administration Metoprolol Tartrat e 25 mg 09/04/19 09:00 09/05/19 09:47 Lopressor PO Not Given BID [facility] Morphine Sulfate 2 mg 09/04/19 19:37 09/05/19 04:02 Morphine IVP 2 mg Q1H PRN Administration PAIN not managed by oral agent Nitroglycerin 0.4 mg 09/04/19 11:50 Nitrostat SUBLINGUAL Q5M PRN Chest Pain Ondansetron HCl 4 mg 09/04/19 19:37 Zofran IVP Q4H PRN NAUSEA AND VOMITI NG Pantoprazole [place] m 40 mg 09/04/19 08:00 09/05/19 08:04 Protonix IVP 40 mg BIDWM KELLY Administration Sertraline HCl 50 mg 09/05/19 09:00 09/05/19 08:03 Zoloft PO 50 mg DAILY KELLY Administration methylprednisolone [From Solu-Medrol] Allergy (Verified 08/30/19 13:53) ALGY-Rash piperacillin [From Zosyn] Allergy (Verified 08/30/19 13:53) ALGY-Rash tazobactam [From Zosyn] Allergy (Verified 08/30/19 13:53) ALGY-Rash Vitals/I&O/Wt Last Vital Signs Temp 97.7 F 09/05/19 11:52 Pulse 89 09/05/19 11:52 Resp 18 09/05/19 11:52 BP 106/66 09/05/19 11:52 Pulse Ox 92 09/05/19 11:52 09/04/19 09/05/19 09/05/19 22:59 06:59 14:59 Intake Total 1250 / 2650 530 / 3180 1480 / 1480 Output Total 1650 / 1650 325 / 1975 Balance -400 / 1000 205 / 1205 1480 / 1480 Weight last 48 hrs Weight 95.254 kg Physical Exam Const: COMMON NORMALS: no acute distress GENERAL APPEARANCE: cooperative and comfortable NUTRITIONAL APPEARANCE: obese morbidly obese ORIENTATION/CONSCIOUSNESS: Yes awake and Yes confused (repetitive in her questions) HENMT: COMMON NORMALS: normocephalic, atraumatic, hearing grossly normal bilaterally and moist oral mucous membranes HEAD & SCALP: normocephalic and atraumatic Eye: COMMON NORMALS: Equal, round and reactive pupils present, EOMs intact bilaterally and conjunctivae normal CONJUNCTIVA: Yes conjunctivae normal PUPIL: Yes Equal, round and reactive pupils present Neck/C-Spine: COMMON NORMALS: full ROM GENERAL: Yes normal visual inspection and Yes trachea midline Resp: COMMON NORMALS: normal respiratory effort, No retractions, No use of accessory muscles and clear to auscultation bilaterally EFFORT & INSPECTION: Yes able to speak in complete sentences, Yes symmetric chest movement and No tachypneic AUSCULTATION: clear to auscultation bilaterally OTHER: -on 2 L NC Cardio: COMMON NORMALS: regular rate, regular rhythm, S1 normal heart sound present, S2 normal heart sound present and No murmurs present (Cardio) RATE: regular rate RHYTHM: regular rhythm HEART SOUNDS: S1 normal heart sound present and S2 normal heart sound present GI: COMMON NORMALS: Normal to inspection, nondistended, normoactive bowel sounds present, Soft to palpation and non-tender INSPECTION: Yes central obesity PALPATION: Yes Soft to palpation : BLADDER/KIDNEY EXAM: No catheter in place Extremity: COMMON NORMALS: normal to inspection, full ROM, no clubbing, cyanosis or edema and no pedal edema NARRATIVE EXTREMITY EXAM: -RLE: noted incision sites with clean/dry/intact dressings; R thigh soft to palpation, no noted hematoma Neuro: COMMON NORMALS: moves all extremities, no focal motor deficits and no sensory deficits noted Psych: COMMON NORMALS: mental status grossly normal, cooperative, normal affect and speech normal SPEECH: Yes normal speech THOUGHT PROCESS: confused Skin: COMMON NORMALS: no rashes or lesions noted, no jaundice, no petechiae and no mottling GENERAL SKIN EXAM: no rashes or lesions noted Urinary Catheter Management^: Mann: Cath Placed During This Visit: yes, but has since been removed by the nurse Reason for Continuing Indwelling Catheter: Decision to DC Catheter Urinary Catheter Date of Insertion: 09/03/19 Urinary Catheter Time of Insertion: 16:30 Date Urinary Catheter Removed: 09/05/19 Time Urinary Catheter Discontinued: 06:30 Data : 09/05/19 05:22 09/05/19 05:22 Micro: Microbiology 09/03/19 16:17 Urine Culture - Final Urine Catheterized Enterobacter asburiae Citrobacter Freundii Complex 09/04/19 05:22 Blood Culture - Preliminary Blood SPECIMEN COLLECTED 09/04/19 22:09 Blood Culture - Preliminary Blood SPECIMEN COLLECTED A&P Assessment and plan (1) Fracture, subtrochanteric, right femur, closed: -Noted to have comminuted right proximal femur fracture on imaging -POD # 1, s/p ORIF by Dr. Richard -Ortho consult appreciated -EBL-200 mL; has underlying anemia and has already required 2 units PRBCs so continue to monitor H/H closely -Mann catheter removed this AM; has not voided yet -VSS; continue to monitor -PT/OT evaluations -fall precautions -on Clindamycin for periop abx ppx -supplemental oxygen as needed, IS -d/c IVF due to risk of fluid overload; encourage oral hydration Status: Acute Qualifiers: Encounter type: initial encounter Fracture alignment: nondisplaced Qualified Code(s): S72.24XA - Nondisplaced subtrochanteric fracture of right femur, initial encounter for closed fracture (2) UTI (urinary tract infection): -UA indicative of infection -urine cx: Citrobacter frenundii, Enterobacter asburiae -has been on Ceftriaxone, will switch to levaquin per sensitivity profile -Mann catheter removed -add Flomax as may have element of urinary retention; if BP allows Status: Acute Qualifiers: Hematuria presence: without hematuria Urinary tract infection type: acute cystitis Qualified Code(s): N30.00 - Acute cystitis without hematuria (3) Normocytic anemia: -acute on chronic normocytic anemia; previously had macrocytic anemia secondary to vitamin B12 and folate deficiencies -plan for EGD and colonoscopy by Dr. Sapp -AC has been on hold; had previously been on Eliquis due to UE supervificial DVT -s/p 2 units PRBCs due to acute drop in Hg; continue to closely monitor H/H -baseline Hg appears to be around 11 -on PPI Status: Chronic (4) CAD (coronary artery disease): -NSTEMI and code blue during hospitalization in 04/2019 -has been following up with cardiology -Echo (04/2019): EF=64%, no RWMA, G1DD, mild MR, trace AR -had coronary angiogram (06/2019) showing normal coronaries -on statin, BB Status: Chronic Qualifiers: Associated angina: with unstable angina Coronary Disease-Associated Artery/Lesion type: [place] artery [place] vs. transplanted heart: [place] heart Qualified Code(s): I25.110 - Atherosclerotic heart disease of [place] coronary artery with unstable angina pectoris (5) Congestive heart failure: -no acute exacerbation currently -last Echo: EF=64%, no RWMA, G1DD, mild MR, trace AR Status: Chronic Qualifiers: Heart failure chronicity: unspecified Heart failure type: unspecified Qualified Code(s): I50.9 - Heart failure, unspecified (6) DVT (deep venous thrombosis): -previously found to have R basilic vein DVT -had been on AC with Eliquis, now discontinued Status: Chronic Qualifiers: Affected thrombotic vein of extremity: other upper extremity vein Chronicity: unspecified DVT location: upper extremity Laterality: right Qualified Code(s): I82.621 - Acute embolism and thrombosis of deep veins of right upper extremity (7) Non-insulin dependent type 2 diabetes mellitus: -A1c-5.5 -Acchucheks, hypoglycemia precautions, ISS Status: Chronic (8) Hypertension: -VSS; continue to monitor Status: Chronic Qualifiers: Hypertension type: essential hypertension Qualified Code(s): I10 - Essential (primary) hypertension (9) Hypothyroidism: -Hx of thyroid cancer s/p thyroidectomy with acquired hypothyroidism -continue levothyroxine Status: Chronic Qualifiers: Hypothyroidism type: postoperative Qualified Code(s): E89.0 - Postprocedural hypothyroidism (10) COPD (chronic obstructive pulmonary disease): -follows up with Dr. Lane -no acute exacerbation, not oxygen dependent at baseline Status: Chronic Qualifiers: COPD type: unspecified COPD Qualified Code(s): J44.9 - Chronic obstructive pulmonary disease, unspecified (11) Hypocalcemia: -previously noted -PTH wnl Status: Chronic Additional A&P Information -Morbid obesity: BMI-41 kg/m2 -GEOVANNI -GERD; on PPI -CKD stage 2; baseline Cr around 1.5; likely due to diuresis. Continue to monitor renal function -high fall risk so 1:1 monitoring requested -GI ppx with PPI -DVT ppx with SCDs; no AC due to bleeding risk -Dispo: return to [facility] -Code status: FULL code Attestations Medical Necessity Statement*: Patient requires hospitalization for continued postop management including pain control, therapy evaluations, continue monitoring of hemoglobin. Time Spent in Patient Care: Greater than 35 minutes (>than 50% of time spent in counselling and/or direct pt care on unit). Coding Level of Care Code Acute Fishing Rod Mechanic for Chg Fwd Exam Comprehensive Diagnoses Fracture, subtrochanteric, right femur, closed S72.24XA Encounter type: initial encounter Fracture alignment: nondisplaced UTI (urinary tract infection) N30.00 Hematuria presence: without hematuria Urinary tract infection type: acute cystitis Normocytic anemia D64.9 CAD (coronary artery disease) I25.110 Associated angina: with unstable angina Coronary Disease-Associated Artery/Lesion type: [place] artery [place] vs. transplanted heart: [place] heart Congestive heart failure I50.9 Heart failure chronicity: unspecified Heart failure type: unspecified DVT (deep venous thrombosis) I82.621 Affected thrombotic vein of extremity: other upper extremity vein Chronicity: unspecified DVT location: upper extremity Laterality: right Non-insulin dependent type 2 diabetes mellitus E11.9 Hypertension I10 Hypertension type: essential hypertension Hypothyroidism E89.0 Hypothyroidism type: postoperative COPD (chronic obstructive pulmonary disease) J44.9 COPD type: unspecified COPD Hypocalcemia E83.51
[2019-09-05 13:57] LABS: Glucose Point of Care 176 mg/dL (70-110)
[2019-09-05] MEDS: levoFLOXacin 750 mg Tablet PO (14:32)
--- NOTE | 2019-09-05 15:49 | PC.NURSE ---
pts guillen out at 0630 this am, pt had not voided since. bladder scan showed only 59mL urine. Dr. Leroy notified, no new orders at this time.
--- NOTE | 2019-09-05 19:03 | PC.NURSE ---
Pt had guillen removed at 1830 this am, she has not voided since. Bladder scan at 1230 showed 59mL in bladder, pt did have ivf running at that time, po fluids encouraged. at 1830 bladder scan showed 139, iv fluids had been discontinued earlier in the shift. pt not wanting to drink po fluids. Pt did have small incontinent episode while in bed. Dr. Leroy notified of little urine output this shift, no new orders received at this time.
[2019-09-05] MEDS: atorvastatin 40 mg Tablet PO (20:53)
[2019-09-05 21:04] LABS: Glucose Point of Care 121 mg/dL (70-110)
--- NOTE | 2019-09-05 23:23 | PC.NURSE ---
Pain: Patient states pain is 4/5 on scale of 0-10. Would prefer to take her oral medications. Let her know they were not due for 2 more hours and she was okay with that. Refused Morphine but did educate her on medication and effects. Educated her on changing positions etc. She states she will wait for oral pain agents.
[2019-09-06] VITALS (26 sets, daily range): BP systolic 90–126; BP diastolic 50–84; PULSE 76–106; RESP 14–20; TEMP 36.4–37.1; O2SAT 92–100
[2019-09-06] MEDS: morphine 4 mg/mL SDV 1 mL 2 MG IVP (00:16)
--- NOTE | 2019-09-06 00:17 | PC.PHAR ---
Levaquin dosage is adjusted from 750mg p.o. daily to 750mg p.o. every other day due to creatinine clearance of 35.8.
[2019-09-06 02:07] LABS: Glucose Point of Care 110 mg/dL (70-110)
[2019-09-06] MEDS: HYDROcodone-acetaminophen 5-325 mg Tablet PO ×5 (02:18→20:29)
[2019-09-06] MEDS: ipratropium-albuterol 3 mL Neb INHALATION ×4 (03:03→20:39)
[2019-09-06 05:59] LABS: Basophils % 0.2 %; Eosinophils % 0.2 %; Hematocrit 22.3 % (37.0-47.0); Hemoglobin 6.9 g/dL (11.5-15.3); Lymphocytes # 0.2 10^3/uL (0.8-4.8); Lymphocytes % 3.4 %; Mean Corpuscular HGB Conc 30.9 g/dL (30.0-36.0); Mean Corpuscular Hemoglobin 29.2 pg (28.0-34.0); Mean Corpuscular Volume 94.5 fL (81-99); Mean Platelet Volume 9.8 fL (7.4-10.4); Monocytes # 0.3 10^3/uL (0.2-0.9); Monocytes % 5.9 %; Neutrophils # 3.9 10^3/uL (1.8-7.7); Neutrophils % 89.6 %; Nucleated Red Blood Cells % 0 %; Platelet Count 180 10^3/cmm (130-400); Red Blood Count 2.36 10^6/uL (4.1-5.3); Red Cell Distribution Width 17.5 % (12.1-15.1); White Blood Count 4.4 10^3/uL (4.0-10.0)
[2019-09-06 06:26] LABS: Anion Gap 15.1 (5-19); Blood Urea Nitrogen 12 mg/dL (8-23); Calcium 6.8 mg/dL (8.5-10.5); Carbon Dioxide 23 mmol/L (22-29); Chloride 102 mmol/L (98-107); Glucose 106 mg/dL (65-115); Osmolality Calculated 281 mOsm/kg (285-295); Potassium 3.1 mmol/L (3.5-5.1); Sodium 137 mmol/L (136-145)
[2019-09-06] MEDS: sertraline 50 mg Tablet PO (07:48)
[2019-09-06] MEDS: fenofibrate 48 mg Tablet PO (07:48)
[2019-09-06] MEDS: pantoprazole 40 mg SDV IVP (07:48)
[2019-09-06] MEDS: calcium carb-vit d 600mg/400unit 1 Tablet 1 EACH PO ×2 (07:48→17:33)
[2019-09-06] MEDS: levothyroxine 25 mcg Tablet PO (07:49)
[2019-09-06] MEDS: levothyroxine 150 mcg Tablet PO (07:49)
[2019-09-06] MEDS: folic acid 1 mg Tablet PO (07:49)
[2019-09-06] MEDS: tamsulosin 0.4 mg Capsule PO (07:49)
[2019-09-06] MEDS: ferrous sulfate EC 325 mg Tablet PO ×2 (07:49→17:33)
[2019-09-06] MEDS: bumetanide 1 mg Tablet 0.5 MG PO (08:07)
--- NOTE | 2019-09-06 08:32 | P.PN_ITS ---
Subjective Subjective: Interval history: Was incontinent of urine overnight per nursing staff, blood pressure stable, afebrile, no bowel movement yet. Noted mild hypokalemia with potassium of 3.1, improved creatinine to 1.2, drop in hemoglobin from 8.2->6.9 so we will need to transfuse PRBCs. She is POD # 2 s/p R ORIF. She is sitting up in a chair with physical therapy in the room, crying out in pain even with minimal movement of her right lower extremity and at rest complaints of pain from her hip to her knee area. Medications: Reviewed: Yes Medication Review Details: Active Medications Generic Name Dose Route Start Last Admin Trade Name Freq PRN Reason Stop Dose Admin Hydrocodone Bitart /Acetaminophen 1 - 2 tab 09/04/19 19:37 09/06/19 06:30 [place] 5-325 Mg PO 1 tab Q4H PRN Administration BREAKTHROUGH PAIN Albuterol/Ipratrop ium 3 ml 09/04/19 15:00 09/06/19 03:03 Duoneb INHALATION 3 ml Q6H.RESPIRATORY S CH Administration Atorvastatin Calci um 40 mg 09/04/19 21:00 09/05/19 20:53 Lipitor PO 40 mg BEDTIME KELLY Administration Budesonide 0.5 mg 09/04/19 18:00 09/05/19 20:11 Pulmicort INHALATION 0.5 mg BID KELLY Administration Calcium Carbonate 1 each 09/04/19 18:00 09/06/19 07:48 Oyster Shell 600 mg-Vit D 400unit PO 1 each BID KELLY Administration Dextrose 25 ml 09/04/19 13:48 D50w IVP ONCE PRN hypoglycemia prot ocol Protocol Dextrose 50 ml 09/04/19 13:48 D50w IVP PRN PRN hypoglycemia prot ocol Protocol Fenofibrate 48 mg 09/05/19 09:00 09/06/19 07:48 Tricor PO 48 mg DAILY KELLY Administration Ferrous Sulfate 325 mg 09/04/19 18:00 09/06/19 07:49 Ferrous Sulfate PO 325 mg BIDWM KELLY Administration Folic Acid 1 mg 09/05/19 09:00 09/06/19 07:49 Folic Acid PO 1 mg DAILY KELLY Administration Glucagon 1 mg 09/04/19 13:48 Glucagen IM ONCE PRN Adult Acute Hypog lycemia Prot. Protocol Dextrose 500 mls @ 100 mls /hr 09/04/19 13:48 D5w IV ONCE PRN Adult Acute Hypog lycemia Prot Protocol Insulin Aspart 0 unit 09/04/19 14:00 09/06/19 07:12 Novolog SUBCUT Not Given Q6H [facility] Protocol Levofloxacin 750 mg 09/07/19 14:00 Levaquin PO Q48H KELLY Protocol Levothyroxine Sodi um 150 mcg 09/04/19 09:00 09/06/19 07:49 Synthroid PO 150 mcg DAILY KELLY Administration Levothyroxine Sodi um 25 mcg 09/04/19 09:00 09/06/19 07:49 Synthroid PO 25 mcg DAILY KELLY Administration Metoprolol Tartrat e 25 mg 09/04/19 09:00 09/06/19 07:49 Lopressor PO Not Given BID [facility] Morphine Sulfate 2 mg 09/04/19 19:37 09/06/19 00:16 Morphine IVP 2 mg Q1H PRN Administration PAIN not managed by oral agent Nitroglycerin 0.4 mg 09/04/19 11:50 Nitrostat SUBLINGUAL Q5M PRN Chest Pain Ondansetron HCl 4 mg 09/04/19 19:37 Zofran IVP Q4H PRN NAUSEA AND VOMITI NG Pantoprazole Sodiu m 40 mg 09/04/19 08:00 09/06/19 07:48 Protonix IVP 40 mg BIDWM KELLY Administration Potassium Chloride 40 meq 09/06/19 08:32 Klor-Con 10 PO 09/06/19 08:33 ONCE ONE Senna/Docusate Sod ium 2 tab 09/06/19 09:00 Senna-S PO BID KELLY Sertraline HCl 50 mg 09/05/19 09:00 09/06/19 07:48 Zoloft PO 50 mg DAILY KELLY Administration Tamsulosin HCl 0.4 mg 09/06/19 09:00 09/06/19 07:49 Flomax PO 0.4 mg DAILY KELLY Administration methylprednisolone [From Solu-Medrol] Allergy (Verified 08/30/19 13:53) ALGY-Rash piperacillin [From Zosyn] Allergy (Verified 08/30/19 13:53) ALGY-Rash tazobactam [From Zosyn] Allergy (Verified 08/30/19 13:53) ALGY-Rash Vitals/I&O/Wt Last Vital Signs Temp 98.7 F 09/06/19 07:46 Pulse 105 H 09/06/19 07:46 Resp 19 H 09/06/19 07:46 BP 108/69 09/06/19 07:46 Pulse Ox 96 09/06/19 07:46 09/05/19 09/06/19 09/06/19 22:59 06:59 14:59 Intake Total 120 / 1650 440 / 2090 Output Total 0 / 0 Balance 120 / 1650 440 / 0 Physical Exam Const: COMMON NORMALS: alert GENERAL APPEARANCE: cooperative and anxious; not comfortable NUTRITIONAL APPEARANCE: obese morbidly obese ORIENTATION/CONSCIOUSNESS: Yes awake and Yes confused (repetitive in her questions) HENMT: COMMON NORMALS: normocephalic, atraumatic, hearing grossly normal bilaterally and moist oral mucous membranes HEAD & SCALP: normocephalic and atraumatic TEETH & GINGIVA: Yes edentulous Eye: COMMON NORMALS: Equal, round and reactive pupils present, EOMs intact bilaterally and conjunctivae normal CONJUNCTIVA: Yes conjunctivae normal PUPIL: Yes Equal, round and reactive pupils present Neck/C-Spine: COMMON NORMALS: full ROM GENERAL: Yes normal visual inspection and Yes trachea midline Resp: COMMON NORMALS: normal respiratory effort, No retractions, No use of accessory muscles and clear to auscultation bilaterally EFFORT & INSPECTION: Yes able to speak in complete sentences, Yes symmetric chest movement and No tachypneic AUSCULTATION: clear to auscultation bilaterally OTHER: -on 2 L NC Cardio: COMMON NORMALS: regular rate, regular rhythm, S1 normal heart sound present, S2 normal heart sound present and No murmurs present (Cardio) RATE: regular rate RHYTHM: regular rhythm HEART SOUNDS: S1 normal heart sound present and S2 normal heart sound present GI: COMMON NORMALS: Normal to inspection, nondistended, normoactive bowel sounds present, Soft to palpation and non-tender INSPECTION: Yes central obesity PALPATION: Yes Soft to palpation : BLADDER/KIDNEY EXAM: No catheter in place Extremity: COMMON NORMALS: normal to inspection, full ROM, no clubbing, cyanosis or edema and no pedal edema NARRATIVE EXTREMITY EXAM: -RLE: noted incision sites with clean/dry/intact dressings; R thigh soft to palpation, no noted hematoma Neuro: COMMON NORMALS: moves all extremities (significantly decreased ROM of RLE), no focal motor deficits and no sensory deficits noted SENSORIUM/ORIENTATION: Yes alert Psych: COMMON NORMALS: mental status grossly normal, cooperative and speech normal SPEECH: Yes normal speech MOOD & AFFECT: Yes anxious THOUGHT PROCESS: confused INSIGHT: Poor insight present (Psych) Skin: COMMON NORMALS: no rashes or lesions noted, no jaundice, no petechiae and no mottling GENERAL SKIN EXAM: no rashes or lesions noted Urinary Catheter Management^: Mann: Cath Placed During This Visit: yes, but has since been removed by the nurse Reason for Continuing Indwelling Catheter: Decision to DC Catheter Urinary Catheter Date of Insertion: 09/03/19 Urinary Catheter Time of Insertion: 16:30 Date Urinary Catheter Removed: 09/05/19 Time Urinary Catheter Discontinued: 06:30 Data : 09/06/19 04:40 09/06/19 04:40 Micro: Microbiology 09/04/19 05:22 Blood Culture - Preliminary Blood NEGATIVE TO DATE 09/04/19 22:09 Blood Culture - Preliminary Blood NEGATIVE TO DATE 09/03/19 16:17 Urine Culture - Final Urine Catheterized Enterobacter asburiae Citrobacter Freundii Complex A&P Assessment and plan (1) Fracture, subtrochanteric, right femur, closed: -Noted to have comminuted right proximal femur fracture on imaging -POD # 2, s/p ORIF by Dr. Richard -Ortho consult appreciated -EBL-200 mL; has underlying anemia and has already required 2 units PRBCs so continue to monitor H/H closely -Mann catheter removed (09/04); has been incontinent -VSS; continue to monitor -PT/OT evaluations appreciated -fall precautions -completed Clindamycin for periop abx ppx -supplemental oxygen as needed, IS -off IVF due to risk of fluid overload; encourage oral hydration -no BM yet, add bowel regimen Status: Acute Qualifiers: Encounter type: initial encounter Fracture alignment: nondisplaced Qualified Code(s): S72.24XA - Nondisplaced subtrochanteric fracture of right femur, initial encounter for closed fracture (2) Normocytic anemia: -acute blood loss on chronic normocytic anemia; previously had macrocytic anemia secondary to vitamin B12 and folate deficiencies -plan for EGD and colonoscopy by Dr. Sapp; per my discussion with him, would like to wait at least 6-8 weeks post-op to allow for appropriate recovery -AC has been on hold; had previously been on Eliquis due to UE superficial DVT -s/p 2 units PRBCs due to acute drop in Hg (09/03); continue to closely monitor H/H. With noted drop from 8.2->6.9 today, will transfuse an additional 2 units PRBCs with diuresis in between to prevent fluid overload -baseline Hg appears to be around 11 -on PPI Status: Chronic (3) UTI (urinary tract infection): -UA indicative of infection -urine cx: Citrobacter frenundii, Enterobacter asburiae -off Ceftriaxone, on levaquin per sensitivity profile (renally dosed) -Mann catheter removed; incontinent -on Flomax as may have element of urinary retention Status: Acute Qualifiers: Urinary tract infection type: acute cystitis Hematuria presence: without hematuria Qualified Code(s): N30.00 - Acute cystitis without hematuria (4) CAD (coronary artery disease): -NSTEMI and code blue during hospitalization in 04/2019 -has been following up with cardiology -Echo (04/2019): EF=64%, no RWMA, G1DD, mild MR, trace AR -had coronary angiogram (06/2019) showing normal coronaries -on statin, BB Status: Chronic Qualifiers: Coronary Disease-Associated Artery/Lesion type: [place] artery [place] vs. transplanted heart: [place] heart Associated angina: with unstable angina Qualified Code(s): I25.110 - Atherosclerotic heart disease of [place] coronary artery with unstable angina pectoris (5) Congestive heart failure: -no acute exacerbation currently -last Echo: EF=64%, no RWMA, G1DD, mild MR, trace AR Status: Chronic Qualifiers: Heart failure chronicity: unspecified Heart failure type: unspecified Qualified Code(s): I50.9 - Heart failure, unspecified (6) DVT (deep venous thrombosis): -previously found to have R basilic vein DVT -had been on AC with Eliquis, now discontinued Status: Chronic Qualifiers: DVT location: upper extremity Affected thrombotic vein of extremity: other upper extremity vein Chronicity: unspecified Laterality: right Qualified Code(s): I82.621 - Acute embolism and thrombosis of deep veins of right upper extremity (7) Non-insulin dependent type 2 diabetes mellitus: -A1c-5.5 -Acchucheks, hypoglycemia precautions, ISS Status: Chronic (8) Hypertension: -VSS; continue to monitor Status: Chronic Qualifiers: Hypertension type: essential hypertension Qualified Code(s): I10 - Essential (primary) hypertension (9) Hypothyroidism: -Hx of thyroid cancer s/p thyroidectomy with acquired hypothyroidism -continue levothyroxine Status: Chronic Qualifiers: Hypothyroidism type: postoperative Qualified Code(s): E89.0 - Postprocedural hypothyroidism (10) COPD (chronic obstructive pulmonary disease): -follows up with Dr. Lane -no acute exacerbation, not oxygen dependent at baseline Status: Chronic Qualifiers: COPD type: unspecified COPD Qualified Code(s): J44.9 - Chronic obstr uctive pulmonary disease, unspecified (11) Hypocalcemia: -previously noted; corrected Ca-7.9 -PTH wnl Status: Chronic Additional A&P Information -Morbid obesity: BMI-41 kg/m2 -GEOVANNI -GERD; on PPI -CKD stage 2; baseline Cr around 1.5; likely due to diuresis. Continue to monitor renal function -high fall risk so may require 1:1 monitoring particularly as she seems to have limited insight and has difficulty comprehending current medical issues; requiring frequent redirection, encouragement and cueing. -GI ppx with PPI -DVT ppx with SCDs; no AC due to bleeding risk -Dispo: return to [facility] -Code status: FULL code Attestations Medical Necessity Statement*: Patient requires hospitalization for continued postop care including management of acute blood loss anemia requiring trans fusion of additional blood products, monitoring of hemodynamic status, pain control, continued therapy evaluations. Time Spent in Patient Care: 16 - 35 minutes (>than 50% of time spent in counselling and/or direct pt care on unit) . Coding Level of Care Code Acute Modeling Agent for Chg Fwd Diagnoses Fracture, subtrochanteric, right femur, closed S72.24XA Encounter type: initial encounter Fracture alignment: nondisplaced Normocytic anemia D64.9 UTI (urinary tract infection) N30.00 Urinary tract infection type: acute cystitis Hematuria presence: without hematuria CAD (coronary artery disease) I25.110 Coronary Disease-Associated Artery/Lesion type: [place] artery [place] vs. transplanted heart: [place] heart Associated angina: with unstable angina Congestive heart failure I50.9 Heart failure chronicity: unspecified Heart failure type: unspecified DVT (deep venous thrombosis) I82.621 DVT location: upper extremity Affected thrombotic vein of extremity: other upper extremity vein Chronicity: unspecified Laterality: right Non-insulin dependent type 2 diabetes mellitus E11.9 Hypertension I10 Hypertension type: essential hypertension Hypothyroidism E89.0 Hypothyroidism type: postoperative COPD (chronic obstructive pulmonary disease) J44.9 COPD type: unspecified COPD Hypocalcemia E83.51
[2019-09-06] MEDS: sodium chloride 0.9% (100 ml) 100 ML 10 ML ×2 (09:05→14:28)
[2019-09-06] MEDS: polyethylene glycol 3350 Pkt 17 gm PO (09:09)
[2019-09-06] MEDS: sennosides-docusate Tablet 2 TAB PO ×2 (09:09→17:32)
[2019-09-06] MEDS: metoprolol tartrate 25 mg Tablet PO ×2 (09:18→20:28)
[2019-09-06] MEDS: budesonide 0.5 mg/2 mL Neb INHALATION ×2 (09:23→20:39)
[2019-09-06 11:02] LABS: Glucose Point of Care 168 mg/dL (70-110)
--- NOTE | 2019-09-06 11:11 | PC.OT ---
HOLDING OT EVALUATION HGB IS 6.9; CONTRAINDICATED FOR THERAPY PARTICIPATION AT THIS TIME.
[2019-09-06 16:14] LABS: Glucose Point of Care 224 mg/dL (70-110)
[2019-09-06] MEDS: pantoprazole DR 40 mg Tablet PO (17:33)
--- NOTE | 2019-09-06 18:06 | NUR.SHIFT ---
SHIFT SUMMARY PATIENT HAS BEEN VERY CONFUSED TODAY. SHE SAT IN THE CHAIR FROM AROUND [id number]. PATIENT COMPLAINS OF RIGHT LEG PAIN. THIS NURSE CONTINUOUSLY REMINDS PATIENT OF HER HIP SURGERY, BUT PATIENT FORGETS. PATIENT IS NOW A 1:1 SITTER. THIS NURSE ADMINISTERED 2 UNITS OF PRBC'S. PATIENT HAS BEEN INCONTINENT. BP IS ON THE SOFTER SIDE. SURGICAL INCISION DRESSING IS C/D/I.
--- NOTE | 2019-09-06 18:17 | PM.PN ---
Subjective Subjective: Interval history: Patient still confused. No complaints of pain. Vitals/I&O/Wt Last Vital Signs Temp 98.0 F 09/06/19 17:54 Pulse 83 09/06/19 17:54 Resp 16 09/06/19 17:54 BP 98/60 09/06/19 17:54 Pulse Ox 94 09/06/19 17:54 09/06/19 09/06/19 09/06/19 06:59 14:59 22:59 Intake Total 440 / 2090 810 / 810 470 / 1280 Balance 440 / 2090 810 / 810 470 / 1280 Physical Exam Narrative: EXAM NARRATIVE: Right hip dressing clean and dry. Expected swelling right thigh Urinary Catheter Management^: Mann: Cath Placed During This Visit: yes, but has since been removed by the nurse Reason for Continuing Indwelling Catheter: Decision to DC Catheter Urinary Catheter Date of Insertion: 09/03/19 Urinary Catheter Time of Insertion: 16:30 Date Urinary Catheter Removed: 09/05/19 Time Urinary Catheter Discontinued: 06:30 Data : 09/06/19 04:40 09/06/19 04:40 Micro: Microbiology 09/04/19 05:22 Blood Culture - Preliminary Blood NEGATIVE TO DATE 09/04/19 22:09 Blood Culture - Preliminary Blood NEGATIVE TO DATE A&P Assessment and plan (1) Postoperative state: Patient to transfer bed to chair only. Okay for transfer to a custodial when cleared with medicine. Status: Acute Attestations Medical Necessity Statement*: As per medicine Coding Level of Care Code Acute Product Development Assistant for Idania Allison Diagnoses Postoperative state Z98.890
[2019-09-06 18:53] LABS: Hematocrit 29.7 % (37.0-47.0); Hemoglobin 9.2 g/dL (11.5-15.3)
[2019-09-06] MEDS: atorvastatin 40 mg Tablet PO (20:28)
[2019-09-06 22:27] LABS: Glucose Point of Care 85 mg/dL (70-110)
[2019-09-07] VITALS (10 sets, daily range): BP systolic 106–119; BP diastolic 56–68; PULSE 64–99; RESP 18–20; TEMP 36.7–37; O2SAT 91–97
[2019-09-07] MEDS: ipratropium-albuterol 3 mL Neb INHALATION ×2 (02:49→08:03)
[2019-09-07] MEDS: HYDROcodone-acetaminophen 5-325 mg Tablet PO ×4 (02:53→20:19)
--- NOTE | 2019-09-07 05:48 | PC.NURSE ---
SHIFT SUMMARY Has not slept alot this shift. Has been cooperative and pleasant but quite confused. Thinks she is at the Custodial most of the time and forgets she fell and broke her hip and required surgery. Asks same questions and repeats things often. Has received po Hydrocodone X2 for pain. Right lateral hip dressings clean & dry. Has edema and bruising to hip. Ice pack in place. Is incont of urine and changed as needed. Says she does not know when she urinates. This nurse has been 1:1 with pt all shift
[2019-09-07 05:55] LABS: Hematocrit 30.1 % (37.0-47.0); Hemoglobin 9.4 g/dL (11.5-15.3)
[2019-09-07 06:10] LABS: Anion Gap 15.7 (5-19); Blood Urea Nitrogen 13 mg/dL (8-23); Calcium 7.4 mg/dL (8.5-10.5); Carbon Dioxide 22 mmol/L (22-29); Chloride 103 mmol/L (98-107); Glucose 89 mg/dL (65-115); Osmolality Calculated 280 mOsm/kg (285-295); Potassium 3.7 mmol/L (3.5-5.1); Sodium 137 mmol/L (136-145)
[2019-09-07 06:51] LABS: Glucose Point of Care 112 mg/dL (70-110)
[2019-09-07] MEDS: tamsulosin 0.4 mg Capsule PO (08:03)
[2019-09-07] MEDS: folic acid 1 mg Tablet PO (08:03)
[2019-09-07] MEDS: ferrous sulfate EC 325 mg Tablet PO ×2 (08:03→18:50)
[2019-09-07] MEDS: budesonide 0.5 mg/2 mL Neb INHALATION (08:03)
[2019-09-07] MEDS: sertraline 50 mg Tablet PO (08:03)
[2019-09-07] MEDS: fenofibrate 48 mg Tablet PO (08:03)
[2019-09-07] MEDS: polyethylene glycol 3350 Pkt 17 gm PO (08:03)
[2019-09-07] MEDS: calcium carb-vit d 600mg/400unit 1 Tablet 1 EACH PO ×2 (08:04→18:50)
[2019-09-07] MEDS: metoprolol tartrate 25 mg Tablet PO ×2 (08:04→18:50)
[2019-09-07] MEDS: levothyroxine 150 mcg Tablet PO (08:04)
[2019-09-07] MEDS: levothyroxine 25 mcg Tablet PO (08:04)
[2019-09-07] MEDS: pantoprazole DR 40 mg Tablet PO ×2 (08:04→18:50)
[2019-09-07] MEDS: sennosides-docusate Tablet 2 TAB PO ×2 (08:05→18:50)
[2019-09-07 10:48] LABS: Glucose Point of Care 102 mg/dL (70-110)
--- NOTE | 2019-09-07 12:40 | PM.PN ---
Subjective Subjective: Interval history: Overnight, required 1:1 monitoring, remains confused, forgetful and requires constant redirection. Improved Hg and hemodynamic status, stable renal function. Incontinent. Poor participation with therapy. She is POD # 3 s/p R ORIF. Medications: Reviewed: Yes Medication Review Details: Active Medications Generic Name Dose Route Start Last Admin Trade Name Freq PRN Reason Stop Dose Admin Hydrocodone Bitart /Acetaminophen 1 - 2 tab 09/04/19 19:37 09/07/19 08:04 Vadito 5-325 Mg PO 1 tab Q4H PRN Administration BREAKTHROUGH PAIN Albuterol/Ipratrop ium 3 ml 09/04/19 15:00 09/07/19 08:03 Duoneb INHALATION 3 ml Q6H.RESPIRATORY S CH Administration Atorvastatin Calci um 40 mg 09/04/19 21:00 09/06/19 20:28 Lipitor PO 40 mg BEDTIME KELLY Administration Budesonide 0.5 mg 09/04/19 18:00 09/07/19 08:03 Pulmicort INHALATION 0.5 mg BID KELLY Administration Calcium Carbonate 1 each 09/04/19 18:00 09/07/19 08:04 Oyster Shell 600 mg-Vit D 400unit PO 1 each BID KELLY Administration Dextrose 25 ml 09/04/19 13:48 D50w IVP ONCE PRN hypoglycemia prot ocol Protocol Dextrose 50 ml 09/04/19 13:48 D50w IVP PRN PRN hypoglycemia prot ocol Protocol Fenofibrate 48 mg 09/05/19 09:00 09/07/19 08:03 Tricor PO 48 mg DAILY KELLY Administration Ferrous Sulfate 325 mg 09/04/19 18:00 09/07/19 08:03 Ferrous Sulfate PO 325 mg BIDWM KELLY Administration Folic Acid 1 mg 09/05/19 09:00 09/07/19 08:03 Folic Acid PO 1 mg DAILY KELLY Administration Glucagon 1 mg 09/04/19 13:48 Glucagen IM ONCE PRN Adult Acute Hypog lycemia Prot. Protocol Dextrose 500 mls @ 100 mls /hr 09/04/19 13:48 D5w IV ONCE PRN Adult Acute Hypog lycemia Prot Protocol Insulin Aspart 0 unit 09/06/19 18:00 09/07/19 11:30 Novolog SUBCUT Not Given WM&BEDTIME KELLY Protocol Levofloxacin 750 mg 09/07/19 14:00 Levaquin PO Q48H [facility] Protocol Levothyroxine Sodi um 150 mcg 09/04/19 09:00 09/07/19 08:04 Synthroid PO 150 mcg DAILY KELLY Administration Levothyroxine Sodi um 25 mcg 09/04/19 09:00 09/07/19 08:04 Synthroid PO 25 mcg DAILY KELLY Administration Metoprolol Tartrat e 25 mg 09/04/19 09:00 09/07/19 08:04 Lopressor PO 25 mg BID KELLY Administration Morphine Sulfate 2 mg 09/04/19 19:37 09/06/19 00:16 Morphine IVP 2 mg Q1H PRN Administration PAIN not managed by oral agent Nitroglycerin 0.4 mg 09/04/19 11:50 Nitrostat SUBLINGUAL Q5M PRN Chest Pain Ondansetron HCl 4 mg 09/04/19 19:37 Zofran IVP Q4H PRN NAUSEA AND VOMITI NG Pantoprazole Sodiu m 40 mg 09/06/19 18:00 09/07/19 08:04 Protonix PO 40 mg BIDWM KELLY Administration Polyethylene Glyco l 17 gm 09/06/19 09:00 09/07/19 08:03 Miralax PO 17 gm DAILY KELLY Administration Senna/Docusate Sod ium 2 tab 09/06/19 09:00 09/07/19 08:05 Senna-S PO 2 tab BID KELLY Administration Sertraline HCl 50 mg 09/05/19 09:00 09/07/19 08:03 Zoloft PO 50 mg DAILY KELLY Administration Tamsulosin HCl 0.4 mg 09/06/19 09:00 09/07/19 08:03 Flomax PO 0.4 mg DAILY KELLY Administration methylprednisolone [From Solu-Medrol] Allergy (Verified 08/30/19 13:53) ALGY-Rash piperacillin [From Zosyn] Allergy (Verified 08/30/19 13:53) ALGY-Rash tazobactam [From Zosyn] Allergy (Verified 08/30/19 13:53) ALGY-Rash Vitals/I&O/Wt Last Vital Signs Temp 98.1 F 09/07/19 11:20 Pulse 78 09/07/19 11:20 Resp 18 09/07/19 11:20 BP 107/68 09/07/19 11:20 Pulse Ox 94 09/07/19 11:20 09/06/19 09/07/19 09/07/19 22:59 06:59 14:59 Intake Total 570 / 1380 200 / 1580 120 / 120 Balance 570 / 1380 200 / 1580 120 / 120 Physical Exam Const: COMMON NORMALS: alert GENERAL APPEARANCE: cooperative, comfortable and anxious NUTRITIONAL APPEARANCE: obese morbidly obese ORIENTATION/CONSCIOUSNESS: Yes awake and Yes confused (repetitive in her questions) OTHER: -sitting in chair by bedside HENMT: COMMON NORMALS: normocephalic, atraumatic, hearing grossly normal bilaterally and moist oral mucous membranes HEAD & SCALP: normocephalic and atraumatic TEETH & GINGIVA: Yes edentulous Eye: COMMON NORMALS: Equal, round and reactive pupils present, EOMs intact bilaterally and conjunctivae normal CONJUNCTIVA: Yes conjunctivae normal PUPIL: Yes Equal, round and reactive pupils present Neck/C-Spine: COMMON NORMALS: full ROM GENERAL: Yes normal visual inspection and Yes trachea midline Resp: COMMON NORMALS: normal respiratory effort, No retractions, No use of accessory muscles and clear to auscultation bilaterally EFFORT & INSPECTION: Yes able to speak in complete sentences, Yes symmetric chest movement and No tachypneic AUSCULTATION: clear to auscultation bilaterally OTHER: -on RA Cardio: COMMON NORMALS: regular rate, regular rhythm, S1 normal heart sound present, S2 normal heart sound present and No murmurs present (Cardio) RATE: regular rate RHYTHM: regular rhythm HEART SOUNDS: S1 normal heart sound present and S2 normal heart sound present GI: COMMON NORMALS: Normal to inspection, nondistended, normoactive bowel sounds present, Soft to palpation and non-tender INSPECTION: Yes central obesity PALPATION: Yes Soft to palpation : BLADDER/KIDNEY EXAM: No catheter in place Extremity: COMMON NORMALS: normal to inspection, full ROM, no clubbing, cyanosis or edema and no pedal edema NARRATIVE EXTREMITY EXAM: -RLE: noted incision sites with clean/dry/intact dressings; R thigh soft to palpation though edematous, no noted hematoma but has residual brusing around upper lateral thigh Neuro: COMMON NORMALS: moves all extremities (significantly decreased ROM of RLE), no focal motor deficits and no sensory deficits noted SENSORIUM/ORIENTATION: Yes alert Psych: COMMON NORMALS: cooperative and speech normal SPEECH: Yes normal speech MOOD & AFFECT: Yes anxious THOUGHT PROCESS: confused MEMORY/COGNITION: Yes memory grossly impaired and Yes cognition grossly impaired INSIGHT: Poor insight present (Psych) JUDGEMENT: Poor judgement present (Psych) Skin: COMMON NORMALS: no rashes or lesions noted, no jaundice, no petechiae and no mottling GENERAL SKIN EXAM: no rashes or lesions noted Urinary Catheter Management^: Mann: Cath Placed During This Visit: yes, but has since been removed by the nurse Reason for Continuing Indwelling Catheter: Decision to DC Catheter Urinary Catheter Date of Insertion: 09/03/19 Urinary Catheter Time of Insertion: 16:30 Date Urinary Catheter Removed: 09/05/19 Time Urinary Catheter Discontinued: 06:30 Data : 09/07/19 05:06 09/07/19 05:06 A&P Assessment and plan (1) Fracture, subtrochanteric, right femur, closed: -Noted to have comminuted right proximal femur fracture on imaging -POD # 3, s/p ORIF by Dr. Richard -Ortho consult appreciated -EBL-200 mL; has underlying anemia and has already required total of 4 units PRBCs so continue to monitor H/H closely -Mann catheter removed (09/04); has been incontinent -VSS; continue to monitor -PT/OT evaluations appreciated; has had very limited participation with therapy -fall precautions -completed Clindamycin for periop abx ppx -supplemental oxygen as needed, IS -off IVF due to risk of fluid overload; encourage oral hydration -no BM yet, on bowel regimen Status: Acute Qualifiers: Encounter type: initial encounter Fracture alignment: nondisplaced Qualified Code(s): S72.24XA - Nondisplaced subtrochanteric fracture of right femur, initial encounter for closed fracture (2) Normocytic anemia: -acute blood loss on chronic normocytic anemia; previously had macrocytic anemia secondary to vitamin B12 and folate deficiencies -plan for EGD and colonoscopy by Dr. Sapp; per my discussion with him, would like to wait at least 6-8 weeks post-op to allow for appropriate recovery -AC has been on hold; had previously been on Eliquis due to UE superficial DVT -s/p 4 units PRBCs due to acute drop in Hg (09/03 & 09/05); continue to closely monitor H/H. Hg increased to 9.4 today -baseline Hg appears to be around 11 -on PPI Status: Chronic (3) UTI (urinary tract infection): -UA indicative of infection -urine cx: Citrobacter frenundii, Enterobacter asburiae -off Ceftriaxone, on levaquin per sensitivity profile (renally dosed) -Mann catheter removed; incontinent -on Flomax as may have element of urinary retention Status: Acute Qualifiers: Urinary tract infection type: acute cystitis Hematuria presence: without hematuria Qualified Code(s): N30.00 - Acute cystitis without hematuria (4) CAD (coronary artery disease): -NSTEMI and code blue during hospitalization in 04/2019 -has been following up with cardiology -Echo (04/2019): EF=64%, no RWMA, G1DD, mild MR, trace AR -had coronary angiogram (06/2019) showing normal coronaries -on statin, BB Status: Chronic Qualifiers: Coronary Disease-Associated Artery/Lesion type: [place] artery [place] vs. transplanted heart: [place] heart Associated angina: with unstable angina Qualified Code(s): I25.110 - Atherosclerotic heart disease of [place] coronary artery with unstable angina pectoris (5) Congestive heart failure: -no acute exacerbation currently -last Echo: EF=64%, no RWMA, G1DD, mild MR, trace AR Status: Chronic Qualifiers: Heart failure chronicity: unspecified Heart failure type: unspecified Qualified Code(s): I50.9 - Heart failure, unspecified (6) DVT (deep venous thrombosis): -previously found to have R basilic vein DVT -had been on AC with Eliquis, now discontinued Status: Chronic Qualifiers: DVT location: upper extremity Affected thrombotic vein of extremity: other upper extremity vein Chronicity: unspecified Laterality: right Qualified Code(s): I82.621 - Acute embolism and thrombosis of deep veins of right upper extremity (7) Non-insulin dependent type 2 diabetes mellitus: -A1c-5.5 -Acchucheks, hypoglycemia precautions, ISS Status: Chronic (8) Hypertension: -VSS; continue to monitor Status: Chronic Qualifiers: Hypertension type: essential hypertension Qualified Code(s): I10 - Essential (primary) hypertension (9) Hypothyroidism: -Hx of thyroid cancer s/p thyroidectomy with acquired hypothyroidism -continue levothyroxine Status: Chronic Qualifiers: Hypothyroidism type: postoperative Qualified Code(s): E89.0 - Postprocedural hypothyroidism (10) COPD (chronic obstructive pulmonary disease): -follows up with Dr. Lane -no acute exacerbation, not oxygen dependent at baseline Status: Chronic Qualifiers: COPD type: unspecified COPD Qualified Code(s): J44.9 - Chronic obstructive pulmonary disease, unspecified (11) Hypocalcemia: -previously noted; corrected Ca-7.9 -PTH wnl Status: Chronic Additional A&P Information -Morbid obesity: BMI-41 kg/m2 -GEOVANNI -GERD; on PPI -CKD stage 2; baseline Cr around 1.5; likely due to diuresis. Continue to monitor renal function -with consistent confusion, forgetfulness, lack of insight, poor judgement, has at least moderate degree of dementia. Suspect that this will be her new baseline -high fall risk so may require 1:1 monitoring particularly as she seems to have limited insight and has difficulty comprehending current medical issues; requiring frequent redirection, encouragement and cueing. -GI ppx with PPI -DVT ppx with SCDs; no AC due to bleeding risk -Dispo: return to [facility] -Code status: FULL code Attestations Medical Necessity Statement*: Patient requires hospitalization for continued post-op care pending appropriate disposition. Time Spent in Patient Care: 16 - 35 minutes (>than 50% of time spent in counselling and/or direct pt care on unit). 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 transplanted heart: [place] heart Associated angina: with unstable angina Congestive heart failure I50.9 Heart failure chronicity: unspecified Heart failure type: unspecified DVT (deep venous thrombosis) I82.621 DVT location: upper extremity Affected thrombotic vein of extremity: other upper extremity vein Chronicity: unspecified Laterality: right Non-insulin dependent type 2 diabetes mellitus E11.9 Hypertension I10 Hypertension type: essential hypertension Hypothyroidism E89.0 Hypothyroidism type: postoperative COPD (chronic obstructive pulmonary disease) J44.9 COPD type: unspecified COPD Hypocalcemia E83.51
[2019-09-07] MEDS: levoFLOXacin 750 mg Tablet PO (13:20)
[2019-09-07] MEDS: nystatin powder 15 gm Btl 1 APPLIC TOPICAL (13:21)
--- NOTE | 2019-09-07 15:42 | PM.PN ---
Subjective Subjective: Interval history: Complains of right hip pain. Still confused Vitals/I&O/Wt Last Vital Signs Temp 98.1 F 09/07/19 11:20 Pulse 78 09/07/19 11:20 Resp 18 09/07/19 11:20 BP 107/68 09/07/19 11:20 Pulse Ox 94 09/07/19 11:20 09/07/19 09/07/19 09/07/19 06:59 14:59 22:59 Intake Total 200 / 1580 480 / 480 Balance 200 / 1580 480 / 480 Physical Exam Narrative: EXAM NARRATIVE: Right hip incisions clean and dry. Swelling right thigh Urinary Catheter Management^: Mann: Cath Placed During This Visit: yes, but has since been removed by the nurse Reason for Continuing Indwelling Catheter: Decision to DC Catheter Urinary Catheter Date of Insertion: 09/03/19 Urinary Catheter Time of Insertion: 16:30 Date Urinary Catheter Removed: 09/05/19 Time Urinary Catheter Discontinued: 06:30 Data : 09/07/19 05:06 09/07/19 05:06 A&P Assessment and plan (1) Postoperative state: Status: Acute (2) Fracture, subtrochanteric, right femur, closed: Continue to mobilize with therapy. [facility] Status: Acute Qualifiers: Encounter type: initial encounter Fracture alignment: nondisplaced Qualified Code(s): S72.24XA - Nondisplaced subtrochanteric fracture of right femur, initial encounter for closed fracture Attestations Medical Necessity Statement*: Per medicine Coding Level of Care Code [facility] Diagnoses Postoperative state Z98.890 Fracture, subtrochanteric, right femur, closed S72.24XA Encounter type: initial encounter Fracture alignment: nondisplaced
[2019-09-07 16:35] LABS: Glucose Point of Care 111 mg/dL (70-110)
--- NOTE | 2019-09-07 19:16 | PC.NURSE ---
Meds administered for nurse.
[2019-09-07 21:09] LABS: Glucose Point of Care 115 mg/dL (70-110)
[2019-09-07] MEDS: atorvastatin 40 mg Tablet PO (21:56)
[2019-09-08] VITALS (11 sets, daily range): BP systolic 104–113; BP diastolic 44–72; PULSE 72–90; RESP 16–19; TEMP 36.4–36.9; O2SAT 92–99
[2019-09-08] MEDS: ipratropium-albuterol 3 mL Neb INHALATION ×3 (02:47→15:03)
[2019-09-08] MEDS: HYDROcodone-acetaminophen 5-325 mg Tablet PO ×3 (02:49→12:06)
[2019-09-08 06:32] LABS: Glucose Point of Care 96 mg/dL (70-110)
[2019-09-08] MEDS: pantoprazole DR 40 mg Tablet PO (07:42)
[2019-09-08] MEDS: ferrous sulfate EC 325 mg Tablet PO (07:42)
--- NOTE | 2019-09-08 08:11 | P.PN_ITS ---
Subjective Subjective: Interval history: Hemodynamically stable, afebrile, incontinent, no BM yet, POD # 4 s/p R ORIF. Continues to require 1:1 monitoring due to disorientation and confusion. Sitting in chair by bedside, seems more comfortable today. Medications: Reviewed: Yes Medication Review Details: Active Medications Generic Name Dose Route Start Last Admin Trade Name Freq PRN Reason Stop Dose Admin Hydrocodone Bitart /Acetaminophen 1 - 2 tab 09/04/19 19:37 09/08/19 07:42 Frost 5-325 Mg PO 2 tab Q4H PRN Administration BREAKTHROUGH PAIN Albuterol/Ipratrop ium 3 ml 09/04/19 15:00 09/08/19 02:47 Duoneb INHALATION 3 ml Q6H.RESPIRATORY S CH Administration Atorvastatin Calci um 40 mg 09/04/19 21:00 09/07/19 21:56 Lipitor PO 40 mg BEDTIME KELLY Administration Budesonide 0.5 mg 09/04/19 18:00 09/07/19 20:05 Pulmicort INHALATION Not Given BID KELLY Calcium Carbonate 1 each 09/04/19 18:00 09/07/19 18:50 Oyster Shell 600 mg-Vit D 400unit PO 1 each BID KELLY Administration Dextrose 25 ml 09/04/19 13:48 D50w IVP ONCE PRN hypoglycemia prot ocol Protocol Dextrose 50 ml 09/04/19 13:48 D50w IVP PRN PRN hypoglycemia prot ocol Protocol Fenofibrate 48 mg 09/05/19 09:00 09/07/19 08:03 Tricor PO 48 mg DAILY KELLY Administration Ferrous Sulfate 325 mg 09/04/19 18:00 09/08/19 07:42 Ferrous Sulfate PO 325 mg BIDWM KELLY Administration Folic Acid 1 mg 09/05/19 09:00 09/07/19 08:03 Folic Acid PO 1 mg DAILY KELLY Administration Glucagon 1 mg 09/04/19 13:48 Glucagen IM ONCE PRN Adult Acute Hypog lycemia Prot. Protocol Dextrose 500 mls @ 100 mls /hr 09/04/19 13:48 D5w IV ONCE PRN Adult Acute Hypog lycemia Prot Protocol Insulin Aspart 0 unit 09/06/19 18:00 09/08/19 08:08 Novolog SUBCUT Not Given WM&BEDTIME KELLY Protocol Levofloxacin 750 mg 09/07/19 14:00 09/07/19 13:20 Levaquin PO 750 mg Q48H KELLY Administration Protocol Levothyroxine Sodi um 150 mcg 09/04/19 09:00 09/07/19 08:04 Synthroid PO 150 mcg DAILY KELLY Administration Levothyroxine Sodi um 25 mcg 09/04/19 09:00 09/07/19 08:04 Synthroid PO 25 mcg DAILY KELLY Administration Metoprolol Tartrat e 25 mg 09/04/19 09:00 09/07/19 18:50 Lopressor PO 25 mg BID KELLY Administration Morphine Sulfate 2 mg 09/04/19 19:37 09/06/19 00:16 Morphine IVP 2 mg Q1H PRN Administration PAIN not managed by oral agent Nitroglycerin 0.4 mg 09/04/19 11:50 Nitrostat SUBLINGUAL Q5M PRN Chest Pain Nystatin 1 applic 09/07/19 12:45 09/07/19 21:58 Nystatin Powder TOPICAL Not Given BID [facility] Ondansetron HCl 4 mg 09/04/19 19:37 Zofran IVP Q4H PRN NAUSEA AND VOMITI NG Pantoprazole Sodiu m 40 mg 09/06/19 18:00 09/08/19 07:42 Protonix PO 40 mg BIDWM KELLY Administration Polyethylene Glyco l 17 gm 09/06/19 09:00 09/07/19 08:03 Miralax PO 17 gm DAILY KELLY Administration Senna/Docusate Sod ium 2 tab 09/06/19 09:00 09/07/19 18:50 Senna-S PO 2 tab BID KELLY Administration Sertraline HCl 50 mg 09/05/19 09:00 09/07/19 08:03 Zoloft PO 50 mg DAILY KELLY Administration Tamsulosin HCl 0.4 mg 09/06/19 09:00 09/07/19 08:03 Flomax PO 0.4 mg DAILY KELLY Administration methylprednisolone [From Solu-Medrol] Allergy (Verified 08/30/19 13:53) ALGY-Rash piperacillin [From Zosyn] Allergy (Verified 08/30/19 13:53) ALGY-Rash tazobactam [From Zosyn] Allergy (Verified 08/30/19 13:53) ALGY-Rash Vitals/I&O/Wt Last Vital Signs Temp 98.5 F 09/08/19 07:15 Pulse 85 09/08/19 07:15 Resp 19 H 09/08/19 07:15 BP 106/60 09/08/19 07:15 Pulse Ox 98 09/08/19 07:15 09/07/19 09/08/19 09/08/19 22:59 06:59 14:59 Intake Total 380 / 860 Balance 380 / 860 Physical Exam Const: COMMON NORMALS: alert GENERAL APPEARANCE: cooperative, comfortable and anxious NUTRITIONAL APPEARANCE: obese morbidly obese ORIENTATION/CONSCIOUSNESS: Yes awake and Yes confused (repetitive in her questions) OTHER: -sitting in chair by bedside HENMT: COMMON NORMALS: normocephalic, atraumatic, hearing grossly normal bilaterally and moist oral mucous membranes HEAD & SCALP: normocephalic and atraumatic TEETH & GINGIVA: Yes edentulous Eye: COMMON NORMALS: Equal, round and reactive pupils present, EOMs intact bilaterally and conjunctivae normal CONJUNCTIVA: Yes conjunctivae normal PUPIL: Yes Equal, round and reactive pupils present Neck/C-Spine: COMMON NORMALS: full ROM GENERAL: Yes normal visual inspection and Yes trachea midline Resp: COMMON NORMALS: normal respiratory effort, No retractions, No use of accessory muscles and clear to auscultation bilaterally EFFORT & INSPECTION: Yes able to speak in complete sentences, Yes symmetric chest movement and No tachypneic AUSCULTATION: clear to auscultation bilaterally OTHER: -on RA Cardio: COMMON NORMALS: regular rate, regular rhythm, S1 normal heart sound present, S2 normal heart sound present and No murmurs present (Cardio) RATE: regular rate RHYTHM: regular rhythm HEART SOUNDS: S1 normal heart sound present and S2 normal heart sound present GI: COMMON NORMALS: Normal to inspection, nondistended, normoactive bowel sounds present, Soft to palpation and non-tender INSPECTION: Yes central obesity PALPATION: Yes Soft to palpation : BLADDER/KIDNEY EXAM: No catheter in place Extremity: COMMON NORMALS: normal to inspection, full ROM, no clubbing, cyanosis or edema and no pedal edema NARRATIVE EXTREMITY EXAM: -RLE: noted incision sites with clean/dry/intact dressings; R thigh soft to palpation though edematous, no noted hematoma but has residual brusing around upper lateral thigh Neuro: COMMON NORMALS: moves all extremities (significantly decreased ROM of RLE), no focal motor deficits and no sensory deficits noted SENSORIUM/ORIENTATION: Yes alert Psych: COMMON NORMALS: cooperative and speech normal SPEECH: Yes normal speech MOOD & AFFECT: Yes anxious THOUGHT PROCESS: confused MEMORY/COGNITION: Yes memory grossly impaired and Yes cognition grossly impaired INSIGHT: Poor insight present (Psych) JUDGEMENT: Poor judgement present (Psych) Skin: COMMON NORMALS: no rashes or lesions noted, no jaundice, no petechiae and no mottling GENERAL SKIN EXAM: no rashes or lesions noted Urinary Catheter Management^: Mann: Cath Placed During This Visit: yes, but has since been removed by the nurse Reason for Continuing Indwelling Catheter: Decision to DC Catheter Urinary Catheter Date of Insertion: 09/03/19 Urinary Catheter Time of Insertion: 16:30 Date Urinary Catheter Removed: 09/05/19 Time Urinary Catheter Discontinued: 06:30 Data : 09/07/19 05:06 09/07/19 05:06 A&P Assessment and plan (1) Fracture, subtrochanteric, right femur, closed: -Noted to have comminuted right proximal femur fracture on imaging -POD # 4, s/p ORIF by Dr. Richard -Ortho consult appreciated -EBL-200 mL; has underlying anemia and has already required total of 4 units PRBCs so continue to monitor H/H closely -Mann catheter removed (09/04); has been incontinent -VSS; continue to monitor -PT/OT evaluations appreciated; has had very limited participation with therapy -fall precautions -completed Clindamycin for periop abx ppx -supplemental oxygen as needed, IS -off IVF due to risk of fluid overload; encourage oral hydration -no BM yet, on bowel regimen -DVT ppx contraindicated due to significant anemia Status: Acute Qualifiers: Encounter type: initial encounter Fracture alignment: nondisplaced Qualified Code(s): S72.24XA - Nondisplaced subtrochanteric fracture of right femur, initial encounter for closed fracture (2) Normocytic anemia: -acute blood loss on chronic normocytic anemia; previously had macrocytic anemia secondary to vitamin B12 and folate deficiencies -plan for EGD and colonoscopy by Dr. Sapp; per my discussion with him, would like to wait at least 6-8 weeks post-op to allow for appropriate recovery -AC has been on hold; had previously been on Eliquis due to UE superficial DVT -s/p 4 units PRBCs due to acute drop in Hg (09/03 & 09/05); continue to closely monitor H/H. Hg increased to 9.4 today -baseline Hg appears to be around 11 -on PPI Status: Chronic (3) UTI (urinary tract infection): -UA indicative of infection -urine cx: Citrobacter frenundii, Enterobacter asburiae -off Ceftriaxone, on levaquin per sensitivity profile (renally dosed) -Mann catheter removed; incontinent -on Flomax as may have element of urinary retention Status: Acute Qualifiers: Hematuria presence: without hematuria Urinary tract infection type: acute cystitis Qualified Code(s): N30.00 - Acute cystitis without hematuria (4) CAD (coronary artery disease): -NSTEMI and code blue during hospitalization in 04/2019 -has been following up with cardiology -Echo (04/2019): EF=64%, no RWMA, G1DD, mild MR, trace AR -had coronary angiogram (06/2019) showing normal coronaries -on statin, BB Status: Chronic Qualifiers: Associated angina: with unstable angina Coronary Disease-Associated Artery/Lesion type: [place] artery [place] vs. transplanted heart: [place] heart Qualified Code(s): I25.110 - Atherosclerotic heart disease of [place] coronary artery with unstable angina pectoris (5) Congestive heart failure: -no acute exacerbation currently -last Echo: EF=64%, no RWMA, G1DD, mild MR, trace AR Status: Chronic Qualifiers: Heart failure chronicity: unspecified Heart failure type: unspecified Qualified Code(s): I50.9 - Heart failure, unspecified (6) DVT (deep venous thrombosis): -previously found to have R basilic vein DVT -had been on AC with Eliquis, now discontinued Status: Chronic Qualifiers: Affected thrombotic vein of extremity: other upper extremity vein Chronicity: unspecified DVT location: upper extremity Laterality: right Qualified Code(s): I82.621 - Acute embolism and thrombosis of deep veins of right upper extremity (7) Non-insulin dependent type 2 diabetes mellitus: -A1c-5.5 -Acchucheks, hypoglycemia precautions, ISS Status: Chronic (8) Hypertension: -VSS; continue to monitor Status: Chronic Qualifiers: Hypertension type: essential hypertension Qualified Code(s): I10 - Essential (primary) hypertension (9) Hypothyroidism: -Hx of thyroid cancer s/p thyroidectomy with acquired hypothyroidism -continue levothyroxine Status: Chronic Qualifiers: Hypothyroidism type: postoperative Qualified Code(s): E89.0 - Postprocedural hypothyroidism (10) COPD (chronic obstructive pulmonary disease): -follows up with Dr. Lane -no acute exacerbation, not oxygen dependent at baseline Status: Chronic Qualifiers: COPD type: unspecified COPD Qualified Code(s): J44.9 - Chronic obstructive pulmonary disease, unspecified (11) Hypocalcemia: -previously noted; corrected Ca-7.9 -PTH wnl Status: Chronic Additional A&P Information -Morbid obesity: BMI-41 kg/m2 -GEOVANNI -GERD; on PPI -CKD stage 2; baseline Cr around 1.5; stable renal function -with consistent confusion, forgetfulness, lack of insight, poor judgment, has at least moderate degree of dementia. Suspect that this will be her new baseline -high fall risk so may require 1:1 monitoring particularly as she seems to have limited insight and has difficulty comprehending current medical issues; requiring frequent redirection, encouragement and cueing. -GI ppx with PPI -DVT ppx with SCDs; no AC due to bleeding risk -Dispo: return to [facility]; spoke with son Benjamin Becerra and updated him on patient's clinical status including potential need for longer term stay due to dementia and likelihood of diminished functional capacity due to limited participation with therapy; also discussed anemia and contraindication to DVT ppx as a result of this -Code status: FULL code Attestations Medical Necessity Statement*: Discharge to SNF today Time Spent in Patient Care: 16 - 35 minutes (>than 50% of time spent in counselling and/or direct pt care on unit) . Coding Level of Care Code Acute Slip Cover Cutter for [facility] Fwd Exam Comprehensive Diagnoses Fracture, subtrochanteric, right femur, closed S72.24XA Encounter type: initial encounter Fracture alignment: nondisplaced Normocytic anemia D64.9 UTI (urinary tract infection) N30.00 Hematuria presence: without hematuria Urinary tract infection type: acute cystitis CAD (coronary artery disease) I25.110 Associated angina: with unstable angina Coronary Disease-Associated Artery/Lesion type: [place] artery [place] vs. transplanted heart: [place] heart Congestive heart failure I50.9 Heart failure chronicity: unspecified Heart failure type: unspecified DVT (deep venous thrombosis) I82.621 Affected thrombotic vein of extremity: other upper extremity vein Chronicity: unspecified DVT location: upper extremity Laterality: right Non-insulin dependent type 2 diabetes mellitus E11.9 Hypertension I10 Hypertension type: essential hypertension Hypothyroidism E89.0 Hypothyroidism type: postoperative COPD (chronic obstructive pulmonary disease) J44.9 COPD type: unspecified COPD Hypocalcemia E83.51
[2019-09-08] MEDS: folic acid 1 mg Tablet PO (09:11)
[2019-09-08] MEDS: tamsulosin 0.4 mg Capsule PO (09:11)
[2019-09-08] MEDS: sennosides-docusate Tablet 2 TAB PO (09:11)
[2019-09-08] MEDS: levothyroxine 25 mcg Tablet PO (09:13)
[2019-09-08] MEDS: levothyroxine 150 mcg Tablet PO (09:13)
[2019-09-08] MEDS: calcium carb-vit d 600mg/400unit 1 Tablet 1 EACH PO (09:13)
[2019-09-08] MEDS: sertraline 50 mg Tablet PO (09:13)
[2019-09-08] MEDS: metoprolol tartrate 25 mg Tablet PO (09:13)
[2019-09-08] MEDS: polyethylene glycol 3350 Pkt 17 gm PO (09:13)
[2019-09-08] MEDS: nystatin powder 15 gm Btl 1 APPLIC TOPICAL (09:13)
[2019-09-08] MEDS: fenofibrate 48 mg Tablet PO (09:13)
--- NOTE | 2019-09-08 09:20 | PC.SOCIAL ---
IMM Updated Page 2 of IMM updated and given to patient. Initialed, dated, and timed and placed back in chart.
[2019-09-08] MEDS: budesonide 0.5 mg/2 mL Neb INHALATION (09:33)
[2019-09-08 11:00] LABS: Glucose Point of Care 140 mg/dL (70-110)
--- NOTE | 2019-09-08 14:59 | PC.OT ---
OT attempted treatment today, however, pt refused to participate despite encouragement from therapist and sitter. Will attempt again in the AM.
--- NOTE | 2019-09-08 15:03 | P.DS_ITS ---
Discharge Providers Date of Admission: 09/03/19 20:33 Date of Discharge: September 08, 2019 Attending Provider at Admission: Eddie Spain MD Attending Provider at Discharge: Maxine Leroy MD Primary Care Provider: Viktor Baker MD Diagnoses at Discharge Discharge Diagnosis (1) Fracture, subtrochanteric, right femur, closed: Status: Acute Problem details: -Noted to have comminuted right proximal femur fracture on imaging -POD # 4, s/p ORIF by Dr. Richard -Ortho consult appreciated -EBL-200 mL; has underlying anemia and has already required total of 4 units PRBCs so continue to monitor H/H closely -Mann catheter removed (09/04); has been incontinent -VSS; continue to monitor -PT/OT evaluations appreciated; has had very limited participation with therapy -fall precautions -completed Clindamycin for periop abx ppx -supplemental oxygen as needed, IS -off IVF due to risk of fluid overload; encourage oral hydration -no BM yet, on bowel regimen -DVT ppx contraindicated due to significant anemia Qualifiers: Encounter type: initial encounter Fracture alignment: nondisplaced Qualified Code(s): S72.24XA - Nondisplaced subtrochanteric fracture of right femur, initial encounter for closed fracture (2) Normocytic anemia: Status: Chronic Problem details: -acute blood loss on chronic normocytic anemia; previously had macrocytic anemia secondary to vitamin B12 and folate deficiencies -plan for EGD and colonoscopy by Dr. Sapp; per my discussion with him, would like to wait at least 6-8 weeks post-op to allow for appropriate recovery -AC has been on hold; had previously been on Eliquis due to UE superficial DVT -s/p 4 units PRBCs due to acute drop in Hg (09/03 & 09/05); continue to closely monitor H/H. Hg increased to 9.4 today -baseline Hg appears to be around 11 -on PPI (3) UTI (urinary tract infection): Status: Acute Problem details: -UA indicative of infection -urine cx: Citrobacter frenundii, Enterobacter asburiae -off Ceftriaxone, on levaquin per sensitivity profile (renally dosed) -Mann catheter removed; incontinent -on Flomax as may have element of urinary retention Qualifiers: Hematuria presence: without hematuria Urinary tract infection type: acute cystitis Qualified Code(s): N30.00 - Acute cystitis without hematuria (4) CAD (coronary artery disease): Status: Chronic Problem details: -NSTEMI and code blue during hospitalization in 04/2019 -has been following up with cardiology -Echo (04/2019): EF=64%, no RWMA, G1DD, mild MR, trace AR -had coronary angiogram (06/2019) showing normal coronaries -on statin, BB Qualifiers: Associated angina: with unstable angina Coronary Disease-Associated Artery/Lesion type: [place] artery [place] vs. transplanted heart: [place] heart Qualified Code(s): I25.110 - Atherosclerotic heart disease of [place] coronary artery with unstable angina pectoris (5) Congestive heart failure: Status: Chronic Problem details: -no acute exacerbation currently -last Echo: EF=64%, no RWMA, G1DD, mild MR, trace AR Qualifiers: Heart failure chronicity: unspecified Heart failure type: unspecified Qualified Code(s): I50.9 - Heart failure, unspecified (6) DVT (deep venous thrombosis): Status: Chronic Problem details: -previously found to have R basilic vein DVT -had been on AC with Eliquis, now discontinued; not a good candidate for further anticoagulation due to underlying anemia Qualifiers: Affected thrombotic vein of extremity: other upper extremity vein Chronicity: unspecified DVT location: upper extremity Laterality: right Qualified Code(s): I82.621 - Acute embolism and thrombosis of deep veins of right upper extremity (7) Non-insulin dependent type 2 diabetes mellitus: Status: Chronic Problem details: -A1c-5.5 -Acchucheks, hypoglycemia precautions, ISS (8) Hypertension: Status: Chronic Problem details: -VSS; continue to monitor Qualifiers: Hypertension type: essential hypertension Qualified Code(s): I10 - Essential (primary) hypertension (9) Hypothyroidism: Status: Chronic Problem details: -Hx of thyroid cancer s/p thyroidectomy with acquired hypothyroidism -continue levothyroxine Qualifiers: Hypothyroidism type: postoperative Qualified Code(s): E89.0 - Postprocedural hypothyroidism (10) COPD (chronic obstructive pulmonary disease): Status: Chronic Problem details: -follows up with Dr. Lane -no acute exacerbation, not oxygen dependent at baseline Qualifiers: COPD type: unspecified COPD Qualified Code(s): J44.9 - Chronic obstructive pulmonary disease, unspecified (11) Hypocalcemia: Status: Chronic Problem details: -previously noted; corrected Ca-8.5 -PTH wnl Other Information Additional DC diagnoses/information: -Morbid obesity: BMI-41 kg/m2 -GEOVANNI -GERD; on PPI -CKD stage 2; baseline Cr around 1.5; stable renal function -with consistent confusion, forgetfulness, lack of insight, poor judgment, has at least moderate degree of dementia. Suspect that this will be her new baseline Reason for Visit Reason for Visit: RIGHT HIP PAIN S/P FALL Hospital Course Hospital Course: Patient was admitted to the medical surgical floor and following consultation with orthopedics secondary to right hip fracture she had ORIF done by Dr. Richard. Due to noted anemia just prior to surgery she received transfusion of 2 units of PRBCs and an additional 2 units of PRBCs following acute blood loss anemia up in the post-op period. She has at least moderate cognitive impairment secondary to dementia which has significantly impaired her ability to consistently participate in therapy post-op and due to this she has also required one-on-one monitoring. She did have a Mann catheter placed in the ER that was discontinued post-op and she has been incontinent which appears to be her baseline. She is not a candidate for DVT prophylaxis secondary to underlying anemia. I did update her son Benjamin Becerra as to her medical status including labs, limited participation with therapy, risk of DVT without prophylaxis and minimal mobilization and potential transition to monitored memory unit secondary to her dementia. GI work-up for her anemia is pending though she has already been seen by Dr. Sapp. Renal function has been stable, she does have hypocalcemia though her most recent calcium is low normal. Oral intake has been modest. She did have some episodes of hemodynamic instability likely due to acute blood loss anemia as this has improved with transfusion. I have discontinued her diuretics for this reason in addition to aspirin. She was found to have a UTI and has been on renally dosed Levaquin which she will continue on discharge to complete her treatment course. Urine cultures are as noted above. She has consistently been afebrile. She has required some supplemental oxygen support during her hospital stay and this can be continued for patient comfort or to maintain her saturation at or above 92%. She will need to continue to be on fall precautions. Discharge Summary: -Patient to follow-up with her primary care provider within 1 week or per SNF -Patient to follow-up with Dr. Richard in 2-3 weeks -Patient to continue to follow up with cardiology, pulmonology Physical Exam Const: COMMON NORMALS: alert GENERAL APPEARANCE: cooperative, comfortable and anxious NUTRITIONAL APPEARANCE: obese morbidly obese ORIENTATION/CONS CIOUSNESS: Yes awake and Yes confused (repetitive in her questions) OTHER: - sitting in chair by bedside HENMT: COMMON NORMALS: normocephalic, atraumatic, hearing grossly normal bilaterally and moist oral mucous membranes HEAD & SCALP: normocephalic and atraumatic TEETH & GINGIVA: Yes edentulous Eye: COMMON NORMALS: Equal, round and reactive pupils present, EOMs intact bilaterally and conjunctivae normal CONJUNCTIVA: Yes conjunctivae normal PUPIL: Yes Equal, round and reactive pupils present Neck/C-Spine: COMMON NORMALS: full ROM GENERAL: Yes normal visual inspection and Yes trachea midline Resp: COMMON NORMALS: normal respiratory effort, No retractions, No use of accessory muscles and clear to auscultation bilaterally EFFORT & INSPECTION: Yes able to speak in complete sentences, Yes symmetric chest movement and No tachypneic AUSCULTATION: clear to auscultation bilaterally OTHER: -on RA Cardio: COMMON NORMALS: regular rate, regular rhythm, S1 normal heart sound present, S2 normal heart sound present and No murmurs present (Cardio) RATE: regular rate RHYTHM: regular rhythm HEART SOUNDS: S1 normal heart sound present and S2 normal heart sound present GI: COMMON NORMALS: Normal to inspection, nondistended, normoactive bowel sounds present, Soft to palpation and non-tender INSPECTION: Yes central obesity PALPATION: Yes Soft to palpation : BLADDER/KIDNEY EXAM: No catheter in place Extremity: COMMON NORMALS: normal to inspection, full ROM, no clubbing, cyanosis or edema and no pedal edema NARRATIVE EXTREMITY EXAM: -RLE: noted incision sites with clean/dry/intact dressings; R thigh soft to palpation though edematous, no noted hematoma but has residual brusing around upper lateral thigh Neuro: COMMON NORMALS: moves all extremities (significantly decreased ROM of RLE), no focal motor deficits and no sensory deficits noted SENSORIUM/ORIENTATION: Yes alert Psych: COMMON NORMALS: cooperative and speech normal SPEECH: Yes normal speech MOOD & AFFECT: Yes anxious THOUGHT PROCESS: confused MEMORY/COGNITION: Yes memory grossly impaired and Yes cognition grossly impaired INSIGHT: Poor insight present (Psych) JUDGEMENT: Poor judgement present (Psych) Skin: COMMON NORMALS: no rashes or lesions noted, no jaundice, no petechiae and no mottling GENERAL SKIN EXAM: no rashes or lesions noted Urinary Catheter Management^: Mann: Cath Placed During This Visit: yes, but has since been removed by the nurse Reason for Continuing Indwelling Catheter: Decision to DC Catheter Urinary Catheter Date of Insertion: 09/03/19 Urinary Catheter Time of Insertion: 16:30 Date Urinary Catheter Removed: 09/05/19 Time Urinary Catheter Discontinued: 06:30 Discharge Data Data Completed and Pending: Completed Studies During Hospitalization Category Date Time Status CT cervical spin wo con* 19482 Urge nt Cat Scan 09/03/19 16:[address] head wo con* 7 0450 Stat Cat Scan 09/03/19 16:49 Completed XR femur RT min 2 V* [id number] Stat Exams 09/03/19 16:01 Completed XR hip RT 2-3V wo /w pel* [id number] Rout ine Exams 09/04/19 18:41 Completed XR hip RT 2-3V wo /w pel* [id number] Stat Exams 09/03/19 16:01 Completed Pending at discharge Category Date Time Status Blood Culture Sta t Lab 09/04/19 05:22 Results Immunochemical Fe christina OCB Routine Lab 09/04/19 07:40 Uncollected Labs from last 24 hours 09/08/19 09/08/19 09/07/19 10:55 06:16 20:44 POC Glucose 140 96 115 09/07/19 16:30 POC Glucose 111 Vitals: Last Vital Signs Temp 98.4 F 09/08/19 11:46 Pulse 90 09/08/19 11:46 Resp 18 09/08/19 11:46 BP 110/67 09/08/19 11:46 Pulse Ox 97 09/08/19 11:46 Discharge Plan Discharge Patient Disposition: Xfer SNF Condition: Stable Prescriptions: New levofloxacin 750 mg Tablet 750 mg PO Q48H Qty: 7 RF: 0 furosemide 20 mg tablet 20 mg PO DAILY Qty: 30 RF: 0 hydrocodone-acetaminophen 5-325 mg Tablet 1 - 2 tab PO Q6H PRN (Reason: Breakthrough Pain) Qty: 30 RF: 0 Continued potassium chloride 20 mEq tablet extended release 10 meq PO BID RF: 0 cyanocobalamin (vitamin B-12) [Vitamin B-12] 500 mcg tablet 1,000 mcg PO DAILY RF: 0 metoprolol tartrate 25 mg tablet 25 mg PO BID RF: 0 folic acid 1 mg tablet 1 mg PO DAILY RF: 0 albuterol sulfate 2.5 mg/0.5 mL solution for nebulization 2.5 mg INHALATION Q6H PRN (Reason: unknown) RF: 0 Anoro Ellipta 62.5-25 mcg/actuation blister with device 1 inh INHALATION DAILY RF: 0 albuterol sulfate [Ventolin HFA] 90 mcg/actuation HFA aerosol inhaler 2 puff INHALATION Q6H PRN (Reason: Shortness Of Breath) RF: 0 sertraline [Zoloft] 50 mg tablet 50 mg PO DAILY RF: 0 magnesium oxide 400 mg magnesium capsule 400 mg PO BID Qty: 60 RF: 0 levothyroxine 175 mcg Tablet 175 mcg PO DAILY 30 Days Qty: 30 RF: 0 Januvia 100 mg PO DAILY 30 Days Qty: 30 RF: 0 omeprazole 40 mg PO DAILY 30 Days Qty: 30 RF: 0 nitroglycerin 0.4 mg tablet, sublingual 0.4 mg SUBLINGUAL Q5M PRN (Reason: Chest Pain) RF: 0 calcium carbonate 600 mg calcium (1,500 mg) Tablet 600 mg PO BID RF: 0 fenofibrate nanocrystallized 48 mg Tablet 48 mg PO DAILY RF: 0 nystatin 100,000 unit/gram Cream See Rx Instructions .ROUTE .COMPLEX RF: 0 magnesium citrate Solution See Rx Instructions .ROUTE .COMPLEX RF: 0 Culturelle 15 billion cell Capsule, Sprinkle 1 cap PO DAILY RF: 0 Tylenol 325 mg Tablet 650 mg PO Q6H PRN (Reason: Pain, Mild) Qty: 0 RF: 0 Myrbetriq 25 mg tablet extended release 24 hr 25 mg PO DAILY RF: 0 polyethylene glycol 3350 [Miralax] 17 gram/dose Powder 17 g PO DAILY PRN (Reason: Constipation) RF: 0 atorvastatin 40 mg Tablet 40 mg PO BEDTIME Qty: 30 RF: 0 ferrous sulfate 325 mg (65 mg iron) Tablet,Delayed Release (Dr/Ec) 325 mg PO BIDWM Qty: 60 RF: 0 Discontinued bisacodyl [Dulcolax (bisacodyl)] 5 mg Tablet,Delayed Release (Dr/Ec) 20 mg PO ONCE RF: 0 aspirin [Adult Aspirin Regimen] 81 mg tablet,delayed release (DR/EC) 81 mg PO DAILY Qty: 30 RF: 0 furosemide [Lasix] 80 mg tablet 40 mg PO BID Qty: 60 RF: 0 Discharge Orders: Discharge Order (Routine); Ordered 09/08/19 Ordered By: Maxine Leroy Referrals: Viktor Baker MD [Primary Care Provider] - 4-7 days (Post-hospital discharge follow up. Had a fall with R hip fracture, now s/p ORIF. Required transfusion post-op x 4 units. care home to schedule. ) Talon Richard MD [Physician] - 2 weeks (Post-op follow up for R hip fracture s/p ORIF) Discharge Diet: Cardiac and Diabetic Discharge Activity: Limit activity as instructed and As per PT/OT instructions Patient Instructions: Furosemide (By mouth), Hydrocodone/Acetaminophen (By mouth), Levofloxacin (By mouth), Open Reduction and Internal Fixation of a Hip Fracture (DC) Activity Restrictions/Additional Instructions: -Patient requires strict fall precautions -She may need supplemental oxygen for comfort or to maintain her oxygen saturation at or above 92% Discharge Attestations Time Spent in Discharge Care*: greater than 30 min Specific Discharge Activities: Specific discharge activities: educating patient, educating and/or supporting family/caregiver, discussing with ed case manager/social workers/dc planners, documenting/other paperwork and evaluating patient/reviewing data Status at Discharge: Cognitive status at discharge: moderately impaired cognition , Behavioral status at discharge: cooperative, can be uncooperative and dependent in ADL's , Functional status at discharge: other assisted ambulation Overall status at discharge: patient has a new baseline Quality Metrics Clinical Quality Measures During this hospital stay, did patient experience: None Coding Level of Care Code Acute Snap Shearer for [facility] Fwd Exam Comprehensive Diagnoses Fracture, subtrochanteric, right femur, closed S72.24XA Encounter type: initial encounter Fracture alignment: nondisplaced Normocytic anemia D64.9 UTI (urinary tract infection) N30.00 Hematuria presence: without hematuria Urinary tract infection type: acute cystitis CAD (coronary artery disease) I25.110 Associated angina: with unstable angina Coronary Disease-Associated Artery/Lesion type: [place] artery [place] vs. transplanted heart: [place] heart Congestive heart failure I50.9 Heart failure chronicity: unspecified Heart failure type: unspecified DVT (deep venous thrombosis) I82.621 Affected thrombotic vein of extremity: other upper extremity vein Chronicity: unspecified DVT location: upper extremity Laterality: right Non-insulin dependent type 2 diabetes mellitus E11.9 Hypertension I10 Hypertension type: essential hypertension Hypothyroidism E89.0 Hypothyroidism type: postoperative COPD (chronic obstructive pulmonary disease) J44.9 COPD type: unspecified COPD Hypocalcemia E83.51
--- NOTE | 2019-09-08 16:38 | PM.PN ---
Subjective Subjective: Interval history: Patient confused. Still complains of some left hip pain. Vitals/I&O/Wt Last Vital Signs Temp 97.9 F 09/08/19 15:19 Pulse 78 09/08/19 15:19 Resp 18 09/08/19 15:19 BP 104/44 09/08/19 15:19 Pulse Ox 95 09/08/19 15:19 09/08/19 09/08/19 09/08/19 06:59 14:59 22:59 Intake Total 440 / 440 Balance 440 / 440 Physical Exam Narrative: EXAM NARRATIVE: Left hip incisions clean and dry. Expected swelling and ecchymoses left thigh Urinary Catheter Management^: Mann: Cath Placed During This Visit: yes, but has since been removed by the nurse Reason for Continuing Indwelling Catheter: Decision to DC Catheter Urinary Catheter Date of Insertion: 09/03/19 Urinary Catheter Time of Insertion: 16:30 Date Urinary Catheter Removed: 09/05/19 Time Urinary Catheter Discontinued: 06:30 Data : 09/07/19 05:06 09/07/19 05:06 A&P Assessment and plan (1) Postoperative state: Patient not a therapy candidate. We will transfer her bed to wheelchair. We will leave for [facility] today. They may discontinue viridiana at [facility] in 2 weeks. I will see her back in my clinic in 6 weeks with x-rays when she is more mobile. I think mobile radiographs would be acceptable. Status: Acute Attestations Medical Necessity Statement*: As per medicine Coding Level of Care Code Acute Building Services Supervisor for [facility] Diagnoses Postoperative state Z98.890
[2019-09-08 16:50] LABS: Glucose Point of Care 129 mg/dL (70-110)
== END 2019-09-08 16:55 | disposition skilled nursing facility (03) | DRG 481 ==
LOC: ER 17:59 → MEDSURG 20:47
PROVIDERS: Emergency Medicine; Orthopaedic Surgery; Student in an Organized Health Care Education/Training Program; Admitting Provider Internal Medicine; PCP Family Medicine; Visit Provider Family Medicine
PROC: 0QS606Z Reposition Right Upper Femur with Intramedullary Internal Fixation Device, Open Approach (ICD-10-PCS; CPT 27245; principal; 2019-09-04 12:30)
DX: S72.21XA Displaced subtrochanteric fracture of right femur, initial encounter for closed fracture (principal); I13.0 Hypertensive heart and chronic kidney disease with heart failure and stage 1 through stage 4 chronic kidney disease, or unspecified chronic kidney disease; I50.32 Chronic diastolic (congestive) heart failure; D62 Acute posthemorrhagic anemia; K92.2 Gastrointestinal hemorrhage, unspecified; N30.00 Acute cystitis without hematuria; Z68.41 Body mass index [BMI] 40.0-44.9, adult; W18.39XA Other fall on same level, initial encounter; Y93.9 Activity, unspecified; Y92.129 Unspecified place in nursing home as the place of occurrence of the external cause; F03.90 Unspecified dementia, unspecified severity, without behavioral disturbance, psychotic disturbance, mood disturbance, and anxiety; E89.0 Postprocedural hypothyroidism; Z85.850 Personal history of malignant neoplasm of thyroid; N18.2 Chronic kidney disease, stage 2 (mild); E11.22 Type 2 diabetes mellitus with diabetic chronic kidney disease; G47.33 Obstructive sleep apnea (adult) (pediatric); K21.9 Gastro-esophageal reflux disease without esophagitis; I25.10 Atherosclerotic heart disease of native coronary artery without angina pectoris; E53.8 Deficiency of other specified B group vitamins; D50.9 Iron deficiency anemia, unspecified; I25.2 Old myocardial infarction; Z86.74 Personal history of sudden cardiac arrest; Z79.51 Long term (current) use of inhaled steroids; E83.51 Hypocalcemia; E66.01 Morbid (severe) obesity due to excess calories; Z86.718 Personal history of other venous thrombosis and embolism; B96.89 Other specified bacterial agents as the cause of diseases classified elsewhere
CPT/HCPCS: 12345; 36415; 36416; 36430; 51702; 70450; 72125; 73502; 73552; 76000; 80048; 80053; 81001; 82962; 83540; 83550; 83735; 83880; 85014; 85018; 85025; 86850; 86900; 86920; 87040; 87077; 87086; 87186; 93005; 94640; 96372; 96375; 97110; 97162; 97165; 97530; 99283; C1713; C1776; C9113; J0131; J0330; J0696; J1170; J1815; J1940; J2001; J2270; J2405; J3010; J3490; J7030; J7626; P9016

== ENCOUNTER 2019-09-15 19:13 | Emergency (ER) | payer MEDICARE, MEDICAID, SELFPAY ==
[2019-09-15 19:13] VITALS: BP 137/64; PULSE 72; RESP 18; TEMP 36.6; O2SAT 99; BMI 33.2
--- NOTE | 2019-09-15 19:18 | XR_ITS ---
WS: [id number] XR pelvis 1-2V* [id number] REASON FOR EXAM: Fall FINDINGS: AP pelvis There is evidence of internal fixation of the right hip with gamma nails. The alignment is satisfacto ry. The ilium, ischium, and pubis are normal. Stable fracture of the right hip with internal fixation with a gamma nail The pelvis was normal. XR/XR pelvis 1-2V* [id number] IMPRESSION: Stable internal fixation of the right hip with a gamma nail.
--- NOTE | 2019-09-15 19:23 | XR_ITS ---
WS: [id number] XR tibia fibula LT 2V [id number] REASON FOR EXAM: Fall/injury FINDINGS: Remote fractures of the distal fibula and tibia which are healed with slight deformity. At the ankle joint there is degenerate changes there appears to be questionable osteochondral defects along the talar dome. The proximal tibia fibula were normal. XR/XR tibia fibula LT 2V [id number] IMPRESSION: Healed fractures the distal tibia and fibula There is deformity at the ankle suggesting osteochondral defects.
--- NOTE | 2019-09-15 19:30 | ED_ITS ---
HPI - Fall General: Chief Complaint: Fall Stated Complaint: fall/ left hip and leg pain Time Seen by Provider: 09/15/19 19:13 Source: patient and EMS Mode of arrival: EMS Limitations: no limitations History of Present Illness: HPI Narrative: Michelle is a nice 74-year-old female who comes in from the senior care via EMS after she had a slide to the ground as she slipped out of her chair landing on her bottom. Patient really has no hip pain but she hit her anterior left reynolds on her walker and has a bruise and pain in this area. She is recovering from a recent right hip fr acture and at this time she is walking with assistance and a walker. She denies any head injury, neck injury, back or torso injury. She states she has no pain in her pelvis. Her only complaint at this time is pain to the anterior left reynolds. Associated symptoms-after fall: Denies abdominal pain, chest pain, confusion, difficulty walking, headache(s), hematuria, lightheadedness, neck pain or vertigo Review of Systems Const: Denies: fever(s), chills, body aches, fatigue, malaise or diaphoresis Eyes: Denies: change in vision, blurry vision, blind spots, photophobia, eye discharge or eye redness ENMT: Denies: throat pain, odynophagia, hoarseness, swelling of lips/tongue, oral sores, ear or mastoid pain, ear discharge, change in hearing or nasal discharge Card: Denies: chest pain, palpitations, irregular heart rhythm, edema, lightheadedness, syncope, pre-syncope, dyspnea on exertion or orthopnea Resp: Denies: dyspnea, productive cough, non-productive cough, wheezing, hemoptysis or chest congestion GI: Denies: abdominal pain, nausea, vomiting, hematemesis, coffee ground emesis, heartburn, diarrhea, constipation, GI cramping, hematochezia or melena : Denies: flank pain, dysuria, urinary frequency, urinary urgency or hematuria Musc: Reports: extremity pain; Denies: neck pain, back pain, extremity swelling, joint pain, joint swelling, joint redness, joint warmth or joint stiffness Skin/Breast: Denies: rash, pruritus, erythema, skin tenderness or jaundice Neuro: Denies: headache(s), numbness in extremities, weakness in extremities, sensory changes, lack of coordination, difficulty walking, dizziness, vertigo, confusion, Slurred speech present or seizure-like activity Wai/Lymph: Denies: easy bruising, easy bleeding, petechiae, purpura or enlarged lymph nodes All/Imm: Denies: urticaria, throat swelling, tongue swelling, facial swelling or acute wheezing PFSH ED PFSH: Medical History Acute respiratory failure with hypoxia -Required intubation following CODE BLUE, extubated on 05/14 CAD (coronary artery disease) -NSTEMI and code blue during hospitalization in 04/2019 -has been following up with cardiology -Echo (04/2019): EF=64%, no RWMA, G1DD, mild MR, trace AR -had coronary angiogram (06/2019) showing normal coronaries -on statin, BB COPD (chronic obstructive pulmonary disease) -follows up with Dr. Lane -no acute exacerbation, not oxygen dependent at baseline Dementia Hypertension -VSS; continue to monitor Hypothyroidism -Hx of thyroid cancer s/p thyroidectomy with acquired hypothyroidism -continue levothyroxine Lymphedema Macrocytic anemia -has chronic macrocytic anemia; has evidence of vitamin B12 and folate deficiency -replacing vitamin B12, folate -also noted evidence of low iron Non-insulin dependent type 2 diabetes mellitus -A1c-5.5 -Acchucheks, hypoglycemia precautions, ISS NSTEMI (non-ST elevated myocardial infarction) Surgical History (Updated 09/05/19 @ 13:23 by Talon Richard MD) H/O thyroidectomy History of ankle surgery S/P cholecystectomy Family History Other Breast cancer CAD (coronary artery disease) Diabetes Hypertension Social History Smoking and tobacco status: never smoked Quit status (tobacco): has quit using tobacco Former quit date comment: Smoked briefly in her teens. Alcohol intake: never Lives independently: Yes Household members: none Housing: Apartment Current occupational status: disabled History of recent travel: No Current gender identity: Female Physical Exam Const: COMMON NORMALS: no acute distress, patient oriented x3, no limitations, healthy appearing and well nourished GENERAL APPEARANCE: cooperative, well kempt and well developed HENMT: COMMON NORMALS: normocephalic, atraumatic, external ears normal, EAC's normal and Normal external nose present HEAD & SCALP: normal to inspection, normocephalic and atraumatic FACE & SINUS: normal facial exam and face symmetric NOSE: Normal external nose present and Normal nares present EXTERNAL EAR: Yes external ears normal EXTERNAL AUDITORY CANAL: EAC's normal MOUTH: Normal oral and palatal mucosa present, lip normal and tongue normal Eye: COMMON NORMALS: Equal, round and reactive pupils present and conjunctivae normal GENERAL EYE: appearance normal, both eyes and all related structures ALIGNMENT: Yes alignment normal PERIORBITAL: periorbital findings normal EYELID: eyelids normal CONJUNCTIVA: Yes conjunctivae normal SCLERA: sclerae normal PUPIL: Yes Equal, round and reactive pupils present Neck/C-Spine: COMMON NORMALS: full ROM, no lymphadenopathy, supple, no meningeal signs and no JVD GENERAL: Yes normal visual inspection and Yes trachea midline Chest: COMMONS NORMALS: normal inspection of the chest and normal palpation of entire chest wall Resp: COMMON NORMALS: normal respiratory effort, No retractions and No use of accessory muscles EFFORT & INSPECTION: Yes able to speak in complete sentences and Yes symmetric chest movement AUSCULTATION: no crackles, no rales, no rhonchi and no wheezes Cardio: COMMON NORMALS: no JVD, regular rate, regular rhythm, S1 normal heart sound present and S2 normal heart sound present RATE: regular rate RHYTHM: regular rhythm HEART SOUNDS: S1 normal heart sound present, S2 normal heart sound present, no click, no gallops, no murmurs, no rubs and abnormal split S2 GI: COMMON NORMALS: Soft to palpation and No hepatosplenomegaly present PALPATION: Yes Soft to palpation, No Tenderness to palpation present (GI), No Guarding due to palpation present (GI), No Rigid due to palpation, Yes No hepatosplenomegaly present, No Hernia present, No Palpable mass present and No Pulsatile mass present : COMMON NORMALS: Yes no CVA tenderness BLADDER/KIDNEY EXAM: Yes no CVA tenderness EXTERNAL FEMALE EXAM: No Hernia present Back/Pelvis: COMMON NORMALS: no CVA tenderness, thoracic and lumbar spine n ormal to inspection, no thoracic nor lumbar tenderness and thoraco-lumbar ROM normal Extremity: NARRATIVE EXTREMITY EXAM: Left anterior reynolds with ecchymosis and contusion noted. Small amount of erythema is noted surrounding the contusion but no obvious laceration or puncture wound to the reynolds seen. Area is mildly tender to palpation. She is neurovascular intact distal to this. The remaining musculoskeletal exam is unremarkable. Neuro: COMMON NORMALS: patient oriented x3, CN's II-XII intact bilaterally, moves all extremities, no focal motor deficits and no sensory deficits noted MENINGEAL SIGNS: Yes no meningeal signs SPEECH: speech normal Psych: APPEARANCE: Yes well kempt Skin: COMMON NORMALS: no rashes or lesions noted, turgor normal, no jaundice, no petechiae and no mottling GENERAL SKIN EXAM: no rashes or lesions noted and turgor normal Course Vital Signs: Vital signs: Vital Signs Temperature 97.8 F 09/15/19 19:13 Pulse Rate 68 09/15/19 21:38 Respiratory Rate 17 09/15/19 21:38 Blood Pressure 156/74 09/15/19 21:38 Pulse Oximetry 98 09/15/19 21:38 MDM - Fall MDM Narrative: Medical decision making narrative: Mrs. Becerra is a nice 74-year-old female who was brought to the hospital after she slid out of her chair landing on her bottom. She denies any pain to her pelvis or buttocks and her pelvis x-ray is negative. She does complain of pain to the anterior reynolds in the areas noted to have some contusion and mild erythema. It is possible this has developed today but with the cellulitis I am wondering if some of this is old. I see no direct breaks in the skin. I see no evidence of deep underlying abscess. All of this is anterior and not in the posterior portion of the leg. I will place the patient on Keflex to prevent any further spreading of this possible cellulitis and she will take her regular medications for pain at home. Imaging Data^: Pelvis: My impression: No acute fractures or dislocations Right Tib-Fib: Attestation: I personally reviewed and interpreted this imaging study as follows: My impression: No acute fractures. No foreign bodies. Discharge Plan Discharge Patient Disposition: Home, Self-Care Clinical Impression: Contusion Qualifiers: Encounter type: initial encounter Contusion area: lower leg Laterality: left Qualified Code(s): S80.12XA - Contusion of left lower leg, initial encounter Cellulitis Qualifiers: Site of cellulitis: extremity Site of cellulitis of extremity: lower extremity Laterality: left Qualified Code(s): L03.116 - Cellulitis of left lower limb Condition: Stable Prescriptions: New Keflex 500 mg capsule 500 mg PO Q6H 10 Days Qty: 40 RF: 0 No Action potassium chloride 20 mEq tablet extended release 10 meq PO BID RF: 0 cyanocobalamin (vitamin B-12) [Vitamin B-12] 500 mcg tablet 1,000 mcg PO DAILY RF: 0 metoprolol tartrate 25 mg tablet 25 mg PO BID RF: 0 folic acid 1 mg tablet 1 mg PO DAILY RF: 0 albuterol sulfate 2.5 mg/0.5 mL solution for nebulization 2.5 mg INHALATION Q6H PRN (Reason: unknown) RF: 0 Anoro Ellipta 62.5-25 mcg/actuation blister with device 1 inh INHALATION DAILY RF: 0 albuterol sulfate [Ventolin HFA] 90 mcg/actuation HFA aerosol inhaler 2 puff INHALATION Q6H PRN (Reason: Shortness Of Breath) RF: 0 magnesium oxide 400 mg magnesium capsule 400 mg PO BID Qty: 60 RF: 0 levothyroxine 175 mcg Tablet 175 mcg PO DAILY 30 Days Qty: 30 RF: 0 Januvia 100 mg PO DAILY 30 Days Qty: 30 RF: 0 omeprazole 40 mg PO DAILY 30 Days Qty: 30 RF: 0 nitroglycerin 0.4 mg tablet, sublingual 0.4 mg SUBLINGUAL Q5M PRN (Reason: Chest Pain) RF: 0 calcium carbonate 600 mg calcium (1,500 mg) Tablet 600 mg PO BID RF: 0 fenofibrate nanocrystallized 48 mg Tablet 48 mg PO DAILY RF: 0 nystatin 100,000 unit/gram Cream See Rx Instructions .ROUTE .COMPLEX RF: 0 magnesium citrate Solution See Rx Instructions .ROUTE .COMPLEX RF: 0 Culturelle 15 billion cell Capsule, Sprinkle 1 cap PO DAILY RF: 0 levofloxacin 750 mg Tablet 750 mg PO Q48H Qty: 7 RF: 0 furosemide 20 mg tablet 20 mg PO DAILY Qty: 30 RF: 0 hydrocodone-acetaminophen 5-325 mg Tablet 1 - 2 tab PO Q6H PRN (Reason: Breakthrough Pain) Qty: 30 RF: 0 acetaminophen [Tylenol] 325 mg Tablet 650 mg PO Q6H PRN (Reason: Pain, Mild) Qty: 0 RF: 0 Myrbetriq 25 mg tablet extended release 24 hr 25 mg PO DAILY RF: 0 polyethylene glycol 3350 [Miralax] 17 gram/dose Powder 17 g PO DAILY PRN (Reason: Constipation) RF: 0 atorvastatin 40 mg Tablet 40 mg PO BEDTIME Qty: 30 RF: 0 ferrous sulfate 325 mg (65 mg iron) Tablet,Delayed Release (Dr/Ec) 325 mg PO BIDWM Qty: 60 RF: 0 Discharge Orders: Discharge Order (Routine); Ordered 09/15/19 Ordered By: Danielle Ramirez Referrals: Viktor Baker MD [Primary Care Provider] - 1-3 days Discharge Diet: Advance as tolerated Discharge Activity: Increase activity as tolerated Patient Instructions: Cellulitis (ED), Contusion in Adults (ED) Activity Restrictions/Additional Instructions: Please return to the ER immediately for any of the signs or symptoms listed on your discharge instruction sheets, worsening/changing of your symptoms, you are not getting better as quickly as expected, or for ANY other cause or concerns. Return to the ER for increased pain, spreading of the redness on your leg, numbness or weakness in your foot or ankle, fever, or for any other cause for concern. Discharge Date/Time: 09/15/19 21:43 Coding Level of Care Code ED Service And Rep[employer] Supervisor for [facility] Fwd Exam Comprehensive
[2019-09-15] MEDS: cephALEXin 500 mg Capsule PO (21:10)
[2019-09-15] MEDS: HYDROcodone-acetaminophen 5-325 mg Tablet 1 TAB PO (21:11)
[2019-09-15 21:14] VITALS: BP 134/69; PULSE 72; RESP 18; O2SAT 100
[2019-09-15 21:38] VITALS: BP 156/74; PULSE 68; RESP 17; O2SAT 98
== END 2019-09-15 21:43 | disposition home or self-care (01) ==
PROVIDERS: Emergency Provider Emergency Medicine; PCP Family Medicine
DX: S80.12XA Contusion of left lower leg, initial encounter (principal); L03.116 Cellulitis of left lower limb; Z87.891 Personal history of nicotine dependence; I25.10 Atherosclerotic heart disease of native coronary artery without angina pectoris; I25.2 Old myocardial infarction; J44.9 Chronic obstructive pulmonary disease, unspecified; F03.90 Unspecified dementia, unspecified severity, without behavioral disturbance, psychotic disturbance, mood disturbance, and anxiety; I10 Essential (primary) hypertension; E11.9 Type 2 diabetes mellitus without complications; W07.XXXA Fall from chair, initial encounter
CPT/HCPCS: 12345; 72170; 73590; 99281; 99283

== ENCOUNTER 2019-09-20 05:54 | Day surgery (SDC) | payer MEDICARE, MEDICAID, SELFPAY ==
--- NOTE | 2019-09-03 19:21 | PM.HP ---
Providers/Chief Complaint Primary Care Provider: Viktor Baker MD Chief Complaint: GI Bleed History of Present Illness Michelle Becerra is a 74 year old female who carries a history of dementia, hypothyroidism secondary to thyroidectomy due to thyroid cancer, type 2 diabetes, preserved ejection fraction heart failure, hypertension, sleep apnea, GERD, GI bleed, anemia came in after sustaining a fall. Patient is not able to give any details. I called custodial. Nurses stating that for last couple of days she has been trying to transfer herself from bed to the wheelchair, she is 1 person assist mostly, today when she was trying to transfer herself from bed to the wheelchair she fell on the floor, she was in excruciating pain and right leg was shorter as compared to the left. She was sent to the ED for further evaluation, x-ray revealed right hip fracture. Review of previous records revealed that she was intubated after CODE BLUE, she has full CODE STATUS, she was asked to follow-up with Dr. Sapp for EGD& colonoscopy, she was taken off anticoagulation because of her persistent anemia positive occult blood in stool Diagnosis in the ER revealed worsening anemia, she is hypertensive, not tachycardic, EKG revealed normal sinus rhythm, Review of Systems General: Reports: ROS unobtainable due to medical condition (Dementia and recently she was given opioid analgesics) Medications/Allergies Home Medications Medication Instructions Recorded Confirmed Last Taken Type Januvia 100 mg PO DAILY 30 Days #30 tab 05/20/19 09/03/19 09/03/19 Rx levothyroxine 175 mcg PO DAILY 30 Days #30 tab 05/20/19 09/03/19 09/03/19 Rx omeprazole 40 mg PO DAILY 30 Days #30 tab 05/20/19 09/03/19 09/03/19 Rx albuterol sulfate 2.5 mg/0.5 mL 2.5 mg INHALATION Q6H PRN each 06/30/19 09/03/19 Unknown History solution for nebulization cyanocobalamin (vitamin B-12) 500 1,000 mcg PO DAILY 06/30/19 09/03/19 09/03/19 History mcg tablet folic acid 1 mg tablet 1 mg PO DAILY 06/30/19 09/03/19 09/03/19 History metoprolol tartrate 25 mg tablet 25 mg PO BID 06/30/19 09/03/1920 History potassium chloride 20 mEq 10 meq PO BID 06/30/19 09/03/19 09/03/19 History tablet,extended release albuterol sulfate 90 mcg/actuation 2 puff INHALATION Q6H PRN 07/06/19 09/03/19 Unknown History aerosol inhaler umeclidinium 62.5 mcg-vilanterol 1 inh INHALATION DAILY 07/06/19 09/03/19 09/03/19 History 25 mcg/actuation powdr for inhalation Myrbetriq 25 mg PO DAILY 07/11/19 09/03/19 09/03/19 History polyethylene glycol 3350 [Miralax] 17 g PO DAILY PRN 07/11/19 09/03/19 07/25/19 History magnesium oxide 400 mg PO BID #60 cap 07/25/19 09/03/19 09/03/19 Rx nitroglycerin 0.4 mg SUBLINGUAL Q5M PRN 07/26/19 09/03/19 Unknown History atorvastatin 40 mg PO BEDTIME #30 tab 08/05/19 09/03/19 09/02/19 Rx aspirin [Adult Aspirin Regimen] 81 mg PO DAILY #30 tab 08/15/19 09/03/19 09/03/19 Rx ferrous sulfate 325 mg PO BIDWM #60 tab 08/15/19 09/03/19 09/03/19 Rx furosemide [Lasix] 40 mg PO BID #60 tab 08/15/19 09/03/19 09/03/19 Rx sertraline 50 mg tablet 50 mg PO DAILY 08/30/19 09/03/19 09/03/19 History Lactobacillus rhamnosus GG 1 cap PO DAILY 09/03/19 09/03/19 09/03/19 History [Culturelle] acetaminophen [Tylenol] 650 mg PO Q6H PRN 09/03/19 09/03/19 Unknown History bisacodyl [Dulcolax (bisacodyl)] 20 mg PO ONCE 09/03/19 09/03/19 Unknown History calcium carbonate 600 mg PO BID 09/03/19 09/03/19 09/03/19 History fenofibrate nanocrystallized 48 mg PO DAILY 09/03/19 09/03/19 09/03/19 History magnesium citrate See Rx Instructions .ROUTE .COMPLEX 09/03/19 09/03/19 Unknown History nystatin See Rx Instructions .ROUTE .COMPLEX 09/03/19 09/03/19 Unknown History Allergies Allergy/AdvReac Type Severity Reaction Status Date / Time methylprednisolone Allergy ALGY-Rash Verified 08/30/19 13:53 [From Solu-Medrol] piperacillin [From Zosyn] Allergy ALGY-Rash Verified 08/30/19 13:53 tazobactam [From Zosyn] Allergy ALGY-Rash Verified 08/30/19 13:53 PFSH Acute PFSH: Medical History Acute respiratory failure with hypoxia -Required intubation following CODE BLUE, extubated on 05/14 CAD (coronary artery disease) Coronaries appeared normal on angiogram April 2019 Dementia Hypertension Hypothyroidism Well-controlled Lymphedema Macrocytic anemia -has chronic macrocytic anemia; has evidence of vitamin B12 and folate deficiency -replacing vitamin B12, folate -also noted evidence of low iron Non-insulin dependent type 2 diabetes mellitus NSTEMI (non-ST elevated myocardial infarction) Surgical History H/O thyroidectomy History of ankle surgery S/P cholecystectomy Family History Other Breast cancer CAD (coronary artery disease) Diabetes Hypertension Social History Smoking and tobacco status: former smoker Quit status (tobacco): has quit using tobacco Former quit date comment: Smoked briefly in her teens. Alcohol intake: never Lives independently: Yes Household members: none Housing: Apartment Current occupational status: disabled History of recent travel: No Current gender identity: Female Physical Exam Narrative: EXAM NARRATIVE: Head to toe examination Patient laying in her bed with distress due to pain She is able to understand my questions but most of the answers she is giving is she cannot recall She is able to follow my commands S1, S2 fluid overloaded clinically Hypertension systolic blood pressure 180s No active respiratory distress She is only oriented to herself Bilateral lower extremity edema 2+, pedal edema 2+ Right leg is shortened and rotated No vascular compromise Bilateral breath sounds diminished breath sounds, Skin shows mild hyperemia of left ankle area without cellulitis Venous stasis dermatitis Cognitive impairment A&P Assessment and plan (1) Closed right hip fracture: Status: Acute (2) Normocytic anemia: Status: Acute (3) GI bleed: Status: Acute (4) UTI (urinary tract infection): Status: Acute (5) Fall: Status: Acute Qualifiers: Encounter type: initial encounter Qualified Code(s): W19.XXXA - Unspecified fall, initial encounter Additional A&P Information Right hip fracture after sustaining a fall while getting out of bed Orthopedic consult N.p.o. after midnight Analgesic control with morphine with close monitoring to her vitals and respiratory status Her anticoagulants were discontinued because of GI bleed She has a history of cardiac arrest requiring intubation in April, she is very high risk for perioperative complications, her angiogram did not show any coronary ischemia, she has preserved ejection fraction, grade 1 diastolic dysfunction, considering urgent nature of the surgery no further testing is required, I would recommend monitoring her in ICU after the surgery Acute on chronic normocytic anemia Not on anticoagulation anymore Hemoglobin dropped from 10.4-8.3 in 1 month Would avoid DVT prophylaxis I do not see any recent EGD colonoscopy report however Dr. Sapp has seen her in his office Protonix 40 IV twice daily Preserved ejection fraction heart failure Because of her sedentary lifestyle her lower extremity edema seems to be her baseline Her creatinine is also at baseline Close monitoring perioperatively after she receives fluids in the morning We will check BNP UTI without sepsis Last urine culture was positive for Klebsiella, sensitive to ceftriaxone Type 2 diabetes: Last A1c 6.9 She will be n.p.o. after midnight, avoid insulin at this point, I rather have her hyperglycemic to avoid hypoglycemic episodes during surgery Dementia Patient is not a good historian Considering his multiple comorbid conditions, and active surgery she is high risk for cardiac arrest, UT, respiratory failure Full code DVT prophylaxis SCDs Attestations Medical Necessity Statement*: Anticipating stay in the hospital cross more than 2 nights she carries a guarded prognosis, high risk for UT cardiac arrest and respiratory failure, need orthopedic evaluation in the ER Time Spent in Patient Care: 60mins, called custodial to get the report Coding Level of Care Code Acute Managing [employer] Diagnoses Closed right hip fracture S72.001A Normocytic anemia D64.9 GI bleed K92.2 UTI (urinary tract infection) N39.0 Fall W19.XXXA Encounter type: initial encounter
[2019-09-20 06:33] VITALS: BP 116/56; PULSE 66; RESP 18; TEMP 36.6; O2SAT 95
--- NOTE | 2019-09-20 06:44 | ANES.PREANE2 ---
Pre-Anesthetic Assessment Pre-Anesthetic Assessment: Height/Weight: Height 1.57 m Weight 83.007 kg Temp Pulse Resp BP Pulse Ox 97.9 F 66 18 116/56 95 09/20/19 06:33 09/20/19 06:33 09/20/19 06:33 09/20/19 06:33 09/20/19 06:33 Preop Diagnosis: Anemia Proposed Procedure: Operation Date: 09/20/19 07:00 Proposed Procedures p EGD [id number] K92.2(Not Applicable) - Luis A Sapp MD s Colonoscopy(Not Applicable) - Luis A Sapp MD Familial anesthetic complications: patient does not remember Last intake: Intake Last Liquid Date 09/19/19 Last Liquid Time 23:30 Last Solid Date 09/18/19 Last Solid Time 18:00 Social: Social History: Tobacco and No alcohol Exam: Pre-Anes Outpt Exam: alert, clear to auscultation bilaterally and regular rate & rhythm Additional Exam Findings (including area of procedure): patient is poor historian Airway: Submandibular: WNL Cervical ROM: WNL MP: 1 Dentition: False Pulmonary: Pulmonary: COPD, RPESTON and Sleep apnea Comments: O2 at night, recent respiratory failure requiring intubation 05/14 CV/HEM: CV/HEM: Anemia, CAD, CHF and HTN : : None reported Hepatic: Hepatic: None reported GI: GI: GERD Metabolic: Metabolic: DM and Thyroid Musc/skel: Musc/skel: OA/DJD and Weakness Neuropsych: Neuropsych: Deficit and Dementia Anesthetic Plan: ASA status: 3 Anesthesia: MAC Risk of > 500 ml blood loss (7ml/kg in children): No PFSH Anesthesia PFSH: Medical History (Updated 09/16/19 @ 15:10 by Constanza Rehman) Acute respiratory failure with hypoxia -Required intubation following CODE BLUE, extubated on 05/14 CAD (coronary artery disease) -NSTEMI and code blue during hospitalization in 04/2019 -has been following up with cardiology -Echo (04/2019): EF=64%, no RWMA, G1DD, mild MR, trace AR -had coronary angiogram (06/2019) showing normal coronaries -on statin, BB Congestive heart failure -no acute exacerbation currently -last Echo: EF=64%, no RWMA, G1DD, mild MR, trace AR COPD (chronic obstructive pulmonary disease) -follows up with Dr. Lane -no acute exacerbation, not oxygen dependent at baseline Dementia DVT (deep venous thrombosis) -previously found to have R basilic vein DVT -had been on AC with Eliquis, now discontinued; not a good candidate for further anticoagulation due to underlying anemia GI bleed Hypertension -VSS; continue to monitor Hypocalcemia -previously noted; corrected Ca-8.5 -PTH wnl Hypothyroidism -Hx of thyroid cancer s/p thyroidectomy with acquired hypothyroidism -continue levothyroxine Lymphedema Macrocytic anemia -has chronic macrocytic anemia; has evidence of vitamin B12 and folate deficiency -replacing vitamin B12, folate -also noted evidence of low iron Non-insulin dependent type 2 diabetes mellitus -A1c-5.5 -Acchucheks, hypoglycemia precautions, ISS Normocytic anemia -acute blood loss on chronic normocytic anemia; previously had macrocytic anemia secondary to vitamin B12 and folate deficiencies -plan for EGD and colonoscopy by Dr. Sapp; per my discussion with him, would like to wait at least 6-8 weeks post-op to allow for appropriate recovery -AC has been on hold; had previously been on Eliquis due to UE superficial DVT -s/p 4 units PRBCs due to acute drop in Hg (09/03 & 09/05); continue to closely monitor H/H. Hg increased to 9.4 today -baseline Hg appears to be around 11 -on PPI NSTEMI (non-ST elevated myocardial infarction) Surgical History H/O thyroidectomy History of ankle surgery S/P cholecystectomy Family History Other Breast cancer CAD (coronary artery disease) Diabetes Hypertension Social History Smoking and tobacco status: former smoker Quit status (tobacco): has quit using tobacco Former quit date comment: Smoked briefly in her teens. Alcohol intake: never Lives independently: Yes Household members: none Housing: Apartment Current occupational status: disabled History of recent travel: No Current gender identity: Female Data Anesthesia Cardiac Studies: No Data to Display
[2019-09-20] MEDS: sodium chloride 0.9% 1,000 ML 30 ML IV (06:56)
[2019-09-20 06:58] LABS: Glucose Point of Care 101 mg/dL (70-110)
--- NOTE | 2019-09-20 07:21 | W.PM.OPSUD ---
Surgery/Procedure H&P Update DATE OF PROCEDURE: September 20, 2019 DATE H&P PERFORMED: 08/30/19 H&P UPDATE INFORMATION: I have reviewed H&P completed within last 30 days, I have examined patient prior to procedure and No changes to prior documentation PREOP DIAGNOSIS: Anemia PLANNED PROCEDURE: Operation Date: 09/20/19 07:00 Proposed Procedures p EGD [id number] K92.2(Not Applicable) - Luis A Sapp MD s Colonoscopy(Not Applicable) - Luis A Sapp MD
[2019-09-20 07:51] VITALS: BP 131/42; PULSE 71; RESP 18; TEMP 36.2; O2SAT 99
[2019-09-20 08:02] VITALS: BP 108/86; PULSE 68; RESP 18; O2SAT 96
--- NOTE | 2019-09-20 08:07 | ANE.PACU2 ---
Inpatient post-anesthesia follow up: Airway intact: Yes Vital signs: Temperature 97.2 F Pulse Rate 68 Respiratory Rate 18 Blood Pressure 108/86 Pulse Oximetry 96 Oxygen Delivery Me thod Room Air Oxygen Flow Rate Fraction of Inspir ed Oxygen Hydration adequate: Yes Nausea and vomiting: No Pain level: 1 Mental status: Baseline
[2019-09-20] MEDS: HYDROcodone-acetaminophen 5-325 mg Tablet 1 TAB PO ×2 (08:13)
== END 2019-09-20 08:30 | disposition home or self-care (01) ==
PROVIDERS: PCP Family Medicine; Visit Provider Surgery
PROC: 0DJ08ZZ Inspection of Upper Intestinal Tract, Via Natural or Artificial Opening Endoscopic (ICD-10-PCS; CPT 43235; principal; 2019-09-20 07:00)
PROC: 0DJD8ZZ Inspection of Lower Intestinal Tract, Via Natural or Artificial Opening Endoscopic (ICD-10-PCS; CPT 45378; 2019-09-20 07:00)
DX: D50.9 Iron deficiency anemia, unspecified (principal); K20.9 Esophagitis, unspecified; K29.70 Gastritis, unspecified, without bleeding; D12.3 Benign neoplasm of transverse colon; K57.30 Diverticulosis of large intestine without perforation or abscess without bleeding; J44.9 Chronic obstructive pulmonary disease, unspecified; G47.30 Sleep apnea, unspecified; Z99.81 Dependence on supplemental oxygen; I11.0 Hypertensive heart disease with heart failure; I50.9 Heart failure, unspecified; I25.10 Atherosclerotic heart disease of native coronary artery without angina pectoris; E11.9 Type 2 diabetes mellitus without complications; M19.90 Unspecified osteoarthritis, unspecified site; F03.90 Unspecified dementia, unspecified severity, without behavioral disturbance, psychotic disturbance, mood disturbance, and anxiety; Z86.718 Personal history of other venous thrombosis and embolism; E03.9 Hypothyroidism, unspecified; Z87.891 Personal history of nicotine dependence
CPT/HCPCS: 12345; 36416; 43235; 82962; G0121; J2001; J2704; J7030

== ENCOUNTER 2019-09-23 02:31 | Emergency (ER) | payer MEDICARE, MEDICAID, SELFPAY ==
[2019-09-23 02:31] VITALS: BMI 37.2
--- NOTE | 2019-09-23 02:36 | XR_ITS ---
WS: [id number] RIGHT HIP HISTORY: pain COMPARISON: 09/15/2019 and 09/04/2019 Right hip: Status post intramedullary siena and gamma nail placement for proximal RIGHT femur fracture. Comminuted fracture in the proximal femur with avulsion of the lesser trochanter. Fracture lines are still evident but remain in good alignment. No new fracture. No soft tissue abnormality. XR/XR hip RT 2-3V wo/w pel* [id number] IMPRESSION: 1. Status post ORIF proximal RIGHT femur fracture remains unchanged in alignme nt since 09/15/2019. 2. No new fracture.
[2019-09-23 02:37] VITALS: BP 97/57; PULSE 65; RESP 18; TEMP 36.6; O2SAT 99
--- NOTE | 2019-09-23 02:38 | W.ED.EXTPRO ---
HPI - Extremity Problem General: Chief complaint: Extremity Problem,Nontraumatic Stated complaint: HIP PAIN Time Seen by Provider: 09/23/19 02:37 Source: patient and EMS Mode of arrival: EMS Limitations: no limitations History of Present Illness: HPI Narrative: 74-year-old female who had hip surgery 3 weeks ago. Patient was discharged from custodial yesterday tonight was first night at home. Patient's family called EMS because they states she could not get comfortable and is having pain in her hip. Patient currently states her pain is a 3 out of 10. She denies any new injuries. She denies any fevers. MD Complaint: extremity pain Associated symptoms: Deny chest pain, fever(s) or rash Review of Systems Const: Denies: fever(s), chills, body aches or change in appetite Eyes: Denies: blurry vision or eye discomfort ENMT: Denies: throat pain or dental pain Card: Denies: chest pain Resp: Denies: dyspnea GI: Denies: abdominal pain, nausea, vomiting or diarrhea : Denies: dysuria Musc: Reports: joint pain Skin/Breast: Denies: rash Neuro: Denies: headache(s) Psych: Denies: depression Wai/Lymph: Denies: easy bruising All/Imm: Denies: urticaria PFSH ED PFSH: Medical History (Updated 09/23/19 @ 03:48 by Emilie Simms MD) Acute respiratory failure with hypoxia -Required intubation following CODE BLUE, extubated on 05/14 CAD (coronary artery disease) -NSTEMI and code blue during hospitalization in 04/2019 -has been following up with cardiology -Echo (04/2019): EF=64%, no RWMA, G1DD, mild MR, trace AR -had coronary angiogram (06/2019) showing normal coronaries -on statin, BB Congestive heart failure -no acute exacerbation currently -last Echo: EF=64%, no RWMA, G1DD, mild MR, trace AR COPD (chronic obstructive pulmonary disease) -follows up with Dr. Lane -no acute exacerbation, not oxygen dependent at baseline Dementia DVT (deep venous thrombosis) -previously found to have R basilic vein DVT -had been on AC with Eliquis, now discontinued; not a good candidate for further anticoagulation due to underlying anemia GI bleed Hypertension -VSS; continue to monitor Hypocalcemia -previously noted; corrected Ca-8.5 -PTH wnl Hypothyroidism -Hx of thyroid cancer s/p thyroidectomy with acquired hypothyroidism -continue levothyroxine Lymphedema Macrocytic anemia -has chronic macrocytic anemia; has evidence of vitamin B12 and folate deficiency -replacing vitamin B12, folate -also noted evidence of low iron Non-insulin dependent type 2 diabetes mellitus -A1c-5.5 -Acchucheks, hypoglycemia precautions, ISS Normocytic anemia -acute blood loss on chronic normocytic anemia; previously had macrocytic anemia secondary to vitamin B12 and folate deficiencies -plan for EGD and colonoscopy by Dr. Sapp; per my discussion with him, would like to wait at least 6-8 weeks post-op to allow for appropriate recovery -AC has been on hold; had previously been on Eliquis due to UE superficial DVT -s/p 4 units PRBCs due to acute drop in Hg (09/03 & 09/05); continue to closely monitor H/H. Hg increased to 9.4 today -baseline Hg appears to be around 11 -on PPI NSTEMI (non-ST elevated myocardial infarction) Surgical History (Updated 09/20/19 @ 07:54 by Luis A Sapp MD) H/O esophagogastroduodenoscopy (09/20/19) H/O thyroidectomy History of ankle surgery S/P cholecystectomy Status post colonoscopy with polypectomy (09/20/19) Family History Other Breast cancer CAD (coronary artery disease) Diabetes Hypertension Social History Smoking and tobacco status: former smoker Quit status (tobacco): has quit using tobacco Former quit date comment: Smoked briefly in her teens. Alcohol intake: never Lives independently: Yes Household members: none Housing: Apartment Current occupational status: disabled History of recent travel: No Current gender identity: Female Physical Exam Const: COMMON NORMALS: no acute distress, patient oriented x3 and healthy appearing HENMT: COMMON NORMALS: normocephalic and atraumatic HEAD & SCALP: normocephalic and atraumatic Eye: COMMON NORMALS: Equal, round and reactive pupils present and EOMs intact bilaterally PUPIL: Yes Equal, round and reactive pupils present Neck/C-Spine: COMMON NORMALS: full ROM and supple Chest: COMMONS NORMALS: normal inspection of the chest and normal palpation of entire chest wall Resp: COMMON NORMALS: normal respiratory effort, No retractions, No use of accessory muscles and clear to auscultation bilaterally AUSCULTATION: clear to auscultation bilaterally Cardio: COMMON NORMALS: regular rate, regular rhythm and No murmurs present (Cardio) RATE: regular rate RHYTHM: regular rhythm GI: COMMON NORMALS: Normal to inspection, nondistended, normoactive bowel sounds present, Soft to palpation, non-tender and no masses PALPATION: Yes Soft to palpation Extremity: COMMON NORMALS: normal to inspection and full ROM NARRATIVE EXTREMITY EXAM: Incision to right hip is clean dry and intact Neuro: COMMON NORMALS: patient oriented x3, moves all extremities and no focal motor deficits Psych: COMMON NORMALS: mental status grossly normal, Normal thought process present and cooperative THOUGHT PROCESS: Normal thought process present Skin: COMMON NORMALS: no rashes or lesions noted and no wounds GENERAL SKIN EXAM: no rashes or lesions noted Course Vital Signs: Vital signs: Vital Signs Temperature 97.9 F 09/23/19 02:37 Pulse Rate 60 09/23/19 04:21 Respiratory Rate 16 09/23/19 04:21 Blood Pressure 106/53 09/23/19 04:21 Pulse Oximetry 96 09/23/19 04:21 MDM - Extremity (Nontraumatic) MDM Narrative: Medical decision making narrative: Michelle presents with hip pain from her hip fracture and surgery. Patient has no signs of any acute findings or cellulitis. She is well-appearing here and is stable for discharge. She is to follow-up with her surgeon as scheduled and return if worsening. Lab Data: Labs: Lab Results 09/23/19 Range/Units 02:40 WBC 6.0 (4.0-10.0) 10^3/ uL RBC 3.44 L (4.1-5.3) 10^6/u L Hgb 9.7 L (11.5-15.3) g/dL Hct 32.3 L (37.0-47.0) % MCV 93.9 (81-99) fL MCH 28.2 (28.0-34.0) pg MCHC 30.0 (30.0-36.0) g/dL RDW 16.3 H (12.1-15.1) % Plt Count 356 (130-400) 10^3/c mm MPV 9.3 (7.4-10.4) fL Neut % (Auto) 79.4 % Lymph % (Auto) 10.2 % [place] % (Auto) 8.2 % Eos % (Auto) 0.8 % Baso % (Auto) 0.7 % Neut # (Auto) 4.8 (1.8-7.7) 10^3/u L Lymph # (Auto) 0.6 L (0.8-4.8) 10^3/u L [place] # (Auto) 0.5 (0.2-0.9) 10^3/u L Eos # (Auto) 0.1 (0.0-0.8) 10^3/u L Baso # (Auto) 0.0 (0.0-0.1) 10^3/u L Nucleated RBC % (a uto) 0 % Nucleated RBCs # 0.0 /100WBC Imaging Data^: xr r hip: Attestation: I personally reviewed and interpreted this imaging study as follows: My impression: No acute finding Discharge Plan Discharge Patient Disposition: Home, Self-Care Clinical Impression: Hip pain Condition: Stable Prescriptions: No Action potassium chloride 20 mEq tablet extended release 10 meq PO BID RF: 0 cyanocobalamin (vitamin B-12) [Vitamin B-12] 500 mcg tablet 1,000 mcg PO DAILY RF: 0 metoprolol tartrate 25 mg tablet 25 mg PO BID RF: 0 folic acid 1 mg tablet 1 mg PO DAILY RF: 0 albuterol sulfate 2.5 mg/0.5 mL solution for nebulization 2.5 mg INHALATION Q6H PRN (Reason: unknown) RF: 0 Anoro Ellipta 62.5-25 mcg/actuation blister with device 1 inh INHALATION DAILY RF: 0 albuterol sulfate [Ventolin HFA] 90 mcg/actuation HFA aerosol inhaler 2 puff INHALATION Q6H PRN (Reason: Shortness Of Breath) RF: 0 magnesium oxide 400 mg magnesium capsule 400 mg PO BID Qty: 60 RF: 0 levothyroxine 175 mcg Tablet 175 mcg PO DAILY 30 Days Qty: 30 RF: 0 nitroglycerin 0.4 mg tablet, sublingual 0.4 mg SUBLINGUAL Q5M PRN (Reason: Chest Pain) RF: 0 calcium carbonate 600 mg calcium (1,500 mg) Tablet 600 mg PO BID RF: 0 fenofibrate nanocrystallized 48 mg Tablet 48 mg PO DAILY RF: 0 nystatin 100,000 unit/gram Cream See Rx Instructions .ROUTE .COMPLEX RF: 0 Culturelle 15 billion cell Capsule, Sprinkle 1 cap PO DAILY RF: 0 furosemide 20 mg tablet 20 mg PO DAILY Qty: 30 RF: 0 hydrocodone-acetaminophen 5-325 mg Tablet 1 - 2 tab PO Q6H PRN (Reason: Breakthrough Pain) Qty: 30 RF: 0 acetaminophen [Tylenol] 325 mg Tablet 650 mg PO Q6H PRN (Reason: Pain, Mild) Qty: 0 RF: 0 Myrbetriq 25 mg tablet extended release 24 hr 25 mg PO DAILY RF: 0 polyethylene glycol 3350 [Miralax] 17 gram/dose Powder 17 g PO DAILY PRN (Reason: Constipation) RF: 0 atorvastatin 40 mg Tablet 40 mg PO BEDTIME Qty: 30 RF: 0 ferrous sulfate 325 mg (65 mg iron) Tablet,Delayed Release (Dr/Ec) 325 mg PO BIDWM Qty: 60 RF: 0 Januvia 100 mg tablet 100 mg PO DAILY RF: 0 omeprazole 40 mg capsule,delayed release(DR/EC) 40 mg PO BIDWM Qty: 0 RF: 0 Discharge Orders: Discharge Order (Routine); Ordered 09/23/19 Ordered By: Emilie Simms Referrals: Viktor Baker MD [Primary Care Provider] - Discharge Diet: Advance as tolerated Discharge Activity: Resume usual activity Patient Instructions: Arthralgia (ED) Discharge Date/Time: 09/23/19 04:35 Coding Level of Care Code ED Medical Record Retrieval Specialist for Chg Fwd Exam Comprehensive
[2019-09-23 02:45] VITALS: RESP 16; O2SAT 96
[2019-09-23] MEDS: morphine 4 mg/mL SDV 1 mL IM (02:45)
[2019-09-23 02:48] LABS: Basophils % 0.7 %; Eosinophils # 0.1 10^3/uL (0.0-0.8); Eosinophils % 0.8 %; Hematocrit 32.3 % (37.0-47.0); Hemoglobin 9.7 g/dL (11.5-15.3); Lymphocytes # 0.6 10^3/uL (0.8-4.8); Lymphocytes % 10.2 %; Mean Corpuscular Hemoglobin 28.2 pg (28.0-34.0); Mean Corpuscular Volume 93.9 fL (81-99); Mean Platelet Volume 9.3 fL (7.4-10.4); Monocytes # 0.5 10^3/uL (0.2-0.9); Monocytes % 8.2 %; Neutrophils # 4.8 10^3/uL (1.8-7.7); Neutrophils % 79.4 %; Nucleated Red Blood Cells % 0 %; Platelet Count 356 10^3/cmm (130-400); Red Blood Count 3.44 10^6/uL (4.1-5.3); Red Cell Distribution Width 16.3 % (12.1-15.1)
[2019-09-23 04:21] VITALS: BP 106/53; PULSE 60; RESP 16; O2SAT 96
== END 2019-09-23 04:35 | disposition home or self-care (01) ==
PROVIDERS: Emergency Provider Emergency Medicine; PCP Family Medicine
DX: M25.551 Pain in right hip (principal); I25.10 Atherosclerotic heart disease of native coronary artery without angina pectoris; I11.0 Hypertensive heart disease with heart failure; I50.9 Heart failure, unspecified; J44.9 Chronic obstructive pulmonary disease, unspecified; F03.90 Unspecified dementia, unspecified severity, without behavioral disturbance, psychotic disturbance, mood disturbance, and anxiety; E11.9 Type 2 diabetes mellitus without complications; I25.2 Old myocardial infarction; Z87.891 Personal history of nicotine dependence; Z98.890 Other specified postprocedural states
CPT/HCPCS: 12345; 73502; 85025; 96372; 99281; 99283; J2270

== ENCOUNTER 2019-10-18 14:44 | Emergency (ER) | payer MEDICARE, MEDICAID, SELFPAY ==
[2019-10-18 14:45] VITALS: BP 123/62; PULSE 69; RESP 16; TEMP 37.1; O2SAT 98; BMI 37.2
--- NOTE | 2019-10-18 15:10 | XRR_ITS ---
PROCEDURE INFORMATION: Exam: XR Right Foot Complete Exam date and time: 10/18/2019 3:46 PM Age: 74 years old Clinical indication: Edema; Yes, it is localized; Patient HX: C/O bilat feet swelling--pain-bruising. Short of breath; Additional info: Pain bruising TECHNIQUE: Imaging protocol: XR Right foot. Views: 3 or more views. COMPARISON: No relevant prior studies available. FINDINGS: Bones/joints: Negative for acute fracture or focal bony abnormality. A bone spurs present on the inferior calcaneus. Soft tissues: Diffuse soft tissue edema is seen in the dorsal aspect of the foot. XR/XR foot RT min 3V* [id number] IMPRESSION: No acute bone abnormality. Soft tissue edema dorsal foot. Bone spur inferior calcaneus
--- NOTE | 2019-10-18 15:10 | XRR_ITS ---
PROCEDURE INFORMATION: Exam: XR Left Foot Complete Exam date and time: 10/18/2019 3:42 PM Age: 74 years old Clinical indication: Edema; Yes, it is localized; Patient HX: Swollen feet, pain, brusing. Short of breath; Additional info: Pain bruising TECHNIQUE: Imaging protocol: XR Left foot. Views: 3 or more views. COMPARISON: No relevant prior studies available. FINDINGS: Bones/joints: There is a transverse mildly displaced fracture midshaft proximal phalange of the 5th toe. No additional acute bony abnormalities seen in the remainder of the foot Soft tissues: Diffuse soft tissue edema is seen in the dorsal foot and in the 5th toe. XR/XR foot LT min 3V* [id number] IMPRESSION: 1. Transverse displaced fracture proximal phalange of the 5th toe. 2. Otherwise negative for additional acute bony abnormalities. 3. Diffuse soft tissue edema dorsal foot and 5th toe
--- NOTE | 2019-10-18 15:10 | ECG_ITS ---
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 Measurements Intervals [place] Rate: 62 P: [place]: -1 QRS: 2 QRSD: 92 T: 66 QT: 395 QTc: 403 Interpretive Statements SINUS RHYTHM WITH significant baseline artifact MODERATE ST DEPRESSION [0.05+ mV ST DEPRESSION] Compared to ECG 09/03/2019 17:20:35 ST (T wave) deviation now present Electronically Signed On 10-18-2019 16:27:47 CDT by Adeel Barrios M.D. [id number]
--- NOTE | 2019-10-18 15:10 | XRR_ITS ---
PROCEDURE INFORMATION: Exam: XR Chest, 1 View Exam date and time: 10/18/2019 3:50 PM Age: 74 years old Clinical indication: Cough and dyspnea; Patient HX: Bilat feet swelling; Pain; Bruising. Short of breath. Dyspnea/cough TECHNIQUE: Imaging protocol: XR of the chest Views: 1 view. COMPARISON: CR XR chest 2V* [id number] 09/26/2019 3:33 PM FINDINGS: Lungs: Unremarkable. No consolidation. Pleural space: Unremarkable. No pleural effusion. No pneumothorax. Heart/Mediastinum: Unremarkable. No cardiomegaly. Bones/joints: Unremarkable. XR/XR chest 1V portable [id number] IMPRESSION: No acute findings.
[2019-10-18 15:18] LABS: Basophils % 0.2 %; Eosinophils # 0.1 10^3/uL (0.0-0.8); Hematocrit 30.1 % (37.0-47.0); Hemoglobin 9.6 g/dL (11.5-15.3); Lymphocytes # 0.6 10^3/uL (0.8-4.8); Lymphocytes % 6.7 %; Mean Corpuscular HGB Conc 31.9 g/dL (30.0-36.0); Mean Corpuscular Hemoglobin 27.9 pg (28.0-34.0); Mean Corpuscular Volume 87.5 fL (81-99); Mean Platelet Volume 9.1 fL (7.4-10.4); Monocytes # 0.4 10^3/uL (0.2-0.9); Monocytes % 3.8 %; Neutrophils # 8.13 10^3/uL (1.8-7.7); Neutrophils % 87.9 %; Nucleated Red Blood Cells % 0 %; Platelet Count 368 10^3/cmm (130-400); Red Blood Count 3.44 10^6/uL (4.1-5.3); Red Cell Distribution Width 14.8 % (12.1-15.1); White Blood Count 9.3 10^3/uL (4.0-10.0)
--- NOTE | 2019-10-18 15:19 | USCV_ITS ---
Michelle Becerra Age: 74 Gender: F : 1945 Exam Date: 10/18/2019 16:20 Ordering Phys: Ramsey Jansen DO Technologist: NEISHA BRO Exam Location: [facility] [place]_ Indication: LEG SWELLING PROCEDURES: Venous duplex imaging was performed in bilateral lower extremities. The following venous structures were evaluated: common femoral vein, profunda vein, proximal portion of the greater saphenous vein, superficial femoral vein, and the popliteal vein. In addition, the posterior tibial and peroneal trunk were evaluated. Serial compression, augmentation maneuvers, and spectral Doppler flow evaluation were performed. FINDINGS: Normal 2-D Doppler and augmentation and compressibility throughout the lower extremity venous structures. Additional imaging through the proximal calf veins also reveals no thrombus. Limited evaluation of the greater saphenous vein is patent with no thrombus. CONCLUSIONS No DVT bilateral lower extremities. Dr. Mel Barragan DO (Electronically Signed) Final Date: 19 October 2019 07:43 S
--- NOTE | 2019-10-18 15:20 | ED_ITS ---
HPI - Extremity Problem General: Chief complaint: Extremity Injury, Lower Stated complaint: EXCESSIVE EDEMA Time Seen by Provider: 10/18/19 14:46 History of Present Illness: HPI Narrative: 74-year-old female presents the emergency room with complaints of leg swelling. She was moved from the intermediate to her [place] apartment, she was getting rehab at the nursing for her right hip arthroplasty. She is unable to really tell me anything specific she said at one time she was short of breath but she is not short of breath now. She tells me to ask her daughter what is wrong with her she cannot tell me anything specific of what is bothering her she does have some mild discomfort on her left foot where she has a red erythematous patch is mildly tender to the touch and some bruising of the fourth and fifth toe she also has bruising of the right fourth toe. She denies any chest pain denies any nausea vomiting or diarrhea denies any prolonged dyspnea. Chief complaint in the nursing note was extremity swelling on I talked to the nurse it is bilateral and it was reported by her home health nurse. Patient states her legs have been like this for some time. MD Complaint: extremity swelling Onset (ago): month(s) Pain Consistency: constant Location: left, right and lower extremity Quality: other (No pain in the extremities) Radiation: none Exacerbating factors: nothing Associated symptoms: Deny arthralgias, chest pain, fever(s), myalgias, rash, short of breath or other Context: recent surgery/procedure (Right hip arthroplasty 7 weeks ago) Review of Systems Const: Denies: fever(s) ENMT: Denies: throat pain, ear or mastoid pain, nasal discharge or nasal congestion Card: Denies: chest pain Resp: Denies: dyspnea, productive cough or non-productive cough GI: Denies: abdominal pain, nausea, vomiting, hematemesis, coffee ground emesis, diarrhea, constipation, bloating, hematochezia or melena : Denies: flank pain, difficulty voiding, dysuria, urinary frequency or urinary urgency Skin/Breast: Denies: rash PFSH ED PFSH: Medical History Acute respiratory failure with hypoxia -Required intubation following CODE BLUE, extubated on 05/14 CAD (coronary artery disease) -NSTEMI and code blue during hospitalization in 04/2019 -has been following up with cardiology -Echo (04/2019): EF=64%, no RWMA, G1DD, mild MR, trace AR -had coronary angiogram (06/2019) showing normal coronaries -on statin, BB Congestive heart failure -no acute exacerbation currently -last Echo: EF=64%, no RWMA, G1DD, mild MR, trace AR COPD (chronic obstructive pulmonary disease) -follows up with Dr. Lane -no acute exacerbation, not oxygen dependent at baseline Dementia DVT (deep venous thrombosis) -previously found to have R basilic vein DVT -had been on AC with Eliquis, now discontinued; not a good candidate for further anticoagulation due to underlying anemia GI bleed Hypertension -VSS; continue to monitor Hypocalcemia -previously noted; corrected Ca-8.5 -PTH wnl Hypothyroidism -Hx of thyroid cancer s/p thyroidectomy with acquired hypothyroidism -continue levothyroxine Lymphedema Macrocytic anemia -has chronic macrocytic anemia; has evidence of vitamin B12 and folate de ficiency -replacing vitamin B12, folate -also noted evidence of low iron Non-insulin dependent type 2 diabetes mellitus -A1c-5.5 -[place]chucheks, hypoglycemia precautions, ISS Normocytic anemia -acute blood loss on chronic normocytic anemia; previously had macrocytic anemia secondary to vitamin B12 and folate deficiencies -plan for EGD and colonoscopy by Dr. Sapp; per my discussion with him, w ould like to wait at least 6-8 weeks post-op to allow for appropriate recovery -AC has been on hold; had previously been on Eliquis due to UE superficial DVT -s/p 4 units PRBCs due to acute drop in Hg (09/03 & 09/05); continue to closely monitor H/H. Hg increased to 9.4 today -baseline Hg appears to be around 11 -on PPI NSTEMI (non-ST elevated myocardial infarction) Surgical History H/O esophagogastroduodenoscopy (09/20/19) H/O thyroidectomy History of ankle surgery S/P cholecystectomy Status post colonoscopy with polypectomy (09/20/19) Family History Other Breast cancer CAD (coronary artery disease) Diabetes Hypertension Social History Smoking and tobacco status: former smoker Quit status (tobacco): has quit using tobacco Former quit date comment: Smoked briefly in her teens. Alcohol intake: never Lives independently: Yes Household members: none Housing: Apartment Current occupational status: disabled History of recent travel: No Current gender identity: Female Physical Exam Const: COMMON NORMALS: no acute distress GENERAL APPEARANCE: cooperative and comfortable ORIENTATION/CONSCIOUSNESS: Yes awake, Yes oriented to person, Yes oriented to place and Yes oriented to time HENMT: COMMON NORMALS: normocephalic and atraumatic HEAD & SCALP: normocephalic and atraumatic Eye: COMMON NORMALS: Equal, round and reactive pupils present, EOMs intact bi laterally, conjunctivae normal and no scleral icterus CONJUNCTIVA: Yes conjunctivae normal PUPIL: Yes Equal, round and reactive pupils present Neck/C-Spine: COMMON NORMALS: full ROM, no lymphadenopathy, supple and no JVD Lymph: LYMPHATIC: no lymphadenopathy noted and no lymphedema noted Resp: COMMON NORMALS: normal respiratory effort, No retractions, No use of accessory muscles and clear to auscultation bilaterally AUSCULTATION: clear to auscultation bilaterally Cardio: COMMON NORMALS: no JVD, regular rate, regular rhythm and No murmurs present (Cardio) RATE: regular rate RHYTHM: regular rhythm GI: COMMON NORMALS: Soft to palpation and No hepatosplenomegaly present AUSCULTATION: Yes normoactive bowel sounds PALPATION: Yes Soft to palpation, No Tenderness to palpation present (GI), No Guarding due to palpation present (GI) and Yes No hepatosplenomegaly present Extremity: NARRATIVE EXTREMITY EXAM: On the dorsum of the left foot there is a small reddened area but there is no focal infection there is no fluctuant area there is no abscess noted. There is bruising in the right fourth toe proximally and a little bit of vague bruising over the left fourth and fifth MP joints no deformities. Bilaterally there is lower leg generalized swelling no pitting edema negative: Homans sign bilaterally Neuro: SENSORIUM/ORIENTATION: Yes oriented to person, Yes oriented to place and Yes oriented to time Skin: COMMON NORMALS: no rashes or lesions noted GENERAL SKIN EXAM: no rashes or lesions noted Course Vital Signs: Vital signs: Vital Signs Temperature 98.7 F 07/21/20 14:45 Pulse Rate 67 10/18/19 20:19 Respiratory Rate 22 H 10/18/19 20:19 Blood Pressure 120/65 10/18/19 20:19 Pulse Oximetry 99 10/18/19 20:19 MDM - Extremity (Nontraumatic) MDM Narrative: Medical decision making narrative: Patient is a fracture on the left foot the fifth toe will put her in a postop shoe. Venous duplex was negative. There is a small area of erythema on the dorsum of the left foot. There is also some localized ecchymosis in the same area suspect related to the fracture. There is some ecchymosis on the right foot as well but there are no fractures noted there. Will call in some clindamycin 300 mg 3 times daily for 7 days. She should follow-up with a recheck of her sodium with her primary care doctor in 3 to 5 days. Lab Data: Labs: Lab Results 10/18/19 10/18/19 Range/Units 14:30 14:30 WBC 9.3 (4.0-10.0) 10^3/ uL RBC 3.44 L (4.1-5.3) 10^6/u L Hgb 9.6 L (11.5-15.3) g/dL Hct 30.1 L (37.0-47.0) % MCV 87.5 (81-99) fL MCH 27.9 L (28.0-34.0) pg MCHC 31.9 (30.0-36.0) g/dL RDW 14.8 (12.1-15.1) % Plt Count 368 (130-400) 10^3/c mm MPV 9.1 (7.4-10.4) fL Neut % (Auto) 87.9 % Lymph % (Auto) 6.7 % Bennett % (Auto) 3.8 % Eos % (Auto) 1.0 % Baso % (Auto) 0.2 % Neut # (Auto) 8.13 H (1.8-7.7) 10^3/u L Lymph # (Auto) 0.6 L (0.8-4.8) 10^3/u L Bennett # (Auto) 0.4 (0.2-0.9) 10^3/u L Eos # (Auto) 0.1 (0.0-0.8) 10^3/u L Baso # (Auto) 0.0 (0.0-0.1) 10^3/u L Nucleated RBC % (a uto) 0 % Nucleated RBCs # 0.0 /100WBC Sodium 125 L (136-145) mmol/L Potassium 4.1 (3.5-5.1) mmol/L Chloride 90 L (98-107) mmol/L Carbon Dioxide 26 (22-29) mmol/L Anion Gap 13.1 (5-19) BUN 9 (8-23) mg/dL Creatinine 1.0 H (0.5-0.9) mg/dL Glucose 114 (65-115) mg/dL Calculated Osmolal ity 257 L (285-295) mOsm/k g Calcium 8.1 L (8.5-10.5) mg/dL Total Bilirubin 0.3 (0.15-1.2) mg/dL AST 27 (0-32) U/L ALT 14 (0-33) U/L Alkaline Phosphata se 133 H (35-105) IU/L Total Protein 6.5 L (6.6-8.7) g/dL Albumin 3.5 (3.5-5.2) g/dL Globulin 3.0 (1.3-4.6) g/dL Discharge Plan Discharge Patient Disposition: Home, Self-Care Clinical Impression: Fracture of toe of left foot, Leg edema, Hyponatremia, Cellulitis Condition: Stable Prescriptions: New clindamycin HCl 300 mg capsule 300 mg PO Q8H 7 Days Qty: 21 RF: 0 No Action potassium chloride 20 mEq tablet extended release 10 meq PO BID RF: 0 cyanocobalamin (vitamin B-12) [Vitamin B-12] 500 mcg tablet 1,000 mcg PO DAILY RF: 0 metoprolol tartrate 25 mg tablet 25 mg PO BID RF: 0 folic acid 1 mg tablet 1 mg PO DAILY RF: 0 albuterol sulfate 2.5 mg/0.5 mL solution for nebulization 2.5 mg INHALATION Q6H PRN (Reason: unknown) RF: 0 Anoro Ellipta 62.5-25 mcg/actuation blister with device 1 inh INHALATION DAILY RF: 0 albuterol sulfate [Ventolin HFA] 90 mcg/actuation HFA aerosol inhaler 2 puff INHALATION Q6H PRN (Reason: Shortness Of Breath) RF: 0 magnesium oxide 400 mg magnesium capsule 400 mg PO BID Qty: 60 RF: 0 levothyroxine 175 mcg Tablet 175 mcg PO DAILY 30 Days Qty: 30 RF: 0 nitroglycerin 0.4 mg tablet, sublingual 0.4 mg SUBLINGUAL Q5M PRN (Reason: Chest Pain) RF: 0 calcium carbonate 600 mg calcium (1,500 mg) Tablet 600 mg PO BID RF: 0 fenofibrate nanocrystallized 48 mg Tablet 48 mg PO DAILY RF: 0 nystatin 100,000 unit/gram Cream See Rx Instructions .ROUTE .COMPLEX RF: 0 Culturelle 15 billion cell Capsule, Sprinkle 1 cap PO DAILY RF: 0 furosemide 20 mg tablet 20 mg PO DAILY Qty: 30 RF: 0 hydrocodone-acetaminophen 5-325 mg Tablet 1 - 2 tab PO Q6H PRN (Reason: Breakthrough Pain) Qty: 30 RF: 0 acetaminophen [Tylenol] 325 mg Tablet 650 mg PO Q6H PRN (Reason: Pain, Mild) Qty: 0 RF: 0 Myrbetriq 25 mg tablet extended release 24 hr 25 mg PO DAILY RF: 0 polyethylene glycol 3350 [Miralax] 17 gram/dose Powder 17 g PO DAILY PRN (Reason: Constipation) RF: 0 atorvastatin 40 mg Tablet 40 mg PO BEDTIME Qty: 30 RF: 0 ferrous sulfate 325 mg (65 mg iron) Tablet,Delayed Release (Dr/Ec) 325 mg PO BIDWM Qty: 60 RF: 0 Januvia 100 mg tablet 50 mg PO DAILY RF: 0 omeprazole 40 mg capsule,delayed release(DR/EC) 40 mg PO BIDWM Qty: 0 RF: 0 sertraline 100 mg Tablet 100 mg PO DAILY RF: 0 levothyroxine 25 mcg Tablet 12.5 mcg PO DAILY RF: 0 Eliquis 5 mg Tablet 5 mg PO BID RF: 0 Discharge Orders: Discharge Order (Routine); Ordered 10/18/19 Ordered By: Ramsey Jansen Referrals: Viktor Baker MD [Primary Care Provider] - Discharge Diet: Usual diet Discharge Activity: Resume usual activity Activity Restrictions/Additional Instructions: Wear postop shoeUntil released by primary care doctor. Interventions: ED Discharge Assessment Last Done: 10/18/19 20:19 ED Charges Last Done: 10/18/19 20:19 Discharge Date/Time: 10/18/19 20:20 Coding Level of Care Code ED Director Of [employer] for [employer]g Fwd Exam Comprehensive
[2019-10-18 15:30] VITALS: BP 108/58; PULSE 65; RESP 14; O2SAT 97
[2019-10-18 15:59] LABS: Alanine Aminotransferase 14 U/L (0-33); Albumin Level 3.5 g/dL (3.5-5.2); Alkaline Phosphatase 133 IU/L (35-105); Anion Gap 13.1 (5-19); Aspartate Amino Transferase 27 U/L (0-32); Blood Urea Nitrogen 9 mg/dL (8-23); Calcium 8.1 mg/dL (8.5-10.5); Carbon Dioxide 26 mmol/L (22-29); Chloride 90 mmol/L (98-107); Creatinine Clr Calc Pharmacy 53.3635; Glucose 114 mg/dL (65-115); Osmolality Calculated 257 mOsm/kg (285-295); Potassium 4.1 mmol/L (3.5-5.1); Sodium 125 mmol/L (136-145); Total Bilirubin 0.3 mg/dL (0.15-1.2); Total Protein 6.5 g/dL (6.6-8.7)
[2019-10-18 16:00] VITALS: BP 112/62; PULSE 64; O2SAT 95
[2019-10-18 17:00] VITALS: BP 105/53; PULSE 68; RESP 22; O2SAT 97
[2019-10-18 17:57] VITALS: BP 114/54; PULSE 69; RESP 24; O2SAT 100
--- NOTE | 2019-10-18 18:01 | PC.NURSE ---
POST OP SHOE APPLIED TO PT PER DR. JEREMI VALDES. PT [facility]'S INTACT AFTER PLACED.
--- NOTE | 2019-10-18 19:28 | PC.NURSE ---
ARISTIDES GARZA SPOKE WITH CLAIRE ABOUT TRANSFER BACK TO HER RESIDENCE.
--- NOTE | 2019-10-18 19:56 | PC.NURSE ---
PC TO NIRALI DAUGHTER TO INFORM HER THAT A R[facility] HAD BEEN REQUESTED.
--- NOTE | 2019-10-18 20:18 | PC.NURSE ---
PC TO NIRALI DAUGHTER INFORMED HER THAT HER MOTHER IS BEING TAKEN HOME VIA AMBULANCE AND GAVE HER PT DC INSTRUCTIONS.
[2019-10-18 20:19] VITALS: BP 120/65; PULSE 67; RESP 22; O2SAT 99
== END 2019-10-18 20:20 | disposition home or self-care (01) ==
PROVIDERS: Emergency Provider Family Medicine; PCP Family Medicine
DX: R60.9 Edema, unspecified (principal); E87.1 Hypo-osmolality and hyponatremia; L03.90 Cellulitis, unspecified; S92.512A Displaced fracture of proximal phalanx of left lesser toe(s), initial encounter for closed fracture; X58.XXXA Exposure to other specified factors, initial encounter; Z79.01 Long term (current) use of anticoagulants; Z87.891 Personal history of nicotine dependence; I25.10 Atherosclerotic heart disease of native coronary artery without angina pectoris; I11.0 Hypertensive heart disease with heart failure; I50.9 Heart failure, unspecified; J44.9 Chronic obstructive pulmonary disease, unspecified; F03.90 Unspecified dementia, unspecified severity, without behavioral disturbance, psychotic disturbance, mood disturbance, and anxiety; E11.9 Type 2 diabetes mellitus without complications; I25.2 Old myocardial infarction; M79.89 Other specified soft tissue disorders
CPT/HCPCS: 12345; 71045; 73630; 80053; 85025; 93005; 93970; 99283; 99284

== ENCOUNTER → 2019-10-25 09:51 | Outpatient (BNVA) | payer MEDICARE, SELFPAY | PROVIDERS: PCP Family Medicine; Visit Provider Orthopaedic Surgery | DX: S72.24XD Nondisplaced subtrochanteric fracture of right femur, subsequent encounter for closed fracture with routine healing (principal); W18.39XD Other fall on same level, subsequent encounter; Z47.89 Encounter for other orthopedic aftercare | CPT/HCPCS: 73502 ==

== ENCOUNTER 2022-03-01 22:35 | Emergency (ER) | payer MEDICARE, MEDICAID, SELFPAY ==
[2022-03-01 22:39] VITALS: BP 126/63; PULSE 68; RESP 27; TEMP 36.9; O2SAT 94; BMI 34.5
[2022-03-01 22:44] VITALS: BP 107/50; PULSE 68; RESP 28; TEMP 36.9; O2SAT 94
--- NOTE | 2022-03-01 22:46 | ECG_ITS ---
[facility] Test Date: 2022-03-01 Pat Name: Michelle Becerra Department: Room: Gender: Female Upper Shaper: : 1945 Requested By: Juwan Webster Order Number: [id number] Deb MD: Len Quesada M.D. Measurements Intervals [place] Rate: 66 P: 83 HI: 171 QRS: -6 QRSD: 94 T: 74 QT: 424 QTc: 447 Interpretive Statements SINUS RHYTHM Compared to ECG 10/18/2019 15:30:14 ST (T wave) deviation no longer present Electronically Signed On 03-02-2022 19:45:26 CUSTODIAL OFFICER by Len Quesada M.D. [email or web address]
--- NOTE | 2022-03-01 23:10 | XRR_ITS ---
PROCEDURE INFORMATION: Exam: XR Chest Exam date and time: 03/01/2022 11:31 PM Age: 77 years old Clinical indication: Shortness of breath; Additional info: SOB TECHNIQUE: Imaging protocol: Radiologic exam of the chest. Views: 1 view. COMPARISON: CR XR chest 1V portable [id number] 10/18/2019 3:38 PM FINDINGS: Lungs: Reticular changes of interstitium. No consolidation. Pleural spaces: Unremarkable. No pleural effusion. No pneumothorax. Heart/Mediastinum: Mild cardiomegaly. Bones/joints: Unremarkable. XR/XR chest 1V portable [id number] IMPRESSION: No acute pathology.
--- NOTE | 2022-03-01 23:29 | W.ED.SOB ---
HPI - SOB/Dyspnea General: Chief Complaint: Shortness of Breath/Dyspnea Stated Complaint: SOB Time Seen by Provider: 03/01/22 22:40 History of Present Illness: HPI Narrative: 77-year-old female complains of shortness of breath. She presents from a skilled nursing. She notes a cough without much sputum production. No fever. Evidently in the skilled nursing, she was hypoxic requiring oxygen. Oxygen was removed on her arrival here, and sats immediately sank to 86%. MD elicited complaint: shortness of breath Pertinent past history: COPD and congestive heart failure Onset (ago): day(s) Context: other Timing: constant and progressively worsening Severity: moderate Exacerbating factors: lying flat and exertion Relieving factors: oxygen Associated symptoms: Reports chest congestion and cough; Deny abdominal pain, chest pain, diaphoresis, extremity pain, fever(s), nausea, palpitations or vomiting Treatment prior to arrival: oxygen and bronchodilator Review of Systems Const: Denies: fever(s) or diaphoresis ENMT: Denies: throat pain Card: Denies: chest pain or palpitations Resp: Reports: dyspnea, non-productive cough and chest congestion GI: Denies: abdominal pain, nausea or vomiting Musc: Denies: extremity pain PFSH ED PFSH: Medical History (Updated 03/02/22 @ 02:32 by Juwan Garcia DO) Acute respiratory failure with hypoxia -Required intubation following CODE BLUE, extubated on 05/14 CAD (coronary artery disease) -NSTEMI and code blue during hospitalization in 04/2019 -has been following up with cardiology -Echo (04/2019): EF=64%, no RWMA, G1DD, mild MR, trace AR -had coronary angiogram (06/2019) showing normal coronaries -on statin, BB Congestive heart failure -no acute exacerbation currently -last Echo: EF=64%, no RWMA, G1DD, mild MR, trace AR COPD (chronic obstructive pulmonary disease) -follows up with Dr. Lane -no acute exacerbation, not oxygen dependent at baseline Dementia DVT (deep venous thrombosis) -previously found to have R basilic vein DVT -had been on AC with Eliquis, now discontinued; not a good candidate for further anticoagulation due to underlying anemia GI bleed Hypertension -VSS; continue to monitor Hypocalcemia -previously noted; corrected Ca-8.5 -PTH wnl Hypothyroidism -Hx of thyroid cancer s/p thyroidectomy with acquired hypothyroidism -continue levothyroxine Lymphedema Macrocytic anemia -has chronic macrocytic anemia; has evidence of vitamin B12 and folate deficiency -replacing vitamin B12, folate -also noted evidence of low iron Non-insulin dependent type 2 diabetes mellitus -A1c-5.5 -Acchucheks, hypoglycemia precautions, ISS Normocytic anemia -acute blood loss on chronic normocytic anemia; previously had macrocytic anemia secondary to vitamin B12 and folate deficiencies -plan for EGD and colonoscopy by Dr. Sapp; per my discussion with him, would like to wait at least 6-8 weeks post-op to allow for appropriate recovery -AC has been on hold; had previously been on Eliquis due to UE superficial DVT -s/p 4 units PRBCs due to acute drop in Hg (09/03 & 09/05); continue to closely monitor H/H. Hg increased to 9.4 today -baseline Hg appears to be around 11 -on PPI NSTEMI (non-ST elevated myocardial infarction) Surgical History H/O esophagogastroduodenoscopy (09/20/19) H/O thyroidectomy History of ankle surgery S/P cholecystectomy Status post colonoscopy with polypectomy (09/20/19) Family History Other Breast cancer CAD (coronary artery disease) Diabetes Hypertension Social History Smoking and tobacco status: former smoker Quit status (tobacco): has quit using tobacco Former quit date comment: Smoked briefly in her teens. Alcohol intake: never Lives independently: Yes Household members: none Housing: Apartment Current occupational status: disabled History of recent travel: No Current gender identity: Female Physical Exam Const: COMMON NORMALS: no acute distress GENERAL APPEARANCE: cooperative, ill appearing and frail appearing HENMT: COMMON NORMALS: normocephalic and Normal external nose present HEAD & SCALP: normocephalic FACE & SINUS: normal facial exam NOSE: Normal external nose present Eye: COMMON NORMALS: Equal, round and reactive pupils present and EOMs intact bilaterally PUPIL: Yes Equal, round and reactive pupils present Neck/C-Spine: GENERAL: Yes trachea midline Chest: CHEST: Yes Symmetrical chest wall rise Resp: EFFORT & INSPECTION: Yes tachypneic, Yes uses accessory muscles and Yes prolonged expiratory phase AUSCULTATION: diminished lung sounds Cardio: COMMON NORMALS: regular rate and regular rhythm RATE: regular rate RHYTHM: regular rhythm GI: COMMON NORMALS: Normal to inspection, nondistended, normoactive bowel sounds present Extremity: COMMON NORMALS: no pedal edema Neuro: CLAUDIA COMA SCALE: document GCS findings Claudia coma scale eye opening: Spontaneous [place] coma scale verbal response: Orientated Claudia coma scale motor response: Obey commands [place] coma scale total score: 15 SENSORY EXAM: Yes extremities (intact) Psych: COMMON NORMALS: speech normal SPEECH: Yes normal speech Skin: COMMON NORMALS: no rashes or lesions noted GENERAL SKIN EXAM: no rashes or lesions noted Course Vital Signs: Vital signs: Vital Signs Temperature 98.5 F 03/01/22 22:44 Pulse Rate 70 03/02/22 02:55 Respiratory Rate 21 H 03/02/22 03:14 Blood Pressure 126/81 03/02/22 03:14 Pulse Oximetry 94 03/02/22 03:14 Oxygen Delivery Me thod 03/02/22 03:14 Oxygen Flow Rate 3 03/02/22 03:14 MDM - SOB/Dyspnea Medical Decision Making 77-year-old female skilled nursing patient with history of atrial fibrillation. She is here with shortness of breath. She is now somewhat oxygen dependent. However, otherwise vitals are stable. Chest x-ray is negative. CBC is not remarkable. Blood gas shows a pH of 7.4 with a PO2 of 73 on 2.5 L. She is in no distress. She is positive for COVID-19. She will go back to the skilled nursing on oxygen, with antivirals. To return if worsening. Lab Data 03/01/22 22:45 03/01/22 22:45 Labs/Radiology: Radiology Impressions Chest X-Ray 03/01/22 23:10 IMPRESSION: No acute pathology. Laboratory Results WBC 5.8 10^3/uL (4.0-10.0) 03/01/22 22:45 RBC 4.29 10^6/uL (4.1-5.3) 03/01/22 22:45 Hgb 11.9 g/dL (11.5-15.3) 03/01/22 22:45 Hct 37.6 % (37.0-47.0) 03/01/22 22:45 MCV 87.6 fl (81-99) 03/01/22 22:45 MCH 27.7 pg (28.0-34.0) L 03/01/22 22:45 MCHC 31.6 g/dL (30.0-36.0) 03/01/22 22:45 RDW 16.5 % (12.1-15.1) H 03/01/22 22:45 Plt Count 224 10^3/cmm (130-400) 03/01/22 22:45 MPV 10.0 fL (7.4-10.4) 03/01/22 22:45 Neut % (Auto) 81.5 % 03/01/22 22:45 Lymph % (Auto) 8.8 % 03/01/22 22:45 [place] % (Auto) 8.8 % 03/01/22 22:45 Eos % (Auto) 0.3 % 03/01/22 22:45 Baso % (Auto) 0.3 % 03/01/22 22:45 Neut # (Auto) 4.69 10^3/uL (1.8-7.7) 03/01/22 22:45 Lymph # (Auto) 0.5 10^3/uL (0.8-4.8) L 03/01/22 22:45 [place] # (Auto) 0.5 10^3/uL (0.2-0.9) 03/01/22 22:45 Eos # (Auto) 0.0 10^3/uL (0.0-0.8) 03/01/22 22:45 Baso # (Auto) 0.0 10^3/uL (0.0-0.1) 03/01/22 22:45 Nucleated RBC % (auto) 0 % 03/01/22 22:45 Nucleated RBCs # 0.0 /100WBC 03/01/22 22:45 Specimen Type Arterial 03/01/22 23:50 Sample Site Brachial, right 03/01/22 23:50 ABG pH 7.40 (7.35-7.45) 03/01/22 23:50 ABG pCO2 50.1 mmHg (35-45) H 03/01/22 23:50 ABG pO2 73.0 mmHg (80.0-100.0) L 03/01/22 23:50 ABG HCO3 31.3 mmol/L (22-26) H 03/01/22 23:50 ABG Base Excess 5.4 mmol/L (-2.0-2.0) H 03/01/22 23:50 Jordan Test Pos 03/01/22 23:50 Hematocrit 39.9 % (37-47) 03/01/22 23:50 Hgb O2 Saturation 92.6 % (95-100) L 03/01/22 23:50 Carboxyhemoglobin 1.4 %THgb (0.4-20.1) 03/01/22 23:50 Methemoglobin 0.6 % (0.4-1.5) 03/01/22 23:50 Total Hemoglobin 13.0 g/dL (12-16) 03/01/22 23:50 O2 Delivery Device Nc 03/01/22 23:50 O2 Liters/Min 2.5 % 03/01/22 23:50 Insurance Special Agent ID [email or web address] 03/01/22 23:50 Sodium 133 mmol/L (136-145) L 03/01/22 22:45 Potassium 4.0 mmol/L (3.5-5.1) 03/01/22 22:45 Chloride 92 mmol/L (98-107) L 03/01/22 22:45 Carbon Dioxide 30 mmol/L (22-29) H 03/01/22 22:45 Anion Gap 15.0 (5-19) 03/01/22 22:45 BUN 19 mg/dL (8-23) 03/01/22 22:45 Creatinine 1.0 mg/dL (0.5-0.9) H 03/01/22 22:45 GFR Calculation Not Reportable 03/01/22 22:45 Glucose 115 mg/dL (65-115) 03/01/22 22:45 Calculated Osmolality 279 mOsm/kg (285-295) L 03/01/22 22:45 Lactic Acid 0.7 mmol/L (0.5-2.2) 03/02/22 00:11 Calcium 7.8 mg/dL (8.5-10.5) L 03/01/22 22:45 Total Bilirubin 0.6 mg/dL (0.15-1.2) 03/01/22 22:45 AST 17 U/L (0-32) 03/01/22 22:45 ALT 12 U/L (0-33) 03/01/22 22:45 Alkaline Phosphatase 95 U/L (35-105) 03/01/22 22:45 Troponin T Baseline 28 ng/L (0-10) H 12 22:45 Troponin T 120 Minute 25.91 ng/L (0-10) H 03/02/22 00:50 Delta Troponin T -2.09 ABS# (0-10) L 03/02/22 00:50 NT-Pro-B Natriuret Pep 405 pg/mL (0-450) 03/01/22 22:45 Total Protein 6.4 g/dL (6.6-8.7) L 03/01/22 22:45 Albumin 3.7 g/dL (3.5-5.2) 03/01/22 22:45 Globulin 2.7 g/dL (1.3-4.6) 03/01/22 22:45 Nasal Influ A H1 2009 PCR Not detected (NOT DETECT) 03/02/22 00:11 Adenovirus (PCR) Not detected (NOT DETECT) 03/02/22 00:11 C. pneumoniae DNA (PCR) Not detected (NOT DETECT) 03/02/22 00:11 Coronavirus 229E (PCR) Not detected (NOT DETECT) 03/02/22 00:11 Human Metapneumovir PCR Not detected (NOT DETECT) 03/02/22 00:11 Influenza A (H1) PCR Not detected (NOT DETECT) 03/02/22 00:11 Influenza A (H3) PCR Not detected (NOT DETECT) 03/02/22 00:11 Influenza Type A (PCR) Not detected (NOT DETECT) 03/02/22 00:11 Influenza Type B (PCR) Not detected (NOT DETECT) 03/02/22 00:11 M. pneumoniae (PCR) Not detected (NOT DETECT) 03/02/22 00:11 Parainfluenza 1 (PCR) Not detected (NOT DETECT) 03/02/22 00:11 Parainfluenza 2 (PCR) Not detected (NOT DETECT) 03/02/22 00:11 Parainfluenza 3 (PCR) Not detected (NOT DETECT) 03/02/22 00:11 Parainfluenza 4 (PCR) Not detected (NOT DETECT) 03/02/22 00:11 RSV Type A (PCR) Not detected (NOT DETECT) 03/02/22 00:11 RSV Type B (PCR) Not detected (NOT DETECT) 03/02/22 00:11 Entero/Rhino (PCR) Not detected (NOT DETECT) 03/02/22 00:11 SARS-CoV-2 (PCR) Detected (NOT DETECT) A 03/02/22 00:11 Discharge Plan Discharge Patient Disposition: Home Clinical Impression: COVID-19 Condition: Stable Prescriptions: New dexamethasone 6 mg tablet 6 mg PO DAILY Qty: 5 0RF Paxlovid (EUA) 300 mg (150 mg x 2)-100 mg tablets,dose pack See Rx Instructions .ROUTE .COMPLEX Qty: 30 0RF Rx Instructions: take TWO 150 mg tablets of nirmatrelvir with ONE 100 mg tablet of ritonavir twice daily for 5 days No Action potassium chloride 20 mEq tablet extended release 10 meq PO BID cyanocobalamin (vitamin B-12) [Vitamin B-12] 500 mcg tablet 1,000 mcg PO DAILY metoprolol tartrate 25 mg tablet 25 mg PO BID folic acid 1 mg tablet 1 mg PO DAILY albuterol sulfate 2.5 mg/0.5 mL solution for nebulization 2.5 mg INHALATION Q6H PRN (Reason: unknown) Anoro Ellipta 62.5-25 mcg/actuation blister with device 1 inh INHALATION DAILY albuterol sulfate [Ventolin HFA] 90 mcg/actuation HFA aerosol inhaler 2 puff INHALATION Q6H PRN (Reason: Shortness Of Breath) magnesium oxide 400 mg magnesium capsule 400 mg PO BID Qty: 60 0RF levothyroxine 175 mcg Tablet 175 mcg PO DAILY 30 Days Qty: 30 0RF nitroglycerin 0.4 mg tablet, sublingual 0.4 mg SUBLINGUAL Q5M PRN (Reason: Chest Pain) Rx Instructions: do not exceed 3 doses per episode calcium carbonate 600 mg calcium (1,500 mg) Tablet 600 mg PO BID fenofibrate nanocrystallized 48 mg Tablet 48 mg PO DAILY nystatin 100,000 unit/gram Cream See Rx Instructions .ROUTE .COMPLEX Rx Instructions: APPPLY topically TO AFFECTED AREA ON BUTTOCKS AND [place] AREA BID FOR RASH Culturelle 15 billion cell Capsule, Sprinkle 1 cap PO DAILY furosemide 20 mg tablet 20 mg PO DAILY Qty: 30 0RF hydrocodone-acetaminophen 5-325 mg Tablet 1 - 2 tab PO Q6H PRN (Reason: Breakthrough Pain) Qty: 30 0RF acetaminophen [Tylenol] 325 mg Tablet 650 mg PO Q6H PRN (Reason: Pain, Mild) Qty: 0 0RF Myrbetriq 25 mg tablet extended release 24 hr 25 mg PO DAILY polyethylene glycol 3350 [Miralax] 17 gram/dose Powder 17 g PO DAILY PRN (Reason: Constipation) atorvastatin 40 mg Tablet 40 mg PO BEDTIME Qty: 30 0RF ferrous sulfate 325 mg (65 mg iron) Tablet,Delayed Release (Dr/Ec) 325 mg PO BIDWM Qty: 60 0RF Januvia 100 mg tablet 50 mg PO DAILY omeprazole 40 mg capsule,delayed release(DR/EC) 40 mg PO BIDWM Qty: 0 0RF sertraline 100 mg Tablet 100 mg PO DAILY levothyroxine 25 mcg Tablet 12.5 mcg PO DAILY Eliquis 5 mg Tablet 5 mg PO BID Discharge Orders: Discharge ED (Routine); Ordered 03/02/22 Ordered By: Juwan Garcia Referrals: Viktor Baker MD [Primary Care Provider] - 1-3 days Patient Instructions: COVID-19 (Coronavirus Disease 2019) (ED) Activity Restrictions/Additional Instructions: Medications as directed. Use your albuterol nebulizer every 4 hours while awake for the next 24 hours, then as needed. Return for worsening shortness of breath despite treatment, inability to control fever, worsening mental status, other concerning symptoms Coding Level of Care Code ED Training Instructor for Idania Fwmarysol Exam Comprehensive
[2022-03-01 23:33] LABS: Basophils % 0.3 %; Eosinophils % 0.3 %; Hematocrit 37.6 % (37.0-47.0); Hemoglobin 11.9 g/dL (11.5-15.3); Lymphocytes # 0.5 10^3/uL (0.8-4.8); Lymphocytes % 8.8 %; Mean Corpuscular HGB Conc 31.6 g/dL (30.0-36.0); Mean Corpuscular Hemoglobin 27.7 pg (28.0-34.0); Mean Corpuscular Volume 87.6 fl (81-99); Monocytes # 0.5 10^3/uL (0.2-0.9); Monocytes % 8.8 %; Neutrophils # 4.69 10^3/uL (1.8-7.7); Neutrophils % 81.5 %; Nucleated Red Blood Cells % 0 %; Platelet Count 224 10^3/cmm (130-400); Red Blood Count 4.29 10^6/uL (4.1-5.3); Red Cell Distribution Width 16.5 % (12.1-15.1); White Blood Count 5.8 10^3/uL (4.0-10.0)
[2022-03-01 23:35] LABS: Troponin(5th) Baseline 28 ng/L (0-10)
[2022-03-01] MEDS: FUROsemide 10 mg/mL SDV 10mL 60 MG IVP (23:42)
[2022-03-01 23:44] LABS: Alanine Aminotransferase 12 U/L (0-33); Albumin Level 3.7 g/dL (3.5-5.2); Alkaline Phosphatase 95 U/L (35-105); Aspartate Amino Transferase 17 U/L (0-32); Blood Urea Nitrogen 19 mg/dL (8-23); Calcium 7.8 mg/dL (8.5-10.5); Carbon Dioxide 30 mmol/L (22-29); Chloride 92 mmol/L (98-107); Globulin 2.7 g/dL (1.3-4.6); Glucose 115 mg/dL (65-115); NT Pro B Type Natriuretic Pept 405 pg/mL (0-450); Osmolality Calculated 279 mOsm/kg (285-295); Sodium 133 mmol/L (136-145); Total Bilirubin 0.6 mg/dL (0.15-1.2); Total Protein 6.4 g/dL (6.6-8.7)
[2022-03-02 00:31] VITALS: PULSE 70; RESP 22; O2SAT 91
[2022-03-02] MEDS: ipratropium-albuterol 3 mL Neb INHALATION (00:31)
[2022-03-02 00:54] LABS: Lactic Sepsis W/Reflex 0.7 mmol/L (0.5-2.2)
[2022-03-02 01:03] LABS: ABG PCO2 50.1 mmHg (35-45); Arterial Blood Gas Hematocrit 39.9 % (37-47); Base Excess ABG 5.4 mmol/L (-2.0-2.0); Blood Gas Allen Test Pos; Blood Gas Sample Site Brachial, right; Blood Gas Sample Type Arterial; Carboxyhemoglobin 1.4 %THgb (0.4-20.1); HCO3 ABG 31.3 mmol/L (22-26); HGB O2 Sat 92.6 % (95-100); Methemoglobin 0.6 % (0.4-1.5)
[2022-03-02 01:04] LABS: Blood Gas LPM 2.5 %; Oxygen Device NC
[2022-03-02 01:24] LABS: Troponin 5 2HR 25.91 ng/L (0-10)
[2022-03-02 01:25] LABS: Troponin 5 2HR Delta -2.09 ABS# (0-10)
[2022-03-02 02:14] LABS: Adenovirus Not Detected (NOT DETECT); Chlamydia Pneumoniae Not Detected (NOT DETECT); Coronavirus 229E,HKU1,NL63,OC4 Not Detected (NOT DETECT); Human Metapneumovirus Not Detected (NOT DETECT); Human Rhinovirus/Enterovirus Not Detected (NOT DETECT); Influenza A Not Detected (NOT DETECT); Influenza A H1 Not Detected (NOT DETECT); Influenza A H1-2009 Not Detected (NOT DETECT); Influenza A H3 Not Detected (NOT DETECT); Influenza B Not Detected (NOT DETECT); Mycoplasma Pneumoniae Not Detected (NOT DETECT); Parainfluenza Virus Type 1 Not Detected (NOT DETECT); Parainfluenza Virus Type 2 Not Detected (NOT DETECT); Parainfluenza Virus Type 3 Not Detected (NOT DETECT); Parainfluenza Virus Type 4 Not Detected (NOT DETECT); Respiratory Syncytial Virus A Not Detected (NOT DETECT); Respiratory Syncytial Virus B Not Detected (NOT DETECT); SARS-COV-2 Detected (NOT DETECT)
[2022-03-02] MEDS: dexamethasone 4 mg/mL INJ 8 MG IVP (02:18)
[2022-03-02 02:55] VITALS: BP 110/74; PULSE 70; RESP 22; O2SAT 91
[2022-03-02 03:14] VITALS: BP 126/81; RESP 21; O2SAT 94
== END 2022-03-02 03:31 | disposition home or self-care (01) ==
PROVIDERS: Emergency Provider Emergency Medicine; PCP Family Medicine
DX: U07.1 COVID-19 (principal); Z87.891 Personal history of nicotine dependence
CPT/HCPCS: 36600; 71045; 80053; 82805; 83605; 83880; 84484; 85025; 87486; 87581; 87633; 93005; 94640; 96374; 96375; 99285; J1100; J1940

== ENCOUNTER 2022-06-04 12:32 | Outpatient (CLI) | payer MEDICARE, MEDICAID, SELFPAY ==
[2022-06-04 12:47] LABS: Basophils % 0.2 %; Eosinophils % 0.2 %; Hematocrit 37.6 % (37.0-47.0); Hemoglobin 11.5 g/dL (11.5-15.3); Lymphocytes # 0.4 10^3/uL (0.8-4.8); Lymphocytes % 2.8 %; Mean Corpuscular HGB Conc 30.6 g/dL (30.0-36.0); Mean Corpuscular Hemoglobin 26.7 pg (28.0-34.0); Mean Corpuscular Volume 87.2 fl (81-99); Mean Platelet Volume 9.7 fL (7.4-10.4); Monocytes # 0.6 10^3/uL (0.2-0.9); Monocytes % 5.1 %; Neutrophils # 11.49 10^3/uL (1.8-7.7); Neutrophils % 91.2 %; Nucleated Red Blood Cells % 0 %; Platelet Count 325 10^3/cmm (130-400); Red Blood Count 4.31 10^6/uL (4.1-5.3); Red Cell Distribution Width 15.9 % (12.1-15.1); White Blood Count 12.6 10^3/uL (4.0-10.0)
[2022-06-04 13:27] LABS: NT Pro B Type Natriuretic Pept 1652 pg/mL (0-450)
[2022-06-04 16:34] LABS: Alanine Aminotransferase 10 U/L (0-33); Albumin Level 3.4 g/dL (3.5-5.2); Alkaline Phosphatase 168 U/L (35-105); Anion Gap 23.4 (5-19); Aspartate Amino Transferase 13 U/L (0-32); Blood Urea Nitrogen 19 mg/dL (8-23); Calcium 7.9 mg/dL (8.5-10.5); Carbon Dioxide 27 mmol/L (22-29); Chloride 94 mmol/L (98-107); Globulin 2.8 g/dL (1.3-4.6); Glucose 142 mg/dL (65-115); Osmolality Calculated 295 mOsm/kg (285-295); Potassium 4.4 mmol/L (3.5-5.1); Sodium 140 mmol/L (136-145); Total Bilirubin 0.5 mg/dL (0.15-1.2); Total Protein 6.2 g/dL (6.6-8.7)
== END 2022-06-04 12:33 | disposition home or self-care (01) ==
PROVIDERS: PCP Family Medicine; Visit Provider Physician Assistant
DX: I13.0 Hypertensive heart and chronic kidney disease with heart failure and stage 1 through stage 4 chronic kidney disease, or unspecified chronic kidney disease (principal)
CPT/HCPCS: 80053; 83880; 85025

== ENCOUNTER 2022-07-31 02:37 | Inpatient (IN) | payer MEDICARE, MEDICAID, SELFPAY ==
[2022-07-31] VITALS (23 sets, daily range): BP systolic 101–149; BP diastolic 20–87; PULSE 66–112; RESP 16–41; TEMP 36.5–36.9; O2SAT 91–100; BMI 36.6
--- NOTE | 2022-07-31 02:45 | XRR_ITS ---
PROCEDURE INFORMATION: Exam: XR Chest Exam date and time: 07/31/2022 2:55 AM Age: 77 years old Clinical indication: Shortness of breath; Prior surgery; Surgery type: Thyroidectomy. Gb; Patient HX: From [facility] via EMS for resp distress. History of copd and chf. ; Additional info: SOB TECHNIQUE: Imaging protocol: Radiologic exam of the chest. Views: 1 view. COMPARISON: CR XR chest 1V portable [id number] 03/01/2022 11:31 PM FINDINGS: Tubes, catheters and devices: Neck clips. Lungs: Unremarkable. No consolidation. Pleural spaces: Unremarkable. No pleural effusion. No pneumothorax. Heart/Mediastinum: Borderline cardiomegaly. Bones/joints: Unremarkable. XR/XR chest 1V portable [id number] IMPRESSION: No acute findings.
--- NOTE | 2022-07-31 02:54 | W.ED.SOB ---
HPI - SOB/Dyspnea General: Chief Complaint: Shortness of Breath/Dyspnea Stated Complaint: RESP. DISTRESS Time Seen by Provider: 07/31/22 02:39 Source: patient and EMS Mode of arrival: EMS Limitations: no limitations History of Present Illness: HPI Narrative: 77-year-old female history of COPD CHF along with dementia is here from shelter per shelter she had increasing work of breath over the last 2 hours patient here is in distress with audible wheezing tachypnea and increased work of breathing she is demented not really able to give any history afebrile at the shelter has not complained of any pain. Review of Systems General: Reports: ROS unobtainable due to mental status Resp: Reports: dyspnea PFSH ED PFSH: Medical History (Updated 07/31/22 @ 03:53 by Emilie Simms MD) Acute respiratory failure with hypoxia -Required intubation following CODE BLUE, extubated on 05/14 CAD (coronary artery disease) -NSTEMI and code blue during hospitalization in 04/2019 -has been following up with cardiology -Echo (04/2019): EF=64%, no RWMA, G1DD, mild MR, trace AR -had coronary angiogram (06/2019) showing normal coronaries -on statin, BB Congestive heart failure -no acute exacerbation currently -last Echo: EF=64%, no RWMA, G1DD, mild MR, trace AR COPD (chronic obstructive pulmonary disease) -follows up with Dr. Lane -no acute exacerbation, not oxygen dependent at baseline Dementia DVT (deep venous thrombosis) -previously found to have R basilic vein DVT -had been on AC with Eliquis, now discontinued; not a good candidate for further anticoagulation due to underlying anemia GI bleed Hypertension -VSS; continue to monitor Hypocalcemia -previously noted; corrected Ca-8.5 -PTH wnl Hypothyroidism -Hx of thyroid cancer s/p thyroidectomy with acquired hypothyroidism -continue levothyroxine Lymphedema Macrocytic anemia -has chronic macrocytic anemia; has evidence of vitamin B12 and folate deficiency -replacing vitamin B12, folate -also noted evidence of low iron Non-insulin dependent type 2 diabetes mellitus -A1c-5.5 -Acchucheks, hypoglycemia precautions, ISS Normocytic anemia -acute blood loss on chronic normocytic anemia; previously had macrocytic anemia secondary to vitamin B12 and folate deficiencies -plan for EGD and colonoscopy by Dr. Sapp; per my discussion with him, would like to wait at least 6-8 weeks post-op to allow for appropriate recovery -AC has been on hold; had previously been on Eliquis due to UE superficial DVT -s/p 4 units PRBCs due to acute drop in Hg (09/03 & 09/05); continue to closely monitor H/H. Hg increased to 9.4 today -baseline Hg appears to be around 11 -on PPI NSTEMI (non-ST elevated myocardial infarction) Surgical History H/O esophagogastroduodenoscopy (09/20/19) H/O thyroidectomy History of ankle surgery S/P cholecystectomy Status post colonoscopy with polypectomy (09/20/19) Family History Other Breast cancer CAD (coronary artery disease) Diabetes Hypertension Social History Smoking and tobacco status: former smoker Quit status (tobacco): has quit using tobacco Former quit date comment: Smoked briefly in her teens. Alcohol intake: never Substance/Drug Use: never Lives independently: Yes Household members: none Housing: Apartment Current occupational status: disabled Do you think of yourself as: Straight/Heterosexual Current gender identity: Female Physical Exam Const: COMMON NORMALS: negative for patient oriented x3 GENERAL APPEARANCE: in distress and ill appearing HENMT: COMMON NORMALS: normocephalic and atraumatic HEAD & SCALP: normocephalic and atraumatic Eye: COMMON NORMALS: Equal, round and reactive pupils present and EOMs intact bilaterally PUPIL: Yes Equal, round and reactive pupils present Neck/C-Spine: COMMON NORMALS: full ROM and supple Chest: COMMONS NORMALS: normal inspection of the chest and normal palpation of entire chest wall Resp: EFFORT & INSPECTION: Yes tachypneic, Yes respiratory distress and Yes labored AUSCULTATION: rales and wheezes Cardio: COMMON NORMALS: regular rate, regular rhythm and No murmurs present (Cardio) RATE: regular rate RHYTHM: regular rhythm GI: COMMON NORMALS: Normal to inspection, nondistended, normoactive bowel sounds present, Soft to palpation, non-tender and no masses PALPATION: Yes Soft to palpation Extremity: COMMON NORMALS: normal to inspection and full ROM Neuro: COMMON NORMALS: moves all extremities and no focal motor deficits; negative for patient oriented x3 Psych: COMMON NORMALS: cooperative; negative for mental status grossly normal Skin: COMMON NORMALS: no rashes or lesions noted and no wounds GENERAL SKIN EXAM: no rashes or lesions noted Course Vital Signs: Vital signs: Vital Signs Temperature 97.7 F 07/31/22 02:43 Pulse Rate 98 07/31/22 03:13 Respiratory Rate 23 H 07/31/22 03:07 Blood Pressure 149/20 07/31/22 02:43 Pulse Oximetry 100 07/31/22 03:08 Oxygen Delivery Me thod BiPAP 07/31/22 03:07 Oxygen Flow Rate 2 07/31/22 02:43 Fraction of Inspir ed Oxygen 40 07/31/22 03:08 MDM - SOB/Dyspnea Medical Decision Making Patient presents with likely COPD exacerbation with hypercapnia and hypoxia she is improving here on BiPAP I did speak to her son she is a DNR and DNI I spoke to hospitalist will admit at this time. Differential Diagnosis Likely acute exacerbation of chronic obstructive airways disease; Unlikely congestive heart failure, community acquired pneumonia or pulmonary embolism Medical Records I reviewed the patient's medical records. Lab Data I reviewed the patient's lab results. 07/31/22 03:00 07/31/22 03:00 Labs/Radiology: Laboratory Results WBC 11.7 10^3/uL (4.0-10.0) H 07/31/22 03:00 RBC 4.14 10^6/uL (4.1-5.3) 07/31/22 03:00 Hgb 10.9 g/dL (11.5-15.3) L 07/31/22 03:00 Hct 35.0 % (37.0-47.0) L 07/31/22 03:00 MCV 84.5 fl (81-99) 07/31/22 03:00 MCH 26.3 pg (28.0-34.0) L 07/31/22 03:00 MCHC 31.1 g/dL (30.0-36.0) 07/31/22 03:00 RDW 16.7 % (12.1-15.1) H 07/31/22 03:00 Plt Count 228 10^3/cmm (130-400) 07/31/22 03:00 MPV 9.1 fL (7.4-10.4) 07/31/22 03:00 Neut % (Auto) 89.2 % 07/31/22 03:00 Lymph % (Auto) 4.4 % 07/31/22 03:00 [place] % (Auto) 4.4 % 07/31/22 03:00 Eos % (Auto) 1.4 % 07/31/22 03:00 Baso % (Auto) 0.3 % 07/31/22 03:00 Neut # (Auto) 10.42 10^3/uL (1.8-7.7) H 07/31/22 03:00 Lymph # (Auto) 0.5 10^3/uL (0.8-4.8) L 07/31/22 03:00 [place] # (Auto) 0.5 10^3/uL (0.2-0.9) 07/31/22 03:00 Eos # (Auto) 0.2 10^3/uL (0.0-0.8) 07/31/22 03:00 Baso # (Auto) 0.0 10^3/uL (0.0-0.1) 07/31/22 03:00 Nucleated RBC % (auto) 0 % 07/31/22 03:00 Nucleated RBCs # 0.0 /100WBC 07/31/22 03:00 PT 14.60 SECONDS (12.1-14.9) 07/31/22 03:00 INR 1.11 (0.8-1.2) 07/31/22 03:00 Specimen Type Arterial 07/31/22 03:06 ABG pH 7.29 (7.35-7.45) L 07/31/22 03:06 ABG pCO2 67.1 mmHg (35-45) H* 07/31/22 03:06 ABG pO2 169.0 mmHg (80.0-100.0) H 07/31/22 03:06 ABG HCO3 32.3 mmol/L (22-26) H 07/31/22 03:06 ABG Base Excess 4.1 mmol/L (-2.0-2.0) H 07/31/22 03:06 Jordan Test Pos 07/31/22 03:06 Hematocrit 34.8 % (37-47) L 07/31/22 03:06 Hgb O2 Saturation 99.9 % (95-100) 07/31/22 03:06 Carboxyhemoglobin 1.2 %THgb (0.4-20.1) 07/31/22 03:06 Methemoglobin < 0.0 % (0.4-1.5) L 07/31/22 03:06 Total Hemoglobin 11.4 g/dL (12-16) L 07/31/22 03:06 Resource Efficiency Manager ID Anonymous 07/31/22 03:06 Sodium 134 mmol/L (136-145) L 07/31/22 03:00 Potassium 4.1 mmol/L (3.5-5.1) 07/31/22 03:00 Chloride 93 mmol/L (98-107) L 07/31/22 03:00 Carbon Dioxide 33 mmol/L (22-29) H 07/31/22 03:00 Anion Gap 12.1 (5-19) 07/31/22 03:00 BUN 16 mg/dL (8-23) 07/31/22 03:00 Creatinine 0.8 mg/dL (0.5-0.9) 07/31/22 03:00 GFR Calculation Not Reportable 07/31/22 03:00 Glucose 163 mg/dL (65-115) H 07/31/22 03:00 Calculated Osmolality 283 mOsm/kg (285-295) L 07/31/22 03:00 Calcium 8.1 mg/dL (8.5-10.5) L 07/31/22 03:00 Total Bilirubin 0.5 mg/dL (0.15-1.2) 07/31/22 03:00 AST 7 U/L (0-32) 07/31/22 03:00 ALT < 5 U/L (0-33) 07/31/22 03:00 Alkaline Phosphatase 89 U/L (35-105) 07/31/22 03:00 NT-Pro-B Natriuret Pep 725 pg/mL (0-450) H 07/31/22 03:00 Total Protein 6.5 g/dL (6.6-8.7) L 07/31/22 03:00 Albumin 3.6 g/dL (3.5-5.2) 07/31/22 03:00 Globulin 2.9 g/dL (1.3-4.6) 07/31/22 03:00 EKG Data EKG 1: I personally reviewed and interpreted this EKG as follows: EKG Interpretation Date: 07/31/22 EKG interpretation time: 02:55 Interpretation: nsr hr [address] or t wave abnormalities qrs 92 qtc 400 Critical Care Time Critical Care Time: Critical Care Time: Yes Total Critical Care Time: 40 Attestation: The high probability of a clinically significant, sudden or life threatening deterioration of the patient's resp system(s) required my full and direct attention, intervention and personal management. The critical care time is as shown. This time is in addition to time spent performing any reported procedures but includes the following: [x] Data and vital sign review and interpretation [x] Patient assessment, examination and intervention [x] Documentation [x] Medication orders and management Discharge Plan Discharge Patient Disposition: Admitted As Inpatient Clinical Impression: Acute exacerbation of chronic obstructive airways disease, Respiratory failure with hypoxia and hypercapnia Condition: Stable Coding Level of Care Code ED De Alcoholizer for Idania Allison
--- NOTE | 2022-07-31 02:55 | ECG_ITS ---
[facility] Test Date: 2022-07-31 Pat Name: Michelle Becerra Department: Room: Gender: Female Non Destructive Evaluation Manager: : 1945 Requested By: Emilie Simms Order Number: [id number] MD: Yulissa Colon M.D. Measurements Intervals [place] Rate: 99 P: 87 MA: 183 QRS: -12 QRSD: 92 T: 73 QT: 344 QTc: 441 Interpretive Statements SINUS RHYTHM MINIMAL ST DEPRESSION [0.025+ mV ST DEPRESSION] Compared to ECG 03/01/2022 22:46:41 ST (T wave) deviation now present Electronically Signed On 07-31-2022 21:19:25 CDT by Yulissa Colon M.D. [email or web address]
[2022-07-31] MEDS: albuterol 2.5 mg/3 mL Neb INHALATION (03:06)
[2022-07-31] MEDS: ipratropium 0.5 mg/2.5 mL Neb INHALATION (03:06)
[2022-07-31 03:08] LABS: Basophils % 0.3 %; Eosinophils # 0.2 10^3/uL (0.0-0.8); Eosinophils % 1.4 %; Hemoglobin 10.9 g/dL (11.5-15.3); Lymphocytes # 0.5 10^3/uL (0.8-4.8); Lymphocytes % 4.4 %; Mean Corpuscular HGB Conc 31.1 g/dL (30.0-36.0); Mean Corpuscular Hemoglobin 26.3 pg (28.0-34.0); Mean Corpuscular Volume 84.5 fl (81-99); Mean Platelet Volume 9.1 fL (7.4-10.4); Monocytes # 0.5 10^3/uL (0.2-0.9); Monocytes % 4.4 %; Neutrophils # 10.42 10^3/uL (1.8-7.7); Neutrophils % 89.2 %; Nucleated Red Blood Cells % 0 %; Platelet Count 228 10^3/cmm (130-400); Red Blood Count 4.14 10^6/uL (4.1-5.3); Red Cell Distribution Width 16.7 % (12.1-15.1); White Blood Count 11.7 10^3/uL (4.0-10.0)
[2022-07-31 03:17] LABS: ABG PH Result 7.29 (7.35-7.45); Arterial Blood Gas Hematocrit 34.8 % (37-47); Base Excess ABG 4.1 mmol/L (-2.0-2.0); Blood Gas Sample Type Arterial; Carboxyhemoglobin 1.2 %THgb (0.4-20.1); HCO3 ABG 32.3 mmol/L (22-26); HGB O2 Sat 99.9 % (95-100); Methemoglobin < 0.0 % (0.4-1.5); Total Hemoglobin 11.4 g/dL (12-16)
[2022-07-31 03:18] LABS: ABG PCO2 67.1 mmHg (35-45)
[2022-07-31 03:21] LABS: INR 1.11 (0.8-1.2)
[2022-07-31 03:40] LABS: Alanine Aminotransferase < 5 U/L (0-33); Albumin Level 3.6 g/dL (3.5-5.2); Alkaline Phosphatase 89 U/L (35-105); Anion Gap 12.1 (5-19); Aspartate Amino Transferase 7 U/L (0-32); Blood Urea Nitrogen 16 mg/dL (8-23); Calcium 8.1 mg/dL (8.5-10.5); Carbon Dioxide 33 mmol/L (22-29); Chloride 93 mmol/L (98-107); Creatinine Clr Calc Pharmacy 60.7031; Globulin 2.9 g/dL (1.3-4.6); Glucose 163 mg/dL (65-115); NT Pro B Type Natriuretic Pept 725 pg/mL (0-450); Osmolality Calculated 283 mOsm/kg (285-295); Potassium 4.1 mmol/L (3.5-5.1); Sodium 134 mmol/L (136-145); Total Bilirubin 0.5 mg/dL (0.15-1.2); Total Protein 6.5 g/dL (6.6-8.7)
[2022-07-31 05:01] LABS: ABG PCO2 59.6 mmHg (35-45); ABG PH Result 7.36 (7.35-7.45); Arterial Blood Gas Hematocrit 33.1 % (37-47); Base Excess ABG 6.9 mmol/L (-2.0-2.0); Blood Gas Allen Test Pos; Blood Gas Sample Site Radial, right; Blood Gas Sample Type Arterial; HCO3 ABG 33.8 mmol/L (22-26); Oxygen Device BIPAP
--- NOTE | 2022-07-31 05:08 | ECG_ITS ---
[facility] Test Date: 2022-07-31 Pat Name: Michelle Becerra Department: Room: 258 Gender: Female Telephonic Rn: : 1945 Requested By: Gagan Albright Order Number: [id number] Deb MD: Yulissa Colon M.D. Measurements Intervals [place] Rate: 79 P: 47 LA: 176 QRS: 0 QRSD: 90 T: 63 QT: 381 QTc: 437 Interpretive Statements SINUS RHYTHM Compared to ECG 07/31/2022 02:55:03 ST (T wave) deviation no longer present Electronically Signed On 07-31-2022 21:19:38 CDT by Yulissa Colon M.D. [email or web address] general hospitalJustFoodForDogscrystal [facility].Seatwave/store/OM/[id number]
--- NOTE | 2022-07-31 05:10 | PM.HP ---
Providers/Chief Complaint Admitting Physician: Gagan Albright MD Primary Care Provider: Viktor Baker MD Chief Complaint: RESP. DISTRESS History of Present Illness Michelle Becerra is a 77 year old female with a past medical history of COPD, history of DVT, history of pzn-eelrkfw-rcrwectkx type 2 diabetes mellitus, hypertension, hypothyroidism, COPD, obesity, GEOVANNI, GERD, CKD, history of dementia, had COVID back in February, history of CAD, history of diastolic heart failure who presents to [facility] due to shortness of breath. Currently she is alert to person, not to place, not to time, but I was able to get some history from her, she reports that she was sent over from the [facility] due to feeling unwell, due to feeling short of breath, she is currently on BiPAP, she denies feeling short of breath, does report a cough, denies any chest pain, she can follow some commands, but is confused. According to the [facility], this morning, patient's O2 sats were in the low 80s, she looked great, she looked short of breath, so she was sent to [facility] for evaluation. In the emergency room, patient was placed on BiPAP, found to be in hypercarbic respiratory failure, she is a DNR, ER physician had a discussion with patient's family, patient is DNI, currently she is on BiPAP, resting comfortably, able to answer a few phrases without feeling short of breath Review of Systems General: Reports: ROS unobtainable due to mental status Const: Denies: fever(s) Card: Denies: chest pain Resp: Reports: dyspnea GI: Denies: abdominal pain : Denies: difficulty voiding Medications/Allergies Home Medications Medication Instructions Recorded Confirmed Last Taken Type levothyroxine 175 mcg tablet 175 mcg PO DAILY 30 days #30 tabs 05/20/19 10/25/19 10/18/19 Rx albuterol sulfate 2.5 mg/0.5 mL 2.5 mg inhalation Q6H PRN unknown 06/30/19 10/25/19 09/19/19 History solution for nebulization cyanocobalamin (vitamin B-12) 500 1,000 mcg PO DAILY 06/30/19 10/25/19 10/18/19 History mcg tablet (Vitamin B-12) folic acid 1 mg tablet 1 mg PO DAILY 06/30/19 10/25/19 10/18/19 History metoprolol tartrate 25 mg tablet 25 mg PO BID 06/30/19 10/25/19 10/18/19 History potassium chloride 20 mEq 10 meq PO BID 06/30/19 10/25/19 10/18/19 History tablet,extended release albuterol sulfate 90 mcg/actuation 2 puff inhalation Q6H PRN 07/06/19 10/25/19 09/19/19 History aerosol inhaler (Ventolin HFA) Shortness Of Breath umeclidinium 62.5 mcg-vilanterol 1 inh inhalation DAILY 07/06/19 10/25/19 10/18/19 History 25 mcg/actuation powdr for inhalation (Anoro Ellipta) mirabegron 25 mg tablet,extended 25 mg PO DAILY 07/11/19 10/25/19 10/18/19 History release 24 hr (Myrbetriq) polyethylene glycol 3350 17 17 g PO DAILY PRN Constipation 07/11/19 10/25/19 09/19/19 History gram/dose oral powder (Miralax) magnesium oxide 400 mg PO BID #60 caps 07/25/19 10/25/19 10/18/19 Rx nitroglycerin 0.4 mg sublingual 0.4 mg sublingual Q5M PRN Chest 07/26/19 10/25/19 Unknown History tablet Pain atorvastatin 40 mg tablet 40 mg PO BEDTIME #30 tabs 08/05/19 10/25/19 10/17/19 Rx ferrous sulfate 325 mg (65 mg 325 mg PO BIDWM #60 tabs 08/15/19 10/25/19 10/18/19 Rx iron) tablet,delayed release Lactobacillus rhamnosus GG 15 1 cap PO DAILY 09/03/19 10/25/19 10/17/19 History billion cell sprinkle capsule (Culturelle) calcium carbonate 600 mg calcium 600 mg PO BID 09/03/19 10/25/19 10/18/19 History (1,500 mg) tablet fenofibrate nanocrystallized 48 mg 48 mg PO DAILY 09/03/19 10/25/19 10/18/19 History tablet nystatin 100,000 unit/gram topical See Rx Instructions .Route .COMPLEX 09/03/19 10/25/19 09/19/19 History cream acetaminophen 325 mg tablet 650 mg PO Q6H PRN Pain, Mild #0 09/08/19 10/25/19 09/12/19 Rx (Tylenol) tabs furosemide 20 mg tablet 20 mg PO DAILY #30 tabs 09/08/19 10/25/19 10/18/19 Rx hydrocodone 5 mg-acetaminophen 325 1 - 2 tab PO Q6H PRN Breakthrough 09/08/19 10/25/19 09/19/19 Rx mg tablet Pain #30 tabs sitagliptin phosphate 100 mg 50 mg PO DAILY 09/16/19 10/25/19 10/18/19 History tablet (Januvia) omeprazole 40 mg capsule,delayed 40 mg PO BIDWM #0 caps 09/20/19 10/25/19 10/18/19 Rx release apixaban 5 mg tablet (Eliquis) 5 mg PO BID 10/18/19 10/25/19 10/18/19 History levothyroxine 25 mcg tablet 12.5 mcg PO DAILY 10/18/19 10/25/19 10/18/19 History sertraline 100 mg tablet 100 mg PO DAILY 10/18/19 10/25/19 10/18/19 History dexamethasone 6 mg tablet 6 mg PO DAILY #5 tabs 03/02/22 Unknown Rx nirmatrelvir 300 mg (150 mg See Rx Instructions PO .COMPLEX 03/02/22 Unknown Rx x2)-ritonavir 100 mg tablet,dose #30 ea pack(EUA) (Paxlovid) Allergies Allergy/AdvReac Type Severity Reaction Status Date / Time methylprednisolone Allergy ALGY-Rash Verified 07/31/22 02:48 [From Solu-Medrol] piperacillin [From Zosyn] Allergy ALGY-Rash Verified 07/31/22 02:48 tazobactam [From Zosyn] Allergy ALGY-Rash Verified 07/31/22 02:48 PFSH Acute PFSH: Medical History (Updated 07/31/22 @ 05:16 by Gagan Albright MD) Acute respiratory failure with hypoxia -Required intubation following CODE BLUE, extubated on 05/14 CAD (coronary artery disease) -NSTEMI and code blue during hospitalization in 04/2019 -has been following up with cardiology -Echo (04/2019): EF=64%, no RWMA, G1DD, mild MR, trace AR -had coronary angiogram (06/2019) showing normal coronaries -on statin, BB Congestive heart failure -no acute exacerbation currently -last Echo: EF=64%, no RWMA, G1DD, mild MR, trace AR COPD (chronic obstructive pulmonary disease) -follows up with Dr. Lane -no acute exacerbation, not oxygen dependent at baseline Dementia DVT (deep venous thrombosis) -previously found to have R basilic vein DVT -had been on AC with Eliquis, now discontinued; not a good candidate for further anticoagulation due to underlying anemia GI bleed Hypertension -VSS; continue to monitor Hypocalcemia -previously noted; corrected Ca-8.5 -PTH wnl Hypothyroidism -Hx of thyroid cancer s/p thyroidectomy with acquired hypothyroidism -continue levothyroxine Lymphedema Macrocytic anemia -has chronic macrocytic anemia; has evidence of vitamin B12 and folate deficiency -replacing vitamin B12, folate -also noted evidence of low iron Non-insulin dependent type 2 diabetes mellitus -A1c-5.5 -Acchucheks, hypoglycemia precautions, ISS Normocytic anemia -acute blood loss on chronic normocytic anemia; previously had macrocytic anemia secondary to vitamin B12 and folate deficiencies -plan for EGD and colonoscopy by Dr. Sapp; per my discussion with him, would like to wait at least 6-8 weeks post-op to allow for appropriate recovery -AC has been on hold; had previously been on Eliquis due to UE superficial DVT -s/p 4 units PRBCs due to acute drop in Hg (09/03 & 09/05); continue to closely monitor H/H. Hg increased to 9.4 today -baseline Hg appears to be around 11 -on PPI NSTEMI (non-ST elevated myocardial infarction) Surgical History H/O esophagogastroduodenoscopy (09/20/19) H/O thyroidectomy History of ankle surgery S/P cholecystectomy Status post colonoscopy with polypectomy (09/20/19) Family History Other Breast cancer CAD (coronary artery disease) Diabetes Hypertension Social History Smoking and tobacco status: former smoker Quit status (tobacco): has quit using tobacco Former quit date comment: Smoked briefly in her teens. Alcohol intake: never Substance/Drug Use: never Lives independently: Yes Household members: none Housing: Apartment Current occupational status: disabled Do you think of yourself as: Straight/Heterosexual Current gender identity: Female Vitals/I&O/Wt Last Vital Signs Temp 97.7 F 07/31/22 02:43 Pulse 98 07/31/22 03:13 Resp 23 H 07/31/22 03:07 BP 149/20 07/31/22 02:43 Pulse Ox 100 07/31/22 03:08 O2 Del Method BiPAP 07/31/22 03:07 O2 Flow Rate 2 07/31/22 02:43 FiO2 40 07/31/22 03:08 Weight last 48 hrs Weight 90.718 kg Physical Exam Const: COMMON NORMALS: no acute distress EXAM LIMITATIONS: altered mental status ORIENTATION/CONSCIOUSNESS: Yes awake, Yes oriented to person and Yes confused; not oriented to place and not oriented to time HENMT: COMMON NORMALS: normocephalic HEAD & SCALP: normocephalic Eye: COMMON NORMALS: Equal, round and reactive pupils present and EOMs intact bilaterally Neck/C-Spine: COMMON NORMALS: full ROM and no lymphadenopathy Resp: COMMON NORMALS: normal respiratory effort, No retractions and No use of accessory muscles AUSCULTATION: crackles and wheezes Cardio: COMMON NORMALS: regular rate, regular rhythm, S1 normal heart sound present and S2 normal heart sound present RATE: regular rate RHYTHM: regular rhythm HEART SOUNDS: S1 normal heart sound present and S2 normal heart sound present GI: COMMON NORMALS: Normal to inspection, nondistended, normoactive bowel sounds present, Soft to palpation and non-tender Data 07/31/22 03:00 07/31/22 03:00 Other data: EKG personally reviewed by me shows normal sinus rhythm nonspecific ST-T wave changes Chest x-ray shows on my examination shows bibasilar infiltrates A&P Assessment and plan (1) Respiratory failure with hypoxia and hypercapnia: (2) Acute exacerbation of chronic obstructive airways disease: (3) Pneumonia: (4) CHF exacerbation: (5) Acute encephalopathy: Plan Acute hypoxic hypercarbic respiratory failure -Secondary to pneumonia, -Secondary to COPD exacerbation -Secondary to CHF, on examination has pitting edema Plan -Admit to medical floor -Continue BiPAP -Monitor respiratory status closely -Continue Rocephin, continue azithromycin -Continue Decadron -Lasix 40 IV daily -Serial EKGs, serial troponins, telemetry monitoring -DuoNebs -Budesonide -DNR/DNI -Lovenox for DVT prophylaxis Acute encephalopathy with underlying dementia, monitor mentation Xoc-mefrrrr-atkjlqutz type 2 diabetes mellitus, check A1c, monitor blood sugars Attestations Medical Necessity Statement*: Patient requires hospitalization, inpatient, greater than 2 midnights, for acute hypoxic hypercarbic respiratory failure secondary to pneumonia, COPD, CHF, inpatient, greater than 2 midnights Diagnoses Respiratory failure with hypoxia and hypercapnia J96.91; J96.92 Acute exacerbation of chronic obstructive airways disease J44.1 Pneumonia J18.9 CHF exacerbation I50.9 Acute encephalopathy G93.40
[2022-07-31 05:47] LABS: Lactic Sepsis W/Reflex 0.9 mmol/L (0.5-2.2)
[2022-07-31] MEDS: pantoprazole 40 mg SDV IVP (06:18)
[2022-07-31] MEDS: FUROsemide 10 mg/mL SDV 4mL 40 MG IVP ×2 (06:18→21:56)
[2022-07-31] MEDS: dexamethasone 10 mg/mL INJ 6 MG IVP (06:18)
[2022-07-31] MEDS: enoxaparin 40 mg/0.4 mL Syringe SUBCUT (06:19)
[2022-07-31 06:32] LABS: Glucose Point of Care 139 mg/dL (70-110)
[2022-07-31] MEDS: azithromycin 500 MG in sodium chloride 0.9% 250 ML 250 MG IV (06:49)
[2022-07-31 07:08] LABS: Estmated Average Glucose 123; Hemoglobin A1C 5.9 % (4.0-6.0)
--- NOTE | 2022-07-31 07:08 | ECG_ITS ---
[facility] Test Date: 2022-07-31 Pat Name: Michelle Becerra Department: Room: 258 Gender: Female News Camera Person: : 1945 Requested By: Gagan Albright Order Number: [id number] Deb MD: Yulissa Colon M.D. Measurements Intervals [place] Rate: 71 P: 56 IA: 170 QRS: -7 QRSD: 94 T: 67 QT: 395 QTc: 432 Interpretive Statements SINUS RHYTHM Compared to ECG 07/31/2022 05:18:18 No significant changes Electronically Signed On 07-31-2022 21:28:55 CDT by Yulissa Colon M.D. [email or web address] and Logisticstippah county hospitalNorthPageselect medical trihealth rehabilitation hospitalCheckmarx/store/OM/[id number]
[2022-07-31 07:10] LABS: Procalcitonin 0.18 ng/mL (0-0.5)
[2022-07-31 07:20] LABS: C Reactive Protein 68.4 mg/L (0.0-4.9)
[2022-07-31 07:45] LABS: Troponin(5th) Baseline 114 ng/L (0-10)
[2022-07-31] MEDS: budesonide 0.5 mg/2 mL Neb INHALATION ×2 (08:27→20:34)
[2022-07-31] MEDS: ipratropium-albuterol 3 mL Neb INHALATION ×3 (08:27→20:34)
--- NOTE | 2022-07-31 08:29 | PC.PHAR ---
pt is from [facility] [phone]-magali vega from [facility] will fax mar and tar
[2022-07-31] MEDS: cefTRIAXone 1,000 MG in sodium chloride 0.9% (plus) 50 ML 100 MG IV (08:35)
[2022-07-31 09:03] LABS: Troponin 5 2HR 125.5 ng/L (0-10); Troponin 5 2HR Delta 11.5 ABS# (0-10)
--- NOTE | 2022-07-31 11:03 | ECG_ITS ---
[facility] Test Date: 2022-07-31 Pat Name: Michelle Becerra Department: Room: 258 Gender: Female Forensic Document Examiner: : 1945 Requested By: Gagan Albright Order Number: [id number] Deb MD: Yulissa Colon M.D. Measurements Intervals [place] Rate: 73 P: 25 [place]: 171 QRS: -2 QRSD: 89 T: 69 QT: 397 QTc: 438 Interpretive Statements SINUS RHYTHM WITH OCCASIONAL SUPRAVENTRICULAR PREMATURE COMPLEXES Compared to ECG 07/31/2022 08:33:48 No significant changes Electronically Signed On 07-31-2022 21:29:27 CDT by Yulissa Colon M.D. [email or web address] medical [facility], avonIndependent IP/store/OM/[id number]
[2022-07-31 12:17] LABS: Glucose Point of Care 176 mg/dL (70-110)
[2022-07-31 13:02] LABS: Troponin 5 6HR Delta -4.9 ng/L (0-12)
[2022-07-31 14:05] LABS: Troponin 5 6HR 109.1 ng/L (0-10)
--- NOTE | 2022-07-31 14:19 | USCV_ITS ---
Becerra Michelle Age: 77 Gender: F : 1945 Exam Date: 07/31/2022 16:02 Ordering Phys: Sultana Quiroz MD Technologist: JESSICA [place] [facility] [place]: [place]STEMI BP: 137 / 72 HR: 71 Rhythm: Sinus Technical Quality: Adequate MEASUREMENTS (Male / Female) Normal Values 2D ECHO LVOT Diameter 2.0 cm LV Ejection Fraction MOD 2C 68.6 % LV Ejection Fraction 2C AL 68.7 % LA Diameter 2.9 cm LA Width 2.9 cm LA Height 5.0 cm RA Width 3.5 cm RA Height 4.5 cm Aorta at Sinotubular Diameter 1.7 cm IVC Diameter 1.6 cm M-MODE Aortic Annulus Diameter 2.3 cm LA Ao Ratio MM 1.2 MV E Point Septal Separation 0.4 cm DOPPLER AV Peak Velocity 264.7 cm/s LVOT Peak Velocity 108.0 cm/s AV Area Cont Eq vti 1.3 cm squared AV Area Cont Eq pk 1.3 cm squared MV Peak Velocity 136.0 cm/s MV Area PHT 2.1 cm squared Mitral E to A Ratio 0.8 MV E' Velocity 48.4 cm/s Mitral E to MV E' Ratio 15.6 Mitral E to LV E' Lateral Ratio 13.8 Mitral E to LV E' Septal Ratio 18.2 TR Peak Velocity 229.0 cm/s TR Peak Gradient 21.0 mmHg TV Peak E Velocity 49.0 cm/s Right Atrial Pressure 3.0 mmHg Pulmonary Artery Systolic Pressu 24.0 mmHg PV Peak Velocity 173.0 cm/s RV Acceleration Time 0.1 s RV Ejection Time 0.4 s RV AcT/ET 0.3 FINDINGS Left Ventricle Technically limited quality echocardiogram because of poor ultrasonic windows. Left ventricle is normal in size. LV systolic function is normal with EF of 60-65 %. No regional wall motion abnormalities. Grade 1 diastolic dysfunction. Right Ventricle Normal in size and function Right Atrium normal in size Left Atrium Normal in size Mitral Valve Moderate to severe mitral annular calcification is seen. Mild mitral regurgitation Aortic Valve Not well-visualized. Mild aortic stenosis is seen with aortic valve area of 1.32 cm squared and mean gradient across aortic valve of 13.5 mmHg. Tricuspid Valve Mild tricuspid regurgitation. Pulmonary artery systolic pressure is normal. Pulmonic Valve Not well-visualized Pericardium Grossly normal Aorta Normal in size IVC Appears to be normal. CONCLUSIONS Technically limited quality echocardiogram because of poor ultrasonic windows. LV systolic function is normal with EF of 60 to 65%. Grade 1 diastolic dysfunction Mild mitral regurgitation Mild aortic stenosis Mild tricuspid regurgitation Compared to prior echocardiogram from 2019, patient now has mild aortic stenosis. Len Quesada MD (Electronically Signed) Final Date: 31 Jul 2022 18:33 S
--- NOTE | 2022-07-31 15:48 | PM.MISC ---
Miscellaneous Note Note: overnight labs and h&P reviewed. trop series with delta 11.5 at 2 hrs, -4 at 6 hrs. trend 114 --> 125---> 109 Labs suggestive of NSTEMI vs type 2 [place] from CHF start lovenox 1mg/kg every 12 hrs obtain echocardiogram Last angiogram 2019 with clean coronaries ABG improving with Bipap continue lasix, place guillen for I/O monitoring consult cardiology once more stable from a respiratory standpoint. Will be unable to tolerate stress test or angiogram at this time, unable to lie flat
[2022-07-31 17:05] LABS: Glucose Point of Care 136 mg/dL (70-110)
[2022-07-31] MEDS: ferrous sulfate EC 325 mg Tablet PO (17:22)
[2022-07-31] MEDS: enoxaparin 100 mg/mL Syringe 90 MG SUBCUT (17:22)
[2022-07-31] MEDS: atorvastatin 40 mg Tablet PO (21:15)
[2022-07-31] MEDS: acetaminophen 325 mg Tablet 650 MG PO (21:15)
[2022-07-31 21:16] LABS: Glucose Point of Care 111 mg/dL (70-110)
[2022-08-01] VITALS (14 sets, daily range): BP systolic 112–137; BP diastolic 52–75; PULSE 62–87; RESP 16–21; TEMP 36.5–36.8; O2SAT 95–99
[2022-08-01] MEDS: pantoprazole 40 mg SDV IVP (05:35)
[2022-08-01] MEDS: dexamethasone 10 mg/mL INJ 6 MG IVP (05:35)
[2022-08-01 05:37] LABS: Basophils % 0.1 %; Eosinophils % 0.4 %; Hematocrit 31.5 % (37.0-47.0); Hemoglobin 9.8 g/dL (11.5-15.3); Lymphocytes # 0.7 10^3/uL (0.8-4.8); Lymphocytes % 8.9 %; Mean Corpuscular HGB Conc 31.1 g/dL (30.0-36.0); Mean Corpuscular Hemoglobin 26.3 pg (28.0-34.0); Mean Corpuscular Volume 84.5 fl (81-99); Mean Platelet Volume 9.4 fL (7.4-10.4); Monocytes # 0.4 10^3/uL (0.2-0.9); Monocytes % 5.8 %; Neutrophils # 6.36 10^3/uL (1.8-7.7); Neutrophils % 84.4 %; Nucleated Red Blood Cells % 0 %; Platelet Count 184 10^3/cmm (130-400); Red Blood Count 3.73 10^6/uL (4.1-5.3); Red Cell Distribution Width 16.6 % (12.1-15.1); White Blood Count 7.5 10^3/uL (4.0-10.0)
[2022-08-01 06:02] LABS: Alanine Aminotransferase < 5 U/L (0-33); Albumin Level 3.2 g/dL (3.5-5.2); Alkaline Phosphatase 80 U/L (35-105); Anion Gap 13.7 (5-19); Aspartate Amino Transferase 9 U/L (0-32); Blood Urea Nitrogen 19 mg/dL (8-23); Calcium 7.9 mg/dL (8.5-10.5); Carbon Dioxide 35 mmol/L (22-29); Chloride 96 mmol/L (98-107); Globulin 2.9 g/dL (1.3-4.6); Glucose 95 mg/dL (65-115); Osmolality Calculated 294 mOsm/kg (285-295); Potassium 3.7 mmol/L (3.5-5.1); Sodium 141 mmol/L (136-145); Total Bilirubin 0.4 mg/dL (0.15-1.2); Total Protein 6.1 g/dL (6.6-8.7)
[2022-08-01] MEDS: azithromycin 500 MG in sodium chloride 0.9% 250 ML 250 MG IV (06:03)
[2022-08-01] MEDS: enoxaparin 100 mg/mL Syringe 90 MG SUBCUT ×2 (06:03→17:07)
[2022-08-01 06:04] LABS: Creatinine Clr Calc Pharmacy 48.5625
[2022-08-01 06:47] LABS: Glucose Point of Care 107 mg/dL (70-110)
[2022-08-01] MEDS: budesonide 0.5 mg/2 mL Neb INHALATION ×2 (07:55→21:29)
[2022-08-01] MEDS: ipratropium-albuterol 3 mL Neb INHALATION ×4 (07:56→21:29)
[2022-08-01 08:03] LABS: Adenovirus Not Detected (NOT DETECT); Chlamydia Pneumoniae Not Detected (NOT DETECT); Coronavirus 229E,HKU1,NL63,OC4 Not Detected (NOT DETECT); Human Metapneumovirus Not Detected (NOT DETECT); Human Rhinovirus/Enterovirus Not Detected (NOT DETECT); Influenza A Not Detected (NOT DETECT); Influenza A H1 Not Detected (NOT DETECT); Influenza A H1-2009 Not Detected (NOT DETECT); Influenza A H3 Not Detected (NOT DETECT); Influenza B Not Detected (NOT DETECT); Mycoplasma Pneumoniae Not Detected (NOT DETECT); Parainfluenza Virus Type 1 Not Detected (NOT DETECT); Parainfluenza Virus Type 2 Not Detected (NOT DETECT); Parainfluenza Virus Type 3 Not Detected (NOT DETECT); Parainfluenza Virus Type 4 Not Detected (NOT DETECT); Respiratory Syncytial Virus A Not Detected (NOT DETECT); Respiratory Syncytial Virus B Not Detected (NOT DETECT); SARS-COV-2 Not Detected (NOT DETECT)
[2022-08-01] MEDS: sertraline 100 mg Tablet PO (08:08)
[2022-08-01] MEDS: ferrous sulfate EC 325 mg Tablet PO ×2 (08:08→17:08)
[2022-08-01] MEDS: cefTRIAXone 1,000 MG in sodium chloride 0.9% (plus) 50 ML 100 MG IV (08:08)
[2022-08-01] MEDS: folic acid 1 mg Tablet PO (08:08)
[2022-08-01] MEDS: aspirin 81 mg EC Tablet PO (08:08)
[2022-08-01] MEDS: FUROsemide 10 mg/mL SDV 4mL 40 MG IVP ×2 (08:09→22:07)
[2022-08-01] MEDS: levothyroxine 200 mcg Tablet PO (08:11)
--- NOTE | 2022-08-01 10:08 | PC.CHAP ---
Pastoral Care Encounter/Spiritual Assessment Type of Contact [] Declined mover visit [] Patient/Family/Request visit [] Outpatient visit [] Follow-up visit [] Physician referral [] Code/Alert [x] Routine visit [] Staff referral [] Actively dying [] Patient sleeping [] Family support [] [] Out of room [] Palliative care [] [] Receiving care in room [] Pre-surgical visit [] Trauma [] Long length of stay [] ICU visit [] Other: Relational/Emotional Strength [] Patient feels connected with others/family/visitors/staff [] Distress [] Loneliness/isolation [] Abandonment Spirituality of Patient [] Person of Jaky [] Attends Orthodoxy of their Jaky [x] Believes in Prayer [] Reads Bible or Roman Catholic materials [] There are Spiritual issues to be addressed Applications Programmer Interventions [x] Prayer [] Active listening [] Non-anxious presence [] Spiritual/emotional support [] Crisis/trauma care [] Spiritual counseling [] Bereavement support [] Provided bereavement packet [] Provided Bible/devotional materials [] Provided toy/stuffed animal, coloring book to patient or family member [] Provided Communion [] Anointing/[place] [] Salvation [] Completed spiritual assessment [] Other: Impact on Illness or Injury [] Angry [] Fearful [] Anxious [] Often cries [] Exhaustion [] Unable to work [] Unable to attend sabianism [] Unable to walk/stand [] Unable to read [] Unable to drive [] Unable to eat/drink [] Unable to sleep [] Unable to be with family [] Patient intubated [] Other: Summary Time spent with patient 5 min
[2022-08-01 11:56] LABS: Glucose Point of Care 171 mg/dL (70-110)
[2022-08-01 13:29] LABS: Oxygen Device NRB
--- NOTE | 2022-08-01 16:33 | PM.PN ---
Subjective Subjective: patient breathing more comfortably today, sitting in a recliner for most of the day, crepts are imporved. LE edema is improving She is still mildly tachypneic in conversation. Denies any chest pain Vitals/I&O/Wt Last Vital Signs Temp 97.7 F 08/01/22 12:00 Pulse 72 08/01/22 15:12 Resp 16 08/01/22 15:07 BP 137/75 08/01/22 12:00 Pulse Ox 98 08/01/22 15:07 O2 Del Method Nasal Cannula 08/01/22 15:07 O2 Flow Rate 2 08/01/22 15:07 FiO2 30 07/31/22 22:32 08/01/22 08/01/22 08/01/22 06:59 14:59 22:59 Intake Total 1020 / 1020 Output Total 850 / 1000 Balance -850 / 20 1020 / 1020 Weight last 48 hrs Weight 90.718 kg Physical Exam Narrative: General: No acute distress, AO x3 HEENT: PERRLA, pupils bilaterally equal and reactive, pallors not present Chest: wheezing to ausculattion B/L CVS: S1-S2 regular, no murmurs, no tachycardia, no gallops, no rubs Abdomen: Soft, nontender, no organomegaly, bowel sounds present Neuro: No focal deficits, no facial deformity, AO x3, power 5/5 in all limbs Extremities: improving edema Urinary Catheter Management: Mann: Cath Placed During This Visit: yes Reason for Continuing Indwelling Catheter: Other Urinary Catheter Date of Insertion: 07/31/22 Urinary Catheter Time of Insertion: 15:55 Data 08/02/22 11:13 08/02/22 11:13 A&P Assessment and plan (1) Respiratory failure with hypoxia and hypercapnia: (2) Acute exacerbation of chronic obstructive airways disease: (3) Pneumonia: (4) CHF exacerbation: (5) Acute encephalopathy: Plan # Acute hypoxic hypercarbic respiratory failure -Secondary to pneumonia, -Secondary to COPD exacerbation -Secondary to CHF -Continue Rocephin, continue azithromycin -Continue Decadron -Lasix 40 IV daily -Serial EKGs, serial troponins, telemetry monitoring -DuoNebs -Budesonide -DNR/DNI -Lovenox for DVT prophylaxis # NSTEMI vs type 2 [place] continue lovenox , ASA, atorvastatin Echo without joshua wall motion abnormalities Will plan for stress test once resp status optimized last angio 2019 without obstructive CAD Acute encephalopathy with underlying dementia, currently back at baseline. AAO x 3 Ves-iflwyfy-uhtywirgz type 2 diabetes mellitus, continue ISS Attestations Medical Necessity Statement*: needs optimization of respiratory status Coding Level of Care Code Acute Code for Chg Fwd Diagnoses Respiratory failure with hypoxia and hypercapnia J96.91; J96.92 Acute exacerbation of chronic obstructive airways disease J44.1 Pneumonia J18.9 CHF exacerbation I50.9 Acute encephalopathy G93.40
[2022-08-01 17:06] LABS: Glucose Point of Care 149 mg/dL (70-110)
[2022-08-01 21:48] LABS: Glucose Point of Care 109 mg/dL (70-110)
[2022-08-01] MEDS: atorvastatin 40 mg Tablet PO (22:00)
[2022-08-01] MEDS: acetaminophen 325 mg Tablet 650 MG PO (22:00)
[2022-08-02] VITALS (15 sets, daily range): BP systolic 114–138; BP diastolic 58–76; PULSE 62–81; RESP 16–19; TEMP 36.5–36.9; O2SAT 91–99
[2022-08-02] MEDS: enoxaparin 100 mg/mL Syringe 90 MG SUBCUT ×2 (06:10→17:20)
[2022-08-02] MEDS: azithromycin 500 MG in sodium chloride 0.9% 250 ML 250 MG IV (06:10)
[2022-08-02] MEDS: dexamethasone 10 mg/mL INJ 6 MG IVP ×2 (06:39→17:23)
[2022-08-02] MEDS: pantoprazole 40 mg SDV IVP (06:39)
[2022-08-02 06:48] LABS: Glucose Point of Care 115 mg/dL (70-110)
[2022-08-02] MEDS: ipratropium-albuterol 3 mL Neb INHALATION ×4 (08:03→19:46)
[2022-08-02] MEDS: budesonide 0.5 mg/2 mL Neb INHALATION ×2 (08:03→19:45)
[2022-08-02] MEDS: ferrous sulfate EC 325 mg Tablet PO ×2 (08:40→17:20)
[2022-08-02] MEDS: aspirin 81 mg EC Tablet PO (08:40)
[2022-08-02] MEDS: folic acid 1 mg Tablet PO (08:40)
[2022-08-02] MEDS: sertraline 100 mg Tablet PO (08:41)
[2022-08-02] MEDS: levothyroxine 200 mcg Tablet PO (08:41)
[2022-08-02] MEDS: cefTRIAXone 1,000 MG in sodium chloride 0.9% (plus) 50 ML 100 MG IV (08:42)
[2022-08-02] MEDS: FUROsemide 10 mg/mL SDV 4mL 40 MG IVP ×2 (08:44→20:03)
[2022-08-02 10:34] LABS: Blood Gas Sample Site Not specified
[2022-08-02 11:53] LABS: Basophils % 0.1 %; Eosinophils % 0.1 %; Hematocrit 37.7 % (37.0-47.0); Hemoglobin 11.6 g/dL (11.5-15.3); Lymphocytes # 0.3 10^3/uL (0.8-4.8); Lymphocytes % 3.4 %; Mean Corpuscular HGB Conc 30.8 g/dL (30.0-36.0); Mean Corpuscular Hemoglobin 26.2 pg (28.0-34.0); Mean Corpuscular Volume 85.3 fl (81-99); Mean Platelet Volume 9.6 fL (7.4-10.4); Monocytes # 0.1 10^3/uL (0.2-0.9); Monocytes % 1.7 %; Neutrophils # 7.37 10^3/uL (1.8-7.7); Neutrophils % 94.2 %; Nucleated Red Blood Cells % 0 %; Platelet Count 231 10^3/cmm (130-400); Red Blood Count 4.42 10^6/uL (4.1-5.3); Red Cell Distribution Width 16.5 % (12.1-15.1); White Blood Count 7.8 10^3/uL (4.0-10.0)
[2022-08-02 12:17] LABS: Alanine Aminotransferase 7 U/L (0-33); Albumin Level 3.7 g/dL (3.5-5.2); Alkaline Phosphatase 85 U/L (35-105); Blood Urea Nitrogen 21 mg/dL (8-23); Calcium 7.6 mg/dL (8.5-10.5); Carbon Dioxide 31 mmol/L (22-29); Chloride 91 mmol/L (98-107); Globulin 3.4 g/dL (1.3-4.6); Glucose 142 mg/dL (65-115); Osmolality Calculated 287 mOsm/kg (285-295); Sodium 136 mmol/L (136-145); Total Bilirubin 0.4 mg/dL (0.15-1.2); Total Protein 7.1 g/dL (6.6-8.7)
--- NOTE | 2022-08-02 12:28 | PM.PN ---
Subjective Subjective: She continues to feel better. Sitting in recliner, alert, awake, has wheezing to auscultation , net negative 600 cc Medications: Reviewed: Yes Vitals/I&O/Wt Last Vital Signs Temp 97.7 F 08/02/22 07:55 Pulse 68 08/02/22 11:48 Resp 18 08/02/22 11:39 BP 138/63 08/02/22 07:55 Pulse Ox 95 08/02/22 11:39 O2 Del Method Nasal Cannula 08/02/22 11:39 O2 Flow Rate 2 08/02/22 11:39 FiO2 30 07/31/22 22:32 08/01/22 08/02/22 08/02/22 22:59 06:59 14:59 Intake Total 720 / 1740 420 / 420 Output Total 1600 / 1600 1200 / 1200 Balance -880 / 140 -780 / -780 Physical Exam Narrative: General: No acute distress, AO x3 HEENT: PERRLA, pupils bilaterally equal and reactive, pallors not present Chest: wheezing to ausculattion B/L CVS: S1-S2 regular, no murmurs, no tachycardia, no gallops, no rubs Abdomen: Soft, nontender, no organomegaly, bowel sounds present Neuro: No focal deficits, no facial deformity, AO x3, power 5/5 in all limbs Extremities: improving edema Urinary Catheter Management: Mann: Cath Placed During This Visit: yes Reason for Continuing Indwelling Catheter: Other Urinary Catheter Date of Insertion: 07/31/22 Urinary Catheter Time of Insertion: 15:55 Data 08/02/22 11:13 08/02/22 11:13 A&P Assessment and plan (1) Respiratory failure with hypoxia and hypercapnia: (2) Acute exacerbation of chronic obstructive airways disease: (3) Pneumonia: (4) CHF exacerbation: (5) Acute encephalopathy: Plan # Acute hypoxic hypercarbic respiratory failure, mtulifactorial -Secondary to pneumonia, COPD exacerbation, CHF -Continue Rocephin, continue azithromycin -Continue Decadron, increase to 6mg iv q12h -Schdeuled DuoNebs and Budesonide # NSTEMI vs type 2 [place] continue lovenox 90 mg q12h , ASA, atorvastatin Echo without regional wall motion abnormalities Will plan for stress test once resp status optimized last angio 2019 without obstructive CAD # CHF with preserved ejection fraction, acute on chronic Lasix 40 mg iv q12h # Acute encephalopathy with underlying dementia, currently back at baseline. AAO x 3 #Tgt-ivhguur-ztgomwyyh type 2 diabetes mellitus, continue ISS , FS under good control Attestations Medical Necessity Statement*: continue iv diuresis, abx, await oprimization of resp status, planned stress test Coding Level of Care Code Acute Code for Chg Fwd Diagnoses Respiratory failure with hypoxia and hypercapnia J96.91; J96.92 Acute exacerbation of chronic obstructive airways disease J44.1 Pneumonia J18.9 CHF exacerbation I50.9 Acute encephalopathy G93.40
[2022-08-02 12:29] LABS: Anion Gap 18.2 (5-19); Aspartate Amino Transferase 13 U/L (0-32); Potassium 4.2 mmol/L (3.5-5.1)
[2022-08-02 12:45] LABS: Glucose Point of Care 184 mg/dL (70-110)
[2022-08-02 17:10] LABS: Glucose Point of Care 423 mg/dL (70-110)
[2022-08-02] MEDS: insulin lispro 100 unit/1 mL SUBCUT (17:22)
[2022-08-02] MEDS: atorvastatin 40 mg Tablet PO (20:03)
[2022-08-02 21:27] LABS: Glucose Point of Care 69 mg/dL (70-110)
[2022-08-03] VITALS (14 sets, daily range): BP systolic 114–142; BP diastolic 53–76; PULSE 58–77; RESP 16–26; TEMP 36.3–36.7; O2SAT 95–100
[2022-08-03 04:55] LABS: Hematocrit 35.5 % (37.0-47.0); Lymphocytes # 0.4 10^3/uL (0.8-4.8); Lymphocytes % 5.9 %; Mean Corpuscular Volume 83.9 fl (81-99); Mean Platelet Volume 9.5 fL (7.4-10.4); Monocytes # 0.2 10^3/uL (0.2-0.9); Monocytes % 3.3 %; Neutrophils # 6.26 10^3/uL (1.8-7.7); Neutrophils % 90.4 %; Nucleated Red Blood Cells % 0 %; Platelet Count 264 10^3/cmm (130-400); Red Blood Count 4.23 10^6/uL (4.1-5.3); Red Cell Distribution Width 16.3 % (12.1-15.1); White Blood Count 6.9 10^3/uL (4.0-10.0)
[2022-08-03 05:08] LABS: Alanine Aminotransferase < 5 U/L (0-33); Albumin Level 3.4 g/dL (3.5-5.2); Alkaline Phosphatase 80 U/L (35-105); Anion Gap 15.7 (5-19); Aspartate Amino Transferase 10 U/L (0-32); Blood Urea Nitrogen 23 mg/dL (8-23); Calcium 7.6 mg/dL (8.5-10.5); Carbon Dioxide 35 mmol/L (22-29); Chloride 89 mmol/L (98-107); Globulin 3.2 g/dL (1.3-4.6); Glucose 113 mg/dL (65-115); Osmolality Calculated 286 mOsm/kg (285-295); Potassium 3.7 mmol/L (3.5-5.1); Sodium 136 mmol/L (136-145); Total Bilirubin 0.4 mg/dL (0.15-1.2); Total Protein 6.6 g/dL (6.6-8.7)
[2022-08-03] MEDS: dexamethasone 10 mg/mL INJ 6 MG IVP ×2 (05:44→17:58)
[2022-08-03] MEDS: pantoprazole 40 mg SDV IVP (05:44)
[2022-08-03] MEDS: azithromycin 500 MG in sodium chloride 0.9% 250 ML 250 MG IV (05:45)
[2022-08-03] MEDS: enoxaparin 100 mg/mL Syringe 90 MG SUBCUT ×2 (05:45→17:13)
[2022-08-03 06:39] LABS: Glucose Point of Care 139 mg/dL (70-110)
[2022-08-03] MEDS: ipratropium-albuterol 3 mL Neb INHALATION ×4 (07:32→19:59)
[2022-08-03] MEDS: budesonide 0.5 mg/2 mL Neb INHALATION ×2 (07:32→19:59)
[2022-08-03] MEDS: aspirin 81 mg EC Tablet PO (09:14)
[2022-08-03] MEDS: ferrous sulfate EC 325 mg Tablet PO ×2 (09:14→17:13)
[2022-08-03] MEDS: cefTRIAXone 1,000 MG in sodium chloride 0.9% (plus) 50 ML 100 MG IV (09:14)
[2022-08-03] MEDS: sertraline 100 mg Tablet PO (09:14)
[2022-08-03] MEDS: levothyroxine 200 mcg Tablet PO (09:14)
[2022-08-03] MEDS: folic acid 1 mg Tablet PO (09:14)
[2022-08-03] MEDS: FUROsemide 10 mg/mL SDV 4mL 40 MG IVP (10:12)
--- NOTE | 2022-08-03 10:34 | PC.SOCIAL ---
IMM Update pg 2 of IMM updated and reviewed w/ patient. Copy provided and Copy dated, initialed and placed in chart.
[2022-08-03 12:22] LABS: Glucose Point of Care 209 mg/dL (70-110)
[2022-08-03] MEDS: insulin lispro 100 unit/1 mL SUBCUT ×2 (12:40→17:13)
--- NOTE | 2022-08-03 16:21 | ECG_ITS ---
[facility] Test Date: 2022-08-04 Pat Name: Michelle Becerra Department: Room: 258 Gender: Female Analytics Analyst: : 1945 Requested By: Sultana Quiroz Order Number: [id number] Deb MD: Yulissa Colon M.D. Interpretive Statements NAME OF STUDY: LEXISCAN SESTAMIBI STRESS TEST INDICATION: Elevated Troponin, PROCEDURE: At the baseline, the EKG revealed normal sinus rhythm with a normal ST Ts. The baseline heart was 63 bpm with a blood pressue of 109/66 mm of Hg Lexiscan was infused over a period of 20 seconds. A total of 0.4 milligrams of Lexiscan was infused. The stress phase was continued for a total of 5 minutes. Heart rate at the end of the stress phase was 77 bpm with a blood pressure 121/59 mm of Hg. The EKG at the peak infusion revealed no significant changes. Sestamibi was injected 20 seconds after the Lexiscan infusion. Heart rate at the end of the recovery phase was 85 bpm with a blood pressure of 120/82 mm of Hg. CONCLUSION: 1. No significant EKG changes with the LexiScan infusion 2. No LexiScan induced chest pain or cardiac arrhythmia 3. Normal blood pressure and heart rate response 4. Sestamibi/sestamibi perfusion scan pending; see separate report. Electronically Signed On 08-05-2022 20:35:22 CDT by Yulissa Colon M.D. [id number]
--- NOTE | 2022-08-03 16:23 | P.PN_ITS ---
Subjective Subjective: continues to feel like breathing is improving. Wheezing is improving since increasing steroids Medications: Reviewed: Yes Vitals/I&O/Wt Last Vital Signs Temp 98.0 F 08/03/22 15:43 Pulse 70 08/03/22 16:00 Resp 19 H 08/03/22 16:00 BP 120/53 08/03/22 15:43 Pulse Ox 99 08/03/22 16:00 O2 Del Method Nasal Cannula 08/03/22 16:00 O2 Flow Rate 2 08/03/22 16:00 FiO2 30 07/31/22 22:32 08/03/22 08/03/22 08/03/22 06:59 14:59 22:59 Intake Total 900 / 900 Output Total 1550 / 2750 Balance -1550 / -1850 900 / 900 Physical Exam Narrative: General: No acute distress, AO x3 HEENT: PERRLA, pupils bilaterally equal and reactive, pallors not present Chest: wheezing to ausculattion B/L CVS: S1-S2 regular, no murmurs, no tachycardia, no gallops, no rubs Abdomen: Soft, nontender, no organomegaly, bowel sounds present Neuro: No focal deficits, no facial deformity, AO x3, power 5/5 in all limbs Extremities: improving edema Urinary Catheter Management: Mann: Cath Placed During This Visit: yes Reason for Continuing Indwelling Catheter: Accurate Measurement of Urinary Output in Critically Ill Patients Urinary Catheter Date of Insertion: 07/31/22 Urinary Catheter Time of Insertion: 15:55 Data 08/03/22 04:09 08/03/22 04:09 A&P Assessment and plan (1) Respiratory failure with hypoxia and hypercapnia: (2) Acute exacerbation of chronic obstructive airways disease: (3) Pneumonia: (4) CHF exacerbation: (5) Acute encephalopathy: Plan # Acute hypoxic hypercarbic respiratory failure, mtulifactorial -Secondary to pneumonia, COPD exacerbation, CHF -Continue Rocephin, completed 3 days azithromycin -Continue Decadron 6mg iv q12h -Schdeuled DuoNebs and Budesonide to continue # NSTEMI vs type 2 DE continue lovenox 90 mg q12h , ASA, atorvastatin Echo without regional wall motion abnormalities trop 114-->125--> 109 Will plan for stress test in am last angio 2019 without obstructive CAD # CHF with preserved ejection fraction, acute on chronic Lasix 40 mg iv q12h ---> change lasix to 40 mg po BID montior urine output an drenal function ; net negative 700 cc # Acute encephalopathy with underlying dementia, currently back at baseline. AAO x 3 #Xwr-ayapfny-stxaulpbc type 2 diabetes mellitus, continue ISS , FS under good control Attestations Medical Necessity Statement*: change lasix to po, stress test in am Coding Level of Care Code Acute Code for [facility] Diagnoses Respiratory failure with hypoxia and hypercapnia J96.91; J96.92 Acute exacerbation of chronic obstructive airways disease J44.1 Pneumonia J18.9 CHF exacerbation I50.9 Acute encephalopathy G93.40
[2022-08-03 16:43] LABS: Glucose Point of Care 145 mg/dL (70-110)
[2022-08-03] MEDS: atorvastatin 40 mg Tablet PO (21:06)
[2022-08-03 21:30] LABS: Glucose Point of Care 160 mg/dL (70-110)
[2022-08-03 22:29] LABS: Glucose Point of Care 280 mg/dL (70-110)
[2022-08-03] MEDS: CLONazepam 1 mg Tablet PO (22:43)
[2022-08-04] VITALS (13 sets, daily range): BP systolic 109–132; BP diastolic 62–82; PULSE 61–113; RESP 16–21; TEMP 36.5–36.8; O2SAT 95–100
[2022-08-04] MEDS: pantoprazole 40 mg SDV IVP (05:51)
[2022-08-04] MEDS: dexamethasone 10 mg/mL INJ 6 MG IVP ×2 (05:51→17:11)
[2022-08-04] MEDS: enoxaparin 100 mg/mL Syringe 90 MG SUBCUT ×2 (05:52→17:11)
[2022-08-04 06:07] LABS: Basophils % 0.1 %; Eosinophils % 0.1 %; Hematocrit 34.9 % (37.0-47.0); Hemoglobin 10.8 g/dL (11.5-15.3); Lymphocytes # 0.6 10^3/uL (0.8-4.8); Lymphocytes % 6.9 %; Mean Corpuscular HGB Conc 30.9 g/dL (30.0-36.0); Mean Corpuscular Hemoglobin 25.8 pg (28.0-34.0); Mean Corpuscular Volume 83.5 fl (81-99); Mean Platelet Volume 9.4 fL (7.4-10.4); Monocytes # 0.4 10^3/uL (0.2-0.9); Monocytes % 4.4 %; Neutrophils # 7.02 10^3/uL (1.8-7.7); Neutrophils % 87.7 %; Nucleated Red Blood Cells % 0 %; Platelet Count 279 10^3/cmm (130-400); Red Blood Count 4.18 10^6/uL (4.1-5.3); Red Cell Distribution Width 16.2 % (12.1-15.1)
[2022-08-04 06:12] LABS: Alanine Aminotransferase 9 U/L (0-33); Albumin Level 3.4 g/dL (3.5-5.2); Alkaline Phosphatase 79 U/L (35-105); Anion Gap 15.2 (5-19); Aspartate Amino Transferase 15 U/L (0-32); Blood Urea Nitrogen 22 mg/dL (8-23); Calcium 7.2 mg/dL (8.5-10.5); Carbon Dioxide 34 mmol/L (22-29); Chloride 85 mmol/L (98-107); Glucose 102 mg/dL (65-115); Osmolality Calculated 276 mOsm/kg (285-295); Potassium 3.2 mmol/L (3.5-5.1); Sodium 131 mmol/L (136-145); Total Bilirubin 0.4 mg/dL (0.15-1.2); Total Protein 6.4 g/dL (6.6-8.7)
[2022-08-04 06:38] LABS: Glucose Point of Care 118 mg/dL (70-110)
[2022-08-04] MEDS: regadenoson 0.4 Mg/5 ml Syringe IVP (07:24)
--- NOTE | 2022-08-04 08:00 | NMCV_ITS ---
NM leonidas perf SPECT r/s* [id number] Michelle Becerra Age: 77 Gender: F : 1945 Exam Date: 08/04/2022 06:36 Ordering Phys: Sultana Quiroz MD Technologist: KRYSTEN Don Exam Location: [facility] Indications: CHEST PAIN STRESS TEST Please see separate stress test report in [facility] for full findings IMAGE PROTOCOL Rest/Stress 1 Lexiscan Day Radiopharmaceutical Dose (mCi) Administration Site Administered by Rest: Tc-99m 10.6 IV KRYSTEN Mccracken Sestamibi Stress:Tc-99m 33.0 IV KRYSTEN Mccracken Sestamibi Rest: 04-Aug-2022 60 Discovery 630 Stress: 04-Aug-2022 30 Discovery 630 0.4mg Lexiscan. Supine position only as patient was unable to lay prone. SPECT RESULTS Technical Quality: Excellent Raw Data Analysis: Normal Image Corrections: No attenuation or motion correction applied Summed Stress Score: 5 Summed Rest Score: 11 Summed Difference Score: 0 PERFUSION FINDINGS Moderate area of minimal to moderately decreased tracer uptake in the mid and apical inferior, mid inferolateral and apical lateral regions with no significant reversibility FUNCTIONAL RESULTS (calculated via Gated SPECT) Stress Image LV EF (%): 82 Stress EDV (mL):77 TID: 0.98 Stress ESV (mL):14 FUNCTIONAL FINDINGS: Segmental wall motion analysis revealing no gross wall motion normalities IMPRESSIONS 1. Myocardial perfusion imaging revealing moderate area of minimal to moderately decreased tracer uptake in the inferior, inferolateral and apical lateral regions with no significant reversibility, suggesting myocardial scarring in the distribution of the right coronary artery and circumflex artery. 2. Normal LV ejection fraction 82%. 3. LV wall motion analysis revealing no gross wall motion abnormalities. 4. Normal LV volume Low probability for coronary ischemia, based on the above findings. Compared to the study from 06/20/2019, currently there is no evidence of any significant ischemia Dr Yulissa Colon MD FAC (Electronically Signed) Final Date: 05 Aug 2022 00:02 S
[2022-08-04] MEDS: FUROsemide 40 mg Tablet PO ×2 (09:35→17:10)
[2022-08-04] MEDS: CLONazepam 0.5 mg Tablet PO ×2 (09:35→09:36)
[2022-08-04] MEDS: levothyroxine 200 mcg Tablet PO (09:35)
[2022-08-04] MEDS: folic acid 1 mg Tablet PO (09:35)
[2022-08-04] MEDS: sertraline 100 mg Tablet PO (09:35)
[2022-08-04] MEDS: ferrous sulfate EC 325 mg Tablet PO ×2 (09:35→17:12)
[2022-08-04] MEDS: aspirin 81 mg EC Tablet PO (09:35)
[2022-08-04] MEDS: cefTRIAXone 1,000 MG in sodium chloride 0.9% (plus) 50 ML 100 MG IV (09:36)
[2022-08-04] MEDS: ipratropium-albuterol 3 mL Neb INHALATION ×3 (11:20→19:50)
[2022-08-04 11:48] LABS: Glucose Point of Care 135 mg/dL (70-110)
--- NOTE | 2022-08-04 15:22 | PM.PN ---
Subjective Subjective: Patient was seen and examined this morning, denied any significant shortness of breath, chest pain. Underwent nuclear stress test, currently result is awaited. Medications: Reviewed: Yes Medication Review Details: Generic Name Dose Route Start Last Admin Trade Name Frerodriguez PRN Reason Stop Dose Admin Acetaminophen 650 mg 07/31/22 05:56 08/01/22 22:00 Acetaminophen 32 5 Mg Tablet PO 650 mg Q6H PRN Administration Mild/Mod Pain Or Temp >/= 101 Albuterol/Ipratrop ium 3 ml 07/31/22 08:00 08/04/22 11:20 Ipratropium-Albu terol 3 Ml Neb INHALATION 3 ml QID.RESPIRATORY S CH Administration Aspirin 81 mg 07/31/22 09:00 08/04/22 09:35 Aspirin 81 Mg Ec Tablet PO 81 mg DAILY KELLY Administration Atorvastatin Calci um 40 mg 07/31/22 21:00 08/03/22 21:06 Atorvastatin 40 Mg Tablet PO 40 mg BEDTIME KELLY Administration Budesonide 0.5 mg 07/31/22 08:00 08/04/22 07:56 Budesonide 0.5 M g/2 Ml Neb INHALATION Not Given BID.RESPIRATORY S CH Clonazepam 0.5 mg 08/04/22 08:00 08/04/22 09:36 Clonazepam 0.5 M g Tablet PO 0.5 mg DAILY KELLY Administration Clonazepam 1 mg 08/03/22 21:00 08/03/22 22:43 Clonazepam 1 Mg Tablet PO 1 mg BEDTIME KELLY Administration Dexamethasone 6 mg 08/02/22 17:00 08/04/22 05:51 Dexamethasone 10 Mg/Ml Inj IVP 6 mg Q12H KELLY Administration Enoxaparin Sodium 90 mg 07/31/22 18:00 08/04/22 05:52 Enoxaparin 100 M g/Ml Syringe 1 mg/kg (90 mg) 90 mg SUBCUT Administration Q12H KELLY Ferrous Sulfate 325 mg 07/31/22 08:00 08/04/22 09:35 Ferrous Sulfate Ec 325 Mg Tablet PO 325 mg BIDWM KELLY Administration Folic Acid 1 mg 07/31/22 09:00 08/04/22 09:35 Folic Acid 1 Mg Tablet PO 1 mg DAILY KELLY Administration Furosemide 40 mg 08/04/22 08:00 08/04/22 09:35 Furosemide 40 Mg Tablet PO 40 mg BID@08,16 KELLY Administration Ceftriaxone Sodium 1,000 mg/ 50 mls @ 100 mls/ hr 07/31/22 06:00 08/04/22 10:14 Sodium Chloride IV Infused Q24H KELLY Infusion Protocol Insulin Human Lisp ro 0 unit 07/31/22 08:00 08/04/22 11:56 Insulin Lispro 1 00 Unit/1 Ml SUBCUT Not Given [facility] Protocol Levothyroxine Sodi um 200 mcg 07/31/22 09:00 08/04/22 09:35 Levothyroxine 20 0 Mcg Tablet PO 200 mcg DAILY KELLY Administration Pantoprazole Sodiu m 40 mg 07/31/22 05:56 08/04/22 05:51 Pantoprazole 40 Mg Sdv IVP 40 mg Q24H KELLY Administration Sertraline HCl 100 mg 07/31/22 09:00 08/04/22 09:35 Sertraline 100 M g Tablet PO 100 mg DAILY KELLY Administration Vitals/I&O/Wt Last Vital Signs Temp 98.1 F 08/04/22 12:00 Pulse 61 08/04/22 12:00 Resp 18 08/04/22 12:00 BP 109/71 08/04/22 12:00 Pulse Ox 96 08/04/22 12:00 O2 Del Method Nasal Cannula 08/04/22 12:00 O2 Flow Rate 3 08/04/22 11:20 FiO2 30 07/31/22 22:32 08/04/22 08/04/22 08/04/22 06:59 14:59 22:59 Intake Total 530 / 530 Output Total 500 / 1950 Balance -500 / -330 530 / 530 Physical Exam Const: COMMON NORMALS: patient oriented x3 HENMT: COMMON NORMALS: normocephalic and atraumatic HEAD & SCALP: normocephalic and atraumatic Resp: COMMON NORMALS: clear to auscultation bilaterally AUSCULTATION: clear to auscultation bilaterally OTHER: Diminished air entry bilaterally Cardio: COMMON NORMALS: regular rate, regular rhythm, S1 normal heart sound present, S2 normal heart sound present, No gallops present (Cardio), No murmurs present (Cardio), No rub (Cardio) and Peripheral pulses 2+ throughout RATE: regular rate RHYTHM: regular rhythm HEART SOUNDS: S1 normal heart sound present and S2 normal heart sound present PERIPHERAL PULSES: Peripheral pulses 2+ throughout GI: COMMON NORMALS: Normal to inspection, nondistended, normoactive bowel sounds present, Soft to palpation, non-tender, No hepatosplenomegaly present and no masses AUSCULTATION: Yes normoactive bowel sounds PALPATION: Yes Soft to palpation and Yes No hepatosplenomegaly present RECTAL EXAM: deferred Extremity: COMMON NORMALS: no clubbing, cyanosis or edema and no pedal edema Neuro: COMMON NORMALS: patient oriented x3 Urinary Catheter Management: Mann: Cath Placed During This Visit: yes Reason for Continuing Indwelling Catheter: Other Urinary Catheter Date of Insertion: 07/31/22 Urinary Catheter Time of Insertion: 15:55 Data 08/04/22 05:14 08/04/22 05:14 A&P Assessment and plan (1) Respiratory failure with hypoxia and hypercapnia: (2) Acute exacerbation of chronic obstructive airways disease: (3) Pneumonia: (4) CHF exacerbation: (5) Acute encephalopathy: Plan # Acute hypoxic hypercarbic respiratory failure, mtulifactorial -Secondary to pneumonia, COPD exacerbation, CHF -Continue Rocephin, completed 3 days azithromycin -Continue Decadron 6mg iv q12h -Schdeuled DuoNebs and Budesonide to continue # NSTEMI vs type 2 [place] continue lovenox 90 mg q12h , ASA, atorvastatin Echo without regional wall motion abnormalities trop 114-->125--> 109 S/p nuclear stress test last angio 2019 without obstructive CAD # CHF with preserved ejection fraction, acute on chronic Lasix 40 mg iv q12h ---> change lasix to 40 mg po BID montior urine output an drenal function ; net negative 700 cc # Acute encephalopathy with underlying dementia, currently back at baseline. AAO x 3 #Tmz-yiiszkl-hywlwbhdm type 2 diabetes mellitus, continue ISS , FS under good control Attestations Medical Necessity Statement*: Needs to be in hospital for management of respiratory failure. Coding Level of Care Code Acute Code for [facility] Fwd Diagnoses Respiratory failure with hypoxia and hypercapnia J96.91; J96.92 Acute exacerbation of chronic obstructive airways disease J44.1 Pneumonia J18.9 CHF exacerbation I50.9 Acute encephalopathy G93.40
[2022-08-04 16:40] LABS: Glucose Point of Care 135 mg/dL (70-110)
[2022-08-04] MEDS: budesonide 0.5 mg/2 mL Neb INHALATION (19:50)
[2022-08-04] MEDS: atorvastatin 40 mg Tablet PO (21:11)
[2022-08-04] MEDS: CLONazepam 1 mg Tablet PO (21:11)
[2022-08-04 22:01] LABS: Glucose Point of Care 192 mg/dL (70-110)
[2022-08-05] VITALS (8 sets, daily range): BP systolic 126; BP diastolic 54–80; PULSE 58–73; RESP 16–20; TEMP 36.4–36.7; O2SAT 95–98
[2022-08-05] MEDS: dexamethasone 10 mg/mL INJ 6 MG IVP (04:15)
[2022-08-05] MEDS: enoxaparin 100 mg/mL Syringe 90 MG SUBCUT (05:33)
[2022-08-05] MEDS: pantoprazole 40 mg SDV IVP (05:33)
[2022-08-05 06:32] LABS: Glucose Point of Care 134 mg/dL (70-110)
[2022-08-05] MEDS: budesonide 0.5 mg/2 mL Neb INHALATION (07:45)
[2022-08-05] MEDS: ipratropium-albuterol 3 mL Neb INHALATION ×2 (07:45→11:18)
[2022-08-05] MEDS: ferrous sulfate EC 325 mg Tablet PO (08:47)
[2022-08-05] MEDS: sertraline 100 mg Tablet PO (08:47)
[2022-08-05] MEDS: folic acid 1 mg Tablet PO (08:47)
[2022-08-05] MEDS: CLONazepam 0.5 mg Tablet PO (08:47)
[2022-08-05] MEDS: cefTRIAXone 1,000 MG in sodium chloride 0.9% (plus) 50 ML 100 MG IV (08:47)
[2022-08-05] MEDS: aspirin 81 mg EC Tablet PO (08:47)
[2022-08-05] MEDS: levothyroxine 200 mcg Tablet PO (08:53)
[2022-08-05 10:06] LABS: SARS Covid-2 Antigen negative (Negative)
[2022-08-05] MEDS: FUROsemide 40 mg Tablet PO (10:32)
[2022-08-05] MEDS: potassium chloride ER 20 mEq Tablet 40 MEQ PO (10:32)
--- NOTE | 2022-08-05 11:12 | PC.SOCIAL ---
IMM Update pg 2 of IMM updated and reviewed w/ patients daughter. Copy left @ bedside and copy in chart dated and initialed.
--- NOTE | 2022-08-05 11:29 | PC.NURSE ---
This nurse called report at 1120 and spoke to nurses Yani and Iris at [facility]. All questions addressed and answered and let them know pt was leaving with guillen in place.
[2022-08-05 11:40] LABS: Glucose Point of Care 163 mg/dL (70-110)
--- NOTE | 2022-08-05 17:48 | PM.DCS ---
Discharge Providers Date of Admission: 07/31/22 03:49 Date of Discharge: August 05, 2022 Attending Provider at Admission: Gagan Albright MD Attending Provider at Discharge: Sinan Naranjo MD Primary Care Provider: Viktor Baker MD Diagnoses at Discharge Discharge Diagnosis (1) Respiratory failure with hypoxia and hypercapnia: Status: Acute (2) Acute exacerbation of chronic obstructive airways disease: Status: Acute (3) Pneumonia: Status: Acute (4) CHF exacerbation: Status: Acute (5) Acute encephalopathy: Status: Acute Reason for Visit Reason for Visit: RESP. DISTRESS Hospital Course Hospital Course 77 year old female with a past medical history of COPD, history of DVT, history of lbm-kihruqd-pargrvafs type 2 diabetes mellitus, hypertension, hypothyroidism, COPD, obesity, GEOVANNI, GERD, CKD, history of dementia, had COVID back in February, history of CAD, history of diastolic heart failure who presents to [facility] due to shortness of breath she was admitted for the management of acute on chronic hypoxic hypercapnic respiratory failure secondary to decompensated heart failure with preserved ejection fraction, COPD exacerbation and pneumonia, she was kept on ceftriaxone and Rocephin during the hospital stay for pneumonia and was discharged on p.o. levofloxacin, for decompensated heart failure she responded well to IV diuresis, discharged on p.o. Lasix 40 daily, for history of COPD exacerbation, she was initially placed on BiPAP, DuoNebs, steroids.During the hospital stay she was also managed for NSTEMI, likely type II NSTEMI, secondary to decompensated heart failure , pneumonia, 2D echo done during the hospital stay: Showed: LV systolic function is normal with EF of 60 to 65%.Grade 1 diastolic dysfunction,Mild mitral regurgitation, ?Mild aortic stenosis,?Mild tricuspid regurgitation.She also underwent nuclear stress test during the hospital stay: Which is suggestive of myocardial scarring in the distribution of RCA and LCx.Overall she responded well to above medical management at the time of discharge she was afebrile hemodynamically stable, denied any significant shortness of breath.She was [facility], she will continue to follow the PCP as outpatient. Physical Exam Const: COMMON NORMALS: patient oriented x3 HENMT: COMMON NORMALS: normocephalic and atraumatic HEAD & SCALP: normocephalic and atraumatic Resp: COMMON NORMALS: clear to auscultation bilaterally AUSCULTATION: clear to auscultation bilaterally OTHER: Diminished air entry bilaterally Cardio: COMMON NORMALS: regular rate, regular rhythm, S1 normal heart sound present, S2 normal heart sound present, No gallops present (Cardio), No murmurs present (Cardio), No rub (Cardio) and Peripheral pulses 2+ throughout RATE: regular rate RHYTHM: regular rhythm HEART SOUNDS: S1 normal heart sound present and S2 normal heart sound present PERIPHERAL PULSES: Peripheral pulses 2+ throughout GI: COMMON NORMALS: Normal to inspection, nondistended, normoactive bowel sounds present, Soft to palpation, non-tender, No hepatosplenomegaly present and no masses AUSCULTATION: Yes normoactive bowel sounds PALPATION: Yes Soft to palpation and Yes No hepatosplenomegaly present RECTAL EXAM: deferred Extremity: COMMON NORMALS: no clubbing, cyanosis or edema and no pedal edema Neuro: COMMON NORMALS: patient oriented x3 Urinary Catheter Management: Mann: Cath Placed During This Visit: yes Reason for Continuing Indwelling Catheter: Other Urinary Catheter Date of Insertion: 07/31/22 Urinary Catheter Time of Insertion: 15:55 Discharge Data Studies Completed and Pending Completed Studies During Hospitalization Category Date Time Status Cardiac Stress Test MIBI [Sestamibi Stress Test Request Exams 08/03/22 16:21 Draft ] Routine XR chest 1V portable [id number] Stat Exams 07/31/22 02:45 Completed NM leonidas perf SPECT r/s* [id number] Routine Nuc Med 08/04/22 08:00 Completed CV. echo complete* [id number] Routine Ultrasound 07/31/22 14:19 Completed Radiology Impressions Chest X-Ray 07/31/22 02:45 IMPRESSION: No acute findings. Laboratory Results WBC 8.0 10^3/uL (4.0-10.0) 08/04/22 05:14 RBC 4.18 10^6/uL (4.1-5.3) 08/04/22 05:14 Hgb 10.8 g/dL (11.5-15.3) L 08/04/22 05:14 Hct 34.9 % (37.0-47.0) L 08/04/22 05:14 MCV 83.5 fl (81-99) 08/04/22 05:14 MCH 25.8 pg (28.0-34.0) L 08/04/22 05:14 MCHC 30.9 g/dL (30.0-36.0) 08/04/22 05:14 RDW 16.2 % (12.1-15.1) H 08/04/22 05:14 Plt Count 279 10^3/cmm (130-400) 08/04/22 05:14 MPV 9.4 fL (7.4-10.4) 08/04/22 05:14 Neut % (Auto) 87.7 % 08/04/22 05:14 Lymph % (Auto) 6.9 % 08/04/22 05:14 [place] % (Auto) 4.4 % 08/04/22 05:14 Eos % (Auto) 0.1 % 08/04/22 05:14 Baso % (Auto) 0.1 % 08/04/22 05:14 Neut # (Auto) 7.02 10^3/uL (1.8-7.7) 08/04/22 05:14 Lymph # (Auto) 0.6 10^3/uL (0.8-4.8) L 08/04/22 05:14 [place] # (Auto) 0.4 10^3/uL (0.2-0.9) 08/04/22 05:14 Eos # (Auto) 0.0 10^3/uL (0.0-0.8) 08/04/22 05:14 Baso # (Auto) 0.0 10^3/uL (0.0-0.1) 08/04/22 05:14 Nucleated RBC % (auto) 0 % 08/04/22 05:14 Nucleated RBCs # 0.0 /100WBC 08/04/22 05:14 PT 14.60 SECONDS (12.1-14.9) 07/31/22 03:00 INR 1.11 (0.8-1.2) 07/31/22 03:00 Specimen Type Arterial 07/31/22 04:50 Sample Site Radial, right 07/31/22 04:50 ABG pH 7.36 (7.35-7.45) 07/31/22 04:50 ABG pCO2 59.6 mmHg (35-45) H 07/31/22 04:50 ABG pO2 86.0 mmHg (80.0-100.0) 07/31/22 04:50 ABG HCO3 33.8 mmol/L (22-26) H 07/31/22 04:50 ABG Base Excess 6.9 mmol/L (-2.0-2.0) H 07/31/22 04:50 Jordan Test Pos 07/31/22 04:50 Hematocrit 33.1 % (37-47) L 07/31/22 04:50 Hgb O2 Saturation 99.9 % (95-100) 07/31/22 03:06 Carboxyhemoglobin 1.2 %THgb (0.4-20.1) 07/31/22 03:06 Methemoglobin < 0.0 % (0.4-1.5) L 07/31/22 03:06 Total Hemoglobin 11.4 g/dL (12-16) L 07/31/22 03:06 O2 Delivery Device Bipap 07/31/22 04:50 FiO2 30.0 % 07/31/22 04:50 Behavioral Health Consultant ID [email or web address] 07/31/22 04:50 Sodium 131 mmol/L (136-145) L 08/04/22 05:14 Potassium 3.2 mmol/L (3.5-5.1) L 08/04/22 05:14 Chloride 85 mmol/L (98-107) L 08/04/22 05:14 Carbon Dioxide 34 mmol/L (22-29) H 08/04/22 05:14 Anion Gap 15.2 (5-19) 08/04/22 05:14 BUN 22 mg/dL (8-23) 08/04/22 05:14 Creatinine 0.9 mg/dL (0.5-0.9) 08/04/22 05:14 GFR Calculation Not Reportable 08/04/22 05:14 Glucose 102 mg/dL (65-115) 08/04/22 05:14 POC Glucose 163 mg/dL (70-110) H 08/05/22 10:56 Estimat Average Glucose 123 07/31/22 06:25 Hemoglobin A1c 5.9 % (4.0-6.0) 07/31/22 06:25 Calculated Osmolality 276 mOsm/kg (285-295) L 08/04/22 05:14 Lactic Acid 0.9 mmol/L (0.5-2.2) 07/31/22 03:00 Calcium 7.2 mg/dL (8.5-10.5) L 08/04/22 05:14 Total Bilirubin 0.4 mg/dL (0.15-1.2) 08/04/22 05:14 AST 15 U/L (0-32) 08/04/22 05:14 ALT 9 U/L (0-33) 08/04/22 05:14 Alkaline Phosphatase 79 U/L (35-105) 08/04/22 05:14 Troponin T Baseline 114 ng/L (0-10) H* 07/31/22 06:25 Troponin T 120 Minute 125.5 ng/L (0-10) H 07/31/22 08:26 Delta Troponin T 11.5 ABS# (0-10) H* 07/31/22 08:26 Troponin T Hi Sens 6Hr 109.1 ng/L (0-10) H 07/31/22 12:34 Troponin T Hi Sens 6Hr Delta -4.9 ng/L (0-12) L 07/31/22 12:34 C-Reactive Protein 68.4 mg/L (0.0-4.9) H 07/31/22 06:25 NT-Pro-B Natriuret Pep 725 pg/mL (0-450) H 07/31/22 03:00 Total Protein 6.4 g/dL (6.6-8.7) L 08/04/22 05:14 Albumin 3.4 g/dL (3.5-5.2) L 08/04/22 05:14 Globulin 3.0 g/dL (1.3-4.6) 08/04/22 05:14 Procalcitonin 0.18 ng/mL (0-0.5) 07/31/22 06:25 TSH 3.80 uIU/mL (0.27-4.20) 07/31/22 06:25 Nasal Influ A H1 2008 PCR Not detected (NOT DETECT) 08/01/22 06:00 Adenovirus (PCR) Not detected (NOT DETECT) 08/01/22 06:00 C. pneumoniae DNA (PCR) Not detected (NOT DETECT) 08/01/22 06:00 Coronavirus 229E (PCR) Not detected (NOT DETECT) 08/01/22 06:00 Human Metapneumovir PCR Not detected (NOT DETECT) 08/01/22 06:00 Influenza A (H1) PCR Not detected (NOT DETECT) 08/01/22 06:00 Influenza A (H3) PCR Not detected (NOT DETECT) 08/01/22 06:00 Influenza Type A (PCR) Not detected (NOT DETECT) 08/01/22 06:00 Influenza Type B (PCR) Not detected (NOT DETECT) 08/01/22 06:00 M. pneumoniae (PCR) Not detected (NOT DETECT) 08/01/22 06:00 Parainfluenza 1 (PCR) Not detected (NOT DETECT) 08/01/22 06:00 Parainfluenza 2 (PCR) Not detected (NOT DETECT) 08/01/22 06:00 Parainfluenza 3 (PCR) Not detected (NOT DETECT) 08/01/22 06:00 Parainfluenza 4 (PCR) Not detected (NOT DETECT) 08/01/22 06:00 RSV Type A (PCR) Not detected (NOT DETECT) 08/01/22 06:00 RSV Type B (PCR) Not detected (NOT DETECT) 08/01/22 06:00 Entero/Rhino (PCR) Not detected (NOT DETECT) 08/01/22 06:00 SARS-CoV-2 (PCR) Not detected (NOT DETECT) 08/01/22 06:00 SARS-CoV-2 Ag (Rapid) negative (Negative) 08/05/22 09:35 Vitals Last Vital Signs Temp 97.8 F 08/05/22 08:00 Pulse 66 08/05/22 11:21 Resp 16 08/05/22 11:19 BP 126/54 08/05/22 08:00 Pulse Ox 98 08/05/22 11:19 O2 Del Method Nasal Cannula 08/05/22 11:19 O2 Flow Rate 2 08/05/22 11:19 FiO2 30 07/31/22 22:32 Discharge Plan Discharge Patient Disposition: Xfer SNF Condition: Stable Prescriptions: New levofloxacin 500 mg tablet 500 mg PO DAILY 5 Days Qty: 5 0RF Continued metoprolol tartrate 25 mg tablet 25 mg PO BID@08,20 Anoro Ellipta 62.5-25 mcg/actuation blister with device 1 inh INHALATION DAILY@08 albuterol sulfate [Ventolin HFA] 90 mcg/actuation HFA aerosol inhaler 2 puff INHALATION Q6H PRN (Reason: Shortness Of Breath) nitroglycerin 0.4 mg tablet, sublingual 0.4 mg SUBLINGUAL Q5M PRN (Reason: Chest Pain) Rx Instructions: do not exceed 3 doses per episode nystatin 100,000 unit/gram Cream See Rx Instructions .ROUTE .COMPLEX Rx Instructions: apply to rash to buttocks,perineum and breasts twice a day as needed sertraline 100 mg Tablet 200 mg PO DAILY@08 atorvastatin 40 mg tablet 40 mg PO BEDTIME@20 Tylenol 325 mg Tablet 325 - 650 mg PO Q6H PRN (Reason: Pain) clonazepam 0.5 mg tablet 0.5 mg PO DAILY@08 Rx Instructions: end date 08/04/22 clonazepam 1 mg tablet 1 mg PO BEDTIME@20 Rx Instructions: end date 08/04/22 aspirin 81 mg Tablet,Delayed Release (Dr/Ec) 81 mg PO DAILY@08 Dulcolax (bisacodyl) 10 mg Suppository 10 mg [place] DAILY PRN (Reason: Constipation) levothyroxine 200 mcg tablet 200 mcg PO DAILY@05 Dulcolax (bisacodyl) 5 mg Tablet,Delayed Release (Dr/Ec) 10 mg PO DAILY PRN (Reason: Constipation) cholecalciferol (vitamin D3) 1,250 mcg (50,000 unit) capsule 50,000 unit PO Q7D Rx Instructions: on sat furosemide 40 mg Tablet 40 mg PO DAILY@08 30 Days Qty: 30 1RF Rx Instructions: take with 20mg to =60mg potassium chloride 20 mEq tablet,ER particles/crystals 20 meq PO DAILY@08 30 Days Qty: 30 1RF Discontinued furosemide 20 mg tablet 20 mg PO DAILY@08 Rx Instructions: take with 40mg to =60mg potassium chloride [Klor-Con M10] 10 mEq tablet,ER particles/crystals 10 meq PO DAILY@20 Discharge Orders: Discharge Order (Routine); Ordered 08/05/22 Ordered By: Sinan Naranjo Referrals: [facility] [Outside] Viktor Baker MD [Primary Care Provider] - Patient Instructions: Levofloxacin (By mouth), Opioid Safety Discharge Attestations Time Spent in Discharge Care*: less than 30 min Status at Discharge: Cognitive status at discharge: moderately impaired cognition, Behavioral status at discharge: cooperative, can be uncooperative and dependent in ADL's, Quality Metrics Clinical Quality Measures [ No reported AMI, CVA or VTE this stay] Coding Level of Care Code Acute Code for [facility] Fwd Diagnoses Respiratory failure with hypoxia and hypercapnia J96.91; J96.92 Acute exacerbation of chronic obstructive airways disease J44.1 Pneumonia J18.9 CHF exacerbation I50.9 Acute encephalopathy G93.40
== END 2022-08-05 12:15 | disposition skilled nursing facility (03) | DRG 280 ==
LOC: ER 03:53 → MEDSURG 04:35
PROVIDERS: Student in an Organized Health Care Education/Training Program; Admitting Provider Family Medicine; Emergency Provider Emergency Medicine; PCP Family Medicine; Visit Provider Internal Medicine
DX: I13.0 Hypertensive heart and chronic kidney disease with heart failure and stage 1 through stage 4 chronic kidney disease, or unspecified chronic kidney disease (principal); I21.A1 Myocardial infarction type 2; I50.33 Acute on chronic diastolic (congestive) heart failure; J18.9 Pneumonia, unspecified organism; J96.22 Acute and chronic respiratory failure with hypercapnia; J96.21 Acute and chronic respiratory failure with hypoxia; J44.0 Chronic obstructive pulmonary disease with (acute) lower respiratory infection; G93.40 Encephalopathy, unspecified; J44.1 Chronic obstructive pulmonary disease with (acute) exacerbation; Z86.718 Personal history of other venous thrombosis and embolism; N18.9 Chronic kidney disease, unspecified; E11.22 Type 2 diabetes mellitus with diabetic chronic kidney disease; F03.90 Unspecified dementia, unspecified severity, without behavioral disturbance, psychotic disturbance, mood disturbance, and anxiety; E89.0 Postprocedural hypothyroidism; E66.9 Obesity, unspecified; Z68.36 Body mass index [BMI] 36.0-36.9, adult; G47.33 Obstructive sleep apnea (adult) (pediatric); K21.9 Gastro-esophageal reflux disease without esophagitis; Z86.16 Personal history of COVID-19; I25.10 Atherosclerotic heart disease of native coronary artery without angina pectoris; Z79.51 Long term (current) use of inhaled steroids; Z79.82 Long term (current) use of aspirin; Z66 Do not resuscitate; Z87.891 Personal history of nicotine dependence; D63.1 Anemia in chronic kidney disease
CPT/HCPCS: 36415; 36416; 36600; 51702; 71045; 78452; 80053; 82803; 82805; 82962; 83036; 83605; 83880; 84145; 84443; 84484; 85025; 85610; 86140; 87426; 87486; 87581; 87633; 93005; 93017; 93306; 94640; 94660; 94664; 96372; 96374; 96375; 97110; 97161; 97530; A9500; C9113; J0456; J0696; J1100; J1650; J1815; J1940; J2785; J7050; J7613; J7626; J7644

== ENCOUNTER 2022-09-10 14:17 | Outpatient (CLI) | payer MEDICARE, MEDICAID, SELFPAY ==
[2022-09-10 14:46] LABS: Basophils % 0.4 %; Eosinophils # 0.1 10^3/uL (0.0-0.8); Hematocrit 37.4 % (37.0-47.0); Hemoglobin 11.8 g/dL (11.5-15.3); Lymphocytes # 0.7 10^3/uL (0.8-4.8); Lymphocytes % 9.2 %; Mean Corpuscular HGB Conc 31.6 g/dL (30.0-36.0); Mean Corpuscular Hemoglobin 26.8 pg (28.0-34.0); Mean Platelet Volume 9.8 fL (7.4-10.4); Monocytes # 0.5 10^3/uL (0.2-0.9); Monocytes % 5.8 %; Neutrophils # 6.41 10^3/uL (1.8-7.7); Neutrophils % 83.2 %; Nucleated Red Blood Cells % 0 %; Platelet Count 263 10^3/cmm (130-400); Red Cell Distribution Width 16.7 % (12.1-15.1); White Blood Count 7.7 10^3/uL (4.0-10.0)
[2022-09-10 15:23] LABS: Alanine Aminotransferase 8 U/L (0-33); Albumin Level 3.7 g/dL (3.5-5.2); Alkaline Phosphatase 81 U/L (35-105); Anion Gap 15.2 (5-19); Aspartate Amino Transferase 12 U/L (0-32); Blood Urea Nitrogen 18 mg/dL (8-23); Calcium 7.6 mg/dL (8.5-10.5); Carbon Dioxide 31 mmol/L (22-29); Chloride 91 mmol/L (98-107); Glucose 101 mg/dL (65-115); NT Pro B Type Natriuretic Pept 388 pg/mL (0-450); Osmolality Calculated 278 mOsm/kg (285-295); Potassium 4.2 mmol/L (3.5-5.1); Sodium 133 mmol/L (136-145); Total Bilirubin 0.3 mg/dL (0.15-1.2); Total Protein 6.7 g/dL (6.6-8.7)
== END 2022-09-10 14:18 | disposition home or self-care (01) ==
PROVIDERS: PCP Family Medicine; Visit Provider Physician Assistant
DX: I13.0 Hypertensive heart and chronic kidney disease with heart failure and stage 1 through stage 4 chronic kidney disease, or unspecified chronic kidney disease (principal); N18.9 Chronic kidney disease, unspecified; I25.10 Atherosclerotic heart disease of native coronary artery without angina pectoris
CPT/HCPCS: 80053; 83880; 85025

== ENCOUNTER 2023-05-26 23:05 | Inpatient (IN) | payer MEDICARE, MEDICAID, SELFPAY ==
[2023-05-26 23:12] VITALS: BP 153/75; PULSE 107; RESP 24; TEMP 37.6; O2SAT 91; BMI 42.0
--- NOTE | 2023-05-26 23:18 | XRR_ITS ---
PROCEDURE INFORMATION: Exam: XR Chest Exam date and time: 05/26/2023 11:25 PM Age: 78 years old Clinical indication: Dyspnea and shortness of breath; Prior surgery; Surgery date: 6+ months; Surgery type: Thyroidectomy. Gb; Patient HX: EMS arrival from [facility] for resp. Distress. TECHNIQUE: Imaging protocol: Radiologic exam of the chest. Views: 1 view. COMPARISON: CR XR chest 1V portable [id number] 07/31/2022 2:55 AM FINDINGS: Lungs: Hazy opacity in the inferior right upper lobe, new from prior. Pleural spaces: No large pleural effusion. No pneumothorax. Heart/Mediastinum: Borderline cardiomegaly. Bones/joints: No acute abnormality. XR/XR chest 1V portable [id number] IMPRESSION: Hazy airspace opacity in the inferior right upper lobe, new from prior, concerning for infiltrate/infection.
--- NOTE | 2023-05-26 23:24 | ED_ITS ---
HPI - SOB/Dyspnea 2 General: Chief Complaint: Shortness of Breath/Dyspnea Stated Complaint: respiratory distress Time Seen by Provider: 05/26/23 23:18 History of Present Illness: HPI Narrative: Patient presents by EMS from [facility] with complaints of shortness of breath. Patient does have a productive cough with yellow phlegm. She has had intermittent fever patient was given albuterol, DuoNeb, Decadron by EMS. Patient began taking prednisone yesterday per [facility] staff. Patient does have a history of COPD, CHF, patient is not oxygen dependent Review of Systems 2 General: Reports: 10 or more systems reviewed and unremarkable except in HPI and below PFSH ED 2 PFSH: Medical History (Updated 05/27/23 @ 01:02 by Guillermo Ocampo DO) Acute encephalopathy CHF exacerbation Pneumonia Respiratory failure with hypoxia and hypercapnia Acute exacerbation of chronic obstructive airways disease COPD (chronic obstructive pulmonary disease) -follows up with Dr. Lane -no acute exacerbation, not oxygen dependent at baseline Dementia GI bleed Normocytic anemia -acute blood loss on chronic normocytic anemia; previously had macrocytic anemia secondary to vitamin B12 and folate deficiencies -plan for EGD and colonoscopy by Dr. Sapp; per my discussion with him, would like to wait at least 6-8 weeks post-op to allow for appropriate recovery -AC has been on hold; had previously been on Eliquis due to UE superficial DVT -s/p 4 units PRBCs due to acute drop in Hg (09/03 & 09/05); continue to closely monitor H/H. Hg increased to 9.4 today -baseline Hg appears to be around 11 -on PPI CAD (coronary artery disease) -NSTEMI and code blue during hospitalization in 04/2019 -has been following up with cardiology -Echo (04/2019): EF=64%, no RWMA, G1DD, mild MR, trace AR -had coronary angiogram (06/2019) showing normal coronaries -on statin, BB Hypocalcemia -previously noted; corrected Ca-8.5 -PTH wnl Congestive heart failure -no acute exacerbation currently -last Echo: EF=64%, no RWMA, G1DD, mild MR, trace AR DVT (deep venous thrombosis) -previously found to have R basilic vein DVT -had been on AC with Eliquis, now discontinued; not a good candidate for further anticoagulation due to underlying anemia NSTEMI (non-ST elevated myocardial infarction) Macrocytic anemia -has chronic macrocytic anemia; has evidence of vitamin B12 and folate deficiency -replacing vitamin B12, folate -also noted evidence of low iron Acute respiratory failure with hypoxia -Required intubation following CODE BLUE, extubated on 05/14 Lymphedema Non-insulin dependent type 2 diabetes mellitus -A1c-5.5 -Acchucheks, hypoglycemia precautions, ISS Hypertension -VSS; continue to monitor Hypothyroidism -Hx of thyroid cancer s/p thyroidectomy with acquired hypothyroidism -continue levothyroxine Surgical History H/O esophagogastroduodenoscopy (09/20/19) Status post colonoscopy with polypectomy (09/20/19) S/P cholecystectomy History of ankle surgery H/O thyroidectomy Family History Other Breast cancer CAD (coronary artery disease) Diabetes Hypertension Social History Smoking and tobacco/nicotine status: former use of tobacco/nicotine Quit status (tobacco/nicotine): has quit using Former quit date comment: Smoked briefly in her teens. Alcohol intake: never Substance/Drug Use: never Lives independently: Yes Household members: none Housing: Apartment Current occupational status: disabled Do you think of yourself as: Straight/Heterosexual Current gender identity: Female Physical Exam 2 Const: COMMON NORMALS: no acute distress, average body habitus, patient oriented x3, no limitations, healthy appearing, alert and well nourished HENMT: COMMON NORMALS: normocephalic, atraumatic, hearing grossly normal bilaterally, external ears normal, EAC's normal, Normal external nose present, moist oral mucous membranes and oropharynx normal HEAD & SCALP: normocephalic and atraumatic NOSE: Normal external nose present EXTERNAL EAR: Yes external ears normal EXTERNAL AUDITORY CANAL: EAC's normal Neck/C-Spine: COMMON NORMALS: no JVD Chest: COMMONS NORMALS: normal inspection of the chest and normal palpation of entire chest wall Resp: COMMON NORMALS: normal respiratory effort, No retractions and No use of accessory muscles; negative for clear to auscultation bilaterally (Diffuse rhonchi bilaterally) AUSCULTATION: not clear to auscultation bilaterally (Diffuse rhonchi bilaterally) Cardio: COMMON NORMALS: no JVD, regular rate, regular rhythm, S1 normal heart sound present, S2 normal heart sound present, No gallops present (Cardio), No clicks present (Cardio) and No rub (Cardio) RATE: regular rate RHYTHM: r egular rhythm HEART SOUNDS: S1 normal heart sound present and S2 normal heart sound present GI: COMMON NORMALS: Normal to inspection, nondistended, normoactive bowel sounds present, Soft to palpation, non-tender, No hepatosplenomegaly present and no masses PALPATION: Yes Soft to palpation and Yes No hepatosplenomegaly present Neuro: COMMON NORMALS: patient oriented x3 SENSORIUM/ORIENTATION: Yes alert Course 2 Vital Signs: Vital signs: Vital Signs Temperature 99.7 F H 05/26/23 23:12 Pulse Rate 104 H 05/27/23 00:39 Respiratory Rate 32 H 05/27/23 00:39 Blood Pressure 150/65 05/27/23 00:00 Pulse Oximetry 95 05/27/23 00:39 Oxygen Delivery Me thod BiPAP 05/27/23 00:39 Oxygen Flow Rate 8 05/26/23 23:12 Fraction of Inspir ed Oxygen 50 05/27/23 00:39 MDM - SOB/Dyspnea Medical Decision Making Upon arrival to the ER patient looked like she was in respiratory distress breathing heavily. An ABG was obtained which showed elevated pCO2. Patient was placed on BiPAP. Lab work was obtained showed elevated white count of 13.2, BUN/creatinine 23 and 1.1, BNP 3526, influenza and COVID swabs were negative. Chest x-ray showed right upper lobe infiltrate, blood cultures was obtained and patient was given 1 g Rocephin IV. Patient will be placed in [facility] for further evaluation and treatment. Dr. Vásquez was consulted and is in agreements with this. Differential Diagnosis Likely acute exacerbation of chronic obstructive airways disease and community acquired pneumonia; Unlikely congestive heart failure, asthma with exacerbation or pulmonary embolism Medical Records I reviewed the patient's medical records. Lab Data I reviewed the patient's lab results. 05/26/23 23:23 05/26/23 23:23 Labs/Radiology: Radiology Impressions Chest X-Ray 05/26/23 23:18 IMPRESSION: Hazy airspace opacity in the inferior right upper lobe, new from prior, concerning for infiltrate/infection. Laboratory Results WBC 13.23 10^3/uL (3.29-11.43) H 05/26/23 23:23 RBC 4.45 10^6/uL (3.85-5.65) 05/26/23 23:23 Hgb 11.50 g/dL (11.27-16.99) 05/26/23 23:23 Hct 37.2 % (36-47) 05/26/23 23:23 MCV 83.6 fl (85-98) L 05/26/23 23:23 MCH 25.8 pg (27-33) L 05/26/23 23:23 MCHC 30.9 g/dL (30-55) 05/26/23 23: RDW 16.2 % (12.1-15.1) H 05/26/23 23:23 Plt Count 367 10^3/cmm (157-399) 05/26/23 23:23 MPV 9.4 fL (7.4-10.4) 05/26/23 23:23 Neut % (Auto) 90.0 % 05/26/23 23:23 Lymph % (Auto) 2.1 % 05/26/23 23:23 Humphreys % (Auto) 6.7 % 05/26/23 23:23 Eos % (Auto) 0.1 % 05/26/23 23: Baso % (Auto) 0.3 % 05/26/23 23:23 Neut # (Auto) 11.91 10^3/uL (1.8-7.7) H 05/26/23 23:23 Lymph # (Auto) 0.3 10^3/uL (0.8-4.8) L 05/26/23 23:23 Humphreys # (Auto) 0.9 10^3/uL (0.2-0.9) 05/26/23 23:23 Eos # (Auto) 0.0 10^3/uL (0.0-0.8) 05/26/23 23:23 Baso # (Auto) 0.0 10^3/uL (0.0-0.1) 05/26/23 23:23 Nucleated RBC % (auto) 0 % 05/26/23 23:23 Nucleated RBCs # 0.0 /100WBC 05/26/23 23:23 Specimen Type Arterial 05/26/23 23:25 Sample Site Brachial, right 05/26/23 23:25 ABG pH 7.29 (7.35-7.45) L 05/26/23 23:25 ABG pCO2 60.6 mmHg (35-45) H* 05/26/23 23:25 ABG pO2 70.7 mmHg (80.0-100.0) L 05/26/23 23:25 ABG PO2/FiO2 Ratio 0 05/26/23 23:25 ABG HCO3 29.3 mmol/L (22-26) H 05/26/23 23:25 ABG Base Excess 1.6 mmol/L (-2.0-2.0) 05/26/23 23:25 Jordan Test Pos 05/26/23 23:25 Hematocrit 35.2 % (37-47) L 05/26/23 23:25 Hgb O2 Saturation 91.7 % (95-100) L 05/26/23 23:25 Carboxyhemoglobin 1.2 %THgb (0.4-20.1) 05/26/23 23:25 Methemoglobin 0.5 % (0.4-1.5) 05/26/23 23:25 Total Hemoglobin 11.5 g/dL (12-16) L 05/26/23 23:25 O2 Delivery Device Cont neb 05/26/23 23:25 O2 Liters/Min 5.0 % 05/26/23 23:25 FiO2 45.0 % 05/26/23 23:25 Food And Nutrition Services Assistant ID [email or web address] 05/26/23 23:25 Sodium 138 mmol/L (136-145) 05/26/23 23:23 Potassium 4.2 mmol/L (3.5-5.1) 05/26/23 23:23 Chloride 96 mmol/L (98-107) L 05/26/23 23:23 Carbon Dioxide 29 mmol/L (22-29) 05/26/23 23:23 Anion Gap 17.2 (5-19) 05/26/23 23:23 BUN 23 mg/dL (8-23) 05/26/23 23:23 Creatinine 1.1 mg/dL (0.5-0.9) H 05/26/23 23:23 GFR Calculation Not Reportable 05/26/23 23:23 Glucose 171 mg/dL (65-115) H 05/26/23 23:23 Calculated Osmolality 294 mOsm/kg (285-295) 05/26/23 23:23 Lactic Acid 1.0 mmol/L (0.5-2.2) 05/26/23 23:23 Calcium 7.9 mg/dL (8.5-10.5) L 05/26/23 23:23 Magnesium 1.8 mg/dL (1.7-2.3) 05/26/23 23:23 Total Bilirubin 0.3 mg/dL (0.15-1.2) 05/26/23 23:23 AST 16 U/L (0-32) 05/26/23 23:23 ALT 15 U/L (0-33) 05/26/23 23:23 Alkaline Phosphatase 169 U/L (35-105) H 05/26/23 23:23 NT-Pro-B Natriuret Pep 3526 pg/mL (0-450) H 05/26/23 23:23 Total Protein 7.5 g/dL (6.6-8.7) 05/26/23 23:23 Albumin 3.4 g/dL (3.5-5.2) L 05/26/23 23:23 Globulin 4.1 g/dL (1.3-4.6) 05/26/23 23:23 Procalcitonin 0.45 ng/mL (0-0.5) 05/26/23 23:23 Influenza Type A Ag negative (Negative) 05/26/23 23:45 Influenza Type B Ag negative (Negative) 05/26/23 23:45 SARS-CoV-2 Ag (Rapid) negative (Negative) 05/26/23 23:45 All radiology interpretation(s) finalized by discharge Discharge Plan Discharge Patient Disposition: Admitted As Inpatient Clinical Impression: Acute hypercapnic respiratory failure Right upper lobe pneumonia Qualifiers: Pneumonia type: due to unspecified organism Qualified Code(s): J18.9 - Pneumonia, unspecified organism Condition: Stable Coding Level of Care Code ED 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
[2023-05-26 23:29] LABS: Basophils % 0.3 %; Eosinophils % 0.1 %; Hematocrit 37.2 % (36-47); Lymphocytes # 0.3 10^3/uL (0.8-4.8); Lymphocytes % 2.1 %; Mean Corpuscular HGB Conc 30.9 g/dL (30-55); Mean Corpuscular Hemoglobin 25.8 pg (27-33); Mean Corpuscular Volume 83.6 fl (85-98); Mean Platelet Volume 9.4 fL (7.4-10.4); Monocytes # 0.9 10^3/uL (0.2-0.9); Monocytes % 6.7 %; Neutrophils # 11.91 10^3/uL (1.8-7.7); Nucleated Red Blood Cells % 0 %; Platelet Count 367 10^3/cmm (157-399); Red Blood Count 4.45 10^6/uL (3.85-5.65); Red Cell Distribution Width 16.2 % (12.1-15.1); White Blood Count 13.23 10^3/uL (3.29-11.43)
[2023-05-26 23:36] LABS: ABG PCO2 60.6 mmHg (35-45); ABG PH Result 7.29 (7.35-7.45); Arterial Blood Gas Hematocrit 35.2 % (37-47); Base Excess ABG 1.6 mmol/L (-2.0-2.0); Blood Gas Allen Test Pos; Blood Gas Sample Site Brachial, right; Blood Gas Sample Type Arterial; Carboxyhemoglobin 1.2 %THgb (0.4-20.1); HCO3 ABG 29.3 mmol/L (22-26); HGB O2 Sat 91.7 % (95-100); Methemoglobin 0.5 % (0.4-1.5); Oxygen Device CONT NEB; PO2 ABG 70.7 mmHg (80.0-100.0); PO2 FiO2 Ratio Arterial Blood 0; Total Hemoglobin 11.5 g/dL (12-16)
[2023-05-27] VITALS (19 sets, daily range): BP systolic 109–150; BP diastolic 57–73; PULSE 68–110; RESP 15–32; TEMP 36.4–37.6; O2SAT 95–100; BMI 35.8
[2023-05-27 00:01] LABS: Alanine Aminotransferase 15 U/L (0-33); Albumin Level 3.4 g/dL (3.5-5.2); Alkaline Phosphatase 169 U/L (35-105); Anion Gap 17.2 (5-19); Aspartate Amino Transferase 16 U/L (0-32); Blood Urea Nitrogen 23 mg/dL (8-23); Calcium 7.9 mg/dL (8.5-10.5); Carbon Dioxide 29 mmol/L (22-29); Chloride 96 mmol/L (98-107); Creatinine Clr Calc Pharmacy 46.9991; Globulin 4.1 g/dL (1.3-4.6); Glucose 171 mg/dL (65-115); Magnesium 1.8 mg/dL (1.7-2.3); NT Pro B Type Natriuretic Pept 3526 pg/mL (0-450); Osmolality Calculated 294 mOsm/kg (285-295); Potassium 4.2 mmol/L (3.5-5.1); Sodium 138 mmol/L (136-145); Total Bilirubin 0.3 mg/dL (0.15-1.2); Total Protein 7.5 g/dL (6.6-8.7)
[2023-05-27 00:07] LABS: SARS Covid-2 Antigen negative (Negative)
[2023-05-27 00:08] LABS: Influenza A by IFA negative (Negative); Influenza B by IFA negative (Negative)
[2023-05-27 00:18] LABS: Procalcitonin 0.45 ng/mL (0-0.5)
[2023-05-27] MEDS: cefTRIAXone 1,000 MG in sodium chloride 0.9% (plus) 50 ML 100 MG IV ×2 (00:57→20:17)
--- NOTE | 2023-05-27 01:17 | P.HP_ITS ---
Providers/Chief Complaint 2 Primary Care Provider: Viktor Baker MD Chief Complaint: respiratory distress History of Present Illness Pleasant 78-year-old [facility] resident with history of COPD, CHF, CAD, remote history of DVT, hypothyroidism, other medical problems was brought in due to worsened dyspnea, cough productive of phlegm with color change she reports green, this is despite starting on prednisone by primary provider. In ER requiring 8 L nasal cannula oxygen. ABG with respiratory acidosis, was getting fatigued, started on BiPAP. CXR w new hazy opacities RUL. Review of Systems 2 ENMT: Denies: throat pain, oral sores or ear or mastoid pain Card: Denies: chest pain, edema, pre-syncope or dyspnea on exertion Resp: Reports: dyspnea, productive cough and change in phlegm color; Denies: hemoptysis GI: Denies: abdominal pain, nausea, vomiting, diarrhea, constipation, hematochezia or melena : Denies: flank pain, urinary frequency or hematuria Musc: Denies: back pain, joint swelling or joint redness Skin/Breast: Denies: rash or new lesions Neuro: Denies: headache(s) or confusion Medications/Allergies Home Medications Medication Instructions Recorded Confirmed Last Taken Type metoprolol tartrate 25 mg tablet 25 mg PO BID@06/30/19 07/31/22 10/18/19 History albuterol sulfate 90 mcg/actuation 2 puff inhalation Q6H PRN 07/06/19 07/31/22 09/19/19 History aerosol inhaler (Ventolin HFA) Shortness Of Breath umeclidinium 62.5 mcg-vilanterol 1 inh inhalation DAILY@07/06/19 07/31/22 10/18/19 History 25 mcg/actuation powdr for inhalation (Anoro Ellipta) nitroglycerin 0.4 mg sublingual 0.4 mg sublingual Q5M PRN Chest 07/26/19 07/31/22 Unknown History tablet Pain nystatin 100,000 unit/gram topical See Rx Instructions .Route .COMPLEX 09/03/19 07/31/22 09/19/19 History cream sertraline 100 mg tablet 200 mg PO DAILY@10/18/19 07/31/22 10/18/19 History acetaminophen 325 mg tablet 325 - 650 mg PO Q6H PRN Pain 07/31/22 07/31/22 Unknown History (Tylenol) aspirin 81 mg tablet,delayed 81 mg PO DAILY@08 07/31/22 07/31/22 Unknown History release atorvastatin 40 mg tablet 40 mg PO BEDTIME@07/31/22 07/31/22 Unknown History bisacodyl 10 mg rectal suppository 10 mg MA DAILY PRN Constipation 07/31/22 07/31/22 Unknown History (Dulcolax (bisacodyl)) bisacodyl 5 mg tablet,delayed 10 mg PO DAILY PRN Constipation 07/31/22 07/31/22 Unknown History release (Dulcolax (bisacodyl)) cholecalciferol (vitamin D3) 1,250 50,000 unit PO Q7D 07/31/22 07/31/22 Unknown History mcg (50,000 unit) capsule clonazepam 0.5 mg tablet 0.5 mg PO DAILY@08 07/31/22 07/31/22 Unknown History clonazepam 1 mg tablet 1 mg PO BEDTIME@07/31/22 07/31/22 Unknown History levothyroxine 200 mcg tablet 200 mcg PO DAILY@07/31/22 07/31/22 Unknown History furosemide 40 mg tablet 40 mg PO DAILY@08 30 days #30 tabs 08/05/22 07/31/22 Unknown Rx potassium chloride 20 mEq 20 meq PO DAILY@08 30 days #30 tabs 08/05/22 07/31/22 Unknown Rx tablet,extended release(part/cryst) Allergies Allergy/AdvReac Type Severity Reaction Status Date / Time methylprednisolone Allergy ALGY-Rash Verified 07/31/22 02:48 [From Solu-Medrol] piperacillin [From Zosyn] Allergy ALGY-Rash Verified 07/31/22 02:48 tazobactam [From Zosyn] Allergy ALGY-Rash Verified 07/31/22 02:48 PFSH Acute 2 PFSH: Medical History Femur fracture, right History of femur fracture Acute encephalopathy CHF exacerbation Pneumonia Respiratory failure with hypoxia and hypercapnia Acute exacerbation of chronic obstructive airways disease COPD (chronic obstructive pulmonary disease) -follows up with Dr. Lane -no acute exacerbation, not oxygen dependent at baseline Dementia GI bleed Normocytic anemia -acute blood loss on chronic normocytic anemia; previously had macrocytic anemia secondary to vitamin B12 and folate deficiencies -plan for EGD and colonoscopy by Dr. Sapp; per my discussion with him, would like to wait at least 6-8 weeks post-op to allow for appropriate recovery -AC has been on hold; had previously been on Eliquis due to UE superficial DVT -s/p 4 units PRBCs due to acute drop in Hg (09/03 & 09/05); continue to closely monitor H/H. Hg increased to 9.4 today -baseline Hg appears to be around 11 -on PPI CAD (coronary artery disease) -NSTEMI and code blue during hospitalization in 04/2019 -has been following up with cardiology -Echo (04/2019): EF=64%, no RWMA, G1DD, mild MR, trace AR -had coronary angiogram (06/2019) showing normal coronaries -on statin, BB Hypocalcemia -previously noted; corrected Ca-8.5 -PTH wnl Congestive heart failure -no acute exacerbation currently -last Echo: EF=64%, no RWMA, G1DD, mild MR, trace AR DVT (deep venous thrombosis) -previously found to have R basilic vein DVT -had been on AC with Eliquis, now discontinued; not a good candidate for further anticoagulation due to underlying anemia NSTEMI (non-ST elevated myocardial infarction) Macrocytic anemia -has chronic macrocytic anemia; has evidence of vitamin B12 and folate deficiency -replacing vitamin B12, folate -also noted evidence of low iron Acute respiratory failure with hypoxia -Required intubation following CODE BLUE, extubated on 05/14 Lymphedema Non-insulin dependent type 2 diabetes mellitus -A1c-5.5 -Acchucheks, hypoglycemia precautions, ISS Hypertension -VSS; continue to monitor Hypothyroidism -Hx of thyroid cancer s/p thyroidectomy with acquired hypothyroidism -continue levothyroxine Surgical History H/O esophagogastroduodenoscopy (09/20/19) Status post colonoscopy with polypectomy (09/20/19) S/P cholecystectomy History of ankle surgery H/O thyroidectomy Family History Other Breast cancer CAD (coronary artery disease) Diabetes Hypertension Social History Smoking and tobacco/nicotine status: former use of tobacco/nicotine Quit status (tobacco/nicotine): has quit using Former quit date comment: Smoked briefly in her teens. Alcohol intake: never Substance/Drug Use: never Lives independently: Yes Household members: none Housing: Apartment Current occupational status: disabled Do you think of yourself as: Straight/Heterosexual Current gender identity: Female Vitals/I&O/Wt Last Vital Signs Temp 99.7 F H 05/26/23 23:12 Pulse 101 H 05/27/23 01:02 Resp 18 05/27/23 01:02 BP 109/57 05/27/23 01:02 Pulse Ox 95 05/27/23 01:02 O2 Del Method BiPAP 05/27/23 00:39 O2 Flow Rate 8 05/26/23 23:12 FiO2 50 05/27/23 00:39 Weight last 48 hrs Weight 104.326 kg Physical Exam 2 Narrative: BiPAP Const: COMMON NORMALS: patient oriented x3 and alert GENERAL APPEARANCE: c ooperative ORIENTATION/CONSCIOUSNESS: Yes awake HENMT: COMMON NORMALS: oropharynx normal Neck/C-Spine: COMMON NORMALS: no JVD Resp: AUSCULTATION: rhonchi, wheezes and diminished lung sounds Cardio: COMMON NORMALS: no JVD, regular rhythm, S1 normal heart sound present, S2 normal heart sound present and No murmurs present (Cardio) RHYTHM: regular rhythm HEART SOUNDS: S1 normal heart sound present and S2 normal heart sound present GI: COMMON NORMALS: Normal to inspection, nondistended, normoactive bowel sounds present, Soft to palpation and non-tender PALPATION: Yes Soft to palpation Extremity: COMMON NORMALS: no joint enlargement and no pedal edema Neuro: COMMON NORMALS: patient oriented x3 and moves all extremities S ENSORIUM/ORIENTATION: Yes alert Skin: COMMON NORMALS: no rashes or lesions noted GENERAL SKIN EXAM: no rashes or lesions noted Data 05/26/23 23:23 05/26/23 23:23 Micro: Microbiology 05/26/23 23:45 Blood Culture - Preliminary Blood SPECIMEN COLLECTED 05/26/23 23:42 Blood Culture - Preliminary Blood SPECIMEN COLLECTED A&P Assessment and plan (1) Acute hypercapnic respiratory failure: Acute respiratory failure with hypercapnia, respiratory acidosis, hypoxia, increased oxygen requirement newly needing 8 L on presentation, getting fatigued, tachypneic with respiratory distress, started on BiPAP. Reviewed vitals, ABG, CBC, CMP, magnesium, procalcitonin, NT-proBNP, rapid influenza, rapid COVID, chest x-ray, ER note, discussed with ER provider. Multifactorial respiratory failure with right upper lobe community-acquired pneumonia as well as severe COPD exacerbation with dyspnea, hypoxia, hypercapnic respiratory failure, cough productive of purulent appearing green sputum, increased cough. Possible component of congestive heart failure exacerbation, NT proBNP higher than previous at 3526. Mild lower extremity edema. Ceftriaxone, azithromycin, and reports COVID-19 prolongation. Check EKG. Sputum culture. Obtain urine bacterial antigens, urine Legionella antigen. MRSA PCR. She is allergic to Solu-Medrol. Decadron for severe exacerbation of COPD with antibiotics as well. Breathing treatments added. BiPAP support, wean down as tolerating. Will give Lasix 20 mg IV x 1, continue daily for component of acute diastolic CHF exacerbation. Monitor SOM. Monitor for electrolyte normality with diuresis. Monitor on telemetry. Complete troponin EKG series. Normal EF on last echocardiogram. (2) Right upper lobe pneumonia: As above. Qualifiers: Pneumonia type: due to unspecified organism Qualified Code(s): J18.9 - Pneumonia, unspecified organism (3) COPD exacerbation: Severe exacerbation of COPD as above. Plan History of DVT: DVT prophylaxis requested. HTN: Monitor blood pressure. Hypothyroidism: Requesting home medications to be confirmed. Resume levothyroxine. Requesting home medications to be confirmed, please review and resume once available. Attestations 2 Medical Necessity Statement*: Admission of over 2 midnights anticipated for assessment and management of acute respiratory failure with hypercapnia and hypoxia, community-acquired pneumonia, severe COPD exacerbation, diastolic congestive heart failure exacerbation. Diagnoses Acute hypercapnic respiratory failure J96.02 Right upper lobe pneumonia J18.9 Pneumonia type: due to unspecified organism COPD exacerbation J44.1
[2023-05-27 02:23] LABS: Troponin(5th) Baseline 40 ng/L (0-10)
[2023-05-27] MEDS: dexamethasone 10 mg/mL INJ 6 MG IVP ×2 (02:49→09:21)
[2023-05-27] MEDS: ipratropium-albuterol 3 mL Neb INHALATION ×4 (02:49→20:12)
[2023-05-27] MEDS: FUROsemide 10 mg/mL SDV 2mL 20 MG IVP (02:49)
[2023-05-27] MEDS: magnesium sulfate premix 2 GM/50 ML PIGGYBACK IV (03:26)
[2023-05-27] MEDS: enoxaparin 40 mg/0.4 mL Syringe SUBCUT (03:26)
--- NOTE | 2023-05-27 03:36 | ECG_ITS ---
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 Measurements Intervals [place] Rate: 85 P: 100 UT: 163 QRS: 8 QRSD: 106 T: 79 QT: 372 QTc: 443 Interpretive Statements SINUS RHYTHM Compared to ECG 07/31/2022 11:03:27 No significant changes Electronically Signed On 05-27-2023 9:13:59 PHARMACY TECHNICIAN PER DIEM by Len Quesada M.D. [email or web address] clinic [facility].[employer]/store/[id number]
[2023-05-27 03:43] LABS: Basophils % 0.2 %; Eosinophils % 0.1 %; Hematocrit 33.1 % (36-47); Lymphocytes # 0.1 10^3/uL (0.8-4.8); Lymphocytes % 1.2 %; Mean Corpuscular HGB Conc 30.2 g/dL (30-55); Mean Corpuscular Hemoglobin 25.6 pg (27-33); Mean Corpuscular Volume 84.7 fl (85-98); Mean Platelet Volume 9.7 fL (7.4-10.4); Monocytes # 0.7 10^3/uL (0.2-0.9); Monocytes % 6.3 %; Neutrophils # 9.58 10^3/uL (1.8-7.7); Neutrophils % 91.7 %; Nucleated Red Blood Cells % 0 %; Platelet Count 295 10^3/cmm (157-399); Red Blood Count 3.91 10^6/uL (3.85-5.65); Red Cell Distribution Width 16.2 % (12.1-15.1); White Blood Count 10.45 10^3/uL (3.29-11.43)
[2023-05-27 04:01] LABS: Alanine Aminotransferase 13 U/L (0-33); Albumin Level 3.2 g/dL (3.5-5.2); Alkaline Phosphatase 162 U/L (35-105); Aspartate Amino Transferase 15 U/L (0-32); Blood Urea Nitrogen 23 mg/dL (8-23); Calcium 7.1 mg/dL (8.5-10.5); Carbon Dioxide 27 mmol/L (22-29); Chloride 98 mmol/L (98-107); Creatinine Clr Calc Pharmacy 42.9368; Globulin 2.8 g/dL (1.3-4.6); Glucose 204 mg/dL (65-115); Osmolality Calculated 296 mOsm/kg (285-295); Sodium 138 mmol/L (136-145); Total Bilirubin 0.2 mg/dL (0.15-1.2)
[2023-05-27 04:02] LABS: Troponin 5 2HR 44.51 ng/L (0-10); Troponin 5 2HR Delta 4.51 ABS# (0-10)
[2023-05-27] MEDS: azithromycin 500 MG in sodium chloride 0.9% 250 ML 250 MG IV (04:17)
[2023-05-27 08:05] LABS: Troponin 5 6HR 35.77 ng/L (0-10)
[2023-05-27 08:10] LABS: Troponin 5 6HR Delta -4.23 ng/L (0-12)
--- NOTE | 2023-05-27 08:16 | PC.PHAR ---
pt is from [facility] [place]medications entered are from the pts mar that was sent with the pt
--- NOTE | 2023-05-27 09:19 | ECG_ITS ---
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 Measurements Intervals [place] Rate: 85 P: 99 [place]: 163 QRS: -13 QRSD: 105 T: 77 QT: 385 QTc: 460 Interpretive Statements SINUS RHYTHM WITH OCCASIONAL SUPRAVENTRICULAR PREMATURE COMPLEXES MINIMAL ST DEPRESSION [0.025+ mV ST DEPRESSION] Compared to ECG 05/27/2023 03:36:11 ST (T wave) deviation now present Electronically Signed On 05-27-2023 11:08:49 FAMILY PARTNER by Len Quesada M.D. [id number]
[2023-05-27] MEDS: pantoprazole DR 40 mg Tablet PO (09:21)
--- NOTE | 2023-05-27 09:45 | W.PM.EVENTAC ---
Event Note Event Note: History and physical reviewed. Still requiring BiPAP. Increased IV Lasix. Wean off BiPAP as tolerated. Speech therapy evaluation secondary to right upper lobe pneumonia, not completely rule out aspiration.
--- NOTE | 2023-05-27 13:31 | PC.OT ---
OT EVALUATION ORDERS RECEIVED. HOLD OT TODAY DUE TO LETHARGY AND PLACED ON BIPAP. WILL ATTEMPT AGAIN TOMORROW.
[2023-05-27] MEDS: FUROsemide 10 mg/mL SDV 4mL 40 MG IVP (20:13)
[2023-05-28] VITALS (13 sets, daily range): BP systolic 106–144; BP diastolic 65–89; PULSE 67–89; RESP 17–29; TEMP 36.6–36.8; O2SAT 93–99; BMI 37.2
[2023-05-28] MEDS: enoxaparin 40 mg/0.4 mL Syringe SUBCUT (01:53)
[2023-05-28] MEDS: ipratropium-albuterol 3 mL Neb INHALATION ×4 (02:20→20:29)
[2023-05-28] MEDS: azithromycin 500 MG in sodium chloride 0.9% 250 ML 250 MG IV (03:44)
[2023-05-28 05:16] LABS: Basophils % 0.3 %; Hematocrit 31.8 % (36-47); Lymphocytes # 0.3 10^3/uL (0.8-4.8); Lymphocytes % 3.7 %; Mean Corpuscular HGB Conc 29.9 g/dL (30-55); Mean Corpuscular Hemoglobin 25.5 pg (27-33); Mean Corpuscular Volume 85.5 fl (85-98); Mean Platelet Volume 9.4 fL (7.4-10.4); Monocytes # 0.4 10^3/uL (0.2-0.9); Monocytes % 4.7 %; Neutrophils # 6.79 10^3/uL (1.8-7.7); Neutrophils % 90.4 %; Nucleated Red Blood Cells % 0 %; Platelet Count 263 10^3/cmm (157-399); Red Blood Count 3.72 10^6/uL (3.85-5.65); Red Cell Distribution Width 16.3 % (12.1-15.1); White Blood Count 7.51 10^3/uL (3.29-11.43)
[2023-05-28 05:47] LABS: Alanine Aminotransferase 11 U/L (0-33); Alkaline Phosphatase 169 U/L (35-105); Anion Gap 16.1 (5-19); Aspartate Amino Transferase 10 U/L (0-32); Blood Urea Nitrogen 25 mg/dL (8-23); Calcium 7.8 mg/dL (8.5-10.5); Carbon Dioxide 29 mmol/L (22-29); Chloride 100 mmol/L (98-107); Creatinine Clr Calc Pharmacy 48.2286; Globulin 3.6 g/dL (1.3-4.6); Glucose 159 mg/dL (65-115); Magnesium 2.2 mg/dL (1.7-2.3); Osmolality Calculated 300 mOsm/kg (285-295); Potassium 4.1 mmol/L (3.5-5.1); Sodium 141 mmol/L (136-145); Total Bilirubin 0.2 mg/dL (0.15-1.2); Total Protein 6.6 g/dL (6.6-8.7)
--- NOTE | 2023-05-28 07:50 | P.PN_ITS ---
Documented by User: JOURDAN Best STDSEAMUS 05/28/23 08:10 Subjective 2 Subjective: Patient sitting up in chair this morning with the assistance of physical therapy. Mrs. Becerra noted to be on 2 L nasal cannula, continues to report a persistent cough. She denies pain, and shortness of breath at this time, overall feels better today. Medications: Reviewed: Yes Vitals/I&O/Wt Last Vital Signs Temp 97.9 F 05/28/23 04:00 Pulse 76 05/28/23 04:00 Resp 26 H 05/28/23 04:00 BP 127/77 05/28/23 04:00 Pulse Ox 96 05/28/23 04:00 O2 Del Method BiPAP 05/28/23 04:00 O2 Flow Rate 2 05/27/23 20:15 FiO2 36 05/28/23 02:24 05/27/23 05/28/23 05/28/23 22:59 06:59 14:59 Intake Total 100 / 270 250 / 520 Output Total 300 / 600 1000 / 1600 Balance -200 / -330 -750 / -1080 Weight last 48 hrs Weight 203 lb 7 oz Weight 203 lb 7 oz Weight 199 lb 4 oz Weight 195 lb 12.8 oz Weight 230 lb Physical Exam 2 Narrative: General exam is a white female, intermittent coughing, no distress. HEENT: Atraumatic and normocephalic. Oropharynx clear Neck is supple. No lymphadenopathy or thyromegaly. Cardiovascular regular rate and rhythm, no murmur, borderline tachycardic. Lungs sounds noted to be coarse, on 2 L nasal cannula. Abdomen is soft with positive bowel sounds. No obvious organomegaly exam is deferred Extremities bilateral 1+ edema. Scar on left ankle from surgery years ago. Skin see findings above Neuro no focal deficits Urinary Catheter Management: Mann: Cath Placed During This Visit: yes Reason for Continuing Indwelling Catheter: Other Urinary Catheter Date of Insertion: 05/27/23 Urinary Catheter Time of Insertion: 00:00 Data 05/28/23 04:35 05/28/23 04:35 Micro: Microbiology 05/26/23 23:45 Blood Culture - Preliminary Blood NEGATIVE TO DATE 05/26/23 23:42 Blood Culture - Preliminary Blood NEGATIVE TO DATE 05/27/23 03:16 Bacterial Antigens - Final Urine,Clean Catch 05/27/23 03:16 Legionella Urinary Antigen - Final Urine Catheterized A&P Assessment and plan (1) Acute hypercapnic respiratory failure: Acute respiratory failure with increased oxygen requirement currently on 2L NC and intermittently placed on BiPAP. Multifactorial respiratory failure with right upper lobe community-acquired pneumonia with cough productive of purulent appearing green sputum, increased cough. Continue ceftriaxone, azithromycin. Obtain Sputum culture. Urine bacterial antigens, urine Legionella antigen noted to be negative. MRSA PCR pending. Continue Decadron for severe exacerbation of COPD. Breathing treatments added. BiPAP support, wean down as tolerating. Continue Lasix 40 mg IV BID, continue for component of acute diastolic CHF exacerbation. Monitor SOM. Monitor for electrolyte normality with diuresis. Monitor on telemetry. Normal EF on last echocardiogram-July 2022. (2) Right upper lobe pneumonia: As above. Qualifiers: Pneumonia type: due to unspecified organism Qualified Code(s): J18.9 - Pneumonia, unspecified organism (3) COPD exacerbation: Severe exacerbation of COPD as above. (4) Acute diastolic heart failure: Plan History of DVT: DVT prophylaxis requested. HTN: Monitor blood pressure. Hypothyroidism: Requesting home medications to be confirmed. Resume levothyroxine. Requesting home medications to be confirmed, please review and resume once available. Coding Level of Care Code 98516 Diagnoses Acute hypercapnic respiratory failure J96.02 Right upper lobe pneumonia J18.9 Pneumonia type: due to unspecified organism COPD exacerbation J44.1 Acute diastolic heart failure I50.31 Time Spent (min) 36 Documented by User: Claude Parra MD 05/28/23 10:40 Physical Exam 2 Urinary Catheter Management: Mann: Cath Placed During This Visit: yes Data 05/28/23 04:35 05/28/23 04:35 A&P Assessment and plan (1) Acute hypercapnic respiratory failure: Acute respiratory failure with increased oxygen requirement currently on 2L NC and intermittently placed on BiPAP. Multifactorial respiratory failure with right upper lobe community-acquired pneumonia bacterial antigens, and Legionella negative Continue ceftriaxone, azithromycin. MRSA PCR pending. Continue Decadron for severe exacerbation of COPD. Breathing treatments added. Influenza and COVID were negative (2) Right upper lobe pneumonia: As above. Speech therapy has been consulted. Overall she did fairly well. Cannot completely rule out aspiration but less likely. Qualifiers: Pneumonia type: due to unspecified organism Qualified Code(s): J18.9 - Pneumonia, unspecified organism (3) COPD exacerbation: (4) Acute diastolic heart failure: Continue Lasix 40 mg IV BID, continue for component of acute diastolic CHF exacerbation. Renal function stable. Likely change to p.o. tomorrow. Monitor SOM. Monitor for electrolyte normality with diuresis. Monitor on telemetry. Normal EF on last echocardiogram-July 2022. Close follow-up of renal function tomorrow as Lasix is a potentially renal toxic medication. Attestations 2 Medical Necessity Statement*: Needs continued hospital stay for IV antibiotics related to pneumonia. Diagnoses Acute hypercapnic respiratory failure J96.02 Right upper lobe pneumonia J18.9 Pneumonia type: due to unspecified organism COPD exacerbation J44.1 Acute diastolic heart failure I50.31 Time Spent (min) 36
[2023-05-28] MEDS: dexamethasone 10 mg/mL INJ 6 MG IVP (08:08)
[2023-05-28] MEDS: pantoprazole DR 40 mg Tablet PO (08:08)
[2023-05-28] MEDS: FUROsemide 10 mg/mL SDV 4mL 40 MG IVP ×2 (08:08→20:01)
[2023-05-28 14:21] LABS: SARS Covid-2 Antigen negative (Negative)
[2023-05-28 15:34] LABS: Methicillin-Resist S.aureu PCR DETECTED (NOT DETECTED)
[2023-05-28] MEDS: BuSPIRONE 10 mg Tablet 5 MG PO (17:42)
[2023-05-28] MEDS: atorvastatin 40 mg Tablet PO (20:00)
[2023-05-28] MEDS: metoprolol tartrate 25 mg Tablet PO (20:00)
[2023-05-28] MEDS: cefTRIAXone 1,000 MG in sodium chloride 0.9% (plus) 50 ML 100 MG IV (20:01)
[2023-05-28] MEDS: budesonide 0.5 mg/2 mL Neb INHALATION (20:29)
[2023-05-29] VITALS (7 sets, daily range): BP systolic 106–148; BP diastolic 57–79; PULSE 63–91; RESP 16–25; TEMP 36.4–36.7; O2SAT 92–98; BMI 36.0
[2023-05-29] MEDS: ipratropium-albuterol 3 mL Neb INHALATION ×2 (02:08→08:50)
[2023-05-29] MEDS: enoxaparin 40 mg/0.4 mL Syringe SUBCUT (02:30)
[2023-05-29] MEDS: azithromycin 500 MG in sodium chloride 0.9% 250 ML 250 MG IV (03:50)
[2023-05-29] MEDS: guaiFENesin-dextromethorphan UDC 10 mL 5 ML PO (03:51)
[2023-05-29] MEDS: levothyroxine 200 mcg Tablet PO (05:05)
[2023-05-29 05:33] LABS: Basophils % 0.1 %; Eosinophils % 0.2 %; Hematocrit 33.4 % (36-47); Lymphocytes # 0.7 10^3/uL (0.8-4.8); Lymphocytes % 6.6 %; Mean Corpuscular HGB Conc 30.2 g/dL (30-55); Mean Corpuscular Hemoglobin 25.7 pg (27-33); Mean Platelet Volume 9.4 fL (7.4-10.4); Monocytes # 0.6 10^3/uL (0.2-0.9); Monocytes % 5.9 %; Neutrophils # 8.38 10^3/uL (1.8-7.7); Neutrophils % 85.3 %; Nucleated Red Blood Cells % 0 %; Platelet Count 325 10^3/cmm (157-399); Red Blood Count 3.93 10^6/uL (3.85-5.65); Red Cell Distribution Width 16.3 % (12.1-15.1); White Blood Count 9.83 10^3/uL (3.29-11.43)
[2023-05-29 05:49] LABS: Alanine Aminotransferase 11 U/L (0-33); Albumin Level 3.1 g/dL (3.5-5.2); Alkaline Phosphatase 126 U/L (35-105); Anion Gap 13.9 (5-19); Aspartate Amino Transferase 10 U/L (0-32); Blood Urea Nitrogen 30 mg/dL (8-23); Calcium 7.7 mg/dL (8.5-10.5); Carbon Dioxide 34 mmol/L (22-29); Chloride 98 mmol/L (98-107); Creatinine Clr Calc Pharmacy 48.2286; Globulin 3.2 g/dL (1.3-4.6); Glucose 115 mg/dL (65-115); Magnesium 1.7 mg/dL (1.7-2.3); Osmolality Calculated 301 mOsm/kg (285-295); Potassium 3.9 mmol/L (3.5-5.1); Sodium 142 mmol/L (136-145); Total Bilirubin 0.2 mg/dL (0.15-1.2); Total Protein 6.3 g/dL (6.6-8.7)
[2023-05-29] MEDS: aspirin 81 mg EC Tablet PO (06:09)
[2023-05-29] MEDS: sertraline 100 mg Tablet 200 MG PO (06:09)
[2023-05-29] MEDS: metoprolol tartrate 25 mg Tablet PO (08:10)
[2023-05-29] MEDS: BuSPIRONE 10 mg Tablet 5 MG PO (08:11)
[2023-05-29] MEDS: dexamethasone 10 mg/mL INJ 6 MG IVP (08:11)
[2023-05-29] MEDS: pantoprazole DR 40 mg Tablet PO (08:11)
[2023-05-29] MEDS: FUROsemide 10 mg/mL SDV 4mL 40 MG IVP ×2 (08:12→08:17)
[2023-05-29] MEDS: doxycycline 100 mg Tablet PO (08:27)
[2023-05-29] MEDS: budesonide 0.5 mg/2 mL Neb INHALATION (08:50)
--- NOTE | 2023-05-29 09:34 | PM.DCS ---
Discharge Providers Date of Admission: 05/27/23 01:17 Date of Discharge: May 29, 2023 Attending Provider at Admission: Stanley Vásquez Attending Provider at Discharge: Claude Parra MD Primary Care Provider: Viktor Baker MD Diagnoses at Discharge Discharge Diagnosis (1) Acute hypercapnic respiratory failure: Status: Acute (2) Right upper lobe pneumonia: Status: Acute Qualifiers: Pneumonia type: due to unspecified organism Qualified Code(s): J18.9 - Pneumonia, unspecified organism (3) COPD exacerbation: Status: Acute (4) Acute diastolic heart failure: Status: Acute Reason for Visit Reason for Visit: respiratory distress Hospital Course Hospital Course Michelle is a 78-year-old white female presenting to the hospital from a nursing facility with shortness of breath. She was significantly dyspneic and respiratory failure and required BiPAP. She was found to have acute diastolic heart failure for which she was diuresed as well as pneumonia. Viral studies were negative. MRSA later came back positive. She showed clinical improvement and was able to wean off BiPAP. She was initially placed on Rocephin and azithromycin, later changing to Rocephin and doxycycline. Renal function stayed stable, with diuresis. By May 28 she was doing better, with improved respiratory exam and was down to her baseline oxygen requirement of 2 L. It was thought she could be discharged to the nursing facility on a new dose of Lasix, to complete a course of cefdinir and doxycycline, and to follow-up with her primary care provider at the nursing facility. BMP in approximately 3 days. Speech therapy did evaluate swallowing at the hospital, and no obvious aspiration noted. Discussed case with daughter, and patient. Daughter was able ask questions and agreed with the plan. Physical Exam Narrative: General exam no distress Cardiovascular regular rhythm Lungs clear but with diminished breath sounds Extremities no cyanosis clubbing. Trace edema. Urinary Catheter Management: Mann: Cath Placed During This Visit: yes, but has since been removed by the nurse Reason for Continuing Indwelling Catheter: Decision to DC Catheter Urinary Catheter Date of Insertion: 05/27/23 Urinary Catheter Time of Insertion: 00:00 Date Urinary Catheter Removed: 05/28/23 Time Urinary Catheter Discontinued: 11:30 Discharge Data Studies Completed and Pending Completed Studies During Hospitalization Category Date Time Status XR chest 1V portable [id number] Stat Exams 05/26/23 23:18 Completed Pending at discharge Category Date Time Status Blood Culture Stat Lab 05/26/23 23:45 Results Complete Blood Count w/Auto AM LABS Lab 05/30/23 04:00 Ordered Comprehensive Metabolic Panel AM LABS Lab 05/30/23 04:00 Ordered Magnesium AM LABS Lab 05/30/23 04:00 Ordered Sputum Culture and Gram Stain Routine Lab 05/27/23 02:18 Uncollected Radiology Impressions Chest X-Ray 05/26/23 23:18 IMPRESSION: Hazy airspace opacity in the inferior right upper lobe, new from prior, concerning for infiltrate/infection. Laboratory Results WBC 9.83 10^3/uL (3.29-11.43) 05/29/23 05:04 RBC 3.93 10^6/uL (3.85-5.65) 05/29/23 05:04 Hgb 10.10 g/dL (11.27-16.99) L 05/29/23 05:04 Hct 33.4 % (36-47) L 05/29/23 05:04 MCV 85.0 fl (85-98) 05/29/23 05:04 MCH 25.7 pg (27-33) L 05/29/23 05:04 MCHC 30.2 g/dL (30-55) 05/29/23 05:04 RDW 16.3 % (12.1-15.1) H 05/29/23 05:04 Plt Count 325 10^3/cmm (157-399) 05/29/23 05:04 MPV 9.4 fL (7.4-10.4) 05/29/23 05:04 Neut % (Auto) 85.3 % 05/29/23 05:04 Lymph % (Auto) 6.6 % 05/29/23 05:04 [place] % (Auto) 5.9 % 05/29/23 05:04 Eos % (Auto) 0.2 % 05/29/23 05:04 Baso % (Auto) 0.1 % 05/29/23 05:04 Neut # (Auto) 8.38 10^3/uL (1.8-7.7) H 05/29/23 05:04 Lymph # (Auto) 0.7 10^3/uL (0.8-4.8) L 05/29/23 05:04 [place] # (Auto) 0.6 10^3/uL (0.2-0.9) 05/29/23 05:04 Eos # (Auto) 0.0 10^3/uL (0.0-0.8) 05/29/23 05:04 Baso # (Auto) 0.0 10^3/uL (0.0-0.1) 05/29/23 05:04 Nucleated RBC % (auto) 0 % 05/29/23 05:04 Nucleated RBCs # 0.0 /100WBC 05/29/23 05:04 Specimen Type Arterial 05/26/23 23:25 Sample Site Brachial, right 05/26/23 23:25 ABG pH 7.29 (7.35-7.45) L 05/26/23 23:25 ABG pCO2 60.6 mmHg (35-45) H* 05/26/23 23:25 ABG pO2 70.7 mmHg (80.0-100.0) L 05/26/23 23:25 ABG PO2/FiO2 Ratio 0 05/26/23 23:25 ABG HCO3 29.3 mmol/L (22-26) H 05/26/23 23:25 ABG Base Excess 1.6 mmol/L (-2.0-2.0) 05/26/23 23:25 Jordan Test Pos 05/26/23 23:25 Hematocrit 35.2 % (37-47) L 05/26/23 23:25 Hgb O2 Saturation 91.7 % (95-100) L 05/26/23 23:25 Carboxyhemoglobin 1.2 %THgb (0.4-20.1) 05/26/23 23:25 Methemoglobin 0.5 % (0.4-1.5) 05/26/23 23:25 Total Hemoglobin 11.5 g/dL (12-16) L 05/26/23 23:25 O2 Delivery Device Cont neb 05/26/23 23:25 O2 Liters/Min 5.0 % 05/26/23 23:25 FiO2 45.0 % 05/26/23 23:25 Blood And Plasma Laboratory Assistant ID [email or web address] 05/26/23 23:25 Sodium 142 mmol/L (136-145) 05/29/23 05:04 Potassium 3.9 mmol/L (3.5-5.1) 05/29/23 05:04 Chloride 98 mmol/L (98-107) 05/29/23 05:04 Carbon Dioxide 34 mmol/L (22-29) H 05/29/23 05:04 Anion Gap 13.9 (5-19) 05/29/23 05:04 BUN 30 mg/dL (8-23) H 05/29/23 05:04 Creatinine 1.0 mg/dL (0.5-0.9) H 05/29/23 05:04 GFR Calculation Not Reportable 05/29/23 05:04 Glucose 115 mg/dL (65-115) 05/29/23 05:04 Calculated Osmolality 301 mOsm/kg (285-295) H 05/29/23 05:04 Lactic Acid 1.0 mmol/L (0.5-2.2) 05/26/23 23:23 Calcium 7.7 mg/dL (8.5-10.5) L 05/29/23 05:04 Magnesium 1.7 mg/dL (1.7-2.3) 05/29/23 05:04 Total Bilirubin 0.2 mg/dL (0.15-1.2) 05/29/23 05:04 AST 10 U/L (0-32) 05/29/23 05:04 ALT 11 U/L (0-33) 05/29/23 05:04 Alkaline Phosphatase 126 U/L (35-105) H 05/29/23 05:04 Troponin T Baseline 40 ng/L (0-10) H 05/27/23 01:48 Troponin T 120 Minute 44.51 ng/L (0-10) H 05/27/23 03:36 Delta Troponin T 4.51 ABS# (0-10) 05/27/23 03:36 Troponin T Hi Sens 6Hr 35.77 ng/L (0-10) H 05/27/23 07:36 Troponin T Hi Sens 6Hr Delta -4.23 ng/L (0-12) L 05/27/23 07:36 NT-Pro-B Natriuret Pep 3526 pg/mL (0-450) H 05/26/23 23:23 Total Protein 6.3 g/dL (6.6-8.7) L 05/29/23 05:04 Albumin 3.1 g/dL (3.5-5.2) L 05/29/23 05:04 Globulin 3.2 g/dL (1.3-4.6) 05/29/23 05:04 Procalcitonin 0.45 ng/mL (0-0.5) 05/26/23 23:23 Influenza Type A Ag negative (Negative) 05/26/23 23:45 Influenza Type B Ag negative (Negative) 05/26/23 23:45 SARS-CoV-2 Ag (Rapid) negative (Negative) 05/28/23 13:51 MRSA (PCR) Detected (NOT DETECTED) A 05/27/23 01:55 Vitals Last Vital Signs Temp 97.6 F 05/29/23 08:00 Pulse 74 05/29/23 08:10 Resp 16 05/29/23 08:00 BP 127/57 05/29/23 08:00 Pulse Ox 96 05/29/23 08:00 O2 Del Method Nasal Cannula 05/29/23 08:00 O2 Flow Rate 2 05/29/23 08:00 FiO2 36 05/28/23 02:24 Discharge Plan Discharge Patient Disposition: Xfer SNF Condition: Stable Prescriptions: New furosemide [Lasix] 40 mg tablet 40 mg PO DAILY Qty: 30 0RF doxycycline monohydrate 100 mg Tablet 100 mg PO BID Qty: 14 0RF cefdinir 300 mg capsule 300 mg PO BID 7 Days Qty: 14 0RF Continued metoprolol tartrate 25 mg tablet 25 mg PO BID@08,20 Anoro Ellipta 62.5-25 mcg/actuation blister with device 1 inh INHALATION DAILY@07 albuterol sulfate [Ventolin HFA] 90 mcg/actuation HFA aerosol inhaler 2 puff INHALATION Q6H PRN (Reason: Shortness Of Breath) nitroglycerin 0.4 mg tablet, sublingual 0.4 mg SUBLINGUAL Q5M PRN (Reason: Chest Pain) Rx Instructions: do not exceed 3 doses per episode sertraline 100 mg Tablet 200 mg PO DAILY@07 atorvastatin 40 mg tablet 40 mg PO BEDTIME@20 acetaminophen [Tylenol] 325 mg Tablet 325 - 650 mg PO Q6H PRN (Reason: Pain) clonazepam 0.5 mg tablet 0.5 mg PO DAILY@07 clonazepam 1 mg tablet 1 mg PO BEDTIME@20 aspirin 81 mg Tablet,Delayed Release (Dr/Ec) 81 mg PO DAILY@07 bisacodyl [Dulcolax (bisacodyl)] 10 mg Suppository 10 mg GA DAILY PRN (Reason: Constipation) levothyroxine 200 mcg tablet 200 mcg PO DAILY@05 bisacodyl [Dulcolax (bisacodyl)] 5 mg Tablet,Delayed Release (Dr/Ec) 10 mg PO DAILY PRN (Reason: Constipation) buspirone 5 mg tablet 5 mg PO BID ipratropium-albuterol 0.5 mg-3 mg(2.5 mg base)/3 mL Solution For Nebulization 3 ml INHALATION Q6H PRN (Reason: Dyspnea) prednisone 20 mg tablet 20 mg PO QAM Rx Instructions: end date 05/28/2023 spironolactone 25 mg tablet 12.5 mg PO DAILY@07 lorazepam 0.5 mg tablet 0.5 mg PO BID PRN (Reason: Anxiety) Rx Instructions: end date 09/24/23 Vitamin D3 10 mcg (400 unit) Tablet 400 unit PO DAILY@07 ipratropium bromide 0.02 % Solution See Rx Instructions .ROUTE .COMPLEX Rx Instructions: one inhalation twice a day furosemide 40 mg tablet 40 mg PO DAILY@07 Rx Instructions: take with 20mg to =60mg Discontinued Lasix 20 mg Tablet 20 mg PO DAILY@07 Rx Instructions: take with 40mg to=60mg Discharge Orders: Discharge Order (Routine); Ordered 05/29/23 Ordered By: Claude Parra Referrals: [facility] [Outside] Viktor Baker MD [Primary Care Provider] - 4-7 days Discharge Diet: Cardiac Discharge Activity: Increase activity as tolerated Patient Instructions: Opioid Safety Activity Restrictions/Additional Instructions: Resume 2 L of oxygen per nasal cannula. Titrate for sat greater than or equal to 90% Take all medicine as prescribed Follow-up with primary care provider 3 to 5 days BMP on Thursday of next week Return for any concerns Discharge Attestations Time Spent in Discharge Care*: greater than 30 min Status at Discharge: Cognitive status at discharge: moderately impaired cognition, Behavioral status at discharge: cooperative, can be uncooperative and dependent in ADL's, Quality Metrics Clinical Quality Measures [ No reported AMI, CVA or VTE this stay] Coding Level of Care Code 14574 Total time (in minutes) for Discharge: 32 Diagnoses Acute hypercapnic respiratory failure J96.02 Right upper lobe pneumonia J18.9 Pneumonia type: due to unspecified organism COPD exacerbation J44.1 Acute diastolic heart failure I50.31
--- NOTE | 2023-05-29 10:30 | PC.SOCIAL ---
IMM Update pg 2 of IMM copy left @ bedside. Attempted to call patients and daughter, no answer, unable to leave message. IMM placed in chart but not signed as patient is demented and unable to sign.
== END 2023-05-29 13:08 | disposition skilled nursing facility (03) | DRG 189 ==
LOC: ER 05-27 01:02 → MEDSURG 05-27 01:17
PROVIDERS: Admitting Provider Internal Medicine; Emergency Provider Emergency Medicine; PCP Family Medicine; Visit Provider Internal Medicine
DX: J96.02 Acute respiratory failure with hypercapnia (principal); I50.31 Acute diastolic (congestive) heart failure; J18.9 Pneumonia, unspecified organism; J44.0 Chronic obstructive pulmonary disease with (acute) lower respiratory infection; J44.1 Chronic obstructive pulmonary disease with (acute) exacerbation; J96.01 Acute respiratory failure with hypoxia; I11.0 Hypertensive heart disease with heart failure; Z79.82 Long term (current) use of aspirin; Z87.891 Personal history of nicotine dependence; E03.9 Hypothyroidism, unspecified; E11.9 Type 2 diabetes mellitus without complications; D64.9 Anemia, unspecified; I25.10 Atherosclerotic heart disease of native coronary artery without angina pectoris; Z86.718 Personal history of other venous thrombosis and embolism; Z22.322 Carrier or suspected carrier of Methicillin resistant Staphylococcus aureus
CPT/HCPCS: 36415; 36600; 51702; 71045; 80053; 82805; 83605; 83735; 83880; 84145; 84484; 85025; 86403; 87040; 87426; 87449; 87641; 87804; 92523; 92610; 93005; 94640; 94660; 94664; 96365; 96372; 97161; 97165; 97530; 99285; J0456; J0696; J1100; J1650; J1940; J3475; J7050; J7626

== ENCOUNTER 2023-09-25 03:17 | Emergency (ER) | payer MEDICARE, MEDICAID, SELFPAY ==
[2023-09-25] VITALS (8 sets, daily range): BP systolic 105; BP diastolic 53; PULSE 63–78; RESP 18–25; TEMP 36.9; O2SAT 91–95; BMI 36.6
--- NOTE | 2023-09-25 03:14 | ECG_ITS ---
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 Measurements Intervals [place] Rate: 80 P: 28 [place]: 172 QRS: -11 QRSD: 89 T: 88 QT: 397 QTc: 459 Interpretive Statements SINUS RHYTHM MODERATE ST DEPRESSION [0.05+ mV ST DEPRESSION] Compared to ECG 05/27/2023 09:19:06 No significant changes Electronically Signed On 09-25-2023 20:52:15 CDT by Yulissa Colon M.D. [id number]
--- NOTE | 2023-09-25 03:22 | XRR_ITS ---
PROCEDURE INFORMATION: Exam: XR Chest Exam date and time: 09/25/2023 3:29 AM Age: 78 years old Clinical indication: Dyspnea TECHNIQUE: Imaging protocol: Radiologic exam of the chest. Views: 1 view. COMPARISON: CR XR chest 1V portable [id number] 05/26/2023 11:25 PM FINDINGS: Lungs: Questionable hazy bibasilar airspace opacities. Pleural spaces: No large pleural effusion. No distinct pneumothorax. Heart/Mediastinum: Cardiomediastinal silhouette is midline and stable in size. Bones/joints: No acute osseous findings. XR/XR chest 1V portable [id number] IMPRESSION: Questionable hazy bibasilar airspace opacities likely represent chronic lung markings. Mild atelectasis and/or infiltrates could have a similar appearance.
--- NOTE | 2023-09-25 03:23 | ECG_ITS ---
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 Measurements Intervals [place] Rate: 80 P: 28 [place]: 172 QRS: -11 QRSD: 89 T: 88 QT: 397 QTc: 459 Interpretive Statements SINUS RHYTHM MODERATE ST DEPRESSION [0.05+ mV ST DEPRESSION] Compared to ECG 05/27/2023 09:19:06 No significant changes Electronically Signed On 09-25-2023 20:38:25 CDT by Yulissa Colon M.D. [id number]
--- NOTE | 2023-09-25 03:28 | W.ED.SOB ---
HPI - SOB/Dyspnea General: Chief Complaint: Shortness of Breath/Dyspnea Stated Complaint: Resp Distress Time Seen by Provider: 09/25/23 03:22 History of Present Illness: HPI Narrative: Patient presents to the ER from EMS from senior care for low O2 sats. EMS said they were told that the sats was in the 80s however by the time they got there they was then giving her 1 DuoNeb breathing treatment and her sats was upwards of about 92 to 96%. She is now on 4 L of oxygen and O2 sats 94+ percent, she normally wears 3 L of oxygen. In the last several months she was admitted for CHF and pneumonia,. Patient currently denies any chest pain nausea vomiting diaphoresis. Patient is on Lasix for CHF. Review of Systems General: Reports: 10 or more systems reviewed and unremarkable except in HPI and below PFSH ED PFSH: Medical History Femur fracture, right History of femur fracture Acute encephalopathy CHF exacerbation Pneumonia Respiratory failure with hypoxia and hypercapnia Acute exacerbation of chronic obstructive airways disease COPD (chronic obstructive pulmonary disease) -follows up with Dr. Lane -no acute exacerbation, not oxygen dependent at baseline Dementia GI bleed Normocytic anemia -acute blood loss on chronic normocytic anemia; previously had macrocytic anemia secondary to vitamin B12 and folate deficiencies -plan for EGD and colonoscopy by Dr. Sapp; per my discussion with him, would like to wait at least 6-8 weeks post-op to allow for appropriate recovery -AC has been on hold; had previously been on Eliquis due to UE superficial DVT -s/p 4 units PRBCs due to acute drop in Hg (09/03 & 09/05); continue to closely monitor H/H. Hg increased to 9.4 today -baseline Hg appears to be around 11 -on PPI CAD (coronary artery disease) -NSTEMI and code blue during hospitalization in 04/2019 -has been following up with cardiology -Echo (04/2019): EF=64%, no RWMA, G1DD, mild MR, trace AR -had coronary angiogram (06/2019) showing normal coronaries -on statin, BB Hypocalcemia -previously noted; corrected Ca-8.5 -PTH wnl Congestive heart failure -no acute exacerbation currently -last Echo: EF=64%, no RWMA, G1DD, mild MR, trace AR DVT (deep venous thrombosis) -previously found to have R basilic vein DVT -had been on AC with Eliquis, now discontinued; not a good candidate for further anticoagulation due to underlying anemia NSTEMI (non-ST elevated myocardial infarction) Macrocytic anemia -has chronic macrocytic anemia; has evidence of vitamin B12 and folate deficiency -replacing vitamin B12, folate -also noted evidence of low iron Acute respiratory failure with hypoxia -Required intubation following CODE BLUE, extubated on 05/14 Lymphedema Non-insulin dependent type 2 diabetes mellitus -A1c-5.5 -Acchucheks, hypoglycemia precautions, ISS Hypertension -VSS; continue to monitor Hypothyroidism -Hx of thyroid cancer s/p thyroidectomy with acquired hypothyroidism -continue levothyroxine Surgical History H/O esophagogastroduodenoscopy (09/20/19) Status post colonoscopy with polypectomy (09/20/19) S/P cholecystectomy History of ankle surgery H/O thyroidectomy Family History Other Breast cancer CAD (coronary artery disease) Diabetes Hypertension Social History Smoking and tobacco/nicotine status: former use of tobacco/nicotine Quit status (tobacco/nicotine): has quit using Former quit date comment: Smoked briefly in her teens. Alcohol intake: never Substance/Drug Use: never Lives independently: Yes Household members: none Housing: Apartment Current occupational status: disabled Do you think of yourself as: Straight/Heterosexual Current gender identity: Female Physical Exam Const: COMMON NORMALS: no acute distress, average body habitus, patient oriented x3, no limitations, healthy appearing, alert and well nourished HENMT: COMMON NORMALS: normocephalic, atraumatic, hearing grossly normal bilaterally, external ears normal, Normal external nose present and moist oral mucous membranes HEAD & SCALP: normocephalic and atraumatic NOSE: Normal external nose present EXTERNAL EAR: Yes external ears normal Neck/C-Spine: COMMON NORMALS: no JVD Chest: COMMONS NORMALS: normal inspection of the chest and normal palpation of entire chest wall Resp: COMMON NORMALS: normal respiratory effort, No retractions and No use of accessory muscles; negative for clear to auscultation bilaterally (Mild wheezes and rails throughout) AUSCULTATION: not clear to auscultation bilaterally (Mild wheezes and rails throughout) Cardio: COMMON NORMALS: no JVD, regular rate, regular rhythm, S1 normal heart sound present, S2 normal heart sound present, No gallops present (Cardio), No clicks present (Cardio) and No murmurs present (Cardio) RATE: regular rate RHYTHM: regular rhythm HEART SOUNDS: S1 normal heart sound present and S2 normal heart sound present GI: COMMON NORMALS: Normal to inspection, nondistended, normoactive bowel sounds present, Soft to palpation, non-tender, No hepatosplenomegaly present and no masses PALPATION: Yes Soft to palpation and Yes No hepatosplenomegaly present Extremity: NARRATIVE EXTREMITY EXAM: 1+ pitting edema bilateral lower extremities up to the knees Neuro: COMMON NORMALS: patient oriented x3 SENSORIUM/ORIENTATION: Yes alert Course Vital Signs: Vital signs: Vital Signs Temperature 98.5 F 09/25/23 03:19 Pulse Rate 63 09/25/23 10:01 Respiratory Rate 18 09/25/23 10:01 Blood Pressure 105/53 09/25/23 06:34 Pulse Oximetry 95 09/25/23 06:34 Oxygen Delivery Me thod Nasal Cannula 09/25/23 06:34 Oxygen Flow Rate 2 09/25/23 06:34 MDM - SOB/Dyspnea Medical Decision Making Patient had lab work obtained and chest x-ray, it is suggested that she is in worsening fluid retention, patient be given extra dose of Lasix here in the ER and be sent home with instructions to take extra dose of Lasix for the next 3 days and follow-up with her PCP. Differential Diagnosis Likely acute exacerbation of chronic obstructive airways disease and congestive heart failure; Unlikely community acquired pneumonia, asthma with exacerbation or pulmonary embolism Medical Records I reviewed the patient's medical records. Lab Data I reviewed the patient's lab results. 09/25/23 03:19 09/25/23 03:19 Labs/Radiology: Radiology Impressions Chest X-Ray 09/25/23 03:22 IMPRESSION: Questionable hazy bibasilar airspace opacities likely represent chronic lung markings. Mild atelectasis and/or infiltrates could have a similar appearance. Laboratory Results WBC 6.82 10^3/uL (3.29-11.43) 09/25/23 03:19 RBC 4.02 10^6/uL (3.85-5.65) 09/25/23 03:19 Hgb 10.40 g/dL (11.27-16.99) L 09/25/23 03:19 Hct 32.8 % (36-47) L 09/25/23 03:19 MCV 81.6 fl (85-98) L 09/25/23 03:19 MCH 25.9 pg (27-33) L 09/25/23 03:19 MCHC 31.7 g/dL (30-55) 09/25/23 03:19 RDW 16.5 % (12.1-15.1) H 09/25/23 03:19 Plt Count 273 10^3/cmm (157-399) 09/25/23 03:19 MPV 9.0 fL (7.4-10.4) 09/25/23 03:19 Neut % (Auto) 83.7 % 09/25/23 03:19 Lymph % (Auto) 9.5 % 09/25/23 03:19 Darke % (Auto) 4.8 % 09/25/23 03:19 Eos % (Auto) 1.2 % 09/25/23 03:19 Baso % (Auto) 0.4 % 09/25/23 03:19 Neut # (Auto) 5.70 10^3/uL (1.8-7.7) 09/25/23 03:19 Lymph # (Auto) 0.7 10^3/uL (0.8-4.8) L 09/25/23 03:19 Darke # (Auto) 0.3 10^3/uL (0.2-0.9) 09/25/23 03:19 Eos # (Auto) 0.1 10^3/uL (0.0-0.8) 09/25/23 03:19 Baso # (Auto) 0.0 10^3/uL (0.0-0.1) 09/25/23 03:19 Nucleated RBC % (auto) 0 % 09/25/23 03:19 Nucleated RBCs # 0.0 /100WBC 09/25/23 03:19 Specimen Type Arterial 09/25/23 03:42 Sample Site Radial, right 09/25/23 03:42 ABG pH 7.38 (7.35-7.45) 09/25/23 03:42 ABG pCO2 49.9 mmHg (35-45) H 09/25/23 03:42 ABG pO2 76.6 mmHg (80.0-100.0) L 09/25/23 03:42 ABG HCO3 29.8 mmol/L (22-26) H 09/25/23 03:42 ABG O2 Saturation 95.7 09/25/23 03:42 ABG Base Excess 3.9 mmol/L (-2.0-2.0) H 09/25/23 03:42 Jordan Test Pos 09/25/23 03:42 A-a O2 Gradient 1.4 mmHg (5-10) L 09/25/23 03:42 Hematocrit 32.3 % (37-47) L 09/25/23 03:42 Hgb O2 Saturation 94.3 % (95-100) L 09/25/23 03:42 Carboxyhemoglobin 1.2 %THgb (0.4-20.1) 09/25/23 03:42 Methemoglobin 0.2 % (0.4-1.5) L 09/25/23 03:42 Total Hemoglobin 10.5 g/dL (12-16) L 09/25/23 03:42 Sodium 133.0 mmol/L (131-143) 09/25/23 03:42 Potassium 3.8 mmol/L (3.5-5.0) 09/25/23 03:42 Glucose 120.0 mg/dL (70-115) H 09/25/23 03:42 Ionized Calcium 1.0 mmol/L (1.1-1.4) L 09/25/23 03:42 O2 Delivery Device Nc 09/25/23 03:42 O2 Liters/Min 2.0 % 09/25/23 03:42 Customer Care Associate ID Cl 09/25/23 03:42 Sodium 134 mmol/L (136-145) L 09/25/23 03:19 Potassium 4.3 mmol/L (3.5-5.1) 09/25/23 03:19 Chloride 93 mmol/L (98-107) L 09/25/23 03:19 Carbon Dioxide 28 mmol/L (22-29) 09/25/23 03:19 Anion Gap 17.3 (5-19) 09/25/23 03:19 BUN 18 mg/dL (8-23) 09/25/23 03:19 Creatinine 0.9 mg/dL (0.5-0.9) 09/25/23 03:19 GFR Calculation Not Reportable 09/25/23 03:19 Glucose 115 mg/dL (65-115) 09/25/23 03:19 Calculated Osmolality 281 mOsm/kg (285-295) L 09/25/23 03:19 Calcium 7.2 mg/dL (8.5-10.5) L 09/25/23 03:19 Magnesium 1.6 mg/dL (1.7-2.3) L 09/25/23 03:19 Total Bilirubin 0.4 mg/dL (0.15-1.2) 09/25/23 03:19 AST 10 U/L (0-32) 09/25/23 03:19 ALT < 5 U/L (0-33) 09/25/23 03:19 Alkaline Phosphatase 98 U/L (35-105) 09/25/23 03:19 Troponin T Baseline 20 ng/L (0-10) H 09/25/23 03:19 Troponin T 120 Minute 24.04 ng/L (0-10) H 09/25/23 05:30 Delta Troponin T 4.04 ABS# (0-10) 09/25/23 05:30 NT-Pro-B Natriuret Pep 691 pg/mL (0-450) H 09/25/23 03:19 Total Protein 6.0 g/dL (6.6-8.7) L 09/25/23 03:19 Albumin 3.5 g/dL (3.5-5.2) 09/25/23 03:19 Globulin 2.5 g/dL (1.3-4.6) 09/25/23 03:19 Procalcitonin 0.08 ng/mL (0-0.5) 09/25/23 03:19 Influenza Type A Ag negative (Negative) 09/25/23 03:27 Influenza Type B Ag negative (Negative) 09/25/23 03:27 SARS-CoV-2 Ag (Rapid) negative (Negative) 09/25/23 03:27 All radiology interpretation(s) finalized by discharge Discharge Plan Discharge Patient Disposition: Home Clinical Impression: Congestive heart failure Qualifiers: Heart failure type: unspecified Heart failure chronicity: unspecified Qualified Code(s): I50.9 - Heart failure, unspecified Condition: Stable Prescriptions: No Action metoprolol tartrate 25 mg tablet 25 mg PO BID@08,20 Anoro Ellipta 62.5-25 mcg/actuation blister with device 1 inh INHALATION DAILY@07 albuterol sulfate [Ventolin HFA] 90 mcg/actuation HFA aerosol inhaler 2 puff INHALATION Q6H PRN (Reason: Shortness Of Breath) nitroglycerin 0.4 mg tablet, sublingual 0.4 mg SUBLINGUAL Q5M PRN (Reason: Chest Pain) Rx Instructions: do not exceed 3 doses per episode sertraline 100 mg Tablet 200 mg PO DAILY@07 atorvastatin 40 mg tablet 40 mg PO BEDTIME@20 acetaminophen [Tylenol] 325 mg Tablet 325 - 650 mg PO Q6H PRN (Reason: Pain) clonazepam 0.5 mg tablet 0.5 mg PO DAILY@07 clonazepam 1 mg tablet 1 mg PO BEDTIME@20 aspirin 81 mg Tablet,Delayed Release (Dr/Ec) 81 mg PO DAILY@07 bisacodyl [Dulcolax (bisacodyl)] 10 mg Suppository 10 mg VA DAILY PRN (Reason: Constipation) levothyroxine 200 mcg tablet 200 mcg PO DAILY@05 bisacodyl [Dulcolax (bisacodyl)] 5 mg Tablet,Delayed Release (Dr/Ec) 10 mg PO DAILY PRN (Reason: Constipation) buspirone 5 mg tablet 5 mg PO BID ipratropium-albuterol 0.5 mg-3 mg(2.5 mg base)/3 mL Solution For Nebulization 3 ml INHALATION Q6H PRN (Reason: Dyspnea) prednisone 20 mg tablet 20 mg PO QAM Rx Instructions: end date 05/28/2023 spironolactone 25 mg tablet 12.5 mg PO DAILY@07 lorazepam 0.5 mg tablet 0.5 mg PO BID PRN (Reason: Anxiety) Rx Instructions: end date 09/24/23 Vitamin D3 10 mcg (400 unit) Tablet 400 unit PO DAILY@07 ipratropium bromide 0.02 % Solution See Rx Instructions .ROUTE .COMPLEX Rx Instructions: one inhalation twice a day furosemide 40 mg tablet 40 mg PO DAILY@07 Rx Instructions: take with 20mg to =60mg doxycycline monohydrate 100 mg Tablet 100 mg PO BID Qty: 14 0RF Lasix 40 mg tablet 40 mg PO DAILY Qty: 30 0RF Discharge Orders: Discharge ED (Routine); Ordered 09/25/23 Ordered By: Guillermo Ocampo Referrals: Viktor Baker MD [Primary Care Provider] - 1 week Patient Instructions: Congestive Heart Failure Activity Restrictions/Additional Instructions: You are given additional 40 mg Lasix in the ER if 3 or IV. Please increase your daily Lasix from 40 mg daily to 80 mg daily for the next 3 days then go back to your 40 mg. This should help you diurese off any excess fluid. Please follow-up with your family practice physician in the next 7 days for further evaluation and treatment. If your breathing gets worse please feel free to return to the ER. Coding Level of Care Code ED Systems Integration Advisor for Idania Allison
[2023-09-25] MEDS: albuterol 2.5 mg/3 mL Neb INHALATION (03:35)
[2023-09-25 03:47] LABS: Basophils % 0.4 %; Eosinophils # 0.1 10^3/uL (0.0-0.8); Eosinophils % 1.2 %; Hematocrit 32.8 % (36-47); Lymphocytes # 0.7 10^3/uL (0.8-4.8); Lymphocytes % 9.5 %; Mean Corpuscular HGB Conc 31.7 g/dL (30-55); Mean Corpuscular Hemoglobin 25.9 pg (27-33); Mean Corpuscular Volume 81.6 fl (85-98); Monocytes # 0.3 10^3/uL (0.2-0.9); Monocytes % 4.8 %; Neutrophils % 83.7 %; Nucleated Red Blood Cells % 0 %; Platelet Count 273 10^3/cmm (157-399); Red Blood Count 4.02 10^6/uL (3.85-5.65); Red Cell Distribution Width 16.5 % (12.1-15.1); White Blood Count 6.82 10^3/uL (3.29-11.43)
[2023-09-25 03:52] LABS: ABG PCO2 49.9 mmHg (35-45); ABG PH Result 7.38 (7.35-7.45); Alveolar-Arterial Oxygen Gradi 1.4 mmHg (5-10); Arterial Blood Gas Hematocrit 32.3 % (37-47); Base Excess ABG 3.9 mmol/L (-2.0-2.0); Blood Gas Allen Test Pos; Blood Gas Sample Type Arterial; Carboxyhemoglobin 1.2 %THgb (0.4-20.1); HCO3 ABG 29.8 mmol/L (22-26); HGB O2 Sat 94.3 % (95-100); Methemoglobin 0.2 % (0.4-1.5); Oxygen Saturation ABG 95.7; PO2 ABG 76.6 mmHg (80.0-100.0); Potassium Level - ABG 3.8 mmol/L (3.5-5.0); Total Hemoglobin 10.5 g/dL (12-16)
[2023-09-25 03:53] LABS: Blood Gas Operator Identificat CL; Blood Gas Sample Site Radial, right; Oxygen Device NC
[2023-09-25 04:05] LABS: Influenza A by IFA negative (Negative); Influenza B by IFA negative (Negative)
[2023-09-25 04:06] LABS: SARS Covid-2 Antigen negative (Negative)
[2023-09-25 04:12] LABS: Troponin(5th) Baseline 20 ng/L (0-10)
[2023-09-25 04:17] LABS: Alanine Aminotransferase < 5 U/L (0-33); Albumin Level 3.5 g/dL (3.5-5.2); Alkaline Phosphatase 98 U/L (35-105); Anion Gap 17.3 (5-19); Aspartate Amino Transferase 10 U/L (0-32); Blood Urea Nitrogen 18 mg/dL (8-23); Calcium 7.2 mg/dL (8.5-10.5); Carbon Dioxide 28 mmol/L (22-29); Chloride 93 mmol/L (98-107); Globulin 2.5 g/dL (1.3-4.6); Glucose 115 mg/dL (65-115); Magnesium 1.6 mg/dL (1.7-2.3); Osmolality Calculated 281 mOsm/kg (285-295); Potassium 4.3 mmol/L (3.5-5.1); Sodium 134 mmol/L (136-145); Total Bilirubin 0.4 mg/dL (0.15-1.2)
[2023-09-25 04:21] LABS: NT Pro B Type Natriuretic Pept 691 pg/mL (0-450)
[2023-09-25] MEDS: FUROsemide 10 mg/mL SDV 4mL 40 MG IVP (04:38)
[2023-09-25 04:48] LABS: Procalcitonin 0.08 ng/mL (0-0.5)
--- NOTE | 2023-09-25 05:27 | ECG_ITS ---
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 Measurements Intervals [place] Rate: 78 P: 85 SC: 167 QRS: -2 QRSD: 96 T: 71 QT: 391 QTc: 448 Interpretive Statements SINUS RHYTHM NONSPECIFIC T-WAVE ABNORMALITY Compared to ECG 09/25/2023 03:14:48 T-wave abnormality now present ST (T wave) deviation no longer present Electronically Signed On 09-25-2023 20:52:22 CDT by Yulissa Colon M.D. [email or web address] Scheduling [id number]
[2023-09-25 05:56] LABS: Troponin 5 2HR 24.04 ng/L (0-10); Troponin 5 2HR Delta 4.04 ABS# (0-10)
--- NOTE | 2023-09-25 06:37 | PC.NURSE ---
Gave Inez BARROW at [facility] status update. All questions answered at time of report.
--- NOTE | 2023-09-25 09:08 | PC.NURSE ---
this nurse spoke with pt's daughter, gave update.
--- NOTE | 2023-09-25 09:50 | PC.NURSE ---
pt report given to [facility] @[id number], no further questions.
== END 2023-09-25 10:07 | disposition home or self-care (01) ==
PROVIDERS: Emergency Provider Emergency Medicine; PCP Family Medicine
DX: I11.0 Hypertensive heart disease with heart failure (principal); I50.9 Heart failure, unspecified; Z79.82 Long term (current) use of aspirin; Z11.52 Encounter for screening for COVID-19; Z87.891 Personal history of nicotine dependence; J44.9 Chronic obstructive pulmonary disease, unspecified; F03.90 Unspecified dementia, unspecified severity, without behavioral disturbance, psychotic disturbance, mood disturbance, and anxiety; I25.10 Atherosclerotic heart disease of native coronary artery without angina pectoris; I25.2 Old myocardial infarction; Z85.850 Personal history of malignant neoplasm of thyroid
CPT/HCPCS: 36600; 71045; 80051; 80053; 82330; 82805; 83735; 83880; 84145; 84484; 85025; 87426; 87804; 93005; 94640; 96374; 99285; J1940; J7613

== ENCOUNTER 2024-05-20 15:45 | Inpatient (IN) | payer MEDICARE, MEDICAID, SELFPAY ==
[2024-05-20] VITALS (26 sets, daily range): BP systolic 91–138; BP diastolic 37–57; PULSE 68–101; RESP 20–35; TEMP 36.8; O2SAT 95–100; BMI 36.6
--- NOTE | 2024-05-20 15:51 | ED_ITS ---
HPI - SOB/Dyspnea 2 General: Chief Complaint: Shortness of Breath/Dyspnea Stated Complaint: SOB Time Seen by Provider: 05/20/24 15:46 History of Present Illness: HPI Narrative: 79-year-old female with a history of obe sity, COPD and chronic hypoxemic respiratory failure on around 3 to 4 L nasal cannula at all times, hypertension, coronary artery disease, diabetes, chronic kidney disease, vascular dementia, depression, hypothyroidism and GERD who presents to the emergency room by ambulance from a long term with worsening shortness of breath. She does have a DNR CODE STATUS listed in her paperwork. However when I discussed with her and with her she would not want CPR but she would want intubation if needed. Related Data Home Medications ?Medication ?Instructions ?Recorded ?Confirmed albuterol sulfate 90 mcg/actuation 2 puff inhalation Q 6H PRN 07/06/19 05/20/24 aerosol inhaler (Ventolin HFA) Shortness Of Breath umeclidinium 62.5 mcg-vilanterol 1 inh inhalation RAISA Y@07/06/19 05/20/24 25 mcg/actuation powdr for inhalation (Anoro Ellipta) nitroglycerin 0.4 mg sublingual 0.4 mg sublingual Q5M PRN Chest 07/26/19 05/20/24 tablet Pain sertraline 100 mg tablet 200 mg PO DAILY@10/18/19 05/20/24 acetaminophen 325 mg tablet 325 - 650 mg PO Q6H PRN Pa in 07/31/22 05/20/24 (Tylenol) aspirin 81 mg tablet,delayed 81 mg PO DAILY@ 3 05/20/24 release atorvastatin 40 mg tablet 40 mg PO BEDTIME@07/31/22 05/20/24 bisacodyl 10 mg rectal suppository 10 mg MT DAILY PRN Constipation 07/31/22 05/20/24 (Dulcolax (bisacodyl)) bisacodyl 5 mg tablet,delayed 10 mg PO DAILY PRN Const ipation 07/31/22 05/20/24 release (Dulcolax (bisacodyl)) clonazepam 0.5 mg tablet 0.5 mg PO DAILY@07/31/22 05/20/24 clonazepam 1 mg tablet 1 mg PO BEDTIME@07/31/22 05/20/24 levothyroxine 200 mcg tablet 200 mcg PO DAILY@07/3105/20/24 cholecalciferol (vitamin D3) 10 400 unit PO DAILY@07 0 05/27/23 05/20/24 mcg (400 unit) tablet (Vitamin D3) furosemide 40 mg tablet 40 mg PO DAILY@05/27/23 0 05/20/24 ipratropium 0.5 mg-albuterol 3 mg 3 ml inhalation Q6H PRN Dyspnea 05/27/23 05/20/24 (2.5 mg base)/3 mL nebulization soln prednisone 20 mg tablet 20 mg PO QAM 05/27/23 spironolactone 25 mg tablet 12.5 mg PO DAILY@05/20/24 buspirone 10 mg tablet 10 mg PO BID 05/20/24 menthol 0.44 %-zinc oxide 20.6 % 1 applic topical RAISA Y 05/20/24 05/20/24 topical ointment (Calmoseptine) Allergies Allergy/AdvReac Type Severity Reaction Status Date / Time methylprednisolone (From Allergy ALGY-Rash Verified 05/27/23 07:58 Solu-Medrol) piperacillin (From Zosyn) Allergy ALGY-Rash Verified 05/27/23 07:58 tazobactam (From Zosyn) Allergy ALGY-Rash Verified 05/27/23 07:58 Review of Systems 2 Narrative: Constitutional symptoms: Negative except as documented in HPI. Skin symptoms: Negative except as documented in HPI. Eye symptoms: Negative except as documented in HPI. ENMT symptoms: Negative except as documented in HPI. Respiratory symptoms: Negative except as documented in HPI. Cardiovascular symptoms: Negative except as documented in HPI. Gastrointestinal symptoms: Negative except as documented in HPI. Genitourinary symptoms: Negative except as documented in HPI. Musculoskeletal symptoms: Negative except as documented in HPI. Neurologic symptoms: Negative except as documented in HPI. Psychiatric symptoms: Negative except as documented in HPI. Endocrine symptoms: Negative except as documented in HPI. PFSH ED 2 PFSH: Medical History Femur fracture, right History of femur fracture Acute encephalopathy CHF exacerbation Pneumonia Respiratory failure with hypoxia and hypercapnia Acute exacerbation of chronic obstructive airways disease COPD (chronic obstructive pulmonary disease) -follows up with Dr. Lane -no acute exacerbation, not oxygen dependent at baseline Dementia GI bleed Normocytic anemia -acute blood loss on chronic normocytic anemia; previously had macrocytic anemia secondary to vitamin B12 and folate deficiencies -plan for EGD and colonoscopy by Dr. Sapp; per my discussion with him, would like to wait at least 6-8 weeks post-op to allow for appropriate recovery -AC has been on hold; had previously been on Eliquis due to UE superficial DVT -s/p 4 units PRBCs due to acute drop in Hg (09/03 & 09/05); continue to closely monitor H/H. Hg increased to 9.4 today -baseline Hg appears to be around 11 -on PPI CAD (coronary artery disease) -NSTEMI and code blue during hospitalization in 04/2019 -has been following up with cardiology -Echo (04/2019): EF=64%, no RWMA, G1DD, mild MR, trace AR -had coronary angiogram (06/2019) showing normal coronaries -on statin, BB Hypocalcemia -previously noted; corrected Ca-8.5 -PTH wnl Congestive heart failure -no acute exacerbation currently -last Echo: EF=64%, no RWMA, G1DD, mild MR, trace AR DVT (deep venous thrombosis) -previously found to have R basilic vein DVT -had been on AC with Eliquis, now discontinued; not a good candidate for further anticoagulation due to underlying anemia NSTEMI (non-ST elevated myocardial infarction) Macrocytic anemia -has chronic macrocytic anemia; has evidence of vitamin B12 and folate deficiency -replacing vitamin B12, folate -also noted evidence of low iron Acute respiratory failure with hypoxia -Required intubation following CODE BLUE, extubated on 05/14 Lymphedema Non-insulin dependent type 2 diabetes mellitus -A1c-5.5 -Acchucheks, hypoglycemia precautions, ISS Hypertension -VSS; continue to monitor Hypothyroidism -Hx of thyroid cancer s/p thyroidectomy with acquired hypothyroidism -continue levothyroxine Surgical History H/O esophagogastroduodenoscopy (09/20/19) Status post colonoscopy with polypectomy (09/20/19) S/P cholecystectomy History of ankle surgery H/O thyroidectomy Family History Other Breast cancer CAD (coronary artery disease) Diabetes Hypertension Social History Smoking and tobacco/nicotine status: former use of tobacco/nicotine Quit status (tobacco/nicotine): has quit using Former quit date comment: Smoked briefly in her teens. Alcohol intake: never Substance/Drug Use: never Lives independently: Yes Household members: none Housing: Apartment Current occupational status: disabled Do you think of yourself as: Straight/Heterosexual Current gender identity: Female Physical Exam 2 Narrative: EXAM NARRATIVE: General: Alert, moderate distress. Skin: Warm, dry. Head: Normocephalic, atraumatic. Neck: Supple, trachea midline. Eye: Extraocular movements are intact. Ears, nose, mouth and throat: Oral mucosa moist. Cardiovascular: Regular rate and rhythm, Normal peripheral perfusion. Respiratory: coarse, scattered wheeze, moderate increased wob. tachypnea, prolonged expiratory phase. breath sounds are equal, Symmetrical chest wall expansion. Gastrointestinal: Soft, Nontender, Non distended, Normal bowel sounds. Musculoskeletal: Normal ROM, no deformity. Neurological: Alert and oriented to person, place, time, and situation, No focal neurological deficit observed. Psychiatric: Cooperative, appropriate mood & affect. Course 2 Vital Signs: Vital signs: Vital Signs Temperature 98.2 F 05/20/24 15:49 Pulse Rate 86 05/20/24 17:48 Respiratory Rate 26 H 05/20/24 16:49 Blood Pressure 118/49 05/20/24 15:49 Pulse Oximetry 100 05/20/24 17:48 Oxygen Delivery Me thod BiPAP 05/20/24 16:49 Oxygen Flow Rate 40 05/20/24 16:49 Fraction of Inspir ed Oxygen 40 05/20/24 16:49 MDM - SOB/Dyspnea Medical Decision Making Differential diagnosis for patient with shortness of breath includes but is not limited to and based on the above HPI, review of systems and physical exam: Pneumonia. Bronchitis. Asthma or COPD with acute exacerbation. Acute coronary syndrome / NE. Pulmonary embolism. Anxiety. Congestive heart failure. Viral infections including influenza and Covid-19. Atrial fibrillation. Anxiety. Pleural effusion. Pneumothorax. Orders placed to evaluate differential diagnosis based on the above differential, HPI and physical exam EKG: Time 1634. Rate 83. Normal sinus rhythm, nonspecific ST-T changes, no ectopy, normal MT & QRS intervals, This was reviewed and interpreted by myself the ER physician at 1640. AB.3 2/117 on 6 L with a breathing treatment. Chest x-ray: No acute process. No infiltrate. No pneumothorax. This was reviewed and interpreted by myself the emergency room physician. I also reviewed the radiology report. Lab Review: Laboratory results were reviewed and interpreted by myself the emergency room physician. No leukocytosis. No anemia. Renal function is around her baseline of 25 and 1.1. proBNP is in the middle of her normal range at 1400. I reviewed the patient's medical record. Reexamination: Patient seems quite a bit improved as far as her work of breathing goes on a BiPAP. After breathing treatments. Nursing spoke with family who her a bit divided on whether she would be intubated or not. Initially she says she would and then she says she would not. Further discussion will need to be had. Still with some wheeze. However oxygen sats are good on the BiPAP. As is her work of breathing Consultation: I spoke with Dr. Albright who is on-call for the hospitalist service who agrees to admission. He examined the patient in the emergency room and recommends admission to the ICU. Assessment and plan: COPD with acute exacerbation Acute on chronic hypoxemic respiratory failure Hypercapnic respiratory failure ?IV Decadron, multiple updrafts, IV doxycycline. Placed on BiPAP. -I discussed the patient with the hospitalist on-call who is admitting the patient. - Discussed findings and plan with patient. Answered any questions. - All laboratory values were reviewed and interpreted personally by myself, the ER physician - All imaging was reviewed and interpreted personally by myself, the ER physician. - Evaluation and treatment of this problem were appropriate in the emergency setting Critical care -I spent a total of >35 minutes of critical care time managing the patient, independent of any other practitioner. -The time involved in the performance of separately reportable procedures was not counted towards critical care time. Lab Data 05/20/24 16:15 05/20/24 16:15 Labs/Radiology: Radiology Impressions Chest X-Ray 05/20/24 16:16 IMPRESSION: No acute findings. Laboratory Results WBC 8.11 10^3/uL (3.29-11.43) 05/20/24 16:15 RBC 4.39 10^6/uL (3.85-5.65) 05/20/24 16:15 Hgb 11.20 g/dL (11.27-16.99) L 05/20/24 16:15 Hct 36.5 % (36-47) 05/20/24 16:15 MCV 83.1 fl (85-98) L 05/20/24 16:15 MCH 25.5 pg (27-33) L 05/20/24 16:15 MCHC 30.7 g/dL (30-55) 05/20/24 16:15 RDW 16.7 % (12.1-15.1) H 05/20/24 16:15 Plt Count 197 10^3/cmm (157-399) 05/20/24 16:15 MPV 9.6 fL (7.4-10.4) 05/20/24 16:15 Neut % (Auto) 94.5 % 05/20/24 16:15 Lymph % (Auto) 2.1 % 05/20/24 16:15 [place] % (Auto) 2.8 % 05/20/24 16:15 Eos % (Auto) 0.1 % 05/20/24 16:15 Baso % (Auto) 0.0 % 05/20/24 16:15 Neut # (Auto) 7.66 10^3/uL (1.8-7.7) 05/20/24 16:15 Lymph # (Auto) 0.2 10^3/uL (0.8-4.8) L 05/20/24 16:15 [place] # (Auto) 0.2 10^3/uL (0.2-0.9) 05/20/24 16:15 Eos # (Auto) 0.0 10^3/uL (0.0-0.8) 05/20/24 16:15 Baso # (Auto) 0.0 10^3/uL (0.0-0.1) 05/20/24 16:15 Nucleated RBC % (auto) 0 % 05/20/24 16:15 Nucleated RBCs # 0.0 /100WBC 05/20/24 16:15 Specimen Type Arterial 05/20/24 16:10 Sample Site Radial, left 05/20/24 16:10 ABG pH 7.32 (7.35-7.45) L 05/20/24 16:10 ABG pCO2 57.9 mmHg (35-45) H 05/20/24 16:10 ABG pO2 117.0 mmHg (80.0-100.0) H 05/20/24 16:10 ABG HCO3 30.0 mmol/L (22-26) H 05/20/24 16:10 ABG O2 Saturation 98.9 05/20/24 16:10 ABG Base Excess 2.8 mmol/L (-2.0-2.0) H 05/20/24 16:10 Jordan Test Pos 05/20/24 16:10 A-a O2 Gradient Not Reportable 05/20/24 16:10 Hematocrit 36.4 % (37-47) L 05/20/24 16:10 Hgb O2 Saturation 97.1 % (95-100) 05/20/24 16:10 Carboxyhemoglobin 1.0 %THgb (0.4-20.1) 05/20/24 16:10 Methemoglobin 0.9 % (0.4-1.5) 05/20/24 16:10 Total Hemoglobin 11.9 g/dL (12-16) L 05/20/24 16:10 Sodium 138.0 mmol/L (131-143) 05/20/24 16:10 Potassium 4.0 mmol/L (3.5-5.0) 05/20/24 16:10 Glucose 185.0 mg/dL (70-115) H 05/20/24 16:10 Ionized Calcium 1.0 mmol/L (1.1-1.4) L 05/20/24 16:10 O2 Delivery Device Nc 05/20/24 16:10 O2 Liters/Min 6.0 % 05/20/24 16:10 Alarm Installation Technician ID Broma 05/20/24 16:10 Sodium 135 mmol/L (136-145) L 05/20/24 16:15 Potassium 4.3 mmol/L (3.5-5.1) 05/20/24 16:15 Chloride 93 mmol/L (98-107) L 05/20/24 16:15 Carbon Dioxide 27 mmol/L (22-29) 05/20/24 16:15 Anion Gap 19.3 (5-19) H 05/20/24 16:15 BUN 25 mg/dL (8-23) H 05/20/24 16:15 Creatinine 1.1 mg/dL (0.5-0.9) H 05/20/24 16:15 GFR Calculation Not Reportable 05/20/24 16:15 Glucose 184 mg/dL (65-115) H 05/20/24 16:15 Calculated Osmolality 289 mOsm/kg (285-295) 05/20/24 16:15 Lactic Acid 1.9 mmol/L (0.5-2.2) 05/20/24 16:15 Calcium 7.1 mg/dL (8.5-10.5) L 05/20/24 16:15 Total Bilirubin 0.5 mg/dL (0.15-1.2) 05/20/24 16:15 AST 10 U/L (0-32) 05/20/24 16:15 ALT 7 U/L (0-33) 05/20/24 16:15 Alkaline Phosphatase 106 U/L (35-105) H 05/20/24 16:15 Troponin T Baseline 25 ng/L (0-10) H 05/20/24 16:15 C-Reactive Protein 46.4 mg/L (0.0-4.9) H 05/20/24 16:15 NT-Pro-B Natriuret Pep 1444 pg/mL (0-450) H 05/20/24 16:15 Total Protein 6.9 g/dL (6.6-8.7) 05/20/24 16:15 Albumin 4.0 g/dL (3.5-5.2) 05/20/24 16:15 Globulin 2.9 g/dL (1.3-4.6) 05/20/24 16:15 All radiology interpretation(s) finalized by discharge Discharge Plan Discharge Patient Disposition: Admitted As Inpatient Clinical Impression: Acute on chronic hypoxic respiratory failure, Hypercapnic respiratory failure, COPD with acute exacerbation Condition: Stable Coding Level of Care Code ED Merchandising Consultant for Idania Allison
--- NOTE | 2024-05-20 16:12 | PC.PHAR ---
patient is from [facility]
--- NOTE | 2024-05-20 16:16 | XRR_ITS ---
PROCEDURE INFORMATION: Exam: XR Chest Exam date and time: 05/20/2024 4:42 PM Age: 79 years old Clinical indication: Shortness of breath TECHNIQUE: Imaging protocol: Radiologic exam of the chest. Views: 1 view. COMPARISON: CR XR chest 1V portable [id number] 09/25/2023 3:29 AM FINDINGS: Lungs: Chronic interstitial changes in the lung bases. No consolidation. Pleural spaces: Unremarkable. No pleural effusion. No pneumothorax. Heart/Mediastinum: Unremarkable. No cardiomegaly. Bones/joints: Unremarkable. Clips in the neck. XR/XR chest 1V portable [id number] IMPRESSION: No acute findings.
[2024-05-20 16:23] LABS: Eosinophils % 0.1 %; Hematocrit 36.5 % (36-47); Lymphocytes # 0.2 10^3/uL (0.8-4.8); Lymphocytes % 2.1 %; Mean Corpuscular HGB Conc 30.7 g/dL (30-55); Mean Corpuscular Hemoglobin 25.5 pg (27-33); Mean Corpuscular Volume 83.1 fl (85-98); Mean Platelet Volume 9.6 fL (7.4-10.4); Monocytes # 0.2 10^3/uL (0.2-0.9); Monocytes % 2.8 %; Neutrophils # 7.66 10^3/uL (1.8-7.7); Neutrophils % 94.5 %; Nucleated Red Blood Cells % 0 %; Platelet Count 197 10^3/cmm (157-399); Red Blood Count 4.39 10^6/uL (3.85-5.65); Red Cell Distribution Width 16.7 % (12.1-15.1); White Blood Count 8.11 10^3/uL (3.29-11.43)
[2024-05-20 16:26] LABS: ABG PCO2 57.9 mmHg (35-45); ABG PH Result 7.32 (7.35-7.45); Arterial Blood Gas Hematocrit 36.4 % (37-47); Base Excess ABG 2.8 mmol/L (-2.0-2.0); Blood Gas Allen Test Pos; Blood Gas Operator Identificat BROMA; Blood Gas Sample Site Radial, left; Blood Gas Sample Type Arterial; HGB O2 Sat 97.1 % (95-100); Methemoglobin 0.9 % (0.4-1.5); Oxygen Device NC; Oxygen Saturation ABG 98.9; Total Hemoglobin 11.9 g/dL (12-16)
--- NOTE | 2024-05-20 16:34 | ECG_ITS ---
[facility]24[facility]05[facility]20 Pat Name: Michelle Becerra Department: Room: Gender: Female Net Mvc Developer: : 1945 Requested By: Nelida Arenas Order Number: [id number] Reading MD: AIDAN POLO Measurements Intervals [place] Rate: 83 P: 77 [place]: 177 QRS: 17 QRSD: 87 T: 90 QT: 381 QTc: 450 Interpretive Statements SINUS RHYTHM NONSPECIFIC ST & T-WAVE ABNORMALITY Compared to ECG 09/25/2023 05:27:16 No significant changes Electronically Signed On 05-24-2024 23:42:27 WILDLIFE BIOLOGY TECHNICIAN by AIDAN POLO [email or web address]
[2024-05-20 16:44] LABS: Lactic Sepsis W/Reflex 1.9 mmol/L (0.5-2.2)
[2024-05-20 16:48] LABS: Troponin(5th) Baseline 25 ng/L (0-10)
[2024-05-20] MEDS: dexamethasone 10 mg/mL INJ IVP (16:50)
[2024-05-20] MEDS: ipratropium-albuterol 3 mL Neb INHALATION ×2 (16:54→21:15)
[2024-05-20] MEDS: albuterol 2.5 mg/3 mL Neb INHALATION (16:54)
[2024-05-20 16:55] LABS: Alanine Aminotransferase 7 U/L (0-33); Alkaline Phosphatase 106 U/L (35-105); Anion Gap 19.3 (5-19); Aspartate Amino Transferase 10 U/L (0-32); Blood Urea Nitrogen 25 mg/dL (8-23); C Reactive Protein 46.4 mg/L (0.0-4.9); Calcium 7.1 mg/dL (8.5-10.5); Carbon Dioxide 27 mmol/L (22-29); Chloride 93 mmol/L (98-107); Creatinine Clr Calc Pharmacy 42.7236; Globulin 2.9 g/dL (1.3-4.6); Glucose 184 mg/dL (65-115); NT Pro B Type Natriuretic Pept 1444 pg/mL (0-450); Osmolality Calculated 289 mOsm/kg (285-295); Potassium 4.3 mmol/L (3.5-5.1); Sodium 135 mmol/L (136-145); Total Bilirubin 0.5 mg/dL (0.15-1.2); Total Protein 6.9 g/dL (6.6-8.7)
[2024-05-20] MEDS: doxycycline 100 MG in sodium chloride 0.9% (plus) 100 ML IV (18:02)
[2024-05-20 18:06] LABS: Influenza A POSITIVE (Negative); Influenza B NEGATIVE (Negative); Respiratory Syncytial Virus Ce NEGATIVE (Negative); SARS-CoV-2 PCR NEGATIVE (Negative)
--- NOTE | 2024-05-20 18:16 | ECG_ITS ---
[facility] Date: 2024-05-20 Pat Name: Michelle Becerra Department: Room: EDIP Gender: Female Distiller: : 1945 Requested By: Nelida Arenas Order Number: [id number] Reading MD: AIDAN POLO Measurements Intervals [place] Rate: 77 P: 76 [place]: 172 QRS: 31 QRSD: 88 T: 92 QT: 390 QTc: 443 Interpretive Statements SINUS RHYTHM NONSPECIFIC ST & T-WAVE ABNORMALITY Compared to ECG 05/20/2024 16:34:39 No significant changes Electronically Signed On 05-24-2024 23:51:54 MANNEQUIN MOLD MAKER by AIDAN POLO [email or web address]
--- NOTE | 2024-05-20 18:23 | PM.HP ---
Providers/Chief Complaint Admitting Physician: Gagan Albright MD Primary Care Provider: Viktor Baker MD Chief Complaint: SOB History of Present Illness Michelle Becerra is a 79 year old female with a past medical history of COPD, diastolic CHF, hypothyroidism, history of dementia, currently a resident at [facility]. Memory care unit. Currently patient alert to person, not to place, not to time she does not follow commands, is trying to remove her BiPAP mask, but is redirectable. She complains that she is short of breath, complains of a cough, she complains that she wants to be sent back to [facility]. But besides that she has no other complaints, she does have episodes of tachypnea, tachycardia, nasal flaring, mild suprasternal retractions, she is short of breath after a few words, she is on 40% BiPAP. I spoke to [facility] residential, spoke to nursing staff, they advised me that Michelle, is not ambulatory she can do sit to stand, she can feed herself but at times requires assistance, she has dementia, which is has been stable for the last few months, this afternoon, they found her with low O2 sats, in the 70s, she was short of breath so they had sent her to [facility] for further evaluation. Review of Systems Resp: Reports: dyspnea Medications/Allergies Home Medications ?Medication ?Instructions ?Recorded ?Confirmed ?Last Taken ?Type albuterol sulfate 90 mcg/actuation 2 puff inhalation Q6H PRN 07/06/19 05/20/24 09/19/19 History aerosol inhaler (Ventolin HFA) Shortness Of Breath umeclidinium 62.5 mcg-vilanterol 1 inh inhalation DAILY@07/06/19 05/20/24 05/20/24 History 25 mcg/actuation powdr for inhalation (Anoro Ellipta) nitroglycerin 0.4 mg sublingual 0.4 mg sublingual Q5M PRN Chest 07/26/19 05/20/24 Unknown History tablet Pain sertraline 100 mg tablet 200 mg PO DAILY@10/18/19 05/20/24 05/20/24 History acetaminophen 325 mg tablet 325 - 650 mg PO Q6H PRN Pain 07/31/22 05/20/24 Unknown History (Tylenol) aspirin 81 mg tablet,delayed 81 mg PO DAILY@07/31/22 05/20/24 05/20/24 History release atorvastatin 40 mg tablet 40 mg PO BEDTIME@07/31/22 05/20/24 05/19/24 History bisacodyl 10 mg rectal suppository 10 mg UT DAILY PRN Constipation 07/31/22 05/20/24 Unknown History (Dulcolax (bisacodyl)) bisacodyl 5 mg tablet,delayed 10 mg PO DAILY PRN Constipation 07/31/22 05/20/24 Unknown History release (Dulcolax (bisacodyl)) clonazepam 0.5 mg tablet 0.5 mg PO DAILY@07/31/22 05/20/24 05/20/24 History clonazepam 1 mg tablet 1 mg PO BEDTIME@07/31/22 05/20/24 05/19/24 History levothyroxine 200 mcg tablet 200 mcg PO DAILY@07/31/22 05/20/24 05/20/24 History cholecalciferol (vitamin D3) 10 400 unit PO DAILY@05/27/23 05/20/24 05/20/24 History mcg (400 unit) tablet (Vitamin D3) furosemide 40 mg tablet 40 mg PO DAILY@05/27/23 05/20/24 05/20/24 History ipratropium 0.5 mg-albuterol 3 mg 3 ml inhalation Q6H PRN Dyspnea 05/27/23 05/20/24 05/20/24 History (2.5 mg base)/3 mL nebulization soln prednisone 20 mg tablet 20 mg PO QAM 05/27/23 05/20/24 05/20/24 History spironolactone 25 mg tablet 12.5 mg PO DAILY@05/27/23 05/20/24 05/20/24 History buspirone 10 mg tablet 10 mg PO BID 05/20/24 05/20/24 05/20/24 History menthol 0.44 %-zinc oxide 20.6 % 1 applic topical DAILY 05/20/24 05/20/24 05/20/24 History topical ointment (Calmoseptine) Allergies Allergy/AdvReac Type Severity Reaction Status Date / Time methylprednisolone (From Allergy ALGY-Rash Verified 05/27/23 07:58 Solu-Medrol) piperacillin (From Zosyn) Allergy ALGY-Rash Verified 05/27/23 07:58 tazobactam (From Zosyn) Allergy ALGY-Rash Verified 05/27/23 07:58 PFSH Acute PFSH: Medical History (Updated 05/20/24 @ 18:28 by Gagan Albright MD) Acute respiratory failure with hypoxia -Required intubation following CODE BLUE, extubated on 05/14 Femur fracture, right History of femur fracture Acute encephalopathy CHF exacerbation Pneumonia Respiratory failure with hypoxia and hypercapnia Acute exacerbation of chronic obstructive airways disease COPD (chronic obstructive pulmonary disease) -follows up with Dr. Lane -no acute exacerbation, not oxygen dependent at baseline Dementia GI bleed Normocytic anemia -acute blood loss on chronic normocytic anemia; previously had macrocytic anemia secondary to vitamin B12 and folate deficiencies -plan for EGD and colonoscopy by Dr. Sapp; per my discussion with him, would like to wait at least 6-8 weeks post-op to allow for appropriate recovery -AC has been on hold; had previously been on Eliquis due to UE superficial DVT -s/p 4 units PRBCs due to acute drop in Hg (09/03 & 09/05); continue to closely monitor H/H. Hg increased to 9.4 today -baseline Hg appears to be around 11 -on PPI CAD (coronary artery disease) -NSTEMI and code blue during hospitalization in 04/2019 -has been following up with cardiology -Echo (04/2019): EF=64%, no RWMA, G1DD, mild MR, trace AR -had coronary angiogram (06/2019) showing normal coronaries -on statin, BB Hypocalcemia -previously noted; corrected Ca-8.5 -PTH wnl Congestive heart failure -no acute exacerbation currently -last Echo: EF=64%, no RWMA, G1DD, mild MR, trace AR DVT (deep venous thrombosis) -previously found to have R basilic vein DVT -had been on AC with Eliquis, now discontinued; not a good candidate for further anticoagulation due to underlying anemia NSTEMI (non-ST elevated myocardial infarction) Macrocytic anemia -has chronic macrocytic anemia; has evidence of vitamin B12 and folate deficiency -replacing vitamin B12, folate -also noted evidence of low iron Lymphedema Non-insulin dependent type 2 diabetes mellitus -A1c-5.5 -Acchucheks, hypoglycemia precautions, ISS Hypertension -VSS; continue to monitor Hypothyroidism -Hx of thyroid cancer s/p thyroidectomy with acquired hypothyroidism -continue levothyroxine Surgical History H/O esophagogastroduodenoscopy (09/20/19) Status post colonoscopy with polypectomy (09/20/19) S/P cholecystectomy History of ankle surgery H/O thyroidectomy Family History Other Breast cancer CAD (coronary artery disease) Diabetes Hypertension Social History Smoking and tobacco/nicotine status: former use of tobacco/nicotine Quit status (tobacco/nicotine): has quit using Former quit date comment: Smoked briefly in her teens. Alcohol intake: never Substance/Drug Use: never Lives independently: Yes Household members: none Housing: Apartment Current occupational status: disabled Do you think of yourself as: Straight/Heterosexual Current gender identity: Female Vitals/I&O/Wt Last Vital Signs Temp 98.2 F 05/20/24 15:49 Pulse 86 05/20/24 17:48 Resp 26 H 05/20/24 16:49 BP 118/49 05/20/24 15:49 Pulse Ox 99 05/20/24 18:19 O2 Del Method BiPAP 05/20/24 18:19 O2 Flow Rate 40 05/20/24 16:49 FiO2 40 05/20/24 18:19 Weight last 48 hrs Weight 90.718 kg Physical Exam Const: COMMON NORMALS: no acute distress EXAM LIMITATIONS: altered mental status ORIENTATION/CONSCIOUSNESS: Yes awake, Yes oriented to person and Yes confused; not oriented to place and not oriented to time Eye: COMMON NORMALS: Equal, round and reactive pupils present Resp: OTHER: Tachypnea, wheezing in all lung mascorro, nasal flaring, intercostal retractions, suprasternal retractions although mild, does have nasal flaring, short of breath after a few words, on 40% BiPAP Cardio: COMMON NORMALS: S1 normal heart sound present and S2 normal heart sound present RATE: tachycardic RHYTHM: regular rhythm HEART SOUNDS: S1 normal heart sound present and S2 normal heart sound present GI: COMMON NORMALS: Normal to inspection, nondistended, normoactive bowel sounds present, Soft to palpation and non-tender : COMMON NORMALS: Yes no CVA tenderness Neuro: COMMON NORMALS: moves all extremities OTHER: Does not follow neurologic testing Sepsis: Is patient septic: Yes Focused sepsis exam performed: Yes Focused sepsis exam: Cap refill greater than 2 seconds, no mottling, 2+ pitting edema Date exam was performed: 05/20/24 Time exam was performed: 18:27 Data 05/20/24 16:15 05/20/24 16:15 A&P Assessment and plan (1) Acute respiratory failure with hypoxia: (2) COPD with acute exacerbation: (3) Influenza A: (4) Secondary bacterial pneumonia: (5) Acute metabolic encephalopathy: (6) Sepsis: (7) Diastolic CHF: Plan Acute metabolic and toxic encephalopathy -With underlying dementia -Secondary to influenza, sepsis, hypoxia - neurochecks, monitor mentation closely Sepsis -Sepsis features met given tachycardia, tachypnea, influenza, DELLA, evidence of respiratory distress, respiratory failure Acute hypoxic respiratory failure -Multifactorial -Secondary to influenza A -Secondary bacterial pneumonia -Diastolic CHF exacerbation -COPD exacerbation Plan ?Monitor respiratory status closely -Currently on BiPAP 40% -I am going to watch patient in ICU as she keeps trying to move her BiPAP mask,= -Start Tamiflu -Isolation precautions -, Send -Cefepime -Lasix 40 IV mg daily -Monitor creatinine monitor urine output -Continue Decadron -Continue DuoNeb, budesonide Acute kidney injury, monitor creatinine COPD History of diastolic CHF PDMP PDMP Reviewed: Not Reviewed Attestations Medical Necessity Statement*: Patient requires hospitalization, inpatient, greater than 2 midnights, for acute hypoxic respiratory, secondary to pneumonia, influenza, diastolic CHF, sepsis, acute encephalopathy Diagnoses Acute respiratory failure with hypoxia J96.01 COPD with acute exacerbation J44.1 Influenza A J10.1 Secondary bacterial pneumonia J15.9 Acute metabolic encephalopathy G93.41 Sepsis A41.9 Diastolic CHF I50.30
--- NOTE | 2024-05-20 18:24 | PHA.VACGOAL ---
Vancomycin Goal - Goal Vancomycin Goal:: 10-15 mg/L Vancomycin Indication:: Other - Therapy Current therapy:: Cefepime Day of therpy:: Day []of [] . Actual body weight (kg): 200 lb - Data Labs: WBC 8.11 10^3/uL (3.29-11.43) 05/20/24 16:15 RBC 4.39 10^6/uL (3.85-5.65) 05/20/24 16:15 Hgb 11.20 g/dL (11.27-16.99) L 05/20/24 16:15 Hct 36.5 % (36-47) 05/20/24 16:15 MCV 83.1 fl (85-98) L 05/20/24 16:15 MCH 25.5 pg (27-33) L 05/20/24 16:15 MCHC 30.7 g/dL (30-55) 05/20/24 16:15 RDW 16.7 % (12.1-15.1) H 05/20/24 16:15 Sodium 135 mmol/L (136-145) L 05/20/24 16:15 Potassium 4.3 mmol/L (3.5-5.1) 05/20/24 16:15 Chloride 93 mmol/L (98-107) L 05/20/24 16:15 Carbon Dioxide 27 mmol/L (22-29) 05/20/24 16:15 Anion Gap 19.3 (5-19) H 05/20/24 16:15 BUN 25 mg/dL (8-23) H 05/20/24 16:15 Creatinine 1.1 mg/dL (0.5-0.9) H 05/20/24 16:15 GFR Calculation Not Reportable 05/20/24 16:15 Last dialysis session:: N/A Treatment plan:: new consult Regimen:: LOADING DOSE OF 1500 MG PER DOSING PROTOCOL. MAINTENANCE DOSE OF 750 MG Q12H Follow up:: WILL CONTINUE TO MONITOR AND FOLLOW UP DAILY
--- NOTE | 2024-05-20 18:46 | PC.NURSE ---
Pt told ER MD that she was okay to be intubated, this nurse called to verify with family as pt is a DNR per the [facility]. This nurse attempted to contact lens assistant to notify, Kelsey Becerra, in regards to intubation of pt. Phone number listed in chart not up to date for Kelsey Cole's number obtained from [facility] records, this nurse attempted to reach Kelsey, phone went directly to voicemail. Pt daughter, Abbi Maravilla, contacted via phone in regards to intubation of pt if needed, Abbi told this nurse to contact Riley Becerra pt son. This nurse attempted to contact pt son, Riley Becerra, at [phone] via phone with no answer and unable to leave voicemail. This nurse called Abbi Taiwo back to inform her that ER was unable to contact Riley Becerra, Abbi told this nurse to contact pt , Benjamin Becerra @[phone]. This nurse called pt , Benjamin Becerra, in regards to pt intubation, pt stated what ever she needs and agreed to intubation if needed, verified with [employer]. After talking with pt , pt told primary nurse that she does not want to be intubated. Primary nurse later talked to pt son, Riley Becerra, Riley told primary nurse that they do not want the pt intubated. Unsure as to whom is POA at this time.
[2024-05-20] MEDS: oseltamivir phosphate 30 mg Capsule PO (19:00)
[2024-05-20] MEDS: cefepime 1,000 mg SDV 1000 MG IVP (19:01)
[2024-05-20] MEDS: pantoprazole 40 mg SDV IVP (19:04)
[2024-05-20] MEDS: enoxaparin 40 mg/0.4 mL Syringe SUBCUT (19:05)
[2024-05-20] MEDS: vancomycin 1,500 MG/300 ML PIGGYBACK 200 MG IV (19:06)
[2024-05-20 19:44] LABS: Troponin 5 2HR 23.71 ng/L (0-10)
[2024-05-20 19:49] LABS: Procalcitonin 0.11 ng/mL (0-0.5); Thyroid Stimulating Hormone 1.93 uIU/mL (0.27-4.20)
[2024-05-20 19:50] LABS: Troponin 5 2HR Delta -1.29 ABS# (0-10)
[2024-05-20] MEDS: budesonide 0.5 mg/2 mL Neb INHALATION (21:15)
[2024-05-21] VITALS (73 sets, daily range): BP systolic 93–152; BP diastolic 35–90; PULSE 62–95; RESP 16–44; TEMP 36.8; O2SAT 88–100
[2024-05-21 04:20] LABS: Bilirubin Urine Negative (Negative); Blood Urine Negative (Negative); Glucose Urine UA Negative (Normal); Ketones Urine Negative (Negative); Leukocyte Esterase Urine Negative (Negative); Nitrate Urine Negative (Negative); Protein Urine Trace (Negative); Specific Gravity, Urine 1.019 (1.005-1.030); Urine Appearance Clear (CLEAR); Urine Color Yellow (Yellow); Urobilinogen Urine 0.2 mg/dL (Negative)
[2024-05-21 04:31] LABS: Eosinophils % 0.3 %; Hematocrit 34.3 % (36-47); Lymphocytes # 0.1 10^3/uL (0.8-4.8); Lymphocytes % 1.7 %; Mean Corpuscular HGB Conc 30.6 g/dL (30-55); Mean Corpuscular Hemoglobin 25.6 pg (27-33); Mean Corpuscular Volume 83.7 fl (85-98); Mean Platelet Volume 9.3 fL (7.4-10.4); Monocytes # 0.2 10^3/uL (0.2-0.9); Monocytes % 3.2 %; Neutrophils # 6.74 10^3/uL (1.8-7.7); Neutrophils % 94.5 %; Nucleated Red Blood Cells % 0 %; Platelet Count 177 10^3/cmm (157-399); Red Cell Distribution Width 16.7 % (12.1-15.1); White Blood Count 7.13 10^3/uL (3.29-11.43)
[2024-05-21 04:51] LABS: Alanine Aminotransferase 6 U/L (0-33); Albumin Level 3.7 g/dL (3.5-5.2); Alkaline Phosphatase 91 U/L (35-105); Anion Gap 16.9 (5-19); Aspartate Amino Transferase 9 U/L (0-32); Blood Urea Nitrogen 26 mg/dL (8-23); Calcium 7.3 mg/dL (8.5-10.5); Carbon Dioxide 26 mmol/L (22-29); Chloride 96 mmol/L (98-107); Creatinine Clr Calc Pharmacy 39.1633; Globulin 3.2 g/dL (1.3-4.6); Glucose 175 mg/dL (65-115); Magnesium 1.8 mg/dL (1.7-2.3); Osmolality Calculated 289 mOsm/kg (285-295); Phosphorus 4.3 mg/dL (2.5-4.5); Potassium 3.9 mmol/L (3.5-5.1); Sodium 135 mmol/L (136-145); Total Bilirubin 0.3 mg/dL (0.15-1.2); Total Protein 6.9 g/dL (6.6-8.7)
[2024-05-21 04:55] LABS: Add Urine Culture? No; Add Urine Microscopic? YES; Bacteria Urine TRACE /hpf; RBC Urine 0-4 /hpf (0-2); Squamous Epithelial Cell Urine 0-4 /hpf (0-5); UA Manual Slide Review YES; WBC Urine 0-4 /hpf (0-5)
[2024-05-21 05:11] LABS: INR 1.36 (0.8-1.2)
[2024-05-21 05:12] LABS: Partial Thromboplastin Time 38.6 SECONDS (23.9-36.7)
[2024-05-21] MEDS: cefepime 1,000 mg SDV 1000 MG IVP ×2 (06:53→20:19)
[2024-05-21] MEDS: VANCOMYCIN ADD-Vantage 750 MG in 0.9% NaCl ADD-Vantage 250 ML 250 MG IV ×2 (06:54→20:20)
[2024-05-21] MEDS: aspirin 81 mg EC Tablet PO (08:35)
[2024-05-21] MEDS: sertraline 100 mg Tablet 200 MG PO (08:35)
[2024-05-21] MEDS: spironolactone 25 mg Tablet 12.5 MG PO (08:35)
[2024-05-21] MEDS: levothyroxine 200 mcg Tablet PO (08:37)
[2024-05-21] MEDS: BuSPIRONE 10 mg Tablet PO ×2 (08:37→20:20)
[2024-05-21] MEDS: oseltamivir phosphate 30 mg Capsule PO ×2 (08:37→20:20)
[2024-05-21] MEDS: FUROsemide 10 mg/mL SDV 4mL 40 MG IVP (08:44)
--- NOTE | 2024-05-21 09:37 | PC.OT ---
Evaluation attempted. Patient is not medically stable enough for evaluation due to dyspnea and hypoxia. Will attempt again later.
[2024-05-21] MEDS: lidocaine 1% 5 ML in potassium chloride premix 100 ML 52.5 ML IV (10:18)
[2024-05-21] MEDS: ipratropium-albuterol 3 mL Neb INHALATION ×3 (12:09→21:50)
--- NOTE | 2024-05-21 13:11 | PC.PT ---
PT eval attempted, but patient was not stable and not feeling well. Nursing reported that patient used sit to stand device in shelter for transfers.
--- OUTSIDE RECORDS SUMMARY | 2024-05-21 15:26 | XMS_ITS | Continuity of Care Document ---
Author Organization [facility] Address [address] [place] [address] Care Team Providers Care Pecan Gatherer Name Role Phone Samuel LEE, Dr. Hoang Attending Physician Medications Medication Frequency Instructions Diagnosis Start Date End Date Last Administered Aldactone (spironolactone) 25 mg tablet Once A Day 03/31 tab, oral, Once A Day 023 04/21/2024 07:54 AM Anoro Ellipta (umeclidinium-vi lanterol) 62.5-25 mcg/actuation blister with device Once A Day 1 inh, inhalation, Once A Day, clinical indication: COPD Special Instructions: Rinse mouth after use J44.9 : Chronic obstructive pulmonary disease, unspecified 023 04/21/2024 07:54 AM aspirin 81 mg tablet,chewable Once A Day 1 tab, oral, Once A Day, clinical indication: anticoagulant 020 04/21/2024 07:54 AM atorvastatin 40 mg tablet At Bedtime 1 tab, oral, At Bedtime, clinical indication: hyperlipidemia 023 04/20/2024 06:09 PM buspirone 10 mg tablet Twice A Day 1, oral, Twice A Day 024 04/21/2024 07:54 AM Calmoseptine (menthol-zinc oxide) 0.44-20.6 % ointment Every Shift 1 application, topical, Every Shift, cleans area and apply 1 application to vi area for preventative 024 04/21/2024 07:54 AM clonazepam 0.5 mg tablet Once A Day 1 tab, oral, Once A Day F41.1 : Generalized anxiety disorder 023 04/21/2024 07:54 AM clonazepam 0.5 mg tablet At Bedtime 2 tab=1 mg, oral, At Bedtime 024 04/20/2024 06:09 PM Dulcolax (bisacodyl) (bisacodyl) 5 mg tablet,delayed release (DR/EC) Once A Day - PRN 2 tabs/10mg, oral, Once A Day - PRN, clinical indication: constipation 023 10/30/2023 06:49 AM Dulcolax (bisacodyl) (bisacodyl) 10 mg suppository Once A Day - PRN 1 suppository, rectal, Once A Day - PRN, clinical indication: constipation 023 furosemide 40 mg tablet Once A Day 1 tab, oral, Once A Day I50.32 : Chronic diastolic (congestive) heart failure 024 04/21/2024 07:54 AM ipratropium-albu terol 0.5 mg-3 mg(2.5 mg base)/3 mL solution for nebulization Every 6 Hours - PRN 1, inhalation, Every 6 Hours - PRN, congestion/cough/ dyspnea J96.01 : Acute respiratory failure with hypoxia 023 03/19/2024 12:23 AM levothyroxine 200 mcg capsule Once A Day 1 tab, oral, Once A Day 021 04/21/2024 07:54 AM metoprolol tartrate 25 mg tablet Twice A Day 1 tab, oral, Twice A Day, clinical indication: HTN Hold if heart rate <50 or blood pressure <100/60 024 04/21/2024 07:54 AM nitroglycerin 0.4 mg tablet, sublingual Three Times A Day - PRN 1-3, sublingual, Three Times A Day - PRN, Administer 1 tablet sublingually every 5 min for chest pain. NO MORE than 3 tablets. Monitor BP and HOLD if SBP less than or equal to 90. sertraline 200 mg tablet Once A Day 1 tab, oral, Once A Day, clinical indication: depression increased to 200mg [address] Baker 021 04/21/2024 07:54 AM Tylenol (acetaminophen) 325 mg tablet Every 6 Hours - PRN 1 -2 tabs = 325 -650 mG, oral, Every 6 Hours - PRN, as needed for pain or fever 02/26/2024 02:56 PM Ventolin HFA (albuterol sulfate) 90 mcg/actuation HFA aerosol inhaler Every 6 Hours - PRN 2 puffs, inhalation, Every 6 Hours - PRN, as needed for dyspnea 020 04/09/2024 12:46 AM Vitamin D3 (cholecalciferol (vitamin d3)) 10 mcg (400 unit) tablet Once A Day 1, oral, Once A Day 023 04/21/2024 07:54 AM lorazepam 0.5 mg tablet Twice A Day - PRN 1, oral, Twice A Day - PRN, f/u in 6 months F41.1 : Generalized anxiety disorder 024 202303/25/2024 07:16 AM Problems Code Type Problem ICD Code Effective Date Status ICD-10 Atherosclerotic hear t disease of knik coronary artery without angina pectoris I25.10 11/03/2019 Active ICD-10 Chronic obstructive pulmonary disease, unspecified J44.9 08/19/2023 Active ICD-10 Acute respiratory failure with hypercapnia J96. 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) use of aspirin Z79.82 0 11/03/2019 Active ICD-10 Hypertensive heart a nd chronic kidney disease with heart failure and stage 1 through stage 4 chronic kidney disease, or unspecified chronic kidney disease I13.0 01/27/2020 Activ e ICD-10 Chronic diastolic (congestive) heart failure I5 0.32 04/20/2020 Active ICD-10 Type 2 diabetes elijah itus with diabetic chronic kidney disease E11.22 08/05/2022 Active ICD-10 Chronic kidney disease, stage 3a N18.31 Active ICD-10 Vascular dementia, s evere, with mood disturbance F01.C3 04/23/2022 Active ICD-10 Major depressive dis order, recurrent, moderate F33.1 07/30/2022 Active ICD-10 Vascular dementia, severe, with anxiety F01.C4 04/23/2022 Active ICD-10 Generalized anxiety disorder F41.1 022 Active ICD-10 Other specified diso rders of bone density and structure, unspecified site M85.80 03/04/2023 Active ICD-10 Hyperlipidemia, unspecified E78.5 11/03/19 20 Active ICD-10 Hypothyroidism, unspecified E03.9 11/03/19 20 Active ICD-10 Acquired absence of other organs Z90.89 08/2019 Active ICD-10 Insomnia, unspecified G47.00 11/03/2019 Act ruthann ICD-10 Morbid (severe) obes ity due to excess calories E66.01 02/24/2024 Active ICD-10 Body mass index [BMI] 39.0-39.9, adult Z68.39 02/20/2024 Active ICD-10 Gastro-esophageal re flux disease without esophagitis K21.9 11/03/2019 Active ICD-10 Unspecified urinary incontinence R32 08/2019 Active ICD-10 Do not resuscitate Z66 08/02/2021 Active Current Allergies and Intolerances Category Substance Type Reaction Severity Begin Date Status Drug allergy piperacillin-tazobactam Allergy 08/2019 Active Vital Signs Height: 60.0 in Date / Time Temperature Pulse (per minute) Respirations (per minute) Systolic BP (mmHg) Diastolic BP (mmHg) O2 Saturation (%) Weight BMI 2024 12:57 PM 94.0 2024 07:54 AM 78 118 69 2024 08:01 PM 64 107 62 2024 06:08 PM 93.0 2024 05:32 PM 205.0 lbs 40.0 3 2024 03:06 PM 97.6 F 17 2024 01:12 PM 95.0 2024 08:18 AM 69 117 64 2024 06:38 PM 61 102 62 2024 06:37 PM 93.0 2024 08:12 AM 94.0 2024 07:32 AM 68 115 70 2024 06:26 PM 61 104 63 2024 06:25 PM 93.0 2024 09:33 AM 92.0 2024 09:02 AM 59 118 43 2024 05:44 PM 63 104 58 94.0 2024 01:06 PM 94.0 2024 07:40 AM 65 116 64 2024 06:09 PM 64 104 59 2024 06:08 PM 93.0 2024 09:38 AM 97.2 F 17 2024 08:47 AM 203.6 lbs 39.7 6 2024 08:52 AM 96.4 F 17 203.6 lbs 39.7 6 2024 03:00 PM 200.6 lbs 39.1 7 2024 01:49 PM 204.8 lbs 39.9 9 2024 03:59 PM 200.6 lbs 39.1 7 2024 10:56 AM 203.0 lbs 39.6 4 2024 09:01 AM 97.5 F 17 2023 04:14 PM 97.6 F 19 2023 09:38 AM 97.7 F 16 2023 02:36 PM 198.2 lbs 38.7 2023 03:46 PM 200.0 lbs 39.0 6 2023 04:38 PM 199.2 lbs 38.9 2023 07:49 PM 206.2 lbs 40.2 7 2023 11:32 AM 97.6 F 20 2023 12:36 PM 97.4 F 15 2023 05:34 PM 211.4 lbs 41.2 8 2023 06:47 PM 98.6 F 18 2023 08:28 AM 97.6 F 18 2023 05:54 AM 200.0 lbs 39.0 6 2023 01:01 AM 206.0 lbs 40.2 3 2023 11:29 AM 206.0 lbs 40.2 3 2023 11:34 AM 204.8 lbs 39.9 9 2023 05:22 PM 205.0 lbs 40.0 3 2023 08:39 AM 212.8 lbs 41.5 6 Advance Directives Directive Note Do Not Resuscitate (DNR) Insurance Providers Payer Policy type Group Name Group number Policy ID Address Ph one Medicare Part A Medicare Part A [id number] Phone: Fax: Medicare Adv. [employer] [facility] - BCBS Like Medicare Part A [id number] [address] [place] [address] Phone: Fax: [facility] - [facility] Adv Part B - BCBS Like Medicare Part B [id number] 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 Date Status Dose Series Complete COVID-19 Vaccine 03/26/2020 Refused COVID-19 Vaccine 12/24/2023 Refused COVID-19 Vaccine 10/14/2022 Refused COVID-19 Vaccine 10/02/2022 Refused COVID-19 Vaccine 01/17/2022 Refused Influenza Vaccine Afluria 12/31/2021 Completed Influenza Vaccine 12/24/2023 Refused Influenza Vaccine 12/11/2022 Refused Influenza Vaccine 01/03/2021 Refused Pneumococcal Vaccine 12/24/2023 Refused Pneumococcal Vaccine 12/11/2022 Refused Pneumococcal Vaccine 12/20/2021 Refused Pneumococcal Vaccine 07/20/2020 Refused RSV Vaccine 12/24/2023 Refused RSV Vaccine 01/20/2023 Refused Procedures Not available for this record Results Not available for this record Goals Goal Date ADL approaches will meet the resident?s needs to enhance ability, maintain abilities, or provide quality. 05/18/2024 Advanced directives will be honored as outlined by patient/family on daily basis thru 120days from update/last review 05/18/2024 Will have a BM at least ever y 3 days for 120 days since update/last review AND/OR will not experience any complications r/t to colostomy for 120 days from update/ last review AND/OR Will not experience any GI complications for 120 days since update/last review AND/OR Will remain clean, dry between incontinent episodes thru 120days from update/last review 05/18/2024 Adverse drug reactions will be identified with interventions initiated for 120 days from update/last review 05/18/2024 Will adjust to change in rel ationships and accept support from staff for 120days from update/last review AND/OR Will be at ease interacting with others, expressing preferences daily for 120days from update/last review 05/18/2024 Will participate in 2-3 acti vities per week of my preference through next assessment 05/18/2024 Jaylin will maintain adequate o xygenation as demonstrated through oxygen saturation with or without oxygen through next review. 05/18/2024 Michelle will maintain nutritional statu s through next review 05/18/2024 Resident will optimize menta l health as evidenced by decreased behaviors, improved PHQ9, and/or verbalization of satisfactory outcome. 05/18/2024 Will be able to express simple wants/nee ds to staff daily 05/18/2024 Resident's skin will remain intact. 04/30 Encounters Admission Date Discharge Date Description MRN Visit Count 11/03/2019 14:09 LTPAC Admission 4101 01
--- OUTSIDE RECORDS SUMMARY | 2024-05-21 15:27 | XMS_ITS | Clinical Summary ---
Author Organization [facility] [place] Address [address] [place] [address] Phone Care Team Providers Care Transcribing Machine Operator Name Role Phone Viktor Baker MD Primary Care Provider [phone] Allergies Active Allergy Reactions Criticality Noted Date Comments Sulfa (Sulfonamide Antibiotics) Rash Low 10/29 Medications omeprazole (PRILOSEC) 20 mg Oral CpDR Take 20 mg by mouth 2 times daily. Active fenofibrate Nanocrystallized (TRICOR) 48 mg Oral Tab Take 48 mg by mouth daily. Active aspirin (CLAUDINE) 81 mg Oral Tab Take 81 mg by mouth daily. Active acetaminophen (TYLENOL) 650 mg Oral Tab Take 650 mg by mouth every 4 hours as needed. Active sitaGLIPtin (JANUVIA) 100 mg Oral Tab Take 100 mg by mouth daily with breakfast. Active furosemide (LASIX) 40 mg tablet Take 40 mg by mouth daily. Active ANORO ELLIPTA 62.5-25 mcg/actuation Disk with Device Take 1 Puff by inhalation daily . 07/30/19 16 Active polyethylene glycol 3350 (MIRALAX) 17 gram/dose Powder Take 1 SCOOP by mouth 2 times daily as needed . 07/30/19 16 Active oxygen home delivery Administer 2-3 L/min in each nostril Continuous as needed Primarily with activities . 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 Active cholecalciferol 1,250 mcg (50,000 unit) CapsuleIndications:H ypovitaminosis D Take 1 Capsule (50,000 Units) by mouth every 7 days. 13 Capsule 04/06/19 20 Active Active Problems Problem Noted Date Diagnosed Date Pseudophakia of left eye 12/02/2018 Pseudophakia of right eye 11/18/2018 History of thyroid cancer 06/05/2017 Post-surgical hypothyroidism 03/04/2016 Type 2 diabetes mellitus wit h stage 3 chronic kidney disease, without long-term current use of insulin 02/12/2016 History of thromboembolism 02/12/2016 Supplemental oxygen dependent 02/12/2016 Chronic renal insufficiency, stage III (moderate ) 02/12/2016 Morbid obesity with BMI of 45.0-49.9, adult 07/2015 Chronic obstructive pulmonar y disease with acute exacerbation 08/02/2015 GEOVANNI on CPAP 08/02/2015 Peripheral edema 08/02/2015 Dysphagia 07/12/2014 Dysphagia, pharyngoesophageal phase 09/13/2009 Dysphagia 10/31/2008 Hypocalcemia Post-surgical hypoparathyroidism Resolved Problems Problem Noted Date Diagnosed Date Resolved Date 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 Cancer Staging:Pathologic stage from 2016: T3(3), N0 - Signed by Irvin Yu MD on 2016 Thyroid nodule - Right 4.2 cm 08/02/2015 04/29/2016 Immunizations Immunization Administration Dates Next Due (PNEUMOVAX 23)(50 YRS UP) PN EUMOCOCCAL POLYSACCHARIDE (PPV23) 0.5 ML, IM 02/26/2004 Family History Medical History Relation Name Comments Stroke Brother Heart Disease Father Stroke Maternal Aunt Cancer Maternal Uncle Diabetes Mother Stroke Mother Colon Cancer Neg Hx Relation Name Status Comments Brother Father Maternal Aunt Maternal Uncle Mother Social History Tobacco Use Types Packs/Day Years Used Date Smoking Tobacco: Never Smokeless Tobacco: Never Alcohol Use Standard Drinks/Week Comments No 0 (1 standard drink = 0.6 oz pur e alcohol) Comments No Sex and Gender Information Value Date Recorded Sex Assigned at Not on file Legal Sex Female 3:13 AM [employer]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 Gender Identity Not on file Sexual Orientation Not on file Occupation Industry Job Start Date Job End Date Not on file Not on file Not on file Not on file Last Filed Vital Signs Vital Sign Reading Time Taken Comments Blood Pressure 125/70 04/01/2019 9:06 AM 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 Pulse 72 04/01/2019 9:06 AM [employer]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 Temperature 36.3 ??C (97.3 ??F) 12/02/2018 8:27 AM CD T Respiratory Rate 18 12/02/2018 6:57 AM CDT Oxygen Saturation 100% 12/02/2018 8:27 AM CDT Inhaled Oxygen Concentration - - Weight 98.4 kg (217 lb) 04/01/2019 9:06 AM 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 Height 157.5 cm (5' 2 ) 04/01/2019 9:06 AM [employer]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 Body Mass Index 39.69 04/01/2019 9:06 AM [employer]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 Plan of Treatment Health Maintenance Due Date Last Done Comments DIABETES ANNUAL FOOT EXAM 02/13/1962 DTAP/TDAP/TD VACCINES (1 - Tdap) 02/13/1963 ZOSTER VACCINE (1 of 2) 02/13/1994 PNEUMOCOCCAL VACCINE 65+ YEA RS (2 of 2 - PCV) 02/25/2005 02/26/2004 OSTEOPOROSIS SCREENING 02/13/2009 DIABETES HBA1C Q 6 MONTHS 05/19/20182017, 01/17/2016, 10/31/2015, Additional history exists DIABETES MICROALBUMIN ANNUAL SCREEN 11/16/2018 11/16/2017, 07/29/2014 LDL CHOLESTEROL ANNUAL 11/16/2018 8, 11/20/2016, 07/28/2014, Additional history exists RSV VACCINE (60+ or ) (1 - 1-dose 75+ series) 02/13/2019 DIABETES ANNUAL RETINAL EXAM 11/27/2019, 11/26/2018, 11/26/2018, Additional history exists INFLUENZA VACCINE (#1) 2023 COLORECTAL SCREENING Discontinued 01/28/2011, 03/06/20 Colorectal Cancer Screening Discontinued FIT-DNA Q 3 years Discontinued FIT/FOBT Q 1 year Discontinued Flex Sig/CT Colonography Q 5 years Discontinued Medical Devices Implanted Type Area Drop Wire Stringer Device Identifier Shelf Expiration Date Model / Serial / Lot Lens Io Tecnis 1pc 25.5 [id number] - [id number] Implanted:Qty: 1 on 11/18/2018 by Victorino John MD at [facility] Right: Eye [employer] 06/28/2022 [id number] / [id number] / Lens Io Tecnis 1pc 24.5 [id number] - [id number] Implanted:Qty: 1 on 12/02/2018 by Victorino John MD at [facility] Left: Eye [employer] 09/09/2022 [id number] / [id number] / Procedures Procedure Name Priority Date/Time Associated Diagnosis Comments MICROALBUMIN/CREATIN INE RATIO, RANDOM UR Routine 11/16/2017 LIPID PANEL Routine 11/16/2017 HEMOGLOBIN A1C Stat 01/17/2016 1:08 PM CDT from Last 3 Months or Most Recently Relevant to Health Maintenance Results * MICROALBUMIN/CREATININE RATIO, RANDOM UR (11/16/2017) ABSTRACTED MICROALBUMIN,URI NE EXTERNAL LAB Comment:<1.2 MICROALBUMIN, URINE mg/dL EXTERNAL LAB CREATININE, URINE EXTERNAL LAB MICROALBUMIN/CRE AT RATIO, UR EXTERNAL LAB MICROALBUMIN, URINE mg/dL EXTERNAL LAB CREATININE, URINE 29.0 - 226.0 mg/dL EXTERNAL LAB MICROALBUMIN/CRE AT RATIO, UR <=25.0 mg/g EXTERNAL LAB Urine URINE SPECIMEN OBTAINED BY CLEAN CATCH PROCEDURE / Unknown 11/16/2017 us Abstract Sp Provider URINE ORDERABLES Final Res ult EXTERNAL LAB * LIPID PANEL (11/16/2017) ABSTRACTED CHOLESTEROL 153 EXTERNAL LAB ABSTRACTED TRIGLYCERIDE 85 EXTERNAL LAB ABSTRACTED HDL 45 EXTERNAL LAB ABSTRACTED LDL CALCULATED 91 EXTERNAL LAB CHOLESTEROL <=200 mg/dL EXTERNAL LAB TRIGLYCERIDE <=150 mg/dL EXTERNAL LAB HDL 40 - 59 mg/dL EXTERNAL LAB LDL CALCULATED <=100 mg/dL EXTERNAL LAB Blood 11/16/2017 us Abstract Sp Provider CHEMISTRY ORDERABLES Final Result EXTERNAL LAB * HEMOGLOBIN A1C (01/17/2016 1:08 PM CDT) HEMOGLOBIN A1C 5.9 4.0 - 6.0 % 01/18/2016 11:40 AM CDT [facility] EST. AVG GLUCOSE, A1C 123 mg/dL 01/18/2016 11:40 AM CDT [facility] Blood Venipuncture - L ab Collect / Unknown 01/17/2016 1:08 PM CDT 01/17/2016 1:22 PM CDT Narrative [facility] - 01/18/2016 11:40 AM CDT Test performed on [employer] instrumentation using HPLC methodology us A Gerardo Holly MD CHEMISTRY ORDERABLES Final Result [facility] CLIA# [id number] [place] [address] from Last 3 Months or Most Recently Relevant to Health Maintenance Insurance MEDICAID [facility] Advance Directives For more information, please contact: [phone] * Full Code (Latest Code Status on File) Date Activated Date Inactivated Comments 12/02/2018 6:57 AM 12/02/2018 10:40 AM * Full Code Date Activated Date Inactivated Comments 11/18/2018 9:13 AM 11/18/2018 12:56 PM * Full Code Date Activated Date Inactivated Comments 07/05/2018 12:50 PM 07/05/2018 5:05 PM * Full Code Date Activated Date Inactivated Comments 02/12/2016 12:14 PM 02/15/2016 7:30 PM * Full Code Date Activated Date Inactivated Comments 02/12/2016 6:46 AM 02/12/2016 12:14 PM Care Teams Transcribing Machine Operator Relationship Specialty Start Date End Date Viktor Baker MD [address] [id number] PCP - General Family Practice 01/27/11
--- OUTSIDE RECORDS SUMMARY | 2024-05-21 15:27 | XMS_ITS | Continuity of Care Document ---
Author Organization [facility] ([facility]) Address [address] [place] [address] Insurance Providers Payer Plan Claims Address Claims Phone Policy Number Group Number Relation Employer Guarantor Name Guarantor Guarantor Address Guarantor Phone [employer] [address], [place] [address] tel:[phone] Self Michelle Becerra [address] [place] [phone] MEDIC AID [address], [place] [address] [id number] Self Michelle Becerra [address] [place] [id number] Problems Condition ICD9 code ICD10 code SNOMED code Start Date End Date S tatus Chronic obstructive pulmonary disease, unspecified J44.9 08/19/2023 Active Acute respiratory failure with hypercapnia J96.02 08/05/2022 Active Acute respiratory failure with hypoxia J96.01 08/05/2022 Active longterm (current) use of inhaled steroids Z79.51 04/14/2022 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 11/03/2019 Active Hypertensive heart and chronic kidney disease with heart failure and stage 1 through stage 4 chronic kidney disease, or unspecified chronic kidney disease I13.0 01/27/2020 Active Chronic diastolic (congestive) heart failure I50.32 04/20/2020 Active Chronic kidney disease, stage 3a N18.31 09/10/2022 Active Vascular dementia, severe, with mood disturbance F01.C3 04/23/2022 Active Major depressive disorder, recurrent, moderate F33.1 07/30/2022 Active Vascular dementia, severe, with anxiety F01.C4 04/23/2022 Acti ve Generalized anxiety disorder F41.1 06/20/2021 Active Other specified disorders of bone density and structure, unspecified site M85.80 03/04/2023 Active Hyperlipidemia, unspecified E78.5 11/03/2019 Active Hypothyroidism, unspecified E03.9 11/03/2019 Active Acquired absence of other organs Z90.89 11/03/2019 Active Insomnia, unspecified G47.00 11/03/2019 Active Body mass index (BMI) 39.0-39.9, adult Z68.39 02/20/2024 Active Gastro-esophageal reflux disease without esophagitis K21.9 11/03/2019 Active Unspecified urinary incontinence R32 11/03/2019 Active Do not resuscitate Z66 08/02/2021 Ac 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 11/03/2019 Active Type 2 diabetes mellitus with diabetic chronic kidney disease E11.22 08/05/2022 Active Morbid (severe) obesity due to excess calories E66.01 02/24/2024 Ac tive Body mass index (BMI) 40.0-44.9, adult Z68.41 04/20/2024 Active Results Test Value / Unit Interpretation Reference Ran ge COVID-19 Test Viral Antigen null flavor [null] See note NEG COVID-19 Test Viral Antigen COVID-19 Test Viral Antigen null flavor [null] See note NEG COVID-19 Test Viral Antigen COVID-19 Test Viral Antigen null flavor [null] See note NEG COVID-19 Test Viral Antigen COVID-19 Test Viral Antigen null flavor [null] See note NEG COVID-19 Test Viral Antigen COVID-19 Test Viral Antigen null flavor [null] See note NEG COVID-19 Test Viral Antigen COVID-19 Test Viral Antigen null flavor [null] See note NEG COVID-19 Test Viral Antigen Allergies, adverse reactions, alerts Substance Reaction Date Status Type piperacillin-tazobactam 11/03/2019 N on Drug Immunizations Vaccine Route Date Status COVID-19 Vaccine Unassigned Route of Administration Refused COVID-19 Vaccine Unassigned Route of Administration Refused COVID-19 Vaccine Unassigned Route of Administration Refused COVID-19 Vaccine Unassigned Route of Administration Refused COVID-19 Vaccine Unassigned Route of Administration Refused Influenza Vaccine Unassigned Route of Administration 1 Completed Influenza Vaccine Unassigned Route of Administration 0 12/11/2022 Refused Influenza Vaccine Unassigned Route of Administration 1 Refused Pneumococcal Vaccine Unassigned Route of Administratio n 12/20/2021 Refused Pneumococcal Vaccine Unassigned Route of Administratio n 07/20/2020 Refused RSV Vaccine Unassigned Route of Administration 2022 Refused Medications Medication Instructions Route Dosage Frequency Start Date Stop Date Indications Status Aldactone (spironolacton e) 25 mg tablet (Aldactone (spironolacton e)) 1/2 tab, oral, Once A Day oral 1.0 1.0 d 2022 Active Anoro Ellipta (umeclidinium- vilanterol) 62.5-25 mcg/actuation blister with device (Anoro Ellipta (umeclidinium- vilanterol)) 1 inh, inhalation, Once A Day, clinical indication: COPDSpecial Instructions: Rinse mouth after use inhalati on 1.0 1.0 d 2022 Chronic obstructive pulmonary disease, unspecified Active aspirin 81 mg tablet,chewabl e (aspirin) 1 tab, oral, Once A Day, clinical indication: anticoagulant oral 1.0 1.0 d 2019 Active atorvastatin 40 mg tablet (atorvastatin) 1 tab, oral, At Bedtime, clinical indication: hyperlipidemia oral 1.0 2022 Active buspirone 10 mg tablet (buspirone) 1, oral, Twice A Day oral 1.0 12.0 h 2023 Active Calmoseptine (menthol-zinc oxide) 0.44-20.6 % ointment (Calmoseptine (menthol-zinc oxide)) 1 application, topical, Every Shift, cleans area and apply 1 application to vi area for preventative topical 1.0 8.0 h 2023 Active clonazepam 0.5 mg tablet (clonazepam) 1 tab, oral, Once A Day oral 1.0 1.0 d 2022 Generalized anxiety disorder Active clonazepam 0.5 mg tablet (clonazepam) 2 tab=1 mg, oral, At Bedtime oral 1.0 2023 Active Dulcolax (bisacodyl) (bisacodyl) 5 mg tablet,delayed release (DR/EC) (Dulcolax (bisacodyl) (bisacodyl)) 2 tabs/10mg, oral, Once A Day - PRN, clinical indication: constipation oral 1.0 1.0 d 2022 Active Dulcolax (bisacodyl) (bisacodyl) 10 mg suppository (Dulcolax (bisacodyl) (bisacodyl)) 1 suppository, rectal, Once A Day - PRN, clinical indication: constipation rectal 1.0 1.0 d 2022 Active furosemide 40 mg tablet (furosemide) 1 tab, oral, Once A Day oral 1.0 1.0 d 2023 Chronic diastolic (congestive) heart failure Active ipratropium-al buterol 0.5 mg-3 mg(2.5 mg base)/3 mL solution for nebulization (ipratropium-a lbuterol) 1, inhalation, Every 6 Hours - PRN, congestion/cough /dyspnea inhalati on 1.0 6.0 h 2022 Acute respiratory failure with hypoxia Active levothyroxine 200 mcg capsule (levothyroxine ) 1 tab, oral, Once A Day oral 1.0 1.0 d 2020 Active lorazepam 0.5 mg tablet (lorazepam) 1, oral, Twice A Day - PRN, f/u in 6 months oral 1.0 12.0 h 03/25 Generalized anxiety disorder Active metoprolol tartrate 25 mg tablet (metoprolol tartrate) 1 tab, oral, Twice A Day, clinical indication: HTNHold if heart rate <50 or blood pressure <100/60 oral 1.0 12.0 h 05/16 Active nitroglycerin 0.4 mg tablet, sublingual (nitroglycerin ) 1-3, sublingual, Three Times A Day - PRN, Administer 1 tablet sublingually every 5 min for chest pain. NO MORE than 3 tablets. Monitor BP and HOLD if SBP less than or equal to 90. sublingu al 1.0 8.0 h 2019 Active sertraline 200 mg tablet (sertraline) 1 tab, oral, Once A Day, clinical indication: depressionincrea sed to 200mg [address] Baker oral 1.0 1.0 d 2020 Active Tylenol (acetaminophen ) 325 mg tablet (Tylenol (acetaminophen )) 1 -2 tabs = 325 -650 mG, oral, Every 6 Hours - PRN, as needed for pain or fever oral 1.0 6.0 h 2019 Active Ventolin HFA (albuterol sulfate) 90 mcg/actuation HFA aerosol inhaler (Ventolin HFA (albuterol sulfate)) 2 puffs, inhalation, Every 6 Hours - PRN, as needed for dyspnea inhalati on 1.0 6.0 h 2019 Active Vitamin D3 (cholecalcifer ol (vitamin d3)) 10 mcg (400 unit) tablet (Vitamin D3 (cholecalcifer ol (vitamin d3))) 1, oral, Once A Day oral 1.0 1.0 d 2022 Active doxycycline hyclate 100 mg tablet (doxycycline hyclate) 1 tab, oral, Twice A Day, Give 1 tab po BID x 10 days for upper/lower respiratory infection oral 1.0 12.0 h 02/24 Active furosemide 40 mg tablet (furosemide) 1 tab, oral, Once A Day oral 1.0 1.0 d 02/18 Chronic diastolic (congestive) heart failure Active ipratropium bromide 0.02 % solution (ipratropium bromide) 1 inh, inhalation, Twice A Day inhalati on 1.0 12.0 h 02/23 Active ipratropium-al buterol 0.5 mg-3 mg(2.5 mg base)/3 mL solution for nebulization (ipratropium-a lbuterol) 1, inhalation, Four Times A Day, 1 vial QID x7 days then back to PRN inhalati on 1.0 6.0 h 02/25 Active Lasix (furosemide) 80 mg tablet (Lasix (furosemide)) 1, oral, Once A Day, 80mg daily x5 days then decrease back to 40mg daily due to possible CHF exacerbation oral 1.0 1.0 d 02/22 Active prednisone 20 mg tablet (prednisone) 2, oral, Once A Day, Take 2 tabs PO daily x5 days for respiratory oral 1.0 1.0 d 02/18 Active prednisone 20 mg tablet (prednisone) 2, oral, Once A Day, Take 2 tabs PO daily x5 days for respiratory oral 1.0 1.0 d 02/22 Active prednisone 10 mg tablet (prednisone) 3 tabs, oral, Once A Day, Give Prednisone 30mg po daily x 3 days, then 20mg po daily x 3 days, then 10mg pod daily x 3 days then DC. oral 1.0 1.0 d 02/25 Active prednisone 10 mg tablet (prednisone) 2 tabs, oral, Once A Day, Give Prednisone 30mg po daily x 3 days, then 20mg po daily x 3 days, then 10mg pod daily x 3 days then DC. oral 1.0 1.0 d 02/28 Active prednisone 10 mg tablet (prednisone) 1 tab, oral, Once A Day, Give Prednisone 30mg po daily x 3 days, then 20mg po daily x 3 days, then 10mg pod daily x 3 days then DC. oral 1.0 1.0 d 03/03 Active levofloxacin 750 mg tablet (levofloxacin) 1, oral, Once A Day oral 1.0 1.0 d 03/22 Active metoprolol tartrate 25 mg tablet (metoprolol tartrate) 1 tab, oral, Twice A Day oral 1.0 12.0 h 2024 Active prednisone 20 mg tablet (prednisone) 2 tabs, oral, Once A Day, Administer 40mg po daily x 5 days for COPD exacerbation oral 1.0 1.0 d 05/23 Active Vital Signs Date Vital Result Comment 03/08/2024 07:36 PM Heart Rate 78 /min Blood Pressure Systolic 132 mm[Hg] Blood Pressure Diastolic 66 mm[Hg] 03/08/2024 07:35 PM Oxygen Saturation 94 % 03/08/2024 09:57 AM Oxygen Saturation 95 % 03/08/2024 07:39 AM Heart Rate 64 /min Blood Pressure Systolic 128 mm[Hg] Blood Pressure Diastolic 60 mm[Hg] 03/07/2024 06:12 PM Oxygen Saturation 94 % Heart Rate 62 /min Blood Pressure Systolic 122 mm[Hg] Blood Pressure Diastolic 61 mm[Hg] 03/07/2024 12:51 PM Oxygen Saturation 94 % 03/07/2024 07:00 AM Heart Rate 66 /min Blood Pressure Systolic 124 mm[Hg] Blood Pressure Diastolic 53 mm[Hg] 03/06/2024 07:37 PM Oxygen Saturation 92 % 03/06/2024 07:20 PM Heart Rate 65 /min Blood Pressure Systolic 94 mm[Hg] Blood Pressure Diastolic 52 mm[Hg] 03/06/2024 07:30 AM Oxygen Saturation 94 % 03/06/2024 06:54 AM Heart Rate 70 /min Blood Pressure Systolic 114 mm[Hg] Blood Pressure Diastolic 65 mm[Hg] 03/05/2024 07:50 PM Oxygen Saturation 93 % 03/05/2024 07:16 PM Heart Rate 67 /min Blood Pressure Systolic 102 mm[Hg] Blood Pressure Diastolic 67 mm[Hg] 03/05/2024 08:42 AM Oxygen Saturation 95 % 03/05/2024 07:20 AM Heart Rate 67 /min Blood Pressure Systolic 121 mm[Hg] Blood Pressure Diastolic 69 mm[Hg] 03/04/2024 08:46 PM Oxygen Saturation 96 % 03/04/2024 07:02 PM Heart Rate 65 /min Blood Pressure Systolic 90 mm[Hg] Blood Pressure Diastolic 64 mm[Hg] 03/04/2024 10:26 AM Oxygen Saturation 99 % 03/04/2024 06:29 AM Heart Rate 57 /min Blood Pressure Systolic 124 mm[Hg] Blood Pressure Diastolic 62 mm[Hg] 03/02/2024 12:36 PM Temperature 97.4 [degF] Respiratory Rate 15 /min 02/28/2024 05:34 PM Body Weight 211.4 [lb_av] Body Mass Index 41.28 kg/m2 02/25/2024 06:47 PM Temperature 98.6 [degF] Respiratory Rate 18 /min 02/25/2024 08:28 AM Temperature 97.6 [degF] Respiratory Rate 18 /min 02/24/2024 06:32 PM Temperature 98.1 [degF] Respiratory Rate 20 /min 02/24/2024 08:04 AM Temperature 97.9 [degF] Respiratory Rate 18 /min 02/23/2024 06:40 PM Temperature 97.8 [degF] Respiratory Rate 20 /min 02/23/2024 07:54 AM Temperature 98 [degF] Respiratory Rate 18 /min 02/22/2024 06:05 PM Respiratory Rate 20 /min 02/22/2024 06:04 PM Temperature 97.9 [degF] 02/22/2024 08:59 AM Temperature 97.8 [degF] Respiratory Rate 19 /min 02/21/2024 08:30 PM Temperature 98.6 [degF] Respiratory Rate 17 /min 02/20/2024 05:54 AM Body Weight 200 [lb_av] Body Mass Index 39.06 kg/m2 02/15/2024 01:01 AM Body Weight 206 [lb_av] Body Mass Index 40.23 kg/m2 02/03/2024 11:29 AM Body Weight 206 [lb_av] Body Mass Index 40.23 kg/m2 02/02/2024 11:34 AM Body Weight 204.8 [lb_av] Body Mass Index 39.99 kg/m2 02/01/2024 05:22 PM Body Weight 205 [lb_av] Body Mass Index 40.03 kg/m2 01/29/2024 08:39 AM Body Weight 212.8 [lb_av] Body Mass Index 41.56 kg/m2 12/29/2023 10:40 AM Body Weight 205.6 [lb_av] Body Mass Index 40.15 kg/m2 11/03/2019 02:35 PM Body Height 60 [in_us] 03/09/2024 11:32 AM Temperature 97.6 [degF] Respiratory Rate 20 /min Heart Rate 62 /min 03/09/2024 08:14 AM Oxygen Saturation 95 % 03/09/2024 07:20 AM Heart Rate 63 /min Blood Pressure Systolic 118 mm[Hg] Blood Pressure Diastolic 64 mm[Hg] 03/09/2024 06:15 PM Oxygen Saturation 94 % Heart Rate 60 /min Blood Pressure Systolic 120 mm[Hg] Blood Pressure Diastolic 61 mm[Hg] 03/11/2024 04:38 PM Body Weight 199.2 [lb_av] Body Mass Index 38.9 kg/m2 03/11/2024 11:04 AM Oxygen Saturation 95 % 03/11/2024 06:32 AM Heart Rate 61 /min Blood Pressure Systolic 103 mm[Hg] Blood Pressure Diastolic 51 mm[Hg] 03/10/2024 07:49 PM Body Weight 206.2 [lb_av] Body Mass Index 40.27 kg/m2 03/10/2024 06:40 PM Oxygen Saturation 94 % Heart Rate 61 /min Blood Pressure Systolic 124 mm[Hg] Blood Pressure Diastolic 67 mm[Hg] 03/10/2024 08:09 AM Oxygen Saturation 95 % 03/10/2024 07:31 AM Heart Rate 64 /min Blood Pressure Systolic 125 mm[Hg] Blood Pressure Diastolic 60 mm[Hg] 03/12/2024 03:46 PM Body Weight 200 [lb_av] Body Mass Index 39.06 kg/m2 03/12/2024 08:14 AM Oxygen Saturation 93 % Blood Pressure Systolic 112 mm[Hg] Blood Pressure Diastolic 82 mm[Hg] 03/12/2024 08:13 AM Heart Rate 70 /min 03/11/2024 06:47 PM Heart Rate 72 /min Blood Pressure Systolic 104 mm[Hg] Blood Pressure Diastolic 62 mm[Hg] 03/11/2024 06:46 PM Oxygen Saturation 92 % 03/13/2024 02:36 PM Body Weight 198.2 [lb_av] Body Mass Index 38.7 kg/m2 03/13/2024 08:12 AM Oxygen Saturation 93 % 03/13/2024 08:11 AM Heart Rate 74 /min Blood Pressure Systolic 108 mm[Hg] Blood Pressure Diastolic 58 mm[Hg] 03/13/2024 01:52 AM Heart Rate 63 /min Blood Pressure Systolic 93 mm[Hg] Blood Pressure Diastolic 48 mm[Hg] 03/12/2024 08:17 PM Heart Rate 42 /min Blood Pressure Systolic 91 mm[Hg] Blood Pressure Diastolic 63 mm[Hg] 03/12/2024 07:14 PM Oxygen Saturation 96 % 03/13/2024 06:46 PM Heart Rate 74 /min Blood Pressure Systolic 112 mm[Hg] Blood Pressure Diastolic 59 mm[Hg] 03/13/2024 06:42 PM Oxygen Saturation 92 % 03/15/2024 07:12 AM Oxygen Saturation 94 % 03/15/2024 07:06 AM Heart Rate 64 /min Blood Pressure Systolic 124 mm[Hg] Blood Pressure Diastolic 61 mm[Hg] 03/14/2024 06:27 PM Oxygen Saturation 94 % Heart Rate 68 /min Blood Pressure Systolic 116 mm[Hg] Blood Pressure Diastolic 60 mm[Hg] 03/14/2024 08:13 AM Oxygen Saturation 94 % 03/14/2024 07:35 AM Heart Rate 70 /min Blood Pressure Systolic 110 mm[Hg] Blood Pressure Diastolic 63 mm[Hg] 03/15/2024 06:34 PM Oxygen Saturation 94 % Heart Rate 61 /min Blood Pressure Systolic 120 mm[Hg] Blood Pressure Diastolic 64 mm[Hg] 03/17/2024 06:37 AM Oxygen Saturation 92 % Heart Rate 64 /min Blood Pressure Systolic 111 mm[Hg] Blood Pressure Diastolic 61 mm[Hg] 03/16/2024 06:19 PM Heart Rate 61 /min Blood Pressure Systolic 112 mm[Hg] Blood Pressure Diastolic 62 mm[Hg] 03/16/2024 06:18 PM Oxygen Saturation 95 % 03/16/2024 09:38 AM Temperature 97.7 [degF] Oxygen Saturation 95 % Respiratory Rate 16 /min Heart Rate 57 /min Blood Pressure Systolic 109 mm[Hg] Blood Pressure Diastolic 63 mm[Hg] 03/17/2024 06:10 PM Heart Rate 61 /min Blood Pressure Systolic 115 mm[Hg] Blood Pressure Diastolic 61 mm[Hg] 03/17/2024 06:09 PM Oxygen Saturation 94 % 03/18/2024 07:24 PM Heart Rate 76 /min Blood Pressure Systolic 103 mm[Hg] Blood Pressure Diastolic 60 mm[Hg] 03/18/2024 06:49 PM Oxygen Saturation 93 % 03/18/2024 02:05 PM Oxygen Saturation 93 % 03/18/2024 07:49 AM Heart Rate 67 /min Blood Pressure Systolic 108 mm[Hg] Blood Pressure Diastolic 54 mm[Hg] 03/19/2024 08:42 AM Oxygen Saturation 95 % 03/19/2024 08:41 AM Heart Rate 78 /min Blood Pressure Systolic 114 mm[Hg] Blood Pressure Diastolic 69 mm[Hg] 03/19/2024 06:05 PM Oxygen Saturation 94 % Heart Rate 72 /min Blood Pressure Systolic 112 mm[Hg] Blood Pressure Diastolic 72 mm[Hg] 03/20/2024 06:03 PM Heart Rate 68 /min Blood Pressure Systolic 111 mm[Hg] Blood Pressure Diastolic 63 mm[Hg] 03/20/2024 06:02 PM Oxygen Saturation 94 % 03/20/2024 09:34 AM Oxygen Saturation 92 % 03/20/2024 07:04 AM Heart Rate 62 /min Blood Pressure Systolic 104 mm[Hg] Blood Pressure Diastolic 52 mm[Hg] 03/21/2024 07:13 AM Oxygen Saturation 92 % 03/21/2024 07:12 AM Heart Rate 64 /min Blood Pressure Systolic 140 mm[Hg] Blood Pressure Diastolic 68 mm[Hg] 03/22/2024 08:44 AM Oxygen Saturation 94 % Heart Rate 78 /min Blood Pressure Systolic 108 mm[Hg] Blood Pressure Diastolic 64 mm[Hg] 03/21/2024 06:01 PM Heart Rate 65 /min Blood Pressure Systolic 129 mm[Hg] Blood Pressure Diastolic 67 mm[Hg] 03/21/2024 06:00 PM Oxygen Saturation 93 % 03/23/2024 02:46 PM Oxygen Saturation 95 % 03/23/2024 06:45 AM Heart Rate 81 /min Blood Pressure Systolic 109 mm[Hg] Blood Pressure Diastolic 69 mm[Hg] 03/22/2024 06:02 PM Heart Rate 74 /min Blood Pressure Systolic 112 mm[Hg] Blood Pressure Diastolic 66 mm[Hg] 03/22/2024 06:01 PM Oxygen Saturation 93 % 03/23/2024 06:05 PM Heart Rate 60 /min Blood Pressure Systolic 112 mm[Hg] Blood Pressure Diastolic 61 mm[Hg] 03/23/2024 06:04 PM Oxygen Saturation 93 % 03/23/2024 04:14 PM Temperature 97.6 [degF] Oxygen Saturation 95 % Respiratory Rate 19 /min Heart Rate 58 /min Blood Pressure Systolic 98 mm[Hg] Blood Pressure Diastolic 47 mm[Hg] 03/24/2024 09:20 PM Oxygen Saturation 95 % 03/24/2024 06:37 PM Heart Rate 60 /min Blood Pressure Systolic 105 mm[Hg] Blood Pressure Diastolic 45 mm[Hg] 03/24/2024 08:31 AM Oxygen Saturation 94 % 03/24/2024 07:19 AM Heart Rate 63 /min Blood Pressure Systolic 114 mm[Hg] Blood Pressure Diastolic 62 mm[Hg] 03/25/2024 07:16 AM Oxygen Saturation 90 % 03/25/2024 07:01 AM Heart Rate 59 /min Blood Pressure Systolic 110 mm[Hg] Blood Pressure Diastolic 58 mm[Hg] 03/26/2024 02:32 PM Oxygen Saturation 96 % 03/26/2024 07:17 AM Heart Rate 62 /min Blood Pressure Systolic 97 mm[Hg] Blood Pressure Diastolic 54 mm[Hg] 03/26/2024 05:29 AM Oxygen Saturation 97 % 03/25/2024 07:20 PM Heart Rate 65 /min Blood Pressure Systolic 92 mm[Hg] Blood Pressure Diastolic 50 mm[Hg] 03/27/2024 05:09 AM Heart Rate 75 /min Blood Pressure Systolic 109 mm[Hg] Blood Pressure Diastolic 51 mm[Hg] 03/26/2024 07:05 PM Oxygen Saturation 94 % 03/27/2024 06:32 PM Heart Rate 57 /min Blood Pressure Systolic 117 mm[Hg] Blood Pressure Diastolic 58 mm[Hg] 03/27/2024 06:50 AM Oxygen Saturation 90 % 03/27/2024 06:46 AM Heart Rate 56 /min Blood Pressure Systolic 130 mm[Hg] Blood Pressure Diastolic 60 mm[Hg] 03/28/2024 06:17 PM Oxygen Saturation 93 % Heart Rate 59 /min Blood Pressure Systolic 115 mm[Hg] Blood Pressure Diastolic 62 mm[Hg] 03/28/2024 09:07 AM Oxygen Saturation 95 % 03/28/2024 07:34 AM Heart Rate 65 /min Blood Pressure Systolic 121 mm[Hg] Blood Pressure Diastolic 54 mm[Hg] 03/29/2024 06:36 PM Heart Rate 62 /min Blood Pressure Systolic 114 mm[Hg] Blood Pressure Diastolic 52 mm[Hg] 03/29/2024 06:35 PM Oxygen Saturation 96 % 03/29/2024 08:18 AM Oxygen Saturation 94 % Heart Rate 58 /min Blood Pressure Systolic 96 mm[Hg] Blood Pressure Diastolic 40 mm[Hg] 03/30/2024 10:56 AM Body Weight 203 [lb_av] Body Mass Index 39.64 kg/m2 03/30/2024 09:01 AM Temperature 97.5 [degF] Oxygen Saturation 91 % Respiratory Rate 17 /min Heart Rate 58 /min Blood Pressure Systolic 108 mm[Hg] Blood Pressure Diastolic 45 mm[Hg] 03/30/2024 08:25 AM Heart Rate 58 /min Blood Pressure Systolic 108 mm[Hg] Blood Pressure Diastolic 45 mm[Hg] 03/31/2024 06:02 PM Oxygen Saturation 93 % Heart Rate 62 /min Blood Pressure Systolic 110 mm[Hg] Blood Pressure Diastolic 60 mm[Hg] 03/31/2024 03:59 PM Body Weight 200.6 [lb_av] Body Mass Index 39.17 kg/m2 03/31/2024 01:36 PM Oxygen Saturation 91 % 03/31/2024 06:36 AM Heart Rate 65 /min Blood Pressure Systolic 109 mm[Hg] Blood Pressure Diastolic 55 mm[Hg] 03/30/2024 06:02 PM Heart Rate 62 /min Blood Pressure Systolic 111 mm[Hg] Blood Pressure Diastolic 63 mm[Hg] 03/30/2024 06:01 PM Oxygen Saturation 93 % 04/01/2024 07:00 AM Heart Rate 59 /min Blood Pressure Systolic 116 mm[Hg] Blood Pressure Diastolic 63 mm[Hg] 04/01/2024 11:32 AM Oxygen Saturation 93 % 04/01/2024 06:32 PM Oxygen Saturation 92 % Heart Rate 62 /min Blood Pressure Systolic 94 mm[Hg] Blood Pressure Diastolic 49 mm[Hg] 04/01/2024 01:49 PM Body Weight 204.8 [lb_av] Body Mass Index 39.99 kg/m2 04/02/2024 01:30 PM Oxygen Saturation 94 % 04/02/2024 06:44 AM Heart Rate 68 /min Blood Pressure Systolic 112 mm[Hg] Blood Pressure Diastolic 63 mm[Hg] 04/02/2024 07:16 PM Oxygen Saturation 95 % Heart Rate 58 /min Blood Pressure Systolic 105 mm[Hg] Blood Pressure Diastolic 48 mm[Hg] 04/02/2024 03:00 PM Body Weight 200.6 [lb_av] Body Mass Index 39.17 kg/m2 04/03/2024 07:11 PM Heart Rate 62 /min Blood Pressure Systolic 101 mm[Hg] Blood Pressure Diastolic 50 mm[Hg] 04/03/2024 07:05 PM Oxygen Saturation 94 % 04/03/2024 10:15 AM Oxygen Saturation 94 % 04/03/2024 08:18 AM Heart Rate 63 /min Blood Pressure Systolic 114 mm[Hg] Blood Pressure Diastolic 61 mm[Hg] 04/04/2024 06:18 PM Heart Rate 61 /min Blood Pressure Systolic 108 mm[Hg] Blood Pressure Diastolic 63 mm[Hg] 04/04/2024 08:56 AM Heart Rate 58 /min Blood Pressure Systolic 106 mm[Hg] Blood Pressure Diastolic 54 mm[Hg] 04/04/2024 06:17 PM Oxygen Saturation 93 % 04/04/2024 09:22 AM Oxygen Saturation 94 % 04/05/2024 09:50 AM Oxygen Saturation 94 % 04/05/2024 08:46 AM Heart Rate 58 /min Blood Pressure Systolic 112 mm[Hg] Blood Pressure Diastolic 61 mm[Hg] 04/05/2024 06:34 PM Oxygen Saturation 94 % Heart Rate 59 /min Blood Pressure Systolic 109 mm[Hg] Blood Pressure Diastolic 56 mm[Hg] 04/06/2024 06:52 AM Heart Rate 76 /min Blood Pressure Systolic 112 mm[Hg] Blood Pressure Diastolic 54 mm[Hg] 04/06/2024 06:10 PM Heart Rate 71 /min Blood Pressure Systolic 107 mm[Hg] Blood Pressure Diastolic 61 mm[Hg] 04/06/2024 06:09 PM Oxygen Saturation 94 % 04/06/2024 08:52 AM Temperature 96.4 [degF] Oxygen Saturation 96 % Respiratory Rate 17 /min Heart Rate 76 /min Body Weight 203.6 [lb_av] Body Mass Index 39.76 kg/m2 04/07/2024 06:08 PM Heart Rate 78 /min Blood Pressure Systolic 124 mm[Hg] Blood Pressure Diastolic 76 mm[Hg] 04/07/2024 06:07 PM Oxygen Saturation 94 % 04/07/2024 08:36 AM Oxygen Saturation 95 % 04/07/2024 08:05 AM Heart Rate 69 /min Blood Pressure Systolic 112 mm[Hg] Blood Pressure Diastolic 68 mm[Hg] 04/08/2024 06:56 AM Heart Rate 58 /min Blood Pressure Systolic 124 mm[Hg] Blood Pressure Diastolic 49 mm[Hg] 04/08/2024 01:17 PM Oxygen Saturation 94 % 04/09/2024 06:40 AM Oxygen Saturation 95 % Heart Rate 82 /min Blood Pressure Systolic 128 mm[Hg] Blood Pressure Diastolic 78 mm[Hg] 04/08/2024 08:29 PM Oxygen Saturation 98 % 04/08/2024 08:11 PM Heart Rate 68 /min Blood Pressure Systolic 82 mm[Hg] Blood Pressure Diastolic 54 mm[Hg] 04/09/2024 06:42 PM Heart Rate 62 /min Blood Pressure Systolic 104 mm[Hg] Blood Pressure Diastolic 64 mm[Hg] 04/10/2024 05:51 PM Heart Rate 68 /min Blood Pressure Systolic 124 mm[Hg] Blood Pressure Diastolic 66 mm[Hg] 04/10/2024 06:00 PM Oxygen Saturation 94 % 04/10/2024 06:43 AM Heart Rate 63 /min Blood Pressure Systolic 113 mm[Hg] Blood Pressure Diastolic 60 mm[Hg] 04/10/2024 06:44 AM Oxygen Saturation 91 % 04/11/2024 06:24 PM Heart Rate 61 /min Blood Pressure Systolic 104 mm[Hg] Blood Pressure Diastolic 61 mm[Hg] 04/11/2024 06:07 PM Oxygen Saturation 93 % 04/11/2024 07:53 AM Oxygen Saturation 94 % 04/11/2024 07:40 AM Heart Rate 60 /min Blood Pressure Systolic 110 mm[Hg] Blood Pressure Diastolic 64 mm[Hg] 04/12/2024 06:18 PM Heart Rate 60 /min Blood Pressure Systolic 110 mm[Hg] Blood Pressure Diastolic 61 mm[Hg] 04/12/2024 06:03 PM Oxygen Saturation 93 % 04/12/2024 08:50 AM Oxygen Saturation 94 % 04/12/2024 08:23 AM Heart Rate 61 /min Blood Pressure Systolic 108 mm[Hg] Blood Pressure Diastolic 49 mm[Hg] 04/13/2024 09:38 AM Temperature 97.2 [degF] Oxygen Saturation 91 % Respiratory Rate 17 /min Heart Rate 57 /min 04/13/2024 08:47 AM Body Weight 203.6 [lb_av] Body Mass Index 39.76 kg/m2 04/13/2024 08:38 AM Oxygen Saturation 91 % 04/13/2024 08:37 AM Heart Rate 57 /min Blood Pressure Systolic 86 mm[Hg] Blood Pressure Diastolic 62 mm[Hg] 04/14/2024 08:36 AM Heart Rate 67 /min 04/14/2024 08:37 AM Oxygen Saturation 93 % Blood Pressure Systolic 140 mm[Hg] Blood Pressure Diastolic 86 mm[Hg] 04/13/2024 06:06 PM Oxygen Saturation 93 % Heart Rate 62 /min Blood Pressure Systolic 107 mm[Hg] Blood Pressure Diastolic 61 mm[Hg] 04/15/2024 07:24 PM Heart Rate 64 /min Blood Pressure Systolic 90 mm[Hg] Blood Pressure Diastolic 53 mm[Hg] 04/15/2024 07:25 AM Oxygen Saturation 90 % Heart Rate 61 /min Blood Pressure Systolic 117 mm[Hg] Blood Pressure Diastolic 53 mm[Hg] 04/14/2024 07:00 PM Heart Rate 61 /min Blood Pressure Systolic 107 mm[Hg] Blood Pressure Diastolic 63 mm[Hg] 04/14/2024 06:59 PM Oxygen Saturation 93 % 04/16/2024 06:09 PM Heart Rate 64 /min Blood Pressure Systolic 104 mm[Hg] Blood Pressure Diastolic 59 mm[Hg] 04/16/2024 06:08 PM Oxygen Saturation 93 % 04/16/2024 08:16 AM Oxygen Saturation 94 % 04/16/2024 07:28 AM Heart Rate 68 /min Blood Pressure Systolic 124 mm[Hg] Blood Pressure Diastolic 70 mm[Hg] 04/16/2024 02:01 AM Oxygen Saturation 92 % 04/17/2024 01:06 PM Oxygen Saturation 94 % 04/17/2024 07:40 AM Heart Rate 65 /min Blood Pressure Systolic 116 mm[Hg] Blood Pressure Diastolic 64 mm[Hg] 04/17/2024 05:44 PM Oxygen Saturation 94 % Heart Rate 63 /min Blood Pressure Systolic 104 mm[Hg] Blood Pressure Diastolic 58 mm[Hg] 04/18/2024 06:26 PM Heart Rate 61 /min Blood Pressure Systolic 104 mm[Hg] Blood Pressure Diastolic 63 mm[Hg] 04/18/2024 06:25 PM Oxygen Saturation 93 % 04/18/2024 09:33 AM Oxygen Saturation 92 % 04/18/2024 09:02 AM Heart Rate 59 /min Blood Pressure Systolic 118 mm[Hg] Blood Pressure Diastolic 43 mm[Hg] 04/19/2024 08:12 AM Oxygen Saturation 94 % 04/19/2024 07:32 AM Heart Rate 68 /min Blood Pressure Systolic 115 mm[Hg] Blood Pressure Diastolic 70 mm[Hg] 04/20/2024 06:08 PM Oxygen Saturation 93 % 04/20/2024 05:32 PM Body Weight 205 [lb_av] Body Mass Index 40.03 kg/m2 04/20/2024 03:06 PM Temperature 97.6 [degF] Respiratory Rate 17 /min 04/20/2024 01:12 PM Oxygen Saturation 95 % 04/20/2024 08:18 AM Heart Rate 69 /min Blood Pressure Systolic 117 mm[Hg] Blood Pressure Diastolic 64 mm[Hg] 04/19/2024 06:38 PM Heart Rate 61 /min Blood Pressure Systolic 102 mm[Hg] Blood Pressure Diastolic 62 mm[Hg] 04/19/2024 06:37 PM Oxygen Saturation 93 % 04/21/2024 12:57 PM Oxygen Saturation 94 % 04/21/2024 07:54 AM Heart Rate 78 /min Blood Pressure Systolic 118 mm[Hg] Blood Pressure Diastolic 69 mm[Hg] 04/20/2024 08:01 PM Heart Rate 64 /min Blood Pressure Systolic 107 mm[Hg] Blood Pressure Diastolic 62 mm[Hg] 04/22/2024 09:37 AM Oxygen Saturation 94 % 04/21/2024 06:34 PM Oxygen Saturation 95 % Heart Rate 70 /min Blood Pressure Systolic 126 mm[Hg] Blood Pressure Diastolic 78 mm[Hg] 04/22/2024 06:55 AM Heart Rate 57 /min Blood Pressure Systolic 94 mm[Hg] Blood Pressure Diastolic 54 mm[Hg] 04/23/2024 08:48 AM Oxygen Saturation 94 % Heart Rate 76 /min Blood Pressure Systolic 124 mm[Hg] Blood Pressure Diastolic 78 mm[Hg] 04/23/2024 01:06 AM Heart Rate 65 /min Blood Pressure Systolic 100 mm[Hg] Blood Pressure Diastolic 58 mm[Hg] 04/22/2024 11:37 PM Oxygen Saturation 92 % 04/24/2024 12:16 AM Oxygen Saturation 96 % Heart Rate 70 /min Blood Pressure Systolic 102 mm[Hg] Blood Pressure Diastolic 58 mm[Hg] 04/24/2024 10:33 PM Heart Rate 57 /min Blood Pressure Systolic 94 mm[Hg] Blood Pressure Diastolic 54 mm[Hg] 04/24/2024 02:42 PM Oxygen Saturation 96 % 04/24/2024 07:42 AM Heart Rate 81 /min Blood Pressure Systolic 112 mm[Hg] Blood Pressure Diastolic 70 mm[Hg] 04/25/2024 06:36 PM Heart Rate 60 /min Blood Pressure Systolic 111 mm[Hg] Blood Pressure Diastolic 62 mm[Hg] 04/25/2024 05:53 AM Oxygen Saturation 96 % 04/25/2024 08:17 AM Heart Rate 62 /min Blood Pressure Systolic 118 mm[Hg] Blood Pressure Diastolic 72 mm[Hg] 04/25/2024 09:38 AM Oxygen Saturation 94 % 04/25/2024 06:33 PM Oxygen Saturation 93 % 04/26/2024 06:02 PM Heart Rate 61 /min Blood Pressure Systolic 107 mm[Hg] Blood Pressure Diastolic 65 mm[Hg] 04/26/2024 06:01 PM Oxygen Saturation 93 % 04/26/2024 07:46 AM Heart Rate 67 /min Blood Pressure Systolic 114 mm[Hg] Blood Pressure Diastolic 72 mm[Hg] 04/26/2024 08:31 AM Oxygen Saturation 94 % 04/27/2024 08:59 AM Temperature 97.8 [degF] Oxygen Saturation 93 % Respiratory Rate 17 /min Heart Rate 59 /min Blood Pressure Systolic 110 mm[Hg] Blood Pressure Diastolic 62 mm[Hg] 04/27/2024 08:58 AM Oxygen Saturation 93 % Body Weight 208.4 [lb_av] Body Mass Index 40.7 kg/m2 04/27/2024 06:02 PM Heart Rate 62 /min Blood Pressure Systolic 107 mm[Hg] Blood Pressure Diastolic 64 mm[Hg] 04/27/2024 06:01 PM Oxygen Saturation 93 % 04/27/2024 06:42 AM Heart Rate 59 /min Blood Pressure Systolic 110 mm[Hg] Blood Pressure Diastolic 62 mm[Hg] 04/28/2024 06:10 PM Heart Rate 66 /min Blood Pressure Systolic 115 mm[Hg] Blood Pressure Diastolic 68 mm[Hg] 04/28/2024 08:34 AM Oxygen Saturation 93 % 04/28/2024 06:19 AM Heart Rate 63 /min Blood Pressure Systolic 113 mm[Hg] Blood Pressure Diastolic 56 mm[Hg] 04/29/2024 06:36 AM Heart Rate 60 /min Blood Pressure Systolic 117 mm[Hg] Blood Pressure Diastolic 70 mm[Hg] 04/29/2024 06:40 AM Oxygen Saturation 98 % 04/28/2024 07:22 PM Oxygen Saturation 93 % 04/30/2024 07:37 AM Heart Rate 60 /min Blood Pressure Systolic 110 mm[Hg] Blood Pressure Diastolic 63 mm[Hg] 04/29/2024 06:40 PM Heart Rate 57 /min Blood Pressure Systolic 108 mm[Hg] Blood Pressure Diastolic 62 mm[Hg] 04/30/2024 12:20 AM Oxygen Saturation 96 % 04/30/2024 01:19 PM Oxygen Saturation 96 % 05/01/2024 07:27 AM Heart Rate 63 /min Blood Pressure Systolic 112 mm[Hg] Blood Pressure Diastolic 60 mm[Hg] 04/30/2024 06:12 PM Body Weight 205.6 [lb_av] Body Mass Index 40.15 kg/m2 04/30/2024 10:12 PM Heart Rate 55 /min Blood Pressure Systolic 103 mm[Hg] Blood Pressure Diastolic 62 mm[Hg] 05/01/2024 08:00 AM Oxygen Saturation 96 % 04/30/2024 07:24 PM Oxygen Saturation 98 % 05/01/2024 07:05 PM Heart Rate 65 /min Blood Pressure Systolic 107 mm[Hg] Blood Pressure Diastolic 64 mm[Hg] 05/02/2024 05:40 AM Oxygen Saturation 92 % 05/02/2024 07:26 AM Oxygen Saturation 94 % 05/02/2024 06:47 PM Heart Rate 77 /min Blood Pressure Systolic 128 mm[Hg] Blood Pressure Diastolic 70 mm[Hg] 05/02/2024 06:46 PM Oxygen Saturation 95 % 05/02/2024 07:25 AM Heart Rate 65 /min Blood Pressure Systolic 121 mm[Hg] Blood Pressure Diastolic 62 mm[Hg] 05/03/2024 08:55 AM Oxygen Saturation 94 % 05/03/2024 08:11 AM Heart Rate 70 /min Blood Pressure Systolic 134 mm[Hg] Blood Pressure Diastolic 75 mm[Hg] 05/04/2024 07:37 AM Oxygen Saturation 94 % 05/04/2024 06:10 PM Oxygen Saturation 93 % 05/03/2024 06:30 PM Oxygen Saturation 94 % Heart Rate 65 /min Blood Pressure Systolic 122 mm[Hg] Blood Pressure Diastolic 62 mm[Hg] 05/04/2024 11:01 AM Temperature 97.9 [degF] Respiratory Rate 17 /min 05/04/2024 06:11 PM Heart Rate 62 /min Blood Pressure Systolic 114 mm[Hg] Blood Pressure Diastolic 62 mm[Hg] 05/04/2024 07:34 AM Heart Rate 65 /min Blood Pressure Systolic 128 mm[Hg] Blood Pressure Diastolic 71 mm[Hg] 05/05/2024 06:14 PM Heart Rate 76 /min Blood Pressure Systolic 122 mm[Hg] Blood Pressure Diastolic 74 mm[Hg] 05/05/2024 05:36 PM Oxygen Saturation 94 % 05/05/2024 06:12 AM Heart Rate 68 /min Blood Pressure Systolic 118 mm[Hg] Blood Pressure Diastolic 61 mm[Hg] 05/05/2024 06:11 AM Oxygen Saturation 95 % 05/06/2024 06:24 AM Oxygen Saturation 90 % 05/06/2024 06:23 AM Heart Rate 60 /min Blood Pressure Systolic 132 mm[Hg] Blood Pressure Diastolic 67 mm[Hg] 05/07/2024 08:20 AM Oxygen Saturation 96 % Heart Rate 61 /min Blood Pressure Systolic 115 mm[Hg] Blood Pressure Diastolic 66 mm[Hg] 05/06/2024 08:57 PM Oxygen Saturation 96 % 05/06/2024 07:21 PM Heart Rate 61 /min Blood Pressure Systolic 87 mm[Hg] Blood Pressure Diastolic 55 mm[Hg] 05/07/2024 07:34 PM Oxygen Saturation 92 % Heart Rate 63 /min Blood Pressure Systolic 87 mm[Hg] Blood Pressure Diastolic 58 mm[Hg] 05/08/2024 07:35 PM Heart Rate 63 /min Blood Pressure Systolic 113 mm[Hg] Blood Pressure Diastolic 68 mm[Hg] 05/08/2024 07:27 PM Oxygen Saturation 95 % 05/08/2024 12:20 PM Oxygen Saturation 95 % 05/09/2024 07:35 AM Heart Rate 69 /min Blood Pressure Systolic 124 mm[Hg] Blood Pressure Diastolic 64 mm[Hg] 05/09/2024 08:48 AM Oxygen Saturation 94 % 05/09/2024 06:01 PM Oxygen Saturation 93 % 05/10/2024 06:04 PM Oxygen Saturation 94 % 05/10/2024 08:00 PM Heart Rate 65 /min Blood Pressure Systolic 104 mm[Hg] Blood Pressure Diastolic 64 mm[Hg] 05/10/2024 08:13 AM Heart Rate 69 /min Blood Pressure Systolic 115 mm[Hg] Blood Pressure Diastolic 67 mm[Hg] 05/09/2024 06:50 PM Heart Rate 64 /min Blood Pressure Systolic 107 mm[Hg] Blood Pressure Diastolic 63 mm[Hg] 05/10/2024 08:00 AM Oxygen Saturation 94 % 05/11/2024 06:04 PM Heart Rate 64 /min Blood Pressure Systolic 109 mm[Hg] Blood Pressure Diastolic 63 mm[Hg] 05/11/2024 06:03 PM Oxygen Saturation 94 % 05/11/2024 10:17 AM Oxygen Saturation 90 % 05/11/2024 10:01 AM Temperature 97.5 [degF] Oxygen Saturation 90 % Respiratory Rate 17 /min Heart Rate 65 /min Blood Pressure Systolic 114 mm[Hg] Blood Pressure Diastolic 72 mm[Hg] 05/11/2024 06:32 AM Heart Rate 65 /min Blood Pressure Systolic 114 mm[Hg] Blood Pressure Diastolic 72 mm[Hg] 05/12/2024 06:55 PM Heart Rate 65 /min Blood Pressure Systolic 119 mm[Hg] Blood Pressure Diastolic 66 mm[Hg] 05/12/2024 06:54 PM Oxygen Saturation 94 % 05/12/2024 11:54 AM Oxygen Saturation 93 % 05/12/2024 07:41 AM Heart Rate 80 /min Blood Pressure Systolic 126 mm[Hg] Blood Pressure Diastolic 81 mm[Hg] 05/13/2024 10:19 AM Oxygen Saturation 94 % 05/13/2024 07:45 AM Heart Rate 61 /min Blood Pressure Systolic 107 mm[Hg] Blood Pressure Diastolic 64 mm[Hg] 05/13/2024 08:45 PM Oxygen Saturation 93 % 05/13/2024 08:13 PM Heart Rate 59 /min Blood Pressure Systolic 62 mm[Hg] Blood Pressure Diastolic 59 mm[Hg] 05/14/2024 10:28 PM Oxygen Saturation 94 % 05/14/2024 07:04 PM Heart Rate 62 /min Blood Pressure Systolic 94 mm[Hg] Blood Pressure Diastolic 50 mm[Hg] 05/14/2024 07:49 AM Oxygen Saturation 94 % 05/14/2024 07:47 AM Heart Rate 63 /min Blood Pressure Systolic 127 mm[Hg] Blood Pressure Diastolic 64 mm[Hg] 05/15/2024 09:07 AM Oxygen Saturation 94 % 05/15/2024 07:19 AM Heart Rate 67 /min Blood Pressure Systolic 117 mm[Hg] Blood Pressure Diastolic 68 mm[Hg] 05/16/2024 12:00 AM Oxygen Saturation 96 % 05/15/2024 07:11 PM Heart Rate 66 /min Blood Pressure Systolic 132 mm[Hg] Blood Pressure Diastolic 66 mm[Hg] 05/16/2024 06:11 PM Oxygen Saturation 94 % 05/16/2024 06:53 AM Oxygen Saturation 92 % Heart Rate 73 /min Blood Pressure Systolic 132 mm[Hg] Blood Pressure Diastolic 56 mm[Hg] 05/17/2024 08:33 AM Oxygen Saturation 94 % 05/18/2024 02:09 PM Temperature 97.6 [degF] Oxygen Saturation 94 % Respiratory Rate 17 /min Heart Rate 64 /min Blood Pressure Systolic 124 mm[Hg] Blood Pressure Diastolic 66 mm[Hg] 05/17/2024 06:04 PM Oxygen Saturation 93 % 05/19/2024 08:41 AM Oxygen Saturation 94 % 05/18/2024 06:07 PM Oxygen Saturation 93 % 05/20/2024 10:44 AM Oxygen Saturation 98 % 05/19/2024 06:58 PM Oxygen Saturation 93 % Social History No smoking Hx information available Encounters Type CPT Code Date Location Provider Indication s encounter report 11/03/2019 02:0 9 PM - 05/20/2024 03:33 PM Viktor Baker MD 01 Advance Directives Directive Description Verification Date Supporting Document(s) Resuscitation
--- OUTSIDE RECORDS SUMMARY | 2024-05-21 15:27 | XMS_ITS | Patient Health Record ---
Author Organization [facility] Address [address] [place] [address] Care Team Providers Care Feeder Tender Name Role Phone Joao Acuna Unavailable [phone] Reason For Referral No Information Medications Medication SIG (Take, Route, Frequency, Duration) Notes Start Date End Date Status Nitrostat 0.4 MG Dissolve 1 tablet(s) under the tongue may repeat every 5 minutes. Maximum of 3 doses in 15 minutes Sublingual for 30 Nitrostat 0.4mg Tablets, Sublingual Dissolve 1 tablet(s) under the tongue may repeat every 5 minutes. Maximum of 3 doses in 15 minutes #100 (One [place]) tablet(s) 01/18/2007 Active Caltrate 600 + D 600 mg(1,500mg) -400 unit 2 tab po q hs at supper for 30 *please review for potential update for e-prescription and drug interaction check* Caltrate 600 + D Tablet 2 tab po q hs at supper #30 (Thirty) 60 tablet bottle 10/18/2007 Active Rocaltrol 0.25 mcg Take 1 capsule(s) by mouth qam Oral for 30 Rocaltrol 0.25mcg Capsules Take 1 capsule(s) by mouth qam #30 (Thirty) capsule(s) 02/01/2007 Active Tricor 145 mg Take 1 tablet(s) by mouth daily Oral for 30 Tricor 145mg Tablet Take 1 tablet(s) by mouth daily #30 (Thirty) tablet(s) 06/17/2007 Active Metoprolol Tartrate 25 MG 1 tab(s) po q 12 hours Oral for 30 Metoprolol 25mg Tablet 1 tab(s) po q 12 hours #60 (Sixty) tablet(s) 01/18/2007 Active Simvastatin 40 MG Take 1 tablet(s) by mouth at bedtime. Stop Vytorin Oral for 30 Simvastatin 40mg Tablet Take 1 tablet(s) by mouth at bedtime. Stop Vytorin #30 (Thirty) tablet(s) 09/13/2007 Active Ergocalciferol Take 1 tablet(s) by mouth weekly X 8 weeks then once monthly. for 30 *please review for potential update for e-prescription and drug interaction check* Ergocalciferol 50,000IU Tablet Take 1 tablet(s) by mouth weekly X 8 weeks then once monthly. QS for 30 day(s) 10/18/2007 Active Aspirin Adult Low Strength 81 MG Take 1 tablet(s) by mouth qam Oral for 30 Aspirin 81mg Tablets, Enteric Coated Take 1 tablet(s) by mouth qam #30 (Thirty) tablet(s) 09/13/2007 Active Actos 15 MG Take 1 tablet(s) by mouth daily Oral for 30 Actos 15mg Tablet Take 1 tablet(s) by mouth daily #30 (Thirty) tablet(s) 05/06/2007 Active Problems Problem Type SNOMED Code ICD Code Onset Dates Problem Status W/U Status Risk Notes Problem Mild diabetic neuropathy with slight loss of protective sensation in feet (250.6) 2007 Active confirmed [id number]- Problem [place] hump (07355677) [place] hump (278.1) 2007 Active confirmed [id number]- Problem Kidney mass (233070285) Kidney mass (593.9) 2006 Active confirmed [id number]- Problem Hypertension (87604152) Hypertension (401.1) 2007 Active confirmed [id number]- Problem Disorder of sacrum (88862304) Sacroiliac pain (724.6) 2006 Active confirmed [id number]- Problem Unstable angina (0737909) Unstable angina (411.1) 2006 Active confirmed [id number]- Problem Coronary arteriosclerosis in [place] artery (4191065831026) ASHD (414.01) 2005 Active confirmed [id number]- Problem Chronic low back karmen n (519555451) Chronic low back pain (724.2) 2006 Active confirmed [id number]- Problem Migraine with aura (4787314) Classic migraine (346.00) 2007 Active confirmed [id number]- Problem Acquired hypothyroidism (389567842) Acquired hypothyroidism (244.9) 2005 Active confirmed [id number]- Problem Hoarseness (39336521) Hoarseness (784.49) 2006 Active confirmed [id number]- Problem Osteoporosis (60447079) Osteoporosis (733.09) 2007 Active confirmed [id number]- Problem C-reactive protein abnormal (924280410) Elevated C-reactive protein (CRP) (790.95) 2006 Active confirmed [id number]- Problem External hemorrhoids without complication (16146464) Hemorrhoids, external (455.3) 2007 Active confirmed [id number]- Problem Type II Diabetes Mellitus without complication (261173091) NIDDM (250.00) 2007 Active confirmed [id number]- Problem Type II diabetes mellitus without complication (518232936) Type 2 diabetes (250.00) 2007 Active confirmed [id number]- Problem Inclusion conjunctivitis (57493369) Inclusion conjunctivitis (077.0) 2005 Problem resolved confirmed [id number]- Problem Allergic rhinitis du e to pollen (54118224) Allergic rhinitis due to pollen (477.0) 2004 Problem resolved confirmed [id number]- Problem Acute sinusitis (04811589) Acute sinusitis, unspecified (461.9) 2003 Problem resolved confirmed [id number]- Problem 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 (575213312) Extrinsic asthma, with (acute) exacerbation (493.02) 2003 Problem resolved confirmed [id number]- Problem Sialolithiasis (50469010) Sialolithiasis (527.5) 2005 Problem resolved confirmed [id number]- Problem Gynecological examination normal (220876267679001) Routine gynecological examination (V72.31) 2006 Problem resolved confirmed [id number]- Problem Hypercholesterolemia (05218622) Hypercholesterolemia (272.0) 2004 Problem resolved confirmed [id number]- Problem Mixed urinary incontinence (516736288) Mixed urinary incontinence (788.33) 2007 Problem resolved confirmed [id number]- Problem Otalgia (12199270) Otalgia (388.71) 08/01 Problem resolved confirmed [id number]- Problem Shortness of breath (410623435) Shortness of breath (786.09) 2005 Problem resolved confirmed [id number]- Problem Shoulder pain (26740121) Shoulder pain (719.41) 2006 Problem resolved confirmed [id number]- Problem Acute bronchitis (67519366) Bronchitis, acute (466.0) 2004 Problem resolved confirmed [id number]- Problem Disorder of hematopoietic system (86983812) Other abnormal laboratory result on blood (790.99) 2004 Problem resolved confirmed [id number]- Problem Postmenopausal bleeding (83286852) Postmenopausal vaginal bleeding (627.1) 2007 Problem resolved confirmed [id number]- Problem Chest pain (02629607) Chest pain (786.51) 2005 Problem resolved confirmed [id number]- Problem 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 level (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.4) 2004 Problem resolved confirmed [id number]- Problem Esophageal stricture (83255360) Esophageal stricture (530.3) 2005 Problem resolved confirmed [id number]- Problem Pneumococcal pneumonia (300557771) Lobar pneumonia, organism unspecified (481) 2006 Problem resolved confirmed [id number]- Problem Lymphadenopathy (48209128) Lymphadenopathy (785.6) 2007 Problem resolved confirmed [id number]- Problem Ear ache (92291790) Ear ache (388.71) 2005 Problem resolved confirmed [id number]- Problem Mixed hyperlipidemia (590297163) Hypercholesterolemia with hypertriglyceridemia (272.2) 2004 Problem resolved confirmed [id number]- Problem Influenza (1695130) Influenza (487.8) 2004 Problem resolved confirmed [id number]- Problem Breast examination (14767322) Screening breast exam - other (V76.19) 2006 Problem resolved confirmed [id number]- Problem Postmenopausal osteoporosis (592462105) Postmenopausal osteoporosis (733.01) 2004 Problem resolved confirmed [id number]- Problem Seborrheic dermatiti s (70877321) Seborrheic dermatitis (690.18) 2003 Problem resolved confirmed [id number]- Problem Sore throat (036421705) Sore throat (784.1) 2004 Problem resolved confirmed [id number]- Problem Acute upper respiratory infection (91758783) Acute upper respiratory infection (465.8) 2006 Problem resolved confirmed [id number]- Problem Acute atopic conjunctivitis (29517237) Acute conjunctivitis, atopic (372.05) 2004 Problem resolved confirmed [id number]- Problem Allergic rhinitis caused by pollen (16863513) Allergic rhinitis, pollen-induced (477.0) 2004 Problem resolved confirmed [id number]- Problem Candidal intertrigo (681807130) Candidal intertrigo (112.3) 2007 Problem resolved confirmed [id number]- Problem Otogenic otalgia (61402564) Ear pain due to ear disorder (388.71) 2006 Problem resolved confirmed [id number]- Problem Iron deficiency anemia secondary to inadequate dietary iron intake (707188266) Iron deficiency anemia, due to inadequate dietary intake (280.1) 2005 Problem resolved confirmed [id number]- Problem Urinary tract infection (52983951) Urinary tract infection (595.0) 2006 Problem resolved confirmed [id number]- Problem Acquired hypothyroidism (434723325) Acquired hypothyroidism (244.8) 2003 Problem resolved confirmed [id number]- Problem Acute sinusitis (22690309) Acute sinusitis (461.8) 2003 Problem resolved confirmed [id number]- Problem Chronic bronchitis (77563579) Chronic bronchitis (491.0) 2005 Problem resolved confirmed [id number]- Problem Abnormal laborat ory test findings without diagnosis (796.4) 2004 Problem resolved confirmed [id number]- Problem Urinary incontinence (082725245) urinary dribbling (788.30) 2006 Problem resolved confirmed [id number]- Problem Synovial cyst (442005417) Synovial cyst, unspecified (727.40) 2004 Problem resolved confirmed [id number]- Problem Acute upper respiratory infection (14210729) Upper respiratory illness (465.8) 2006 Problem resolved confirmed [id number]- Problem Essential hypertension (71006552) Essential hypertension (401.1) 2004 Problem resolved confirmed [id number]- Problem Gastroesophageal reflux disease (360089083) GERD (530.81) 2005 Problem resolved confirmed [id number]- Problem 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
--- OUTSIDE RECORDS SUMMARY | 2024-05-21 15:27 | XMS_ITS | Encounter Summary ---
Author Organization [facility] Address [address] [place] [address] Care Team Providers Care Paper Testing Supervisor Name Role Phone Viktor Baker MD Primary Care Provider [phone] Encounter Details Date Type Department Care Team (Latest Contact Info) Description 12/31/2006 Outpatient Historical [facility] [place] 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 Gender Identity Not on file Sexual Orientation Not on file documented as of this encounter Plan of Treatment Not on file documented as of this encounter Visit Diagnoses Diagnosis Esophageal stricture- Primary Stricture and stenosis of esophagus 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
--- OUTSIDE RECORDS SUMMARY | 2024-05-21 15:27 | XMS_ITS | Encounter Summary ---
Author Organization [facility] Address [address] [place] [address] Care Team Providers Care Wharf Tender Name Role Phone Viktor Baker MD Primary Care Provider [phone] Encounter Details Date Type Department Care Team (Latest Contact Info) Description 12/15/2006 Outpatient Historical [facility] 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
--- OUTSIDE RECORDS SUMMARY | 2024-05-21 15:27 | XMS_ITS | Clinical Summary ---
Author Organization [facility] Address [address] [facility] Attn: [place] [address] Care Team Providers Care Echometer Engineer Name Role Phone Viktor Baker MD Primary Care Provider [phone] Allergies Active Allergy Reactions Criticality Noted Date Comments Sulfa (Sulfonamide Antibiotics) Rash Low 10/29 Medications levothyroxine 175 mcg tablet Take 175 mcg by mouth daily implementation advisor. 0 Active OTHER Prednisolone 1%, Gatifloxacin 0.5%, Bromfenac 0.07%- 4 ml Start 3 days before surgery 1 drop 3times a day in the surgical eye for 24 days 1 mL 1 9 Active cholecalciferol 1,250 mcg (50,000 unit) CapsuleIndicati ons:Hypovitamin osis D Take 1 Capsule (50,000 Units) by mouth every 7 days. 13 Capsule 0 0 Active furosemide (LASIX) 40 mg tablet Take 40 mg by mouth daily. 5 Active polyethylene glycol 3350 (MIRALAX) 17 gram/dose Powder Take 1 SCOOP by mouth 2 times daily as needed . 6 Active oxygen home delivery Administer 2-3 L/min in each nostril Continuous as needed Primarily with activities . 6 Active umeclidinium-vi lanteroL (Anoro Ellipta) 62.5-25 mcg/actuation Disk with Device Take 1 Puff by inhalation daily . 6 Active Active Problems Problem Noted Date Diagnosed Date Pseudophakia of left eye 12/02/2018 Pseudophakia of right eye 11/18/2018 History of thyroid cancer 06/05/2017 Post-surgical hypothyroidism 03/04/2016 Type 2 diabetes mellitus wit h stage 3 chronic kidney disease, without long-term current use of insulin 02/12/2016 History of thromboembolism 02/12/2016 Supplemental oxygen dependent 02/12/2016 Chronic renal insufficiency, stage III (moderate ) 02/12/2016 GEOVANNI on CPAP 08/02/2015 Morbid obesity with BMI of 45.0-49.9, adult 07/2015 Chronic obstructive pulmonar y disease with acute exacerbation 08/02/2015 Peripheral edema 08/02/2015 Dysphagia 07/12/2014 Dysphagia, pharyngoesophageal phase 09/13/2009 Hypocalcemia Post-surgical hypoparathyroidism Resolved Problems Problem Noted [...] = 0.6 oz pur e alcohol) Comments Unknown Sex and Gender Information Value Date Recorded Sex Assigned at Not on file Legal Sex Female 2:35 PM PARISH WORKER Gender Identity Not on file Sexual Orientation Not on file Last Filed Vital Signs Vital Sign Reading Time Taken Comments Blood Pressure 125/70 04/01/2019 9:06 AM PARISH WORKER Pulse 72 04/01/2019 9:06 AM PARISH WORKER Temperature 36.3 ??C (97.3 ??F) 12/02/2018 8:27 AM CD T Respiratory Rate 18 12/02/2018 6:57 AM CDT Oxygen Saturation - - Inhaled Oxygen Concentration - - Weight 98.4 kg (217 lb) 04/01/2019 9:06 AM PARISH WORKER Height 157.5 cm (5' 2 ) 04/01/2019 9:06 AM PARISH WORKER Body Mass Index 39.69 04/01/2019 9:06 AM PARISH WORKER Plan of Treatment Health Maintenance Due Date Last Done Comments DIABETES ANNUAL FOOT EXAM 02/13/1962 DTAP/TDAP/TD VACCINES (1 - Tdap) 02/13/1963 ZOSTER VACCINE (1 of 2) 02/13/1994 PNEUMOCOCCAL VACCINE 65+ YEA RS (2 of 2 - PCV) 02/25/2005 02/26/2004 OSTEOPOROSIS SCREENING 02/13/2009 DIABETES HBA1C Q 6 MONTHS 05/19/20182017, 01/17/2016, 01/17/2016, Additional history exists DIABETES MICROALBUMIN ANNUAL SCREEN 11/16/2018 11/16/2017, 07/29/2014 LDL CHOLESTEROL ANNUAL 11/16/2018 8, 11/20/2016, 07/28/2014, Additional history exists RSV VACCINE (60+ or ) (1 - 1-dose 75+ series) 02/13/2019 DIABETES ANNUAL RETINAL EXAM 11/27/2019, 11/26/2018, 11/26/2018, Additional history exists INFLUENZA VACCINE (#1) 2023 COLORECTAL SCREENING Discontinued 01/07/2012 Colorectal Cancer Screening Discontinued FIT-DNA Q 3 years Discontinued FIT/FOBT Q 1 year Discontinued Flex Sig/CT Colonography Q 5 years Discontinued Medical Devices Implanted Type Area Sulfonation Equipment Operator Device Identifier Shelf Expiration Date Model / Serial / Lot Lens Io Tecnis 1pc 25.5 [id number] - [id number] Implanted:Qty: 1 on 11/18/2018 by Victorino John MD Eye Right: Eye [employer] 06/28/2022 [id number] / [id number] / Lens Io Tecnis 1pc 24.5 [id number] - [id number] Implanted:Qty: 1 on 12/02/2018 by Victorino John MD Eye Left: Eye [employer] 09/09/2022 [id number] / [id number] / Procedures Procedure Name Priority Date/Time Associated Diagnosis Comments MICROALBUMIN/CREATININ E RATIO, RANDOM UR Routine 11/16/2017 LIPID PANEL Routine 11/16/2017 HEMOGLOBIN A1C Routine 11/16/2017 from Last 3 Months or Most Recently Relevant to Health Maintenance Results * MICROALBUMIN/CREATININE RATIO, RANDOM UR (11/16/2017) ABSTRACTED MICROALBUMIN,URI NE ^ EXTERNAL LAB Comment:<1.2 MICROALBUMIN, URINE EXTERNAL LAB CREATININE, URINE EXTERNAL LAB MICROALBUMIN/CRE AT RATIO, UR EXTERNAL LAB MICROALBUMIN, URINE ^ mg/dL EXTERNAL LAB CREATININE, URINE ^ 29.0 - 226.0 mg/dL EXTERNAL LAB MICROALBUMIN/CRE AT RATIO, UR ^ 25.0 mg/g EXTERNAL LAB Urine URINE SPECIMEN OBTAINED BY CLEAN CATCH PROCEDURE / Unknown 11/16/2017 Narrative EXTERNAL LAB - 11/16/2017 12:00 AM CDT This order was created through External Result Entry us Abstract Sp Provider URINE ORDERABLES Final Res ult Performing Organization Address [facility] Co de Phone Number EXTERNAL LAB * HEMOGLOBIN A1C (11/16/2017) ABSTRACTED HGB A1C 5.7 EXTERNAL LAB HEMOGLOBIN A1C ^ 4.7 - 6.4 % EXTERNAL LAB HEMOGLOBIN A1C EXTERNAL LAB GLUCOSE, MEAN BLOOD EXTERNAL LAB Blood 11/16/2017 Narrative EXTERNAL LAB - 11/16/2017 12:00 AM CDT This order was created through External Result Entry us Abstract Sp Provider CHEMISTRY ORDERABLES Final Result Performing Organization Address [facility] Co de Phone Number EXTERNAL LAB * LIPID PANEL (11/16/2017) ABSTRACTED CHOLESTEROL 153 EXTERNAL LAB ABSTRACTED TRIGLYCERIDE 85 EXTERNAL LAB ABSTRACTED HDL 45 EXTERNAL LAB ABSTRACTED LDL CALCULATED 91 EXTERNAL LAB CHOLESTEROL ^ 200 mg/dL EXTERNAL LAB TRIGLYCERIDE ^ 150 mg/dL EXTERNAL LAB HDL ^ 40 - 59 mg/dL EXTERNAL LAB LDL CALCULATED ^ 100 mg/dL EXTERNAL LAB Blood 11/16/2017 Narrative EXTERNAL LAB - 11/16/2017 12:00 AM CDT This order was created through External Result Entry us Abstract Spg Provider CHEMISTRY ORDERABLES Final Result EXTERNAL LAB from Last 3 Months or Most Recently Relevant to Health Maintenance Care Teams Echometer Engineer Relationship Specialty Start Date End Date Viktor Baker MD [address] [phone] PCP - General Family Practice 01/27/11
--- OUTSIDE RECORDS SUMMARY | 2024-05-21 15:27 | XMS_ITS | Encounter Summary ---
Author Organization [facility] Address [address] [place] [address] Care Team Providers Care Dry Pan Operator Name Role Phone Viktor Baker MD Primary Care Provider [phone] Encounter Details Date Type Department Care Team (Latest Contact Info) Description 12/15/2006 Outpatient Historical [facility] Imaging Services [address] [place] [phone] Ti Ward MD [address] [place] [address] Dysphagia (Primary Dx) Social History Tobacco Use Types Packs/Day Years Used Date Smoking Tobacco: Never Assessed Comments Unknown Sex and Gender Information Value Date Recorded Sex Assigned at Not on file Legal Sex Female 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 Findings: The exam was performed utilizing barium. At the level of the C5 vertebral body, there is ananterior persistent filling defect in the barium column consistent with a cervical web. Remainderof the esophagus is unremarkable. No reflux or hiatal hernia is seen. Impression: Large anterior cervical esophageal web. - Dictated By: ??Kuldeep Molina M.D. Electronically Signed By: ??Kuldeep Molina M.D. Date Signed: 12/15/06 [facility] Procedure Note 02/18/2009 Exam: Barium SwallowDate/Time of Exam: Dec 15, 2006 9:50:00 AMHistory: 787.2 dysphagia. Findings: The exam was performed utilizing barium. At the level of the C5 vertebralbody, there is ananterior persistent filling defect in the barium column consistent with a cervicalweb. Remainderof the esophagus is unremarkable. No reflux or hiatal hernia is seen. Impression: Large anterior cervical esophageal web. - Dictated By: Kuldeep Molina M.D. Electronically Signed By: Kuldeep Molina M.D. Date Signed: 12/15/06 [facility] Ti Ward MD DIAGNOSTIC IMAGING ORDERABLES F inal Result documented in this encounter Visit Diagnoses Diagnosis Dysphagia- Primary documented in this encounter Care Teams Dry Pan Operator Relationship Specialty Start Date End Date Viktor Baker MD [address] [phone] PCP - General Family Practice 01/27/11 documented as of this encounter
--- OUTSIDE RECORDS SUMMARY | 2024-05-21 15:27 | XMS_ITS | Encounter Summary ---
Author Organization [facility] Address [address] [place] [address] Care Team Providers Care Assistant Property Manager Name Role Phone Viktor Baker MD Primary Care Provider [phone] Encounter Details Date Type Department Care Team (Latest Contact Info) Description 12/24/2006 Outpatient Historical [facility] [place] [address] [place] [address] Leonid Hope MD [address] [place] [address] Stricture and Stenosis of Esophagus (Primary Dx) Social History Tobacco Use Types Packs/Day Years Used Date Smoking Tobacco: Never Assessed Comments Unknown Sex and Gender Information Value Date Recorded Sex Assigned at Not on file Legal Sex Female 3:13 AM TOWER HELPER Gender Identity Not on file Sexual Orientation Not on file documented as of this encounter Plan of Treatment Not on file documented as of this encounter Visit Diagnoses Diagnosis Stricture and stenosis of esophagus- Primary documented in this encounter Care Teams Assistant Property Manager Relationship Specialty Start Date End Date Viktor Baker MD [address] [place] [address] PCP - General Family Practice 01/27/11 documented as of this encounter
--- OUTSIDE RECORDS SUMMARY | 2024-05-21 15:27 | XMS_ITS | Encounter Summary ---
Author Organization [facility] Address [address] [place] [address] Care Team Providers Care Senior Benefits Specialist Name Role Phone Viktor Baker MD Primary Care Provider [phone] Encounter Details Date Type Department Care Team (Latest Contact Info) Description 12/24/2006 Outpatient Historical [facility] Gastroenterology- [place] [address] [place] [address] Leonid Hope MD [address] [place] [address] Esophageal Stricture (Primary Dx); Dysphagia Social History Tobacco Use Types Packs/Day Years Used Date Smoking Tobacco: Never Assessed Comments Unknown Sex and Gender Information Value Date Recorded Sex Assigned at Not on file Legal Sex Female 3:13 AM SHANK ARCHER Gender Identity Not on file Sexual Orientation Not on file documented as of this encounter Plan of Treatment Not on file documented as of this encounter Visit Diagnoses Diagnosis Esophageal stricture- Primary Stricture and stenosis of esophagus Dysphagia documented in this encounter Care Teams Senior Benefits Specialist Relationship Specialty Start Date End Date Viktor Baker MD [address] [place] [address] PCP - General Family Practice 01/27/11 documented as of this encounter
--- OUTSIDE RECORDS SUMMARY | 2024-05-21 15:27 | XMS_ITS | Encounter Summary ---
Author Organization [facility] Address [address] [place] [address] Care Team Providers Care Cell Pourer Name Role Phone Viktor Baker MD Primary Care Provider [phone] Encounter Details Date Type Department Care Team (Latest Contact Info) Description 12/31/2006 Outpatient Historical [facility] Endoscopy [place] [address] [place] [address] Leonid Hope MD [address] [place] [address] Dysphagia, unspecified(787.20) (Primary Dx) Social History Tobacco Use Types Packs/Day Years Used Date Smoking Tobacco: Never Assessed Comments Unknown Sex and Gender Information Value Date Recorded Sex Assigned at Not on file Legal Sex Female 3:13 AM PEDIATRIC 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
--- OUTSIDE RECORDS SUMMARY | 2024-05-21 15:27 | XMS_ITS | Encounter Summary ---
Author Organization [facility] Address [address] [place] [address] Care Team Providers Care Sheet Metal Worker Helper Name Role Phone Viktor Baker MD Primary Care Provider [phone] Encounter Details Date Type Department Care Team (Late st Contact Info) Description 11/10/2019 Lab Requisition [facility] Laboratory Services [address] [place] [address] Meri Baker, JOYCE [address] [place] [phone] Social History Tobacco Use Types Packs/Day Years Used Date Smoking Tobacco: Never Smokeless Tobacco: Never Alcohol Use Standard Drinks/Week Comments No 0 (1 standard drink = 0.6 oz pur e alcohol) Comments No Sex and Gender Information Value Date Recorded Sex Assigned at Not on file Legal Sex Female 3:13 AM BEAM DYER RECESSED VAT Gender Identity Not on file Sexual Orientation Not on file Occupation Industry Job Start Date Job End Date Not on file Not on file Not on file Not on file documented as of this encounter Plan of Treatment Not on file documented as of this encounter Procedures Procedure Name Priority Date/Time Associated Diagnosis Comments SODIUM, RANDOM URINE Routine 11/09/2019 2:00 PM CDT OSMOLALITY, URINE Routine 11/09/2019 2:0 0 PM CDT documented in this encounter Results * OSMOLALITY, URINE (11/09/2019 2:00 PM CDT) OSMOLALITY, URINE 409 50-1,200 mOsm/kg 11/10/2019 2:[address] [facility] Urine URINE SPECIMEN OBTAINED BY CLEAN CATCH PROCEDURE / Unknown Collection / Unknown 11/09/2019 2:00 PM CDT 11/10/2019 2:[address] [facility] - 11/10/2019 2:52 PM CDT Reference range: 50-1200 mOsm/kg H2O, depending on fluid intake. us Meri COOK URINE ORDERABLES Final Result Performing Organization Address City/[facility]/ZIP Co de Phone Number [facility] [address] [place] [address] * SODIUM, RANDOM URINE (11/09/2019 2:00 PM CDT) [facility] Signature SODIUM, URINE 93 mmol/L 11/10/2019 2:[address] [facility] Comment:Reference range not established Urine URINE SPECIMEN OBTAINED BY CLEAN CATCH PROCEDURE / Unknown Collection / Unknown 11/09/2019 2:00 PM CDT 11/10/2019 2:20 PM CDT us Meri COOK URINE ORDERABLES Final Result Performing Organization Address [facility] Co de Phone Number [phone] [place] [address] documented in this encounter Visit Diagnoses Not on filedocumented in this encounter Care Teams Sheet Metal Worker Helper Relationship Specialty Start Date End Date Viktor Baker MD [address] [address] PCP - General Family Practice 01/27/11 documented as of this encounter
--- OUTSIDE RECORDS SUMMARY | 2024-05-21 15:27 | XMS_ITS | Encounter Summary ---
Author Organization [facility] Address [address] [place] [address] Care Team Providers Care Wood Borer Name Role Phone Viktor Baker MD Primary Care Provider [phone] Encounter Details Date Type Department Care Team (Latest Contact Info) Description 12/01/2007 Outpatient Historical [facility] Endoscopy [place] [address] [place] [address] Leonid Ulloa MD [address] [place] [address] Leonid Hope MD [address] [place] [address] Dysphagia; Other Chest Pain Social History Tobacco Use Types Packs/Day Years Used Date Smoking Tobacco: Never Assessed Comments Unknown Sex and Gender Information Value Date Recorded Sex Assigned at Not on file Legal Sex Female 3:13 AM 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
--- OUTSIDE RECORDS SUMMARY | 2024-05-21 15:27 | XMS_ITS | Encounter Summary ---
Author Organization [facility] Address [address] [place] [address] Care Team Providers Care Reverse Unit Operator Name Role Phone Viktor Baker MD Primary Care Provider [phone] Encounter Details Date Type Department Care Team (Latest Contact Info) Description 11/18/2006 Outpatient Historical [facility] N[facility] Th[facility] 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
--- OUTSIDE RECORDS SUMMARY | 2024-05-21 15:27 | XMS_ITS | Data Portability ---
Author Organization [facility] Levy Alejandro, [facility] Address [address] [facility] [address] [facility] [address] [place] [address] Care Team Providers Care Functional Tester Typewriters Name Role Phone VICTORIANO BAKER Primary Care Provider MANDIE Spaulding Canoe Inspector Final Assessment Encounter Date Assessment Date Assessment LastModified by Organization Details LastModified Time 02/09/2024 02/09/2024 I reviewed the patient's recent labs, vital signs, medications, and plan of care. I recommend no other change sat this time. [email or web address] Not available 03/08/2024 15:35:37 Plan of Treatment Reminders Order Date Submit Date Provider Last Modified By Organization Details Last Modified Time Details Appointments None record ed. Lab None record ed. Referral None record ed. Procedures None record ed. Surgeries None record ed. Imaging None record ed. Medication Orders None record ed. Patient TargetsNo targets recorded. Patient InstructionsNo instructions recorded. Reason for Referral None Reported. Problems Name Problem SNOMED Code Status Onset Date Resolution Date Notes Provider Name and Address Organization Details Recorded Time Chronic kidney disease stage 3A 009619438 Active 2023 Victoriano Baker MD [address] [place] [address], [id number] , [facility] 4 08:21:05 Congesti ve heart failure 73830271 Active [address] [facility] 4 12:27:30 Acute exacerba tion of chronic obstruct ruthann pulmonar y disease 224560193 Active [address] [facility] 4 12:33:57 Frail elderly 724205691 Active 2023 ROSALBA WILSON null, [facility] 4 12:20:27 Respirat ory distress 808710582 Active 2024 PATRICIA WARDGIRMA null, [facility] 5 17:15:48 Benign essentia l hyperten chanelle 8988045 Active 2022 Cheli Hortaobloch null, [facility] 3 10:39:01 Hypothyr oidism 95217613 Active 2022 Cheli Hortaobloch null, [facility] 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 3 10:39:50 Dementia 75256652 Active 2022 Cheli Kojo null, [facility] 3 10:40:02 Vascular dementia 298921275 Active 2022 Cheli Hortaobloch null, [facility] 3 10:40:21 Generali zed anxiety disorder 20484724 Active 2022 Cheli Kojo null, [facility] 3 10:54:58 Chronic depressi on 361970510 Active 2022 Cheli Kojo null, [facility] 3 10:55:28 Hyperlip idemia 28064531 Active 2022 Cheli Kojo null, [facility] 3 10:55:45 Osteoart hritis of knee 771252882 Active 2022 primary; allynevelina taylor Cheli Hortaobloch null, [facility] 3 10:56:36 Need for personal care assistan ce 03909390124 668217 Active 2022 Cheli Hortaobloch null, [facility] 3 10:57:01 Chronic obstruct ruthann pulmonar y disease 84155088 Active 2022 Cheli Kojo null, [facility] 3 10:57:16 Chronic diastoli c heart failure 925024079 Active 2022 Cheli Micheloch null, [facility] 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 3 11:02:04 Candidia sis of skin 67393843 Active 2022 PATRICIA SHOEMAKER null, [facility] 3 12:20:06 Clinical finding Completed 201512/06/2015 Obesity - Status is Inactive ; Recorded 12/06/19 16 7:21AM by Iris Hwang CMT, Annotati on/Adden dum; Promoted ; acuity set as *; Not Available [facility] 3 03:07:59 Idiopath ic osteoart hritis 812666562 Active 2022 PRIMARY OSTEOART HRITIS OF BOTH KNEES; Recorded 06/05/19 23 7:03AM by Patricia Shoemaker LPN, Office Visit; Promoted ; acuity set as *; Not Available [facility] 3 03:08:00 Esophagi tis 42114562 Completed 202106/28/2021 ESOPHAGI TIS - Status is Resolved ; Resolved Date: 06/29/19; Recorded 06/29/19 8:26AM by Meri Baker PA-C, Annotati on/Adden dum; Promoted ; acuity set as *; Not Available [facility] 3 03:08:00 Fracture of bone of hip region 697034997 Completed 202106/28/2021 HIP FRACTURE , RIGHT - Status is Resolved ; Resolved Date: 06/29/19; Recorded 06/29/19 8:26AM by Meri Baker PA-C, Annotati on/Adden dum; Promoted ; acuity set as *; Not Available [facility] 3 03:08:00 Anxiety state 997352724 Active 2022 ANXIETY; Recorded 06/05/19 23 7:03AM by Patricia Shoemaker LPN, Office Visit; Promoted ; acuity set as *; Not Available [facility] 3 03:08:00 Heartbur n 21747808 Completed 201512/06/2015 Heartbur n - Status is Inactive ; 12/06/19 16 7:21AM by Iris Hwang CMT, Tami on/Adden dum; Promoted ; acuity set as *; Not Available [facility] 3 03:08:00 Depressi ve disorder 93469694 Active 2022 DEPRESSI ON; Recorded 06/05/19 23 7:03AM by Patricia Shoemaker LPN, Office Visit; Promoted ; acuity set as *; Not Available [facility] 3 03:08:01 Constipa tion 17697549 Completed 201512/06/2015 Constipa tion - Status is Inactive ; 12/06/19 16 7:21AM by Iris Hwang CMT, Annotati on/Addslim dum; Promoted ; acuity set as *; Not Available [facility] 3 03:08:01 Problem Notes None recorded. Procedures Surgical History Date Name Laterality Status Provider Name and Address Organization Details Recorded Time open repair of ventral hernia completed [facility] 08/12/2022 09:06:14 open reduction of fracture of ankle with internal fixation completed [facility] 08/12/2022 09:06:53 total thyroidectomy completed [facility] 08/12/2022 09:07:06 Hysterectomy completed [facility] 08/12/2022 09:07:22 cholecystectomy completed [facility] 08/12/2022 09:08:21 Imaging Results None recorded. Procedure Notes None recorded. Medical Equipment None Reported. Allergies Allergen ID Allergen Name Allergen Category Reaction Reaction Severity Criticality Documentation Date Start Date Code Code System Note Provider Name and Address Organization Details Recorded Time 146 Sudafed medicatio n Not available Not available Not available 06/17/202259287 2 RxNorm chest press ure Cheli Micheloch [facility] 3 09:47:31 148 Substance with sulfonami de structure and antibacte rial mechanism of action (substanc e) medicatio n Not available Not available Not available 06/17/2022 64815 8003 SNOMED Cheli Hortaobloch [facility] 3 09:47:46 150 ibuprofen medicatio n Not available Not available Not available 06/17/2022 5640 RxNorm cauti on; CKD Cheli Varma [facility] 3 09:52:59 151 iodine medicatio n Not available Not available Not available 06/17/2022 5933 RxNorm Cheli Varma [facility] 3 09:54:31 45072 pseudoeph edrine hydrochlo ride medicatio n chest pain Not available Not available 10/25/2022 47659 RxNorm React ion: chest press ure; Comme nt: Recor ded 06/04 7:03A M by Gorge dhaliwal LPN, Offic e Visit ; Smita rod; Aashish frank ce: *; ; [facility] 3 13:19:28 Medications Name Sig Start Date Stop Date Status Note LastModified by Organization Details LastModified Time furosemid e 40 mg tablet active Not Available Not Available Not Available atorvasta tin 40 mg tablet at bedtime active Not Available Not Available No t Available buspirone 5 mg tablet 12/07 completed Not Available Not Available Not Available prednison e 10 mg tablet 04/12 completed Not Available Not Available Not Available doxycycli ne hyclate 100 mg capsule 10/14 completed Not Available Not Available Not Available ipratropi um 0.5 mg-albute rol 3 mg (2.5 mg base)/3 mL nebulizat ion soln active Not Available Not Available Not Available albuterol sulfate 2.5 mg/3 mL (0.083 %) solution for nebulizat ion four times daily 12/07 completed x 7 days; 0; Recorded 06/05/19 23 1:42PM by Patricia Shoemaker LPN, Office Visit; Not Available Not Available Not Available prednison e 20 mg tablet daily 04/12 completed Not Available Not Available Not Available clonazepa m 0.5 mg tablet 1 q am; 2 q hs active Not Available Not Available No t Available dexametha sone 6 mg tablet 03/10 completed Not Available Not Available Not Available sertralin e 100 mg tablet daily active Not Available Not Available Not Available clonazepa m 1 mg tablet Take 1 tablet every day by oral route at bedtime. 12/07 completed Not Available Not Available Not Available metolazon e 5 mg tablet 10/14 completed Not Available Not Available Not Available Diflucan 150 mg tablet Take 1 tablet every day by oral route as directed for 4 days. 10/14 completed Not Available Not Available Not Available potassium chloride ER 10 mEq tablet,ex tended release 04/14 completed Not Available Not Available Not Available omeprazol e 40 mg capsule,d elayed release two times daily 08/12 completed Not Available Not Available Not Available aspirin 81 mg tablet,de layed release active Not Available Not Available Not Available spironola ctone 25 mg tablet active Not Available Not Available No t Available Vitamin D3 10 mcg (400 unit) tablet active Not Available Not Available Not Available potassium chloride ER 20 mEq tablet,ex tended release(p art/cryst ) 04/14 completed Not Available Not Available Not Available lorazepam 0.5 mg tablet 1 twice daily prn active Not Available Not Available No t Available [employer] W[employer] Dressing paste 04/12 completed Not Available Not Available Not Available furosemid e 80 mg tablet 04/12 completed Not Available Not Available Not Available doxycycli ne monohydra te 100 mg capsule 12/07 completed Not Available Not Available Not Available nystatin 100,000 unit/gram topical cream active Not Available Not Available Not Available buspirone 10 mg tablet active Not Available Not Available Not Available omeprazol e 20 mg capsule,d elayed release 04/14 completed Not Available Not Available Not Available aspirin 81 mg chewable tablet 12/07 completed Not Available Not Available Not Available levothyro xine 200 mcg tablet active Not Available Not Available Not Available furosemid e 20 mg tablet 12/07 completed Not Available Not Available Not Available levofloxa ángela 500 mg tablet 10/14 completed Not Available Not Available Not Available levofloxa ángela 750 mg tablet 04/12 completed Not Available Not Available Not Available albuterol sulfate HFA 90 mcg/actua tion aerosol inhaler active Not Available Not Available Not Available cefdinir 300 mg capsule 12/07 completed Not Available Not Available Not Available doxycycli ne hyclate 100 mg tablet two times daily active Not Available Not Available No t Available ipratropi um bromide 0.02 % solution for inhalatio n 12/07 completed Not Available Not Available Not Available Laxative (bisacody l) 5 mg tablet,de layed release active Not Available Not Available Not Available Ventolin 90 mcg/actua tion aerosol inhaler four times daily 12/16 completed prn wheezing ; 436; Recorded 05/22/19 8:45AM by Patricia Shoemaker LPN (Authori zed through Victoriano Baker MD), Office Visit; Refill Quantity : 1; Inhalati on; Not Available Not Available Not Available Klor-Con M10 mEq tablet,ex tended release 04/14 completed Not Available Not Available Not Available metoprolo l tartrate 25 mg tablet two times daily active Not Available Not Available No t Available [facility] 100,000 unit/gram topical powder active Not Available Not Available Not Available melatonin at bedtime active 0; Recorded 06/05/19 1:42PM by Patricia Shoemaker LPN, Office Visit; Not Available Not Available Not Available calcium carbonate two times daily 12/16 completed 0; Recorded 06/05/19 1:42PM by Patricia Shoemaker LPN, Office Visit; Not Available Not Available Not Available lorazepam once daily prn severe anxiety 12/16 completed Recorded 04/23/19 1:07PM by Patricia Shoemaker LPN, Office Visit; Refill Quantity : 30; Tablet; Not Available Not Available Not Available folic acid daily 12/16 completed 436; Recorded 06/05/19 1:42PM by Patricia Shoemaker LPN (Authori zed through Victoriano Baker MD), Office Visit; Refill Quantity : 30; Tablet; Not Available Not Available Not Available furosemid e daily 12/16 completed increase to 60mg bid x 5 days then 60mg qd; 22574; Recorded 05/22/19 8:45AM by Patricia Shoemaker LPN (Authori zed through Meri Baker PA-C), Annotati on/Adden dum; Refill Quantity : 0; Not Available Not Available Not Available [facility] Levothyro xine Sodium daily 12/16 completed 436; Recorded 04/23/19 1:07PM by Patricia Shoemaker LPN (Authori zed through Victoriano Baekr MD), Office Visit; Refill Quantity : 0; Not Available Not Available Not Available Miralax two times daily 2019 active 1 capful BID in 6oz water. can increase or decrease dose as needed to keep bm's soft.; 436; Recorded 12/13/19 9:18AM by Rosalba Wilson LPN (Authori zed through Victoriano Baker MD), Office Visit; Refill Quantity : 1; Canister ; Not Available Not Available Not Available Potassium Chloride ER in the morning; 1 in the evening 12/16 completed 436; Recorded 06/05/19 1:42PM by Patricia Shoemaker LPN (Authori zed through Victoriano Baker MD), Office Visit; Refill Quantity : 30; Tablet; Not Available Not Available Not Available cholecalc iferol (vitamin D3) 1,250 mcg (50,000 unit) capsule 12/07 completed Not Available Not Available Not Available Calmosept ine 0.44 %-20.6 % topical ointment active Not Available Not Available Not Available Anoro Ellipta 62.5 mcg-25 mcg/actua tion powder for inhalatio n active Not Available Not Available Not Available Anoro Ellipta daily 12/16 completed 436; Recorded 08/11/19 4:49PM by Patricia Shoemaker LPN (Authori zed through Victoriano Baker MD), Office Visit; Refill Quantity : 1; Inhaler; Not Available Not Available Not Available Paxlovid 300 mg (150 mg x 2)-100 mg tablets in a dose pack 03/08 completed Not Available Not Available Not Available Paxlovid 150 mg-100 mg tablets in a dose pack (Renal Dose) 04/14 completed Not Available Not Available Not Available Vitals Date Recorded Body height Body mass index (BMI) Body weight Oxygen saturation Oxygen saturation in Arterial blood by Pulse oximetry Heart rate Respiratory rate Body temperature Systolic blood pressure Diastolic blood pressure Provider Name and Address Organization Details Last Updated DateTime 4 154.94 cm 38.9 kg/m2 65383.0 3 g 96 % 96 % 64 /min 16 /min 98.1 [degF] 139 mm[Hg] 63 mm[Hg] [facility] 4 09:15:44 Date Recorded Body height Provider Name an d Address Organization Details Last Updated DateTime 02/24/2024 154.94 cm [facility]RICIAUSC [facility] 02/24/2024 12:40:08 Date Recorded Body height Body mass index (BMI) Body weight Oxygen saturation Oxygen saturation in Arterial blood by Pulse oximetry Heart rate Respiratory rate Body temperature Systolic blood pressure Diastolic blood pressure Provider Name and Address Organization Details Last Updated DateTime 4 154.94 cm 37.4 kg/m2 66064.2 9 g 95 % 95 % 57 /min 16 /min 97.7 [degF] 109 mm[Hg] 63 mm[Hg] PATRICIAUSC [facility] 4 15:06:24 Date Recorded Body height Body mass index (BMI) Body weight Oxygen saturation Oxygen saturation in Arterial blood by Pulse oximetry Heart rate Respiratory rate Body temperature Systolic blood pressure Diastolic blood pressure Provider Name and Address Organization Details Last Updated DateTime 5 154.94 cm 37.4 kg/m2 03996.2 9 g 94 % 94 % 61 /min 17 /min 96.4 [degF] 108 mm[Hg] 49 mm[Hg] [facility] 5 12:01:24 Date Recorded Body height Body mass index (BMI) Body weight Oxygen saturation Oxygen saturation in Arterial blood by Pulse oximetry Heart rate Respiratory rate Body temperature Systolic blood pressure Diastolic blood pressure Provider Name and Address Organization Details Last Updated DateTime 5 154.94 cm 38.7 kg/m2 33915.4 4 g 88 % 88 % 64 /min 17 /min 97.6 [degF] 124 mm[Hg] 66 mm[Hg] [facility] 5 17:13:51 Social History Question Answer Notes LastModified by Organizat ion Details LastModified Time Tobacco Smoking Status Never Smoker ROSALBA STEVE felipe [facility] 08/12/2022 09:05:35 What Is Your Level Of Alcohol Consumption? None Information not available 08/12/2022 Do You Or Have You Ever Used Any Nicotine-free Cigarettes, Vape, Or Chewing Tobacco? No [email or web address] Information not available 04/12/2024 Do You Use Any Illicit Or Recreational Drugs? No [email or web address] Information not available 08/12/2022 Do You Or Have You Ever Used Any Other Forms Of Tobacco Or Nicotine? No [email or web address] Information not available 12/16/2022 Sex: Unknown Functional Status None recorded. Mental Status None recorded. Family History Relationship Description Onset Age of this Age Resolved Age Notes LastModified by Organization Details LastModified Time Mother Cerebrovascu lar accident [email or web address] Not available 13:21:49 Mother Type 2 diabetes mellitus [email or web address] Not available 12/16 13:21:57 Maternal Aunt Cerebrovascu lar accident Not available 13:22:07 Medical History No medical history recorded. Gynecological HistoryNo gynecological history recorded. Obstetrics History GPAL:G 0 P 0 0 0 0 Immunizations Vaccine Type Date Status Note Provider Nam e and Address Organization Details Recorded Time pneumococcal polysaccharide PPV23 4 completed [address] WILSON fel[address] [facility] 10/14/2022 08:43:02 Influenza, split virus, trivalent, preservative 0 completed Not Available [facility] 04/29/2023 11:50:33 Influenza, split virus, trivalent, preservative 0 completed Not Available [facility] 04/29/2023 11:50:33 Pneumococcal conjugate PCV 13 0 completed Not Available [facility] 04/29/2023 11:50:33 Past Encounters Encounter ID Performer Location Encounter Start Date Encounter Closed Date Diagnosis/Indication Diagnosis SNOMED-CT Code Diagnosis ICD10 Code Diagnosis Note [id number] Victoriano Baker MD [facility] [address] [place] [address] [id number] 06/17/2022 08:42:20 08/12/2022 15:51:54 Dementia 24248461 F03.90 Dyspnea 857740728 R06.02 [id number] Victoriano Baker MD [facility] [address] [place] [address] [id number] 5 08/06/2022 11:50:25 08/21/2022 14:13:41 Candidiasis of skin 08935372 B37.2 Acute exac erbation of chronic obstructive pulmonary disease 304399459 J44.1 Hospital i npatient stay within past 30 days 1843473633 106 Z76.89 [id number] Victoriano Baker MD [facility] [address] [place] [address] [id number] 5 08/12/2022 08:05:36 08/12/2022 19:28:13 Hypothyroidism 30109131 E03.9 Chronic ob structive pulmonary disease 47389967 J44.9 Benign ess ential hypertension 0329994 I10 Hyperlipidemia 24927327 E78.5 Vascular dementia 812017 004 F01.54 [id number] Victoriano Baker MD [facility] [address] [place] [address] [id number] 5 09/10/2022 14:39:38 09/22/2022 18:13:06 Cough 10825470 R05.9 CHEST XRAY,CBC/C MP/BNP/DUO NEBS QID X 7 DAYS,/DOXY CYCLINE 100MG BID X 7 DAYS, PREDNISONE 40MG QD X 5 DAYS,/ST EVAL Acute exac erbation of chronic obstructive pulmonary disease 541603949 J44.1 Major depr essive disorder 692361402 F32.9 Chronic di astolic heart failure 090795922 I50.32 Chronic ki dney disease stage 3A 586706556 N18.31 Dementia w ith behavioral disturbance 6270982882 103 F01.C11 ATIVAN .5MG QD PRN reinstated due increased aggitation and tearfulnes s. [id number] Victoriano Baker MD [facility] [address] [place] [address] [id number] 5 10/14/2022 08:16:13 10/14/2022 13:17:06 Chronic diastolic heart failure 350396202 I50.32 start aldactoned c potassiumm onitor bp Chronic ob structive pulmonary disease 05015939 J44.9 Generalize d anxiety disorder 40074099 F41.1 Hypothyroidism 70467420 E03.9 Dementia 25886594 F03.90 [id number] Victoriano Baker MD [facility] [address] [place] [address] [id number] 5 12/16/2022 07:54:20 12/23/2022 15:33:26 Essential hypertension 65955247 I10 Hypothyroidism 38671029 E03.9 Dementia 71240087 F03.90 [id number] Victoriano Baker MD [facility] [address] [place] [address] [id number] 5 02/10/2023 08:26:17 02/19/2023 07:49:37 COVID-19 780613198 U07.1 no focal deficits alert and at baselinest ateno signs ofrespirat ory compromise or dvt/pe. will continue to monitor [id number] Victoriano Baker MD [facility] [address] [place] [address] [id number] 5 04/14/2023 08:50:32 04/15/2023 16:47:02 Benign essential hypertension 4736481 I10 Chronic depression 77760 0009 F32.A Chronic di astolic heart failure 268802129 I50.32 start aldactoned c potassiumm onitor bp Chronic ob structive pulmonary disease 47857604 J44.9 Generalize d anxiety disorder 88352115 F41.1 Hyperlipidemia 28955652 E78.5 Hypothyroidism 47592004 E03.9 Need for p ersonal care assistance 0395186340 5230099 Z74.1 Vascular dementia 358180 004 F01.54 Hypertensi ve heart and renal disease with (congestive) heart failure 514026354 I13.0 Morbid obesity 447760655 E66.01 I reviewed the patient's recent labs, vital signs, medication s, and plan of care. I recommend no other change sat this time. Chronic ki dney disease stage 3A 968047222 N18.31 [id number] Victoriano Baker MD [facility] [address] [place] [address] [id number] 5 04/29/2023 11:50:03 05/13/2023 06:46:10 Candidiasis of skin 56884319 B37.2 INTERDRY SCHEDULE Vascular dementia 658310 004 F01.54 Chronic ob structive pulmonary disease 98794592 J44.9 NEB TREATMENTS BID [id number] Victoriano Baker MD [facility] [address] [place] [address] [id number] 06/03/2023 11:55:30 06/07/2023 20:20:04 Congestive heart failure 75990281 I50.9 lasix 40mg qd Pneumonia 500959334 J18. 9 right upper lobe, doxy, cefdinir, positive for MRSA per [facility] discharge [facility] Hospital i npatient stay within past 30 days 5126701109 106 Z76.89 [id number] Victoriano Baker MD [facility] [address] [place] [address] [id number] 5 06/05/2023 08:28:27 06/10/2023 14:24:30 Benign essential hypertension 3046614 I10 Chronic depression 53125 0009 F32.A Chronic di astolic heart failure 975668846 I50.32 Chronic ob structive pulmonary disease 35346507 J44.9 Generalize d anxiety disorder 56121058 F41.1 Hypothyroidism 46340198 E03.9 Community acquired pneumonia 086254675 J18.9 [id number] Victoriano Bkaer MD [facility] [address] [place] [address] [id number] 5 08/11/2023 08:48:30 08/11/2023 14:47:51 Benign essential hypertension 1455335 I10 Chronic depression 08317 0009 F32.A Chronic di astolic heart failure 922711969 I50.32 Chronic ob structive pulmonary disease 37808639 J44.9 Generalize d anxiety disorder 02117728 F41.1 Hypothyroidism 91440160 E03.9 Community acquired pneumonia 935245106 J18.9 [id number] Victoriano Baker MD [facility] [address] [place] [address] [id number] 5 08/19/2023 13:56:36 10/14/2023 12:01:01 Congestive heart failure 31685723 I50.9 lasix 40mg today IM x1CBC/CMP/ BNP/CHEST XRAY Chronic ob structive pulmonary disease 36115535 J44.9 DUO NEB TREATMENTS QIDD, PREDNISONE 40MG QD X 5 DAYS [id number] Victoriano Baker MD [facility] ([facility] [address] [place], [place] [phone] 5 08/26/2023 12:22:25 10/14/2023 12:22:16 Acute exacerbation of chronic obstructive pulmonary disease 287644268 J44.1 STABLE CONTINUE WITH NEBS [id number] MERI BAKER PA-C [facility] ([facility]) [address] [place] [address] [phone] 5 09/30/2023 14:25:52 10/15/2023 15:21:43 Post-discharge follow-up [id number] Z09 medical records and meds reviewed. Congestive heart failure 87597446 I50.9 exacerbati on increase lasix to 80mg x 3 days [id number] Victoriano Baker MD [facility] ([facility]) [address] [place] [address] 74632-850 5 10/06/2023 08:13:56 10/14/2023 14:29:01 Generalized anxiety disorder 16938825 F41.1 Chronic ob structive pulmonary disease 15133949 J44.9 Vascular dementia 122219 004 F01.54 [id number] Victoriano Baker MD [facility] ([facility]) [address] [place] [address] [phone] 5 12/08/2023 08:40:34 12/09/2023 14:49:49 Benign essential hypertension 4581932 I10 Chronic di astolic heart failure 787277309 I50.32 Chronic ob structive pulmonary disease 22896513 J44.9 Generalize d anxiety disorder 68171899 F41.1 Hypothyroidism 56938192 E03.9 Frail elderly 385744099 R54 Dependence on supplemental oxygen 0533369298 07 Z99.81 [id number] Victoriano Baker MD [facility] ([facility]) [address] [place] [address] [phone] 5 12/23/2023 13:25:02 02/01/2024 10:05:58 Abdominal pain 77777449 R10.9 pain is resolved for now. Will continue to monitor vitals and symptoms [id number] Victoriano Baker MD [facility] ([facility]) [address] [place] [address] [phone] 5 02/09/2024 08:15:27 03/09/2024 08:11:35 Benign essential hypertension 5508500 I10 Chronic di astolic heart failure 266635671 I50.32 Chronic ob structive pulmonary disease 44368757 J44.9 Hypothyroidism 66224274 E03.9 Vascular dementia 495044 004 F01.54 [id number] Victoriano Baker MD [facility] ([facility]) [address] [place] [address] [phone] 5 02/24/2024 12:21:18 03/09/2024 09:14:33 Acute exacerbation of chronic obstructive pulmonary disease 806009858 J44.1 taper Prednisone 30mg x 3 days, 20mg x 3 days,10mg x 3 dayswill finish doxycyclin e in 2 days. Her edema is resolved. back to her maintance dose of lasix.CXR and labs reviewed. [id number] Victoriano Baker MD [facility] ([facility]) [address] [place] [address] [phone] 5 03/16/2024 15:05:22 04/22/2024 15:59:09 Acute exacerbation of chronic obstructive pulmonary disease 240493193 J44.1 Her edema is resolved. back to her maintance dose of lasix.CXR and labs reviewed. levaquin 750mg qd x 5 days [id number] Victoriano Baker MD [facility]) [address] [place] [address] [phone] 5 04/12/2024 08:53:16 04/15/2024 15:54:59 Benign essential hypertension 8428456 I10 Chronic depression 75221 0009 F32.A Chronic di astolic heart failure 735465567 I50.32 Chronic ob structive pulmonary disease 52766607 J44.9 Dementia 57248776 F03.90 Generalize d anxiety disorder 32452698 F41.1 Hyperlipidemia 16352717 E78.5 Need for p ersonal care assistance [id number] 9064523 Z74.1 Vascular dementia 038805 004 F01.54 Health Concerns Section Related Observation LastModified by Organization Detai ls LastModified Time None Recorded Concern Status LastModified by Organization Details LastModified Time None Recorded Advance Directives Directive None Recorded Payers Encounter Date Sequence Insurance Name Policy Number Policy Castro Covered Member ID Castro Member ID Guarantor Name 02/09/2024 2 [place] Michelleevelina Becerra [id number] Michelletoby Becerra 02/09/2024 1 [place] [id number] Michelle Maren Becerra [id number] Michelletoby Becerra 02/24/2024 2 [place] Michelleevelina Becerra [id number] Michelletoby Becerra 02/24/2024 1 [place] [id number] Michelle Maren Becerra [id number] Michelletoby Becerra 03/16/2024 2 [place] Michelleevelina Becerra [id number] Michelletoby Becerra 03/16/2024 1 [place] [id number] Michelle Maren Becerra [id number] Michelletoby Becerra 04/12/2024 2 [place] Michelle Maren Becerra [id number] Michelletoby Becerra 04/12/2024 1 [place] [id number] Michelle Maren Becerra [id number] Michelletoby Becerra Notes Date Note Type Note Provider Name and Address Organization Details Recorded Time text/html DementiaReported bypatient.Quality:short term memory loss; inability to learn or remember new information; forgetting names or everyday words; difficulty communicating; disorientation to place; disorientation to time Severity:severe Duration:years Onset/Timing:insidious Context:no alcohol use Associated Symptoms:anxietyNotes:anxie ty is generally better she still has spells of wanting to go homeGeneralized Anxiety DisorderReported bypatient.Onset/Timing:year s Severity:severe Alleviating Factors:psychotropic medication; relaxation techniquesHypertension IM/FMReported bypatient.Duration:HTN present for years Onset/Timing:gradual onset Alleviating Factors:medication Self Care:non-smokerHypothyroidR eported bypatient.Duration:>12 months Treatment:taking medication as prescribedNotes:she reports she is anxious currently, because i am here. Patient seen today by Dr. Baker at [facility] Victoriano Baker MD [address] [place], [address], [facility] 03/08/2024 15:36:17 4 text/html COPDReported bypatient.Onset/Timing:mult iple times per day Duration:chronic; has noted for years Severity:moderate Alleviating factors:relieved with rest Aggravating factors:worse with exertion Associated Symptoms:depression;anxiety ;chest tightness has been on Doxy, prednisone 40mg x 5 days and an increase in her lasix dose for 5 days.Staff states she is better. Still tight and wheezy at times but responds to her neb tx.Vitals are stable without fever and maintaining O2 Victoriano Baker MD [address] [place] [address], [phone], [facility] 03/08/2024 16:00:42 4 text/html Upper Respiratory SymptomsReported bypatient.Location:chest Quality:productive cough;congested Severity:moderate Duration:symptoms lasting less than 2 weeks Onset/Timing:sudden Context:no foreign travel; non-smoker Alleviating Factors:analgesics; antihistamines Associated Symptoms:chest pain staff thinks she is better but still not quite over her bronchitis. Victoriano Baker MD [address] [place] [address], [phone], [facility] 04/21/2024 15:32:15 5 text/html DementiaReported bypatient.Quality:short term memory loss; inability to learn or remember new information; forgetting names or everyday words; difficulty communicating; disorientation to place; disorientation to time Severity:severe Duration:years Onset/Timing:insidious Context:no alcohol use Associated Symptoms:anxietyNotes:anxie ty is generally better sGeneralized Anxiety DisorderReported bypatient.Onset/Timing:year s Severity:severe Alleviating Factors:psychotropic medication; relaxation techniquesHypertension IM/FMReported bypatient.Duration:HTN present for years Onset/Timing:gradual onset Alleviating Factors:medication Self Care:non-smokerHypothyroidR eported bypatient.Duration:>12 months Treatment:taking medication as prescribedNotes:she reports she is not anxious at this time Patient seen today by Dr. Baker at [facility] Victoriano Baker MD [address] [place] [address], [phone], [facility] [place] 04/13/2024 08:12:22 OBGyn Episode No OBEpisode recorded.
--- OUTSIDE RECORDS SUMMARY | 2024-05-21 15:28 | XMS_ITS | Encounter Summary ---
Author Organization [facility] Address [address] [place] [address] Care Team Providers Care Primer Powder Blender Wet Name Role Phone Viktor Baker MD Primary Care Provider [phone] Encounter Details Date Type Department Care Team (Latest Contact Info) Description 03/06/2004 Outpatient Historical [facility] Endoscopy [place] [address] [place] [address] Leonid Hope MD [address] [place] [address] SCREENING MAL NEOP-COLON (Primary Dx) Social History Tobacco Use Types Packs/Day Years Used Date Smoking Tobacco: Never Assessed Comments Unknown Sex and Gender Information Value Date Recorded Sex Assigned at Not on file Legal 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 [place] [address] PCP - General Family Practice 01/27/11 documented as of this encounter
--- OUTSIDE RECORDS SUMMARY | 2024-05-21 15:28 | XMS_ITS | Encounter Summary ---
Author Organization [facility] Address [address] [place] [address] Care Team Providers Care Recording Studio Internship Name Role Phone Viktor Baker MD Primary Care Provider Encounter Details Date Type Department Care Team (Latest Contact Info) Description 07/07/2005 Outpatient Historical [facility] Gastroenterology- [place] 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
--- OUTSIDE RECORDS SUMMARY | 2024-05-21 15:28 | XMS_ITS | Encounter Summary ---
Author Organization [facility] Address [address] [place] [address] Care Team Providers Care Scale Assembly Set Up Worker Name Role Phone Viktor Baker MD Primary Care Provider [phone] Encounter Details Date Type Department Care Team (Latest Contact Info) Description 10/08/2006 Outpatient Historical [facility] Cardiac Associate Merchandiser [address] [place] [address] Davy Monson MD [address] [address] Coronary Atherosclerosis of [place] Coronary Artery (Primary Dx) Social History Tobacco Use Types Packs/Day Years Used Date Smoking Tobacco: Never Assessed Comments Unknown Sex and Gender Information Value Date Recorded Sex Assigned at Not on file Legal 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 Female 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 Gender Identity Not on file Sexual Orientation Not on file documented as of this encounter Plan of Treatment Not on file documented as of this encounter Procedures Procedure Name Priority Date/Time Associated Diagnosis Comments LIPID PANEL Routine 10/08/2006 8:35 AM CDT PT AND APTT Routine 10/08/2006 6:57 AM CDT CBC WITHOUT DIFFERENTIAL Routine 10/08/2006 6:57 AM CDT COMPREHENSIVE METABOLIC PANEL Routine 10/08/2006 6:57 AM CDT documented in this encounter Results * (ABNORMAL) LIPID PANEL (10/08/2006 8:35 AM CDT) CHOLESTEROL 147 75 - 200 mg/dL INTERFACE SYSTEM HDL 39(L) 40 - 60 mg/dL INTERFACE SYSTEM TRIGLYCERIDE 186 0 - 200 mg/dL INTERFACE SYSTEM CALCULATED LDL CHOLESTEROL 71 0 - 130 mg/dL INTERFACE SYSTEM CALCULATED TOTAL CHOLESTEROL TO HDL RATIO 3.77 3.27 - 4.44 INTERFACE SYSTEM 10/08/2006 8:35 AM CDT Davy Monson MD CHEMISTRY ORDERABLES Edited Performing Organization Address [facility] Phone Number INTERFACE SYSTEM Refer to clinic/hospital department * COMPREHENSIVE METABOLIC PANEL (10/08/2006 6:57 AM CDT) GLUCOSE 92 70 - 110 mg/dL INTERFACE SYSTEM BUN 17 7 - 17 mg/dL INTERFACE SYSTEM CREATININE 1.1 0.7 - 1.2 mg/dL INTERFACE SYSTEM SODIUM 140 136 - 145 mEq/L INTERFACE SYSTEM POTASSIUM 4.2 3.5 - 5.0 mEq/L INTERFACE SYSTEM CHLORIDE 105 95 - 110 mEq/L INTERFACE SYSTEM CO2 29 22 - 32 mmol/l INTERFACE SYSTEM CALCIUM 9.7 8.4 - 10.5 mg/dL INTERFACE SYSTEM TOTAL PROTEIN 6.8 6.3 - 8.2 g/dL INTERFACE SYSTEM ALBUMIN 4.1 3.5 - 5.0 g/dL INTERFACE SYSTEM ALKALINE PHOSPHATASE 61 25 - 100 U/L INTERFACE SYSTEM AST 20 8 - 33 U/L INTERFACE SYSTEM ALT 17 4 - 36 IU/L INTERFACE SYSTEM BILIRUBIN TOTAL 1.0 0.3 - 1.2 mg/dL INTERFACE SYSTEM GLOBULIN (CALC) 2.7 2.4 - 3.9 g/dL INTERFACE SYSTEM ALBUMIN/GLOBULIN RATIO 1.5 1.0 - 2.3 INTERFACE SYSTEM ANION GAP 10 9 - 20 mEq/L INTERFACE SYSTEM OSMOLALITY, CALCULATED 289 275 - 295 mOsm/Kg INTERFACE SYSTEM 10/08/2006 6:57 AM CDT Davy Monson MD CHEMISTRY ORDERABLES Edited Performing Organization Address [facility] de Phone Number INTERFACE SYSTEM Refer to clinic/hospital department * PT AND APTT (10/08/2006 6:57 AM CDT) PROTIME 14.7 13.0 - 15.7 Secs INTERFACE SYSTEM Comment: As of 06 note change in normal range. INR 1.0 INTERFACE SYSTEM Comment: Expected Values for INR: DVT/PE ?Goal INR 2.5; range 2.0 - 3.0 Valve Replacement ? Tissue ? Goal INR 2.5; range 2.0 - 3.0 ? Mechanical ? Goal INR 3.0; range 2.5 - 3.5 POST-OH ? Goal INR 2.5; range 2.0 - 3.0 or Goal 3.0; range 2.5 - 3.5 Atrial Fibrillation ? Goal INR 2.5; range 2.0 - 3.0 Ischemic Stroke ? Goal INR 2.5; range 2.0 - 3.0 For additional information see Guidelines for Anticoagulation available from the pharmacy Michelle Ureña Pharm D. ?? PTT 28.2 21.6 - 35.6 Secs INTERFACE SYSTEM Comment: Therapeutic Range: ?? Hi-level PE/DVT heparin protocol 80.1 -95.0 ??sec ? Lo-level PE/DVT ??heparin protocol ??67.1 - ??80.0 sec ?? Cardiac Heparin Protocol 67.1 - 85.0 sec ?? Neuro Heparin Protocol 67.1 - 80.0 sec As of 03/05/2006 note change in APTT Normal Range. 10/08/2006 6:57 AM CDT us Davy Monson MD HEMATOLOGY ORDERABLES Edited INTERFACE SYSTEM Refer to clinic/hospital department * (ABNORMAL) CBC WITHOUT DIFFERENTIAL (10/08/2006 6:57 AM CDT) WBC 5.0 4.8 - 10.8 K/ul INTERFACE SYSTEM RBC 4.75 4.20 - 5.40 Mil/ul INTERFACE SYSTEM HEMOGLOBIN 12.9 12.0 - 16.0 g/dL INTERFACE SYSTEM HEMATOCRIT 39.7 36.0 - 46.0 % INTERFACE SYSTEM MCV 83.6(L) 84.0 - 103.0 Fl INTERFACE SYSTEM MCH 27.2 27.0 - 34.0 pg INTERFACE SYSTEM MCHC 32.5 30.0 - 35.0 g/dL INTERFACE SYSTEM RDW 15.7(H) 11.0 - 14.5 % INTERFACE SYSTEM PLATELETS 173 140 - 440 K/ul INTERFACE SYSTEM MPV 11.3 8.9 - 12.8 Fl INTERFACE SYSTEM NEUTROPHILS 74.0 42.2 - 75.2 % INTERFACE SYSTEM LYMPHOCYTES 17.2(L) 24.0 - 44.0 % INTERFACE SYSTEM MONOCYTES 7.4 2.0 - 10.0 % INTERFACE SYSTEM EOSINOPHILS 1.2 0.0 - 7.0 % INTERFACE SYSTEM BASOPHILS 0.2 0.0 - 1.0 % INTERFACE SYSTEM NEUTROPHIL ABSOLUTE 3.7 2.0 - 8.0 K/ul INTERFACE SYSTEM LYMPHOCYTE ABSOLUTE 0.9(L) 1.2 - 4.0 K/ul INTERFACE SYSTEM MONOCYTE ABSOLUTE 0.4 0.1 - 0.6 K/ul INTERFACE SYSTEM EOSINOPHIL ABSOLUTE 0.1 0.0 - 0.7 K/ul INTERFACE SYSTEM BASOPHILS ABSOLUTE 0.0 0.0 - 0.2 K/ul INTERFACE SYSTEM 10/08/2006 6:57 AM CDT us Davy Monson MD HEMATOLOGY ORDERABLES Edited INTERFACE SYSTEM Refer to clinic/hospital department documented in this encounter Visit Diagnoses Diagnosis Coronary atherosclerosis of [place] coronary artery- Primary documented in this encounter Care Teams Scale Assembly Set Up Worker Relationship Specialty Start Date End Date Viktor Baker MD [address] [place] [phone] PCP - General Family Practice 01/27/11 documented as of this encounter
--- OUTSIDE RECORDS SUMMARY | 2024-05-21 15:28 | XMS_ITS | Encounter Summary ---
Author Organization [facility] Address [address] [place] [address] Care Team Providers Care Predictive Maintenance Specialist Name Role Phone Viktor Baker MD Primary Care Provider [phone] Encounter Details Date Type Department Care Team (Latest Contact Info) Description 03/06/2004 Outpatient Historical [facility] Gastroenterology- [place] 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
--- OUTSIDE RECORDS SUMMARY | 2024-05-21 15:28 | XMS_ITS | Encounter Summary ---
Author Organization [facility] Address [address] [place] [address] Care Team Providers Care Cement Storage Worker Name Role Phone Viktor Baker MD Primary Care Provider [phone] Encounter Details Date Type Department Care Team (Latest Contact Info) Description 07/07/2005 Outpatient Historical [facility] Endoscopy [place] [address] [place] [address] Leonid Hope MD [address] [place] [address] Dysphagia (Primary Dx) Social History Tobacco Use Types Packs/Day Years Used Date Smoking Tobacco: Never Assessed Comments Unknown Sex and Gender Information Value Date Recorded Sex Assigned at Not on file Legal Sex Female 3:13 AM RN CIRCULATING Gender Identity Not on file Sexual Orientation Not on file documented as of this encounter Plan of Treatment Not on file documented as of this encounter Visit Diagnoses Diagnosis Dysphagia- Primary documented in this encounter Care Teams Cement Storage Worker Relationship Specialty Start Date End Date Viktor Baker MD [address] [place] [phone] PCP - General Family Practice 01/27/11 documented as of this encounter
--- OUTSIDE RECORDS SUMMARY | 2024-05-21 15:28 | XMS_ITS | Encounter Summary ---
Author Organization [facility] Address [address] [place] [address] Care Team Providers Care Volcanology Professor Name Role Phone Viktor Baker MD Primary Care Provider [phone] Encounter Details Date Type Department Care Team (Latest Contact Info) Description 09/29/2006 Outpatient Historical [facility] Cardiology- [place] [address] [place] [address] Davy Monson MD [address] [place] [address] Unspecified Hypertensive Heart Disease with Heart Failure (CMS/HCC) (Primary Dx); Other and Unspecified Angina Pectoris; DM w/o Complication Type II (CMS/HCC); Pure Hypercholesterolem Social History Tobacco Use Types Packs/Day Years Used Date Smoking Tobacco: Never Assessed Comments Unknown Sex and Gender Information Value Date Recorded Sex Assigned at Not on file Legal Sex Female 3:13 AM MANAGER E COMMERCE Gender Identity Not on file Sexual Orientation Not on file documented as of this encounter Plan of Treatment Not on file documented as of this encounter Visit Diagnoses Diagnosis Unspecified hypertensive heart disease with heart failure(402.91) (CMS/HCC)- Primary Unspecified hypertensive heart disease with heart failure Other and unspecified angina pectoris Type II or unspecified type diabetes mellitus without mention of complication, not stated as uncontrolled (CMS/HCC) Type II or unspecified type diabetes mellitus without mention of complication, not stated as uncontrolled Pure hypercholesterolem Pure hypercholesterolemia documented in this encounter Care Teams Volcanology Professor Relationship Specialty Start Date End Date Viktor Baker MD [address] [place] [address] PCP - General Family Practice 01/27/11 documented as of this encounter
--- NOTE | 2024-05-21 16:41 | P.PN_ITS ---
Subjective 2 Subjective: Patient was seen this morning, currently sitting in her wheelchair, on BiPAP, on 36% FiO2 she is alert to person, to place, not to time, she follows commands, patient's is at bedside, she tells me she is feeling better she is breathing better, denies any chest pain, no palpitations, no lightheadedness, dizziness, discussed her pneumonia, influenza A positivity her respiratory failure we discussed her overall goals of care, discussed her DNR on file with her at bedside, after detailed discussion regarding goals of care, patient would like to be a full code she understands what a full code is, is at bedside he wants to go along with her wishes we will change her CODE STATUS to full code Vitals/I&O/Wt Last Vital Signs Temp 98.2 F 05/20/24 15:49 Pulse 85 05/21/24 16:29 Resp 28 H 05/21/24 16:29 BP 135/61 05/21/24 16:00 Pulse Ox 95 05/21/24 16:29 O2 Del Method BiPAP 05/21/24 16:29 O2 Flow Rate 40 05/20/24 16:49 FiO2 36 05/21/24 16:29 05/21/24 05/21/24 05/21/24 06:59 14:59 22:59 Intake Total 355 / 355 Balance 355 / 355 Weight last 48 hrs Weight 90.718 kg Physical Exam 2 Const: COMMON NORMALS: no acute distress and patient oriented x3 Resp: COMMON NORMALS: normal respiratory effort, No retractions and No use of accessory muscles AUSCULTATION: crackles and wheezes Cardio: COMMON NORMALS: regular rate, regular rhythm, S1 normal heart sound present and S2 normal heart sound present RATE: regular rate RHYTHM: r egular rhythm HEART SOUNDS: S1 normal heart sound present and S2 normal heart sound present GI: COMMON NORMALS: Normal to inspection, nondistended, normoactive bowel sounds present and non-tender Extremity: COMMON NORMALS: no pedal edema Neuro: COMMON NORMALS: patient oriented x3 Psych: COMMON NORMALS: mental status grossly normal Urinary Catheter Management: Mann: Cath Placed During This Visit: yes Urinary Catheter Date of Insertion: 05/21/24 Urinary Catheter Time of Insertion: 02:00 Data 05/21/24 04:26 02/22/25 04:26 Micro: Microbiology 05/20/24 18:30 Blood Culture - Preliminary Blood SPECIMEN COLLECTED 05/20/24 18:25 Blood Culture - Preliminary Blood SPECIMEN COLLECTED A&P Assessment and plan (1) Acute respiratory failure with hypoxia: (2) COPD with acute exacerbation: (3) Influenza A: (4) Secondary bacterial pneumonia: (5) Acute metabolic encephalopathy: (6) Sepsis: (7) Diastolic CHF: Plan Acute metabolic and toxic encephalopathy -With underlying dementia -Secondary to influenza, sepsis, hypoxia - neurochecks, monitor mentation closely Sepsis -Sepsis features met given tachycardia, tachypnea, influenza, DELLA, evidence of respiratory distress, respiratory failure Acute hypoxic respiratory failure -Multifactorial -Secondary to influenza A -Secondary bacterial pneumonia -Diastolic CHF exacerbation -COPD exacerbation Plan ?Monitor respiratory status closely -Currently on BiPAP 40% -Patient is much more alert awake, can moved to medical floors -Tamiflu -Isolation precautions -Vancomycin -Cefepime -Lasix 40 IV mg daily -Monitor creatinine monitor urine output -Continue Decadron -Continue DuoNeb, budesonide Acute kidney injury, monitor creatinine COPD History of diastolic CHF Plan for today continue IV antibiotics continue IV diuresis, moved to medical floors PDMP PDMP Reviewed: Not Reviewed Attestations 2 Medical Necessity Statement*: Patient requires hospitalization for acute hypoxic respiratory failure send influenza A, bacterial pneumonia, diastolic CHF Diagnoses Acute respiratory failure with hypoxia J96.01 COPD with acute exacerbation J44.1 Influenza A J10.1 Secondary bacterial pneumonia J15.9 Acute metabolic encephalopathy G93.41 Sepsis A41.9 Diastolic CHF I50.30
[2024-05-21] MEDS: enoxaparin 40 mg/0.4 mL Syringe SUBCUT (18:18)
[2024-05-21] MEDS: dexamethasone 10 mg/mL INJ IVP (18:18)
[2024-05-21] MEDS: pantoprazole 40 mg SDV IVP (18:18)
[2024-05-21] MEDS: atorvastatin 40 mg Tablet PO (20:20)
[2024-05-21] MEDS: budesonide 0.5 mg/2 mL Neb INHALATION (21:51)
[2024-05-22] VITALS (17 sets, daily range): BP systolic 110–180; BP diastolic 50–123; PULSE 64–98; RESP 15–22; TEMP 36.4–36.9; O2SAT 95–100
[2024-05-22 04:27] LABS: Basophils % 0.2 %; Lymphocytes # 0.2 10^3/uL (0.8-4.8); Lymphocytes % 3.2 %; Mean Corpuscular HGB Conc 29.4 g/dL (30-55); Mean Corpuscular Hemoglobin 25.4 pg (27-33); Mean Corpuscular Volume 86.5 fl (85-98); Mean Platelet Volume 10.1 fL (7.4-10.4); Monocytes # 0.2 10^3/uL (0.2-0.9); Monocytes % 3.1 %; Neutrophils # 5.49 10^3/uL (1.8-7.7); Neutrophils % 93.2 %; Nucleated Red Blood Cells % 0 %; Platelet Count 181 10^3/cmm (157-399); Red Cell Distribution Width 16.8 % (12.1-15.1); White Blood Count 5.89 10^3/uL (3.29-11.43)
[2024-05-22 04:41] LABS: INR 1.04 (0.8-1.2)
[2024-05-22 04:42] LABS: Partial Thromboplastin Time 32.4 SECONDS (23.9-36.7)
[2024-05-22 04:54] LABS: Alanine Aminotransferase < 5 U/L (0-33); Albumin Level 3.4 g/dL (3.5-5.2); Alkaline Phosphatase 82 U/L (35-105); Anion Gap 16.2 (5-19); Aspartate Amino Transferase 11 U/L (0-32); Blood Urea Nitrogen 31 mg/dL (8-23); Calcium 6.9 mg/dL (8.5-10.5); Carbon Dioxide 27 mmol/L (22-29); Chloride 101 mmol/L (98-107); Creatinine Clr Calc Pharmacy 40.5986; Glucose 158 mg/dL (65-115); Magnesium 1.9 mg/dL (1.7-2.3); Osmolality Calculated 300 mOsm/kg (285-295); Phosphorus 4.3 mg/dL (2.5-4.5); Potassium 4.2 mmol/L (3.5-5.1); Sodium 140 mmol/L (136-145); Total Bilirubin 0.4 mg/dL (0.15-1.2); Total Protein 6.4 g/dL (6.6-8.7)
[2024-05-22 05:01] LABS: NT Pro B Type Natriuretic Pept 1280 pg/mL (0-450)
[2024-05-22] MEDS: levothyroxine 200 mcg Tablet PO (05:10)
[2024-05-22] MEDS: aspirin 81 mg EC Tablet PO (06:10)
[2024-05-22] MEDS: sertraline 100 mg Tablet 200 MG PO (06:10)
[2024-05-22] MEDS: spironolactone 25 mg Tablet 12.5 MG PO (06:10)
[2024-05-22] MEDS: oseltamivir phosphate 30 mg Capsule PO ×2 (08:29→17:18)
[2024-05-22] MEDS: cefepime 1,000 mg SDV 1000 MG IVP ×2 (08:29→20:16)
[2024-05-22] MEDS: BuSPIRONE 10 mg Tablet PO ×2 (08:29→17:18)
[2024-05-22] MEDS: ipratropium-albuterol 3 mL Neb INHALATION ×4 (08:39→19:49)
[2024-05-22] MEDS: budesonide 0.5 mg/2 mL Neb INHALATION ×2 (08:39→19:48)
[2024-05-22] MEDS: VANCOMYCIN ADD-Vantage 750 MG in 0.9% NaCl ADD-Vantage 250 ML 250 MG IV (10:15)
[2024-05-22] MEDS: enoxaparin 40 mg/0.4 mL Syringe SUBCUT (17:19)
[2024-05-22] MEDS: dexamethasone 10 mg/mL INJ IVP (17:19)
[2024-05-22] MEDS: pantoprazole 40 mg SDV IVP (17:19)
--- NOTE | 2024-05-22 17:29 | P.PN_ITS ---
Subjective 2 Subjective: Patient was seen this morning, she is alert awake, following all commands is at bedside she tells me she is breathing better this morning, does report swelling of her legs, Vitals/I&O/Wt Last Vital Signs Temp 98.0 F 05/22/24 12:00 Pulse 76 05/22/24 15:26 Resp 20 H 05/22/24 15:18 BP 125/67 05/22/24 12:00 Pulse Ox 98 05/22/24 15:18 O2 Del Method Nasal Cannula 05/22/24 15:18 O2 Flow Rate 3 05/22/24 15:18 FiO2 36 05/22/24 04:40 05/22/24 05/22/24 05/22/24 06:59 14:59 22:59 Intake Total 250 / 250 Output Total 800 / 800 Balance -800 / -195 250 / 250 Weight last 48 hrs Weight 96.524 kg Weight 96.797 kg Physical Exam 2 Const: COMMON NORMALS: no acute distress and patient oriented x3 Resp: COMMON NORMALS: normal respiratory effort, No retractions and No use of accessory muscles AUSCULTATION: crackles and wheezes Cardio: COMMON NORMALS: regular rate, regular rhythm, S1 normal heart sound present and S2 normal heart sound present RATE: regular rate RHYTHM: r egular rhythm HEART SOUNDS: S1 normal heart sound present and S2 normal heart sound present GI: COMMON NORMALS: Normal to inspection, nondistended, normoactive bowel sounds present and non-tender Extremity: NARRATIVE EXTREMITY EXAM: 1+ edema Neuro: COMMON NORMALS: patient oriented x3 Psych: COMMON NORMALS: mental status grossly normal Urinary Catheter Management: Mann: Cath Placed During This Visit: yes Reason for Continuing Indwelling Catheter: Acute Urinary Retention or Obstruction Urinary Catheter Date of Insertion: 05/21/24 Urinary Catheter Time of Insertion: 02:00 Data 05/22/24 03:50 05/22/24 03:50 Micro: Microbiology 05/20/24 18:30 Blood Culture - Preliminary Blood NEGATIVE TO DATE 05/20/24 18:25 Blood Culture - Preliminary Blood NEGATIVE TO DATE A&P Assessment and plan (1) Acute respiratory failure with hypoxia: (2) COPD with acute exacerbation: (3) Influenza A: (4) Secondary bacterial pneumonia: (5) Acute metabolic encephalopathy: (6) Sepsis: (7) Diastolic CHF: Plan Acute metabolic and toxic encephalopathy, resolving -With underlying dementia -Secondary to influenza, sepsis, hypoxia - neurochecks, monitor mentation closely Sepsis, resolving -Sepsis features met given tachycardia, tachypnea, influenza, DELLA, evidence of respiratory distress, respiratory failure Acute hypoxic respiratory failure -Multifactorial -Secondary to influenza A -Secondary bacterial pneumonia -Diastolic CHF exacerbation -COPD exacerbation Plan ?Monitor respiratory status closely -Currently on BiPAP 40% -Patient is much more alert awake, can moved to medical floors -Tamiflu -Isolation precautions -Vancomycin -Cefepime -Lasix 40 IV mg daily -Monitor creatinine monitor urine output -Continue Decadron -Continue DuoNeb, budesonide Acute kidney injury, monitor creatinine COPD History of diastolic CHF Plan for today continue IV antibiotics continue IV diuresis, monitor respiratory status PDMP PDMP Reviewed: Not Reviewed Attestations 2 Medical Necessity Statement*: Patient requires hospitalization for acute hypoxic respiratory failure, DELLA, CHF, encephalopathy, CHF Diagnoses Acute respiratory failure with hypoxia J96.01 COPD with acute exacerbation J44.1 Influenza A J10.1 Secondary bacterial pneumonia J15.9 Acute metabolic encephalopathy G93.41 Sepsis A41.9 Diastolic CHF I50.30
[2024-05-22] MEDS: FUROsemide 10 mg/mL SDV 4mL 40 MG IVP (18:20)
[2024-05-22 19:47] LABS: Vancomycin Trough 24.2 ug/mL (10-15)
[2024-05-22] MEDS: atorvastatin 40 mg Tablet PO (20:16)
[2024-05-23] VITALS (13 sets, daily range): BP systolic 110–148; BP diastolic 51–72; PULSE 59–78; RESP 16–28; TEMP 36.3–37.2; O2SAT 92–100
--- NOTE | 2024-05-23 01:09 | PC.NURSE ---
Telepharmacy contacted by this nurse for high vancomycin trough of 24.2. Instructed to hold vancomycin order until in house pharmacy is here at 0600, due to poor creatinine clearance, for dose adjustment.
[2024-05-23 04:27] LABS: Basophils % 0.2 %; Lymphocytes # 0.2 10^3/uL (0.8-4.8); Lymphocytes % 4.5 %; Mean Corpuscular HGB Conc 30.3 g/dL (30-55); Mean Corpuscular Hemoglobin 25.6 pg (27-33); Mean Corpuscular Volume 84.6 fl (85-98); Mean Platelet Volume 10.6 fL (7.4-10.4); Monocytes # 0.2 10^3/uL (0.2-0.9); Monocytes % 3.9 %; Neutrophils # 4.69 10^3/uL (1.8-7.7); Nucleated Red Blood Cells % 0 %; Platelet Count 194 10^3/cmm (157-399); Red Blood Count 4.02 10^6/uL (3.85-5.65); White Blood Count 5.15 10^3/uL (3.29-11.43)
[2024-05-23 04:53] LABS: Anion Gap 14.5 (5-19); Blood Urea Nitrogen 34 mg/dL (8-23); Calcium 7.2 mg/dL (8.5-10.5); Carbon Dioxide 29 mmol/L (22-29); Chloride 99 mmol/L (98-107); Creatinine Clr Calc Pharmacy 44.2191; Glucose 161 mg/dL (65-115); NT Pro B Type Natriuretic Pept 2021 pg/mL (0-450); Osmolality Calculated 297 mOsm/kg (285-295); Potassium 4.5 mmol/L (3.5-5.1); Sodium 138 mmol/L (136-145)
[2024-05-23] MEDS: levothyroxine 200 mcg Tablet PO (05:10)
[2024-05-23] MEDS: sertraline 100 mg Tablet 200 MG PO (06:12)
[2024-05-23] MEDS: aspirin 81 mg EC Tablet PO (06:13)
[2024-05-23] MEDS: spironolactone 25 mg Tablet 12.5 MG PO (06:13)
[2024-05-23] MEDS: cefepime 1,000 mg SDV 1000 MG IVP ×2 (08:06→18:34)
[2024-05-23] MEDS: vancomycin 1,250 MG/250 ML PIGGYBACK 166.67 MG IV (08:07)
[2024-05-23] MEDS: BuSPIRONE 10 mg Tablet PO ×2 (08:07→18:36)
[2024-05-23] MEDS: oseltamivir phosphate 30 mg Capsule PO ×2 (08:07→18:36)
[2024-05-23] MEDS: ipratropium-albuterol 3 mL Neb INHALATION ×4 (09:15→19:54)
[2024-05-23] MEDS: budesonide 0.5 mg/2 mL Neb INHALATION ×2 (09:15→19:54)
--- NOTE | 2024-05-23 09:46 | PC.CHAP ---
Pastoral Care Encounter/Spiritual Assessment Type of Contact [] Declined work study student visit [] Patient/Family/Request visit [] Outpatient visit [] Follow-up visit [] Physician referral [] Code/Alert [x] Routine visit [] Staff referral [] Actively dying [] Patient sleeping [] Family support [] [] Out of room [] Palliative care [] [] Receiving care in room [] Pre-surgical visit [] Trauma [] Long length of stay [] ICU visit [] Other: Relational/Emotional Strength [] Patient feels connected with others/family/visitors/staff [] Distress [] Loneliness/isolation [] Abandonment Spirituality of Patient [] Person of Jaky [] Attends [employer] of their Jaky [] Believes in Prayer [] Reads Bible or Holiness materials [] There are Spiritual issues to be addressed 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 [] Prayer [] Active listening [] Non-anxious presence [] Spiritual/emotional support [] Crisis/trauma care [] Spiritual counseling [] Bereavement support [] Provided bereavement packet [] Provided Bible/devotional materials [] Provided toy/stuffed animal, coloring book to patient or family member [] Provided Communion [] Anointing/[place] [] Salvation [] Completed spiritual assessment [] Other: Impact on Illness or Injury [] Angry [] Fearful [] Anxious [] Often cries [] Exhaustion [] Unable to work [] Unable to attend shinto [] Unable to walk/stand [] Unable to read [] Unable to drive [] Unable to eat/drink [] Unable to sleep [] Unable to be with family [] Patient intubated [] Other: Summary precaution Time spent with patient
[2024-05-23] MEDS: FUROsemide 10 mg/mL SDV 4mL 40 MG IVP ×2 (10:05→19:02)
--- NOTE | 2024-05-23 13:09 | PC.SOCIAL ---
IMM Update pg 2 of IMM Updated and reviewed w/ patient. Copy provided and copy dated, initialed and placed in chart.
[2024-05-23] MEDS: pantoprazole 40 mg SDV IVP (18:35)
[2024-05-23] MEDS: dexamethasone 10 mg/mL INJ IVP (18:35)
[2024-05-23] MEDS: enoxaparin 40 mg/0.4 mL Syringe SUBCUT (18:36)
--- NOTE | 2024-05-23 18:47 | P.PN_ITS ---
Subjective 2 Subjective: Patient was seen this morning, she is alert to person, she knows that she is in the hospital, but not to time she does easily forget, she does complain of a cough and shortness of breath, Vitals/I&O/Wt Last Vital Signs Temp 99.0 F 05/23/24 16:00 Pulse 72 05/23/24 16:00 Resp 18 05/23/24 16:00 BP 129/58 05/23/24 16:00 Pulse Ox 97 05/23/24 16:00 O2 Del Method Nasal Cannula 05/23/24 16:00 O2 Flow Rate 3 05/23/24 12:00 FiO2 36 05/23/24 16:00 05/23/24 05/23/24 05/23/24 06:59 14:59 22:59 Output Total 2200 / 2200 Balance -2200 / -2200 Weight last 48 hrs Weight 96.434 kg Weight 96.524 kg Physical Exam 2 Const: COMMON NORMALS: no acute distress ORIENTATION/CONSCIOUSNESS: Yes awake, Yes oriented to person and Yes oriented to place Resp: COMMON NORMALS: normal respiratory effort, No retractions and No use of accessory muscles AUSCULTATION: crackles Cardio: COMMON NORMALS: regular rate, regular rhythm, S1 normal heart sound present and S2 normal heart sound present RATE: regular rate RHYTHM: r egular rhythm HEART SOUNDS: S1 normal heart sound present and S2 normal heart sound present GI: COMMON NORMALS: Normal to inspection, nondistended, normoactive bowel sounds present and non-tender Extremity: NARRATIVE EXTREMITY EXAM: 1+ edema Neuro: SENSORIUM/ORIENTATION: Yes oriented to person and Yes oriented to place Urinary Catheter Management: Mann: Cath Placed During This Visit: yes Reason for Continuing Indwelling Catheter: Acute Urinary Retention or Obstruction Urinary Catheter Date of Insertion: 05/21/24 Urinary Catheter Time of Insertion: 02:00 Data 05/23/24 03:06 05/23/24 03:06 A&P Assessment and plan (1) Acute respiratory failure with hypoxia: (2) COPD with acute exacerbation: (3) Influenza A: (4) Secondary bacterial pneumonia: (5) Acute metabolic encephalopathy: (6) Sepsis: (7) Diastolic CHF: Plan Acute metabolic and toxic encephalopathy, resolving -With underlying dementia -Secondary to influenza, sepsis, hypoxia - neurochecks, monitor mentation closely Sepsis, resolving -Sepsis features met given tachycardia, tachypnea, influenza, DELLA, evidence of respiratory distress, respiratory failure Acute hypoxic respiratory failure -Multifactorial -Secondary to influenza A -Secondary bacterial pneumonia -Diastolic CHF exacerbation -COPD exacerbation Plan ?Monitor respiratory status closely -Currently off BiPAP -Patient is much more alert awake, moved to medical floors -Tamiflu -Isolation precautions -Vancomycin -Cefepime -Lasix 40 IV mg twice daily -Monitor creatinine monitor urine output -Continue Decadron -Continue DuoNeb, budesonide Acute kidney injury, monitor creatinine COPD History of diastolic CHF Plan for today continue IV antibiotics continue IV diuresis, monitor respiratory status PDMP PDMP Reviewed: Not Reviewed Attestations 2 Medical Necessity Statement*: Patient requires hospitalization for acute hypoxic respiratory failure, CHF requiring diuresis, IV antibiotics Diagnoses Acute respiratory failure with hypoxia J96.01 COPD with acute exacerbation J44.1 Influenza A J10.1 Secondary bacterial pneumonia J15.9 Acute metabolic encephalopathy G93.41 Sepsis A41.9 Diastolic CHF I50.30
[2024-05-23] MEDS: potassium chloride ER 20 mEq Tablet PO (19:02)
[2024-05-23] MEDS: atorvastatin 40 mg Tablet PO (20:34)
[2024-05-24] VITALS (14 sets, daily range): BP systolic 104–137; BP diastolic 51–90; PULSE 64–80; RESP 16–19; TEMP 36.4–36.9; O2SAT 92–99; BMI 38.8
[2024-05-24 04:49] LABS: Basophils % 0.2 %; Hematocrit 36.7 % (36-47); Lymphocytes # 0.3 10^3/uL (0.8-4.8); Lymphocytes % 5.4 %; Mean Corpuscular HGB Conc 31.1 g/dL (30-55); Mean Corpuscular Hemoglobin 25.7 pg (27-33); Mean Corpuscular Volume 82.8 fl (85-98); Mean Platelet Volume 9.6 fL (7.4-10.4); Monocytes # 0.2 10^3/uL (0.2-0.9); Monocytes % 3.3 %; Neutrophils % 90.6 %; Nucleated Red Blood Cells % 0 %; Platelet Count 214 10^3/cmm (157-399); Red Blood Count 4.43 10^6/uL (3.85-5.65); Red Cell Distribution Width 16.7 % (12.1-15.1); White Blood Count 5.74 10^3/uL (3.29-11.43)
[2024-05-24 05:15] LABS: Anion Gap 18.6 (5-19); Blood Urea Nitrogen 32 mg/dL (8-23); Calcium 7.1 mg/dL (8.5-10.5); Carbon Dioxide 30 mmol/L (22-29); Chloride 94 mmol/L (98-107); Creatinine Clr Calc Pharmacy 44.1959; Glucose 171 mg/dL (65-115); NT Pro B Type Natriuretic Pept 1574 pg/mL (0-450); Osmolality Calculated 297 mOsm/kg (285-295); Potassium 4.6 mmol/L (3.5-5.1); Sodium 138 mmol/L (136-145)
[2024-05-24] MEDS: spironolactone 25 mg Tablet 12.5 MG PO (05:41)
[2024-05-24] MEDS: levothyroxine 200 mcg Tablet PO (05:41)
[2024-05-24] MEDS: sertraline 100 mg Tablet 200 MG PO (05:41)
[2024-05-24] MEDS: aspirin 81 mg EC Tablet PO (05:41)
[2024-05-24] MEDS: vancomycin 1,250 MG/250 ML PIGGYBACK 167 MG IV (05:45)
[2024-05-24] MEDS: ipratropium-albuterol 3 mL Neb INHALATION ×3 (08:36→22:27)
[2024-05-24] MEDS: budesonide 0.5 mg/2 mL Neb INHALATION ×2 (08:36→22:27)
[2024-05-24] MEDS: cefepime 1,000 mg SDV 1000 MG IVP ×2 (09:15→18:38)
[2024-05-24] MEDS: FUROsemide 10 mg/mL SDV 4mL 40 MG IVP ×2 (09:15→18:38)
[2024-05-24] MEDS: oseltamivir phosphate 30 mg Capsule PO ×2 (09:16→18:38)
[2024-05-24] MEDS: BuSPIRONE 10 mg Tablet PO ×2 (09:16→18:38)
--- NOTE | 2024-05-24 17:20 | PC.NURSE ---
Patient has redness under breast and groin area. Dr. Albright notified and nystatin cream QID.
--- NOTE | 2024-05-24 17:22 | P.PN_ITS ---
Subjective 2 Subjective: Patient was seen this morning, she is alert to person, not to place, not to time she can follow most commands, she continues to complain of weakness and shortness of breath, cough Vitals/I&O/Wt Last Vital Signs Temp 98.3 F 05/24/24 16:12 Pulse 80 05/24/24 16:12 Resp 19 H 05/24/24 16:12 BP 117/67 05/24/24 16:12 Pulse Ox 92 05/24/24 16:00 O2 Del Method Nasal Cannula 05/24/24 16:00 O2 Flow Rate 1 05/24/24 11:08 FiO2 36 05/23/24 16:00 05/24/24 05/24/24 05/24/24 06:59 14:59 22:59 Output Total 1999 / 4199 Balance -1999 / -3950 Weight last 48 hrs Weight 96.417 kg Weight 96.434 kg Physical Exam 2 Const: COMMON NORMALS: no acute distress and patient oriented x3 Resp: COMMON NORMALS: normal respiratory effort, No retractions and No use of accessory muscles AUSCULTATION: wheezes Cardio: COMMON NORMALS: regular rate, regular rhythm, S1 normal heart sound present and S2 normal heart sound present RATE: regular rate RHYTHM: r egular rhythm HEART SOUNDS: S1 normal heart sound present and S2 normal heart sound present GI: COMMON NORMALS: Normal to inspection, nondistended, normoactive bowel sounds present and non-tender Extremity: COMMON NORMALS: no pedal edema Neuro: COMMON NORMALS: patient oriented x3 Psych: COMMON NORMALS: mental status grossly normal Urinary Catheter Management: Mann: Cath Placed During This Visit: yes, but has since been removed by the nurse Reason for Continuing Indwelling Catheter: Decision to DC Catheter Urinary Catheter Date of Insertion: 05/21/24 Urinary Catheter Time of Insertion: 02:00 Date Urinary Catheter Removed: 05/23/24 Time Urinary Catheter Discontinued: 23:18 Data 05/24/24 04:18 05/24/24 04:18 A&P Assessment and plan (1) Acute respiratory failure with hypoxia: (2) COPD with acute exacerbation: (3) Influenza A: (4) Secondary bacterial pneumonia: (5) Acute metabolic encephalopathy: (6) Sepsis: (7) Diastolic CHF: Plan Acute metabolic and toxic encephalopathy, resolving -With underlying dementia -Secondary to influenza, sepsis, hypoxia - neurochecks, monitor mentation closely Sepsis, resolving -Sepsis features met given tachycardia, tachypnea, influenza, DELLA, evidence of respiratory distress, respiratory failure Acute hypoxic respiratory failure -Multifactorial -Secondary to influenza A -Secondary bacterial pneumonia -Diastolic CHF exacerbation -COPD exacerbation Plan ?Monitor respiratory status closely -Currently off BiPAP -Patient is much more alert awake, moved to medical floors -Tamiflu -Isolation precautions -Vancomycin -Cefepime -Lasix 40 IV mg twice daily -Monitor creatinine monitor urine output -Continue Decadron -Continue DuoNeb, budesonide Acute kidney injury, monitor creatinine COPD History of diastolic CHF Plan for today continue IV antibiotics continue IV diuresis, monitor respiratory status PDMP PDMP Reviewed: Not Reviewed Attestations 2 Medical Necessity Statement*: Patient requires hospitalization for acute hypoxic respiratory failure requiring IV diuresis Diagnoses Acute respiratory failure with hypoxia J96.01 COPD with acute exacerbation J44.1 Influenza A J10.1 Secondary bacterial pneumonia J15.9 Acute metabolic encephalopathy G93.41 Sepsis A41.9 Diastolic CHF I50.30
[2024-05-24] MEDS: dexamethasone 4 mg/mL INJ PO (18:38)
[2024-05-24] MEDS: enoxaparin 40 mg/0.4 mL Syringe SUBCUT (18:39)
[2024-05-24] MEDS: pantoprazole 40 mg SDV IVP (18:39)
[2024-05-24] MEDS: atorvastatin 40 mg Tablet PO (20:53)
[2024-05-24] MEDS: nystatin cream 30 gm 1 APPLIC TOPICAL (20:57)
[2024-05-25 04:00] VITALS: BP 106/57; PULSE 67; RESP 18; TEMP 37; O2SAT 96
[2024-05-25 05:20] LABS: Basophils % 0.3 %; Eosinophils % 0.1 %; Hematocrit 37.1 % (36-47); Lymphocytes # 0.5 10^3/uL (0.8-4.8); Lymphocytes % 6.9 %; Mean Corpuscular HGB Conc 31.5 g/dL (30-55); Mean Corpuscular Hemoglobin 25.7 pg (27-33); Mean Corpuscular Volume 81.4 fl (85-98); Mean Platelet Volume 9.5 fL (7.4-10.4); Monocytes # 0.3 10^3/uL (0.2-0.9); Monocytes % 3.8 %; Neutrophils # 6.44 10^3/uL (1.8-7.7); Neutrophils % 88.5 %; Nucleated Red Blood Cells % 0 %; Platelet Count 219 10^3/cmm (157-399); Red Blood Count 4.56 10^6/uL (3.85-5.65); Red Cell Distribution Width 16.7 % (12.1-15.1); White Blood Count 7.28 10^3/uL (3.29-11.43)
[2024-05-25 05:51] LABS: Anion Gap 19.7 (5-19); Blood Urea Nitrogen 36 mg/dL (8-23); Calcium 6.9 mg/dL (8.5-10.5); Carbon Dioxide 30 mmol/L (22-29); Chloride 93 mmol/L (98-107); Creatinine Clr Calc Pharmacy 40.5089; Glucose 124 mg/dL (65-115); NT Pro B Type Natriuretic Pept 934 pg/mL (0-450); Osmolality Calculated 298 mOsm/kg (285-295); Potassium 3.7 mmol/L (3.5-5.1); Sodium 139 mmol/L (136-145)
[2024-05-25] MEDS: spironolactone 25 mg Tablet 12.5 MG PO (06:08)
[2024-05-25] MEDS: sertraline 100 mg Tablet 200 MG PO (06:08)
[2024-05-25] MEDS: levothyroxine 200 mcg Tablet PO (06:08)
[2024-05-25] MEDS: aspirin 81 mg EC Tablet PO (06:08)
[2024-05-25] MEDS: ipratropium-albuterol 3 mL Neb INHALATION (07:20)
[2024-05-25] MEDS: budesonide 0.5 mg/2 mL Neb INHALATION (07:20)
[2024-05-25 07:22] VITALS: PULSE 79; RESP 18; O2SAT 96
[2024-05-25 07:29] VITALS: PULSE 81; RESP 18; O2SAT 92
[2024-05-25 08:00] VITALS: BP 137/69; PULSE 79; RESP 18; TEMP 36.6; O2SAT 95
[2024-05-25] MEDS: BuSPIRONE 10 mg Tablet PO (09:31)
[2024-05-25] MEDS: FUROsemide 10 mg/mL SDV 4mL 40 MG IVP (09:31)
[2024-05-25] MEDS: cefepime 1,000 mg SDV 1000 MG IVP (09:31)
[2024-05-25] MEDS: potassium chloride ER 20 mEq Tablet PO (09:31)
[2024-05-25] MEDS: oseltamivir phosphate 30 mg Capsule PO (09:31)
[2024-05-25] MEDS: nystatin cream 30 gm 1 APPLIC TOPICAL ×2 (09:32→12:19)
--- NOTE | 2024-05-25 11:02 | P.DS_ITS ---
Discharge Providers Date of Admission: 05/20/24 18:07 Date of Discharge: May 25, 2024 Attending Provider at Admission: Gagan Albright MD Attending Provider at Discharge: Gagan Albright MD Primary Care Provider: Viktor Baker MD Diagnoses at Discharge Discharge Diagnosis (1) Acute respiratory failure with hypoxia: Status: Acute Permanent problem details: -Required intubation following CODE BLUE, extubated on 05/14 (2) COPD with acute exacerbation: Status: Acute (3) Influenza A: Status: Acute (4) Secondary bacterial pneumonia: Status: Acute (5) Acute metabolic encephalopathy: Status: Acute (6) Sepsis: Status: Acute (7) Diastolic CHF: Status: Acute Reason for Visit Reason for Visit: SOB Hospital Course Hospital Course Michelle Becerra is a 79 year old female with a past medical history of COPD, diastolic CHF, hypothyroidism, history of dementia, currently a resident at [facility]. Memory care unit. Currently patient alert to person, not to place, not to time she does not follow commands, is trying to remove her BiPAP mask, but is redirectable. She complains that she is short of breath, complains of a cough, she complains that she wants to be sent back to [facility]. But besides that she has no other complaints, she does have episodes of tachypnea, tachycardia, nasal flaring, mild suprasternal retractions, she is short of breath after a few words, she is on 40% BiPAP. I spoke to [facility] shelter, spoke to nursing staff, they advised me that Michelle, is not ambulatory she can do sit to stand, she can feed herself but at times requires assistance, she has dementia, which is has been stable for the last few months, this afternoon, they found her with low O2 sats, in the 70s, she was short of breath so they had sent her to [facility] for further evaluation. This is a 79-year-old female with a past medical history of acute hypoxic respiratory failure secondary to influenza A, secondary bacterial pneumonia, diastolic CHF, COPD who presents to [facility] for shortness of breath. Patient received broad-spectrum antibiotic therapy, Tamiflu, IV diuresis, required BiPAP, overall clinically improved. Patient will be discharged on p.o. antibiotic therapy, p.o. diuresis with a close follow-up with primary care provider as outpatient. Acute metabolic and toxic encephalopathy, resolved, does have underlying dementia. Physical Exam Const: COMMON NORMALS: no acute distress ORIENTATION/CONSCIOUSNESS: Yes awake, Yes oriented to person and Yes oriented to place; not oriented to time Resp: COMMON NORMALS: normal respiratory effort, No retractions, No use of accessory muscles and clear to auscultation bilaterally AUSCULTATION: clear to auscultation bilaterally Cardio: COMMON NORMALS: regular rate, regular rhythm, S1 normal heart sound present and S2 normal heart sound present RATE: regular rate RHYTHM: regular rhythm HEART SOUNDS: S1 normal heart sound present and S2 normal heart sound present GI: COMMON NORMALS: Normal to inspection, nondistended, normoactive bowel sounds present and non-tender Extremity: COMMON NORMALS: no pedal edema Neuro: SENSORIUM/ORIENTATION: Yes oriented to person, Yes oriented to place and No oriented to time Psych: COMMON NORMALS: mental status grossly normal Urinary Catheter Management: Mann: Cath Placed During This Visit: yes, but has since been removed by the nurse Reason for Continuing Indwelling Catheter: Decision to DC Catheter Urinary Catheter Date of Insertion: 05/21/24 Urinary Catheter Time of Insertion: 02:00 Date Urinary Catheter Removed: 05/23/24 Time Urinary Catheter Discontinued: 23:18 Discharge Data Studies Completed and Pending Completed Studies During Hospitalization Category Date Time Status XR chest 1V portable 07115 Stat Exams 05/20/24 16:16 Completed Pending at discharge Category Date Time Status Blood Culture Stat Lab 05/20/24 18:30 Results Complete Blood Count w/Auto AM LABS Lab 05/26/24 04:00 Ordered NT Pro B Type Natriuretic Pept QAM Lab 05/26/24 06:00 Ordered NT Pro B Type Natriuretic Pept QAM Lab 05/27/24 06:00 Ordered Radiology Impressions Chest X-Ray 05/20/24 16:16 IMPRESSION: No acute findings. Laboratory Results WBC 7.28 10^3/uL (3.29-11.43) 05/25/24 04:40 RBC 4.56 10^6/uL (3.85-5.65) 05/25/24 04:40 Hgb 11.70 g/dL (11.27-16.99) 05/25/24 04:40 Hct 37.1 % (36-47) 05/25/24 04:40 MCV 81.4 fl (85-98) L 05/25/24 04:40 MCH 25.7 pg (27-33) L 05/25/24 04:40 MCHC 31.5 g/dL (30-55) 05/25/24 04:40 RDW 16.7 % (12.1-15.1) H 05/25/24 04:40 Plt Count 219 10^3/cmm (157-399) 05/25/24 04:40 MPV 9.5 fL (7.4-10.4) 05/25/24 04:40 Neut % (Auto) 88.5 % 05/25/24 04:40 Lymph % (Auto) 6.9 % 05/25/24 04:40 [place] % (Auto) 3.8 % 05/25/24 04:40 Eos % (Auto) 0.1 % 05/25/24 04:40 Baso % (Auto) 0.3 % 05/25/24 04:40 Neut # (Auto) 6.44 10^3/uL (1.8-7.7) 05/25/24 04:40 Lymph # (Auto) 0.5 10^3/uL (0.8-4.8) L 05/25/24 04:40 [place] # (Auto) 0.3 10^3/uL (0.2-0.9) 05/25/24 04:40 Eos # (Auto) 0.0 10^3/uL (0.0-0.8) 05/25/24 04:40 Baso # (Auto) 0.0 10^3/uL (0.0-0.1) 05/25/24 04:40 Nucleated RBC % (auto) 0 % 05/25/24 04:40 Nucleated RBCs # 0.0 /100WBC 05/25/24 04:40 PT 14.40 SECONDS (12.1-14.9) 05/22/24 03:50 INR 1.04 (0.8-1.2) 05/22/24 03:50 APTT 32.4 SECONDS (23.9-36.7) 05/22/24 03:50 Specimen Type Arterial 05/20/24 16:10 Sample Site Radial, left 05/20/24 16:10 ABG pH 7.32 (7.35-7.45) L 05/20/24 16:10 ABG pCO2 57.9 mmHg (35-45) H 05/20/24 16:10 ABG pO2 117.0 mmHg (80.0-100.0) H 05/20/24 16:10 ABG HCO3 30.0 mmol/L (22-26) H 05/20/24 16:10 ABG O2 Saturation 98.9 05/20/24 16:10 ABG Base Excess 2.8 mmol/L (-2.0-2.0) H 05/20/24 16:10 Jordan Test Pos 05/20/24 16:10 A-a O2 Gradient Not Reportable 05/20/24 16:10 Hematocrit 36.4 % (37-47) L 05/20/24 16:10 Hgb O2 Saturation 97.1 % (95-100) 05/20/24 16:10 Carboxyhemoglobin 1.0 %THgb (0.4-20.1) 05/20/24 16:10 Methemoglobin 0.9 % (0.4-1.5) 05/20/24 16:10 Total Hemoglobin 11.9 g/dL (12-16) L 05/20/24 16:10 Sodium 138.0 mmol/L (131-143) 05/20/24 16:10 Potassium 4.0 mmol/L (3.5-5.0) 05/20/24 16:10 Glucose 185.0 mg/dL (70-115) H 05/20/24 16:10 Ionized Calcium 1.0 mmol/L (1.1-1.4) L 05/20/24 16:10 O2 Delivery Device Nc 05/20/24 16:10 O2 Liters/Min 6.0 % 05/20/24 16:10 Armored Truck Driver ID Broma 05/20/24 16:10 Sodium 139 mmol/L (136-145) 05/25/24 04:40 Potassium 3.7 mmol/L (3.5-5.1) 05/25/24 04:40 Chloride 93 mmol/L (98-107) L 05/25/24 04:40 Carbon Dioxide 30 mmol/L (22-29) H 05/25/24 04:40 Anion Gap 19.7 (5-19) H 05/25/24 04:40 BUN 36 mg/dL (8-23) H 05/25/24 04:40 Creatinine 1.2 mg/dL (0.5-0.9) H 05/25/24 04:40 GFR Calculation Not Reportable 05/25/24 04:40 Glucose 124 mg/dL (65-115) H 05/25/24 04:40 Calculated Osmolality 298 mOsm/kg (285-295) H 05/25/24 04:40 Lactic Acid 1.9 mmol/L (0.5-2.2) 05/20/24 16:15 Calcium 6.9 mg/dL (8.5-10.5) L 05/25/24 04:40 Phosphorus 4.3 mg/dL (2.5-4.5) 05/22/24 03:50 Magnesium 1.9 mg/dL (1.7-2.3) 05/22/24 03:50 Total Bilirubin 0.4 mg/dL (0.15-1.2) 05/22/24 03:50 AST 11 U/L (0-32) 05/22/24 03:50 ALT < 5 U/L (0-33) 05/22/24 03:50 Alkaline Phosphatase 82 U/L (35-105) 05/22/24 03:50 Troponin T Baseline 25 ng/L (0-10) H 05/20/24 16:15 Troponin T 120 Minute 23.71 ng/L (0-10) H 05/20/24 18:25 Delta Troponin T -1.29 ABS# (0-10) L 05/20/24 18:25 Troponin T Hi Sens 6Hr 20.40 ng/L (0-10) H 05/20/24 22:03 Troponin T Hi Sens 6Hr Delta -4.60 ng/L (0-12) L 05/20/24 22:03 C-Reactive Protein 46.4 mg/L (0.0-4.9) H 05/20/24 16:15 NT-Pro-B Natriuret Pep 934 pg/mL (0-450) H 05/25/24 04:40 Total Protein 6.4 g/dL (6.6-8.7) L 05/22/24 03:50 Albumin 3.4 g/dL (3.5-5.2) L 05/22/24 03:50 Globulin 3.0 g/dL (1.3-4.6) 05/22/24 03:50 Procalcitonin 0.11 ng/mL (0-0.5) 05/20/24 16:15 TSH 1.93 uIU/mL (0.27-4.20) 05/20/24 16:15 Urine Color Yellow (Yellow) 05/21/24 02:15 Urine Appearance Clear (CLEAR) 05/21/24 02:15 Urine pH 5.0 (5-7) 05/21/24 02:15 Ur Specific [place] 1.019 (1.005-1.030) 05/21/24 02:15 Urine Protein Trace (Negative) A 05/21/24 02:15 Urine Glucose (UA) Negative (Normal) 05/21/24 02:15 Urine Ketones Negative (Negative) 05/21/24 02:15 Urine Blood Negative (Negative) 05/21/24 02:15 Urine Nitrate Negative (Negative) 05/21/24 02:15 Urine Bilirubin Negative (Negative) 05/21/24 02:15 Urine Urobilinogen 0.2 mg/dL (Negative) 05/21/24 02:15 Ur Leukocyte Esterase Negative (Negative) 05/21/24 02:15 Urine RBC 0-4 /hpf (0-2) H 05/21/24 02:15 Urine WBC 0-4 /hpf (0-5) H 05/21/24 02:15 Ur Squamous Epith Cells 0-4 /hpf (0-5) H 05/21/24 02:15 Amorphous Sediment Not Reportable 05/21/24 02:15 Urine Bacteria Trace /hpf (NONE) 05/21/24 02:15 Vancomycin Trough 24.2 ug/mL (10-15) H 05/22/24 18:54 Influenza A (PCR) Positive (Negative) 05/20/24 17:04 Influenza Type B (PCR) Negative (Negative) 05/20/24 17:04 RSV (PCR) Negative (Negative) 05/20/24 17:04 SARS-CoV-2 (PCR) Negative (Negative) 05/20/24 17:04 Vitals Last Vital Signs Temp 97.8 F 05/25/24 08:00 Pulse 79 05/25/24 08:00 Resp 18 05/25/24 08:00 BP 137/69 05/25/24 08:00 Pulse Ox 95 05/25/24 08:00 O2 Del Method Nasal Cannula 05/25/24 08:00 O2 Flow Rate 1 05/25/24 07:22 FiO2 36 05/23/24 16:00 Discharge Plan Discharge Patient Disposition: Xfer [facility] Condition: Stable Prescriptions: New cefdinir 300 mg capsule 300 mg PO BID 5 Days Qty: 10 0RF potassium chloride [Klor-Con 10] 10 mEq tablet extended release 10 meq PO BID 30 Days Qty: 60 0RF Continued Anoro Ellipta 62.5-25 mcg/actuation blister with device 1 inh INHALATION DAILY@07 albuterol sulfate [Ventolin HFA] 90 mcg/actuation HFA aerosol inhaler 2 puff INHALATION Q6H PRN (Reason: Shortness Of Breath) nitroglycerin 0.4 mg tablet, sublingual 0.4 mg SUBLINGUAL Q5M PRN (Reason: Chest Pain) Rx Instructions: do not exceed 3 doses per episode sertraline 100 mg Tablet 200 mg PO DAILY@07 atorvastatin 40 mg tablet 40 mg PO BEDTIME@20 acetaminophen [Tylenol] 325 mg Tablet 325 - 650 mg PO Q6H PRN (Reason: Pain) clonazepam 0.5 mg tablet 0.5 mg PO DAILY@07 clonazepam 1 mg tablet 1 mg PO BEDTIME@20 aspirin 81 mg Tablet,Delayed Release (Dr/Ec) 81 mg PO DAILY@07 levothyroxine 200 mcg tablet 200 mcg PO DAILY@05 bisacodyl [Dulcolax (bisacodyl)] 5 mg Tablet,Delayed Release (Dr/Ec) 10 mg PO DAILY PRN (Reason: Constipation) ipratropium-albuterol 0.5 mg-3 mg(2.5 mg base)/3 mL Solution For Nebulization 3 ml INHALATION Q6H PRN (Reason: Dyspnea) spironolactone 25 mg tablet 12.5 mg PO DAILY@07 cholecalciferol (vitamin D3) [Vitamin D3] 10 mcg (400 unit) Tablet 400 unit PO DAILY@07 buspirone 10 mg tablet 10 mg PO BID menthol-zinc oxide [Calmoseptine] 0.44-20.6 % ointment 1 applic topical DAILY Changed furosemide 40 mg tablet See Rx Instructions .ROUTE .COMPLEX Qty: 60 0RF Rx Instructions: 1tab (40mg) in qam and 0.5tab(20mg) in qpm Discontinued bisacodyl [Dulcolax (bisacodyl)] 10 mg Suppository 10 mg [place] DAILY PRN (Reason: Constipation) prednisone 20 mg tablet 20 mg PO QAM Rx Instructions: end date 05/23/2023 Discharge Orders: Discharge Order (Routine); Ordered 05/25/24 Ordered By: Gagan Albright Referrals: [facility] [Outside] Viktor Baker MD [Primary Care Provider] - Discharge Diet: Cardiac Discharge Activity: Resume usual activity Patient Instructions: Opioid Safety Activity Restrictions/Additional Instructions: - If you have shortness of breath please go to emergency room -Please check kidney function in 48 hours -Follow-up with primary care in 1 week Discharge Attestations Time Spent in Discharge Care*: greater than 30 min Status at Discharge: Cognitive status at discharge: moderately impaired cognition , Behavioral status at discharge: cooperative, can be uncooperative and dependent in ADL's , Quality Metrics Clinical Quality Measures [ No reported AMI, CVA or VTE this stay] Coding Level of Care Code 29899 Total time (in minutes) for Discharge: 45 Diagnoses Acute respiratory failure with hypoxia J96.01 COPD with acute exacerbation J44.1 Influenza A J10.1 Secondary bacterial pneumonia J15.9 Acute metabolic encephalopathy G93.41 Sepsis A41.9 Diastolic CHF I50.30
[2024-05-25 11:33] VITALS: BP 116/71; PULSE 80; RESP 18; TEMP 36.8; O2SAT 92
--- NOTE | 2024-05-25 12:46 | PC.NURSE ---
Attempted to call report. Carie nurse, would not accept report at this time. Will try to call back.
--- NOTE | 2024-05-25 13:01 | PC.NURSE ---
Report called to Bert at [facility].
--- NOTE | 2024-05-25 13:09 | PC.SOCIAL ---
IMM Update pg 2 of IMM Updated and reviewed w/ patient. Copy provided and copy dated, initialed and placed in chart.
[2024-05-25 14:41] VITALS: BP 116/71; PULSE 80; RESP 18; TEMP 36.8; O2SAT 92
== END 2024-05-25 14:42 | disposition skilled nursing facility (03) | DRG 871 ==
LOC: ER 18:05 → ER IP 18:11 → MEDSURG 05-21 15:25
PROVIDERS: Admitting Provider Family Medicine; Emergency Provider Emergency Medicine; PCP Family Medicine; Visit Provider Family Medicine
DX: A41.9 Sepsis, unspecified organism (principal); G92.8 Other toxic encephalopathy; J96.21 Acute and chronic respiratory failure with hypoxia; J96.22 Acute and chronic respiratory failure with hypercapnia; J10.08 Influenza due to other identified influenza virus with other specified pneumonia; J15.9 Unspecified bacterial pneumonia; I50.33 Acute on chronic diastolic (congestive) heart failure; I13.0 Hypertensive heart and chronic kidney disease with heart failure and stage 1 through stage 4 chronic kidney disease, or unspecified chronic kidney disease; J44.1 Chronic obstructive pulmonary disease with (acute) exacerbation; J44.0 Chronic obstructive pulmonary disease with (acute) lower respiratory infection; N17.9 Acute kidney failure, unspecified; R65.20 Severe sepsis without septic shock; Z66 Do not resuscitate; I25.10 Atherosclerotic heart disease of native coronary artery without angina pectoris; E11.22 Type 2 diabetes mellitus with diabetic chronic kidney disease; F01.50 Vascular dementia, unspecified severity, without behavioral disturbance, psychotic disturbance, mood disturbance, and anxiety; K21.9 Gastro-esophageal reflux disease without esophagitis; N18.9 Chronic kidney disease, unspecified; F32.A Depression, unspecified; I25.2 Old myocardial infarction; E89.0 Postprocedural hypothyroidism; Z86.718 Personal history of other venous thrombosis and embolism; Z99.81 Dependence on supplemental oxygen; Z85.850 Personal history of malignant neoplasm of thyroid; Z79.899 Other long term (current) drug therapy; Z79.82 Long term (current) use of aspirin; Z79.890 Hormone replacement therapy; Z88.0 Allergy status to penicillin; Z88.8 Allergy status to other drugs, medicaments and biological substances; Z87.891 Personal history of nicotine dependence; Z86.0100 Personal history of colon polyps, unspecified; Z90.49 Acquired absence of other specified parts of digestive tract; R33.9 Retention of urine, unspecified
CPT/HCPCS: 36415; 36600; 51702; 71045; 80048; 80051; 80053; 80202; 81001; 82330; 82805; 83605; 83735; 83880; 84100; 84145; 84443; 84484; 85025; 85610; 85730; 86140; 87040; 87637; 93005; 94640; 94660; 94664; 96365; 96367; 96372; 96375; 97161; 97167; 97535; 99291; J0692; J1100; J1650; J1940; J2470; J3370; J3480; J3490; J7050; J7613; J7626

== ENCOUNTER 2025-01-21 00:45 | Emergency (ER) | payer MEDICARE, MEDICAID, SELFPAY ==
[2025-01-21] VITALS (14 sets, daily range): BP systolic 102–144; BP diastolic 58–74; PULSE 72–88; RESP 13–34; O2SAT 95–100; BMI 37.0
--- NOTE | 2025-01-21 00:55 | ECG_ITS ---
[employer] Test Date: 2025-01-21 Pat Name: Michelle Becerra Department: Room: Gender: Female Application Support Engineer: : [id number] Requested By: Juwan Webster Order Number: [id number] Reading MD: AIDAN POLO Measurements Intervals [place] Rate: 87 P: 56 WI: 159 QRS: -5 QRSD: 100 T: 70 QT: 394 QTc: 474 Interpretive Statements SINUS RHYTHM WITH OCCASIONAL VENTRICULAR PREMATURE COMPLEXES Compared to ECG 05/20/2024 18:13:49 Ventricular premature complex(es) now present T-wave abnormality no longer present Electronically Signed On 01-22-2025 22:27:11 CDT by AIDAN POLO [email or web address]
--- OUTSIDE RECORDS SUMMARY | 2025-01-21 00:58 | XMS_ITS | Encounter Summary ---
Author Organization [facility] Address [address] [place] [address] Care Team Providers Care Training Development Manager Name Role Phone Viktor Baker MD Primary Care Provider [phone] Encounter Details Date Type Department Care Team (Latest Contact Info) Description 12/01/2007 Outpatient Historical [facility] [place] [address] [place] [address] Leonid Ulloa MD [address] [place] [address] Leonid Hope MD [address] [place] [address] Dysphagia; Other Chest Pain Social History Tobacco Use Types Packs/Day Years Used Date Smoking Tobacco: Never Assessed Comments Unknown Sex and Gender Information Value Date Recorded Sex Assigned at Not on file 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
--- OUTSIDE RECORDS SUMMARY | 2025-01-21 00:58 | XMS_ITS | Continuity of Care Document ---
Author Organization [facility] Address [address] [place] [address] Care Team Providers Care Automotive Quality Engineer Name Role Phone Samuel LEE, Dr. Hoang Attending Physician [phone] Medications Medication Frequency Instructions Diagnosis Start Date End Date Last Administered acetaminophen 325 mg tablet Every 6 Hours - PRN 1-2 tabs (325-650 mg), oral, Every 6 Hours - PRN, for pain or fever 025 12/18/2024 07:02 PM albuterol sulfate 90 mcg/actuation HFA aerosol inhaler Every 6 Hours - PRN 2 puffs, inhalation, Every 6 Hours - PRN, SOB OR WHEEZING J44.1 : Chronic obstructive pulmonary disease with (acute) exacerbation 025 10/08/2024 04:33 AM Anoro Ellipta (umeclidinium-mookie anterol) 62.5-25 mcg/actuation blister with device Once A Day 1 inhalation, inhalation, Once A Day J44.1 : Chronic obstructive pulmonary disease with (acute) exacerbation 01/19/2025 07:25 AM aspirin 81 mg tablet,chewable Once A Day 1, oral, Once A Day 01/19/2025 07:25 AM atorvastatin 40 mg tablet At Bedtime 1 tab, oral, At Bedtime 01/19/2025 06:52 PM buspirone 10 mg tablet Twice A Day 1 tab, oral, Twice A Day F41.1 : Generalized anxiety disorder 01/19/2025 06:52 PM cholecalciferol (vitamin D3) 10 mcg (400 unit) tablet Once A Day 1 tab, oral, Once A Day 01/19/2025 07:25 AM clonazepam 0.5 mg tablet Once A Day 1 tab, oral, Once A Day, exempt F41.9 01/19/2025 07:25 AM clonazepam 1 mg tablet At Bedtime 1 tab, oral, At Bedtime, exempt F41.9 01/19/2025 06:52 PM doxycycline hyclate 100 mg capsule Twice A Day 1 capsule, oral, Twice A Day, clinical indication: congestion 202401/19/2025 06:52 PM Dulcolax (bisacodyl) (bisacodyl) 10 mg suppository Once A Day - PRN 1 suppository, rectal, Once A Day - PRN, Give rectally if can't take p/o, if no results from [facility] furosemide 40 mg tablet Once A Day 1 tab, oral, Once A Day 01/19/2025 07:25 AM furosemide 20 mg tablet At Bedtime 1 tab, oral, At Bedtime, Give at 3pm 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 01/19/2025 02:36 PM ipratropium-albut maday 0.5 mg-3 mg(2.5 mg base)/ solution for nebulization Every 6 Hours - PRN 1 neb, inhalation, Every 6 Hours - PRN, for sob or wheezing J96.92 : Respiratory failure, unspecified with hypercapnia 01/19/2025 03:06 PM ipratropium-albut maday 0.5 mg-3 mg(2.5 mg base)/3 mL solution for nebulization Every 6 Hours 1 vial, inhalation, Every 6 Hours 202401/19/2025 11:58 PM levothyroxine 200 mcg tablet Once A Day 1 tab, oral, Once A Day 01/19/2025 07:25 AM lorazepam 0.5 mg tablet Twice A Day - PRN 1, oral, Twice A Day - PRN F41.1 : Generalized anxiety disorder 202401/13/2025 01:13 PM menthol-zinc oxide 0.44-20.6 % ointment Once A Day 1 thalia, topical, Once A Day, apply to affected area 01/19/2025 09:12 AM nitroglycerin 0.4 mg tablet, sublingual Three Times A Day - PRN 1 tab, sublingual, Three Times A Day - PRN, every 5 minutes x 3 for chest pain, not to exceed 3 doses in 15 minutes, if pain persists, seek medical attention nystatin 100,000 unit/gram powder Every Shift 1 time, topical, Every Shift, Apply to affected area 01/19/2025 06:52 PM potassium chloride 10 mEq capsule, extended release Twice A Day 1, oral, Twice A Day 01/19/2025 06:52 PM prednisone 20 mg tablet Once A Day 2 tab= 40 mg, oral, Once A Day, clinical indication: wheezing 202401/19/2025 08:58 PM sertraline 100 mg tablet Once A Day 2 tabs (200 mg), oral, Once A Day F33.1 : Major depressive disorder, recurrent, moderate 01/19/2025 07:25 AM spironolactone 25 mg tablet Once A Day 0.5 tab (12.5 mg), oral, Once A Day 025 01/19/2025 07:25 AM furosemide 10 mg/mL solution Once - One Time 40 mg, injection, Once - One Time, clinical indication : dyspnea/ swelling 025 202401/19/2025 11:57 PM lorazepam 0.5 mg tablet Twice A Day - PRN 1, oral, Twice A Day - PRN F41.1 : Generalized anxiety disorder 025 202401/05/2025 12:42 PM Problems Code Type Problem ICD Code Effective Date Status ICD-10 Atherosclerotic hear t disease of [place] coronary artery without angina pectoris I25.10 11/03/2019 Active ICD-10 FPC (current) use of aspirin Z79.82 0 11/03/2019 Active ICD-10 Chronic obstructive pulmonary disease, unspecified J44.9 08/09/2024 Active ICD-10 Chronic respiratory failure with hypoxia J96.11 08/09/2024 Active ICD-10 Respiratory failure, unspecified with hypercapnia J96.92 05/25/2024 Active ICD-10 FPC (current) use of inhaled steroids Z79 .51 04/14/2022 Active ICD-10 Hypertensive heart a nd chronic [...] of other organs Z90.89 08/2019 Active ICD-10 Morbid (severe) obes ity due to excess calories E66.01 02/24/2024 Active ICD-10 Body mass index [BMI]40.0-44.9, adult Z68.41 10/28/2024 Active ICD-10 Unspecified urinary incontinence R32 08/2019 Active ICD-10 Do not resuscitate Z66 08/02/2021 Active Current Allergies and Intolerances Category Substance Type Reaction Severity Begin Date Status Drug allergy piperacillin-tazobactam Allergy 08/2019 Active Vital Signs Height: 60.0 in Date / Time Temperature Pulse (per minute) Respirations (per minute) Systolic BP (mmHg) Diastolic BP (mmHg) O2 Saturation (%) Weight BMI 2024 08:52 PM 95.0 2024 04:45 PM 56 24 98.0 2024 03:05 PM 84 24 90.0 2024 09:51 AM 91.0 2024 08:22 PM 94.0 2024 08:13 AM 98.1 F 78 15 104 56 2024 08:12 AM 98.0 2024 06:16 PM 93.0 2024 12:23 PM 93.0 2024 06:00 PM 96.0 2024 11:36 AM 98.0 2024 09:49 AM 97.4 F 65 18 132 62 2024 08:03 AM 98.7 F 67 16 97 43 2024 07:23 PM 98.1 F 57 16 112 62 2024 11:09 AM 205.0 lbs 40.0 3 2024 05:11 AM 84 17 2024 10:17 AM 97.4 F 69 18 99 59 2024 07:02 PM 98.6 F 2024 01:49 PM 63 20 2024 08:36 AM 76 20 2024 02:50 PM 97.2 F 116 60 2024 03:11 PM 97.5 F 135 75 2024 02:58 PM 97.2 F 107 56 2024 04:30 PM 207.0 lbs 40.4 2 2024 09:59 AM 97.7 F 102 61 2024 02:29 PM 106 62 2024 07:08 PM 210.6 lbs 41.1 3 Advance Directives Directive Note Do Not Resuscitate (DNR) Insurance Providers Payer Policy type Group Name Group number Policy ID Address Ph one Medicare Part A Medicare Part A [id number] Phone: Fax: Medicare Adv. MAO PDPM - BCBS Like Medicare Part A [id number] [address] [place] [address] Phone: Fax: Outlier - MC Adv Part B - BCBS Like Medicare Part B [id number] [address] [place] [address] Phone: Fax: [place] ([facility]) [id number] Phone: [place]ax[place] ([facility]) [id number] Phone: Fax: Medicaid [place] ([facility]) [id number] Phone: Fax: Private Private Phone: Fax: Private Interest Private Phone: Fax: Patient Liability Private Phone: Fax: Immunizations Vaccine Personal Lines Appraiser Date Status Dose Series Complete COVID-19 Vaccine 03/26/2020 Refused COVID-19 Vaccine 11/09/2024 Refused COVID-19 Vaccine 12/24/2023 Refused COVID-19 Vaccine 10/14/2022 Refused COVID-19 Vaccine 10/02/2022 Refused COVID-19 Vaccine 01/17/2022 Refused Influenza Vaccine Afluria 12/31/2021 Completed Influenza Vaccine 11/09/2024 Refused Influenza Vaccine 12/24/2023 Refused Influenza Vaccine 12/11/2022 Refused Influenza Vaccine 01/03/2021 Refused Pneumococcal Vaccine 11/09/2024 Refused Pneumococcal Vaccine 12/24/2023 Refused Pneumococcal Vaccine 12/11/2022 Refused Pneumococcal Vaccine 12/20/2021 Refused Pneumococcal Vaccine 07/20/2020 Refused RSV Vaccine 11/09/2024 Refused RSV Vaccine 12/24/2023 Refused RSV Vaccine 01/20/2023 Refused Procedures Not available for this record Results Not available for this record Goals Goal Date Adverse drug reactions will be identified with interventions initiated for 120 days from update/last review 02/22/2025 Will adjust to change in rel ationships and accept support from staff for 120days from update/last review AND/OR Will be at ease interacting with others, expressing preferences daily for 120days from update/last review 02/22/2025 Will participate in 2-3 acti vities per week of my preference through next assessment 02/22/2025 Jaylin will maintain adequate o xygenation as demonstrated through oxygen saturation with or without oxygen through next review. 02/22/2025 Michelle will maintain nutritional statu s through next review 02/22/2025 Will be able to express simple wants/nee ds to staff daily 02/22/2025 Resident's skin will remain intact. 01/29 Will have a BM at least ever y 3 days for 120 days since update/last review AND/OR will not experience any complications r/t to colostomy for 120 days from update/ last review AND/OR Will not experience any GI complications for 120 days since update/last review AND/OR Will remain clean, dry between incontinent episodes thru 120days from update/last review 02/22/2025 Advanced directives will be honored as outlined by patient/family on daily basis thru 120days from update/last review 02/22/2025 ADL approaches will meet the resident?s needs to enhance ability, maintain abilities, or provide quality. 02/22/2025 Encounters Admission Date Discharge Date Description MRN Visit Count 11/03/2019 14:09 LTPAC Admission 4101 01
--- OUTSIDE RECORDS SUMMARY | 2025-01-21 00:58 | XMS_ITS | Data Portability ---
Author Organization [place] [facility], [facility] Address [address] [address] [place] [address] Care Team Providers Care Automotive Lot Attendant Name Role Phone VICTORIANO BAKER Primary Care Provider MANDIE Spaulding Financial Processing Clerk Assessment Encounter Date Assessment Date Assessment LastModified by Organization Details LastModified Time 06/14/2024 06/14/2024 I reviewed the patient's recent labs, vital signs, medications, and plan of care. I recommend no other change sat this time. [email or web address] Not available 06/30/2024 12:37:44 10/04/2024 10/04/2024 I reviewed the patient's recent labs, vital signs, medications, and plan of care. I recommend no other change sat this time. [email or web address] Not available 10/24/2024 17:52:04 12/06/2024 12/06/2024 I reviewed the patient's recent labs, vital signs, medications, and plan of care. I recommend no other change sat this time. [email or web address] Not available 12/27/2024 08:27:36 Plan of Treatment Reminders Order Date Submit [...] Name and Address Organization Details Recorded Time Clinical finding Completed 201512/06/2015 Obesity - Status is Inactive ; Recorded 12/06/19 16 7:21AM by Iris Hwang CMT, Annotati on/Adden dum; Promoted ; acuity set as *; Not Available [facility] 3 03:07:59 Heartbur n [id number] Completed 201512/06/2015 Heartbur n - Status is Inactive ; 12/06/19 16 7:21AM by Iris Hwang CMT, Annotati on/Adden dum; Promoted ; acuity set as *; Not Available [facility] 3 03:08:00 Constipa tion [id number] Completed 201512/06/2015 Constipa tion - Status is Inactive ; 12/06/19 16 7:21AM by Iris Hwang CMT, Annotati on/Adden dum; Promoted ; acuity set as *; Not Available [facility] 3 03:08:01 Esophagi tis [id number] Completed 202106/28/2021 ESOPHAGI TIS - Status is Resolved ; Resolved Date: 06/29/19; Recorded 06/29/19 8:26AM by Meri Baker PA-C, Annotati on/Adden dum; Promoted ; acuity set as *; Not Available [facility] 3 03:08:00 Fracture of bone of hip region 926032765 Completed 202106/28/2021 HIP FRACTURE , RIGHT - Status is Resolved ; Resolved Date: 06/29/19; Recorded 06/29/19 8:26AM by Meri Baker PA-C, Annotati on/Adden dum; Promoted ; acuity set as *; Not Available [facility] 3 03:08:00 Benign essentia l hyperten chanelle 4743604 Active 2022 Cheli wang [facility] 3 10:39:01 Hypothyr oidism 35912263 Active 2022 Cheli wang [facility] 3 10:39:26 Acute non-ST segment elevatio n myocardi al infarcti on 561455217 Completed 202205/25/2024 Removal Reason: resolved PATRICIA wang, [facility] 5 20:22:32 Dementia 06704186 Active 2022 Cheli Varma [facility], [facility] 3 10:40:02 Vascular dementia 101877422 Active 2022 Cheli Varma null, [facility] 3 10:40:21 Generali zed anxiety disorder 13691137 Active 2022 Cheli wang, [facility] 3 10:54:58 Chronic depressi on 618665034 Active 2022 Cheli wang, [facility] 3 10:55:28 Hyperlip idemia 97883912 Active 2022 Cheli wang, [facility] 3 10:55:45 Osteoart hritis of knee 776295907 Active 2022 primary; bilatera brandon wang, [facility] 3 10:56:36 Need for personal care assistan ce [id number] 358480 Active 2022 Cheli wang, [facility] 3 10:57:01 Chronic obstruct ruthann pulmonar y disease 85246985 Active 2022 Cheli Varma null, [facility] 3 10:57:16 Chronic diastoli c heart failure 296512444 Active 2022 Cheli Varma null, [facility] 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 3 11:02:04 Candidia sis of skin 31007333 Completed 202205/25/2024 Removal Reason: resolved PATRICIA wang, [facility] 5 20:23:21 Chronic kidney disease stage 3A 161782014 Active 2023 PATRICIA SHOEMAKER null, [facility] 5 20:23:27 Congesti ve heart failure 30751157 Active 2023 PATRICIA SAHARA [facility], [facility] 5 20:23:32 Acute exacerba tion of chronic obstruct ruthann pulmonar y disease 120874008 Completed 202305/25/2024 Removal Reason: resolved PATRICIA SHOEMAKER null, [facility] 5 20:22:46 Frail elderly 295913600 Active 2023 PATRICIA SAHARA null, [facility] 5 20:23:59 Respirat ory distress 247641267 Completed 202405/25/2024 Removal Reason: resolved PATRICIA SHOEMAKER null, [facility] 5 20:24:27 Morbid obesity 138799621 Active 2024 ROSALBA WILSON null, [facility] 05/13/202 5 12:48:28 Difficul ty walking 211041328 Active 2024 [facility] 5 12:48:28 Problem Notes None recorded. Procedures Surgical History Date Name Laterality Status Provider Name and Address Organization Details Recorded Time open repair of ventral hernia completed [facility], LethaLAnastasiia 08/12/2022 09:06:14 open reduction of fracture of ankle with internal fixation completed [facility], [facility] 08/12/2022 09:06:53 total thyroidectomy completed [facility], LethaLBensonCBenson 08/12/2022 09:07:06 cholecystectomy completed [facility], LethaLBensonCBenson 08/12/2022 09:08:21 hysterectomy completed [facility], LethaLBensonCBenson 06/14/2024 14:04:14 Imaging Results None recorded. Procedure Notes None recorded. Medical Equipment None Reported. Allergies Allergen ID Allergen Name Allergen Category Reaction Reaction Severity Criticality Documentation Date Start Date Code Code System Note Provider Name and Address Organization Details Recorded Time 146 Sudafed medicatio n Not available Not available Not available 06/17/2022 11671 2 RxNorm chest press ure [facility] 3 09:47:31 148 Substance with sulfonami de structure and antibacte rial mechanism of action (substanc e) medicatio n Not available Not available Not available 06/17/2022 94388 8003 SNOMED [facility] 3 09:47:46 150 ibuprofen medicatio n Not available Not available Not available 06/17/2022 5640 RxNorm cauti on; CKD [facility] 3 09:52:59 151 iodine medicatio n Not available Not available Not available 06/17/2022 5933 RxNorm [facility] 3 09:54:31 90226 pseudoeph edrine hydrochlo ride medicatio n chest pain Not available Not available 10/25/2022 88630 RxNorm React ion: chest press ure; Comme nt: Recor ded 06/04 7:03A M by Gorge [email or web address] LPN, Offic e Visit ; Smita rod; Aashish frank ce: *; ; ROSALBA wang, [facility] 3 13:19:28 Medications Name Sig Start Date Stop Date Status Note LastModified by Organization Details LastModified Time furosemid e 40 mg tablet active Not Available Not Available Not Available atorvasta tin 40 mg tablet at bedtime active Not Available Not Available No t Available buspirone 5 mg tablet 12/07 completed Not Available Not Available Not Available potassium chloride ER 10 mEq capsule,e xtended release active Not Available Not Available Not Available prednison e 10 mg tablet 06/14 completed Not Available Not Available Not Available [...] every day by oral route at bedtime. active Not Available Not Available No t Available metolazon e 5 mg tablet 10/14 completed Not Available Not Available Not Available Diflucan 150 mg tablet Take 1 tablet every day by oral route as directed for 4 days. 10/14 completed Not Available Not Available Not Available potassium chloride ER 10 mEq tablet,ex tended release active Not Available Not Available Not Available omeprazol e 40 mg capsule,d elayed release two times daily 08/12 completed Not Available Not Available Not Available aspirin 81 mg tablet,de layed release 08/09 completed Not Available Not Available Not Available spironola [...] completed Not Available Not Available Not Available dexametha sone 2 mg tablet 06/14 completed Not Available Not Available Not Available nystatin 100,000 unit/gram topical cream active Not Available Not Available Not Available buspirone 10 mg tablet active Not Available Not Available Not Available omeprazol e 20 mg capsule,d elayed release 04/14 completed Not Available Not Available Not Available aspirin 81 mg chewable tablet active Not Available Not Available Not Available levothyro xine 200 mcg tablet active Not Available Not Available Not Available furosemid e 20 mg tablet active Not Available Not Available Not Available nystatin 100,000 unit/gram topical powder active Not Available Not Available Not Available levofloxa ángela 500 mg tablet 10/14 completed Not Available Not Available Not Available levofloxa ángela 750 mg tablet 04/12 completed Not Available Not Available Not Available albuterol sulfate HFA 90 mcg/actua tion aerosol inhaler active Not Available Not Available Not Available cefdinir 300 mg capsule 06/14 completed Not Available Not Available Not Available doxycycli ne hyclate 100 mg tablet two times daily 06/14 completed Not Available Not Available Not Available ipratropi um bromide 0.02 % solution [...] Not Available Not Available No t Available melatonin at bedtime active 0; Recorded [...] bid x 5 days then 60mg qd; 10574; Recorded 05/22/19 8:45AM by Patricia Shoemaker LPN (Authori zed through Meri Baker PA-C), Annotati on/Adden dum; Refill Quantity : 0; Not Available Not Available Not Available [facility] Levothyro xine Sodium daily 12/16 completed 436; Recorded 04/23/19 23 1:07PM by Patricia Shoemaker LPN (Authori zed through Victoriano Baker MD), Office Visit; Refill Quantity : 0; Not Available Not Available Not Available Miralax two times daily 2019 active 1 capful BID in 6oz water. can increase or decrease dose as needed to keep bm's soft.; 436; Recorded 12/13/19 22 9:18AM by Rosalba Wilson LPN (Authori zed through Victoriano Baker MD), Office Visit; Refill Quantity : 1; Canister ; Not Available Not Available Not Available Potassium Chloride ER in the morning; 1 in the evening 12/16 completed 436; Recorded 06/05/19 23 1:42PM by Patricia Shoemaker LPN (Authori zed through Victoriano Baker MD), Office Visit; Refill Quantity : 30; Tablet; Not Available Not Available Not Available cholecalc iferol (vitamin D3) 1,250 mcg (50,000 unit) capsule 12/07 completed Not Available Not Available Not Available Calmosept ine 0.44 %-20.6 % topical ointment active Not Available Not Available Not Available umeclidin ium 62.5 mcg-vilan terol 25 mcg/actua tion powdr for inhalatio n active Not Available Not Available Not Available Anoro Ellipta daily 12/16 completed 436; Recorded 08/11/19 20 4:49PM by Patricia Shoemaker LPN (Authori zed through Victoriano Baker MD), Office Visit; Refill Quantity : 1; Inhaler; Not Available Not Available Not Available Paxlovid 300 mg (150 mg x 2)-100 mg tablets in a dose pack 03/08 completed Not Available Not Available Not Available Paxlovid 150 mg-100 mg tablets in a dose pack (Moderate Renal Dose) 04/14 completed Not Available Not Available Not Available Vitals Date Recorded Body height Oxygen saturation Oxygen saturation in Arterial blood by Pulse oximetry Heart rate Respiratory rate Body temperature Systolic And Diastolic Provider Name and Address Organization Details Last Updated DateTime 5 154.94 cm 93 % 93 % 78 /min 21 /min 98.6 [degF] 124/61 mm[Hg] PATRICIA SHOEMAKER [facility] 5 12:12:20 Date Recorded Body height Body mass index (BMI) Body weight Oxygen saturation Oxygen saturation in Arterial blood by Pulse oximetry Heart rate Respiratory rate Body temperature Systolic And Diastolic Provider Name and Address Organization Details Last Updated DateTime 5 154.94 cm 37.2 kg/m2 66101.7 g 94 % 94 % 78 /min 21 /min 98.6 [degF] 124/61 mm[Hg] [facility] 5 13:58:35 Date Recorded Body height Body mass index (BMI) Body weight Oxygen saturation Oxygen saturation in Arterial blood by Pulse oximetry Heart rate Respiratory rate Body temperature Systolic And Diastolic Provider Name and Address Organization Details Last Updated DateTime 5 154.94 cm 38.5 kg/m2 15704.8 4 g 93 % 93 % 76 /min 16 /min 97.3 [degF] 103/65 mm[Hg] [facility] 5 12:47:27 Date Recorded Body height Body mass index (BMI) Body weight Oxygen saturation Oxygen saturation in Arterial blood by Pulse oximetry Heart rate Respiratory rate Body temperature Systolic And Diastolic Provider Name and Address Organization Details Last Updated DateTime 5 154.94 cm 39.3 kg/m2 50322.2 1 g 94 % 94 % 72 /min 18 /min 97.1 [degF] 124/59 mm[Hg] [facility] 5 09:30:50 Date Recorded Body height Body mass index (BMI) Body weight Oxygen saturation Oxygen saturation in Arterial blood by Pulse oximetry Heart rate Respiratory rate Body temperature Systolic And Diastolic Provider Name and Address Organization Details Last Updated DateTime 154.94 cm 39.1 kg/m2 55911.6 2 g 97 % 97 % 82 /min 20 /min 97.2 [degF] 107/56 mm[Hg] ROSALBA WILSON [facility] 11:52:10 Social History Question Answer Notes LastModified by [employer] Details LastModified Time Tobacco Smoking Status Never Smoker ROSALBA wang [facility] 08/12/2022 09:05:35 What Was The Date Of Your Most Recent Tobacco Screening? 10/04/2024 [email or web address] Information not available 10/04/2024 Sex: Unknown Functional Status Question Answer Note LastModified by [employer] Details LastModified Time Do you use any illicit or recreational drugs? No [email or web address] Information not available 08/12/2022 Do you or have you ever used any other forms of tobacco or nicotine? No [email or web address] Information not available 12/16/2022 What is your level of alcohol consumption? None [email or web address] Information not available 08/12/2022 Do you or have you ever used any nicotine-free cigarettes, vape, or chewing tobacco? No [email or web address] Information not available 04/12/2024 Mental Status None recorded. Family History Relationship Description Onset Age of this Age Resolved Age Notes LastModified by Organization Details LastModified Time Mother Cerebrovascu lar accident [email or web address] Not available 13:21:49 Mother Type 2 diabetes mellitus [email or web address] Not available 12/16 13:21:57 Maternal Aunt Cerebrovascu lar accident [email or web address] Not available 13:22:07 Medical History No medical history recorded. Gynecological HistoryNo gynecological history recorded. Obstetrics History GPAL:G 0 P 0 0 0 0 Immunizations Vaccine Type Date Status Note Provider Nam e and Address Organization Details Recorded Time pneumococcal polysaccharide PPV23 4 completed ROSALBA wang [facility] 10/14/2022 08:43:02 Influenza, split virus, trivalent, preservative 0 completed Not Available [facility] 04/29/2023 11:50:33 Influenza, split virus, trivalent, preservative 0 completed Not Available [facility] 04/29/2023 11:50:33 Pneumococcal conjugate PCV 13 0 completed Not Available [facility] 04/29/2023 11:50:33 Past Encounters Encounter ID Performer Location Encounter Start Date Encounter Closed Date Diagnosis/Indication Diagnosis SNOMED-CT Code Diagnosis ICD10 Code Diagnosis IMO Codes Diagnosis Note [id number] Victoriano Baker MD [facility] ([facility]) [address] [place] [address] [id number] 5 06/17/2022 08:42:20 08/12/2022 15:51:54 Dementia 20492899 F03.90 Dyspnea 380979793 R06.02 [id number] MERI BAKER PA-C [facility] ([facility]) [address] [place] [address] [id number] 5 08/06/2022 11:50:25 08/21/2022 14:13:41 Candidiasis of skin 32787812 B37.2 Acute exac erbation of chronic obstructive pulmonary disease 818158562 J44.1 Hospital i npatient stay within past 30 days 1137783538 106 Z76.89 [id number] Victoriano Baker MD [facility] ([facility]) [address] [place] [address] [id number] 5 08/12/2022 08:05:36 08/12/2022 19:28:13 Hypothyroidism 05294571 E03.9 Chronic ob structive pulmonary disease 91186117 J44.9 Benign ess ential hypertension 5298979 I10 Hyperlipidemia 14210437 E78.5 Vascular dementia 947207 004 F01.54 [id number] MERI BAKER PA-C [facility] ([facility]) [address] [place] [address] [id number] 5 09/10/2022 14:39:38 09/22/2022 18:13:06 Cough 09883005 R05.9 CHEST XRAY,CBC/C MP/BNP/DUO NEBS QID X 7 DAYS,/DOXY CYCLINE 100MG BID X 7 DAYS, PREDNISONE 40MG QD X 5 DAYS,/ST EVAL Acute exac erbation of chronic obstructive pulmonary disease 604919285 J44.1 Major depr essive disorder 519355339 F32.9 Chronic di astolic heart failure 631852252 I50.32 Chronic ki dney disease stage 3A 236486211 N18.31 Dementia w ith behavioral disturbance 5441100417 103 F01.C11 ATIVAN .5MG QD PRN reinstated due increased aggitation and tearfulnes s. [id number] Victoriano Baker MD [facility] ([facility]) [address] [place] [address] 5 10/14/2022 08:16:13 10/14/2022 13:17:06 Chronic diastolic heart failure 168261746 I50.32 start aldactoned c potassiumm onitor bp Chronic ob structive pulmonary disease 87167420 J44.9 Generalize d anxiety disorder 23385223 F41.1 Hypothyroidism 56551774 E03.9 Dementia 70666838 F03.90 [id number] Victoriano Baker MD [facility] ([facility]) [address] [place] [address] 5 12/16/2022 07:54:20 12/23/2022 15:33:26 Essential hypertension 00885922 I10 Hypothyroidism 82146867 E03.9 Dementia 09507404 F03.90 [id number] Victoriano Baker MD [facility] ([facility]) [address] [place], [place] [id number] 02/10/2023 08:26:17 02/19/2023 07:49:37 COVID-19 146697823 U07.1 no focal deficits alert and at baselinest ateno signs ofrespirat ory compromise or dvt/pe. will continue to monitor [id number] Victoriano Baker MD [facility] ([facility]) [address] [place], [place] [id number] 5 04/14/2023 08:50:32 04/15/2023 16:47:02 Benign essential hypertension 5163711 I10 Chronic depression 37434 0009 F32.A Chronic di astolic heart failure 310422197 I50.32 start aldactoned c potassiumm onitor bp Chronic ob structive pulmonary disease 58712783 J44.9 Generalize d anxiety disorder 61931274 F41.1 Hyperlipidemia 37699786 E78.5 Hypothyroidism 05748091 E03.9 [facility] for [facility] assistance [id number] 3514742 Z74.1 Vascular dementia 465895 004 F01.54 Hypertensi ve heart and renal disease with (congestive) heart failure 340015806 I13.0 Morbid obesity 741461792 E66.01 I reviewed the patient's recent labs, vital signs, medication s, and plan of care. I recommend no other change sat this time. Chronic ki dney disease stage 3A 117918391 N18.31 [id number] MERI BAKER PA-C [facility] ([facility]) [address] [place] [address] [id number] 5 04/29/2023 11:50:03 05/13/2023 06:46:10 Candidiasis of skin 50974281 B37.2 INTERDRY SCHEDULE Vascular dementia 228325 004 F01.54 Chronic ob structive pulmonary disease 63459419 J44.9 NEB TREATMENTS BID [id number] MERI BAKER PA-C [facility] ([facility]) [address] [place] [address] [id number] 5 06/03/2023 11:55:30 06/07/2023 20:20:04 Congestive heart failure 45101678 I50.9 lasix 40mg qd Pneumonia 806110105 J18. 9 right upper lobe, doxy, cefdinir, positive for MRSA per [facility] discharge plan Hospital i npatient stay within past 30 days 7509760273 106 Z76.89 [id number] Victoriano Baker MD [facility] ([facility]) [address] [place] [address] [id number] 5 06/05/2023 08:28:27 06/10/2023 14:24:30 Benign essential hypertension 3051690 I10 Chronic depression 53335 0009 F32.A Chronic di astolic heart failure 521603038 I50.32 Chronic ob structive pulmonary disease 64042673 J44.9 Generalize d anxiety disorder 17983375 F41.1 Hypothyroidism 12372803 E03.9 Community acquired pneumonia 162181065 J18.9 [id number] Victoriano Baker MD [facility] ([facility]) [address] [place] [address] [id number] 5 08/11/2023 08:48:30 08/11/2023 14:47:51 Benign essential hypertension 0855326 I10 Chronic depression 21050 0009 F32.A Chronic di astolic heart failure 565787990 I50.32 Chronic ob structive pulmonary disease 55514679 J44.9 Generalize d anxiety disorder 16456537 F41.1 Hypothyroidism 62917512 E03.9 Community acquired pneumonia 730130622 J18.9 [id number] MERI BAKER PA-C [facility] ([facility]) [address] [place] [address] [id number] 5 08/19/2023 13:56:36 10/14/2023 12:01:01 Congestive heart failure 97927255 I50.9 lasix 40mg today IM x1CBC/CMP/ BNP/CHEST XRAY Chronic ob structive pulmonary disease 95351212 J44.9 DUO NEB TREATMENTS QIDD, PREDNISONE 40MG QD X 5 DAYS [id number] MERI BAKER PA-C [facility] ([facility]) [address] [place] [address] [id number] 5 08/26/2023 12:22:25 10/14/2023 12:22:16 Acute exacerbation of chronic obstructive pulmonary disease 307209032 J44.1 STABLE CONTINUE WITH NEBS [id number] MERI BAKER PA-C [facility] ([facility]) [address] [place] [address] [id number] 5 09/30/2023 14:25:52 10/15/2023 15:21:43 Post-discharge follow-up 440965646 Z09 medical records and meds reviewed. Congestive heart failure 83145502 I50.9 exacerbati on increase lasix to 80mg x 3 days [id number] Victoriano Baker MD [facility] ([facility]) [address] [place] [address] [id number] 5 10/06/2023 08:13:56 10/14/2023 14:29:01 Generalized anxiety disorder 50922381 F41.1 Chronic ob structive pulmonary disease 19781980 J44.9 Vascular dementia 059983 004 F01.54 [id number] Victoriano Baker MD [facility] ([facility]) [address] [place] [address] [id number] 5 12/08/2023 08:40:34 12/09/2023 14:49:49 Benign essential hypertension 8840943 I10 Chronic di astolic heart failure 588073729 I50.32 Chronic ob structive pulmonary disease 48988669 J44.9 Generalize d anxiety disorder 07235561 F41.1 Hypothyroidism 36476300 E03.9 Frail elderly 085596612 R54 Dependence on supplemental oxygen 6283379208 07 Z99.81 [id number] MERI BAKER PA-C [facility] ([facility]) [address] [place] [address] [id number] 5 12/23/2023 13:25:02 02/01/2024 10:05:58 Abdominal pain 20372293 R10.9 pain is resolved for now. Will continue to monitor vitals and symptoms [id number] Victoriano Baker MD [facility] ([facility]) [address] [place], [place] [id number] 5 02/09/2024 08:15:27 03/09/2024 08:11:35 Benign essential hypertension 5493455 I10 Chronic di astolic heart failure 988760454 I50.32 Chronic ob structive pulmonary disease 02531604 J44.9 Hypothyroidism 20101502 E03.9 Vascular dementia 340227 004 F01.54 [id number] MERI BAKER PA-C [facility] ([facility]) [address] [place] [address] [id number] 5 02/24/2024 12:21:18 03/09/2024 09:14:33 Acute exacerbation of chronic obstructive pulmonary disease 681196044 J44.1 taper Prednisone 30mg x 3 days, 20mg x 3 days,10mg x 3 dayswill finish doxycyclin e in 2 days. Her edema is resolved. back to her maintance dose of lasix.CXR and labs reviewed. [id number] MERI BAKER PA-C [facility] ([facility]) [address] [place] [address] [phone] 5 03/16/2024 15:05:22 04/22/2024 15:59:09 Acute exacerbation of chronic obstructive pulmonary disease [id number] J44.1 Her edema is resolved. back to her maintance dose of lasix.CXR and labs reviewed. levaquin 750mg qd x 5 days [id number] Victoriano Baker MD [facility] ([facility]) [address] [place] [address] [phone] 5 04/12/2024 08:53:16 04/15/2024 15:54:59 Benign essential hypertension 4924971 I10 Chronic depression 08102 0009 F32.A Chronic di astolic heart failure 985770003 I50.32 Chronic ob structive pulmonary disease 96812414 J44.9 Dementia 29629805 F03.90 Generalize d anxiety disorder 19169134 F41.1 Hyperlipidemia 65970668 E78.5 Need for p ersonal care assistance [id number] 5555494 Z74.1 Vascular dementia 959834 004 F01.54 [id number] MERI BAKER PA-C [facility] ([facility]) [address] [place] [address] [phone] 5 05/20/2024 16:52:18 07/05/2024 13:40:01 Respiratory distress [id number] R06.03 to er pt and family agree to send her to ER. I suspect she has influenza exacerbati ng her COPD Acute exac erbation of chronic obstructive pulmonary disease 910239327 J44.1 [id number] MERI BAKER PA-C [facility] ([facility]) [address] [place] [address] [phone] 06/01/2024 12:00:00 07/05/2024 13:42:30 Vdcfh-pm-gajfyye respiratory failure 59783181 J96.20 SECONDARY TO INFLUENZA Arecords reviewed. she is finishing her antibiotic and steroid taper. no other med changes madeShe is back to her baseline. Hospital i npatient stay within past 30 days [id number] 106 Z76.89 Influenza caused by Influenza A virus 398218790 J09.X2 [id number] Victoriano Baker MD [facility] ([facility]) [address] [place] [address] [phone] 06/14/2024 09:14:28 06/30/2024 14:12:52 Chronic depression 585516382 F32.A Chronic ki dney disease stage 3A 963805500 N18.31 Hypothyroidism 96774169 E03.9 Generalize d anxiety disorder 22453668 F41.1 Need for p ersonal care assistance [id number] 4977985 Z74.1 Morbid obesity 646157377 E66.01 I reviewed the patient's recent labs, vital signs, medication s, and plan of care. I recommend no other change sat this time. Difficulty walking 63169 2002 R26.2 Frail elderly 277191829 R54 Reduced mobility 1039189 Z74.09 Dependence on wheel chair 638047933 Z99.3 [id number] Victoriano Baker MD [facility] ([facility]) [address] [place] [address] [phone] 08/09/2024 11:40:59 08/19/2024 17:15:57 Frail elderly 113613243 R54 Dementia 67624986 F03.90 [id number] Victoriano Baker MD [facility] ([facility]) [address] [place] [address] [phone] 10/04/2024 09:06:30 10/25/2024 12:45:59 [id number] Victoriano Baker MD [facility]) [address] [place] [address] [phone] 5 12/06/2024 07:58:32 12/27/2024 10:38:30 Generalized anxiety disorder 00159898 F41.1 Health Concerns Section Related Observation LastModified by Organization Detai ls LastModified Time None Recorded Concern Status LastModified by Organization Details LastModified Time None Recorded Advance Directives Directive None Recorded Payers Insurance Date Sequence Insurance Name Policy Number Policy Castro Covered Member ID Castro Member ID Guarantor Name 12/05/2024 [place] [facility] Michelle Becerra [id number] Michelle Becerra 03/29/2024 1 [place]MED[place]AC[place]/ ADVANTAGE - PPO) [id number] Michelle Becerra [id number] Michelle Becerra 12/05/2024 2 [place] Michelle Becerra [id number] Michelle Becerra 12/27/2024 1 [place] - [place]) [id number] Michelle Becerra [id number] Michelle Becerra Notes Date Note Type Note Provider Name and Address Organization Details Recorded Time 06/02/19 25 text/htm l DyspneaReported by PatientHPIFor context, patient reportsafter respiratory illness. For aggravating factors, patient reportsactivity. For associated symptoms, patient reportswheezingandfatiguebut reportsno chest pain,no palpitations,no hemoptysis,no weight gain, andno dyspepsia. For onset/timing, patient reportsdaily,at rest, andwith exertion. For pulmonary disease history, patient reportshistory of pulmonary diseaseandcopd. For alleviating factors, patient reportsrest,oxygen,inhaler, anddiuretic. [facility] FOLLOW UPPt is back from recent admission from [facility] where she was dx with influenza A which caused acut on chronic respiratory failureshe responded to tx and is back at [facility] memory care unit at her baseline. Victoriano Baker MD [address] [place] [address], [phone], [facility], [facility] 07/05/2024 12:24:17 06/15/19 25 text/htm l Hypertension IM/FMReported by PatientHPIFor duration, patient reportshtn present for ___ years. For onset/timing, patient reportsgradual onset. For alleviating factors, patient reportsmedication. For self care, patient reportsnon-smoker. Generalized Anxiety DisorderReported by PatientHPIFor onset/timing, patient reports___ years. For severity, patient reportssevere. For alleviating factors, patient reportspsychotropic medicationandrelaxation techniques. HypothyroidReported by PatientHPIFor duration, patient reports>12 months. For treatment, patient reportstaking medication as prescribed.she reports she is not anxious at this time DementiaReported by PatientHPIFor associated symptoms, patient reportsanxiety. For quality, patient reportsshort term memory loss,inability to learn or remember new information,forgetting names or everyday words,difficulty communicating,disorientation to place, anddisorientation to time. For severity, patient reportssevere. For duration, patient reports___ years. For onset/timing, patient reportsinsidious. For context, patient reportsno alcohol use.ROS as noted in the HPI Patient seen today by Dr. Baker at [facility] Victoriano Baker MD [address] [place] [address], [phone], [facility] 06/30/2024 12:38:04 08/10/19 25 text/htm l Hypertension IM/FMReported by PatientHPIFor duration, patient reportshtn present for ___ years. For onset/timing, patient reportsgradual onset. For alleviating factors, patient reportsmedication. For self care, patient reportsnon-smoker. Generalized Anxiety DisorderReported by PatientHPIFor onset/timing, patient reports___ years. For severity, patient reportssevere. For alleviating factors, patient reportspsychotropic medicationandrelaxation techniques. HypothyroidReported by PatientHPIFor duration, patient reports>12 months. For treatment, patient reportstaking medication as prescribed.she reports she is not anxious at this time DementiaReported by PatientHPIFor associated symptoms, patient reportsanxiety. For quality, patient reportsshort term memory loss,inability to learn or remember new information,forgetting names or everyday words,difficulty communicating,disorientation to place, anddisorientation to time. For severity, patient reportssevere. For duration, patient reports___ years. For onset/timing, patient reportsinsidious. For context, patient reportsno alcohol use.ROS as noted in the HPI Patient seen today by Dr. Baker at [facility] Victoriano Baker MD [address] [place], [address], [facility] 08/19/2024 15:15:16 10/05/19 25 text/htm l Hypertension IM/FMReported by PatientHPIFor duration, patient reportshtn present for ___ years. For onset/timing, patient reportsgradual onset. For alleviating factors, patient reportsmedication. For self care, patient reportsnon-smoker. Generalized Anxiety DisorderReported by PatientHPIFor onset/timing, patient reports___ years. For severity, patient reportssevere. For alleviating factors, patient reportspsychotropic medicationandrelaxation techniques. HypothyroidReported by PatientHPIFor duration, patient reports>12 months. For treatment, patient reportstaking medication as prescribed.she reports she is not anxious at this time DementiaReported by PatientHPIFor associated symptoms, patient reportsanxiety. For quality, patient reportsshort term memory loss,inability to learn or remember new information,forgetting names or everyday words,difficulty communicating,disorientation to place, anddisorientation to time. For severity, patient reportssevere. For duration, patient reports___ years. For onset/timing, patient reportsinsidious. For context, patient reportsno alcohol use.ROS as noted in the [facility] Patient seen today by Dr. Baker at [facility] Victoriano Baker MD [address] [place], [phone], [facility] 10/24/2024 17:52:19 12/07/19 25 text/htm l Hypertension IM/FMReported by PatientHPIFor duration, patient reportshtn present for ___ years. For onset/timing, patient reportsgradual onset. For alleviating factors, patient reportsmedication. For self care, patient reportsnon-smoker. Generalized Anxiety DisorderReported by PatientHPIFor onset/timing, patient reports___ years. For severity, patient reportssevere. For alleviating factors, patient reportspsychotropic medicationandrelaxation techniques. HypothyroidReported by PatientHPIFor duration, patient reports>12 months. For treatment, patient reportstaking medication as prescribed.she reports she is not anxious at this time DementiaReported by PatientHPIFor associated symptoms, patient reportsanxiety. For quality, patient reportsshort term memory loss,inability to learn or remember new information,forgetting names or everyday words,difficulty communicating,disorientation to place, anddisorientation to time. For severity, patient reportssevere. For duration, patient reports___ years. For onset/timing, patient reportsinsidious. For context, patient reportsno alcohol use.ROS as noted in the [facility] Patient seen today by Dr. Baker at [facility] Victoriano Baker MD [address] [place], [address], [facility] 12/27/2024 08:27:47 OBGyn Episode No OBEpisode recorded.
--- OUTSIDE RECORDS SUMMARY | 2025-01-21 00:58 | XMS_ITS | Encounter Summary ---
Author Organization [facility] Address [address] [place] [address] Care Team Providers Care Tank Erector Name Role Phone Viktor Baker MD Primary Care Provider [phone] Encounter Details Date Type Department Care Team (Latest Contact Info) Description 12/24/[address] [facility] Gastroenterology- [place] 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
--- OUTSIDE RECORDS SUMMARY | 2025-01-21 00:58 | XMS_ITS | Encounter Summary ---
Author Organization [facility] Address [address] [place] [address] Care Team Providers Care Clinical Auditor Name Role Phone Viktor Baker MD Primary Care Provider Encounter Details Date Type Department Care Team (Latest Contact Info) Description 12/15/2006 Outpatient Historical [facility] Ear, Nose and Throat [address] [place] [address] Ti Ward MD [address] [place] [address] Dysphagia (Primary Dx) Social History Tobacco Use Types Packs/Day Years Used Date Smoking Tobacco: Never Assessed Comments Unknown Sex and Gender Information Value Date Recorded Sex Assigned at Not on file Legal Sex Female 3:13 AM MANAGER FREELANCE Gender Identity Not on file Sexual Orientation Not on file documented as of this encounter Plan of Treatment Not on file documented as of this encounter Visit Diagnoses Diagnosis Dysphagia- Primary documented in this encounter Care Teams Clinical Auditor Relationship Specialty Start Date End Date Viktor Baker MD [address] [place] [phone] PCP - General Family Practice 01/27/11 documented as of this encounter
--- OUTSIDE RECORDS SUMMARY | 2025-01-21 00:58 | XMS_ITS | Encounter Summary ---
Author Organization [facility] Address [address] [place] [address] Care Team Providers Care Domestic Technician Name Role Phone Viktor Baker MD Primary Care Provider [phone] Encounter Details Date Type Department Care Team (Latest Contact Info) Description 11/18/2006 Outpatient Historical [facility] Ear, Nose and Throat [address] [place] [address] Ti Ward MD [address] [place] [address] Dysphagia (Primary Dx) Social History Tobacco Use Types Packs/Day Years Used Date Smoking Tobacco: Never Assessed Comments Unknown Sex and Gender Information Value Date Recorded Sex Assigned at Not on file Legal Sex Female 3:13 AM PERSONNEL PLACEMENT SPECIALIST Gender Identity Not on file Sexual Orientation Not on file documented as of this encounter Plan of Treatment Not on file documented as of this encounter Visit Diagnoses Diagnosis Dysphagia- Primary documented in this encounter Care Teams Domestic Technician Relationship Specialty Start Date End Date Viktor Baker MD [address] [place] [phone] PCP - General Family Practice 01/27/11 documented as of this encounter
--- OUTSIDE RECORDS SUMMARY | 2025-01-21 00:58 | XMS_ITS | Encounter Summary ---
Author Organization [facility] Address [address] [place] [address] Care Team Providers Care Tallow Pumper Name Role Phone Viktor Baker MD Primary Care Provider [phone] Encounter Details Date Type Department Care Team (Latest Contact Info) Description 12/15/2006 Outpatient Historical [facility] Imaging Services [address] [place] [phone] Ti Ward MD [address] [place] [address] Dysphagia (Primary Dx) Social History Tobacco Use Types Packs/Day Years Used Date Smoking Tobacco: Never Assessed Comments Unknown Sex and Gender Information Value Date Recorded Sex Assigned at Not on file Legal Sex Female 3:13 AM SATURATOR Gender Identity Not on file Sexual Orientation [...] By: Kuldeep Molina M.D. Date Signed: 12/15/06 [facility] Procedure Note 02/18/2009 Exam: Barium SwallowDate/Time of [...] By: Kuldeep Molina M.D. Date Signed: 12/15/06 [facility] Ti Ward MD DIAGNOSTIC IMAGING ORDERABLES F inal Result documented in this encounter Visit Diagnoses Diagnosis Dysphagia- Primary documented in this encounter Care Teams Tallow Pumper Relationship Specialty Start Date End Date Viktor Baker MD [address] [phone] PCP - General Family Practice 01/27/11 documented as of this encounter
--- OUTSIDE RECORDS SUMMARY | 2025-01-21 00:59 | XMS_ITS | Encounter Summary ---
Author Organization [facility] Address [address] [place] [address] Care Team Providers Care Silhouette Artist Name Role Phone Viktor Baker MD Primary Care Provider Encounter Details Date Type Department Care Team (Latest Contact Info) Description 12/31/2006 Outpatient Historical [facility] Gastroenterology- [place] [address] [place] [address] Leonid Hope MD [address] [place] [address] Esophageal Stricture (Primary Dx); Congen Esoph Fistula/Atres; Abn Findings-GI Tract Social History Tobacco Use Types Packs/Day Years Used Date Smoking Tobacco: Never Assessed Comments Unknown Sex and Gender Information Value Date Recorded Sex Assigned at Not on file Legal Sex Female 3:13 AM BAG BUILDER Gender Identity Not on file Sexual Orientation [...] tract documented in this encounter Care Teams Silhouette Artist Relationship Specialty Start Date End Date Viktor Baker MD [address] [place] [address] PCP - General Family Practice 01/27/11 documented as of this encounter
--- OUTSIDE RECORDS SUMMARY | 2025-01-21 00:59 | XMS_ITS | Encounter Summary ---
Author Organization [facility] Address [address] [place] [address] Care Team Providers Care Missile Inspector Preflight Name Role Phone Viktor Baker MD Primary Care Provider [phone] Encounter Details Date Type Department Care Team (Latest Contact Info) Description 03/06/2004 Outpatient Historical [facility] Endoscopy [place] [address] [place] [address] Leonid Hope MD [address] [place] [address] SCREENING MAL NEOP-COLON (Primary Dx) Social History Tobacco Use Types Packs/Day Years Used Date Smoking Tobacco: Never Assessed Comments Unknown Sex and Gender Information Value Date Recorded Sex Assigned at Not on file Legal Sex Female 3:13 AM DIRECTOR OF HOUSING AND ENERGY SERVICES Gender Identity Not on file Sexual Orientation Not on file documented as of this encounter Plan of Treatment Not on file documented as of this encounter Visit Diagnoses Diagnosis Special screening for malignant neoplasms, colon- Primary documented in this encounter Care Teams Missile Inspector Preflight Relationship Specialty Start Date End Date Viktor Baker MD [address] [place] [address] PCP - General Family Practice 01/27/11 documented as of this encounter
--- OUTSIDE RECORDS SUMMARY | 2025-01-21 00:59 | XMS_ITS | Encounter Summary ---
Author Organization [facility] Address [address] [place] [address] Care Team Providers Care Board Hammer Operator Name Role Phone Viktor Baker MD Primary Care Provider [phone] Encounter Details Date Type Department Care Team (Late st Contact Info) Description 11/10/2019 Lab Requisition [facility] Laboratory Services [address] [place] [address] Meri Baker, JOYCE [address] [place] [phone] Social History Tobacco Use Types Packs/Day Years Used Date Smoking Tobacco: Never Smokeless Tobacco: Never Alcohol Use Standard Drinks/Week Comments No 0 (1 standard drink = 0.6 oz pur e alcohol) Comments No Sex and Gender Information Value Date Recorded Sex Assigned at Not on file Legal Sex Female 3:13 AM ERGONOMICS CONSULTANT Gender Identity Not on file Sexual Orientation [...] 409 50-1,200 mOsm/kg 11/10/2019 2:52 PM CDT [facility] Urine URINE SPECIMEN OBTAINED BY CLEAN CATCH PROCEDURE / Unknown Collection / Unknown 11/09/2019 2:00 PM CDT 11/10/2019 2:20 PM CDT Narrative [facility] - 11/10/2019 2:52 PM CDT Reference range: 50-1200 mOsm/kg H2O, depending on fluid intake. us Meri COOK URINE ORDERABLES Final Result Performing Organization Address City/[facility]/ZIP Co de Phone Number [facility] [address] [place] [address] * SODIUM, RANDOM URINE (11/09/2019 2:00 PM CDT) [facility] Signature SODIUM, URINE 93 mmol/L 11/10/2019 2:48 PM CDT [facility] Comment:Reference range not established Urine URINE SPECIMEN OBTAINED BY CLEAN CATCH PROCEDURE / Unknown Collection / Unknown 11/09/2019 2:00 PM CDT 11/10/2019 2:20 PM CDT us Meri COOK URINE ORDERABLES Final Result Performing Organization Address [facility] Co de Phone Number [phone] [place] [address] documented in this encounter Visit Diagnoses Not on filedocumented in this encounter Care Teams Board Hammer Operator Relationship Specialty Start Date End Date Viktor Baker MD [address] [address] PCP - General Family Practice 01/27/11 documented as of this encounter
--- OUTSIDE RECORDS SUMMARY | 2025-01-21 00:59 | XMS_ITS | Encounter Summary ---
Author Organization [facility] Address [address] [place] [address] Care Team Providers Care Compressed Gas Equipment Mechanic Name Role Phone Viktor Baker MD Primary Care Provider [phone] Encounter Details Date Type Department Care Team (Latest Contact Info) Description 10/08/2006 Outpatient Historical [facility] Cardiac Drums Teacher [address] [place] [address] Davy Monson MD [address] [address] Coronary Atherosclerosis of [place] Coronary Artery (Primary Dx) Social History Tobacco Use Types Packs/Day Years Used Date Smoking Tobacco: Never Assessed Comments Unknown Sex and Gender Information Value Date Recorded Sex Assigned at Not on file Legal Sex Female 3:13 AM LAND DEVELOPMENT PROJECT MANAGER Gender Identity Not on file Sexual Orientation [...] MD CHEMISTRY ORDERABLES Edited Performing Organization Address [facility] Phone Number INTERFACE SYSTEM Refer to clinic/hospital [...] INTERFACE SYSTEM 10/08/2006 6:57 AM CDT Davy Monosn MD CHEMISTRY ORDERABLES Edited Performing Organization Address [facility] de Phone Number INTERFACE SYSTEM Refer to clinic/hospital department * PT AND APTT (10/08/2006 6:57 AM CDT) PROTIME 14.7 13.0 - 15.7 Secs INTERFACE SYSTEM Comment: As of 06 note change in normal range. INR 1.0 INTERFACE SYSTEM Comment: Expected Values for INR: DVT/PE Goal INR 2.5; range 2.0 - 3.0 Valve Replacement Tissue Goal INR 2.5; range 2.0 - 3.0 Mechanical Goal INR 3.0; range 2.5 - 3.5 POST-KS Goal INR 2.5; range 2.0 - 3.0 or Goal 3.0; range 2.5 - 3.5 Atrial Fibrillation Goal INR 2.5; range 2.0 - 3.0 Ischemic Stroke Goal INR 2.5; range 2.0 - 3.0 For additional information see Guidelines for Anticoagulation available from the pharmacy [facility] PTT 28.2 21.6 - 35.6 Secs INTERFACE SYSTEM Comment: Therapeutic Range: Hi-level PE/DVT heparin protocol 80.1 -95.0 sec Lo-level PE/DVT heparin protocol 67.1 - 80.0 sec Cardiac Heparin Protocol 67.1 - 85.0 sec Neuro Heparin Protocol 67.1 - 80.0 sec As of 03/05/2006 note change in APTT Normal Range. 10/08/2006 6:57 AM CDT Davy Monson MD HEMATOLOGY ORDERABLES Edited INTERFACE [...] encounter Visit Diagnoses Diagnosis Coronary atherosclerosis of [place] coronary artery- Primary documented in this encounter Care Teams Compressed Gas Equipment Mechanic Relationship Specialty Start Date End Date Viktor Baker MD [address] [place] [phone] PCP - General Family Practice 01/27/11 documented as of this encounter
--- OUTSIDE RECORDS SUMMARY | 2025-01-21 00:59 | XMS_ITS | Encounter Summary ---
Author Organization [facility] Address [address] [place] [address] Care Team Providers Care Manager Hardware Name Role Phone Viktor Baker MD Primary Care Provider [phone] Encounter Details Date Type Department Care Team (Latest Contact Info) Description 09/29/2006 Outpatient Historical [facility] Cardiology- [place] [address] [place] [address] Davy Monson MD [address] [facility] [address] [place] [address] Unspecified Hypertensive Heart Disease with Heart Failure (CMS/HCC) (Primary Dx); Other and Unspecified Angina Pectoris; DM w/o Complication Type II (CMS/HCC); Pure Hypercholesterolem Social History Tobacco Use Types Packs/Day Years Used Date Smoking Tobacco: Never Assessed Comments Unknown Sex and Gender Information Value Date Recorded Sex Assigned at Not on file Legal Sex Female 3:13 AM GROUP ACCOUNT DIRECTOR Gender Identity Not on file Sexual Orientation [...] hypercholesterolemia documented in this encounter Care Teams Manager Hardware Relationship Specialty Start Date End Date Viktor Baker MD [address] [place] [address] PCP - General Family Practice 01/27/11 documented as of this encounter
--- OUTSIDE RECORDS SUMMARY | 2025-01-21 00:59 | XMS_ITS | Encounter Summary ---
Author Organization [facility] Address [address] [place] [address] Care Team Providers Care Jumpbasting Machine Operator Name Role Phone Viktor Baker MD Primary Care Provider [phone] Encounter Details Date Type Department Care Team (Latest Contact Info) Description 03/06/2004 Outpatient Historical [facility] Gastroenterology- [place] [address] [place] [address] Leonid Hope MD [address] [place] [address] SCREENING MAL NEOP-COLON (Primary Dx); Esophageal stricture; DYSPHAGIA Social History Tobacco Use Types Packs/Day Years Used Date Smoking Tobacco: Never Assessed Comments Unknown Sex and Gender Information Value Date Recorded Sex Assigned at Not on file Legal Sex Female 3:13 AM ROOM SERVICE FOOD SERVICE ATTENDANT Gender Identity Not on file Sexual Orientation Not on file documented as of this encounter Plan of Treatment Not on file documented as of this encounter Visit Diagnoses Diagnosis Special screening for malignant neoplasms, colon- Primary Esophageal stricture Stricture and stenosis of esophagus Dysphagia documented in this encounter Care Teams Jumpbasting Machine Operator Relationship Specialty Start Date End Date Viktor Baker MD [address] [place] [address] PCP - General Family Practice 01/27/11 documented as of this encounter
--- OUTSIDE RECORDS SUMMARY | 2025-01-21 00:59 | XMS_ITS | Encounter Summary ---
Author Organization [facility] Address [address] [place] [address] Care Team Providers Care Puttying And Calking Supervisor Name Role Phone Viktor Baker MD Primary Care Provider [phone] Encounter Details Date Type Department Care Team (Latest Contact Info) Description 07/07/2005 Outpatient Historical [facility] Gastroenterology- [place] [address] [place] [address] Leonid Hope MD [address] [place] [address] Dysphagia (Primary Dx); Esophageal Stricture Social History Tobacco Use Types Packs/Day Years Used Date Smoking Tobacco: Never Assessed Comments Unknown Sex and Gender Information Value Date Recorded Sex Assigned at Not on file Legal Sex Female 3:13 AM OPHTHALMIC TECHNOLOGIST Gender Identity Not on file Sexual Orientation Not on file documented as of this encounter Plan of Treatment Not on file documented as of this encounter Visit Diagnoses Diagnosis Dysphagia- Primary Esophageal stricture Stricture and stenosis of esophagus documented in this encounter Care Teams Puttying And Calking Supervisor Relationship Specialty Start Date End Date Viktor Baker MD [address] [place] [address] PCP - General Family Practice 01/27/11 documented as of this encounter
--- OUTSIDE RECORDS SUMMARY | 2025-01-21 00:59 | XMS_ITS | Clinical Summary ---
Author Organization [facility] Address [address] [place] [address] Phone Care Team Providers Care Heavy Equipment Field Mechanic Name Role Phone Viktor Baker MD Primary Care Provider [phone] Allergies Active Allergy Reactions Criticality Noted Date [...] tablet Take 175 mcg by mouth daily solar installer pv. 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 Gender Identity Not on file Sexual Orientation Not on file Occupation Industry Job Start Date Job End Date Not on file Not on file Not on file Not on file Last Filed Vital Signs Vital Sign Reading Time Taken Comments Blood Pressure 125/70 04/01/2019 9:06 AM BOAT CREW DECK HAND Pulse 72 04/01/2019 9:06 AM BOAT CREW DECK HAND Temperature 36.3 C (97.3 F) 12/02/2018 8:27 AM CDT Respiratory Rate 18 12/02/2018 6:57 AM CDT Oxygen Saturation 100% 12/02/2018 8:27 AM CDT Inhaled Oxygen Concentration - - Weight 98.4 kg (217 lb) 04/01/2019 9:06 AM BOAT CREW DECK HAND Height 157.5 cm (5' 2 ) 04/01/2019 9:06 AM BOAT CREW DECK HAND Body Mass Index 39.69 04/01/2019 9:06 AM BOAT CREW DECK HAND Plan of Treatment Health Maintenance Due Date Last Done Comments DIABETES ANNUAL FOOT EXAM 02/13/1962 DTAP/TDAP/TD VACCINES (1 - Tdap) 02/13/1963 ZOSTER VACCINE (1 of 2) 02/13/1994 PNEUMOCOCCAL VACCINE 50+ YEA RS (2 of 2 - PCV) [...] 11/26/2018, Additional history exists INFLUENZA VACCINE (#1) 2024 COLORECTAL SCREENING Discontinued 01/28/2011, 03/06/20 Colorectal Cancer Screening Discontinued FIT-DNA Q 3 years Discontinued FIT/FOBT Q 1 year Discontinued Flex Sig/CT Colonography Q 5 years Discontinued Medical Devices Implanted Type Area Java Designer Device Identifier Shelf Expiration Date Model / Serial / Lot Lens Io Tecnis 1pc 25.5 [id number] - [id number] Implanted:Qty: 1 on 11/18/2018 by Victorino John MD at [facility] Right: Eye [employer] 06/28/2022 [id number] / [id number] / Lens Io Tecnis 1pc 24.5 [id number] - [id number] Implanted:Qty: 1 on 12/02/2018 by Victorino John MD at [facility] Left: Eye [employer] 09/09/2022 [id number] / [id number] / Procedures Procedure Name Priority Date/Time Associated [...] - 6.0 % 01/18/2016 11:40 AM CDT [facility] [place] [facility] EST. AVG GLUCOSE, A1C 123 mg/dL 01/18/2016 11:40 AM CDT [facility] Blood Venipuncture - L ab Collect / Unknown 01/17/2016 1:08 PM CDT 01/17/2016 1:22 PM CDT Narrative [facility] - 01/18/2016 11:40 AM CDT Test performed on [employer] instrumentation using HPLC methodology us A Gerardo Holly MD CHEMISTRY ORDERABLES Final Result [facility] CLIA# [id number] [address] [place] [address] from Last 3 Months or Most Recently Relevant to Health Maintenance Insurance [place] [address] Advance Directives For more information, please contact: [phone] * Full Code (Latest Code Status on [...] 6:46 AM 02/12/2016 12:14 PM Care Teams Heavy Equipment Field Mechanic Relationship Specialty Start Date End Date Viktor Baker MD [address] [id number] PCP - General Family Practice 01/27/11
--- OUTSIDE RECORDS SUMMARY | 2025-01-21 00:59 | XMS_ITS | Encounter Summary ---
Author Organization [facility] Address [address] [place] [address] Care Team Providers Care Safety Specialist Name Role Phone Viktor Baker MD Primary Care Provider [phone] Encounter Details Date Type Department Care Team (Latest Contact Info) Description 12/31/2006 Outpatient Historical [facility] [place] [address] [place] [address] Leonid Hope MD [address] [place] [address] Dysphagia, unspecified(787.20) (Primary Dx) Social History Tobacco Use Types Packs/Day Years Used Date Smoking Tobacco: Never Assessed Comments Unknown Sex and Gender Information Value Date Recorded Sex Assigned at Not on file 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
--- OUTSIDE RECORDS SUMMARY | 2025-01-21 00:59 | XMS_ITS | Encounter Summary ---
Author Organization [facility] Address [address] [place] [address] Care Team Providers Care Stump Blower Name Role Phone Viktor Baker MD Primary Care Provider [phone] Encounter Details Date Type Department Care Team (Latest Contact Info) Description 07/07/2005 Outpatient Historical [facility] [place] [address] [place] [address] Leonid Hope MD [address] [place] [address] Dysphagia (Primary Dx) Social History Tobacco Use Types Packs/Day Years Used Date Smoking Tobacco: Never Assessed Comments Unknown Sex and Gender Information Value Date Recorded Sex Assigned at Not on file Legal Sex Female 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
--- OUTSIDE RECORDS SUMMARY | 2025-01-21 00:59 | XMS_ITS | Encounter Summary ---
Author Organization [facility] Address [address] [place] [address] Care Team Providers Care Supervisor Toy Parts Former Name Role Phone Viktor Baker MD Primary Care Provider [phone] Encounter Details Date Type Department Care Team (Latest Contact Info) Description 12/24/2006 Outpatient Historical [facility] [place] [address] [place] [address] Leonid Hope MD [address] [place] [address] Stricture and Stenosis of Esophagus (Primary Dx) Social History Tobacco Use Types Packs/Day Years Used Date Smoking Tobacco: Never Assessed Comments Unknown Sex and Gender Information Value Date Recorded Sex Assigned at Not on file Legal Sex Female 3:13 AM SPECIALIZED DEVELOPER Gender Identity Not on file Sexual Orientation Not on file documented as of this encounter Plan of Treatment Not on file documented as of this encounter Visit Diagnoses Diagnosis Stricture and stenosis of esophagus- Primary documented in this encounter Care Teams Supervisor Toy Parts Former Relationship Specialty Start Date End Date Viktor Baker MD [address] [place] [address] PCP - General Family Practice 01/27/11 documented as of this encounter
--- OUTSIDE RECORDS SUMMARY | 2025-01-21 00:59 | XMS_ITS | Continuity of Care Document ---
Author Organization [facility] ([facility]) Address [address] [place] [address] Insurance Providers Payer Plan Claims Address Claims Phone Policy Number Group Number Relation Employer Guarantor Name Guarantor Guarantor Address Guarantor Phone [employer] [address], [place] [address] tel:[phone] Self Michelle Becerra [address] [place] [id number] MED[employer] A[employer] [address], [place] [address] [id number] Self Michelle Becerra [address] [place] [id number] [employer] MCR [address], [place] [address] tel:[phone] Self Michelle Becerra [address] [place] [id number] Problems Condition ICD9 code ICD10 code SNOMED code Start Date End Date S tatus Chronic obstructive pulmonary disease, unspecified J44.9 08/19/2023 Active Acute respiratory failure with hypercapnia J96.02 08/05/2022 Active Acute respiratory failure with hypoxia J96.01 08/05/2022 Active residential (current) use of inhaled steroids Z79.51 04/14/2022 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.82 11/03/2019 Active [...] 08/02/2021 Ac tive Atherosclerotic heart disease of [place] coronary artery without angina pectoris I25.10 11/03/2019 Active Type 2 diabetes mellitus with diabetic chronic kidney disease E11.22 08/05/2022 Active Morbid (severe) obesity due to excess calories E66.01 02/24/2024 Ac tive Body mass index (BMI) 40.0-44.9, adult Z68.41 04/20/2024 Active Influenza due to other identified influenza virus with other respiratory manifestations J10.1 05/25/2024 Active Pneumonia due to other specified bacteria J15.8 05/25/2024 Active Chronic obstructive pulmonary disease with (acute) exacerbation J44.1 05/25/2024 Acti ve Acute and chronic respiratory failure with hypoxia J96.21 05/25/2024 Active Respiratory failure, unspecified with hypercapnia J96.92 05/25/2024 Active Chronic obstructive pulmonary disease, unspecified J44.9 08/09/2024 Active Chronic respiratory failure with hypoxia J96.11 08/09/2024 Acti ve Body mass index (BMI) 40.0-44.9, adult Z68.41 10/28/2024 Active Results Test Result Date/Time Value / Unit Interp. Refere nce Range COVID-19 Test Viral Antigen null flavor [null] 01/18/2024 05:00 PM See note NEG COVID-19 Test Viral Antigen COVID-19 Test Viral Antigen null flavor [null] 01/11/2024 05:00 PM See note NEG COVID-19 Test Viral Antigen COVID-19 Test Viral Antigen null flavor [null] 01/04/2024 05:00 PM See note NEG COVID-19 Test Viral Antigen COVID-19 Test Viral Antigen null flavor [null] 12/28/2023 05:00 PM See note NEG COVID-19 Test Viral Antigen COVID-19 Test Viral Antigen null flavor [null] 12/21/2023 05:00 PM See note NEG COVID-19 Test Viral Antigen COVID-19 Test Viral Antigen null flavor [null] 12/14/2023 05:00 PM See note NEG COVID-19 Test Viral Antigen [...] Vaccine Unassigned Route of Administration 2022 Refused COVID-19 Vaccine Unassigned Route of Administration Refused Medications Medication Instructions Route Dosage Frequency Start Date Stop Date Indications Status Aldactone (spironolacto ne) 25 mg tablet (Aldactone (spironolacto ne)) 1/2 tab, oral, Once A Day oral 1.0 1.0 d 05/22 Active Anoro Ellipta (umeclidinium -vilanterol) 62.5-25 mcg/actuation blister with device (Anoro Ellipta (umeclidinium -vilanterol)) 1 inh, inhalation, Once A Day, clinical indication: COPDSpecial Instructions: Rinse mouth after use inhalati on 1.0 1.0 d 05/22 Chronic obstructive pulmonary disease, unspecified Active aspirin 81 mg tablet,chewab le (aspirin) 1 tab, oral, Once A Day, clinical indication: anticoagulant oral 1.0 1.0 d 05/22 Active atorvastatin 40 mg tablet (atorvastatin ) 1 tab, oral, At Bedtime, clinical indication: hyperlipidemia oral 1.0 05/22 Active buspirone 10 mg tablet (buspirone) 1, oral, Twice A Day oral 1.0 12.0 h 05/22 Active Calmoseptine (menthol-zinc oxide) 0.44-20.6 % ointment (Calmoseptine (menthol-zinc oxide)) 1 application, topical, Every Shift, cleans area and apply 1 application to vi area for preventative topical 1.0 8.0 h 05/22 Active clonazepam 0.5 mg tablet (clonazepam) 1 tab, oral, Once A Day oral 1.0 1.0 d 05/22 Generalized anxiety disorder Active clonazepam 0.5 mg tablet (clonazepam) 2 tab=1 mg, oral, At Bedtime oral 1.0 05/22 Active Dulcolax (bisacodyl) (bisacodyl) 5 mg tablet,delaye d release (DR/EC) (Dulcolax (bisacodyl) (bisacodyl)) 2 tabs/10mg, oral, Once A Day - PRN, clinical indication: constipation oral 1.0 1.0 d 05/22 Active Dulcolax (bisacodyl) (bisacodyl) 10 mg suppository (Dulcolax (bisacodyl) (bisacodyl)) 1 suppository, rectal, Once A Day - PRN, clinical indication: constipation rectal 1.0 1.0 d 05/22 Active furosemide 40 mg tablet (furosemide) 1 tab, oral, Once A Day oral 1.0 1.0 d 05/22 Chronic diastolic (congestive) heart failure Active ipratropium-a lbuterol 0.5 mg-3 mg(2.5 mg base)/3 mL solution for nebulization (ipratropium- albuterol) 1, inhalation, Every 6 Hours - PRN, congestion/coug h/dyspnea inhalati on 1.0 6.0 h 05/22 Acute respiratory failure with hypoxia Active levothyroxine 200 mcg capsule (levothyroxin e) 1 tab, oral, Once A Day oral 1.0 1.0 d 05/22 Active lorazepam 0.5 mg tablet (lorazepam) 1, oral, Twice A Day - PRN, f/u in 6 months oral 1.0 12.0 h 03/25 Generalized anxiety disorder Active metoprolol tartrate 25 mg tablet (metoprolol tartrate) 1 tab, oral, Twice A Day, clinical indication: HTNHold if heart rate <50 or blood pressure <100/60 oral 1.0 12.0 h 05/16 Active nitroglycerin 0.4 mg tablet, sublingual (nitroglyceri n) 1-3, sublingual, Three Times A Day - PRN, Administer 1 tablet sublingually every 5 min for chest pain. NO MORE than 3 tablets. Monitor BP and HOLD if SBP less than or equal to 90. sublingu al 1.0 8.0 h 05/22 Active sertraline 200 mg tablet (sertraline) 1 tab, oral, Once A Day, clinical indication: depressionincre ased to 200mg [address] Baker oral 1.0 1.0 d 05/22 Active Tylenol (acetaminophe n) 325 mg tablet (Tylenol (acetaminophe n)) 1 -2 tabs = 325 -650 mG, oral, Every 6 Hours - PRN, as needed for pain or fever oral 1.0 6.0 h 05/22 Active Ventolin HFA (albuterol sulfate) 90 mcg/actuation HFA aerosol inhaler (Ventolin HFA (albuterol sulfate)) 2 puffs, inhalation, Every 6 Hours - PRN, as needed for dyspnea inhalati on 1.0 6.0 h 05/22 Active Vitamin D3 (cholecalcife rol (vitamin d3)) 10 mcg (400 unit) tablet (Vitamin D3 (cholecalcife rol (vitamin d3))) 1, oral, Once A Day oral 1.0 1.0 d 05/22 Active doxycycline hyclate 100 mg tablet (doxycycline [...] inhalati on 1.0 12.0 h 02/23 Active ipratropium-a lbuterol 0.5 mg-3 mg(2.5 mg base)/3 mL solution for nebulization (ipratropium- albuterol) 1, inhalation, Four Times A Day, 1 [...] d 03/03 Active levofloxacin 750 mg tablet (levofloxacin ) 1, oral, Once A Day oral 1.0 1.0 d 03/22 Active metoprolol tartrate 25 mg tablet (metoprolol tartrate) 1 tab, oral, Twice A Day oral 1.0 12.0 h 05/22 Active prednisone 20 mg tablet (prednisone) 2 tabs, oral, Once A Day, Administer 40mg po daily x 5 days for COPD exacerbation oral 1.0 1.0 d 05/23 Active acyclovir 800 mg tablet (acyclovir) 1 tab, oral, Three Times A Day, 1 tab po TID x 7 days for shingles oral 1.0 8.0 h 05/20 Active Afluria Quad (6mo up) (flu vaccine [id number](6mo s up)) 60 mcg (15 mcg x 4)/0.5 mL suspension (Afluria Quad (6mo up) (flu vaccine [id number](6mo s up))) 0.5 ml, intramuscular, Once - One Time, clinical indication flu season intramus cular 1.0 05/20 Active albuterol sulfate 2.5 mg /3 mL (0.083 %) solution for nebulization (albuterol sulfate) 1 vial, inhalation, Every 4 Hours, while awake inhalati on 1.0 4.0 h 05/20 Active albuterol sulfate 2.5 mg /3 mL (0.083 %) solution for nebulization (albuterol sulfate) 1 inh, inhalation, Four Times A Day, Clinical Indication: Congestion inhalati on 1.0 6.0 h 05/20 Active Aplisol (tuberculin ppd) 5 tub. unit /0.1 mL solution (Aplisol (tuberculin ppd)) 0.1 ml, intradermal, Once - One Time, Administer the morning after admission intrader mal 1.0 05/20 Active Aplisol (tuberculin ppd) 5 tub. unit /0.1 mL solution (Aplisol (tuberculin ppd)) 0.1ml, intradermal, Once - One Time intrader mal 1.0 05/20 Active cefdinir 300 mg capsule (cefdinir) 1, oral, Twice A Day oral 1.0 12.0 h 05/20 Active clonazepam 1 mg tablet (clonazepam) 0.5mg, oral, Three Times A Day, Clinical indication: Anxiety11/16/19 Reviewed by JOYCE Landaverde - Continue x6 months oral 1.0 8.0 h 05/20 Active clonazepam 0.5 mg tablet (clonazepam) 1 tab, oral, Once A Day, Re-eval in 90 days oral 1.0 1.0 d 05/20 Generalized anxiety disorder Active clonazepam 1 mg tablet (clonazepam) 1 tab, oral, At Bedtime, Re-eval in 90days oral 1.0 05/20 Active dexamethasone 6 mg tablet (dexamethason e) 1 tablet, oral, Once A Day, Give 1 tab po daily x 5 days; clinical indication: Covid-19 positive oral 1.0 1.0 d 12/06/ 2022 02/21 /2025 Active Diflucan (fluconazole) 150 mg tablet (Diflucan (fluconazole) ) 1, oral, Once A Day Every Other Day oral 1.0 1.0 d 05/20 Active doxycycline hyclate 100 mg capsule (doxycycline hyclate) 1, oral, Twice A Day, Clinical Indication URI oral 1.0 12.0 h 05/20 Active doxycycline hyclate 100 mg capsule (doxycycline hyclate) 1, oral, Twice A Day, chest congestion oral 1.0 12.0 h 05/20 Active doxycycline hyclate 100 mg tablet (doxycycline hyclate) 1 tab, oral, Twice A Day, Give 1 tab po BID x 10 days for upper/lower respiratory infection oral 1.0 12.0 h 05/20 Active doxycycline monohydrate 100 mg tablet (doxycycline monohydrate) 1, oral, Twice A Day oral 1.0 12.0 h 05/20 Active furosemide 20 mg tablet (furosemide) 1 tab, oral, Twice A Day, give with 40mg to equal 60mg oral 1.0 12.0 h 05/20 Atheroscleroti c heart disease of [place] coronary artery without angina pectoris Active furosemide 40 mg tablet (furosemide) 1 tab, oral, Twice A Day, give with 20mg to equal 60mg oral 1.0 12.0 h 05/20 Active furosemide 10 mg/mL solution (furosemide) 40mg, injection, STAT - Immediately 1.0 05/20 Active ipratropium-a lbuterol 0.5 mg-3 mg(2.5 mg base)/3 mL solution for nebulization (ipratropium- albuterol) 1, inhalation, Four Times A Day, congestion/coug h/dyspnea x 7 days inhalati on 1.0 6.0 h 05/20 Active ipratropium-a lbuterol 0.5 mg-3 mg(2.5 mg base)/3 mL solution for nebulization (ipratropium- albuterol) 1, inhalation, Four Times A Day, 1 vial QID x7 days then back to PRN inhalati on 1.0 6.0 h 05/20 Active Lasix (furosemide) 40 mg tablet (Lasix (furosemide)) 1 tab, oral, Twice A Day, Clinical Indication: edema oral 1.0 12.0 h 05/20 Active Lasix (furosemide) 40 mg tablet (Lasix (furosemide)) 1 tab, oral, Once A Day oral 1.0 1.0 d 05/20 Active Lasix (furosemide) 80 mg tablet (Lasix (furosemide)) 1, oral, Once A Day, 80mg daily x5 days then decrease back to 40mg daily due to possible CHF exacerbation oral 1.0 1.0 d 05/20 Active levofloxacin 500 mg tablet (levofloxacin ) 1 tab, oral, Once A Day, clinical indication: PNU oral 1.0 1.0 d 05/20 Active levofloxacin 750 mg tablet (levofloxacin ) 1, oral, Once A Day oral 1.0 1.0 d 05/20 Active lorazepam 0.5 mg tablet (lorazepam) 1 tab, oral, Once A Day - PRN, Give 1 tab po daily PRN for severe anxietyuse as infrequently as possible re eval X 30 days 05/24/22 oral 1.0 1.0 d 05/20 Generalized anxiety disorder Active lorazepam 0.5 mg tablet (lorazepam) 1 tab, oral, Once A Day - PRN, Give 1 tab po daily PRN for severe anxietyuse as infrequently as possible re eval X 30 days 05/24/22 oral 1.0 1.0 d 05/20 Generalized anxiety disorder Active lorazepam 0.5 mg tablet (lorazepam) 1, oral, Once A Day - PRN, anxiety oral 1.0 1.0 d 05/20 Active lorazepam 0.5 mg tablet (lorazepam) 1, oral, Once A Day - PRN, re-eval in 3mths oral 1.0 1.0 d 05/20 Generalized anxiety disorder Active lorazepam 0.5 mg tablet (lorazepam) 1, oral, Twice A Day - PRN, f/u in 6 months oral 1.0 12.0 h 05/20 Generalized anxiety disorder Active metolazone 5 mg tablet (metolazone) 1 tab, oral, Once A Morning, Administer 5mg po 30mins BEFORE furosemide daily for 3 days, for elevated BNP and CHF oral 1.0 05/20 Active nystatin 100,000 unit/gram cream (nystatin) small amount, topical, Twice A Day, Apply to abd folds BID x 10days topical 1.0 12.0 h 05/20 Active omeprazole 20 mg capsule,delay ed release(DR/EC ) (omeprazole) 1 cap, oral, Once A Day, give X 2 weeks then DC oral 1.0 1.0 d 05/20 Active Paxlovid (EUA) (nirmatrelvir -ritonavir) 300 mg (150 mg x 2)-100 mg tablets,dose pack (Paxlovid (EUA) (nirmatrelvir -ritonavir)) 1 dose, oral, Twice A Day, Take 2 150mg tabs of nirmatrelver with 1 100mg tab of ritonavir for each dose x 5 days for Covid 19clinical indication: Covid-19 positive oral 1.0 12.0 h 05/20 Active Paxlovid (nirmatrelvir -ritonavir) 150-100 mg tablets,dose pack (Paxlovid (nirmatrelvir -ritonavir)) as directed, oral, Twice A Day oral 1.0 12.0 h 05/20 Active prednisone 20 mg tablet (prednisone) 2, oral, Once A Day, Clinical Indication: congestion oral 1.0 1.0 d 05/20 Active prednisone 20 mg tablet (prednisone) 2, oral, Once A Day oral 1.0 1.0 d 05/20 Active prednisone 20 mg tablet (prednisone) 1 tab, oral, Once A Morning oral 1.0 05/20 Active prednisone 20 mg tablet (prednisone) 2, oral, Once A Day oral 1.0 1.0 d 05/20 Active prednisone 20 mg tablet (prednisone) 2, oral, Once A Day oral 1.0 1.0 d 05/20 Active prednisone 20 mg tablet (prednisone) 2, oral, Once A Day, Take 2 tabs PO daily x5 days for respiratory oral 1.0 1.0 d 05/20 Active prednisone 10 mg tablet (prednisone) 3 tabs, oral, Once A Day, Give Prednisone 30mg po daily x 3 days, then 20mg po daily x 3 days, then 10mg pod daily x 3 days then DC. oral 1.0 1.0 d 05/20 Active prednisone 10 mg tablet (prednisone) 2 tabs, oral, Once A Day, Give Prednisone 30mg po daily x 3 days, then 20mg po daily x 3 days, then 10mg pod daily x 3 days then DC. oral 1.0 1.0 d 05/20 Active prednisone 10 mg tablet (prednisone) 1 tab, oral, Once A Day, Give Prednisone 30mg po daily x 3 days, then 20mg po daily x 3 days, then 10mg pod daily x 3 days then DC. oral 1.0 1.0 d 05/20 Active prednisone 20 mg tablet (prednisone) 2 tabs, oral, Once A Day, Administer 40mg po daily x 5 days for COPD exacerbation oral 1.0 1.0 d 05/22 Active acetaminophen 325 mg tablet (acetaminophe n) 1-2 tabs (325-650 mg), oral, Every 6 Hours - PRN, for pain or fever oral 1.0 6.0 h 2024 Active albuterol sulfate 90 mcg/actuation HFA aerosol inhaler (albuterol sulfate) 2 puffs, inhalation, Every 6 Hours - PRN, SOB OR WHEEZING inhalati on 1.0 6.0 h 2024 Chronic obstructive pulmonary disease with (acute) exacerbation Active Anoro Ellipta (umeclidinium -vilanterol) 62.5-25 mcg/actuation blister with device (Anoro Ellipta (umeclidinium -vilanterol)) 1 inhalation, inhalation, Once A Day inhalati on 1.0 1.0 d 2024 Chronic obstructive pulmonary disease with (acute) exacerbation Active aspirin 81 mg tablet,delaye d release (DR/EC) (aspirin) 1 tab, oral, Once A Day oral 1.0 1.0 d 06/08 Active atorvastatin 40 mg tablet (atorvastatin ) 1 tab, oral, At Bedtime oral 1.0 2024 Active buspirone 10 mg tablet (buspirone) 1 tab, oral, Twice A Day oral 1.0 12.0 h 2024 Generalized anxiety disorder Active cefdinir 300 mg capsule (cefdinir) 1 cap, oral, Twice A Day, for 5 days oral 1.0 12.0 h 05/30 Active cholecalcifer ol (vitamin D3) 10 mcg (400 unit) tablet (cholecalcife rol (vitamin D3)) 1 tab, oral, Once A Day oral 1.0 1.0 d 2024 Active clonazepam 0.5 mg tablet (clonazepam) 1 tab, oral, Once A Day, exempt F41.9 oral 1.0 1.0 d 2024 Active clonazepam 1 mg tablet (clonazepam) 1 tab, oral, At Bedtime, exempt F41.9 oral 1.0 2024 Active dexamethasone 2 mg tablet (dexamethason e) 1 tab, oral, Once A Day, for 4 days oral 1.0 1.0 d 05/29 Active Dulcolax (bisacodyl) (bisacodyl) 10 mg suppository (Dulcolax (bisacodyl) (bisacodyl)) 1 suppository, rectal, Once A Day - PRN, Give rectally if can't take p/o, if no results from MOM rectal 1.0 1.0 d 2024 Active furosemide 20 mg tablet (furosemide) 1 tab, oral, At Bedtime, Give at 3pm oral 1.0 2024 Atheroscleroti c heart disease of [place] coronary artery without angina pectoris Active furosemide 40 mg tablet (furosemide) 1 tab, oral, Once A Day oral 1.0 1.0 d 2024 Active ipratropium-a lbuterol 0.5 mg-3 mg(2.5 mg base)/ solution for nebulization (ipratropium- albuterol) 1 neb, inhalation, Every 6 Hours - PRN, for sob or wheezing inhalati on 1.0 6.0 h 2024 Respiratory failure, unspecified with hypercapnia Active levothyroxine 200 mcg tablet (levothyroxin e) 1 tab, oral, Once A Day oral 1.0 1.0 d 2024 Active menthol-zinc oxide 0.44-20.6 % ointment (menthol-zinc oxide) 1 thalia, topical, Once A Day, apply to affected area topical 1.0 1.0 d 2024 Active nitroglycerin 0.4 mg tablet, sublingual (nitroglyceri n) 1 tab, sublingual, Three Times A Day - PRN, every 5 minutes x 3 for chest pain, not to exceed 3 doses in 15 minutes, if pain persists, seek medical attention sublingu al 1.0 8.0 h 2024 Active potassium chloride 10 mEq tablet extended release (potassium chloride) 1 tab, oral, Twice A Day oral 1.0 12.0 h 06/08 Active sertraline 100 mg tablet (sertraline) 2 tabs (200 mg), oral, Once A Day oral 1.0 1.0 d 2024 Major depressive disorder, recurrent, moderate Active spironolacton e 25 mg tablet (spironolacto ne) 0.5 tab (12.5 mg), oral, Once A Day oral 1.0 1.0 d 2024 Active Tylenol (acetaminophe n) 325 mg tablet (Tylenol (acetaminophe n)) 2 tabs/650mg, oral, Every 6 Hours - PRN, as needed for PRN pain/increased tempMay give rectally if necessary oral 1.0 6.0 h 05/25 Active nystatin 100,000 unit/gram powder (nystatin) 1 time, topical, Every Shift, Apply to affected area topical 1.0 8.0 h 2024 Active aspirin 81 mg tablet,chewab le (aspirin) 1, oral, Once A Day oral 1.0 1.0 d 2024 Active potassium chloride 10 mEq capsule, extended release (potassium chloride) 1, oral, Twice A Day oral 1.0 12.0 h 2024 Active lorazepam 0.5 mg tablet (lorazepam) 1, oral, Twice A Day - PRN, f/u in 3 months oral 1.0 12.0 h 06/28 Generalized anxiety disorder Active lorazepam 0.5 mg tablet (lorazepam) 1, oral, Twice A Day - PRN oral 1.0 12.0 h 09/09 Generalized anxiety disorder Active augmentin clavulanate 85/125 875/125 tablet (augmentin clavulanate 85/125) 875/125, oral, Twice A Day, augmentin clavulanate 875/125 one tab by mouth twice daily for 10 days for respiratory symptoms oral 1.0 12.0 h 12/04 Active lorazepam 0.5 mg tablet (lorazepam) 1, oral, Twice A Day - PRN oral 1.0 12.0 h 03/16 Generalized anxiety disorder Active azithromycin 250 mg tablet (azithromycin ) 2, oral, Once - One Time oral 1.0 11/25 Active azithromycin 250 mg tablet (azithromycin ) 1, oral, Once A Day oral 1.0 1.0 d 11/29 Active lorazepam 0.5 mg tablet (lorazepam) 1, oral, Twice A Day - PRN oral 1.0 12.0 h 03/16 Generalized anxiety disorder Active lorazepam 0.5 mg tablet (lorazepam) 1, oral, Twice A Day - PRN oral 1.0 12.0 h 01/05 Generalized anxiety disorder Active doxycycline hyclate 100 mg capsule (doxycycline hyclate) 1 capsule, oral, Twice A Day, clinical indication: congestion oral 1.0 12.0 h 01/25 Active ipratropium-a lbuterol 0.5 mg-3 mg(2.5 mg base)/3 mL solution for nebulization (ipratropium- albuterol) 1 vial, inhalation, Every 6 Hours inhalati on 1.0 6.0 h 01/25 Active prednisone 20 mg tablet (prednisone) 2 tab= 40 mg, oral, Once A Day, clinical indication: wheezing oral 1.0 1.0 d 01/23 Active furosemide 10 mg/mL solution (furosemide) 40 mg, injection, Once - One Time, clinical indication : dyspnea/ swelling 1.0 01/19 Active Vital Signs Date Vital Result Comment 03/08/2024 07:36 PM Heart Rate (8867-4) 78 /min Blood Pressure Systolic (8480-6) 132 mm[Hg] Blood Pressure Diastolic (8462-4) 66 mm[Hg] 03/08/2024 07:35 PM Oxygen Saturation (04563-8) 94 % 03/08/2024 09:57 AM Oxygen Saturation (99626-5) 95 % 03/08/2024 07:39 AM Heart Rate (8867-4) 64 /min Blood Pressure Systolic (8480-6) 128 mm[Hg] Blood Pressure Diastolic (8462-4) 60 mm[Hg] 03/07/2024 06:12 PM Oxygen Saturation (72640-3) 94 % Heart Rate (8867-4) 62 /min Blood Pressure Systolic (8480-6) 122 mm[Hg] Blood Pressure Diastolic (8462-4) 61 mm[Hg] 03/07/2024 12:51 PM Oxygen Saturation (89461-8) 94 % 03/07/2024 07:00 AM Heart Rate (8867-4) 66 /min Blood Pressure Systolic (8480-6) 124 mm[Hg] Blood Pressure Diastolic (8462-4) 53 mm[Hg] 03/06/2024 07:37 PM Oxygen Saturation (75683-0) 92 % 03/06/2024 07:20 PM Heart Rate (8867-4) 65 /min Blood Pressure Systolic (8480-6) 94 mm[Hg] Blood Pressure Diastolic (8462-4) 52 mm[Hg] 03/06/2024 07:30 AM Oxygen Saturation (17447-6) 94 % 03/06/2024 06:54 AM Heart Rate (8867-4) 70 /min Blood Pressure Systolic (8480-6) 114 mm[Hg] Blood Pressure Diastolic (8462-4) 65 mm[Hg] 03/05/2024 07:50 PM Oxygen Saturation (90397-3) 93 % 03/05/2024 07:16 PM Heart Rate (8867-4) 67 /min Blood Pressure Systolic (8480-6) 102 mm[Hg] Blood Pressure Diastolic (8462-4) 67 mm[Hg] 03/05/2024 08:42 AM Oxygen Saturation (80767-0) 95 % 03/05/2024 07:20 AM Heart Rate (8867-4) 67 /min Blood Pressure Systolic (8480-6) 121 mm[Hg] Blood Pressure Diastolic (8462-4) 69 mm[Hg] 03/04/2024 08:46 PM Oxygen Saturation (07211-2) 96 % 03/04/2024 07:02 PM Heart Rate (8867-4) 65 /min Blood Pressure Systolic (8480-6) 90 mm[Hg] Blood Pressure Diastolic (8462-4) 64 mm[Hg] 03/04/2024 10:26 AM Oxygen Saturation (02042-1) 99 % 03/04/2024 06:29 AM Heart Rate (8867-4) 57 /min Blood Pressure Systolic (8480-6) 124 mm[Hg] Blood Pressure Diastolic (8462-4) 62 mm[Hg] 03/02/2024 12:36 PM Temperature (8310-5) 97.4 [degF] Respiratory Rate (9279-1) 15 /min 02/28/2024 05:34 PM Body Weight (25574-0) 211.4 [lb_av ] Body Mass Index (09404-4) 41.28 kg/m2 02/25/2024 06:47 PM Temperature (8310-5) 98.6 [degF] Respiratory Rate (9279-1) 18 /min 02/25/2024 08:28 AM Temperature (8310-5) 97.6 [degF] Respiratory Rate (9279-1) 18 /min 02/24/2024 06:32 PM Temperature (8310-5) 98.1 [degF] Respiratory Rate (9279-1) 20 /min 02/24/2024 08:04 AM Temperature (8310-5) 97.9 [degF] Respiratory Rate (9279-1) 18 /min 02/23/2024 06:40 PM Temperature (8310-5) 97.8 [degF] Respiratory Rate (9279-1) 20 /min 02/23/2024 07:54 AM Temperature (8310-5) 98 [degF] Respiratory Rate (9279-1) 18 /min 02/22/2024 06:05 PM Respiratory Rate (9279-1) 20 /min 02/22/2024 06:04 PM Temperature (8310-5) 97.9 [degF] 02/22/2024 08:59 AM Temperature (8310-5) 97.8 [degF] Respiratory Rate (9279-1) 19 /min 02/21/2024 08:30 PM Temperature (8310-5) 98.6 [degF] Respiratory Rate (9279-1) 17 /min 02/20/2024 05:54 AM Body Weight (58106-8) 200 [lb_av] Body Mass Index (32105-6) 39.06 kg/m2 02/15/2024 01:01 AM Body Weight (40612-1) 206 [lb_av] Body Mass Index (17984-5) 40.23 kg/m2 02/03/2024 11:29 AM Body Weight (08642-8) 206 [lb_av] Body Mass Index (79277-4) 40.23 kg/m2 02/02/2024 11:34 AM Body Weight (58492-0) 204.8 [lb_av ] Body Mass Index (23046-3) 39.99 kg/m2 02/01/2024 05:22 PM Body Weight (39747-3) 205 [lb_av] Body Mass Index (54792-8) 40.03 kg/m2 01/29/2024 08:39 AM Body Weight (54934-6) 212.8 [lb_av ] Body Mass Index (89695-3) 41.56 kg/m2 12/29/2023 10:40 AM Body Weight (51510-7) 205.6 [lb_av ] Body Mass Index (25881-2) 40.15 kg/m2 11/03/2019 02:35 PM Body Height (8302-2) 60 [in_us] 03/09/2024 11:32 AM Temperature (8310-5) 97.6 [degF] Respiratory Rate (9279-1) 20 /min Heart Rate (8867-4) 62 /min 03/09/2024 08:14 AM Oxygen Saturation (48650-2) 95 % 03/09/2024 07:20 AM Heart Rate (8867-4) 63 /min Blood Pressure Systolic (8480-6) 118 mm[Hg] Blood Pressure Diastolic (8462-4) 64 mm[Hg] 03/09/2024 06:15 PM Oxygen Saturation (46589-1) 94 % Heart Rate (8867-4) 60 /min Blood Pressure Systolic (8480-6) 120 mm[Hg] Blood Pressure Diastolic (8462-4) 61 mm[Hg] 03/11/2024 04:38 PM Body Weight (69451-3) 199.2 [lb_av ] Body Mass Index (55127-4) 38.9 kg/m2 03/11/2024 11:04 AM Oxygen Saturation (39243-6) 95 % 03/11/2024 06:32 AM Heart Rate (8867-4) 61 /min Blood Pressure Systolic (8480-6) 103 mm[Hg] Blood Pressure Diastolic (8462-4) 51 mm[Hg] 03/10/2024 07:49 PM Body Weight (68332-8) 206.2 [lb_av ] Body Mass Index (58527-1) 40.27 kg/m2 03/10/2024 06:40 PM Oxygen Saturation (33560-5) 94 % Heart Rate (8867-4) 61 /min Blood Pressure Systolic (8480-6) 124 mm[Hg] Blood Pressure Diastolic (8462-4) 67 mm[Hg] 03/10/2024 08:09 AM Oxygen Saturation (88931-2) 95 % 03/10/2024 07:31 AM Heart Rate (8867-4) 64 /min Blood Pressure Systolic (8480-6) 125 mm[Hg] Blood Pressure Diastolic (8462-4) 60 mm[Hg] 03/12/2024 03:46 PM Body Weight (54846-0) 200 [lb_av] Body Mass Index (94238-6) 39.06 kg/m2 03/12/2024 08:14 AM Oxygen Saturation (38422-1) 93 % Blood Pressure Systolic (8480-6) 112 mm[Hg] Blood Pressure Diastolic (8462-4) 82 mm[Hg] 03/12/2024 08:13 AM Heart Rate (8867-4) 70 /min 03/11/2024 06:47 PM Heart Rate (8867-4) 72 /min Blood Pressure Systolic (8480-6) 104 mm[Hg] Blood Pressure Diastolic (8462-4) 62 mm[Hg] 03/11/2024 06:46 PM Oxygen Saturation (88475-5) 92 % 03/13/2024 02:36 PM Body Weight (29365-6) 198.2 [lb_av ] Body Mass Index (46649-3) 38.7 kg/m2 03/13/2024 08:12 AM Oxygen Saturation (67398-3) 93 % 03/13/2024 08:11 AM Heart Rate (8867-4) 74 /min Blood Pressure Systolic (8480-6) 108 mm[Hg] Blood Pressure Diastolic (8462-4) 58 mm[Hg] 03/13/2024 01:52 AM Heart Rate (8867-4) 63 /min Blood Pressure Systolic (8480-6) 93 mm[Hg] Blood Pressure Diastolic (8462-4) 48 mm[Hg] 03/12/2024 08:17 PM Heart Rate (8867-4) 42 /min Blood Pressure Systolic (8480-6) 91 mm[Hg] Blood Pressure Diastolic (8462-4) 63 mm[Hg] 03/12/2024 07:14 PM Oxygen Saturation (63066-0) 96 % 03/13/2024 06:46 PM Heart Rate (8867-4) 74 /min Blood Pressure Systolic (8480-6) 112 mm[Hg] Blood Pressure Diastolic (8462-4) 59 mm[Hg] 03/13/2024 06:42 PM Oxygen Saturation (97605-2) 92 % 03/15/2024 07:12 AM Oxygen Saturation (67083-9) 94 % 03/15/2024 07:06 AM Heart Rate (8867-4) 64 /min Blood Pressure Systolic (8480-6) 124 mm[Hg] Blood Pressure Diastolic (8462-4) 61 mm[Hg] 03/14/2024 06:27 PM Oxygen Saturation (30489-8) 94 % Heart Rate (8867-4) 68 /min Blood Pressure Systolic (8480-6) 116 mm[Hg] Blood Pressure Diastolic (8462-4) 60 mm[Hg] 03/14/2024 08:13 AM Oxygen Saturation (40587-2) 94 % 03/14/2024 07:35 AM Heart Rate (8867-4) 70 /min Blood Pressure Systolic (8480-6) 110 mm[Hg] Blood Pressure Diastolic (8462-4) 63 mm[Hg] 03/15/2024 06:34 PM Oxygen Saturation (83932-7) 94 % Heart Rate (8867-4) 61 /min Blood Pressure Systolic (8480-6) 120 mm[Hg] Blood Pressure Diastolic (8462-4) 64 mm[Hg] 03/17/2024 06:37 AM Oxygen Saturation (59833-3) 92 % Heart Rate (8867-4) 64 /min Blood Pressure Systolic (8480-6) 111 mm[Hg] Blood Pressure Diastolic (8462-4) 61 mm[Hg] 03/16/2024 06:19 PM Heart Rate (8867-4) 61 /min Blood Pressure Systolic (8480-6) 112 mm[Hg] Blood Pressure Diastolic (8462-4) 62 mm[Hg] 03/16/2024 06:18 PM Oxygen Saturation (23675-5) 95 % 03/16/2024 09:38 AM Temperature (8310-5) 97.7 [degF] Oxygen Saturation (51664-6) 95 % Respiratory Rate (9279-1) 16 /min Heart Rate (8867-4) 57 /min Blood Pressure Systolic (8480-6) 109 mm[Hg] Blood Pressure Diastolic (8462-4) 63 mm[Hg] 03/17/2024 06:10 PM Heart Rate (8867-4) 61 /min Blood Pressure Systolic (8480-6) 115 mm[Hg] Blood Pressure Diastolic (8462-4) 61 mm[Hg] 03/17/2024 06:09 PM Oxygen Saturation (92371-5) 94 % 03/18/2024 07:24 PM Heart Rate (8867-4) 76 /min Blood Pressure Systolic (8480-6) 103 mm[Hg] Blood Pressure Diastolic (8462-4) 60 mm[Hg] 03/18/2024 06:49 PM Oxygen Saturation (35535-7) 93 % 03/18/2024 02:05 PM Oxygen Saturation (03531-4) 93 % 03/18/2024 07:49 AM Heart Rate (8867-4) 67 /min Blood Pressure Systolic (8480-6) 108 mm[Hg] Blood Pressure Diastolic (8462-4) 54 mm[Hg] 03/19/2024 08:42 AM Oxygen Saturation (11026-7) 95 % 03/19/2024 08:41 AM Heart Rate (8867-4) 78 /min Blood Pressure Systolic (8480-6) 114 mm[Hg] Blood Pressure Diastolic (8462-4) 69 mm[Hg] 03/19/2024 06:05 PM Oxygen Saturation (06835-3) 94 % Heart Rate (8867-4) 72 /min Blood Pressure Systolic (8480-6) 112 mm[Hg] Blood Pressure Diastolic (8462-4) 72 mm[Hg] 03/20/2024 06:03 PM Heart Rate (8867-4) 68 /min Blood Pressure Systolic (8480-6) 111 mm[Hg] Blood Pressure Diastolic (8462-4) 63 mm[Hg] 03/20/2024 06:02 PM Oxygen Saturation (14733-9) 94 % 03/20/2024 09:34 AM Oxygen Saturation (67119-9) 92 % 03/20/2024 07:04 AM Heart Rate (8867-4) 62 /min Blood Pressure Systolic (8480-6) 104 mm[Hg] Blood Pressure Diastolic (8462-4) 52 mm[Hg] 03/21/2024 07:13 AM Oxygen Saturation (88120-2) 92 % 03/21/2024 07:12 AM Heart Rate (8867-4) 64 /min Blood Pressure Systolic (8480-6) 140 mm[Hg] Blood Pressure Diastolic (8462-4) 68 mm[Hg] 03/22/2024 08:44 AM Oxygen Saturation (60188-9) 94 % Heart Rate (8867-4) 78 /min Blood Pressure Systolic (8480-6) 108 mm[Hg] Blood Pressure Diastolic (8462-4) 64 mm[Hg] 03/21/2024 06:01 PM Heart Rate (8867-4) 65 /min Blood Pressure Systolic (8480-6) 129 mm[Hg] Blood Pressure Diastolic (8462-4) 67 mm[Hg] 03/21/2024 06:00 PM Oxygen Saturation (98251-5) 93 % 03/23/2024 02:46 PM Oxygen Saturation (97264-1) 95 % 03/23/2024 06:45 AM Heart Rate (8867-4) 81 /min Blood Pressure Systolic (8480-6) 109 mm[Hg] Blood Pressure Diastolic (8462-4) 69 mm[Hg] 03/22/2024 06:02 PM Heart Rate (8867-4) 74 /min Blood Pressure Systolic (8480-6) 112 mm[Hg] Blood Pressure Diastolic (8462-4) 66 mm[Hg] 03/22/2024 06:01 PM Oxygen Saturation (74836-6) 93 % 03/23/2024 06:05 PM Heart Rate (8867-4) 60 /min Blood Pressure Systolic (8480-6) 112 mm[Hg] Blood Pressure Diastolic (8462-4) 61 mm[Hg] 03/23/2024 06:04 PM Oxygen Saturation (91767-9) 93 % 03/23/2024 04:14 PM Temperature (8310-5) 97.6 [degF] Oxygen Saturation (35401-6) 95 % Respiratory Rate (9279-1) 19 /min Heart Rate (8867-4) 58 /min Blood Pressure Systolic (8480-6) 98 mm[Hg] Blood Pressure Diastolic (8462-4) 47 mm[Hg] 03/24/2024 09:20 PM Oxygen Saturation (21556-9) 95 % 03/24/2024 06:37 PM Heart Rate (8867-4) 60 /min Blood Pressure Systolic (8480-6) 105 mm[Hg] Blood Pressure Diastolic (8462-4) 45 mm[Hg] 03/24/2024 08:31 AM Oxygen Saturation (57289-1) 94 % 03/24/2024 07:19 AM Heart Rate (8867-4) 63 /min Blood Pressure Systolic (8480-6) 114 mm[Hg] Blood Pressure Diastolic (8462-4) 62 mm[Hg] 03/25/2024 07:16 AM Oxygen Saturation (09484-8) 90 % 03/25/2024 07:01 AM Heart Rate (8867-4) 59 /min Blood Pressure Systolic (8480-6) 110 mm[Hg] Blood Pressure Diastolic (8462-4) 58 mm[Hg] 03/26/2024 02:32 PM Oxygen Saturation (23563-4) 96 % 03/26/2024 07:17 AM Heart Rate (8867-4) 62 /min Blood Pressure Systolic (8480-6) 97 mm[Hg] Blood Pressure Diastolic (8462-4) 54 mm[Hg] 03/26/2024 05:29 AM Oxygen Saturation (84533-4) 97 % 03/25/2024 07:20 PM Heart Rate (8867-4) 65 /min Blood Pressure Systolic (8480-6) 92 mm[Hg] Blood Pressure Diastolic (8462-4) 50 mm[Hg] 03/27/2024 05:09 AM Heart Rate (8867-4) 75 /min Blood Pressure Systolic (8480-6) 109 mm[Hg] Blood Pressure Diastolic (8462-4) 51 mm[Hg] 03/26/2024 07:05 PM Oxygen Saturation (79005-5) 94 % 03/27/2024 06:32 PM Heart Rate (8867-4) 57 /min Blood Pressure Systolic (8480-6) 117 mm[Hg] Blood Pressure Diastolic (8462-4) 58 mm[Hg] 03/27/2024 06:50 AM Oxygen Saturation (32343-2) 90 % 03/27/2024 06:46 AM Heart Rate (8867-4) 56 /min Blood Pressure Systolic (8480-6) 130 mm[Hg] Blood Pressure Diastolic (8462-4) 60 mm[Hg] 03/28/2024 06:17 PM Oxygen Saturation (13618-0) 93 % Heart Rate (8867-4) 59 /min Blood Pressure Systolic (8480-6) 115 mm[Hg] Blood Pressure Diastolic (8462-4) 62 mm[Hg] 03/28/2024 09:07 AM Oxygen Saturation (41757-0) 95 % 03/28/2024 07:34 AM Heart Rate (8867-4) 65 /min Blood Pressure Systolic (8480-6) 121 mm[Hg] Blood Pressure Diastolic (8462-4) 54 mm[Hg] 03/29/2024 06:36 PM Heart Rate (8867-4) 62 /min Blood Pressure Systolic (8480-6) 114 mm[Hg] Blood Pressure Diastolic (8462-4) 52 mm[Hg] 03/29/2024 06:35 PM Oxygen Saturation (85259-0) 96 % 03/29/2024 08:18 AM Oxygen Saturation (98407-4) 94 % Heart Rate (8867-4) 58 /min Blood Pressure Systolic (8480-6) 96 mm[Hg] Blood Pressure Diastolic (8462-4) 40 mm[Hg] 03/30/2024 10:56 AM Body Weight (09745-3) 203 [lb_av] Body Mass Index (23567-2) 39.64 kg/m2 03/30/2024 09:01 AM Temperature (8310-5) 97.5 [degF] Oxygen Saturation (62611-2) 91 % Respiratory Rate (9279-1) 17 /min Heart Rate (8867-4) 58 /min Blood Pressure Systolic (8480-6) 108 mm[Hg] Blood Pressure Diastolic (8462-4) 45 mm[Hg] 03/30/2024 08:25 AM Heart Rate (8867-4) 58 /min Blood Pressure Systolic (8480-6) 108 mm[Hg] Blood Pressure Diastolic (8462-4) 45 mm[Hg] 03/31/2024 06:02 PM Oxygen Saturation (21570-0) 93 % Heart Rate (8867-4) 62 /min Blood Pressure Systolic (8480-6) 110 mm[Hg] Blood Pressure Diastolic (8462-4) 60 mm[Hg] 03/31/2024 03:59 PM Body Weight (82599-2) 200.6 [lb_av ] Body Mass Index (71019-4) 39.17 kg/m2 03/31/2024 01:36 PM Oxygen Saturation (03403-0) 91 % 03/31/2024 06:36 AM Heart Rate (8867-4) 65 /min Blood Pressure Systolic (8480-6) 109 mm[Hg] Blood Pressure Diastolic (8462-4) 55 mm[Hg] 03/30/2024 06:02 PM Heart Rate (8867-4) 62 /min Blood Pressure Systolic (8480-6) 111 mm[Hg] Blood Pressure Diastolic (8462-4) 63 mm[Hg] 03/30/2024 06:01 PM Oxygen Saturation (19042-3) 93 % 04/01/2024 07:00 AM Heart Rate (8867-4) 59 /min Blood Pressure Systolic (8480-6) 116 mm[Hg] Blood Pressure Diastolic (8462-4) 63 mm[Hg] 04/01/2024 11:32 AM Oxygen Saturation (08610-4) 93 % 04/01/2024 06:32 PM Oxygen Saturation (76612-7) 92 % Heart Rate (8867-4) 62 /min Blood Pressure Systolic (8480-6) 94 mm[Hg] Blood Pressure Diastolic (8462-4) 49 mm[Hg] 04/01/2024 01:49 PM Body Weight (27467-8) 204.8 [lb_av ] Body Mass Index (93186-5) 39.99 kg/m2 04/02/2024 01:30 PM Oxygen Saturation (61383-9) 94 % 04/02/2024 06:44 AM Heart Rate (8867-4) 68 /min Blood Pressure Systolic (8480-6) 112 mm[Hg] Blood Pressure Diastolic (8462-4) 63 mm[Hg] 04/02/2024 07:16 PM Oxygen Saturation (87564-8) 95 % Heart Rate (8867-4) 58 /min Blood Pressure Systolic (8480-6) 105 mm[Hg] Blood Pressure Diastolic (8462-4) 48 mm[Hg] 04/02/2024 03:00 PM Body Weight (82038-3) 200.6 [lb_av ] Body Mass Index (02500-0) 39.17 kg/m2 04/03/2024 07:11 PM Heart Rate (8867-4) 62 /min Blood Pressure Systolic (8480-6) 101 mm[Hg] Blood Pressure Diastolic (8462-4) 50 mm[Hg] 04/03/2024 07:05 PM Oxygen Saturation (12545-9) 94 % 04/03/2024 10:15 AM Oxygen Saturation (56797-2) 94 % 04/03/2024 08:18 AM Heart Rate (8867-4) 63 /min Blood Pressure Systolic (8480-6) 114 mm[Hg] Blood Pressure Diastolic (8462-4) 61 mm[Hg] 04/04/2024 06:18 PM Heart Rate (8867-4) 61 /min Blood Pressure Systolic (8480-6) 108 mm[Hg] Blood Pressure Diastolic (8462-4) 63 mm[Hg] 04/04/2024 08:56 AM Heart Rate (8867-4) 58 /min Blood Pressure Systolic (8480-6) 106 mm[Hg] Blood Pressure Diastolic (8462-4) 54 mm[Hg] 04/04/2024 06:17 PM Oxygen Saturation (03798-6) 93 % 04/04/2024 09:22 AM Oxygen Saturation (04856-0) 94 % 04/05/2024 09:50 AM Oxygen Saturation (88091-7) 94 % 04/05/2024 08:46 AM Heart Rate (8867-4) 58 /min Blood Pressure Systolic (8480-6) 112 mm[Hg] Blood Pressure Diastolic (8462-4) 61 mm[Hg] 04/05/2024 06:34 PM Oxygen Saturation (86359-0) 94 % Heart Rate (8867-4) 59 /min Blood Pressure Systolic (8480-6) 109 mm[Hg] Blood Pressure Diastolic (8462-4) 56 mm[Hg] 04/06/2024 06:52 AM Heart Rate (8867-4) 76 /min Blood Pressure Systolic (8480-6) 112 mm[Hg] Blood Pressure Diastolic (8462-4) 54 mm[Hg] 04/06/2024 06:10 PM Heart Rate (8867-4) 71 /min Blood Pressure Systolic (8480-6) 107 mm[Hg] Blood Pressure Diastolic (8462-4) 61 mm[Hg] 04/06/2024 06:09 PM Oxygen Saturation (52174-0) 94 % 04/06/2024 08:52 AM Temperature (8310-5) 96.4 [degF] Oxygen Saturation (20482-8) 96 % Respiratory Rate (9279-1) 17 /min Heart Rate (8867-4) 76 /min Body Weight (75300-1) 203.6 [lb_av] Body Mass Index (82672-1) 39.76 kg/m2 04/07/2024 06:08 PM Heart Rate (8867-4) 78 /min Blood Pressure Systolic (8480-6) 124 mm[Hg] Blood Pressure Diastolic (8462-4) 76 mm[Hg] 04/07/2024 06:07 PM Oxygen Saturation (59167-9) 94 % 04/07/2024 08:36 AM Oxygen Saturation (07291-7) 95 % 04/07/2024 08:05 AM Heart Rate (8867-4) 69 /min Blood Pressure Systolic (8480-6) 112 mm[Hg] Blood Pressure Diastolic (8462-4) 68 mm[Hg] 04/08/2024 06:56 AM Heart Rate (8867-4) 58 /min Blood Pressure Systolic (8480-6) 124 mm[Hg] Blood Pressure Diastolic (8462-4) 49 mm[Hg] 04/08/2024 01:17 PM Oxygen Saturation (41235-7) 94 % 04/09/2024 06:40 AM Oxygen Saturation (43838-3) 95 % Heart Rate (8867-4) 82 /min Blood Pressure Systolic (8480-6) 128 mm[Hg] Blood Pressure Diastolic (8462-4) 78 mm[Hg] 04/08/2024 08:29 PM Oxygen Saturation (99818-7) 98 % 04/08/2024 08:11 PM Heart Rate (8867-4) 68 /min Blood Pressure Systolic (8480-6) 82 mm[Hg] Blood Pressure Diastolic (8462-4) 54 mm[Hg] 04/09/2024 06:42 PM Heart Rate (8867-4) 62 /min Blood Pressure Systolic (8480-6) 104 mm[Hg] Blood Pressure Diastolic (8462-4) 64 mm[Hg] 04/10/2024 05:51 PM Heart Rate (8867-4) 68 /min Blood Pressure Systolic (8480-6) 124 mm[Hg] Blood Pressure Diastolic (8462-4) 66 mm[Hg] 04/10/2024 06:00 PM Oxygen Saturation (20676-8) 94 % 04/10/2024 06:43 AM Heart Rate (8867-4) 63 /min Blood Pressure Systolic (8480-6) 113 mm[Hg] Blood Pressure Diastolic (8462-4) 60 mm[Hg] 04/10/2024 06:44 AM Oxygen Saturation (22696-8) 91 % 04/11/2024 06:24 PM Heart Rate (8867-4) 61 /min Blood Pressure Systolic (8480-6) 104 mm[Hg] Blood Pressure Diastolic (8462-4) 61 mm[Hg] 04/11/2024 06:07 PM Oxygen Saturation (07539-7) 93 % 04/11/2024 07:53 AM Oxygen Saturation (66838-8) 94 % 04/11/2024 07:40 AM Heart Rate (8867-4) 60 /min Blood Pressure Systolic (8480-6) 110 mm[Hg] Blood Pressure Diastolic (8462-4) 64 mm[Hg] 04/12/2024 06:18 PM Heart Rate (8867-4) 60 /min Blood Pressure Systolic (8480-6) 110 mm[Hg] Blood Pressure Diastolic (8462-4) 61 mm[Hg] 04/12/2024 06:03 PM Oxygen Saturation (66699-6) 93 % 04/12/2024 08:50 AM Oxygen Saturation (88777-4) 94 % 04/12/2024 08:23 AM Heart Rate (8867-4) 61 /min Blood Pressure Systolic (8480-6) 108 mm[Hg] Blood Pressure Diastolic (8462-4) 49 mm[Hg] 04/13/2024 09:38 AM Temperature (8310-5) 97.2 [degF] Oxygen Saturation (07627-6) 91 % Respiratory Rate (9279-1) 17 /min Heart Rate (8867-4) 57 /min 04/13/2024 08:47 AM Body Weight (73365-4) 203.6 [lb_av ] Body Mass Index (22675-5) 39.76 kg/m2 04/13/2024 08:38 AM Oxygen Saturation (75769-7) 91 % 04/13/2024 08:37 AM Heart Rate (8867-4) 57 /min Blood Pressure Systolic (8480-6) 86 mm[Hg] Blood Pressure Diastolic (8462-4) 62 mm[Hg] 04/14/2024 08:36 AM Heart Rate (8867-4) 67 /min 04/14/2024 08:37 AM Oxygen Saturation (12955-1) 93 % Blood Pressure Systolic (8480-6) 140 mm[Hg] Blood Pressure Diastolic (8462-4) 86 mm[Hg] 04/13/2024 06:06 PM Oxygen Saturation (80697-2) 93 % Heart Rate (8867-4) 62 /min Blood Pressure Systolic (8480-6) 107 mm[Hg] Blood Pressure Diastolic (8462-4) 61 mm[Hg] 04/15/2024 07:24 PM Heart Rate (8867-4) 64 /min Blood Pressure Systolic (8480-6) 90 mm[Hg] Blood Pressure Diastolic (8462-4) 53 mm[Hg] 04/15/2024 07:25 AM Oxygen Saturation (88249-6) 90 % Heart Rate (8867-4) 61 /min Blood Pressure Systolic (8480-6) 117 mm[Hg] Blood Pressure Diastolic (8462-4) 53 mm[Hg] 04/14/2024 07:00 PM Heart Rate (8867-4) 61 /min Blood Pressure Systolic (8480-6) 107 mm[Hg] Blood Pressure Diastolic (8462-4) 63 mm[Hg] 04/14/2024 06:59 PM Oxygen Saturation (19697-5) 93 % 04/16/2024 06:09 PM Heart Rate (8867-4) 64 /min Blood Pressure Systolic (8480-6) 104 mm[Hg] Blood Pressure Diastolic (8462-4) 59 mm[Hg] 04/16/2024 06:08 PM Oxygen Saturation (70554-7) 93 % 04/16/2024 08:16 AM Oxygen Saturation (87170-4) 94 % 04/16/2024 07:28 AM Heart Rate (8867-4) 68 /min Blood Pressure Systolic (8480-6) 124 mm[Hg] Blood Pressure Diastolic (8462-4) 70 mm[Hg] 04/16/2024 02:01 AM Oxygen Saturation (09150-7) 92 % 04/17/2024 01:06 PM Oxygen Saturation (99088-6) 94 % 04/17/2024 07:40 AM Heart Rate (8867-4) 65 /min Blood Pressure Systolic (8480-6) 116 mm[Hg] Blood Pressure Diastolic (8462-4) 64 mm[Hg] 04/17/2024 05:44 PM Oxygen Saturation (02502-3) 94 % Heart Rate (8867-4) 63 /min Blood Pressure Systolic (8480-6) 104 mm[Hg] Blood Pressure Diastolic (8462-4) 58 mm[Hg] 04/18/2024 06:26 PM Heart Rate (8867-4) 61 /min Blood Pressure Systolic (8480-6) 104 mm[Hg] Blood Pressure Diastolic (8462-4) 63 mm[Hg] 04/18/2024 06:25 PM Oxygen Saturation (88849-2) 93 % 04/18/2024 09:33 AM Oxygen Saturation (96680-1) 92 % 04/18/2024 09:02 AM Heart Rate (8867-4) 59 /min Blood Pressure Systolic (8480-6) 118 mm[Hg] Blood Pressure Diastolic (8462-4) 43 mm[Hg] 04/19/2024 08:12 AM Oxygen Saturation (28718-6) 94 % 04/19/2024 07:32 AM Heart Rate (8867-4) 68 /min Blood Pressure Systolic (8480-6) 115 mm[Hg] Blood Pressure Diastolic (8462-4) 70 mm[Hg] 04/20/2024 06:08 PM Oxygen Saturation (30278-5) 93 % 04/20/2024 05:32 PM Body Weight (69851-8) 205 [lb_av] Body Mass Index (09371-0) 40.03 kg/m2 04/20/2024 03:06 PM Temperature (8310-5) 97.6 [degF] Respiratory Rate (9279-1) 17 /min 04/20/2024 01:12 PM Oxygen Saturation (01118-8) 95 % 04/20/2024 08:18 AM Heart Rate (8867-4) 69 /min Blood Pressure Systolic (8480-6) 117 mm[Hg] Blood Pressure Diastolic (8462-4) 64 mm[Hg] 04/19/2024 06:38 PM Heart Rate (8867-4) 61 /min Blood Pressure Systolic (8480-6) 102 mm[Hg] Blood Pressure Diastolic (8462-4) 62 mm[Hg] 04/19/2024 06:37 PM Oxygen Saturation (95930-0) 93 % 04/21/2024 12:57 PM Oxygen Saturation (19361-9) 94 % 04/21/2024 07:54 AM Heart Rate (8867-4) 78 /min Blood Pressure Systolic (8480-6) 118 mm[Hg] Blood Pressure Diastolic (8462-4) 69 mm[Hg] 04/20/2024 08:01 PM Heart Rate (8867-4) 64 /min Blood Pressure Systolic (8480-6) 107 mm[Hg] Blood Pressure Diastolic (8462-4) 62 mm[Hg] 04/22/2024 09:37 AM Oxygen Saturation (33713-9) 94 % 04/21/2024 06:34 PM Oxygen Saturation (25135-0) 95 % Heart Rate (8867-4) 70 /min Blood Pressure Systolic (8480-6) 126 mm[Hg] Blood Pressure Diastolic (8462-4) 78 mm[Hg] 04/22/2024 06:55 AM Heart Rate (8867-4) 57 /min Blood Pressure Systolic (8480-6) 94 mm[Hg] Blood Pressure Diastolic (8462-4) 54 mm[Hg] 04/23/2024 08:48 AM Oxygen Saturation (27264-7) 94 % Heart Rate (8867-4) 76 /min Blood Pressure Systolic (8480-6) 124 mm[Hg] Blood Pressure Diastolic (8462-4) 78 mm[Hg] 04/23/2024 01:06 AM Heart Rate (8867-4) 65 /min Blood Pressure Systolic (8480-6) 100 mm[Hg] Blood Pressure Diastolic (8462-4) 58 mm[Hg] 04/22/2024 11:37 PM Oxygen Saturation (47238-2) 92 % 04/24/2024 12:16 AM Oxygen Saturation (63265-8) 96 % Heart Rate (8867-4) 70 /min Blood Pressure Systolic (8480-6) 102 mm[Hg] Blood Pressure Diastolic (8462-4) 58 mm[Hg] 04/24/2024 10:33 PM Heart Rate (8867-4) 57 /min Blood Pressure Systolic (8480-6) 94 mm[Hg] Blood Pressure Diastolic (8462-4) 54 mm[Hg] 04/24/2024 02:42 PM Oxygen Saturation (35829-1) 96 % 04/24/2024 07:42 AM Heart Rate (8867-4) 81 /min Blood Pressure Systolic (8480-6) 112 mm[Hg] Blood Pressure Diastolic (8462-4) 70 mm[Hg] 04/25/2024 06:36 PM Heart Rate (8867-4) 60 /min Blood Pressure Systolic (8480-6) 111 mm[Hg] Blood Pressure Diastolic (8462-4) 62 mm[Hg] 04/25/2024 05:53 AM Oxygen Saturation (76215-5) 96 % 04/25/2024 08:17 AM Heart Rate (8867-4) 62 /min Blood Pressure Systolic (8480-6) 118 mm[Hg] Blood Pressure Diastolic (8462-4) 72 mm[Hg] 04/25/2024 09:38 AM Oxygen Saturation (41892-7) 94 % 04/25/2024 06:33 PM Oxygen Saturation (01966-4) 93 % 04/26/2024 06:02 PM Heart Rate (8867-4) 61 /min Blood Pressure Systolic (8480-6) 107 mm[Hg] Blood Pressure Diastolic (8462-4) 65 mm[Hg] 04/26/2024 06:01 PM Oxygen Saturation (45381-7) 93 % 04/26/2024 07:46 AM Heart Rate (8867-4) 67 /min Blood Pressure Systolic (8480-6) 114 mm[Hg] Blood Pressure Diastolic (8462-4) 72 mm[Hg] 04/26/2024 08:31 AM Oxygen Saturation (12959-8) 94 % 04/27/2024 08:59 AM Temperature (8310-5) 97.8 [degF] Oxygen Saturation (31578-7) 93 % Respiratory Rate (9279-1) 17 /min Heart Rate (8867-4) 59 /min Blood Pressure Systolic (8480-6) 110 mm[Hg] Blood Pressure Diastolic (8462-4) 62 mm[Hg] 04/27/2024 08:58 AM Oxygen Saturation (09821-0) 93 % Body Weight (42060-9) 208.4 [lb_av] Body Mass Index (63838-4) 40.7 kg/m2 04/27/2024 06:02 PM Heart Rate (8867-4) 62 /min Blood Pressure Systolic (8480-6) 107 mm[Hg] Blood Pressure Diastolic (8462-4) 64 mm[Hg] 04/27/2024 06:01 PM Oxygen Saturation (18395-7) 93 % 04/27/2024 06:42 AM Heart Rate (8867-4) 59 /min Blood Pressure Systolic (8480-6) 110 mm[Hg] Blood Pressure Diastolic (8462-4) 62 mm[Hg] 04/28/2024 06:10 PM Heart Rate (8867-4) 66 /min Blood Pressure Systolic (8480-6) 115 mm[Hg] Blood Pressure Diastolic (8462-4) 68 mm[Hg] 04/28/2024 08:34 AM Oxygen Saturation (09587-7) 93 % 04/28/2024 06:19 AM Heart Rate (8867-4) 63 /min Blood Pressure Systolic (8480-6) 113 mm[Hg] Blood Pressure Diastolic (8462-4) 56 mm[Hg] 04/29/2024 06:36 AM Heart Rate (8867-4) 60 /min Blood Pressure Systolic (8480-6) 117 mm[Hg] Blood Pressure Diastolic (8462-4) 70 mm[Hg] 04/29/2024 06:40 AM Oxygen Saturation (25042-6) 98 % 04/28/2024 07:22 PM Oxygen Saturation (89851-1) 93 % 04/30/2024 07:37 AM Heart Rate (8867-4) 60 /min Blood Pressure Systolic (8480-6) 110 mm[Hg] Blood Pressure Diastolic (8462-4) 63 mm[Hg] 04/29/2024 06:40 PM Heart Rate (8867-4) 57 /min Blood Pressure Systolic (8480-6) 108 mm[Hg] Blood Pressure Diastolic (8462-4) 62 mm[Hg] 04/30/2024 12:20 AM Oxygen Saturation (18455-7) 96 % 04/30/2024 01:19 PM Oxygen Saturation (08350-9) 96 % 05/01/2024 07:27 AM Heart Rate (8867-4) 63 /min Blood Pressure Systolic (8480-6) 112 mm[Hg] Blood Pressure Diastolic (8462-4) 60 mm[Hg] 04/30/2024 06:12 PM Body Weight (82317-5) 205.6 [lb_av ] Body Mass Index (60769-4) 40.15 kg/m2 04/30/2024 10:12 PM Heart Rate (8867-4) 55 /min Blood Pressure Systolic (8480-6) 103 mm[Hg] Blood Pressure Diastolic (8462-4) 62 mm[Hg] 05/01/2024 08:00 AM Oxygen Saturation (85965-6) 96 % 04/30/2024 07:24 PM Oxygen Saturation (47589-1) 98 % 05/01/2024 07:05 PM Heart Rate (8867-4) 65 /min Blood Pressure Systolic (8480-6) 107 mm[Hg] Blood Pressure Diastolic (8462-4) 64 mm[Hg] 05/02/2024 05:40 AM Oxygen Saturation (61010-2) 92 % 05/02/2024 07:26 AM Oxygen Saturation (16897-2) 94 % 05/02/2024 06:47 PM Heart Rate (8867-4) 77 /min Blood Pressure Systolic (8480-6) 128 mm[Hg] Blood Pressure Diastolic (8462-4) 70 mm[Hg] 05/02/2024 06:46 PM Oxygen Saturation (52751-5) 95 % 05/02/2024 07:25 AM Heart Rate (8867-4) 65 /min Blood Pressure Systolic (8480-6) 121 mm[Hg] Blood Pressure Diastolic (8462-4) 62 mm[Hg] 05/03/2024 08:55 AM Oxygen Saturation (19780-5) 94 % 05/03/2024 08:11 AM Heart Rate (8867-4) 70 /min Blood Pressure Systolic (8480-6) 134 mm[Hg] Blood Pressure Diastolic (8462-4) 75 mm[Hg] 05/04/2024 07:37 AM Oxygen Saturation (95556-6) 94 % 05/04/2024 06:10 PM Oxygen Saturation (09414-0) 93 % 05/03/2024 06:30 PM Oxygen Saturation (93773-6) 94 % Heart Rate (8867-4) 65 /min Blood Pressure Systolic (8480-6) 122 mm[Hg] Blood Pressure Diastolic (8462-4) 62 mm[Hg] 05/04/2024 11:01 AM Temperature (8310-5) 97.9 [degF] Respiratory Rate (9279-1) 17 /min 05/04/2024 06:11 PM Heart Rate (8867-4) 62 /min Blood Pressure Systolic (8480-6) 114 mm[Hg] Blood Pressure Diastolic (8462-4) 62 mm[Hg] 05/04/2024 07:34 AM Heart Rate (8867-4) 65 /min Blood Pressure Systolic (8480-6) 128 mm[Hg] Blood Pressure Diastolic (8462-4) 71 mm[Hg] 05/05/2024 06:14 PM Heart Rate (8867-4) 76 /min Blood Pressure Systolic (8480-6) 122 mm[Hg] Blood Pressure Diastolic (8462-4) 74 mm[Hg] 05/05/2024 05:36 PM Oxygen Saturation (95269-5) 94 % 05/05/2024 06:12 AM Heart Rate (8867-4) 68 /min Blood Pressure Systolic (8480-6) 118 mm[Hg] Blood Pressure Diastolic (8462-4) 61 mm[Hg] 05/05/2024 06:11 AM Oxygen Saturation (36917-7) 95 % 05/06/2024 06:24 AM Oxygen Saturation (66283-4) 90 % 05/06/2024 06:23 AM Heart Rate (8867-4) 60 /min Blood Pressure Systolic (8480-6) 132 mm[Hg] Blood Pressure Diastolic (8462-4) 67 mm[Hg] 05/07/2024 08:20 AM Oxygen Saturation (63992-2) 96 % Heart Rate (8867-4) 61 /min Blood Pressure Systolic (8480-6) 115 mm[Hg] Blood Pressure Diastolic (8462-4) 66 mm[Hg] 05/06/2024 08:57 PM Oxygen Saturation (72458-5) 96 % 05/06/2024 07:21 PM Heart Rate (8867-4) 61 /min Blood Pressure Systolic (8480-6) 87 mm[Hg] Blood Pressure Diastolic (8462-4) 55 mm[Hg] 05/07/2024 07:34 PM Oxygen Saturation (91562-4) 92 % Heart Rate (8867-4) 63 /min Blood Pressure Systolic (8480-6) 87 mm[Hg] Blood Pressure Diastolic (8462-4) 58 mm[Hg] 05/08/2024 07:35 PM Heart Rate (8867-4) 63 /min Blood Pressure Systolic (8480-6) 113 mm[Hg] Blood Pressure Diastolic (8462-4) 68 mm[Hg] 05/08/2024 07:27 PM Oxygen Saturation (80323-4) 95 % 05/08/2024 12:20 PM Oxygen Saturation (93011-4) 95 % 05/09/2024 07:35 AM Heart Rate (8867-4) 69 /min Blood Pressure Systolic (8480-6) 124 mm[Hg] Blood Pressure Diastolic (8462-4) 64 mm[Hg] 05/09/2024 08:48 AM Oxygen Saturation (05816-7) 94 % 05/09/2024 06:01 PM Oxygen Saturation (68148-7) 93 % 05/10/2024 06:04 PM Oxygen Saturation (05893-9) 94 % 05/10/2024 08:00 PM Heart Rate (8867-4) 65 /min Blood Pressure Systolic (8480-6) 104 mm[Hg] Blood Pressure Diastolic (8462-4) 64 mm[Hg] 05/10/2024 08:13 AM Heart Rate (8867-4) 69 /min Blood Pressure Systolic (8480-6) 115 mm[Hg] Blood Pressure Diastolic (8462-4) 67 mm[Hg] 05/09/2024 06:50 PM Heart Rate (8867-4) 64 /min Blood Pressure Systolic (8480-6) 107 mm[Hg] Blood Pressure Diastolic (8462-4) 63 mm[Hg] 05/10/2024 08:00 AM Oxygen Saturation (32940-9) 94 % 05/11/2024 06:04 PM Heart Rate (8867-4) 64 /min Blood Pressure Systolic (8480-6) 109 mm[Hg] Blood Pressure Diastolic (8462-4) 63 mm[Hg] 05/11/2024 06:03 PM Oxygen Saturation (45721-9) 94 % 05/11/2024 10:17 AM Oxygen Saturation (42782-9) 90 % 05/11/2024 10:01 AM Temperature (8310-5) 97.5 [degF] Oxygen Saturation (28071-9) 90 % Respiratory Rate (9279-1) 17 /min Heart Rate (8867-4) 65 /min Blood Pressure Systolic (8480-6) 114 mm[Hg] Blood Pressure Diastolic (8462-4) 72 mm[Hg] 05/11/2024 06:32 AM Heart Rate (8867-4) 65 /min Blood Pressure Systolic (8480-6) 114 mm[Hg] Blood Pressure Diastolic (8462-4) 72 mm[Hg] 05/12/2024 06:55 PM Heart Rate (8867-4) 65 /min Blood Pressure Systolic (8480-6) 119 mm[Hg] Blood Pressure Diastolic (8462-4) 66 mm[Hg] 05/12/2024 06:54 PM Oxygen Saturation (74278-6) 94 % 05/12/2024 11:54 AM Oxygen Saturation (13177-3) 93 % 05/12/2024 07:41 AM Heart Rate (8867-4) 80 /min Blood Pressure Systolic (8480-6) 126 mm[Hg] Blood Pressure Diastolic (8462-4) 81 mm[Hg] 05/13/2024 10:19 AM Oxygen Saturation (23053-1) 94 % 05/13/2024 07:45 AM Heart Rate (8867-4) 61 /min Blood Pressure Systolic (8480-6) 107 mm[Hg] Blood Pressure Diastolic (8462-4) 64 mm[Hg] 05/13/2024 08:45 PM Oxygen Saturation (12152-6) 93 % 05/13/2024 08:13 PM Heart Rate (8867-4) 59 /min Blood Pressure Systolic (8480-6) 62 mm[Hg] Blood Pressure Diastolic (8462-4) 59 mm[Hg] 05/14/2024 10:28 PM Oxygen Saturation (56244-5) 94 % 05/14/2024 07:04 PM Heart Rate (8867-4) 62 /min Blood Pressure Systolic (8480-6) 94 mm[Hg] Blood Pressure Diastolic (8462-4) 50 mm[Hg] 05/14/2024 07:49 AM Oxygen Saturation (36341-9) 94 % 05/14/2024 07:47 AM Heart Rate (8867-4) 63 /min Blood Pressure Systolic (8480-6) 127 mm[Hg] Blood Pressure Diastolic (8462-4) 64 mm[Hg] 05/15/2024 09:07 AM Oxygen Saturation (61600-4) 94 % 05/15/2024 07:19 AM Heart Rate (8867-4) 67 /min Blood Pressure Systolic (8480-6) 117 mm[Hg] Blood Pressure Diastolic (8462-4) 68 mm[Hg] 05/16/2024 12:00 AM Oxygen Saturation (47084-4) 96 % 05/15/2024 07:11 PM Heart Rate (8867-4) 66 /min Blood Pressure Systolic (8480-6) 132 mm[Hg] Blood Pressure Diastolic (8462-4) 66 mm[Hg] 05/16/2024 06:11 PM Oxygen Saturation (61479-3) 94 % 05/16/2024 06:53 AM Oxygen Saturation (95858-3) 92 % Heart Rate (8867-4) 73 /min Blood Pressure Systolic (8480-6) 132 mm[Hg] Blood Pressure Diastolic (8462-4) 56 mm[Hg] 05/17/2024 08:33 AM Oxygen Saturation (05531-7) 94 % 05/18/2024 02:09 PM Temperature (8310-5) 97.6 [degF] Oxygen Saturation (02268-7) 94 % Respiratory Rate (9279-1) 17 /min Heart Rate (8867-4) 64 /min Blood Pressure Systolic (8480-6) 124 mm[Hg] Blood Pressure Diastolic (8462-4) 66 mm[Hg] 05/17/2024 06:04 PM Oxygen Saturation (69498-2) 93 % 05/19/2024 08:41 AM Oxygen Saturation (00948-3) 94 % 05/18/2024 06:07 PM Oxygen Saturation (73878-0) 93 % 05/20/2024 10:44 AM Oxygen Saturation (91898-7) 98 % 05/19/2024 06:58 PM Oxygen Saturation (72118-5) 93 % 05/25/2024 06:52 PM Temperature (8310-5) 97.5 [degF] Oxygen Saturation (08346-7) 93 % Respiratory Rate (9279-1) 18 /min Heart Rate (8867-4) 87 /min Blood Pressure Systolic (8480-6) 105 mm[Hg] Blood Pressure Diastolic (8462-4) 60 mm[Hg] 05/25/2024 03:35 PM Body Height (8302-2) 60 [in_us] Body Weight (31786-5) 196.8 [lb_av] Body Mass Index (54949-0) 38.43 kg/m2 05/25/2024 03:20 PM Temperature (8310-5) 97.5 [degF] Oxygen Saturation (77881-0) 93 % Respiratory Rate (9279-1) 18 /min Heart Rate (8867-4) 80 /min Blood Pressure Systolic (8480-6) 100 mm[Hg] Blood Pressure Diastolic (8462-4) 85 mm[Hg] 05/26/2024 11:24 AM Body Weight (03056-4) 196.6 [lb_av ] Body Mass Index (30457-4) 38.39 kg/m2 05/26/2024 09:01 AM Temperature (8310-5) 97.7 [degF] Respiratory Rate (9279-1) 19 /min Heart Rate (8867-4) 80 /min 05/26/2024 06:42 AM Temperature (8310-5) 97.7 [degF] Oxygen Saturation (11653-0) 95 % Respiratory Rate (9279-1) 19 /min Heart Rate (8867-4) 80 /min Blood Pressure Systolic (8480-6) 125 mm[Hg] Blood Pressure Diastolic (8462-4) 68 mm[Hg] 05/26/2024 06:36 PM Temperature (8310-5) 97.6 [degF] Oxygen Saturation (43002-0) 93 % Respiratory Rate (9279-1) 18 /min Heart Rate (8867-4) 76 /min Blood Pressure Systolic (8480-6) 115 mm[Hg] Blood Pressure Diastolic (8462-4) 66 mm[Hg] 05/27/2024 09:00 PM Temperature (8310-5) 97.9 [degF] Oxygen Saturation (08797-2) 93 % Respiratory Rate (9279-1) 16 /min Heart Rate (8867-4) 73 /min Blood Pressure Systolic (8480-6) 116 mm[Hg] Blood Pressure Diastolic (8462-4) 64 mm[Hg] 05/27/2024 08:59 PM Temperature (8310-5) 97.9 [degF] Oxygen Saturation (28994-8) 93 % Respiratory Rate (9279-1) 16 /min Heart Rate (8867-4) 73 /min Blood Pressure Systolic (8480-6) 116 mm[Hg] Blood Pressure Diastolic (8462-4) 64 mm[Hg] 05/27/2024 11:17 AM Body Weight (26935-6) 190.6 [lb_av ] Body Mass Index (99981-9) 37.22 kg/m2 05/27/2024 08:37 AM Temperature (8310-5) 98.6 [degF] Oxygen Saturation (22198-9) 97 % Respiratory Rate (9279-1) 20 /min Heart Rate (8867-4) 85 /min Blood Pressure Systolic (8480-6) 156 mm[Hg] Blood Pressure Diastolic (8462-4) 86 mm[Hg] 05/27/2024 08:36 AM Temperature (8310-5) 98.5 [degF] Oxygen Saturation (75991-4) 97 % Respiratory Rate (9279-1) 20 /min Heart Rate (8867-4) 85 /min Blood Pressure Systolic (8480-6) 156 mm[Hg] Blood Pressure Diastolic (8462-4) 86 mm[Hg] 05/28/2024 10:08 AM Temperature (8310-5) 96.8 [degF] Oxygen Saturation (57012-7) 99 % Respiratory Rate (9279-1) 16 /min Heart Rate (8867-4) 64 /min Blood Pressure Systolic (8480-6) 110 mm[Hg] Blood Pressure Diastolic (8462-4) 68 mm[Hg] 05/28/2024 09:00 AM Body Weight (80603-0) 190.3 [lb_av ] Body Mass Index (80390-9) 37.16 kg/m2 05/29/2024 11:30 AM Temperature (8310-5) 98.3 [degF] Oxygen Saturation (57028-3) 96 % Respiratory Rate (9279-1) 17 /min Heart Rate (8867-4) 64 /min Blood Pressure Systolic (8480-6) 106 mm[Hg] Blood Pressure Diastolic (8462-4) 86 mm[Hg] 05/29/2024 02:07 AM Temperature (8310-5) 98.6 [degF] Oxygen Saturation (92115-5) 96 % Respiratory Rate (9279-1) 17 /min Heart Rate (8867-4) 64 /min Blood Pressure Systolic (8480-6) 118 mm[Hg] Blood Pressure Diastolic (8462-4) 59 mm[Hg] 05/30/2024 03:06 AM Oxygen Saturation (97589-4) 94 % 05/30/2024 07:26 PM Temperature (8310-5) 98.6 [degF] Respiratory Rate (9279-1) 21 /min Heart Rate (8867-4) 78 /min Blood Pressure Systolic (8480-6) 124 mm[Hg] Blood Pressure Diastolic (8462-4) 61 mm[Hg] 05/30/2024 06:16 PM Oxygen Saturation (11076-2) 93 % 05/30/2024 12:51 PM Body Weight (49489-7) 190.6 [lb_av ] Body Mass Index (09693-5) 37.22 kg/m2 05/30/2024 07:47 AM Temperature (8310-5) 98 [degF] Oxygen Saturation (14795-2) 90 % Respiratory Rate (9279-1) 20 /min Heart Rate (8867-4) 76 /min Blood Pressure Systolic (8480-6) 118 mm[Hg] Blood Pressure Diastolic (8462-4) 66 mm[Hg] 05/30/2024 06:29 AM Temperature (8310-5) 98.6 [degF] Oxygen Saturation (86565-2) 94 % Respiratory Rate (9279-1) 18 /min Heart Rate (8867-4) 76 /min Blood Pressure Systolic (8480-6) 130 mm[Hg] Blood Pressure Diastolic (8462-4) 78 mm[Hg] 05/30/2024 06:28 AM Temperature (8310-5) 98.6 [degF] Oxygen Saturation (98721-3) 94 % Respiratory Rate (9279-1) 18 /min Heart Rate (8867-4) 76 /min Blood Pressure Systolic (8480-6) 130 mm[Hg] Blood Pressure Diastolic (8462-4) 78 mm[Hg] 05/31/2024 10:02 AM Oxygen Saturation (29651-8) 95 % 06/01/2024 10:35 AM Body Weight (67835-4) 197.4 [lb_av ] Body Mass Index (69983-8) 38.55 kg/m2 06/01/2024 09:53 AM Oxygen Saturation (22754-5) 92 % 05/31/2024 06:36 PM Oxygen Saturation (71749-8) 93 % 05/31/2024 04:21 PM Body Weight (54074-4) 197.6 [lb_av ] Body Mass Index (13580-3) 38.59 kg/m2 06/02/2024 12:49 PM Oxygen Saturation (23897-7) 94 % Body Weight (98242-4) 198.4 [lb_av] Body Mass Index (19090-5) 38.74 kg/m2 06/01/2024 06:26 PM Oxygen Saturation (34014-5) 93 % 06/03/2024 01:05 PM Oxygen Saturation (18887-2) 93 % 06/02/2024 06:45 PM Oxygen Saturation (09036-0) 95 % 06/03/2024 11:43 PM Oxygen Saturation (25262-3) 96 % 06/04/2024 08:12 AM Oxygen Saturation (91620-8) 90 % 06/05/2024 07:04 AM Oxygen Saturation (91205-1) 96 % 06/05/2024 12:19 AM Oxygen Saturation (72738-8) 98 % 06/05/2024 10:22 PM Oxygen Saturation (68532-9) 98 % 06/06/2024 07:40 PM Oxygen Saturation (39968-4) 93 % 06/06/2024 07:56 AM Oxygen Saturation (50285-3) 94 % 06/07/2024 09:58 AM Oxygen Saturation (59603-9) 93 % 06/07/2024 06:43 PM Oxygen Saturation (84901-7) 93 % 06/08/2024 09:33 AM Oxygen Saturation (44661-1) 90 % 06/08/2024 03:10 PM Body Weight (30565-8) 197.8 [lb_av ] Body Mass Index (20505-1) 38.63 kg/m2 06/08/2024 06:28 PM Oxygen Saturation (79289-1) 93 % 06/09/2024 08:32 AM Oxygen Saturation (06675-4) 94 % 06/09/2024 06:52 PM Oxygen Saturation (01156-7) 93 % 06/10/2024 09:19 AM Oxygen Saturation (85255-6) 94 % 06/10/2024 07:36 PM Oxygen Saturation (94099-3) 92 % 06/11/2024 08:42 AM Oxygen Saturation (12177-0) 94 % 06/11/2024 08:38 PM Oxygen Saturation (09018-3) 92 % 06/12/2024 09:34 AM Oxygen Saturation (23609-7) 94 % 06/12/2024 07:50 PM Oxygen Saturation (76684-7) 93 % 06/13/2024 03:37 PM Oxygen Saturation (08364-2) 94 % 06/14/2024 08:34 AM Oxygen Saturation (04928-3) 94 % 06/13/2024 06:12 PM Oxygen Saturation (37118-4) 93 % 06/14/2024 06:19 PM Oxygen Saturation (66432-8) 93 % 06/15/2024 04:20 PM Body Weight (05281-9) 200 [lb_av] Body Mass Index (80610-7) 39.06 kg/m2 06/15/2024 01:58 PM Oxygen Saturation (19853-5) 96 % 06/15/2024 07:03 PM Oxygen Saturation (27813-7) 97 % 06/16/2024 10:03 AM Oxygen Saturation (16471-2) 95 % 06/16/2024 06:48 PM Oxygen Saturation (30477-8) 94 % 06/17/2024 10:35 AM Oxygen Saturation (97602-5) 95 % 06/18/2024 08:19 AM Oxygen Saturation (76772-3) 95 % 06/18/2024 03:32 AM Oxygen Saturation (22908-9) 97 % 06/18/2024 07:38 PM Oxygen Saturation (36794-2) 93 % 06/19/2024 06:51 AM Oxygen Saturation (48582-1) 92 % 06/19/2024 10:05 PM Oxygen Saturation (37531-4) 97 % 06/20/2024 01:10 PM Oxygen Saturation (69420-3) 95 % 06/20/2024 06:15 PM Oxygen Saturation (38224-2) 93 % 06/21/2024 09:14 AM Oxygen Saturation (53221-1) 95 % 06/21/2024 06:02 PM Oxygen Saturation (19833-3) 93 % 06/22/2024 09:36 AM Oxygen Saturation (01558-1) 92 % 06/22/2024 03:19 PM Body Weight (13162-0) 200.8 [lb_av ] Body Mass Index (40828-4) 39.21 kg/m2 06/22/2024 07:00 PM Oxygen Saturation (38317-4) 98 % 06/23/2024 06:26 AM Oxygen Saturation (94816-2) 92 % 06/23/2024 06:31 PM Oxygen Saturation (48550-4) 94 % 06/24/2024 02:01 PM Oxygen Saturation (61022-6) 90 % 06/24/2024 11:03 PM Oxygen Saturation (77070-8) 98 % 06/25/2024 10:03 AM Oxygen Saturation (55160-7) 94 % 06/25/2024 07:44 PM Oxygen Saturation (66336-5) 93 % 06/26/2024 07:35 AM Oxygen Saturation (92502-4) 94 % 06/27/2024 07:34 AM Oxygen Saturation (52854-0) 87 % 06/27/2024 05:12 AM Oxygen Saturation (31216-6) 98 % 06/27/2024 06:28 PM Oxygen Saturation (62351-5) 94 % 06/28/2024 11:59 AM Oxygen Saturation (31992-9) 95 % 06/28/2024 11:58 AM Body Weight (37550-0) 201.2 [lb_av ] Body Mass Index (11746-4) 39.29 kg/m2 06/28/2024 11:28 PM Oxygen Saturation (96831-5) 91 % 06/29/2024 04:31 PM Body Weight (51378-8) 201.4 [lb_av ] Body Mass Index (23129-4) 39.33 kg/m2 06/29/2024 04:32 PM Oxygen Saturation (37186-7) 93 % 06/29/2024 08:17 PM Oxygen Saturation (21941-3) 96 % 06/30/2024 09:49 AM Oxygen Saturation (89355-4) 94 % 06/30/2024 10:21 AM Body Weight (21528-7) 200 [lb_av] Body Mass Index (26167-7) 39.06 kg/m2 06/30/2024 08:17 PM Oxygen Saturation (80962-8) 96 % 07/01/2024 08:38 AM Oxygen Saturation (51904-0) 94 % 07/01/2024 10:57 AM Body Weight (96858-4) 201.1 [lb_av ] Body Mass Index (37419-4) 39.27 kg/m2 07/02/2024 01:32 AM Oxygen Saturation (34632-6) 98 % 07/02/2024 09:36 AM Oxygen Saturation (11747-0) 92 % 07/03/2024 12:09 AM Oxygen Saturation (67013-3) 98 % 07/03/2024 08:19 AM Oxygen Saturation (56795-5) 97 % 07/03/2024 09:40 PM Oxygen Saturation (07439-0) 92 % 07/04/2024 07:47 AM Oxygen Saturation (29547-9) 93 % 07/04/2024 06:15 PM Oxygen Saturation (99960-0) 93 % 07/05/2024 08:38 AM Oxygen Saturation (17366-2) 94 % 07/05/2024 06:57 PM Oxygen Saturation (87782-4) 95 % 07/06/2024 08:39 AM Oxygen Saturation (36020-6) 95 % 07/06/2024 06:42 PM Oxygen Saturation (26602-8) 93 % 07/07/2024 05:38 PM Oxygen Saturation (71274-0) 91 % 07/08/2024 08:49 AM Oxygen Saturation (98255-7) 100 % 07/08/2024 03:01 AM Oxygen Saturation (17376-0) 93 % 07/09/2024 12:02 AM Oxygen Saturation (88502-4) 93 % 07/09/2024 12:06 PM Oxygen Saturation (19381-2) 96 % 07/09/2024 08:49 PM Oxygen Saturation (98011-4) 92 % 07/10/2024 01:45 PM Oxygen Saturation (45610-0) 94 % 07/10/2024 07:58 PM Oxygen Saturation (52922-3) 95 % 07/11/2024 09:33 AM Oxygen Saturation (27143-6) 95 % 07/11/2024 08:25 PM Oxygen Saturation (30365-0) 94 % 07/12/2024 08:08 AM Oxygen Saturation (45871-9) 95 % 07/12/2024 06:29 PM Oxygen Saturation (95895-0) 96 % 07/13/2024 02:20 PM Oxygen Saturation (25271-1) 94 % 07/13/2024 02:21 PM Temperature (8310-5) 98.2 [degF] Respiratory Rate (9279-1) 16 /min Heart Rate (8867-4) 72 /min Blood Pressure Systolic (8480-6) 111 mm[Hg] Blood Pressure Diastolic (8462-4) 66 mm[Hg] 07/13/2024 07:12 PM Oxygen Saturation (16971-1) 96 % 07/14/2024 08:32 AM Oxygen Saturation (76253-5) 93 % 07/14/2024 07:04 PM Oxygen Saturation (41027-7) 94 % 07/15/2024 03:10 PM Oxygen Saturation (59114-9) 93 % 07/15/2024 07:54 PM Oxygen Saturation (49794-9) 92 % 07/16/2024 08:41 AM Oxygen Saturation (67045-0) 92 % 07/16/2024 09:07 PM Oxygen Saturation (65122-6) 98 % 07/17/2024 09:21 AM Oxygen Saturation (89222-7) 93 % 07/17/2024 07:50 PM Oxygen Saturation (95936-2) 96 % 07/18/2024 10:14 AM Oxygen Saturation (86326-8) 94 % 07/18/2024 06:25 PM Oxygen Saturation (76421-5) 95 % 07/19/2024 08:59 AM Oxygen Saturation (71852-2) 94 % 07/19/2024 07:02 PM Oxygen Saturation (01412-3) 94 % 07/20/2024 06:06 PM Oxygen Saturation (53834-6) 93 % 07/20/2024 10:44 AM Temperature (8310-5) 97.3 [degF] Oxygen Saturation (98560-8) 90 % Respiratory Rate (9279-1) 15 /min Heart Rate (8867-4) 70 /min Blood Pressure Systolic (8480-6) 113 mm[Hg] Blood Pressure Diastolic (8462-4) 58 mm[Hg] 07/21/2024 01:19 PM Oxygen Saturation (34047-4) 92 % 07/21/2024 06:23 PM Oxygen Saturation (39530-1) 94 % 07/22/2024 08:56 AM Oxygen Saturation (13808-5) 93 % 07/22/2024 07:55 PM Oxygen Saturation (09973-9) 93 % 07/23/2024 08:55 AM Oxygen Saturation (90790-4) 94 % 07/24/2024 08:24 AM Oxygen Saturation (41823-2) 92 % 07/23/2024 06:53 PM Oxygen Saturation (79333-9) 90 % 07/25/2024 09:23 AM Oxygen Saturation (96519-0) 85 % 07/25/2024 04:53 AM Oxygen Saturation (22814-2) 94 % Respiratory Rate (9279-1) 16 /min Heart Rate (8867-4) 73 /min 07/25/2024 04:37 AM Oxygen Saturation (61883-9) 91 % Respiratory Rate (9279-1) 16 /min Heart Rate (8867-4) 80 /min 07/25/2024 03:49 AM Oxygen Saturation (98850-6) 94 % 07/25/2024 06:12 PM Oxygen Saturation (84265-4) 94 % 07/26/2024 10:00 AM Oxygen Saturation (59932-3) 94 % 07/26/2024 07:03 PM Oxygen Saturation (46486-5) 93 % 07/27/2024 02:49 PM Temperature (8310-5) 97.1 [degF] Respiratory Rate (9279-1) 15 /min Heart Rate (8867-4) 56 /min Blood Pressure Systolic (8480-6) 103 mm[Hg] Blood Pressure Diastolic (8462-4) 88 mm[Hg] 07/27/2024 02:48 PM Oxygen Saturation (45947-7) 98 % 07/27/2024 06:04 PM Oxygen Saturation (08663-0) 95 % 07/28/2024 02:59 PM Oxygen Saturation (32240-6) 95 % Body Weight (05501-2) 205 [lb_av] Body Mass Index (24141-7) 40.03 kg/m2 07/28/2024 06:31 PM Oxygen Saturation (42007-8) 96 % 07/29/2024 11:37 AM Oxygen Saturation (95541-5) 95 % 07/30/2024 05:52 AM Oxygen Saturation (26674-1) 98 % 07/30/2024 09:38 AM Oxygen Saturation (70815-2) 94 % 07/30/2024 10:30 PM Oxygen Saturation (83529-7) 92 % 07/31/2024 08:21 AM Oxygen Saturation (50109-4) 90 % 07/31/2024 03:46 PM Body Weight (55017-8) 204.4 [lb_av ] Body Mass Index (59835-1) 39.91 kg/m2 08/01/2024 12:58 AM Oxygen Saturation (82983-0) 92 % 08/01/2024 12:10 PM Oxygen Saturation (23009-7) 94 % 08/01/2024 05:15 PM Body Weight (80903-5) 204.8 [lb_av ] Body Mass Index (53833-2) 39.99 kg/m2 11/27/2024 08:22 AM Heart Rate (8867-4) 93 /min 12/01/2024 09:22 AM Oxygen Saturation (11861-9) 94 % 11/28/2024 10:12 AM Oxygen Saturation (57533-7) 90 % 11/27/2024 08:53 AM Respiratory Rate (9279-1) 24 /min 11/29/2024 06:55 PM Oxygen Saturation (84219-3) 94 % 11/21/2024 05:06 AM Respiratory Rate (9279-1) 20 /min Heart Rate (8867-4) 70 /min 11/30/2024 06:08 PM Oxygen Saturation (49048-4) 92 % 10/19/2024 02:21 PM Temperature (8310-5) 98.1 [degF] Blood Pressure Systolic (8480-6) 111 mm[Hg] Blood Pressure Diastolic (8462-4) 63 mm[Hg] 11/28/2024 06:16 PM Oxygen Saturation (81976-4) 94 % 12/02/2024 07:05 AM Oxygen Saturation (46043-5) 95 % 10/12/2024 09:51 AM Temperature (8310-5) 97.7 [degF] Blood Pressure Systolic (8480-6) 105 mm[Hg] Blood Pressure Diastolic (8462-4) 54 mm[Hg] 12/01/2024 07:48 PM Oxygen Saturation (41949-2) 93 % 11/30/2024 02:58 PM Temperature (8310-5) 97.2 [degF] Oxygen Saturation (20270-9) 93 % Respiratory Rate (9279-1) 20 /min Heart Rate (8867-4) 82 /min Blood Pressure Systolic (8480-6) 107 mm[Hg] Blood Pressure Diastolic (8462-4) 56 mm[Hg] 11/20/2024 01:51 PM Respiratory Rate (9279-1) 24 /min Heart Rate (8867-4) 70 /min 10/05/2024 03:05 PM Temperature (8310-5) 98 [degF] Blood Pressure Systolic (8480-6) 107 mm[Hg] Blood Pressure Diastolic (8462-4) 56 mm[Hg] 11/09/2024 09:07 AM Temperature (8310-5) 98.3 [degF] Respiratory Rate (9279-1) 20 /min Heart Rate (8867-4) 67 /min Blood Pressure Systolic (8480-6) 110 mm[Hg] Blood Pressure Diastolic (8462-4) 58 mm[Hg] 11/29/2024 07:29 AM Oxygen Saturation (52358-8) 94 % 11/27/2024 03:39 AM Respiratory Rate (9279-1) 20 /min Heart Rate (8867-4) 87 /min 11/20/2024 03:03 PM Respiratory Rate (9279-1) 24 /min Heart Rate (8867-4) 72 /min 10/26/2024 06:54 AM Temperature (8310-5) 98.4 [degF] Blood Pressure Systolic (8480-6) 136 mm[Hg] Blood Pressure Diastolic (8462-4) 68 mm[Hg] 10/28/2024 07:08 PM Body Weight (09814-9) 210.6 [lb_av ] Body Mass Index (88171-5) 41.13 kg/m2 11/23/2024 09:59 AM Temperature (8310-5) 97.7 [degF] Respiratory Rate (9279-1) 21 /min Heart Rate (8867-4) 93 /min Blood Pressure Systolic (8480-6) 102 mm[Hg] Blood Pressure Diastolic (8462-4) 61 mm[Hg] 11/16/2024 02:29 PM Temperature (8310-5) 97.9 [degF] Respiratory Rate (9279-1) 18 /min Heart Rate (8867-4) 68 /min Blood Pressure Systolic (8480-6) 106 mm[Hg] Blood Pressure Diastolic (8462-4) 62 mm[Hg] 09/28/2024 10:10 AM Temperature (8310-5) 97.1 [degF] Blood Pressure Systolic (8480-6) 124 mm[Hg] Blood Pressure Diastolic (8462-4) 59 mm[Hg] 11/28/2024 04:30 PM Body Weight (90806-3) 207 [lb_av] Body Mass Index (99977-7) 40.42 kg/m2 11/02/2024 05:45 PM Temperature (8310-5) 97.3 [degF] Respiratory Rate (9279-1) 18 /min Heart Rate (8867-4) 74 /min Blood Pressure Systolic (8480-6) 137 mm[Hg] Blood Pressure Diastolic (8462-4) 69 mm[Hg] 11/27/2024 08:03 PM Oxygen Saturation (91392-8) 92 % 09/27/2024 01:42 PM Body Weight (89581-4) 208.8 [lb_av ] Body Mass Index (02267-8) 40.77 kg/m2 12/02/2024 09:05 PM Oxygen Saturation (50025-0) 94 % 12/03/2024 06:04 AM Oxygen Saturation (14471-0) 94 % 12/03/2024 07:23 PM Oxygen Saturation (48091-1) 95 % 12/04/2024 06:24 PM Oxygen Saturation (30295-9) 95 % 12/04/2024 03:14 PM Oxygen Saturation (13918-4) 96 % 12/05/2024 09:15 AM Oxygen Saturation (25360-3) 94 % 12/05/2024 06:12 PM Oxygen Saturation (80542-4) 94 % 12/06/2024 06:40 AM Oxygen Saturation (64151-1) 97 % 12/06/2024 06:59 PM Oxygen Saturation (32869-2) 94 % 12/07/2024 03:11 PM Temperature (8310-5) 97.5 [degF] Oxygen Saturation (46964-5) 91 % Respiratory Rate (9279-1) 18 /min Heart Rate (8867-4) 71 /min Blood Pressure Systolic (8480-6) 135 mm[Hg] Blood Pressure Diastolic (8462-4) 75 mm[Hg] 12/07/2024 11:12 AM Oxygen Saturation (20582-5) 91 % 12/07/2024 07:13 PM Oxygen Saturation (21861-3) 94 % 12/08/2024 10:30 AM Oxygen Saturation (73621-2) 93 % 12/08/2024 06:24 PM Oxygen Saturation (49950-2) 94 % 12/09/2024 03:37 PM Oxygen Saturation (21648-2) 90 % 12/09/2024 11:39 PM Oxygen Saturation (26669-8) 89 % 12/10/2024 09:37 AM Oxygen Saturation (83715-6) 92 % 12/10/2024 06:35 PM Oxygen Saturation (73536-4) 93 % 12/11/2024 11:31 AM Oxygen Saturation (65589-9) 90 % 12/11/2024 06:28 PM Oxygen Saturation (39338-3) 95 % 12/12/2024 11:15 AM Oxygen Saturation (86040-3) 92 % 12/12/2024 06:19 PM Oxygen Saturation (83043-2) 94 % 12/13/2024 08:46 AM Oxygen Saturation (90556-6) 94 % 12/13/2024 06:24 PM Oxygen Saturation (73004-4) 94 % 12/14/2024 02:50 PM Temperature (8310-5) 97.2 [degF] Oxygen Saturation (81472-3) 92 % Respiratory Rate (9279-1) 15 /min Heart Rate (8867-4) 64 /min Blood Pressure Systolic (8480-6) 116 mm[Hg] Blood Pressure Diastolic (8462-4) 60 mm[Hg] 12/14/2024 06:23 PM Oxygen Saturation (07528-3) 94 % 12/15/2024 06:49 AM Oxygen Saturation (25226-9) 95 % 12/15/2024 06:11 PM Oxygen Saturation (75449-9) 93 % 12/16/2024 03:03 PM Oxygen Saturation (77380-8) 92 % 12/16/2024 08:36 PM Oxygen Saturation (49752-4) 94 % 12/17/2024 11:27 AM Oxygen Saturation (25836-7) 93 % 12/17/2024 11:23 PM Oxygen Saturation (66336-3) 96 % 12/18/2024 08:36 AM Oxygen Saturation (54019-8) 98 % Respiratory Rate (9279-1) 20 /min Heart Rate (8867-4) 76 /min 12/18/2024 07:01 AM Oxygen Saturation (60699-7) 98 % 12/18/2024 01:49 PM Oxygen Saturation (45355-7) 94 % Respiratory Rate (9279-1) 20 /min Heart Rate (8867-4) 63 /min 12/18/2024 09:03 PM Oxygen Saturation (32051-4) 92 % 12/18/2024 07:02 PM Temperature (8310-5) 98.6 [degF] 12/19/2024 09:47 AM Oxygen Saturation (16785-4) 94 % 12/19/2024 06:54 PM Oxygen Saturation (34175-0) 94 % 12/20/2024 08:18 AM Oxygen Saturation (99062-4) 93 % 12/21/2024 01:54 AM Oxygen Saturation (35483-4) 94 % 12/21/2024 10:17 AM Temperature (8310-5) 97.4 [degF] Oxygen Saturation (59450-6) 93 % Respiratory Rate (9279-1) 18 /min Heart Rate (8867-4) 69 /min Blood Pressure Systolic (8480-6) 99 mm[Hg] Blood Pressure Diastolic (8462-4) 59 mm[Hg] 12/21/2024 10:16 AM Oxygen Saturation (71615-9) 93 % 12/22/2024 02:52 AM Oxygen Saturation (04179-8) 94 % 12/22/2024 10:55 AM Oxygen Saturation (90672-5) 96 % 12/22/2024 06:35 PM Oxygen Saturation (79809-4) 93 % 12/23/2024 04:28 PM Oxygen Saturation (20428-7) 92 % 12/23/2024 11:07 PM Oxygen Saturation (37965-5) 97 % 12/24/2024 08:16 AM Oxygen Saturation (04254-5) 94 % 12/24/2024 08:25 PM Oxygen Saturation (64355-3) 97 % 12/25/2024 02:11 PM Oxygen Saturation (36696-1) 95 % 12/26/2024 05:39 AM Oxygen Saturation (57087-9) 96 % 12/26/2024 05:11 AM Oxygen Saturation (46407-8) 96 % Respiratory Rate (9279-1) 17 /min Heart Rate (8867-4) 84 /min 12/26/2024 11:06 AM Oxygen Saturation (24939-4) 98 % 12/26/2024 06:27 PM Oxygen Saturation (16278-6) 93 % 12/27/2024 08:33 AM Oxygen Saturation (05124-0) 96 % 12/27/2024 06:50 PM Oxygen Saturation (78341-4) 97 % 12/28/2024 11:09 AM Body Weight (44546-1) 205 [lb_av] Body Mass Index (01623-8) 40.03 kg/m2 12/28/2024 07:23 PM Temperature (8310-5) 98.1 [degF] Oxygen Saturation (26922-5) 95 % Respiratory Rate (9279-1) 16 /min Heart Rate (8867-4) 57 /min Blood Pressure Systolic (8480-6) 112 mm[Hg] Blood Pressure Diastolic (8462-4) 62 mm[Hg] 12/28/2024 07:24 PM Oxygen Saturation (33674-9) 94 % 12/29/2024 09:07 AM Oxygen Saturation (75893-0) 96 % 12/29/2024 08:16 PM Oxygen Saturation (83854-6) 97 % 12/30/2024 03:13 PM Oxygen Saturation (63115-8) 93 % 12/30/2024 10:41 PM Oxygen Saturation (85935-5) 99 % 12/31/2024 07:11 AM Oxygen Saturation (00752-2) 91 % 01/01/2025 07:22 AM Oxygen Saturation (94568-0) 95 % 12/31/2024 07:43 PM Oxygen Saturation (00733-8) 96 % 01/01/2025 08:12 PM Oxygen Saturation (13572-1) 96 % 01/02/2025 12:18 PM Oxygen Saturation (98578-8) 94 % 01/02/2025 08:10 PM Oxygen Saturation (87678-6) 94 % 01/03/2025 10:01 AM Oxygen Saturation (25455-8) 95 % 01/03/2025 06:17 PM Oxygen Saturation (20623-9) 96 % 01/04/2025 08:03 AM Temperature (8310-5) 98.7 [degF] Oxygen Saturation (71680-4) 90 % Respiratory Rate (9279-1) 16 /min Heart Rate (8867-4) 67 /min Blood Pressure Systolic (8480-6) 97 mm[Hg] Blood Pressure Diastolic (8462-4) 43 mm[Hg] 01/04/2025 06:39 PM Oxygen Saturation (42186-9) 93 % 01/05/2025 10:18 AM Oxygen Saturation (33538-0) 96 % 01/05/2025 06:46 PM Oxygen Saturation (32504-1) 94 % 01/06/2025 06:31 AM Oxygen Saturation (88457-1) 95 % 01/06/2025 09:36 PM Oxygen Saturation (04412-4) 92 % 01/07/2025 12:48 PM Oxygen Saturation (29136-6) 96 % 01/07/2025 10:32 PM Oxygen Saturation (08977-2) 94 % 01/08/2025 09:29 AM Oxygen Saturation (98699-9) 93 % 01/09/2025 04:19 AM Oxygen Saturation (88436-4) 94 % 01/09/2025 02:55 PM Oxygen Saturation (02800-7) 92 % 01/09/2025 06:41 PM Oxygen Saturation (06726-7) 94 % 01/10/2025 11:00 AM Oxygen Saturation (44343-8) 94 % 01/10/2025 06:24 PM Oxygen Saturation (21855-2) 93 % 01/11/2025 09:49 AM Temperature (8310-5) 97.4 [degF] Oxygen Saturation (05167-2) 94 % Respiratory Rate (9279-1) 18 /min Heart Rate (8867-4) 65 /min Blood Pressure Systolic (8480-6) 132 mm[Hg] Blood Pressure Diastolic (8462-4) 62 mm[Hg] 01/11/2025 09:48 AM Oxygen Saturation (14204-4) 94 % 01/11/2025 08:46 PM Oxygen Saturation (31592-4) 93 % 01/12/2025 09:31 AM Oxygen Saturation (19291-4) 94 % 01/12/2025 07:03 PM Oxygen Saturation (87825-4) 96 % 01/13/2025 02:58 PM Oxygen Saturation (80761-8) 94 % 01/14/2025 02:04 AM Oxygen Saturation (46265-7) 95 % 01/14/2025 08:03 AM Oxygen Saturation (64748-2) 99 % 01/14/2025 08:22 PM Oxygen Saturation (36455-4) 96 % 01/15/2025 08:30 AM Oxygen Saturation (87826-1) 99 % 01/15/2025 09:05 PM Oxygen Saturation (17412-9) 96 % 01/16/2025 11:36 AM Oxygen Saturation (01193-3) 98 % 01/16/2025 06:00 PM Oxygen Saturation (57945-3) 96 % 01/17/2025 12:23 PM Oxygen Saturation (67017-2) 93 % 01/17/2025 06:16 PM Oxygen Saturation (01454-9) 93 % 01/18/2025 08:13 AM Temperature (8310-5) 98.1 [degF] Respiratory Rate (9279-1) 15 /min Heart Rate (8867-4) 78 /min Blood Pressure Systolic (8480-6) 104 mm[Hg] Blood Pressure Diastolic (8462-4) 56 mm[Hg] 01/18/2025 08:12 AM Oxygen Saturation (87297-5) 98 % 01/18/2025 08:22 PM Oxygen Saturation (53390-2) 94 % 01/19/2025 09:51 AM Oxygen Saturation (85861-7) 91 % 01/19/2025 04:45 PM Oxygen Saturation (31624-5) 98 % Respiratory Rate (9279-1) 24 /min Heart Rate (8867-4) 56 /min 01/19/2025 03:05 PM Oxygen Saturation (95731-5) 90 % Respiratory Rate (9279-1) 24 /min Heart Rate (8867-4) 84 /min 01/19/2025 08:52 PM Oxygen Saturation (60081-1) 95 % 01/20/2025 03:15 PM Oxygen Saturation (48520-6) 97 % Social History No smoking Hx information available Encounters Type CPT Code Date Location Provider Indication s encounter report 11/03/2019 02:0 9 PM - 05/20/2024 03:33 PM Viktor Baker MD 01 Advance Directives Directive Description Verification Date Supporting Document(s) Resuscitation
--- OUTSIDE RECORDS SUMMARY | 2025-01-21 01:00 | XMS_ITS | Patient Health Record ---
Author Organization [facility] Address [address] [place] [address] Care Team Providers Care Unloader Operator Name Role Phone Joao Acuna Unavailable [phone] Allergies Allergen (clinical drug ingredient) Drug/Non Drug Allergy documented on EMR Reaction Allergy Type Onset Date Status Substance with sulfonamide structure and antibacterial mechanism of action (substance) Sulfa Antibiotics Unknown Drug Allergy 01/11/2004 Active Reason For Referral No Information Medications Medication SIG (Take, Route, Frequency, Duration) Notes Start Date End Date Status Nitrostat 0.4 MG Tablet Sublingual Dissolve 1 tablet(s) under the tongue may repeat every 5 minutes. Maximum of 3 doses in 15 minutes Sublingual; Duration: 30 Nitrostat 0.4mg Tablets, Sublingual Dissolve 1 tablet(s) under the tongue may repeat every 5 minutes. Maximum of 3 doses in 15 minutes #100 (One Erbacon) tablet(s) 01/18/2007 Active Caltrate 600 + D 600 mg(1,500mg) -400 unit tablet 2 tab po q hs at supper; Duration: 30 *please review for potential update for e-prescription and drug interaction check* Caltrate 600 + D Tablet 2 tab po q hs at supper #30 (Thirty) 60 tablet bottle 10/18/2007 Active Rocaltrol 0.25 mcg Capsule Take 1 capsule(s) by mouth qam Oral; Duration: 30 Rocaltrol 0.25mcg Capsules Take 1 capsule(s) by mouth qam #30 (Thirty) capsule(s) 02/01/2007 Active Tricor 145 mg Tablet Take 1 tablet(s) by mouth daily Oral; Duration: 30 Tricor 145mg Tablet Take 1 tablet(s) by mouth daily #30 (Thirty) tablet(s) 06/17/2007 Active Metoprolol Tartrate 25 MG Tablet 1 tab(s) po q 12 hours Oral; Duration: 30 Metoprolol 25mg Tablet 1 tab(s) po q 12 hours #60 (Sixty) tablet(s) 01/18/2007 Active Simvastatin 40 MG Tablet Take 1 tablet(s) by mouth at bedtime. Stop Vytorin Oral; Duration: 30 Simvastatin 40mg Tablet Take 1 tablet(s) by mouth at bedtime. Stop Vytorin #30 (Thirty) tablet(s) 09/13/2007 Active Ergocalciferol Take 1 tablet(s) by mouth weekly X 8 weeks then once monthly.; Duration: 30 *please review for potential update for e-prescription and drug interaction check* Ergocalciferol 50,000IU Tablet Take 1 tablet(s) by mouth weekly X 8 weeks then once monthly. QS for 30 day(s) 10/18/2007 Active Aspirin Adult Low Strength 81 MG Tablet Delayed Release Take 1 tablet(s) by mouth qam Oral; Duration: 30 Aspirin 81mg Tablets, Enteric Coated Take 1 tablet(s) by mouth qam #30 (Thirty) tablet(s) 09/13/2007 Active Actos 15 MG Tablet Take 1 tablet(s) by mouth daily Oral; Duration: 30 Actos 15mg Tablet Take 1 tablet(s) by mouth daily #30 (Thirty) tablet(s) 05/06/2007 Active Problems Problem Type SNOMED Code ICD Code Onset Dates Problem Status W/U Status Risk Notes Problem Inclusion conjunctivitis (73303637) Inclusion conjunctivitis (077.0) 2005 Problem resolved confirmed [id number]- Problem Allergic rhinitis caused by pollen (disorder) (21692554) Allergic rhinitis due to pollen (477.0) 2004 Problem resolved confirmed [id number]- Problem Acute sinusitis (78089847) Acute sinusitis, unspecified (461.9) 2003 Problem resolved confirmed [id number]- Problem 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 (993502879) Extrinsic asthma, with (acute) exacerbation (493.02) 2003 Problem resolved confirmed [id number]- Problem Sialolithiasis (10212637) Sialolithiasis (527.5) 2005 Problem resolved confirmed [id number]- Problem Gynecological examination normal (187751207509726) Routine gynecological examination (V72.31) 2006 Problem resolved confirmed [id number]- Problem Hypercholesterolemia (98859885) Hypercholesterolemia (272.0) 2004 Problem resolved confirmed [id number]- Problem Mixed urinary incontinence (095254960) Mixed urinary incontinence (788.33) 2007 Problem resolved confirmed [id number]- Problem Mild diabetic neuropathy with slight loss of protective sensation in feet (250.6) 2007 Active confirmed [id number]- Problem Otalgia (551599846) Otalgia (388.71) 052005 Problem resolved confirmed [id number]- Problem Shortness of breath (196822729) Shortness of breath (786.09) 2005 Problem resolved confirmed [id number]- Problem Shoulder pain (65138433) Shoulder pain (719.41) 2006 Problem resolved confirmed [id number]- Problem Acute bronchitis (33995908) Bronchitis, acute (466.0) 2004 Problem resolved confirmed [id number]- Problem Disorder of hematopoietic system (31991190) Other abnormal laboratory result on blood (790.99) 2004 Problem resolved confirmed [id number]- Problem Postmenopausal bleeding (14177413) Postmenopausal vaginal bleeding (627.1) 2007 Problem resolved confirmed [id number]- Problem Dallam hump (46791763) Dallam hump (278.1) 2007 Active confirmed [id number]- Problem Chest pain (07085240) Chest pain (786.51) 2005 Problem resolved confirmed [id number]- Problem 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 homocysteine level (270.4) 2004 Problem resolved confirmed [id number]- Problem Esophageal stricture (85415204) Esophageal stricture (530.3) 2005 Problem resolved confirmed [id number]- Problem Kidney mass (252505826) Kidney mass (593.9) 2006 Active confirmed [id number] [id number]- Problem Pneumococcal pneumonia (966832040) Lobar pneumonia, organism unspecified (481) 2006 Problem resolved confirmed [id number]- Problem Lymphadenopathy (27426155) Lymphadenopathy (785.6) 2007 Problem resolved confirmed [id number]- Problem Ear ache (593135394) Ear ache (388.71) 2005 Problem resolved confirmed [id number]- Problem Mixed hyperlipidemia (946069658) Hypercholesterolemia with hypertriglyceridemia (272.2) 2004 Problem resolved confirmed [id number]- Problem Hypertension (39513593) Hypertension (401.1) 2007 Active confirmed [id number]- Problem Influenza (7982177) Influenza (487.8) 2004 Problem resolved confirmed [id number]- Problem Disorder of sacrum (33976372) Sacroiliac pain (724.6) 2006 Active confirmed [id number]- Problem Breast examination (87784982) Screening breast exam - other (V76.19) 2006 Problem resolved confirmed [id number] 5911- Problem Postmenopausal osteoporosis (662030305) Postmenopausal osteoporosis (733.01) 2004 Problem resolved confirmed [id number] [id number]- Problem Seborrheic dermatiti s (39280416) Seborrheic dermatitis (690.18) 2003 Problem resolved confirmed [id number] 5911- Problem Sore throat (775655078) Sore throat (784.1) 2004 Problem resolved confirmed [id number] 5911- Problem Unstable angina (9284938) Unstable angina (411.1) 2006 Active confirmed [id number]- Problem Acute upper respiratory infection (84919806) Acute upper respiratory infection (465.8) 2006 Problem resolved confirmed [id number]- Problem Acute atopic conjunctivitis (36198648) Acute conjunctivitis, atopic (372.05) 2004 Problem resolved confirmed [id number] [id number]- Problem Allergic rhinitis caused by pollen (47391578) Allergic rhinitis, pollen-induced (477.0) 2004 Problem resolved confirmed [id number]- Problem Coronary arteriosclerosis (disorder) (78552443) ASHD (414.01) 2005 Active confirmed [id number]- Problem Candidal intertrigo (538829778) Candidal intertrigo (112.3) 2007 Problem resolved confirmed [id number]- Problem Chronic low back karmen n (559888135) Chronic low back pain (724.2) 2006 Active confirmed [id number]- Problem Migraine with aura (7177868) Classic migraine (346.00) 2007 Active confirmed [id number]- Problem Otogenic otalgia (58031161) Ear pain due to ear disorder (388.71) 2006 Problem resolved confirmed [id number]- Problem Iron deficiency anemia secondary to inadequate dietary iron intake (551847704) Iron deficiency anemia, due to inadequate dietary intake (280.1) 2005 Problem resolved confirmed [id number]- Problem Urinary tract infection (85914405) Urinary tract infection (595.0) 2006 Problem resolved confirmed [id number]- Problem Acquired hypothyroidism (896363221) Acquired hypothyroidism (244.8) 2003 Problem resolved confirmed [id number] 5911- Problem Acquired hypothyroidism (236205077) Acquired hypothyroidism (244.9) 2005 Active confirmed [id number]- Problem Acute sinusitis (36056593) Acute sinusitis (461.8) 2003 Problem resolved confirmed [id number]- Problem Chronic bronchitis (00239594) Chronic bronchitis (491.0) 2005 Problem resolved confirmed [id number]- Problem Abnormal laborat ory test findings without diagnosis (796.4) 2004 Problem resolved confirmed [id number]- Problem Urinary incontinence (290053294) urinary dribbling (788.30) 2006 Problem resolved confirmed Andrew-[id number]- Problem Synovial cyst (694213139) Synovial cyst, unspecified (727.40) 2004 Problem resolved confirmed Andrew-[id number] 5911- Problem Acute upper respiratory infection (97682021) Upper respiratory illness (465.8) 2006 Problem resolved confirmed [id number]- Problem Hoarseness (57615055) Hoarseness (784.49) 2006 Active confirmed Andrew-[id number] 5911- Problem Osteoporosis (37886432) Osteoporosis (733.09) 2007 Active confirmed Andrew-[id number] 5911- Problem C-reactive protein abnormal (449296897) Elevated C-reactive protein (CRP) (790.95) 2006 Active confirmed Andrew-[id number] 5911- Problem Essential hypertension (63690896) Essential hypertension (401.1) 2004 Problem resolved confirmed Andrew-[id number] 5911- Problem Gastroesophageal reflux disease (679668615) GERD (530.81) 2005 Problem resolved confirmed Andrew-[id number] 5911- Problem Hemorrhoids (disorder) (32009375) Hemorrhoids, external (455.3) 2007 Active confirmed Andrew-[id number] 5911- Problem 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
--- NOTE | 2025-01-21 01:16 | XRR_ITS ---
PROCEDURE INFORMATION: Exam: XR Chest Exam date and time: 01/21/2025 1:19 AM Age: 79 years old Clinical indication: Cough and shortness of breath; Prior surgery; Surgery date: 6+ months; Surgery type: Thyroid. Gb; EMS arrival for resp distress. Cough with SOB. TECHNIQUE: Imaging protocol: Radiologic exam of the chest. Views: 1 view. COMPARISON: CR XR chest 1V portable [id number] 05/20/2024 4:42 PM FINDINGS: Lungs: Right basilar atelectasis, similar to prior exams. No new focal consolidation. Pleural spaces: No large pleural effusion. No pneumothorax. Heart/Mediastinum: Stable cardiomediastinal silhouette. Bones/joints: No acute abnormality. XR/XR chest 1V portable [id number] IMPRESSION: No acute findings.
--- NOTE | 2025-01-21 01:19 | W.ED.SOB ---
HPI - SOB/Dyspnea General: Chief Complaint: Shortness of Breath/Dyspnea Stated Complaint: RESP. DISTRESS Time Seen by Provider: 01/21/25 01:10 History of Present Illness: HPI Narrative: Patient is an 79-year-old female presenting with respiratory symptoms.The patient has been experiencing cough, which she describes as just a little bit. She recalls coughing up sputum at least once. Patient was recently at a [facility] where she reportedly received multiple breathing treatments (reportedly five treatments in a row). She is uncertain if she has had fever. She denies chest pain. The patient mentions having experienced similar symptoms in the past, though she cannot recall specific details due to the length of time that has passed. She also reports current leg swelling. Related Data Home Medications ?Medication ?Instructions ?Recorded ?Confirmed albuterol sulfate 90 mcg/actuation 2 puff inhalation Q6H PRN 07/06/19 05/20/24 aerosol inhaler (Ventolin HFA) Shortness Of Breath umeclidinium 62.5 mcg-vilanterol 1 inh inhalation DAILY@07/06/19 05/20/24 25 mcg/actuation powdr for inhalation (Anoro Ellipta) nitroglycerin 0.4 mg sublingual 0.4 mg sublingual Q5M PRN Chest 07/26/19 05/20/24 tablet Pain sertraline 100 mg tablet 200 mg PO DAILY@10/18/19 05/20/24 acetaminophen 325 mg tablet 325 - 650 mg PO Q6H PRN Pain 07/31/22 05/20/24 (Tylenol) aspirin 81 mg tablet,delayed 81 mg PO DAILY@07/31/22 05/20/24 release atorvastatin 40 mg tablet 40 mg PO BEDTIME@07/31/22 05/20/24 bisacodyl 5 mg tablet,delayed 10 mg PO DAILY PRN Constipation 07/31/22 05/20/24 release (Dulcolax (bisacodyl)) clonazepam 0.5 mg tablet 0.5 mg PO DAILY@07/31/22 05/20/24 clonazepam 1 mg tablet 1 mg PO BEDTIME@07/31/22 05/20/24 levothyroxine 200 mcg tablet 200 mcg PO DAILY@07/31/22 05/20/24 cholecalciferol (vitamin D3) 10 400 unit PO DAILY@05/27/23 05/20/24 mcg (400 unit) tablet (Vitamin D3) ipratropium 0.5 mg-albuterol 3 mg 3 ml inhalation Q6H PRN Dyspnea 05/27/23 05/20/24 (2.5 mg base)/3 mL nebulization soln spironolactone 25 mg tablet 12.5 mg PO DAILY@05/27/23 05/20/24 buspirone 10 mg tablet 10 mg PO BID 05/20/24 05/20/24 menthol 0.44 %-zinc oxide 20.6 % 1 applic topical DAILY 05/20/24 05/20/24 topical ointment (Calmoseptine) Previous Rx's ?Medication ?Instructions ?Recorded furosemide 40 mg tablet See Rx Instructions .Route 05/25/24 .COMPLEX #60 tabs levofloxacin 750 mg tablet 750 mg PO DAILY 5 days #5 tabs 01/21/25 prednisone 20 mg tablet 60 mg (3 x 20 mg) PO DAILY 5 days 01/21/25 #15 tabs Allergies Allergy/AdvReac Type Severity Reaction Status Date / Time methylprednisolone (From Allergy ALGY-Rash Verified 05/27/23 07:58 Solu-Medrol) piperacillin (From Zosyn) Allergy ALGY-Rash Verified 05/27/23 07:58 tazobactam (From Zosyn) Allergy ALGY-Rash Verified 05/27/23 07:58 [facility] ED PFSH: Medical History Acute respiratory failure with hypoxia -Required intubation following CODE BLUE, extubated on 05/14 Femur fracture, right History of femur fracture Acute encephalopathy CHF exacerbation Pneumonia Respiratory failure with hypoxia and hypercapnia Acute exacerbation of chronic obstructive airways disease COPD (chronic obstructive pulmonary disease) -follows up with Dr. Lane -no acute exacerbation, not oxygen dependent at baseline Dementia GI bleed Normocytic anemia -acute blood loss on chronic normocytic anemia; previously had macrocytic anemia secondary to vitamin B12 and folate deficiencies -plan for EGD and colonoscopy by Dr. Sapp; per my discussion with him, would like to wait at least 6-8 weeks post-op to allow for appropriate recovery -AC has been on hold; had previously been on Eliquis due to UE superficial DVT -s/p 4 units PRBCs due to acute drop in Hg (09/03 & 09/05); continue to closely monitor H/H. Hg increased to 9.4 today -baseline Hg appears to be around 11 -on PPI CAD (coronary artery disease) -NSTEMI and code blue during hospitalization in 04/2019 -has been following up with cardiology -Echo (04/2019): EF=64%, no RWMA, G1DD, mild MR, trace AR -had coronary angiogram (06/2019) showing normal coronaries -on statin, BB Hypocalcemia -previously noted; corrected Ca-8.5 -PTH wnl Congestive heart failure -no acute exacerbation currently -last Echo: EF=64%, no RWMA, G1DD, mild MR, trace AR DVT (deep venous thrombosis) -previously found to have R basilic vein DVT -had been on AC with Eliquis, now discontinued; not a good candidate for further anticoagulation due to underlying anemia NSTEMI (non-ST elevated myocardial infarction) Macrocytic anemia -has chronic macrocytic anemia; has evidence of vitamin B12 and folate deficiency -replacing vitamin B12, folate -also noted evidence of low iron Lymphedema Non-insulin dependent type 2 diabetes mellitus -A1c-5.5 -Acchucheks, hypoglycemia precautions, ISS Hypertension -VSS; continue to monitor Hypothyroidism -Hx of thyroid cancer s/p thyroidectomy with acquired hypothyroidism -continue levothyroxine Surgical History H/O esophagogastroduodenoscopy (09/20/19) Status post colonoscopy with polypectomy (09/20/19) S/P cholecystectomy History of ankle surgery H/O thyroidectomy Family History Other Breast cancer CAD (coronary artery disease) Diabetes Hypertension Social History Smoking and tobacco/nicotine status: former use of tobacco/nicotine Quit status (tobacco/nicotine): has quit using Former quit date comment: Smoked briefly in her teens. Alcohol intake: never Substance/Drug Use: never Lives independently: Yes Household members: none Housing: Apartment Current occupational status: disabled Do you think of yourself as: Straight/Heterosexual Current gender identity: Female Physical Exam Const: GENERAL APPEARANCE: cooperative, ill appearing and frail appearing HENMT: COMMON NORMALS: normocephalic, atraumatic and Normal external nose present HEAD & SCALP: normocephalic and atraumatic FACE & SINUS: normal facial exam and face symmetric NOSE: Normal external nose present Eye: COMMON NORMALS: Equal, round and reactive pupils present and EOMs intact bilaterally PUPIL: Yes Equal, round and reactive pupils present Neck/C-Spine: GENERAL: Yes trachea midline Chest: CHEST: Yes Symmetrical chest wall rise Resp: EFFORT & INSPECTION: Yes tachypneic and Yes labored AUSCULTATION: wheezes and diminished lung sounds Cardio: COMMON NORMALS: regular rate and regular rhythm RATE: regular rate RHYTHM: regular rhythm GI: COMMON NORMALS: Normal to inspection, nondistended, normoactive bowel sounds present Extremity: GENERAL: Yes edema Neuro: CLAUDIA COMA SCALE: document GCS findings Rogers coma scale eye opening: Spontaneous Rogers coma scale verbal response: Orientated Rogers coma scale motor response: Obey commands Claudia coma scale total score: 15 SENSORY EXAM: Yes extremities (intact) Psych: COMMON NORMALS: speech normal SPEECH: Yes normal speech Skin: COMMON NORMALS: no rashes or lesions noted GENERAL SKIN EXAM: no rashes or lesions noted Course Vital Signs: Vital signs: Vital Signs Pulse Rate 72 01/21/25 09:35 Respiratory Rate 13 01/21/25 09:28 Blood Pressure 135/59 01/21/25 09:35 Pulse Oximetry 98 01/21/25 09:35 Oxygen Delivery Me thod Nasal Cannula 01/21/25 09:28 Oxygen Flow Rate 3 01/21/25 09:28 Fraction of Inspir ed Oxygen 30 01/21/25 02:55 MDM - SOB/Dyspnea Medical Decision Making 79-year-old female with a history of COPD and coronary disease. She presents with respiratory distress. [facility] staff found her saturations to be in the 70s on oxygen. She received 5 breathing treatments in a row before and and route to the hospital. She is somewhat improved on my exam. However, blood gas still shows a pH of 7.3 4 with a pCO2 of 51. Lactic acid is 1.9. White blood cell count is 8.3. She is covered with antibiotics after blood cultures, however chest x-ray is negative for acute infiltrate. Swabs are negative for COVID flu and RSV. Her BNP is 2000. Baseline troponin is 36. EKG shows a sinus rhythm with a rate of 87, [place] interval is 160, QRS 100. Intervals are normal. Holly is normal. No acute ST wave changes. EKG is timed 0055. She is placed on BiPAP due to labored breathing and respiratory acidosis. She is given IV dexamethasone, IV Lasix 80 mg. The patient is much improved after a couple of hours of BiPAP here. She is taken off the BiPAP. Placed on 3 L. Respirations are 20 or less. Chest x-ray is read as negative. she will be treated for exacerbation of COPD. can return to [place] on O2, nebs, steroids, abx. to return for any problems. Lab Data 01/21/25 01:33 01/21/25 01:33 Labs/Radiology: Radiology Impressions Chest X-Ray 01/21/25 01:16 IMPRESSION: No acute findings. Laboratory Results WBC 8.29 10^3/uL (3.29-11.43) 01/21/25 01:33 RBC 4.48 10^6/uL (3.85-5.65) 01/21/25 01:33 Hgb 11.30 g/dL (11.27-16.99) 01/21/25 01:33 Hct 37.2 % (36-47) 01/21/25 01:33 MCV 83.0 fl (85-98) L 01/21/25 01:33 MCH 25.2 pg (27-33) L 01/21/25 01:33 MCHC 30.4 g/dL (30-55) 01/21/25 01:33 RDW 16.3 % (12.1-15.1) H 01/21/25 01:33 Plt Count 230 10^3/cmm (157-399) 01/21/25 01:33 MPV 9.8 fL (7.4-10.4) 01/21/25 01:33 Neut % (Auto) 94.9 % 01/21/25 01:33 Lymph % (Auto) 3.5 % 01/21/25 01:33 Arthur % (Auto) 1.1 % 01/21/25 01:33 Eos % (Auto) 0.0 % 01/21/25 01:33 Baso % (Auto) 0.1 % 01/21/25 01:33 Neut # (Auto) 7.87 10^3/uL (1.8-7.7) H 01/21/25 01:33 Lymph # (Auto) 0.3 10^3/uL (0.8-4.8) L 01/21/25 01:33 Arthur # (Auto) 0.1 10^3/uL (0.2-0.9) L 01/21/25 01:33 Eos # (Auto) 0.0 10^3/uL (0.0-0.8) 01/21/25 01:33 Baso # (Auto) 0.0 10^3/uL (0.0-0.1) 01/21/25 01: Nucleated RBC % (auto) 0 % 01/21/25 01: Nucleated RBCs # 0.0 /100WBC 01/21/25 01:33 Specimen Type Arterial 01/21/25 02:19 Sample Site Radial, right 01/21/25 02:19 ABG pH 7.34 (7.35-7.45) L 01/21/25 02:19 ABG pCO2 51.2 mmHg (35-45) H 01/21/25 02:19 ABG pO2 172.0 mmHg (80.0-100.0) H 01/21/25 02:19 ABG HCO3 27.3 mmol/L (22-26) H 01/21/25 02:19 ABG Base Excess 1.0 mmol/L (-2.0-2.0) 01/21/25 02:19 Jordan Test Pos 01/21/25 02:19 Hematocrit 30.9 % (37-47) L 01/21/25 02:19 Hgb O2 Saturation 98.7 % (95-100) 01/21/25 02:19 Carboxyhemoglobin 1.0 %THgb (0.4-20.1) 01/21/25 02:19 Methemoglobin 0.3 % (0.4-1.5) L 01/21/25 02:19 Total Hemoglobin 10.1 g/dL (12-16) L 01/21/25 02:19 O2 Delivery Device Nc 01/21/25 02:19 O2 Liters/Min 5.0 % 01/21/25 02:19 Supervisor Hardboard ID [email or web address] 01/21/25 02:19 Sodium 136 mmol/L (136-145) 01/21/25 01:33 Potassium 4.7 mmol/L (3.5-5.1) 01/21/25 01:33 Chloride 95 mmol/L (98-107) L 01/21/25 01:33 Carbon Dioxide 26 mmol/L (22-29) 01/21/25 01:33 Anion Gap 19.7 (5-19) H 01/21/25 01:33 BUN 28 mg/dL (8-23) H 01/21/25 01:33 Creatinine 1.1 mg/dL (0.5-0.9) H 01/21/25 01:33 GFR Calculation Not Reportable 01/21/25 01:33 Glucose 207 mg/dL (65-115) H 01/21/25 01:33 Calculated Osmolality 294 mOsm/kg (285-295) 01/21/25 01:33 Lactic Acid 1.9 mmol/L (0.5-2.2) 01/21/25 01:33 Calcium 7.1 mg/dL (8.5-10.5) L 01/21/25 01:33 Magnesium 1.7 mg/dL (1.7-2.3) 01/21/25 01:33 Total Bilirubin 0.3 mg/dL (0.15-1.2) 01/21/25 01:33 AST 13 U/L (0-32) 01/21/25 01:33 ALT 8 U/L (0-33) 01/21/25 01:33 Alkaline Phosphatase 110 U/L (35-105) H 01/21/25 01:33 Troponin T Baseline 36 ng/L (0-10) H 01/21/25 01:33 Troponin T 120 Minute 44.24 ng/L (0-10) H 01/21/25 03:13 Delta Troponin T 8.24 ABS# (0-10) 01/21/25 03:13 NT-Pro-B Natriuret Pep 2181 pg/mL (0-450) H 01/21/25 01:33 Total Protein 6.7 g/dL (6.6-8.7) 01/21/25 01:33 Albumin 3.8 g/dL (3.5-5.2) 01/21/25 01:33 Globulin 2.9 g/dL (1.3-4.6) 01/21/25 01:33 Influenza A (PCR) Negative (Negative) 01/21/25 01:58 Influenza Type B (PCR) Negative (Negative) 01/21/25 01:58 RSV (PCR) Negative (Negative) 01/21/25 01:58 SARS-CoV-2 (PCR) Negative (Negative) 01/21/25 01:58 All radiology interpretation(s) finalized by discharge Discharge Plan Discharge Patient Disposition: Home Clinical Impression: COPD with acute exacerbation, Hypercapnic respiratory failure Condition: Stable Prescriptions: New prednisone 20 mg tablet 60 mg PO DAILY 5 Days Qty: 15 0RF levofloxacin 750 mg tablet 750 mg PO DAILY 5 Days Qty: 5 0RF No Action Anoro Ellipta 62.5-25 mcg/actuation blister with device 1 inh INHALATION DAILY@07 albuterol sulfate [Ventolin HFA] 90 mcg/actuation HFA aerosol inhaler 2 puff INHALATION Q6H PRN (Reason: Shortness Of Breath) nitroglycerin 0.4 mg tablet, sublingual 0.4 mg SUBLINGUAL Q5M PRN (Reason: Chest Pain) Rx Instructions: do not exceed 3 doses per episode sertraline 100 mg Tablet 200 mg PO DAILY@07 atorvastatin 40 mg tablet 40 mg PO BEDTIME@20 acetaminophen [Tylenol] 325 mg Tablet 325 - 650 mg PO Q6H PRN (Reason: Pain) clonazepam 0.5 mg tablet 0.5 mg PO DAILY@07 clonazepam 1 mg tablet 1 mg PO BEDTIME@20 aspirin 81 mg Tablet,Delayed Release (Dr/Ec) 81 mg PO DAILY@07 levothyroxine 200 mcg tablet 200 mcg PO DAILY@05 bisacodyl [Dulcolax (bisacodyl)] 5 mg Tablet,Delayed Release (Dr/Ec) 10 mg PO DAILY PRN (Reason: Constipation) ipratropium-albuterol 0.5 mg-3 mg(2.5 mg base)/3 mL Solution For Nebulization 3 ml INHALATION Q6H PRN (Reason: Dyspnea) spironolactone 25 mg tablet 12.5 mg PO DAILY@07 cholecalciferol (vitamin D3) [Vitamin D3] 10 mcg (400 unit) Tablet 400 unit PO DAILY@07 buspirone 10 mg tablet 10 mg PO BID menthol-zinc oxide [Calmoseptine] 0.44-20.6 % ointment 1 applic topical DAILY furosemide 40 mg tablet See Rx Instructions .ROUTE .COMPLEX Qty: 60 0RF Rx Instructions: 1tab (40mg) in qam and 0.5tab(20mg) in qpm Discharge Orders: Discharge ED (Routine); Ordered 01/21/25 Ordered By: Juwan Garcia Referrals: Viktor Baker MD [Primary Care Provider, [facility]] Patient Instructions: COPD (Chronic Obstructive Pulmonary Disease) (ED), Opioid Safety, Pain Management, Patient Portal & True Instructions Activity Restrictions/Additional Instructions: Continue scheduled breathing treatments 4 times daily for the next 48 hours, then as needed following that. Antibiotics as directed. Steroids as directed. Return for worsening shortness of breath despite treatment, or development of fever chest pain or other concerning symptoms. Call your doctor Thursday morning for follow-up. Print Language: Hungarian Coding Level of Care Code ED Record Retrieval Specialist for Idania Allison
[2025-01-21 01:42] LABS: Hematocrit 37.2 % (36-47); Hemoglobin 11.30 g/dL (11.27-16.99); Mean Corpuscular HGB Conc 30.4 g/dL (30-55); Mean Corpuscular Hemoglobin 25.2 pg (27-33); Mean Corpuscular Volume 83.0 fl (85-98); Nucleated Red Blood Cells % 0 %; Platelet Count 230 10^3/cmm (157-399); Red Blood Count 4.48 10^6/uL (3.85-5.65); White Blood Count 8.29 10^3/uL (3.29-11.43)
[2025-01-21] MEDS: magnesium sulfate premix 2 GM/50 ML PIGGYBACK IV (01:55)
[2025-01-21 02:03] LABS: Lactic Sepsis W/Reflex 1.9 mmol/L (0.5-2.2)
[2025-01-21 02:06] LABS: Troponin(5th) Baseline 36 ng/L (0-10)
[2025-01-21 02:13] LABS: Alanine Aminotransferase 8 U/L (0-33); Albumin Level 3.8 g/dL (3.5-5.2); Alkaline Phosphatase 110 U/L (35-105); Anion Gap 19.7 (5-19); Aspartate Amino Transferase 13 U/L (0-32); Blood Urea Nitrogen 28 mg/dL (8-23); Calcium 7.1 mg/dL (8.5-10.5); Carbon Dioxide 26 mmol/L (22-29); Chloride 95 mmol/L (98-107); Creatinine Clr Calc Pharmacy 43.0012; Globulin 2.9 g/dL (1.3-4.6); Glucose 207 mg/dL (65-115); Magnesium 1.7 mg/dL (1.7-2.3); NT Pro B Type Natriuretic Pept 2181 pg/mL (0-450); Osmolality Calculated 294 mOsm/kg (285-295); Potassium 4.7 mmol/L (3.5-5.1); Sodium 136 mmol/L (136-145); Total Protein 6.7 g/dL (6.6-8.7)
[2025-01-21 02:30] LABS: ABG PCO2 51.2 mmHg (35-45); ABG PH Result 7.34 (7.35-7.45); Arterial Blood Gas Hematocrit 30.9 % (37-47); Blood Gas Allen Test Pos; Blood Gas LPM 5.0 %; Blood Gas Sample Site Radial, right; Blood Gas Sample Type Arterial; Carboxyhemoglobin 1.0 %THgb (0.4-20.1); HCO3 ABG 27.3 mmol/L (22-26); Methemoglobin 0.3 % (0.4-1.5); PO2 ABG 172.0 mmHg (80.0-100.0)
[2025-01-21 02:42] LABS: Respiratory Syncytial Virus Ce NEGATIVE (Negative); SARS-CoV-2 PCR NEGATIVE (Negative)
[2025-01-21 03:38] LABS: Troponin 5 2HR 44.24 ng/L (0-10); Troponin 5 2HR Delta 8.24 ABS# (0-10)
[2025-01-21] MEDS: FUROsemide 10 mg/mL SDV 10mL 80 MG IVP (03:52)
--- NOTE | 2025-01-21 03:52 | ECG_ITS ---
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
[2025-01-21] MEDS: levofloxacin-dextrose 5 % 750 MG/150 ML PREMIX 100 MG IV (03:55)
== END 2025-01-21 09:43 | disposition home or self-care (01) ==
PROVIDERS: Emergency Provider Emergency Medicine; PCP Family Medicine
DX: J96.92 Respiratory failure, unspecified with hypercapnia (principal); Z11.52 Encounter for screening for COVID-19; Z79.82 Long term (current) use of aspirin; Z87.891 Personal history of nicotine dependence; I25.10 Atherosclerotic heart disease of native coronary artery without angina pectoris; J44.9 Chronic obstructive pulmonary disease, unspecified; I11.0 Hypertensive heart disease with heart failure; I50.9 Heart failure, unspecified
CPT/HCPCS: 36415; 36600; 71045; 80053; 82805; 83605; 83735; 83880; 84484; 85025; 87040; 87637; 93005; 94640; 94660; 96374; 96375; 99285; J1100; J1938; J1956; J3475; J9999